=== PATIENT | female | born 1940 | race Caucasian/White ===

== ENCOUNTER → 2021-02-16 | Outpatient (CLI) | payer MEDICARE, MEDICAID ==
--- NOTE | 2021-03-17 03:04 | ECWPNPC ---
PATIENT NAME: TIANNA THORNTON : 1940 GENDER: FEMALE VISIT DATE: 02/16/2021 DISCHARGE DATE: 02/16/21939 VISIT LOCKED DATE TIME: PHYSICIAN: BARON GODINEZ PHYSICIAN PAGER NO: ACTIVE RESOURCE: BARON GODINEZ REASON FOR APPOINTMENT 1. LOW BACK PAIN HISTORY OF PRESENT ILLNESS DEPRESSION SCREENING: PHQ-2 (2015 EDITION) LITTLE INTEREST OR PLEASURE IN DOING THINGS?NOT AT ALL FEELING DOWN, DEPRESSED, OR HOPELESS?NOT AT ALL TOTAL SCORE0 GENERAL: HPI 80-YEAR-OLD FEMALE IN FOR INITIAL PAIN CONSULT REGARDING LOW BACK PAIN WITH RADICULOPATHY. PATIENT ADMITS TO RADICULOPATHY DOWN HER RIGHT LEG. PATIENT HAS EXPERIENCED BACK PAIN FOR SEVERAL YEARS HOWEVER SHE ADMITS TO EXACERBATION OF HER RADICULAR SYMPTOMS SINCE A FALL IN 2018. SHE DENIES INJECTIONS IN THE PAST. SHE RATES HER PAIN CURRENTLY AT A 3 OUT OF 10 BUT STATES THAT IN THE EVENING IT GETS TO A 7-8 OUT OF 10.. - -. FALL RISK SCREENING: SCREENING ONE FALL REPORTED IN THE LAST YEAR WITH INJURY. PATIENT DID NOT SEEK IMMEDIATE MEDICAL TREATMENT.. PAIN SCREENING: PATIENT HAS A COMPLAINT OF ACUTE OR CHRONIC PAIN :YES LOCATION OF PAIN:LOW BACK, RIGHT HIP INTENSITY OF PAIN (SCALE OF 1 TO 10):3 7 OR 8 MORE IN THE EVENING. WHAT DOES YOUR PAIN FEEL LIKE:ACHING, BURNING, CONTINOUS DURATION:CONTINOUS PAIN IS INCREASED BY:ACTIVITIES, PROLONGED STANDING, OTHERS PAIN IS DECREASED BY:USE OF PAIN MEDICATIONS, SITTING, OTHERS REPOSITIONING NURSING NOTE: - -. PAIN CENTER INTAKE QUESTIONS: DO YOU HAVE A HISTORY OF MRSA? :NO DO YOU TAKE A BLOOD THINNERS? :YES PLAVIX AND 81MG ASPIRIN DO YOU HAVE ANY BLEEDING DISORDERS? :YES DUODENAL ULCER ANY NEW NUMBNESS OR WEAKNESS IN YOUR LEGS OR ARMS? :NO ANY PACEMAKER,DEFIBRILLATOR, OR DORSAL COLUMN STIMULATOR? :YES PACEMAKER DO YOU HAVE ANY RASHES OR OPEN SORES? :NO ARE YOU ALLERGIC TO IV DYE? :NO ARE YOU DIABETIC? :NO ANY NEW PROBLEMS WITH YOUR MEDICATIONS? :NO HAVE YOU RECEIVED A VACCINE IN THE PAST 30 DAYS? :NO DO YOU PLAN TO RECEIVE A VACCINE IN THE NEXT 21 DAYS? :NO DO YOU NEED ANY PRESCRIPTION? :NO DO YOU TAKE ANY IMMUNOSUPPRESSIVE MEDICATIONS? :NO IS THERE A CHANCE YOU COULD BE ? :NO ARE YOU BREAST FEEDING? :NO CURRENT MEDICATIONS TAKING FAMOTIDINE 20 MG TABLET 1 TAB ORALLY TWICE A DAY TAKING VITAMIN D3 50 MCG (2000 UT) CAPSULE 1 CAPSULE ORALLY ONCE A DAY TAKING MAGNESIUM 250 MG TABLET 1 TABLET WITH A MEAL ORALLY ONCE A DAY TAKING ASPIRIN 81 81 MG TABLET CHEWABLE 1 TABLET ORALLY ONCE A DAY TAKING METOPROLOL TARTRATE 25 MG TABLET 1 TABLET WITH FOOD ORALLY QHS TAKING NITROGLYCERIN 0.4 MG TABLET SUBLINGUAL 1 TAB SUBLINGUAL NEEDED EVERY 5 MIN X 3 DOSES TAKING CLOPIDOGREL BISULFATE 75 MG TABLET 1 TABLET ORALLY ONCE A DAY TAKING OXYBUTYNIN CHLORIDE 5 MG TABLET 1 TABLET ORALLY TWICE A DAY TAKING CITALOPRAM HYDROBROMIDE 20 MG TABLET 1 TABLET ORALLY ONCE A DAY TAKING BREO ELLIPTA 100-25 MCG/INH AEROSOL POWDER BREATH ACTIVATED 1 PUFF INHALATION ONCE A DAY TAKING INCRUSE ELLIPTA 62.5 MCG/INH AEROSOL POWDER BREATH ACTIVATED 1 PUFF INHALATION ONCE A DAY TAKING HYDROCODONE-ACETAMINOPHEN 10-325 MG TABLET 1 TABLET NEEDED ORALLY QID PRN PAIN, MDD=4 TAKING LYRICA 150 MG CAPSULE 1 CAPSULE ORALLY TWICE A DAY, CODE D, MDD=2 TAKING CHLORTHALIDONE 25 MG TABLET 1/2 TABLET IN THE MORNING WITH FOOD ORALLY ONCE A DAY TAKING LISINOPRIL 5 MG TABLET 1 TABLET ORALLY ONCE A DAY AT BEDTIME TAKING ISOSORBIDE MONONITRATE ER 60 MG TABLET EXTENDED RELEASE 24 HOUR 1 TABLET IN THE MORNING ORALLY ONCE A DAY TAKING POTASSIUM CHLORIDE ZORA ER 10 MEQ TABLET EXTENDED RELEASE 1 TABLET WITH FOOD ORALLY ONCE A DAY TAKING METRONIDAZOLE 500 MG TABLET 1 TABLET ORALLY THREE TIMES A DAY TAKING CALCIUM 500 MG TABLET 1.5 TABLET WITH MEALS ORALLY TWICE A DAY TAKING DULOXETINE HCL 30 MG CAPSULE DELAYED RELEASE PARTICLES 1 CAPSULE ORALLY ONCE A DAY TAKING MAY USE NOWON FOCUS 1 TAB ORALLY DAILY NOT-TAKING DOCUSATE SODIUM 100 MG CAPSULE 1 CAPSULE NEEDED ORALLY TWICE A DAY NOT-TAKING EVOLOCUMAB 140 MG/ML SOLUTION AUTO-INJECTOR 1 ML SUBCUTANEOUS EVERY 14 DAYS, NOTES: REPATHA NOT-TAKING MELATONIN 5 MG TABLET 1 TABLET AT BEDTIME NEEDED WITH FOOD ORALLY ONCE A DAY NOT-TAKING POLYETHYLENE GLYCOL - POWDER DIRECTED ORALLY 17 GM DAILY NOT-TAKING CALCIUM 1 TAB ORAL NOT-TAKING LEVETIRACETAM 500 MG TABLET 1 TABLET ORALLY TWICE A DAY NOT-TAKING AMBIEN 10 MG TABLET 1 TABLET AT BEDTIME NEEDED ORALLY ONCE A DAY NOT-TAKING FLAGYL 500 MG TABLET 1 TABLET ORALLY TWICE A DAY NEEDED MEDICATION LIST REVIEWED AND RECONCILED WITH THE PATIENT PAST MEDICAL HISTORY BASAL CELL CARCINOMA, FACE COPD S/P PACEMAKER RENAL ARTERY STENT ALLERGIES N.K.D.A. SURGICAL HISTORY HEART CATHETERIZATION CORONARY ARTERY STENT 07/2020 VENTRAL HERNIA REPAIR TUBAL LIGATION ELBOW SURGERY BYPASS APPENDECTOMY 02/2019 PACEMAKER 07/2020 STENT NONE ALSO 07/2020 FAMILY HISTORY FATHER: MOTHER: SON(S): ALIVE DAUGHTER(S): ALIVE 2 SON(S) , 2 DAUGHTER(S) - HEALTHY. NO FAMILY HX OF PANCREATIC CANCER OR MELANOMA. SOCIAL HISTORY GENERAL: TOBACCO USE ARE YOU A:FORMER SMOKER UPDATED 12/30/2020 HOW LONG HAS IT BEEN SINCE YOU LAST SMOKED?> 10 YEARS [id number] VAPORNO E-CIGARETTENO LATEX QUESTIONNAIRE LATEX ALLERGY : HAVE YOU EVER DEVELOPED ANY TYPE OF REACTION AFTER HANDLING LATEX PRODUCTS SUCH RUBBER GLOVES, CONDOMS, DIAPHRAGMS, BALLOONS, SOCKS, OR UNDERWEAR?NO LATEX ALLERGY : HAVE YOU EVER DEVELOPED ANY TYPE OF REACTION DURING OR AFTER DENTAL APPOINTMENT, VAGINAL/RECTAL EXAMINATION, SURGICAL PROCEDURE, OR ANY OTHER EXPOSURE?NO LATEX RISK : HAVE YOU EVER HAD ANY DIFFICULTY BREATHING OR HIVES AFTER EATING OR HANDLING ANY FRUITS, OR VEGETABLES; SUCH KIWI, BANANAS, STONE FRUITS, OR CHESTNUTSNO LATEX RISK : DO YOU HAVE A PREVIOUS PERSONAL HISTORY OF MORE THAN NINE SURGERIES, SPINA BIFIDA, OR REPEATED CATHERIZATIONS? NO LATEX RISK : ARE YOU FREQUENTLY EXPOSED TO LATEX PRODUCTS IN YOUR OCCUPATION?NO DATE ASKED : 02/16/2021 ALCOHOL USE: NO. ALCOHOL SCREENING DID YOU HAVE A DRINK CONTAINING ALCOHOL IN THE PAST YEAR?NO POINTS0 INTERPRETATIONNEGATIVE RECREATIONAL DRUG USE DRUG USE?NO CAFFEINE CAFFEINE USE?YES 2-3 DAILY HIV / HEP-C SCREENING HIV TEST OFFERED TO PATIENT:NO HEP-C TEST OFFERED TO PATIENT:NO LANGUAGE LANGUAGES SPOKEN:CHADIAN EDUCATION LEVEL OF EDUCATION:GRADUATE LEARNING BARRIERS / SPECIAL NEEDS CHANGE FROM LAST VISIT?NO UPDATED 12/30/2020 BARRIERS TO LEARNING?NO HEARING IMPAIRED?NO VISION IMPAIRED?YES COGNITIVELY IMPAIRED?NO : READING READINESS TO LEARN?YES LEARNING PREFERENCES?NO LEARNING CAPABILITIES PRESENT?YES EMOTIONAL BARRIERS?NO SPECIAL DEVICES?NO FOOD OR BAGGAGE HANDLING RAMPMAN NEEDED?NO HOSPITALIZATION/MAJOR DIAGNOSTIC PROCEDURE FRACTURED FOOT [address] [facility] 07/2020 REVIEW OF SYSTEMS CONSTITUTIONAL: ANY RECENT FEVER NO . CHILLS NO . WEIGHT CHANGE OF UNKNOWN REASONS NO . MUSCULOSKELETAL: ANY UNUSUAL JOINT PAIN OR SWELLING NOT MENTIONED NO . SYSTEMIC LUPUS NO . ANY NEUROMUSCULAR DISORDER NOT MENTIONED NO . LYME DISEASE NO . GASTROENTEROLOGY: ANY NEW CHANGE IN BOWEL CONTROL? NO . HISTORY OF LIVER DISORDER NOT MENTIONED NO . HISTORY OF UNUSUAL ABDOMINAL PAIN OR CRAMPING NOT MENTIONED NO . NO CONSTIPATION. GENITOURINARY: ANY NEW CHANGE IN BLADDER CONTROL? NO . ANY RENAL/KIDNEY CONDITON NOT MENTIONED NO . NEUROLOGY: HISTORY OF TBI NOT MENTIONED NO . OTHER NEW NUMBNESS OR PAIN PATTERNS NOT MENTIONED NO . NEW ONSET DIZZINESS OR NEUROLOGICAL CHANGES NOT MENTIONED NO . HISTORY OF SEVERE HEADACHES NOT MENTIONED NO . HISTORY OF STROKE OR NEUROLOGICAL DISORDER NOT MENTIONED NO . CARDIOLOGY: HEART SURGERY NO . CONGESTIVE HEART FAILURE/FLUID OVERLOAD NOT MENTIONED NO . HISTORY OF CHEST PAIN,IRREGULAR HEART BEAT NOT MENTIONED NO . RESPIRATORY: SHORTNESS OF BREATH ON EXERTION, WHEEZES, UNUSUAL COUGH NOT MENTIONED NO . ENDOCRINOLOGY: ADRENAL GLAND OR THYROID DISORDERS NOT MENTIONED NO . UNUSUAL URINATION, DIZZINESS OR LETHARGY NOT MENTIONED NO . VITAL SIGNS WT 156.0 LBS, HT 61 IN, BMI 29.47 INDEX, BP 131/63 MM HG, HR 66 /MIN, RR 18 /MIN, TEMP 97.3 F, OXYGEN SAT % 92%, SAFE IN ENV? (Y/N) YES, NA INITIALS AW 0844, REVIEWED BY: MIKIE OLIVEIRA MA. EXAMINATION GENERAL EXAMINATION: GENERALNO ACUTE DISTRESS, WELL NOURISHED AND HYDRATED. PSYCHAPPROPRIATE MOOD AND AFFECT . LUNGS:CLEAR TO AUSCULTATION BILATERALLY, NO WHEEZES, RHONCHI, RALES. HEART:NO MURMURS, REGULAR RATE AND RHYTHM. BACK:POINT TENDER L4-L5, POSITIVE MODIFIED SLR RIGHT SIDE.. MUSCULOSKELETAL:NOTABLE WEAKNESS OF LEFT LOWER EXTREMITY, RIGHT LOWER EXTREMITY WITHIN NORMAL LIMITS. ASSESSMENTS INTERVERTEBRAL DISC DISORDER WITH RADICULOPATHY OF LUMBOSACRAL REGION - M51.17 (PRIMARY) TREATMENT INTERVERTEBRAL DISC DISORDER WITH RADICULOPATHY OF LUMBOSACRAL REGION LAB: 'LAB ONLY' LUPUS SCREEN CONFIRMATION (ORDERED FOR 02/16/2021) LAB: 'LAB ONLY' RPR RFX QN RPR/CONFIRM SYPH (ORDERED FOR 02/16/2021) MEDICATION: NORCO TABLET 5MG/325MG ORALLY (HYDROCODONE/ACETAMINOPHEN) (ORDERED FOR 02/22/2021) MEDICATION: VALIUM TAB 5MG ORALLY (DIAZEPAM) (ORDERED FOR 02/22/2021) SALINE LOCK (ORDERED FOR 02/22/2021) NOTES: 80-YEAR-OLD FEMALE IN FOR INITIAL PAIN CONSULT. GIVEN PRESENTING SYMPTOMS AND RESULTS OF PHYSICAL EXAMINATION RECOMMENDED LUMBAR EPIDURAL STEROID INJECTIONS WITH POST PROCEDURAL FOLLOW-UP. PATIENT HAS EXPRESSED UNDERSTANDING OF AND WAS IN AGREEMENT WITH TREATMENT PLAN. GIVEN TIME TO ASK QUESTIONS AND EXPRESS CONCERNS. CLINICAL NOTES: PREPROCEDURE AND PROCEDURE INFORMATION PRINTED AND PROVIDED TO PATIENT. PATIENT VERBALIZED AN UNDERSTANDING. MED HOLD REQUEST FOR CLOPIDOGREL FAXED TO DR. SIMONS. CONCHA OLIVEIRA MA. PROCEDURE CODES FA211 ESTABILISHED PATIENT [facility] CHARGE DISPOSITION & COMMUNICATION FOLLOW UP POST PROCEDURE (REASON: LUMBAR EPIDURAL STEROID INJECTION NEED HOLD ORDER FOR PLAVIX ) ELECTRONICALLY SIGNED BY ALEXA MONTES ON 03/16/2021 AT 09:06 AM EDT DISCLAIMER : THIS IS A VISIT SUMMARY EXTRACTED FROM THE [employer] CHART. IT IS NOT A COPY OF THE [employer] PROGRESS NOTE. LIBERTY
== END ==
LOC: M PAIN 08:30
PROVIDERS: ATTEND Family Medicine
DX: M51.17 Intervertebral disc disorders with radiculopathy, lumbosacral region (principal); J44.9 Chronic obstructive pulmonary disease, unspecified; Z95.0 Presence of cardiac pacemaker; Z95.828 Presence of other vascular implants and grafts; Z79.891 Long term (current) use of opiate analgesic; Z79.82 Long term (current) use of aspirin; Z79.899 Other long term (current) drug therapy; Z85.828 Personal history of other malignant neoplasm of skin

== ENCOUNTER → 2021-03-20 | Outpatient (CLI) | payer MEDICARE, MEDICAID | LOC: M LABSMTC 11:26 | PROVIDERS: ATTEND Anesthesiology | DX: Z01.812 Encounter for preprocedural laboratory examination (principal); Z20.822 Contact with and (suspected) exposure to COVID-19 ==

== ENCOUNTER → 2021-03-25 | Outpatient (CLI) | payer MEDICARE, MEDICAID ==
[~2021-03-25] MED LIST: ISOVUE-M 300 61% 15ML VIAL As Ordered ONE; LIDOCAINE 1% SDV 30ML VIAL As Ordered ONE; NORCO, ANEXSIA 5/325MG TABLET (HYDROcodone/ACETAMINOPHEN) As Ordered ONE; diazePAM 5MG TABLET As Ordered ONE; methylPREDNISolone SUSP 40MG/ML 1ML VIAL (DEPO MEDROL) As Ordered ONE
--- NOTE | 2021-03-25 11:01 | REP ---
INDICATION: LUMBAR EPIDURAL. COMPARISON: None. TECHNIQUE: Three views. 40.1 seconds of fluoroscopy time is reported. FINDINGS: A sequence of 3 last image hold fluoroscopically obtained spot radiograph(s) of the lumbar spine document(s) needle position(s) and contrast injection associated with injection procedure. IMPRESSION: Procedural imaging. <Electronically signed by Mateusz Schmidt > 03/25/21 9825
--- NOTE | 2021-03-26 02:32 | ECWPNPC ---
PATIENT NAME: TIANNA THORNTON : 1940 GENDER: FEMALE VISIT DATE: 03/25/2021 DISCHARGE DATE: 03/25/21 112 VISIT LOCKED DATE TIME: PHYSICIAN: POOJA GUTIERREZ MD PHYSICIAN PAGER NO: ACTIVE RESOURCE: POOJA GUTIERREZ MD REASON FOR APPOINTMENT 1. LUMBAR EPIDURAL STEROID INJECTION HISTORY OF PRESENT ILLNESS PAIN CENTER INTAKE QUESTIONS: DO YOU HAVE A HISTORY OF MRSA? :NO DO YOU TAKE A BLOOD THINNERS? :YES PLAVIX LAST DOSE Monday03-17-3031 DO YOU HAVE ANY BLEEDING DISORDERS? :NO ANY NEW NUMBNESS OR WEAKNESS IN YOUR LEGS OR ARMS? :NO ANY PACEMAKER,DEFIBRILLATOR, OR DORSAL COLUMN STIMULATOR? :YES DO YOU HAVE ANY RASHES OR OPEN SORES? :YES BRUISING "FROM PLAVIX" AND A SKIN PUNCH BIOPSY LEFT SHOULDER REGION" ARE YOU ALLERGIC TO IV DYE? :NO ARE YOU DIABETIC? :NO ANY NEW PROBLEMS WITH YOUR MEDICATIONS? :NO HAVE YOU RECEIVED A VACCINE IN THE PAST 30 DAYS? :NO DO YOU PLAN TO RECEIVE A VACCINE IN THE NEXT 21 DAYS? :NO DO YOU TAKE ANY IMMUNOSUPPRESSIVE MEDICATIONS? :NO ANY HISTORY OF SEIZURES? :NO ANY HISTORY OF CARDIAC ISSUES OR EVENTS? :NO DO YOU HAVE ANY KIDNEY OR LIVER DISEASE? :NO DO YOU HAVE SLEEP APNEA? :NO ANY RECENT HEAD INJURY? :NO DO YOU HAVE ANY NEW INFECTIONS? :NO IS THERE A CHANCE YOU COULD BE ? :NO ARE YOU BREAST FEEDING? :NO WHEN DID YOU LAST EAT? : -LAST NIGHT WHEN DID YOU LAST DRINK? : -THIS AM AT 0600 WHAT DID YOU LAST DRINK? : -EARLY THIS AM 0600 WATER DO YOU HAVE ANY OTHER QUESTIONS OR CONCERNS? : -GIRMA PATIENTS SON IS PTS RIDE HOME GENERAL: -. FALL RISK SCREENING: SCREENING : NO FALLS REPORTED IN THE LAST YEAR. PAIN SCREENING: PATIENT HAS A COMPLAINT OF ACUTE OR CHRONIC PAIN :YES LOCATION OF PAIN:RIGHT HIP, LOW BACK INTENSITY OF PAIN (SCALE OF 1 TO 10):5 WHAT DOES YOUR PAIN FEEL LIKE:TENDER, SORE DURATION:INTERMITTENT PAIN IS INCREASED BY:ACTIVITIES NURSING NOTE: -. CURRENT MEDICATIONS TAKING FAMOTIDINE 20 MG TABLET 1 TAB ORALLY TWICE A DAY TAKING VITAMIN D3 50 MCG (2000 UT) CAPSULE 1 CAPSULE ORALLY ONCE A DAY TAKING MAGNESIUM 250 MG TABLET 1 TABLET WITH A MEAL ORALLY ONCE A DAY TAKING ASPIRIN 81 81 MG TABLET CHEWABLE 1 TABLET ORALLY ONCE A DAY TAKING METOPROLOL TARTRATE 25 MG TABLET 1 TABLET WITH FOOD ORALLY QHS TAKING NITROGLYCERIN 0.4 MG TABLET SUBLINGUAL 1 TAB SUBLINGUAL NEEDED EVERY 5 MIN X 3 DOSES, NOTES: JULY TAKING CLOPIDOGREL BISULFATE 75 MG TABLET 1 TABLET ORALLY ONCE A DAY, NOTES: TAKING OXYBUTYNIN CHLORIDE 5 MG TABLET 1 TABLET ORALLY TWICE A DAY TAKING CITALOPRAM HYDROBROMIDE 20 MG TABLET 1 TABLET ORALLY ONCE A DAY TAKING BREO ELLIPTA 100-25 MCG/INH AEROSOL POWDER BREATH ACTIVATED 1 PUFF INHALATION ONCE A DAY TAKING INCRUSE ELLIPTA 62.5 MCG/INH AEROSOL POWDER BREATH ACTIVATED 1 PUFF INHALATION ONCE A DAY TAKING LYRICA 150 MG CAPSULE 1 CAPSULE ORALLY TWICE A DAY, CODE D, MDD=2 TAKING CHLORTHALIDONE 25 MG TABLET 1/2 TABLET IN THE MORNING WITH FOOD ORALLY ONCE A DAY TAKING LISINOPRIL 5 MG TABLET 1 TABLET ORALLY ONCE A DAY AT BEDTIME TAKING ISOSORBIDE MONONITRATE ER 60 MG TABLET EXTENDED RELEASE 24 HOUR 1 TABLET IN THE MORNING ORALLY ONCE A DAY TAKING POTASSIUM CHLORIDE ZORA ER 10 MEQ TABLET EXTENDED RELEASE 1 TABLET WITH FOOD ORALLY ONCE A DAY TAKING METRONIDAZOLE 500 MG TABLET 1 TABLET ORALLY THREE TIMES A DAY, NOTES: ONLY NEEDED TAKING CALCIUM 500 MG TABLET 1.5 TABLET WITH MEALS ORALLY TWICE A DAY TAKING DULOXETINE HCL 30 MG CAPSULE DELAYED RELEASE PARTICLES 1 CAPSULE ORALLY ONCE A DAY NOT-TAKING DULOXETINE HCL 30 MG CAPSULE DELAYED RELEASE PARTICLES 1 CAPSULE ORALLY ONCE A DAY NOT-TAKING HYDROCODONE-ACETAMINOPHEN 10-325 MG TABLET 1 TABLET NEEDED ORALLY QID PRN PAIN, MDD=4, NOTES: AVAILABLE WHEN INCREASED PAIN UNKNOWN MAY USE NOWON FOCUS 1 TAB ORALLY DAILY UNKNOWN DOCUSATE SODIUM 100 MG CAPSULE 1 CAPSULE NEEDED ORALLY TWICE A DAY UNKNOWN EVOLOCUMAB 140 MG/ML SOLUTION AUTO-INJECTOR 1 ML SUBCUTANEOUS EVERY 14 DAYS, NOTES: REPATHA UNKNOWN MELATONIN 5 MG TABLET 1 TABLET AT BEDTIME NEEDED WITH FOOD ORALLY ONCE A DAY UNKNOWN POLYETHYLENE GLYCOL - POWDER DIRECTED ORALLY 17 GM DAILY UNKNOWN CALCIUM 1 TAB ORAL UNKNOWN LEVETIRACETAM 500 MG TABLET 1 TABLET ORALLY TWICE A DAY UNKNOWN AMBIEN 10 MG TABLET 1 TABLET AT BEDTIME NEEDED ORALLY ONCE A DAY UNKNOWN FLAGYL 500 MG TABLET 1 TABLET ORALLY TWICE A DAY NEEDED MEDICATION LIST REVIEWED AND RECONCILED WITH THE PATIENT PAST MEDICAL HISTORY BASAL CELL CARCINOMA, FACE COPD S/P PACEMAKER RENAL ARTERY STENT MACULAR DEGENERATION BOTH EYES ALLERGIES N.K.D.A. SURGICAL HISTORY HEART CATHETERIZATION CORONARY ARTERY STENT 07/2020 VENTRAL HERNIA REPAIR TUBAL LIGATION ELBOW SURGERY BYPASS APPENDECTOMY 02/2019 PACEMAKER 07/2020 STENT NONE ALSO 07/2020 HOSPITALIZATION/MAJOR DIAGNOSTIC PROCEDURE FRACTURED FOOT [address] [facility] 07/2020 VITAL SIGNS WT 151.2 LBS, HT 61 IN, BMI 28.57 INDEX, BP 138/74 MM HG, HR 63 /MIN, RR 18 /MIN, TEMP 97.1 F, OXYGEN SAT % 91%, SAFE IN ENV? (Y/N) YES, NA INITIALS AW 0858, REVIEWED BY: KG. EXAMINATION GENERAL: THE PATIENT IS ALERT, ORIENTED TIMES THREE AND COOPERATIVE. LUNGS ARE CLEAR TO AUSCULTATION. HEART SHOWS REGULAR RHYTHM, NO MURMURS AND NO GALLOPS. ASSESSMENTS INTERVERTEBRAL DISC DISORDER WITH RADICULOPATHY OF LUMBOSACRAL REGION - M51.17 (PRIMARY) TREATMENT INTERVERTEBRAL DISC DISORDER WITH RADICULOPATHY OF LUMBOSACRAL REGION [facility] FLUORO GUIDE SPINE INJECTION (PAIN)[id number] OXYGEN AT 2 LITERS PER NASAL CANNULAJAVIER HOPPER 03/25/2021 11:25:56 AM > 2 LITERS NC ON DURING PROCEDURE COMPLETION OF PROCEDURAL VISIT WHEN MEETS CRITERIAJAVIER HOPPER 03/25/2021 11:30:07 AM > CRITERIA MET MEDICATION: NORCO TABLET 5MG/325MG ORALLY (HYDROCODONE/ACETAMINOPHEN)JENNIFER GARCIA 03/25/2021 9:29:16 AM > VERIFIED JAVIER HOPPER 03/25/2021 9:34:51 AM > GIVEN MEDICATION: VALIUM TAB 5MG ORALLY (DIAZEPAM)JENNIFER GARCIA 03/25/2021 9:29:29 AM > VERIFIED JAVIER HOPPER 03/25/2021 9:35:08 AM > GIVEN SALINE LOCKJAVIER HOPPER 03/25/2021 9:59:22 AM > 22 GAUGE STARTED RIGHT HAND BY Maria A LANDRY RN 1ST ATTEMPT OTHERS NOTES: 03/23/21 1416 UNABLE TO REACH PT. FOR PRE-PROCEDURE CALL. Mckay CORDOVA RN. PROCEDURES PAIN NURSING RECORD PROCEDURE IN ROOM 1025, PHYSICIAN IN ROOM 1038, START 1046, FINISH 1050, PHYSICIAN OUT OF ROOM 1053, OUT OF ROOM 1102, ECG OTHER PATIENT PACED, PATIENT SHIELDED YES, SAFETY STRAP YES, PREP BETADINE Melnaie HOPPER RN, DRESSING TEGADERM LOC: 1. ALERT, ORIENTED RESP: 1. REGULAR, NO DYSPNEA COLOR: 2. PALE SKIN: 1. WARM, DRY POSITION: 1. PRONE VITALS: 0948 P 60 93 93% 114/62 AW 1000 P 60 02 92 100/59 R 18 1015 02 92% R18 P 60 BP 114/54 AW IN ROOM 1025 148/67 60 PACED 96% ON 2 LITERS 18 1040 145/60 60 97% ON 2 LITERS 18 RESPIRATION 1055 136/54 60 90 ON RA 18 RESP NOTES Melanie HOPPER RN PATIENT INSTRUCTED TO RESTART PLAVIX 03-26-[address] SIMONS PT VERBALIZES UNDERSTANDING COMPLETION OF PROCEDURE APPOINTMENT: POST PAIN 1, DRESSING SITE DRY AND INTACT, IV DISCONTINUED, SITE CLEAR, CATHETER INTACT, GAIT STEADY, TEACHING COMPLETED, PATIENT ACKNOWLEDGES UNDERSTANDING YES, PROCEDURE APPOINTMENT COMPLETED AT 1120 PRE PROCEDURE DIAGNOSIS LUMBAR DISC DISORDER WITH RADICULOPATHY POST PROCEDURE DIAGNOSIS LUMBAR DISC DISORDER WITH RADICULOPATHY PROCEDURE LUMBAR EPIDURAL STEROID INJECTION UNDER FLUOROSCOPIC GUIDANCE SURGEON DR. POOJA GUTIERREZ LIVE TRUCK TECHNICIAN NONE ANESTHESIA LOCAL PRE PROCEDURE NOTE THE PATIENT HAS A HISTORY OF CHRONIC LOW BACK PAIN. I EVALUATED THE PATIENT AND REVIEWED THE CHART. I WENT OVER THE RISKS, ALTERNATIVES, AND BENEFITS ASSOCIATED WITH THIS PROCEDURE. THE PATIENT WOULD LIKE TO PROCEED AND GIVE CONSENT TO PERFORMED THE PROCEDURE. THE PATIENT DENIES UNEXPLAINABLE WEIGHT LOSS, FEVER, CHILLS, OR NEW CHANGES IN URINARY OR BOWEL CONTROL. THE PATIENT IS COVID-19 NEGATIVE DESCRIPTION OF PROCEDURE THE PATIENT WAS BROUGHT TO THE PROCEDURE ROOM AND PLACED IN THE PRONE POSITION. THE LUMBOSACRAL AREA WAS CLEANED WITH BETADINE SOLUTION AND DRAPED ASEPTICALLY. THE PROCEDURE WAS DONE UNDER STERILE CONDITIONS. A TIMEOUT WAS PERFORMED WHERE THE CONSENTED SITE WAS VERIFIED WITH EVERYONE IN THE ROOM. UNDER FLUOROSCOPIC GUIDANCE, THE TARGET POINT WAS SELECTED AT THE INTERLAMINAR LEVEL OF L5-S1. I CONFIRMED AGAIN THE SITE OF TARGET. LIDOCAINE WAS USED TO NUMB THE SKIN AND THE SUBCUTANEOUS TISSUE BELOW IT. EPIDURAL TUOHY NEEDLE, 17-GAUGE, WAS ADVANCED UNDER FLUOROSCOPIC GUIDANCE AND FOLLOWING PATIENT FEEDBACK UNTIL THE EPIDURAL SPACE WAS REACHED 6 CM DEEP INTO THE SKIN BY THE LOSS OF RESISTANCE TECHNIQUE. ISOVUE-M DYE 30%, 0.25 ML, WAS INJECTED SHOWING ADEQUATE SPREAD OF THE DYE. THEN, A SOLUTION OF 3 ML OF NORMAL SALINE WITH DEPO-MEDROL 40 MG WAS INJECTED SLOWLY FOLLOWING PATIENT FEEDBACK. THE MEDICATIONS WERE VERIFIED WITH THE NURSE. THERE WAS NO EVIDENCE OF BLOOD, PARESTHESIA OR CEREBROSPINAL FLUID DURING THE PROCEDURE. THE PATIENT WAS SENT TO THE RECOVERY ROOM. THE PATIENT WAS MOVING THE EXTREMITIES AND DOING WELL. THERE WERE NO COMPLICATIONS DURING THE PROCEDURE. ESTIMATED BLOOD LOSS WAS LESS THAN 5 ML. FLUOROSCOPY TIME WAS 40 SECONDS POST PROCEDURE NOTE THE PATIENT HAS SEVERE STENOSIS AT L4-L5. SHE MAY BE A CANDADITE FOR MILD OR VERTIFLEX IN THE FUTURE. DEPENDING ON THE RESULTS, CONSIDER A RIGHT L4-L5, L5-S1 TRANSFORAMINAL. THE PATIENT WILL BE SEEN IN A FOLLOW UP IN THE NEXT FEW WEEKS. I AM LOOKING FOR LONG LASTING RELIEF FOR THE PATIENT WITH THIS INTERVENTION. INSTRUCTIONS WERE GIVEN, QUESTIONS WERE ANSWERED, AND THE PATIENT EXPRESSED UNDERSTANDING AND AGREES WITH THE PLAN. I, XI AMOS, DOCUMENTED THE ABOVE INFORMATION ACTING A SCRIBE FOR DR. GTUIERREZ. I HAVE REVIEWED THE ABOVE DOCUMENT, WRITTEN BY XI AMOS, TEST CAR DRIVER, AND I VERIFY THAT IT IS ACCURATE PROCEDURE CODES 49785 LUMBAR/SACRAL W/ IMAGING DISPOSITION & COMMUNICATION FOLLOW UP FOLLOW UP WITH BRIM STITCHER (REASON: POST LUMBAR EPIDURAL STEROID INJECTION) ELECTRONICALLY SIGNED BY POOJA GUTIERREZ MD, MD ON 03/25/2021 AT 05:06 PM EDT DISCLAIMER : THIS IS A VISIT SUMMARY EXTRACTED FROM THE [employer] CHART. IT IS NOT A COPY OF THE [employer] PROGRESS NOTE. [employer]
== END ==
LOC: M PAIN 08:30
PROVIDERS: ATTEND Anesthesiology
DX: M51.17 Intervertebral disc disorders with radiculopathy, lumbosacral region (principal); J44.9 Chronic obstructive pulmonary disease, unspecified; Z95.0 Presence of cardiac pacemaker; Z79.82 Long term (current) use of aspirin; Z79.51 Long term (current) use of inhaled steroids; Z79.899 Other long term (current) drug therapy
CPT/HCPCS: 62323; J1030; Q9967

== ENCOUNTER → 2021-04-08 | Outpatient (CLI) | payer MEDICARE, MEDICAID ==
--- NOTE | 2021-04-10 06:31 | ECWPNPC ---
PATIENT NAME: TIANNA THORNTON : 1940 GENDER: FEMALE VISIT DATE: 04/08/2021 DISCHARGE DATE: 04/08/21 1032 VISIT LOCKED DATE TIME: PHYSICIAN: BARON GODINEZ PHYSICIAN PAGER NO: ACTIVE RESOURCE: BARON GODINEZ REASON FOR APPOINTMENT 1. POST LUMBAR EPIDURAL STEROID INJECTION HISTORY OF PRESENT ILLNESS GENERAL: HPI 80-YEAR-OLD FEMALE IN FOR POST LUMBAR EPIDURAL STEROID INJECTION FOLLOW-UP. PATIENT FEELS THE PROCEDURE DID HELP HER FOR APPROXIMATELY 1 WEEK. SHE RATES HER PAIN CURRENTLY AT A 6 OUT OF 10 AND DESCRIBES IT ACHING.. -. FALL RISK SCREENING: SCREENING : NO FALLS REPORTED IN THE LAST YEAR. PAIN SCREENING: PATIENT HAS A COMPLAINT OF ACUTE OR CHRONIC PAIN :YES LOCATION OF PAIN:LOW BACK, LEFT HIP, RIGHT HIP INTENSITY OF PAIN (SCALE OF 1 TO 10):6 WHAT DOES YOUR PAIN FEEL LIKE:ACHING DURATION:CONTINOUS PAIN IS INCREASED BY:ACTIVITIES PAIN IS DECREASED BY:USE OF PAIN MEDICATIONS NURSING NOTE: -. PAIN CENTER INTAKE QUESTIONS: DO YOU HAVE A HISTORY OF MRSA? :NO DO YOU TAKE A BLOOD THINNERS? :YES PLAVIX MANY STENTS DO YOU HAVE ANY BLEEDING DISORDERS? :NO ANY NEW NUMBNESS OR WEAKNESS IN YOUR LEGS OR ARMS? :NO ANY PACEMAKER,DEFIBRILLATOR, OR DORSAL COLUMN STIMULATOR? :YES PACEMAKER DO YOU HAVE ANY RASHES OR OPEN SORES? :NO ARE YOU ALLERGIC TO IV DYE? :NO ARE YOU DIABETIC? :NO ANY NEW PROBLEMS WITH YOUR MEDICATIONS? :NO HAVE YOU RECEIVED A VACCINE IN THE PAST 30 DAYS? :NO DO YOU PLAN TO RECEIVE A VACCINE IN THE NEXT 21 DAYS? :NO DO YOU NEED ANY PRESCRIPTION? :NO DO YOU TAKE ANY IMMUNOSUPPRESSIVE MEDICATIONS? :NO DO YOU HAVE ANY KIDNEY OR LIVER DISEASE? :YES 2 KIDNEY STENTS IS THERE A CHANCE YOU COULD BE ? :NO ARE YOU BREAST FEEDING? :NO CURRENT MEDICATIONS TAKING VITAMIN D3 50 MCG (2000 UT) CAPSULE 1 CAPSULE ORALLY ONCE A DAY TAKING MAGNESIUM 250 MG TABLET 1 TABLET WITH A MEAL ORALLY ONCE A DAY TAKING ASPIRIN 81 81 MG TABLET CHEWABLE 1 TABLET ORALLY ONCE A DAY TAKING METOPROLOL TARTRATE 25 MG TABLET 1 TABLET WITH FOOD ORALLY QHS TAKING NITROGLYCERIN 0.4 MG TABLET SUBLINGUAL 1 TAB SUBLINGUAL NEEDED EVERY 5 MIN X 3 DOSES, NOTES: JULY TAKING CLOPIDOGREL BISULFATE 75 MG TABLET 1 TABLET ORALLY ONCE A DAY, NOTES: 6-23-201 TAKING OXYBUTYNIN CHLORIDE 5 MG TABLET 1 TABLET ORALLY TWICE A DAY TAKING CITALOPRAM HYDROBROMIDE 20 MG TABLET 1 TABLET ORALLY ONCE A DAY TAKING BREO ELLIPTA 100-25 MCG/INH AEROSOL POWDER BREATH ACTIVATED 1 PUFF INHALATION ONCE A DAY TAKING INCRUSE ELLIPTA 62.5 MCG/INH AEROSOL POWDER BREATH ACTIVATED 1 PUFF INHALATION ONCE A DAY TAKING CHLORTHALIDONE 25 MG TABLET 1/2 TABLET IN THE MORNING WITH FOOD ORALLY ONCE A DAY TAKING LISINOPRIL 5 MG TABLET 1 TABLET ORALLY ONCE A DAY AT BEDTIME TAKING ISOSORBIDE MONONITRATE ER 60 MG TABLET EXTENDED RELEASE 24 HOUR 1 TABLET IN THE MORNING ORALLY ONCE A DAY TAKING POTASSIUM CHLORIDE ZORA ER 10 MEQ TABLET EXTENDED RELEASE 1 TABLET WITH FOOD ORALLY ONCE A DAY TAKING METRONIDAZOLE 500 MG TABLET 1 TABLET ORALLY THREE TIMES A DAY, NOTES: ONLY NEEDED TAKING CALCIUM 500 MG TABLET 1.5 TABLET WITH MEALS ORALLY TWICE A DAY TAKING DULOXETINE HCL 30 MG CAPSULE DELAYED RELEASE PARTICLES 1 CAPSULE ORALLY ONCE A DAY TAKING FAMOTIDINE 20 MG TABLET 1 TAB ORALLY TWICE A DAY TAKING LYRICA 150 MG CAPSULE 1 CAPSULE ORALLY TWICE A DAY, CODE D, MDD=2 NOT-TAKING MAY USE NOWON FOCUS 1 TAB ORALLY DAILY NOT-TAKING DOCUSATE SODIUM 100 MG CAPSULE 1 CAPSULE NEEDED ORALLY TWICE A DAY NOT-TAKING EVOLOCUMAB 140 MG/ML SOLUTION AUTO-INJECTOR 1 ML SUBCUTANEOUS EVERY 14 DAYS, NOTES: REPATHA NOT-TAKING MELATONIN 5 MG TABLET 1 TABLET AT BEDTIME NEEDED WITH FOOD ORALLY ONCE A DAY NOT-TAKING POLYETHYLENE GLYCOL - POWDER DIRECTED ORALLY 17 GM DAILY NOT-TAKING CALCIUM 1 TAB ORAL NOT-TAKING LEVETIRACETAM 500 MG TABLET 1 TABLET ORALLY TWICE A DAY NOT-TAKING AMBIEN 10 MG TABLET 1 TABLET AT BEDTIME NEEDED ORALLY ONCE A DAY NOT-TAKING FLAGYL 500 MG TABLET 1 TABLET ORALLY TWICE A DAY NEEDED NOT-TAKING DULOXETINE HCL 30 MG CAPSULE DELAYED RELEASE PARTICLES 1 CAPSULE ORALLY ONCE A DAY NOT-TAKING HYDROCODONE-ACETAMINOPHEN 10-325 MG TABLET 1 TABLET NEEDED ORALLY QID PRN PAIN, MDD=4, NOTES: AVAILABLE WHEN INCREASED PAIN MEDICATION LIST REVIEWED AND RECONCILED WITH THE PATIENT PAST MEDICAL HISTORY BASAL CELL CARCINOMA, FACE COPD S/P PACEMAKER RENAL ARTERY STENT MACULAR DEGENERATION BOTH EYES ALLERGIES N.K.D.A. SOCIAL HISTORY GENERAL: TOBACCO USE ARE YOU A:FORMER SMOKER UPDATED 12/30/2020 HOW LONG HAS IT BEEN SINCE YOU LAST SMOKED?> 10 YEARS [id number] VAPORNO E-CIGARETTENO LATEX QUESTIONNAIRE LATEX ALLERGY : HAVE YOU EVER DEVELOPED ANY TYPE OF REACTION AFTER HANDLING LATEX PRODUCTS SUCH RUBBER GLOVES, CONDOMS, DIAPHRAGMS, BALLOONS, SOCKS, OR UNDERWEAR?NO LATEX ALLERGY : HAVE YOU EVER DEVELOPED ANY TYPE OF REACTION DURING OR AFTER DENTAL APPOINTMENT, VAGINAL/RECTAL EXAMINATION, SURGICAL PROCEDURE, OR ANY OTHER EXPOSURE?NO DATE ASKED : 02/26/2021 LATEX RISK : HAVE YOU EVER HAD ANY DIFFICULTY BREATHING OR HIVES AFTER EATING OR HANDLING ANY FRUITS, OR VEGETABLES; SUCH KIWI, BANANAS, STONE FRUITS, OR CHESTNUTSNO LATEX RISK : DO YOU HAVE A PREVIOUS PERSONAL HISTORY OF MORE THAN NINE SURGERIES, SPINA BIFIDA, OR REPEATED CATHERIZATIONS? NO LATEX RISK : ARE YOU FREQUENTLY EXPOSED TO LATEX PRODUCTS IN YOUR OCCUPATION?NO ALCOHOL USE: NO. ALCOHOL SCREENING DID YOU HAVE A DRINK CONTAINING ALCOHOL IN THE PAST YEAR?NO POINTS0 INTERPRETATIONNEGATIVE RECREATIONAL DRUG USE DRUG USE?NO CAFFEINE CAFFEINE USE?YES 2-3 DAILY HIV / HEP-C SCREENING HIV TEST OFFERED TO PATIENT:NO HEP-C TEST OFFERED TO PATIENT:NO LANGUAGE LANGUAGES SPOKEN:[place] EDUCATION LEVEL OF EDUCATION:GRADUATE LEARNING BARRIERS / SPECIAL NEEDS CHANGE FROM LAST VISIT?NO UPDATED 12/30/2020 BARRIERS TO LEARNING?NO HEARING IMPAIRED?NO VISION IMPAIRED?YES COGNITIVELY IMPAIRED?NO : READING READINESS TO LEARN?YES LEARNING PREFERENCES?NO LEARNING CAPABILITIES PRESENT?YES EMOTIONAL BARRIERS?NO SPECIAL DEVICES?NO CANE PILER NEEDED?NO REVIEW OF SYSTEMS CONSTITUTIONAL: ANY RECENT FEVER NO . CHILLS NO . WEIGHT CHANGE OF UNKNOWN REASONS NO . GASTROENTEROLOGY: NEW UNEXPLAINABLE CHANGES IN BOWEL CONTROL NO . CONSTIPATION NO . GENITOURINARY: ANY NEW CHANGE IN BLADDER CONTROL? NO . NEUROLOGY: NEW ONSET DIZZINESS OR NEUROLOGICAL CHANGES NOT MENTIONED NO . NEW NUMBNESS OR PAIN PATTERNS NOT MENTIONED AND PERTINENT TO TODAY'S VISIT NO . CARDIOLOGY: NEW CHEST PRESSURE NO . PATIENT DENIES NO . RESPIRATORY: UNEXPLAINABLE COUGH NO . NEW SHORTNESS OF BREATH NO . VITAL SIGNS WT 152 LBS, HT 61 IN, BMI 28.72 INDEX, BP 142/60 MM HG, HR 65 /MIN, RR 18 /MIN, TEMP 98.0 F, OXYGEN SAT % 95%, SAFE IN ENV? (Y/N) Y, NA INITIALS WA 09:39, REVIEWED BY: RAINA. EXAMINATION GENERAL EXAMINATION: GENERALNO ACUTE DISTRESS, WELL NOURISHED AND HYDRATED. PSYCHAPPROPRIATE MOOD AND AFFECT . LUNGS:LUNG SOUNDS DECREASED BILATERALLY . HEART:NO MURMURS, REGULAR RATE AND RHYTHM. BACK:PATIENT POINT TENDER ALONG LUMBAR SPINE. MUSCULOSKELETAL:EQUAL STRENGTH OF THE LOWER EXTREMITIES BILATERALLY. ASSESSMENTS OTHER CHRONIC PAIN - G89.29 (PRIMARY) INTERVERTEBRAL DISC DISORDER WITH RADICULOPATHY OF LUMBOSACRAL REGION - M51.17 TREATMENT OTHER CHRONIC PAIN PAIN PROCEDURE LOGDATE OF [id number]/01/2021PROCEDURE:LUMBAR EPIDURAL STEROID INJECTIONAMOUNT OF PRE SEDATENORCO 5MG/325MG; VALIUM 5MGRESULT:PATIENT STATES PROCEDURE HELPED X1 WEEK INTERVERTEBRAL DISC DISORDER WITH RADICULOPATHY OF LUMBOSACRAL REGION MEDICATION: PAIN VALIUM TAB 5MG ORALLY (DIAZEPAM) (ORDERED FOR 04/16/2021) MED: PAIN NORCO TABLET 5MG/325MG ORALLY HYDROCODONE/ACETAMINOPHEN (ORDERED FOR 04/16/2021) NOTES: 80-YEAR-OLD FEMALE IN FOR CHRONIC PAIN FOLLOW-UP. GIVEN PRESENTING SYMPTOMS AND RECOMMENDATIONS OF DR. GUTIERREZ RECOMMEND RIGHT TRANSFORAMINAL LUMBAR EPIDURAL STEROID INJECTION L4-L5 L5-S1 WITH POSTPROCEDURAL FOLLOW-UP. PATIENT HAS EXPRESSED UNDERSTANDING OF AND WAS IN AGREEMENT WITH TREATMENT PLAN. GIVEN TIME TO ASK QUESTIONS AND EXPRESS CONCERNS. PROCEDURE CODES FA211 ESTABILISHED PATIENT [facility] CHARGE DISPOSITION & COMMUNICATION FOLLOW UP POST PROCEDURE (REASON: RIGHT TRANSFORAMINAL LUMBAR EPIDURAL STEROID INJECTIONS L4-5 L5-S1 HOLD PLAVIX ) ELECTRONICALLY SIGNED BY ALEXA MONTES ON 04/09/2021 AT 08:56 AM EDT DISCLAIMER : THIS IS A VISIT SUMMARY EXTRACTED FROM THE [employer] CHART. IT IS NOT A COPY OF THE [employer] PROGRESS NOTE. MTDD
== END ==
LOC: M PAIN 09:15
PROVIDERS: ATTEND Family Medicine
DX: M51.17 Intervertebral disc disorders with radiculopathy, lumbosacral region (principal); G89.29 Other chronic pain; J44.9 Chronic obstructive pulmonary disease, unspecified; Z95.0 Presence of cardiac pacemaker; Z87.891 Personal history of nicotine dependence; Z79.82 Long term (current) use of aspirin; Z79.51 Long term (current) use of inhaled steroids; Z79.899 Other long term (current) drug therapy

== ENCOUNTER → 2021-05-05 | Outpatient (CLI) | payer MEDICARE, MEDICAID | LOC: M LABSMTC 10:44 | PROVIDERS: ATTEND Anesthesiology | DX: Z01.812 Encounter for preprocedural laboratory examination (principal); Z20.822 Contact with and (suspected) exposure to COVID-19 ==

== ENCOUNTER → 2021-05-10 | Outpatient (CLI) | payer MEDICARE | LOC: M PAIN 13:00 | PROVIDERS: ATTEND Anesthesiology | DX: M48.061 Spinal stenosis, lumbar region without neurogenic claudication (principal); J44.9 Chronic obstructive pulmonary disease, unspecified; H35.30 Unspecified macular degeneration; I25.2 Old myocardial infarction; Z95.0 Presence of cardiac pacemaker; Z79.82 Long term (current) use of aspirin; Z79.51 Long term (current) use of inhaled steroids; Z96.0 Presence of urogenital implants; Z79.899 Other long term (current) drug therapy; Z85.828 Personal history of other malignant neoplasm of skin; Z79.02 Long term (current) use of antithrombotics/antiplatelets; Z87.891 Personal history of nicotine dependence ==

== ENCOUNTER → 2021-05-11 | Outpatient (REF) | payer MEDICARE ==
[2021-05-12 12:15] LABS: BASO % 0.6 % (0.0-1.0); EOS # 0.1 10^3/uL (0.0-0.5); EOS % 1.4 % (0.0-3.0); HEMATOCRIT 39.4 % (36.0-47.0); HEMOGLOBIN 12.5 g/dl (12.0-15.5); LYMPH # 1.3 10^3/uL (1.5-5.0); LYMPH % 18.5 % (24.0-44.0); MEAN CORPUSCULAR HEMOGLOBIN 28.7 pg (27.0-33.0); MEAN CORPUSCULAR HGB CONC 31.7 g/dl (32.0-36.5); MEAN CORPUSCULAR VOLUME 90.4 fl (80.0-96.0); MONO # 0.9 10^3/uL (0.0-0.8); MONO % 12.3 % (2.0-8.0); NEUTROPHILS # 4.7 10^3/uL (1.5-8.5); NEUTROPHILS % 66.6 % (36.0-66.0); PLATELET COUNT, AUTOMATED 250 10^3/uL (150-450); RED BLOOD COUNT 4.36 10^6/uL (4.00-5.40); WHITE BLOOD COUNT 7.1 10^3/uL (4.0-10.0)
[2021-05-12 12:57] LABS: ALBUMIN 3.4 GM/DL (3.2-5.2); ALT/SGPT 34 U/L (12-78); BILIRUBIN,TOTAL 0.3 MG/DL (0.2-1.0); BLOOD UREA NITROGEN 23 MG/DL (7-18); CALCIUM LEVEL 7.9 MG/DL (8.8-10.2); CARBON DIOXIDE LEVEL 29 MEQ/L (21-32); CHLORIDE LEVEL 105 MEQ/L (98-107); CREATININE FOR GFR 0.68 MG/DL (0.55-1.30); FREE T4 0.93 NG/DL (0.76-1.46); GLOMERULAR FILTRATION RATE > 60.0 (>39); GLUCOSE, FASTING 91 MG/DL (70-100); MAGNESIUM LEVEL 1.9 MG/DL (1.8-2.4); POTASSIUM SERUM 4.8 MEQ/L (3.5-5.1); SODIUM LEVEL 139 MEQ/L (136-145)
== END ==
LOC: M SFHCCLAY 13:47
PROVIDERS: ATTEND Family Medicine
DX: R19.7 Diarrhea, unspecified (principal)
CPT/HCPCS: 80053; 83735; 84439; 84443; 85025; G0463

== ENCOUNTER → 2021-05-12 | Outpatient (REF) | payer MEDICARE | LOC: M LAB REF 16:03 | PROVIDERS: ATTEND Family Medicine | DX: R19.7 Diarrhea, unspecified (principal) ==

== ENCOUNTER 2021-07-14 15:53 | Emergency (ER) | payer MEDICARE, MEDICAID ==
--- OUTSIDE RECORDS SUMMARY | 2021-07-14 15:59 | CCD ---
Author Author [facility] Organization [facility] Address Unknown Phone Unavailable Care Team Providers Care Matchbook Maker Name Role Phone Lyndon Schwartz Unavailable PROBLEMS Type Condition ICD9-CM Code [id number] Code Onset Dates Condition S tatus W/U Status Risk SNOMED Code Notes Problem Seborrheic keratoses L82.1 Active confirmed 291087284 Problem Actinic keratosis L57.0 Active confirmed 20 4539373 Problem History of nonmelanoma skin cancer Z85.828 Activ e confirmed 448265930 Problem Lentigines L81.4 Active confirmed 086471158 Problem Basal cell carcinoma of scalp C44.41 Active confirm ed 359409059 Problem Neuralgia M79.2 Active confirmed 78656754 Problem Dependence on supplemental oxygen Z99.81 Active confirmed 205650143420 Problem 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 Active confirmed 886338178 Problem History of diverticulitis Z87.19 Active confirmed 129830361840121 Problem COPD (chronic obstructive pulmonary disease) jose g e management patient J44.9 Active confirmed 485245197 Problem History of stent insertion of renal artery Z98.890 Active confirmed 730468675 Problem Other chronic pain G89.29 Active confirmed 8 4159638 Problem S/P coronary artery stent placement Z95.5 Acti ve confirmed 332184471 Problem Primary hypertension I10 Active confirmed 98212199 Problem Renovascular hypertension I15.0 Active confirmed 836167308 Problem 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 Active confirmed 537383232 Problem 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 Active confirmed 50175157 Problem Rheumatoid arthritis involvi ng multiple sites with positive rheumatoid factor M05.79 Active confirmed 685708441 Problem 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 Active confirmed 383333801 ALLERGIES No Known Allergies ENCOUNTERS from 1940 to 2021-06-29 Encounter Location Date Provider Diagnosis [facility] [address] [phone] [place] [address] Jun, Lyndon Schwartz IMMUNIZATIONS Vaccine Route Administration Date Status COVID-19 dose #2 given elsewhere Unspecified Unknown Nov 15, 2020 Administered COVID-19 dose #1 given elsewhere Unspecified Unknown Oct 25, 2020 Administered SOCIAL HISTORY Tobacco Use: Social History Observation Description Date Details (start date - stop date) Former Smoker Sex Assigned At : Social History Observation Description Sex Assigned At Unknown Education: Question Answer Notes Level of Education: Graduate Language: Question Answer Notes Languages spoken: Frisian Alcohol Screening: Question Answer Notes Did you have a drink containing alcohol in the past year? No Points 0 Interpretation Negative Tobacco Use: Question Answer Notes Are you a: former smoker updated 05/25/2021 How long has it been since you last smoked? > 10 years [id number] REASON FOR REFERRAL No Information VITAL SIGNS No information MEDICATIONS Medication SIG (Take, Route, Frequency, Duration) Notes Start Da te End Date Status Potassium Chloride Kinjal ER 10 MEQ 1 tablet with food Orally Once a da y Active Metoprolol Tartrate 25 MG 1 tablet with food Orally qhs 05/09/21 Active Docusate Sodium 100 MG 1 capsule as needed Orally twice a day Not-Taking Nitroglycerin 0.4 MG 1 tab Sublingual as needed every 5 min x 3 doses july Active HYDROcodone-Acetaminophen 10-325 MG 1 tablet as needed Orally qid prn pain, MDD=4 none lately 10 Apr, 2021 Active Isosorbide Mononitrate ER 60 MG 1 tablet in the morning Oral ly Once a day 05/09/21 Active Aspirin 81 81 MG 1 tablet Orally Once a day Active Evolocumab 140 MG/ML 1 ml Subcutaneous every 14 days repatha Not-Taking Citalopram Hydrobromide 20 MG 1 tablet Orally Once a day Active Chlorthalidone 25 MG 1/2 tablet in the morning with food Or ally Once a day 05/10/21 Active Melatonin 5 MG 1 tablet at bedtime as needed with food Orally Once a day Not-Taking Oxybutynin Chloride 5 MG 1 tablet Orally Twice a day Active Flagyl 500 MG 1 tablet Orally twice a day as needed 05/10/21 Not-Taking Famotidine 20 MG 1 tab Orally Twice a day Active Clopidogrel Bisulfate 75 MG 1 tablet Orally Once a day 05/03/21 Active Calcium 500 MG 1.5 tablet with meals Orally Twice a day Active Lisinopril 5 MG 1 tablet Orally Once a day at bedtime 05/09/21 05 J 2020 Active Breo Ellipta 100-25 MCG/INH 1 puff Inhalation Once a day Active Lyrica 150 MG 1 capsule Orally Twice a day, CODE D, MDD=2 05/09/21 Active Ambien 10 MG 1 tablet at bedtime as needed Orally Once a day Not-Taking Incruse Ellipta 62.5 MCG/INH INHALE 1 PUFF BY MOUTH ONCE A DAY for 90 Active metroNIDAZOLE 500 MG 1 tablet Orally Three times a day for 1 0 day(s) only as needed January, Not-Taking levoFLOXacin 500 MG 1 tablet Orally Once a day for 10 day(s) Apr, Not-Taking Calcium 1 tab Oral Not-Taking May Use 1 tab orally Daily Not-Ta thien levETIRAcetam 500 MG 1 tablet Orally Twice a day Not-Taking Polyethylene Glycol - as directed orally 17 GM daily Not-Taking Vitamin D3 50 MCG (1999 UT) 1 capsule Orally Once a day Active DULoxetine HCl 30 MG 1 capsule Orally Once a day Active DULoxetine HCl 30 MG 1 capsule Orally Once a day for 30 day(s) Not-Taking Magnesium 250 MG 1 tablet with a meal Orally Once a day Active PROCEDURES No Information RESULTS No Results REASON FOR VISIT procedure/x ray MEDICAL (GENERAL) HISTORY Type Description Date Medical History Basal cell carcinoma, face Medical History copd Medical History s/p pacemaker Medical History renal artery stent Medical History Macular degeneration both eyes Medical History diverticulitis Medical History OR Surgical History heart catheterization Surgical History coronary artery stent 07/2020 Surgical History ventral hernia repair Surgical History tubal ligation Surgical History elbow surgery Surgical History bypass Surgical History appendectomy 02/2019 Surgical History pacemaker 07/2020 Surgical History Stent none also 07/2020 Hospitalization History fractured foot 2017 Hospitalization History stroke [address] [facility] 07/2020 Goals Section No Information Health Concerns No Information MEDICAL EQUIPMENT No Information MENTAL STATUS No Information FUNCTIONAL STATUS No Information ASSESSMENTS No Information PLAN OF TREATMENT Medication Medication Name Sig Start Date Stop Date Vitamin D3 50 MCG (1999 UT) 1 capsule Orally Once a day Magnesium 250 MG 1 tablet with a meal Orally Once a day Calcium 500 MG 1.5 tablet with meals Orally Twice a day DULoxetine HCl 30 MG 1 capsule Orally Once a day Isosorbide Mononitrate ER 60 MG 1 tablet in the morning Orally O nce a day Oxybutynin Chloride 5 MG 1 tablet Orally Twice a day Potassium Chloride Kinjal ER 10 MEQ 1 tablet with food Orally Once a day Aspirin 81 81 MG 1 tablet Orally Once a day HYDROcodone-Acetaminophen 10-325 MG 1 tablet as needed Orally qid prn pain, MDD=4 10 Apr, 2021 Chlorthalidone 25 MG 1/2 tablet in the morning with food Orally Once a day Clopidogrel Bisulfate 75 MG 1 tablet Orally Once a day Lyrica 150 MG 1 capsule Orally Twice a day, CODE D, MDD=2 Lisinopril 5 MG 1 tablet Orally Once a day at bedtime Sep, Famotidine 20 MG 1 tab Orally Twice a day Incruse Ellipta 62.5 MCG/INH INHALE 1 PUFF BY MOUTH ONCE A DAY f or 90 Nitroglycerin 0.4 MG 1 tab Sublingual as needed every 5 min x 3 doses Breo Ellipta 100-25 MCG/INH 1 puff Inhalation Once a day Citalopram Hydrobromide 20 MG 1 tablet Orally Once a day Metoprolol Tartrate 25 MG 1 tablet with food Orally qhs Next Appt Details Provider Name:Helio Zabala, 2021-07-01 01 :00:00 PM, [address] [place] [address], [place], [address], Provider Name:Joy Samuels, 11:45:00 AM, [address] [place] [address], , [place], [address], Insurance Providers Payer Name Payer Address Payer Phone Insured Name Patient Relati onship to Insured Coverage Start Date Coverage End Date MEDICARE COMPLETE [employer] [address] [address] [facility] [phone] TIANNA THORNTON self
--- OUTSIDE RECORDS SUMMARY | 2021-07-14 15:59 | CCD | Continuity of Care Document ---
Author Author [facility] P[facility] Organization Unknown Address [address] [place] [address] Phone [phone] Care Team Providers Care Material Handler 1St Shift Name Role Phone Helio Zabala M.D. AUTM [phone] Problems Description No Information Available Social History Type Date Description Comments Sex Unknown Allergies, Adverse Reactions, Alerts Active Allergies Reaction Severity Comments Date NSAIDs hx PUD and CAD 05/06/2020 Klonopin confusion 01/21/2021 Medications Active Medications SIG Qnty Indications Ordering Provide r Date Duloxetine HCL 30mg Caps Part 1 po bid Sofia Quick M.D. 02/05/2021 Immunizations Description No Information Available Vital Signs Date Vital Result Comment 05/06/2021 5:38am BP Systolic 130 mmHg BP Diastolic 80 mmHg Heart Rate 72 /min Respiratory Rate 16 /min 01/19/2021 1:20pm BP Systolic 120 mmHg BP Diastolic 70 mmHg Heart Rate 76 /min Respiratory Rate 16 /min Results Description No Information Available Procedures Date Code Description Status 05/06/2021 26990 Office/Outpatient Established Mo d MDM 30-39 Min Completed 02/01/2021 39866 Nerve Conduction 13+ Studies Com pleted 02/01/2021 41623 Needle Electromyography Complete , Five Or More Muscles Studied Completed 02/01/2021 34822 Needle Electromyography Complete , Five Or More Muscles Studied Completed 01/19/2021 41117 Office/Outpatient Established Mo d MDM 30-39 Min Completed Medical Devices Description No Information Available Encounters Type Date Location Provider Dx Diagnosis Office Visit 05/06/2021 8:00a Main office - [place] Zari eddy P.A.-C. 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 05/06/2021 R55 Syncope and collapse Zari salas, P.A.-C. 05/06/2021 G40.89 Other seizures Zari Ochoa P.A.-C. 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 05/06/2021 M54.5 Low back pain Zari Ochoa, P.A.-C. 05/06/2021 G60.9 Hereditary and idiopathic neurop athy, unspecified Zari Ochoa, P.A.-C. 04/21/2021 R42 Dizziness and giddiness Zari Ochoa P.A.-C. 04/21/2021 R55 Syncope and collapse Zari salas P.A.-C. 04/21/2021 G40.89 Other seizures Zari Ochoa P.A.-C. 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 04/21/2021 M54.5 Low back pain Zari Ochoa, P.A.-C. 04/21/2021 G60.9 Hereditary and idiopathic neurop athy, unspecified Zari Ochoa P.A.-C. 02/01/2021 M54.5 Low back pain Judi Blackmon 02/01/2021 M54.16 Radiculopathy, lumbar region Nica Quick M.D. 02/01/2021 R20.2 Paresthesia of skin Carline Ynes, M.D. 02/01/2021 G60.9 Hereditary and idiopathic neurop athy, unspecified Carline Ynes, MJosé MiguelD. 01/19/2021 G40.89 Other seizures Ric HaneyAJosé Miguel-C. 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 01/19/2021 R20.2 Paresthesia of skin Lo Torres.-CJosé Miguel Plan of Treatment Future Appointment(s):* 08/06/2021 8:45 am - Martinez Haney.A.-C. at [facility] 05/06/2021 - Rainer Haney-C.* R42 Dizziness and giddiness* Comments:* Resolved. * R55 Syncope and collapse* Comments:* Not recurrent since having a pacemaker placed. * G40.89 Other seizures* Comments:* Not recurrent since having her pacemaker placed. She no longer takes Keppra. 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 * M54.5 Low back pain* Comments:* Follow up at the pain clinic. * G60.9 Hereditary and idiopathic neuropathy, unspecified* Comments:* Increase Cymbalta to 30 mg bid or 60 mg daily. She will call when she needs a refill. * Follow up:* 3 months Functional Status Description No Information Available Mental Status Description No Information Available Referrals Refer to Reason for Referral Status Appt Date Lyndon Rubio M.D. LOW BACK PAIN Created [facility] [address] [place], [place] [id number] [phone] [facility]ology POSITIVE RF AND ESR WITH HISTORY OF CAD Created Rheumatology [address] [place] [address] [phone]
--- OUTSIDE RECORDS SUMMARY | 2021-07-14 15:59 | CCD ---
Author Author [facility] Organization [facility] Address Unknown Phone Unavailable Care Team Providers Care Renewal Specialist Name Role Phone Helio Zabala Unavailable PROBLEMS Type Condition ICD9-CM Code [id number] Code Onset Dates Condition S tatus W/U Status Risk SNOMED Code Notes Problem Actinic keratosis L57.0 Active confirmed 20 8399673 Problem Lentigines L81.4 Active confirmed 989352519 Problem Seborrheic keratoses L82.1 Active confirmed 037293394 Problem Neuralgia M79.2 Active confirmed 46582349 Problem History of nonmelanoma skin cancer Z85.828 Activ e confirmed 364165503 Problem 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 Active confirmed 673973055 Problem Basal cell carcinoma of scalp C44.41 Active confirm ed 299755185 Problem S/P coronary artery stent placement Z95.5 Acti ve confirmed 227925306 Problem History of diverticulitis Z87.19 Active confirmed 807000474035019 Problem History of stent insertion of renal artery Z98.890 Active confirmed 883296201 Problem 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 Active confirmed 640394783 Problem Renovascular hypertension I15.0 Active confirmed 770822961 Problem Other chronic pain G89.29 Active confirmed 8 8553939 Problem Dependence on supplemental oxygen Z99.81 Active confirmed 750571593637 Problem COPD (chronic obstructive pulmonary disease) jose g e management patient J44.9 Active confirmed 700965613 Problem 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 Active confirmed 12710974 Problem 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 Active confirmed 487904503 Problem Rheumatoid arthritis involvi ng multiple sites with positive rheumatoid factor M05.79 Active confirmed 226495053 ALLERGIES No Known Allergies ENCOUNTERS from 1940 to 2021-05-12 Encounter Location Date Provider Diagnosis [facility] [phone] [place] [address] Apr, Helio Zabala Diarrhea, unspecified type R19.7 ; S/P c oronary artery stent placement Z95.5 ; COPD (chronic obstructive pulmonary disease) case management patient J44.9 and Renovascular hypertension I15.0 IMMUNIZATIONS Vaccine Route Administration Date Status COVID-19 [...] Graduate Language: Question Answer Notes Languages spoken: Vincentian Alcohol Screening: Question Answer Notes Did you have a drink containing alcohol in the past year? No Points 0 Interpretation Negative Tobacco Use: Question Answer Notes Are you a: former smoker updated 05/11/2021 How long has it been since you last smoked? > 10 years [id number] REASON FOR REFERRAL No Information VITAL SIGNS Weight 144.12 lbs Apr, Height 61 in Apr, BMI 27.23 kg/m2 Apr, Heart Rate 70 /min Apr, Respiratory Rate 18 /min Apr, Temperature 98 degrees Fahrenheit Apr, Oximetry 95RA Apr, Blood pressure systolic 103 mm Hg Apr, Blood pressure diastolic 68 mm Hg Apr, MEDICATIONS Medication SIG (Take, Route, Frequency, Duration) Notes Start Da te End Date Status Aspirin 81 81 MG 1 tablet Orally Once a day Active metroNIDAZOLE 500 MG 1 tablet Orally Three times a day for 1 0 day(s) only as needed January, Not-Taking levETIRAcetam 500 MG 1 tablet Orally Twice a day Not-Taking Calcium 500 MG 1.5 tablet with meals Orally Twice a day Active Lisinopril 5 MG 1 tablet Orally Once a day at bedtime 05/09/212020 Active May Use 1 tab orally Daily Not-Ta thien Vitamin D3 50 MCG (1999) 1 capsule Orally Once a day Active Lyrica 150 MG 1 capsule Orally Twice a day, CODE D, MDD=2 05/09/21 Active Magnesium 250 MG 1 tablet with a meal Orally Once a day Active Chlorthalidone 25 MG 1/2 tablet in the morning with food Or ally Once a day 05/10/21 Active Famotidine 20 MG 1 tab Orally Twice a day Active HYDROcodone-Acetaminophen 10-325 MG 1 tablet as needed Orally qid prn pain, MDD=4 none lately 10 Apr, 2021 Active Potassium Chloride Kinjal ER 10 MEQ 1 tablet with food Orally Once a da y Active Metoprolol Tartrate 25 MG 1 tablet with food Orally qhs 05/09/21 Active Ambien 10 MG 1 tablet at bedtime as needed Orally Once a day Not-Taking Melatonin 5 MG 1 tablet at bedtime as needed with food Orally Once a day Not-Taking Calcium 1 tab Oral Not-Taking DULoxetine HCl 30 MG 1 capsule Orally Once a day Active Evolocumab 140 MG/ML 1 ml Subcutaneous every 14 days repatha Not-Taking DULoxetine HCl 30 MG 1 capsule Orally Once a day for 30 day(s) Not-Taking Docusate Sodium 100 MG 1 capsule as needed Orally twice a day Not-Taking levoFLOXacin 500 MG 1 tablet Orally Once a day for 10 day(s) Apr, Active Isosorbide Mononitrate ER 60 MG 1 tablet in the morning Oral ly Once a day 05/09/21 Active Polyethylene Glycol - as directed orally 17 GM daily Not-Taking Flagyl 500 MG 1 tablet Orally twice a day as needed 05/10/21 Active Nitroglycerin 0.4 MG 1 tab Sublingual as needed every 5 min x 3 doses july Breo Ellipta 100-25 MCG/INH 1 puff Inhalation Once a day Active Clopidogrel Bisulfate 75 MG 1 tablet Orally Once a day 05/03/21 Active Incruse Ellipta 62.5 MCG/INH 1 puff Inhalation Once a day Active Oxybutynin Chloride 5 MG 1 tablet Orally Twice a day Active Citalopram Hydrobromide 20 MG 1 tablet Orally Once a day Active PROCEDURES No Information RESULTS Component Value Reference Range Comprehensive Metabolic Profile (CMP) Reviewed date:05/12/2021 20:59:57 Interpretation:Normal Performing Lab:[facility], [facility] [address] [address] , ,[facility] GLUCOSE, FASTING 91 70-100 BLOOD UREA NITROGEN 23 7-18 CREATININE FOR GFR 0.68 0.55-1.30 GLOMERULAR FILTRATION RATE > 60.0 >39 SODIUM LEVEL 139 136-145 POTASSIUM SERUM 4.8 3.5-5.1 CHLORIDE LEVEL 105 98-107 CARBON DIOXIDE LEVEL 29 21-32 CALCIUM LEVEL 7.9 8.8-10.2 AST/SGOT 29 7-37 ALT/SGPT 34 12-78 ALKALINE PHOSPHATASE 139 45-117 BILIRUBIN,TOTAL 0.3 0.2-1.0 TOTAL PROTEIN 6.0 6.4-8.2 ALBUMIN 3.4 3.2-5.2 ALBUMIN/GLOBULIN RATIO 1.3 1.2-2.2 FREE T4 & TSH PANEL Reviewed date:05/12/2021 20:59:57 Interpretation:Normal Performing Lab:[facility] [address] [place] [address] , ,[address] [address] THYROID STIMULATING HORMONE 2.400 0.358-3.740 FREE T4 0.93 0.76-1.46 MAGNESIUM LEVEL Reviewed date:05/12/2021 20:59:57 Interpretation:Normal Performing Lab:[facility] [address] [place] [address] , ,[place] [address] MAGNESIUM LEVEL 1.9 1.8-2.4 GASTROINTESTINAL GI PANEL (GIPANEL) Reviewed date:05/12/2021 20:59:57 Interpretation:Abnormal Performing Lab:[facility] [address] [place] [address] , ,[facility] GASTROINTESTINAL (GI) PANEL This Gastrointestinal PCR Panel detects the following bacteria, GASTROINTESTINAL (GI) PANEL parasites and viruses: Cam pylobacter (jejuni, coli and upsaliensis), GASTROINTESTINAL (GI) PANEL Clostridium difficile (tox in A/B), Plesiomonas shigelloides, GASTROINTESTINAL (GI) PANEL Salmonella, Yersinia enter ocolitica, Vibrio (parahaemolyticus, GASTROINTESTINAL (GI) PANEL vulnificus and cholerae), Vibrio clolerae, Enteroaggregative GASTROINTESTINAL (GI) PANEL E. coli (EAEC), Enteropath ogenis E. coli (EPEC), Enterotoxigenic GASTROINTESTINAL (GI) PANEL E. coli (ETEC) it/st, Shig a-like producing E. coli (STEC) stx1/stc2, GASTROINTESTINAL (GI) PANEL E.coli O157, Shigella/Ente roinvasive E. coli (EIEC), Cryptosporidium, GASTROINTESTINAL (GI) PANEL Cyclospora cayetanensis, E ntamoeba histolytica, Giardia lamblia, GASTROINTESTINAL (GI) PANEL Adenovirus F 40/41, Astrov irus, Norovirus GI/GII, Rotavirus A and GASTROINTESTINAL (GI) PANEL Sapovirus (I, II, IV, V). GASTROINTESTINAL (GI) PANEL One negative specimen does not rule out the possibility of a GASTROINTESTINAL (GI) PANEL parasitic infection. GASTROINTESTINAL (GI) PANEL GASTROINTESTINAL (GI) PANEL POSITIVE by MULTIPLEXED NUCLEIC ACID PCR GASTROINTESTINAL (GI) PANEL GASTROINTESTINAL (GI) PANEL ORGANISM 1: ENTEROPATHOGENIC E.C LEXI GASTROINTESTINAL (GI) PANEL GASTROINTESTINAL (GI) PANEL FO RMED stool. GASTROINTESTINAL (GI) PANEL Enteropathogenic E.coli (EPEC) i nfections can range GASTROINTESTINAL (GI) PANEL from asymptomatic to acute non bloody GASTROINTESTINAL (GI) PANEL diarrhea with vomiting and fever . EPEC outbreaks GASTROINTESTINAL (GI) PANEL appear to peak in summer and early fall. GASTROINTESTINAL (GI) PANEL GASTROINTESTINAL (GI) PANEL GASTROINTESTINAL (GI) PANEL ORGANISM 1: ENTEROPATHOGENIC E.C LEXI CBC with Auto Differential Reviewed date:05/12/2021 20:59:57 Interpretation:Normal Performing Lab:[facility], [facility] [address] [id number] , ,[place] [address] WHITE BLOOD COUNT 7.1 4.0-10.0 RED BLOOD COUNT 4.36 4.00-5.40 HEMOGLOBIN 12.5 12.0-15.5 HEMATOCRIT 39.4 36.0-47.0 MEAN CORPUSCULAR VOLUME 90.4 80.0-96.0 MEAN CORPUSCULAR HEMOGLOBIN 28.7 27.0-33.0 MEAN CORPUSCULAR HGB CONC 31.7 32.0-36.5 RED CELL DISTRIBUTION WIDTH 14.8 11.5-14.5 PLATELET COUNT, AUTOMATED 250 150-450 NEUTROPHILS % 66.6 36.0-66.0 LYMPH % 18.5 24.0-44.0 MONO % 12.3 2.0-8.0 EOS % 1.4 0.0-3.0 BASO % 0.6 0.0-1.0 IMMATURE GRANULOCYTE % 0.6 0-3.0 NUCLEATED RED BLOOD CELL % 0.0 0-0 NEUTROPHILS # 4.7 1.5-8.5 LYMPH # 1.3 1.5-5.0 MONO # 0.9 0.0-0.8 EOS # 0.1 0.0-0.5 BASO # 0.0 0.0-0.2 REASON FOR VISIT diarrhea MEDICAL (GENERAL) HISTORY Type Description Date Medical History Basal cell carcinoma, face Medical History copd Medical History s/p pacemaker Medical History renal artery stent Medical History Macular degeneration both eyes Medical History diverticulitis Medical History [place] Surgical History heart catheterization Surgical History coronary artery stent 07/2020 Surgical History ventral hernia repair Surgical History tubal ligation Surgical History elbow surgery Surgical History bypass Surgical History appendectomy 02/2019 Surgical History pacemaker 07/2020 Surgical History Stent none also 07/2020 Hospitalization History fractured foot 2017 Hospitalization History stroke [address] [facility] 07/2020 Goals Section No Information Health Concerns No Information MEDICAL EQUIPMENT No Information MENTAL STATUS No Information FUNCTIONAL STATUS No Information ASSESSMENTS Encounter Date Diagnosis Assessment Notes Treatment Notes Treatm ent Clinical Notes Apr, Diarrhea, unspecified type (ICD-10 - R19.7) Do not start levofloxacin until the stool sample has been collected Apr, S/P coronary artery stent placement (ICD-10 - Z9 5.5) Apr, COPD (chronic obstructive pu lmonary disease) case management patient (ICD-10 - J44.9) Apr, Renovascular hypertension (ICD-10 - I15.0) PLAN OF TREATMENT Medication Medication Name Sig Start Date Stop Date Oxybutynin Chloride 5 MG 1 tablet Orally Twice a day Citalopram Hydrobromide 20 MG 1 tablet Orally Once a day Incruse Ellipta 62.5 MCG/INH 1 puff Inhalation Once a day Clopidogrel Bisulfate 75 MG 1 tablet Orally Once a day Lyrica 150 MG 1 capsule Orally Twice a day, CODE D, MDD=2 HYDROcodone-Acetaminophen 10-325 MG 1 tablet as needed Orally qid prn pain, MDD=4 10 Apr, 2021 Aspirin 81 81 MG 1 tablet Orally Once a day Vitamin D3 50 MCG (1999) 1 capsule Orally Once a day Potassium Chloride Kinjal ER 10 MEQ 1 tablet with food Orally Once a day Chlorthalidone 25 MG 1/2 tablet in the morning with food Orally Once a day Nitroglycerin 0.4 MG 1 tab Sublingual as needed every 5 min x 3 doses Breo Ellipta 100-25 MCG/INH 1 puff Inhalation Once a day Isosorbide Mononitrate ER 60 MG 1 tablet in the morning Orally O nce a day Flagyl 500 MG 1 tablet Orally twice a day as needed Metoprolol Tartrate 25 MG 1 tablet with food Orally qhs Famotidine 20 MG 1 tab Orally Twice a day Lisinopril 5 MG 1 tablet Orally Once a day at bedtime Sep, 21 levoFLOXacin 500 MG 1 tablet Orally Once a day for 10 day(s) Apr, DULoxetine HCl 30 MG 1 capsule Orally Once a day Magnesium 250 MG 1 tablet with a meal Orally Once a day Calcium 500 MG 1.5 tablet with meals Orally Twice a day Treatment Notes Assessment Notes Clinical Notes Diarrhea, unspecified type Do not start levofloxacin u ntil the stool sample has been collected Next Appt Details 10 days. Reason: Provider Name:Helio Zabala, 2021-05-21 01 :30:00 PM, [address] [address] , , [place], [address], Provider Name:Helio Zabala, 2021-07-01 01 :00:00 PM, [facility] [employer] , , [place], [address], Provider Name:Joy Samuels, 11:45:00 AM, [address] [place] [address], , [place], [address], Insurance Providers Payer Name Payer Address Payer Phone Insured Name Patient Relati onship to Insured Coverage Start Date Coverage End Date MEDICARE COMPLETE UNITED [employer] [address] [address] [facility] [id number] TIANNA THORNTON
--- OUTSIDE RECORDS SUMMARY | 2021-07-14 15:59 | CCD ---
Author Author [facility] Organization [facility] Address Unknown Phone Unavailable Care Team Providers Care Documentation Coordinator Name Role Phone Helio Zabala Unavailable PROBLEMS Type Condition ICD9-CM Code [id number] Code Onset Dates Condition S tatus W/U Status Risk SNOMED Code Notes Problem Actinic keratosis L57.0 Active confirmed 20 2134955 Problem Lentigines L81.4 Active confirmed 613627063 Problem Seborrheic keratoses L82.1 Active confirmed 412813968 Problem Neuralgia M79.2 Active confirmed 56315822 Problem History of nonmelanoma skin cancer Z85.828 Activ e confirmed 734977558 Problem 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 Active confirmed 346738679 Problem Basal cell carcinoma of scalp C44.41 Active confirm ed 173296693 Problem S/P coronary artery stent placement Z95.5 Acti ve confirmed 740148167 Problem History of diverticulitis Z87.19 Active confirmed 039191629850960 Problem History of stent insertion of renal artery Z98.890 Active confirmed 289200851 Problem 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 Active confirmed 314129423 Problem Renovascular hypertension I15.0 Active confirmed 926080720 Problem Other chronic pain G89.29 Active confirmed 8 6460465 Problem Dependence on supplemental oxygen Z99.81 Active confirmed 896284660987 Problem COPD (chronic obstructive pulmonary disease) jose g e management patient J44.9 Active confirmed 833261128 Problem 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 Active confirmed 34892432 Problem 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 Active confirmed 847500244 Problem Rheumatoid arthritis involvi ng multiple sites with positive rheumatoid factor M05.79 Active confirmed 356704681 ALLERGIES No Known Allergies ENCOUNTERS from 1940 to 2021-05-11 Encounter Location Date Provider Diagnosis [facility] Nacho HOYT [phone] [place] [address] Apr, Helio Zabala IMMUNIZATIONS Vaccine Route Administration Date Status COVID-19 [...] Graduate Language: Question Answer Notes Languages spoken: Armenian Alcohol Screening: Question Answer Notes Did you have a drink containing alcohol in the past year? No Points 0 Interpretation Negative Tobacco Use: Question Answer Notes Are you a: former smoker updated 12/30/2020 How long has it been since you last smoked? > 10 years [id number] REASON FOR REFERRAL No Information VITAL SIGNS No information MEDICATIONS Medication SIG (Take, Route, Frequency, Duration) Notes Start Da te End Date Status Breo Ellipta 100-25 MCG/INH 1 puff Inhalation Once a day Active Famotidine 20 MG 1 tab Orally Twice a day for 30 Days Active Incruse Ellipta 62.5 MCG/INH 1 puff Inhalation Once a day Active Lyrica 150 MG 1 capsule Orally Twice a day, CODE D, MDD=2 for 90 day(s) 05/09/21 Active DULoxetine HCl 30 MG 1 capsule Orally Once a day for 30 day(s) Not-Taking Calcium 500 MG 1.5 tablet with meals Orally Twice a day Active Citalopram Hydrobromide 20 MG 1 tablet Orally Once a day Active DULoxetine HCl 30 MG 1 capsule Orally Once a day for 30 day(s) Active Flagyl 500 MG 1 tablet Orally twice a day as needed for 10 day(s) 04/25 03/15 Active metroNIDAZOLE 500 MG 1 tablet Orally Three times a day for 1 0 day(s) only as needed January, Not-Taking May Use 1 tab orally Daily Not-Ta thien HYDROcodone-Acetaminophen 10-325 MG 1 tablet as needed Orally qid prn pain, MDD=4 for 7 days none lately Apr, Active Calcium 1 tab Oral Not-Taking Nitroglycerin 0.4 MG 1 tab Sublingual as needed every 5 min x 3 doses july Active Oxybutynin Chloride 5 MG 1 tablet Orally Twice a day Active Polyethylene Glycol - as directed orally 17 GM daily Not-Taking Magnesium 250 MG 1 tablet with a meal Orally Once a day Active Clopidogrel Bisulfate 75 MG 1 tablet Orally Once a day 05/03/21 Active Metoprolol Tartrate 25 MG 1 tablet with food Orally qhs 05/09/21 Active Potassium Chloride Kinjal ER 10 MEQ 1 tablet with food O rally Once a day for 90 day(s) Active Vitamin D3 50 MCG (1999) 1 capsule Orally Once a day Active Chlorthalidone 25 MG 1/2 tablet in the morning w ith food Orally Once a day for 90 day(s) 05/10/21 Active Ambien 10 MG 1 tablet at bedtime as needed Orally Once a day Not-Taking Lisinopril 5 MG 1 tablet Orally Once a day at bedtime 05/09/21 J an, 2020 Active levETIRAcetam 500 MG 1 tablet Orally Twice a day Not-Taking Isosorbide Mononitrate ER 60 MG 1 tablet in the mornin g Orally Once a day for 90 day(s) 05/09/21 Active Evolocumab 140 MG/ML 1 ml Subcutaneous every 14 days repatha Not-Taking Docusate Sodium 100 MG 1 capsule as needed Orally twice a day Not-Taking Melatonin 5 MG 1 tablet at bedtime as needed with food Orally Once a day Not-Taking Aspirin 81 81 MG 1 tablet Orally Once a day Active PROCEDURES No Information RESULTS No Results REASON FOR VISIT call back needed MEDICAL (GENERAL) HISTORY Type Description Date Medical History Basal cell carcinoma, face Medical History copd Medical History s/p pacemaker Medical History renal artery stent Medical History Macular degeneration both eyes Medical History diverticulitis Medical History IN Surgical History heart catheterization Surgical History coronary artery stent 07/2020 Surgical History ventral hernia repair Surgical History tubal ligation Surgical History elbow surgery Surgical History bypass Surgical History appendectomy 02/2019 Surgical History pacemaker 07/2020 Surgical History Stent none also 07/2020 Hospitalization History fractured foot 2017 Hospitalization History stroke [address] [facility] 07/2020 Goals Section No Information Health Concerns No Information MEDICAL EQUIPMENT No Information MENTAL STATUS No Information FUNCTIONAL STATUS No Information ASSESSMENTS No Information PLAN OF TREATMENT Next Appt Details Provider Name:Helio Zabala, 2021-05-11 01 :30:00 PM, [address], , [place], [address], Provider Name:Helio Zabala, 2021-07-01 01 :00:00 PM, [address], , [place], [address], Provider Name:Joy Samuels, 11:45:00 AM, [address] [place] [address], , [place], [address], Insurance Providers Payer Name Payer Address Payer Phone Insured Name Patient Relati onship to Insured Coverage Start Date Coverage End Date MEDICARE COMPLETE UNITED HE[employer]CARE [address] [address] [facility] [id number] TIANNA THORNTON self
--- OUTSIDE RECORDS SUMMARY | 2021-07-14 15:59 | CCD ---
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 Role Phone Helio Zabala Unavailable PROBLEMS Type Condition ICD9-CM Code [id number] Code Onset Dates Condition S tatus W/U Status Risk SNOMED Code Notes Problem Seborrheic keratoses L82.1 Active confirmed 712103701 Problem Actinic keratosis L57.0 Active confirmed 20 6946950 Problem History of nonmelanoma skin cancer Z85.828 Activ e confirmed 093451749 Problem Lentigines L81.4 Active confirmed 917073139 Problem Basal cell carcinoma of scalp C44.41 Active confirm ed 206798830 Problem Neuralgia M79.2 Active confirmed 26762207 Problem Dependence on supplemental oxygen Z99.81 Active confirmed 274014573527 Problem 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 Active confirmed 361379486 Problem History of diverticulitis Z87.19 Active confirmed 957098942540285 Problem COPD (chronic obstructive pulmonary disease) jose g e management patient J44.9 Active confirmed 072970707 Problem History of stent insertion of renal artery Z98.890 Active confirmed 821017657 Problem Other chronic pain G89.29 Active confirmed 8 7859086 Problem S/P coronary artery stent placement Z95.5 Acti ve confirmed 528093276 Problem Primary hypertension I10 Active confirmed 39480852 Problem Renovascular hypertension I15.0 Active confirmed 082912132 Problem 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 Active confirmed 263773350 Problem 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 Active confirmed 70950130 Problem Rheumatoid arthritis involvi ng multiple sites with positive rheumatoid factor M05.79 Active confirmed 388717247 Problem 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 Active confirmed 021030437 ALLERGIES No Known Allergies ENCOUNTERS from 1940 to 2021-05-28 Encounter Location Date Provider Diagnosis [facility] Nacho HOYT [phone] [place] [phone] Apr, Helio Zabala COPD (chronic obstructive pulmonary dise ase) case management patient J44.9 ; S/P coronary artery stent placement Z95.5 and Primary hypertension I10 IMMUNIZATIONS Vaccine Route Administration Date Status COVID-19 [...] Graduate Language: Question Answer Notes Languages spoken: Mohawk Alcohol Screening: Question Answer Notes Did you have a drink containing alcohol in the past year? No Points 0 Interpretation Negative Tobacco Use: Question Answer Notes Are you a: former smoker updated 05/25/2021 How long has it been since you last smoked? > 10 years [id number] REASON FOR REFERRAL No Information VITAL SIGNS Weight 148 lbs Apr, Height 61 in Apr, BMI 27.96 kg/m2 Apr, Heart Rate 66 /min Apr, Respiratory Rate 18 /min Apr, Temperature 98 degrees Fahrenheit Apr, Oximetry 94RA Apr, Blood pressure systolic 156 mm Hg Apr, Blood pressure diastolic 80 mm Hg Apr, MEDICATIONS Medication SIG (Take, Route, Frequency, Duration) Notes Start Da te End Date Status Docusate Sodium 100 MG 1 capsule as needed Orally twice a day Not-Taking Metoprolol Tartrate 25 MG 1 tablet with food Orally qhs 05/09/21 Active Incruse Ellipta 62.5 MCG/INH 1 puff Inhalation Once a day Active Nitroglycerin 0.4 MG 1 tab Sublingual as needed every 5 min x 3 doses july Active HYDROcodone-Acetaminophen 10-325 MG 1 tablet as needed Orally qid prn pain, MDD=4 none lately Apr, Active Evolocumab 140 MG/ML 1 ml Subcutaneous every 14 days repatha Not-Taking Aspirin 81 81 MG 1 tablet Orally Once a day Active Potassium Chloride Kinjal ER 10 MEQ 1 tablet with food Orally Once a da y Active Citalopram Hydrobromide 20 MG 1 tablet Orally Once a day Active Chlorthalidone 25 MG 1/2 tablet in the morning with food Or ally Once a day 05/10/21 Active Isosorbide Mononitrate ER 60 MG 1 tablet in the morning Oral ly Once a day 05/09/21 Active Oxybutynin Chloride 5 MG 1 tablet [...] Once a day at bedtime 05/09/21 J 2020 Active Breo Ellipta 100-25 MCG/INH 1 puff Inhalation Once a day Active Lyrica 150 MG 1 capsule Orally Twice a day, CODE D, MDD=2 05/09/21 Active Ambien 10 MG 1 tablet at bedtime as needed Orally Once a day Not-Taking Melatonin 5 MG 1 tablet at bedtime as needed with food Orally Once a day Not-Taking metroNIDAZOLE 500 MG 1 tablet Orally Three [...] Information RESULTS No Results REASON FOR VISIT [facility] f/u 05/20 brochitis MEDICAL (GENERAL) HISTORY Type Description Date Medical History Basal cell carcinoma, face Medical History copd Medical History s/p pacemaker Medical History renal artery stent Medical History Macular degeneration both eyes Medical History diverticulitis Medical History [place] Surgical History heart catheterization Surgical History coronary artery stent 07/2020 Surgical History ventral hernia repair Surgical History tubal ligation Surgical History elbow surgery Surgical History bypass Surgical History appendectomy 02/2019 Surgical History pacemaker 07/2020 Surgical History Stent none also 07/2020 Hospitalization History fractured foot 2017 Hospitalization History stroke [address] [facility] 07/2020 Goals Section No Information Health Concerns No Information MEDICAL EQUIPMENT No Information MENTAL STATUS No Information FUNCTIONAL STATUS No Information ASSESSMENTS Encounter Date Diagnosis Assessment Notes Treatment Notes Treatm ent Clinical Notes Apr, COPD (chronic obstructive pu lmonary disease) case management patient (ICD-10 - J44.9) Apr, S/P coronary artery stent placement (ICD-10 - Z9 5.5) Apr, Primary hypertension (ICD-10 - I10) PLAN OF TREATMENT Medication Medication Name Sig Start Date Stop Date Vitamin D3 50 MCG (1999) 1 capsule Orally Once a day Magnesium 250 MG 1 tablet with a meal Orally Once a day Calcium 500 MG 1.5 tablet with meals Orally Twice a day DULoxetine HCl 30 MG 1 capsule Orally Once a day Potassium Chloride Kinjal ER 10 MEQ 1 tablet with food Orally Once a day Oxybutynin Chloride 5 MG 1 tablet Orally Twice a day Incruse Ellipta 62.5 MCG/INH 1 puff Inhalation Once a day Aspirin 81 81 MG [...] Once a day at bedtime Sep, 21 Famotidine 20 MG 1 tab Orally Twice a day Isosorbide Mononitrate ER 60 MG 1 tablet in the morning Orally O nce a day Nitroglycerin 0.4 MG 1 tab Sublingual as needed every 5 min x 3 doses Breo Ellipta 100-25 MCG/INH 1 puff Inhalation Once a day Citalopram Hydrobromide 20 MG 1 tablet Orally Once a day Metoprolol Tartrate 25 MG 1 tablet with food Orally qhs Next Appt Details as scheduled Reason: Provider Name:Helio Zabala, 2021-07-01 01 :00:00 PM, [address] [place] [address], , [place], [address], Provider Name:Joy Samuels, 11:45:00 AM, [address] [place] [address], , [place], [address], Insurance Providers Payer Name Payer Address Payer Phone Insured Name Patient Relati onship to Insured Coverage Start Date Coverage End Date MEDICARE COMPLETE [facility] [address] [address] [facility] [phone] TIANNA THORNTON self
--- OUTSIDE RECORDS SUMMARY | 2021-07-14 15:59 | CCD ---
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 Name Role Phone Lyndon Schwartz Unavailable PROBLEMS Type Condition ICD9-CM Code NYD83-RU Code Onset Dates Condition S tatus W/U Status Risk SNOMED Code Notes Problem Actinic keratosis L57.0 Active confirmed 20 5952765 Problem Lentigines L81.4 Active confirmed 195190411 Problem Seborrheic keratoses L82.1 Active confirmed 891647484 Problem Neuralgia M79.2 Active confirmed 13894219 Problem History of nonmelanoma skin cancer Z85.828 Activ e confirmed 194313008 Problem 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 Active confirmed 258484938 Problem Basal cell carcinoma of scalp C44.41 Active confirm ed 846435298 Problem S/P coronary artery stent placement Z95.5 Acti ve confirmed 907403176 Problem History of diverticulitis Z87.19 Active confirmed 153779005318658 Problem History of stent insertion of renal artery Z98.890 Active confirmed 816466205 Problem 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 Active confirmed 526626570 Problem Renovascular hypertension I15.0 Active confirmed 544615956 Problem Other chronic pain G89.29 Active confirmed 8 8965711 Problem Dependence on supplemental oxygen Z99.81 Active confirmed 469262848516 Problem COPD (chronic obstructive pulmonary disease) jose g e management patient J44.9 Active confirmed 960053303 Problem 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 Active confirmed 03270023 Problem 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 Active confirmed 833848552 Problem Rheumatoid arthritis involvi ng multiple sites with positive rheumatoid factor M05.79 Active confirmed 073794864 ALLERGIES No Known Allergies ENCOUNTERS from 1940 to 2021-05-23 Encounter Location Date Provider Diagnosis [facility] [address] [facility] 3[address] [phone] [place] [address] Apr, Lyndon Schwartz Spinal stenosis, lum bar region without neurogenic claudication M48.061 and Lumbar disc disease with radiculopathy M51.16 IMMUNIZATIONS Vaccine Route Administration Date Status COVID-19 [...] Graduate Language: Question Answer Notes Languages spoken: Citizen Of [place] Alcohol Screening: Question Answer Notes Did you have a drink containing alcohol in the past year? No Points 0 Interpretation Negative Tobacco Use: Question Answer Notes Are you a: former smoker updated 05/11/2021 How long has it been since you last smoked? > 10 years [id number] REASON FOR REFERRAL No Information VITAL SIGNS Weight 145 lbs Apr, Weight-kg 65.77 kg Apr, Height 61 in Apr, BMI 27.39 kg/m2 Apr, Heart Rate 60 /min Apr, Respiratory Rate 18 /min Apr, Temperature 97.3 degrees Fahrenheit Apr, Oximetry 92% Apr, Blood pressure systolic 123 mm Hg Apr, Blood pressure diastolic 58 mm Hg Apr, MEDICATIONS Medication SIG (Take, [...] day at bedtime 05/09/21 J 2020 Active May Use 1 tab orally Daily Not-Ta Vitamin D3 50 MCG (2000 UT) 1 capsule Orally Once a day [...] Information RESULTS No Results REASON FOR VISIT Low back and leg pain MEDICAL (GENERAL) HISTORY Type Description Date Medical History Basal cell carcinoma, face Medical History copd Medical History s/p pacemaker Medical History renal artery stent Medical History Macular degeneration both eyes Medical History diverticulitis Medical History [place] Surgical History heart catheterization Surgical History coronary artery stent 07/2020 Surgical History ventral hernia repair Surgical History tubal ligation Surgical History elbow surgery Surgical History bypass Surgical History appendectomy 02/2019 Surgical History pacemaker 07/2020 Surgical History Stent none also 07/2020 Hospitalization History fractured foot 2017 Hospitalization History stroke [address] [place] 07/2020 Goals Section No Information Health Concerns No Information MEDICAL EQUIPMENT No Information MENTAL STATUS No Information FUNCTIONAL STATUS No Information ASSESSMENTS Encounter Date Diagnosis Assessment Notes Treatment Notes Treatm ent Clinical Notes Apr, Spinal stenosis, lumbar remberto on without neurogenic claudication (ICD-10 - M48.061) I discussed alternatives with Ms. Thornton. I will order x-rays AP and lateral on flexion and extension to check the stability of the spine. After the gastric problems are resolved I will do a transforaminal injection. I am requesting a right transforaminal at L3-L4, L4-L5, L5-S1. I will make a final decision at the moment of the injection but plan to inject only 2 levels. She may be a candidate for MILD/Vertiflex. We will see her/book her for the injection after the gastric problems are resolve. The patient reports understanding and agrees with the plan. I, Cass Zuluaga, documented the above information acting as a scribe for Dr. Schwartz. I have reviewed the above document, written by Cass Zuluaga, medical interpreter, and I verify that it is accurate. Apr, Lumbar disc disease with radiculopathy (ICD-10 - M51.16) Apr, Other 05/10/21 9316 PRE -PROCEDURE INSTRUCTIONS GIVEN AND REVIEWED WITH PATIENT. PATIENT VERBALIZED AN UNDERSTANDING. Steven DIAZ RN PLAN OF TREATMENT Medication Medication Name Sig [...] Orally Once a day at bedtime Sep, levoFLOXacin 500 MG 1 tablet Orally Once a day for 10 day(s) Apr, DULoxetine HCl 30 MG 1 capsule Orally Once a day Magnesium 250 MG 1 tablet with a meal Orally Once a day Calcium 500 MG 1.5 tablet with meals Orally Twice a day Treatment Notes Assessment Notes Clinical Notes Spinal stenosis, lumbar region without neurogenic claudicati on I discussed alternatives with Ms. Thornton. I will order x-rays AP and lateral on flexion and extension to check the stability of the spine. After the gastric problems are resolved I will do a transforaminal injection. I am requesting a right transforaminal at L3-L4, L4-L5, L5-S1. I will make a final decision at the moment of the injection but plan to inject only 2 levels. She may be a candidate for MILD/Vertiflex. We will see her/book her for the injection after the gastric problems are resolve. The patient reports understanding and agrees with the plan. I, Cass Zuluaga, documented the above information acting as a scribe for Dr. Schwartz. I have reviewed the above document, written by Cass Zuluaga, medical interpreter, and I verify that it is accurate. Treatment Notes Test Name Order Date [facility] Spine, Lumbosacral w/flex-ext 2021-05-10 Next Appt Details Request auth for right transforaminal ep idural steroid L3-L4, L4-L5, L5-S1 ( do not book until GI problems resolved) Reason:Request auth for right transforaminal epidural steroid L3-L4, L4-L5, L5-S1 ( do not book until GI problems resolved) Provider Name:Helio Zabala, 2021-05-25 10 :30:00 AM, Zara HOYT , , [place], [address], Provider Name:Helio Zabala, 2021-07-01 01 :00:00 PM, [address] , , [place], [address], Provider Name:Joy Samuels, 11:45:00 AM, [address] [place] [address], , [place], [address], Follow Up:Request auth for right transforaminal epidural steroid L3-L4, L4-L5, L5-S1 ( do not book until GI problems resolved)Request auth for right transforaminal epidural steroid L3-L4, L4-L5, L5-S1 ( do not book until GI problems resolved) Insurance Providers Payer Name Payer Address Payer Phone Insured Name Patient Relati onship to Insured Coverage Start Date Coverage End Date MEDICARE COMPLETE [facility] [address] [address] [facility] [id number] TIANNA THORNTON self
--- OUTSIDE RECORDS SUMMARY | 2021-07-14 15:59 | CCD ---
Author Author [facility] Syst ems Organization [facility] Syst ems Address Unknown Phone Unavailable Care Team Providers Care Oracle Developer Name Role Phone Helio Zabala Unavailable PROBLEMS Type Condition ICD9-CM Code JKA63-OH Code Onset Dates Condition S tatus W/U Status Risk SNOMED Code Notes Problem Seborrheic keratoses L82.1 Active confirmed 595589852 Problem Actinic keratosis L57.0 Active confirmed 20 1056048 Problem History of nonmelanoma skin cancer Z85.828 Activ e confirmed 100148393 Problem Lentigines L81.4 Active confirmed 199272901 Problem Basal cell carcinoma of scalp C44.41 Active confirm ed 525422238 Problem Neuralgia M79.2 Active confirmed 61248573 Problem Dependence on supplemental oxygen Z99.81 Active confirmed 757271915563 Problem 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 Active confirmed 827390844 Problem History of diverticulitis Z87.19 Active confirmed 960690427749205 Problem COPD (chronic obstructive pulmonary disease) jose g e management patient J44.9 Active confirmed 705337132 Problem History of stent insertion of renal artery Z98.890 Active confirmed 269606767 Problem Other chronic pain G89.29 Active confirmed 8 0361680 Problem S/P coronary artery stent placement Z95.5 Acti ve confirmed 742856398 Problem Primary hypertension I10 Active confirmed 57711792 Problem Renovascular hypertension I15.0 Active confirmed 752623701 Problem 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 Active confirmed 727681531 Problem 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 5 IMMUNIZATIONS Vaccine Route Administration Date Status COVID-19 [...] Graduate Language: Question Answer Notes Languages spoken: Mongolian Alcohol Screening: Question Answer Notes Did you have a drink containing alcohol in the past year? No Points 0 Interpretation Negative Tobacco Use: Question Answer Notes Are you a: former smoker updated 05/25/2021 How long has it been since you last smoked? > 10 years [id number] REASON FOR REFERRAL No Information VITAL SIGNS No information MEDICATIONS Medication SIG (Take, Route, Frequency, Duration) Notes Start Da te End Date Status Evolocumab 140 MG/ML 1 ml Subcutaneous every 14 days repatha Not-Taking Citalopram Hydrobromide 20 MG 1 tablet Orally Once a day Active Potassium Chloride Kinjal ER 10 MEQ 1 tablet with food Orally Once a da y Active Metoprolol Tartrate 25 MG 1 tablet with food Orally qhs 05/09/21 Active HYDROcodone-Acetaminophen 10-325 MG 1 tablet as needed Orally qid prn pain, MDD=4 none lately Apr, Active Melatonin 5 MG 1 tablet at bedtime as needed with food Orally Once a day Not-Taking Aspirin 81 81 MG 1 tablet Orally Once a day Active Isosorbide Mononitrate ER 60 MG 1 tablet in the morning Oral ly Once a day 05/09/21 Active Clopidogrel Bisulfate 75 MG 1 tablet Orally Once a day for 90 day(s) 05/03/21 Active Chlorthalidone 25 MG 1/2 tablet in the morning with food Or ally Once a day 05/10/21 Active Incruse Ellipta 62.5 MCG/INH INHALE 1 PUFF BY MOUTH ONCE A DAY for 90 Active Oxybutynin Chloride 5 MG 1 tablet Orally Twice a day Active Flagyl 500 MG 1 tablet Orally twice a day as needed 05/10/21 Not-Taking Ambien 10 MG 1 tablet at bedtime as needed Orally Once a day Not-Taking Famotidine 20 MG 1 tab Orally Twice a day Active Calcium 500 MG 1.5 tablet with meals Orally Twice a day Active May Use 1 tab orally Daily Not-Ta thien metroNIDAZOLE 500 MG 1 tablet Orally Three times a day for 1 0 day(s) only as needed January, Not-Taking Lyrica 150 MG 1 capsule Orally Twice a day, CODE D, MDD=2 05/09/21 Active Lisinopril 5 MG 1 tablet Orally Once a day at bedtime 05/09/21 J 2020 Active Breo Ellipta 100-25 MCG/INH 1 puff Inhalation Once a day Active Nitroglycerin 0.4 MG 1 tab Sublingual as needed every 5 min x 3 doses july Active levoFLOXacin 500 MG 1 tablet Orally Once a day for 10 day(s) Apr, Not-Taking Calcium 1 tab Oral Not-Taking Docusate Sodium 100 MG 1 capsule as needed Orally twice a day Not-Taking levETIRAcetam 500 MG 1 tablet Orally [...] Information RESULTS No Results REASON FOR VISIT med refill MEDICAL (GENERAL) HISTORY Type Description Date Medical History Basal cell carcinoma, face Medical History copd Medical History s/p pacemaker Medical History renal artery stent Medical History Macular degeneration both eyes Medical History diverticulitis Medical History [place] Surgical History heart catheterization Surgical History coronary artery stent 07/2020 Surgical History ventral hernia repair Surgical History tubal ligation Surgical History elbow surgery Surgical History bypass Surgical History appendectomy 02/2019 Surgical History pacemaker 07/2020 Surgical History Stent none also 07/2020 Hospitalization History fractured foot 2017 Hospitalization History stroke [address] [place] [place] 07/2020 Goals Section No Information Health Concerns No Information MEDICAL EQUIPMENT No Information MENTAL STATUS No Information FUNCTIONAL STATUS No Information ASSESSMENTS Encounter Date Diagnosis Assessment Notes Treatment Notes Treatm ent Clinical Notes Jun, S/P coronary artery stent placement (ICD-10 - Z9 5.5) PLAN OF TREATMENT Medication Medication Name Sig Start Date Stop Date Vitamin D3 50 MCG (1999) 1 capsule Orally Once a day Magnesium 250 MG 1 tablet with a meal Orally Once a day Calcium 500 MG 1.5 tablet with meals Orally Twice a day DULoxetine HCl 30 MG 1 capsule Orally Once a day Incruse Ellipta 62.5 MCG/INH INHALE 1 PUFF BY MOUTH ONCE A DAY f or 90 Oxybutynin Chloride 5 MG 1 tablet Orally Twice a day Isosorbide Mononitrate ER 60 MG 1 tablet in the morning Orally O nce a day Aspirin 81 81 MG 1 tablet Orally Once a day HYDROcodone-Acetaminophen 10-325 MG 1 tablet as needed Orally qid prn pain, MDD=4 10 Apr, 2021 Chlorthalidone 25 MG 1/2 tablet in the morning with food Orally Once a day Famotidine 20 MG 1 tab Orally Twice a day Lyrica 150 MG 1 capsule Orally Twice a day, CODE D, MDD=2 Potassium Chloride Kinjal ER 10 MEQ 1 tablet with food Orally Once a day Lisinopril 5 MG 1 tablet Orally Once a day at bedtime Sep, Breo Ellipta 100-25 MCG/INH 1 puff Inhalation Once a day Metoprolol Tartrate 25 MG 1 tablet with food Orally qhs Nitroglycerin 0.4 MG 1 tab Sublingual as needed every 5 min x 3 doses Clopidogrel Bisulfate 75 MG 1 tablet Orally Once a day for 90 da y(s) Citalopram Hydrobromide 20 MG 1 tablet Orally Once a day Next Appt Details Provider Name:Helio Zabala, 2021-08-24 03 :30:00 PM, [address] [place] [address], , [place], [address], Provider Name:Joy Samuels, 11:45:00 AM, [address] [facility], , [place], [address], Provider Name:Lyndon Schwartz, 2021-09-02 02:30:00 PM, [address], , [place], [address], Provider Name:Lyndon Schwartz, 2021-09-06 01:45:00 PM, [address], , [place], [address], Insurance Providers Payer Name Payer Address Payer Phone Insured Name Patient Relati onship to Insured Coverage Start Date Coverage End Date MEDICARE COMPLETE [employer] [address] [address] [facility] [id number] TIANNA THORNTON self
--- OUTSIDE RECORDS SUMMARY | 2021-07-14 15:59 | CCD ---
Author Author [facility] Organization [facility] Address Unknown Phone Unavailable Care Team Providers Care Fire Controlman Name Role Phone Helio Zabala Unavailable PROBLEMS Type Condition ICD9-CM Code [id number] Code Onset Dates Condition S tatus W/U Status Risk SNOMED Code Notes Problem Seborrheic keratoses L82.1 Active confirmed 689407150 Problem Actinic keratosis L57.0 Active confirmed 20 6051534 Problem History of nonmelanoma skin cancer Z85.828 Activ e confirmed 509412603 Problem Lentigines L81.4 Active confirmed 832214842 Problem Basal cell carcinoma of scalp C44.41 Active confirm ed 318234946 Problem Neuralgia M79.2 Active confirmed 15509827 Problem Dependence on supplemental oxygen Z99.81 Active confirmed 650190383082 Problem 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 Active confirmed 947656692 Problem History of diverticulitis Z87.19 Active confirmed 710424779021814 Problem COPD (chronic obstructive pulmonary disease) jose g e management patient J44.9 Active confirmed 628128331 Problem History of stent insertion of renal artery Z98.890 Active confirmed 559404737 Problem Other chronic pain G89.29 Active confirmed 8 1348114 Problem S/P coronary artery stent placement Z95.5 Acti ve confirmed 724210148 Problem Primary hypertension I10 Active confirmed 47674766 Problem Renovascular hypertension I15.0 Active confirmed 913373593 Problem 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 Active confirmed 065136569 Problem 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 Active confirmed 76781191 Problem Rheumatoid arthritis involvi ng multiple sites with positive rheumatoid factor M05.79 Active confirmed 258260069 Problem 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 No Points 0 Interpretation Negative Tobacco Use: Question Answer Notes Are you a: former smoker updated 05/25/2021 How long has it been since you last smoked? > 10 years [id number] REASON FOR REFERRAL No Information VITAL SIGNS [...] prn pain, MDD=4 none lately Apr, Active Isosorbide Mononitrate ER 60 MG [...] Information RESULTS No Results REASON FOR VISIT No Information MEDICAL (GENERAL) HISTORY Type Description Date Medical [...] Hospitalization History stroke [address] [facility] 07/2020 Goals Section No Information Health Concerns [...] Provider Name:Helio Zabala, 2021-07-01 01 :00:00 PM, [address] [place] [address], , [place], [address], Provider Name:Joy Samuels, 11:45:00 AM, [address] [place] [address], , [place], [address], Insurance Providers Payer Name Payer Address Payer Phone Insured Name Patient Relati onship to Insured Coverage Start Date Coverage End Date MEDICARE COMPLETE [employer] [address] [address] [facility] [phone] TIANNA THORNTON self
--- OUTSIDE RECORDS SUMMARY | 2021-07-14 15:59 | CCD ---
Author Author [facility] Organization 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 Active confirmed 809197995 Problem Basal cell carcinoma of scalp C44.41 Active confirm ed 708248392 Problem S/P coronary artery stent placement Z95.5 Acti ve confirmed 630661504 Problem History of diverticulitis Z87.19 Active confirmed 867680882802644 Problem History of stent insertion of renal artery Z98.890 Active confirmed 931354112 Problem 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 Active confirmed 850913546 Problem Renovascular hypertension I15.0 Active confirmed 924141104 Problem Other chronic pain G89.29 Active confirmed 8 2291319 Problem Dependence on supplemental oxygen Z99.81 Active confirmed 989465514828 Problem COPD (chronic obstructive pulmonary disease) jose g e management patient J44.9 Active confirmed 491100533 Problem 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 Active confirmed 38251573 Problem 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 Active confirmed 635044904 Problem Rheumatoid arthritis involvi ng multiple sites with positive rheumatoid factor M05.79 Active confirmed 852097062 ALLERGIES No Known Allergies ENCOUNTERS from 1940 to 2021-05-14 Encounter Location Date Provider Diagnosis [facility] [address] Floor [phone] [place] [address] Apr, Lyndon Rogersvo IMMUNIZATIONS Vaccine Route Administration Date Status COVID-19 [...] Graduate Language: Question Answer Notes Languages spoken: Indonesian Alcohol Screening: Question Answer Notes Did you have a drink containing alcohol in the past year? No Points 0 Interpretation Negative Tobacco Use: Question Answer Notes Are you a: former smoker updated 05/11/2021 How long has it been since you last smoked? > 10 years [id number] REASON FOR REFERRAL No Information VITAL SIGNS [...] prn pain, MDD=4 none lately Apr, Active Potassium Chloride Kinjal ER 10 MEQ [...] 5 min x 3 doses july Active Breo Ellipta 100-25 MCG/INH 1 puff [...] Information RESULTS No Results REASON FOR VISIT x-ray ordered MEDICAL (GENERAL) HISTORY Type Description Date Medical History Basal cell carcinoma, face Medical History copd Medical History s/p pacemaker Medical History renal artery stent Medical History Macular degeneration both eyes Medical History diverticulitis Medical History [place] Surgical History heart catheterization Surgical History coronary artery stent 07/2020 Surgical History ventral hernia repair Surgical History tubal ligation Surgical History elbow surgery Surgical History bypass Surgical History appendectomy 02/2019 Surgical History pacemaker 07/2020 Surgical History Stent none also 07/2020 Hospitalization History fractured foot 2017 Hospitalization History stroke [address] [facility] 07/2020 Goals Section No Information Health Concerns [...] tablet with meals Orally Twice a day Next Appt Details Provider Name:Helio Zabala, 2021-05-21 01 :30:00 PM, [facility] , , [place], [address], Provider Name:Helio Zabala, 2021-07-01 01 :00:00 PM, [facility] , , [place], [address], Provider Name:Joy Samuels, 11:45:00 AM, [address] [place] [address], , [place], [address], Insurance Providers Payer Name Payer Address Payer Phone Insured Name Patient Relati onship to Insured Coverage Start Date Coverage End Date MEDICARE COMPLETE [employer] [address] [address] [facility] [address] TIANNA THORNTON
--- OUTSIDE RECORDS SUMMARY | 2021-07-14 15:59 | CCD ---
Author Author [facility] Organization [facility] Address Unknown Phone Unavailable Care Team Providers Care It Audit Manager Name Role Phone Helio Zabala Unavailable PROBLEMS Type Condition ICD9-CM Code [id number] Code Onset Dates Condition S tatus W/U Status Risk SNOMED Code Notes Problem Seborrheic keratoses L82.1 Active confirmed 918048539 Problem Actinic keratosis L57.0 Active confirmed 20 3403293 Problem History of nonmelanoma skin cancer Z85.828 Activ e confirmed 699933416 Problem Lentigines L81.4 Active confirmed 078279046 Problem Basal cell carcinoma of scalp C44.41 Active confirm ed 450369333 Problem Neuralgia M79.2 Active confirmed 05840544 Problem Dependence on supplemental oxygen Z99.81 Active confirmed 576494417229 Problem 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 Active confirmed 822854026 Problem History of diverticulitis Z87.19 Active confirmed 660507045777556 Problem COPD (chronic obstructive pulmonary disease) jose g e management patient J44.9 Active confirmed 157891804 Problem History of stent insertion of renal artery Z98.890 Active confirmed 271041485 Problem Other chronic pain G89.29 Active confirmed 8 2952639 Problem S/P coronary artery stent placement Z95.5 Acti ve confirmed 467666542 Problem Primary hypertension I10 Active confirmed 43948788 Problem Renovascular hypertension I15.0 Active confirmed 765463659 Problem 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 Active confirmed 131443648 Problem 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 Active confirmed 58384473 Problem Rheumatoid arthritis involvi ng multiple sites with positive rheumatoid factor M05.79 Active confirmed 509792692 Problem 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 No Points 0 Interpretation Negative Tobacco Use: Question Answer Notes Are you a: former smoker updated 05/25/2021 How long has it been since you last smoked? > 10 years [id number] REASON FOR REFERRAL No Information VITAL SIGNS No information MEDICATIONS Medication SIG (Take, Route, Frequency, Duration) Notes Start Da te End Date Status Evolocumab 140 MG/ML 1 ml Subcutaneous every 14 days repatha Not-Taking Metoprolol Tartrate 25 MG 1 tablet with food Orally qhs 05/09/21 Active Potassium Chloride Kinjal ER 10 MEQ 1 tablet with food Orally Once a da y Active Nitroglycerin 0.4 MG 1 tab Sublingual as needed every 5 min x 3 doses july Active levoFLOXacin 500 MG 1 tablet Orally Once a day for 10 day(s) Apr, Not-Taking Melatonin 5 MG 1 tablet at bedtime as needed with food Orally Once a day Not-Taking Clopidogrel Bisulfate 75 MG 1 tablet Orally Once a day for 90 day(s) 05/03/21 Active Isosorbide Mononitrate ER 60 MG 1 tablet in the morning Oral ly Once a day 05/09/21 Active Citalopram Hydrobromide 20 MG 1 tablet Orally Once a day Active Oxybutynin Chloride 5 MG 1 tablet Orally Twice a day Active Incruse Ellipta 62.5 MCG/INH INHALE 1 PUFF BY MOUTH ONCE A DAY for 90 Active Aspirin 81 81 MG 1 tablet Orally Once a day Active Chlorthalidone 25 MG 1/2 tablet in the morning with food Or ally Once a day 05/10/21 Active Ambien 10 MG 1 tablet [...] 1 puff Inhalation Once a day Active HYDROcodone-Acetaminophen 10-325 MG 1 tablet as needed Orally qid prn pain, MDD=4 for 7 days Jun, Active Flagyl 500 MG 1 tablet Orally twice a day as needed 05/10/21 Not-Taking Calcium 1 tab Oral Not-Taking Docusate [...] Information RESULTS No Results REASON FOR VISIT Refill - Hydrocodone MEDICAL (GENERAL) HISTORY Type Description Date Medical History Basal cell carcinoma, face Medical History copd Medical History s/p pacemaker Medical History renal artery stent Medical History Macular degeneration both eyes Medical History diverticulitis Medical History [place] Surgical History heart catheterization Surgical History coronary artery stent 07/2020 Surgical History ventral hernia repair Surgical History tubal ligation Surgical History elbow surgery Surgical History bypass Surgical History appendectomy 02/2019 Surgical History pacemaker 07/2020 Surgical History Stent none also 07/2020 Hospitalization History fractured foot 2017 Hospitalization History stroke [address] [facility] 07/2020 Goals Section No Information Health Concerns [...] MOUTH ONCE A DAY f or 90 Aspirin 81 81 MG 1 tablet Orally Once a day Isosorbide Mononitrate ER 60 MG 1 tablet in the morning Orally O nce a day Clopidogrel Bisulfate 75 MG 1 tablet Orally Once a day for 90 da y(s) Chlorthalidone 25 MG 1/2 tablet in the morning with food Orally Once a day Oxybutynin Chloride 5 MG 1 tablet Orally Twice a day Famotidine 20 MG 1 tab Orally Twice a day Lyrica 150 MG 1 capsule Orally Twice a day, CODE D, MDD=2 Potassium Chloride Kinjal ER 10 MEQ 1 tablet with food Orally Once a day Lisinopril 5 MG 1 tablet Orally Once a day at bedtime Sep, Breo Ellipta 100-25 MCG/INH 1 puff Inhalation Once a day Nitroglycerin 0.4 MG 1 tab Sublingual as needed every 5 min x 3 doses HYDROcodone-Acetaminophen 10-325 MG 1 tablet as needed Orally qid prn pain, MDD=4 for 7 days Jun, Citalopram Hydrobromide 20 MG 1 tablet Orally Once a day Metoprolol Tartrate 25 MG 1 tablet with food Orally qhs Next Appt Details Provider Name:Helio Zabala, 2021-08-24 03 :30:00 PM, [address] [place] [address], , [place], [address], Provider Name:Joy Samuels, 11:45:00 AM, [address] [place] [address], , [place], [address], Provider Name:Lyndon Schwartz, 2021-09-02 02:30:00 PM, [address] [place] [address], , [place], [address], Provider Name:Lyndon Schwartz, 2021-09-06 01:45:00 PM, [address] [place] [address], , [place], [address], Insurance Providers Payer Name Payer Address Payer Phone Insured Name Patient Relati onship to Insured Coverage Start Date Coverage End Date MEDICARE COMPLETE [facility] [address] [address] [facility] [phone] TIANNA THORNTON self
--- OUTSIDE RECORDS SUMMARY | 2021-07-14 16:00 | CCD | Continuity of Care Document ---
Author Author [facility] Organization Unknown Address [address] [place] [address] Phone [phone] Care Team Providers Care Charge Entry Name Role Phone Helio Zabala M.D. AUTM [phone] Problems Description No Information Available Social History [...] Available Vital Signs Date Vital Result Comment 01/19/2021 1:20pm BP Systolic 120 mmHg BP Diastolic 70 mmHg Heart Rate 76 /min Respiratory Rate 16 /min Results Description No Information Available Procedures Date Code Description Status 02/01/2021 53385 Nerve Conduction 13+ Studies Com pleted 02/01/2021 25121 Needle Electromyography Complete , Five Or More Muscles Studied Completed 02/01/2021 54111 Needle Electromyography Complete , Five Or More Muscles Studied Completed 01/19/2021 64042 Office/Outpatient Established Mo d MDM 30-39 Min Completed Medical Devices Description No Information Available Encounters Type Date Location Provider Dx Diagnosis Office Visit 01/19/2021 10:45a Main office - Wayne Zari eddy PJosé MiguelAJosé Miguel-Reyna G40.89 Other seizures R55 Syncope and collapse R42 Dizziness and giddiness G47.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 05/06/2021 R55 Syncope and collapse Zari BelloJosé Miguel salas, P.A.-C. 05/06/2021 G40.89 Other seizures Zari BelloJosé Miguel Ochoa, P.A.-C. 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 05/06/2021 M54.5 Low back pain Zari Ochoa, P.A.-C. 05/06/2021 G60.9 Hereditary and idiopathic neurop athy, unspecified Zari Ochoa, P.A.-C. 04/21/2021 R42 Dizziness and giddiness Zari Ochoa, P.A.-C. 04/21/2021 R55 Syncope and collapse Zari BelloJosé Miguel salas, P.A.-C. 04/21/2021 G40.89 Other seizures Zari Ochoa, P.A.-C. 04/21/2021 G47.51 Confusional arousals Zari BelloJosé Miguel salas, P.A.-C. 04/21/2021 M54.5 Low back pain Zari BelloJosé Miguel Ochoa, P.A.-C. 04/21/2021 G60.9 Hereditary and idiopathic neurop athy, unspecified Zari Ochoa, P.A.-C. 02/01/2021 M54.5 Low back pain Carline Ynes, M.D . 02/01/2021 M54.16 Radiculopathy, lumbar region Abd ul Ynes, M.D. 02/01/2021 R20.2 Paresthesia of skin Carline Ynes, M.D. 02/01/2021 G60.9 Hereditary and idiopathic neurop athy, unspecified Carline Ynes, M.D. 01/19/2021 G40.89 Other seizures Zari Ochoa, P.A.-C. 01/19/2021 R55 Syncope and collapse Zari BelloJosé Miguel salas, P.A.-C. 01/19/2021 R42 Dizziness and giddiness Zari Steven Ochoa P.A.-C. 01/19/2021 G47.51 Confusional arousals Zari salas P.A.-C. 01/19/2021 M54.5 Low back pain Zari Ochoa P.A.-C. 01/19/2021 R20.2 Paresthesia of skin Zari eddy P.A.-C. Plan of Treatment Future Appointment(s):* 08/06/2021 8:30 am - Zari Ochoa P.A.-C. at Main [facility] 05/06/2021 - Zari Ochoa P.A.-C.* R42 Dizziness and giddiness * R55 Syncope and collapse * G40.89 Other seizures * G47.51 Confusional arousals * M54.5 Low back pain * G60.9 Hereditary and idiopathic neuropathy, unspecified Functional Status Description No Information Available Mental Status Description No Information Available Referrals Refer to Dr Reason for Referral Status Appt Date Lyndon Rubio M.D. LOW BACK PAIN Created [facility] [address] [place] [address] [phone] [facility] POSITIVE RF AND ESR WITH HISTORY OF CAD Created Rheumatology [address] [facility] [address] [place] [address] [phone]
--- OUTSIDE RECORDS SUMMARY | 2021-07-14 16:00 | CCD ---
Author Author [facility] Organization 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 Active confirmed 685638782 Problem Basal cell carcinoma of scalp C44.41 Active confirm ed 506902607 Problem S/P coronary artery stent placement Z95.5 Acti ve confirmed 291638539 Problem History of diverticulitis Z87.19 Active confirmed 987407411051531 Problem History of stent insertion of renal artery Z98.890 Active confirmed 539744555 Problem 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 Active confirmed 710905548 Problem Renovascular hypertension I15.0 Active confirmed 872937819 Problem Other chronic pain G89.29 Active confirmed 8 8365119 Problem Dependence on supplemental oxygen Z99.81 Active confirmed 776207374207 Problem COPD (chronic obstructive pulmonary disease) jose g e management patient J44.9 Active confirmed 133350701 Problem 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 Active confirmed 76065201 Problem 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 Active confirmed 107942481 Problem Rheumatoid arthritis involvi ng multiple sites with positive rheumatoid factor M05.79 Active confirmed 826110544 ALLERGIES No Known Allergies ENCOUNTERS from 1940 to 2021-04-30 Encounter Location Date Provider Diagnosis [facility] Nacho HOYT [phone] [place] [address] Apr, Helio Zabala Renovascular hypertension I15.0 IMMUNIZATIONS Vaccine Route Administration [...] Graduate Language: Question Answer Notes Languages spoken: Japanese Alcohol Screening: Question Answer Notes Did you have a drink containing alcohol in the past year? No Points 0 Interpretation Negative Tobacco Use: Question Answer Notes Are you a: former smoker updated 12/30/2020 How long has it been since you last smoked? > 10 years [id number] REASON FOR REFERRAL No Information VITAL SIGNS No information MEDICATIONS Medication SIG (Take, Route, Frequency, Duration) Notes Start Da te End Date Status Flagyl 500 MG 1 tablet Orally twice a day as needed for 10 day(s) Not-Taking Breo Ellipta 100-25 MCG/INH 1 puff Inhalation Once a day Active Clopidogrel Bisulfate 75 MG 1 tablet Orally Once a day Active Incruse Ellipta 62.5 MCG/INH 1 puff Inhalation Once a day Active Ambien 10 MG 1 tablet at bedtime as needed Orally Once a day Not-Taking Docusate Sodium 100 MG 1 capsule as needed Orally twice a day Not-Taking Nitroglycerin 0.4 MG 1 tab Sublingual as needed every 5 min x 3 doses july Active Evolocumab 140 MG/ML 1 ml Subcutaneous every 14 days repatha Not-Taking Polyethylene Glycol - as directed orally 17 GM daily Not-Taking Citalopram Hydrobromide 20 MG 1 tablet Orally Once a day Active Magnesium 250 MG 1 tablet with a meal Orally Once a day Active Vitamin D3 50 MCG (1999 UT) 1 capsule Orally Once a day Active Metoprolol Tartrate 25 MG 1 tablet with food Orally qhs Active Chlorthalidone 25 MG 1/2 tablet in the morning w ith food Orally Once a day for 90 day(s) Active Famotidine 20 MG 1 tab Orally Twice a day for 30 Days Active Aspirin 81 81 MG 1 tablet Orally Once a day Active Oxybutynin Chloride 5 MG 1 tablet Orally Twice a day Active Isosorbide Mononitrate ER 60 MG 1 tablet in the mornin g Orally Once a day for 90 day(s) Active levETIRAcetam 500 MG 1 tablet Orally Twice a day Not-Taking HYDROcodone-Acetaminophen 10-325 MG 1 tablet as needed Orally qid prn pain, MDD=4 for 7 days available when increased pain Feb, N ot-Taking DULoxetine HCl 30 MG 1 capsule Orally Once a day for 30 day(s) Not-Taking Melatonin 5 MG 1 tablet at bedtime as needed with food Orally Once a day Not-Taking May Use 1 tab orally Daily Not-Ta thien Calcium 1 tab Oral Not-Taking Lisinopril 5 MG 1 tablet Orally Once a day at bedtime 2020 Active Lyrica 150 MG 1 capsule Orally Twice a day, CODE D, MDD=2 for 90 day( s) Active DULoxetine HCl 30 MG 1 capsule Orally Once a day for 30 day(s) Active Calcium 500 MG 1.5 tablet with meals Orally Twice a day Active Potassium Chloride Kinjal ER 10 MEQ 1 tablet with food O rally Once a day for 90 day(s) Active metroNIDAZOLE 500 MG 1 tablet Orally Three times a day for 1 0 day(s) only as needed January, Active PROCEDURES No Information RESULTS No Results REASON FOR VISIT med refill MEDICAL (GENERAL) HISTORY Type Description Date Medical History Basal cell carcinoma, face Medical History copd Medical History s/p pacemaker Medical History renal artery stent Medical History Macular degeneration both eyes Surgical History heart catheterization Surgical History coronary artery stent 07/2020 Surgical History ventral hernia repair Surgical History tubal ligation Surgical History elbow surgery Surgical History bypass Surgical History appendectomy 02/2019 Surgical History pacemaker 07/2020 Surgical History Stent none also 07/2020 Hospitalization History fractured foot 2017 Hospitalization History stroke [address] [facility] 07/2020 Goals Section No Information Health Concerns No Information MEDICAL EQUIPMENT No Information MENTAL STATUS No Information FUNCTIONAL STATUS No Information ASSESSMENTS Encounter Date Diagnosis Assessment Notes Treatment Notes Treatm ent Clinical Notes Apr, Renovascular hypertension (ICD-10 - I15.0) PLAN OF TREATMENT Medication Medication Name Sig Start Date Stop Date Chlorthalidone 25 MG 1/2 tablet in the morning w ith food Orally Once a day for 90 day(s) Next Appt Details Provider Name:Lyndon Schwartz, 2021-05-10 01:00:00 PM, [address], , [place], [address], Provider Name:Helio Zabala, 2021-07-01 01 :00:00 PM, [address] [place] [address], , [place], [address], Provider Name:Joy Samuels, 11:45:00 AM, [address] [facility], , [place], [address], Insurance Providers Payer Name Payer Address Payer Phone Insured Name Patient Relati onship to Insured Coverage Start Date Coverage End Date MEDICARE COMPLETE [facility] [address] [address] [facility] [id number] TIANNA THORNTON self
--- OUTSIDE RECORDS SUMMARY | 2021-07-14 16:00 | CCD ---
Author Author [facility] Organization [facility] Address Unknown Phone Unavailable Care Team Providers Care Payroll And Benefits Assistant Name Role Phone Brett Dominique Unavailable PROBLEMS Type Condition ICD9-CM Code [id number] Code Onset Dates Condition S tatus W/U Status Risk SNOMED Code Notes Problem Actinic keratosis L57.0 Active confirmed 20 1696073 Problem Lentigines L81.4 Active confirmed 025577806 Problem Seborrheic keratoses L82.1 Active confirmed 629911212 Problem Neuralgia M79.2 Active confirmed 72595366 Problem History of nonmelanoma skin cancer Z85.828 Activ e confirmed 131509363 Problem 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 Active confirmed 407212329 Problem Basal cell carcinoma of scalp C44.41 Active confirm ed 339570045 Problem S/P coronary artery stent placement Z95.5 Acti ve confirmed 185923199 Problem History of diverticulitis Z87.19 Active confirmed 980852967875366 Problem History of stent insertion of renal artery Z98.890 Active confirmed 014583298 Problem 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 Active confirmed 291484081 Problem Renovascular hypertension I15.0 Active confirmed 429517706 Problem Other chronic pain G89.29 Active confirmed 8 4275343 Problem Dependence on supplemental oxygen Z99.81 Active confirmed 339038898123 Problem COPD (chronic obstructive pulmonary disease) jose g e management patient J44.9 Active confirmed 730971919 Problem 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 Active confirmed 45924661 Problem 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 Active confirmed 037923122 Problem Rheumatoid arthritis involvi ng multiple sites with positive rheumatoid factor M05.79 Active confirmed 856539343 ALLERGIES No Known Allergies ENCOUNTERS from 1940 to 2021-04-15 Encounter Location Date Provider Diagnosis [facility] [address] [facility] 3rd Floor [phone] [place] [address] Mar, Brett Dominique IMMUNIZATIONS Vaccine Route Administration Date Status COVID-19 [...] Graduate Language: Question Answer Notes Languages spoken: Greenlandic Alcohol Screening: Question Answer Notes Did you have a drink containing alcohol in the past year? No Points 0 Interpretation Negative Tobacco Use: Question Answer Notes Are you a: former smoker updated 12/30/2020 How long has it been since you last smoked? > 10 years [id number] REASON FOR REFERRAL No Information VITAL SIGNS [...] needed every 5 min x 3 doses Active Evolocumab 140 MG/ML 1 ml Subcutaneous every 14 days Not-Taking Polyethylene Glycol - as directed orally 17 GM daily Not-Taking Citalopram Hydrobromide 20 MG 1 tablet Orally Once a day Active Magnesium 250 MG 1 tablet with a meal Orally Once a day Active Vitamin D3 50 MCG (2000 UT) 1 capsule Orally Once a day Active Metoprolol Tartrate 25 MG 1 tablet with food Orally qhs Active Lisinopril 5 MG 1 tablet Orally Once a day at bedtime 2020 Active Famotidine 20 MG 1 tab Orally Twice a day for 30 Days Active Aspirin 81 81 MG 1 tablet Orally Once a day Active Oxybutynin Chloride 5 MG 1 tablet Orally Twice a day Active Chlorthalidone 25 MG 1/2 tablet in the morning with food Orally On ce a day Active levETIRAcetam 500 MG 1 tablet Orally Twice a day Not-Taking HYDROcodone-Acetaminophen 10-325 MG 1 tablet as needed Orally qid prn pain, MDD=4 for 7 days Feb, Not-Taking DULoxetine HCl 30 MG 1 capsule Orally Once a day for 30 day(s) Not-Taking Melatonin 5 MG 1 tablet at bedtime as needed with food Orally Once a day Not-Taking May Use 1 tab orally Daily Not-Ta thien Calcium 1 tab Oral Not-Taking Isosorbide Mononitrate ER 60 MG 1 tablet in the mornin g Orally Once a day for 90 day(s) Active Lyrica 150 MG 1 capsule Orally [...] tablet Orally Three times a day for 10 da y(s) January, Active PROCEDURES No Information RESULTS No Results REASON FOR VISIT RADIOLOGY FILMS MEDICAL (GENERAL) HISTORY Type Description Date Medical [...] Hospitalization History stroke [address] [facility] 07/2020 Goals Section No Information Health Concerns No Information MEDICAL EQUIPMENT No Information MENTAL STATUS No Information FUNCTIONAL STATUS No Information ASSESSMENTS No Information PLAN OF TREATMENT Next Appt Details Provider Name:Lyndon Schwartz, 2021-05-10 01:00:00 PM, [address], , [place], [address], Provider Name:Helio Zabala, 2021-07-01 01 :00:00 PM, [address] , , [place], [address], Provider Name:Joy Samuels, 11:45:00 AM, [address] [place] [address], , [place], [address], Insurance Providers Payer Name Payer Address Payer Phone Insured Name Patient Relati onship to Insured Coverage Start Date Coverage End Date MEDICARE COMPLETE [employer] [address] [address] [facility] [id number] TIANNA THORNTON self
--- OUTSIDE RECORDS SUMMARY | 2021-07-14 16:00 | CCD ---
Author Author [facility] Organization [facility] Address Unknown Phone Unavailable Care Team Providers Care Acute Care Physical Therapist Name Role Phone Helio Zabala Unavailable PROBLEMS Type Condition ICD9-CM Code [id number] Code Onset Dates Condition S tatus W/U Status Risk SNOMED Code Notes Problem Actinic keratosis L57.0 Active confirmed 20 7473445 Problem Lentigines L81.4 Active confirmed 788571549 Problem Seborrheic keratoses L82.1 Active confirmed 490354812 Problem Neuralgia M79.2 Active confirmed 81756816 Problem History of nonmelanoma skin cancer Z85.828 Activ e confirmed 037181749 Problem 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 Active confirmed 001501272 Problem Basal cell carcinoma of scalp C44.41 Active confirm ed 373961481 Problem S/P coronary artery stent placement Z95.5 Acti ve confirmed 175272477 Problem History of diverticulitis Z87.19 Active confirmed 994862449848203 Problem History of stent insertion of renal artery Z98.890 Active confirmed 635270500 Problem 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 Active confirmed 113513536 Problem Renovascular hypertension I15.0 Active confirmed 951479346 Problem Other chronic pain G89.29 Active confirmed 8 5311879 Problem Dependence on supplemental oxygen Z99.81 Active confirmed 494476957883 Problem COPD (chronic obstructive pulmonary disease) jose g e management patient J44.9 Active confirmed 670514084 Problem 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 Active confirmed 72478493 Problem 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 No Points 0 Interpretation Negative Tobacco Use: Question Answer Notes Are you a: former smoker updated 12/30/2020 How long has it been since you last smoked? > 10 years [id number] REASON FOR REFERRAL No Information VITAL SIGNS No information MEDICATIONS Medication SIG (Take, Route, Frequency, Duration) Notes Start Da te End Date Status Flagyl 500 MG 1 tablet Orally twice a day as needed for 10 day(s) Not-Taking Evolocumab 140 MG/ML 1 ml Subcutaneous every 14 days repatha Not-Taking Clopidogrel Bisulfate 75 MG 1 tablet Orally Once a day Active Breo Ellipta 100-25 MCG/INH 1 puff Inhalation Once a day Active Ambien 10 MG 1 tablet at bedtime as needed Orally Once a day Not-Taking Magnesium 250 MG 1 tablet with a meal Orally Once a day Active Nitroglycerin 0.4 MG 1 tab Sublingual as needed every 5 min x 3 doses july Active Docusate Sodium 100 MG 1 capsule as needed Orally twice a day Not-Taking Vitamin D3 50 MCG (1999 UT) 1 capsule Orally Once a day Active Citalopram Hydrobromide 20 MG 1 tablet Orally Once a day Active Polyethylene Glycol - as directed orally 17 GM daily Not-Taking Melatonin 5 MG 1 tablet at bedtime as needed with food Orally Once a day Not-Taking Metoprolol Tartrate 25 MG [...] Once a day for 30 day(s) Not-Taking Isosorbide Mononitrate ER 60 MG 1 tablet in the mornin g Orally Once a day for 90 day(s) Active levETIRAcetam 500 MG 1 tablet Orally Twice a day Not-Taking Oxybutynin Chloride 5 MG 1 tablet Orally Twice a day Active Incruse Ellipta 62.5 MCG/INH 1 puff Inhalation Once a day Active HYDROcodone-Acetaminophen 10-325 MG 1 tablet as needed Orally qid prn pain, MDD=4 for 7 days available when increased pain Apr, A ctive May Use 1 tab orally Daily Not-Ta [...] Information RESULTS No Results REASON FOR VISIT refill hydrocodone MEDICAL (GENERAL) HISTORY Type Description Date Medical [...] Hospitalization History stroke [address] [facility] 07/2020 Goals Section No Information Health Concerns No Information MEDICAL EQUIPMENT No Information MENTAL STATUS No Information FUNCTIONAL STATUS No Information ASSESSMENTS No Information PLAN OF TREATMENT Medication Medication Name Sig Start Date Stop Date HYDROcodone-Acetaminophen 10-325 MG 1 tablet as needed Orally qid prn pain, MDD=4 for 7 days Apr, Chlorthalidone 25 MG 1/2 tablet in the morning w ith food Orally Once a day for 90 day(s) Next Appt Details Provider Name:Lyndon Schwartz, 2021-05-10 01:00:00 PM, [address], , [place], [address], Provider Name:Helio Zabala, 2021-07-01 01 :00:00 PM, [address] [place] [address], , [place], [address], Provider Name:Joy Samuels, 11:45:00 AM, [address] [facility], , [place], [address], Insurance Providers Payer Name Payer Address Payer Phone Insured Name Patient Relati onship to Insured Coverage Start Date Coverage End Date MEDICARE COMPLETE [facility] [address] [address] [facility] [id number] TIANNA THORNTON self
--- OUTSIDE RECORDS SUMMARY | 2021-07-14 16:00 | CCD ---
Author Author [facility] Organization [facility] Address Unknown Phone Unavailable Care Team Providers Care Glass Melt Operator Name Role Phone Brett Dominique Unavailable PROBLEMS Type Condition ICD9-CM Code [id number] Code Onset Dates Condition S tatus W/U Status Risk SNOMED Code Notes Problem Actinic keratosis L57.0 Active confirmed 20 5208310 Problem Lentigines L81.4 Active confirmed 749797140 Problem Seborrheic keratoses L82.1 Active confirmed 741283174 Problem Neuralgia M79.2 Active confirmed 74348893 Problem History of nonmelanoma skin cancer Z85.828 Activ e confirmed 341115978 Problem 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 Active confirmed 669013464 Problem Basal cell carcinoma of scalp C44.41 Active confirm ed 753878631 Problem S/P coronary artery stent placement Z95.5 Acti ve confirmed 689710720 Problem History of diverticulitis Z87.19 Active confirmed 580830883389076 Problem History of stent insertion of renal artery Z98.890 Active confirmed 981846759 Problem 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 Active confirmed 609315489 Problem Renovascular hypertension I15.0 Active confirmed 170775841 Problem Other chronic pain G89.29 Active confirmed 8 9510892 Problem Dependence on supplemental oxygen Z99.81 Active confirmed 610178690212 Problem COPD (chronic obstructive pulmonary disease) jose g e management patient J44.9 Active confirmed 807162247 Problem 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 Active confirmed 74348565 Problem 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 Active confirmed 356279125 Problem Rheumatoid arthritis involvi ng multiple sites with positive rheumatoid factor M05.79 Active confirmed 310561895 ALLERGIES No Known Allergies ENCOUNTERS from 1940 to 2021-04-14 Encounter Location Date Provider Diagnosis [facility] [address] [facility] 3rd Floor [phone] [place] [address] Mar, Brett Dominique IMMUNIZATIONS Vaccine Route Administration [...] Graduate Language: Question Answer Notes Languages spoken: Canadian Alcohol Screening: Question Answer Notes Did you have a drink containing alcohol in the past year? No Points 0 Interpretation Negative Tobacco Use: Question Answer Notes Are you a: former smoker updated 12/30/2020 How long has it been since you last smoked? > 10 years [id number] REASON FOR REFERRAL No Information VITAL SIGNS [...] Information RESULTS No Results REASON FOR VISIT Med Hold Plavix MEDICAL (GENERAL) HISTORY Type Description Date Medical [...] Hospitalization History stroke [address] [facility] [place] 07/2020 Goals Section No Information Health Concerns No Information MEDICAL EQUIPMENT No Information MENTAL STATUS No Information FUNCTIONAL STATUS No Information ASSESSMENTS No Information PLAN OF TREATMENT Next Appt Details Provider Name:Lyndon Schwartz, 2021-05-10 01:00:00 PM, [address], , [place], [address], Provider Name:Helio Zabala, 2021-07-01 01 :00:00 PM, [address] [facility], , [place], [address], Provider Name:Joy Samuels, 11:45:00 AM, [address] [place] [address], , [place], [address], Insurance Providers Payer Name Payer Address Payer Phone Insured Name Patient Relati onship to Insured Coverage Start Date Coverage End Date MEDICARE COMPLETE [employer] [address] [address] [facility] [id number] TIANNA THORNTON self
--- OUTSIDE RECORDS SUMMARY | 2021-07-14 16:00 | CCD ---
Author Author [facility] Organization [facility] Address Unknown Phone Unavailable Care Team Providers Care Track Welder Name Role Phone Helio Zabala Unavailable PROBLEMS Type Condition ICD9-CM Code [id number] Code Onset Dates Condition S tatus W/U Status Risk SNOMED Code Notes Problem Actinic keratosis L57.0 Active confirmed 20 3779015 Problem Lentigines L81.4 Active confirmed 474458283 Problem Seborrheic keratoses L82.1 Active confirmed 407400573 Problem Neuralgia M79.2 Active confirmed 99700837 Problem History of nonmelanoma skin cancer Z85.828 Activ e confirmed 371191960 Problem 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 Active confirmed 538953076 Problem Basal cell carcinoma of scalp C44.41 Active confirm ed 549458368 Problem S/P coronary artery stent placement Z95.5 Acti ve confirmed 471788058 Problem History of diverticulitis Z87.19 Active confirmed 966071341569356 Problem History of stent insertion of renal artery Z98.890 Active confirmed 298459444 Problem 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 Active confirmed 138020386 Problem Renovascular hypertension I15.0 Active confirmed 882568203 Problem Other chronic pain G89.29 Active confirmed 8 2445608 Problem Dependence on supplemental oxygen Z99.81 Active confirmed 578226436640 Problem COPD (chronic obstructive pulmonary disease) jose g e management patient J44.9 Active confirmed 851941935 Problem 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 Active confirmed 24486085 Problem 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 No Points 0 Interpretation Negative Tobacco Use: Question Answer Notes Are you a: former smoker updated 12/30/2020 How long has it been since you last smoked? > 10 years [id number] REASON FOR REFERRAL No Information VITAL SIGNS No information MEDICATIONS Medication SIG (Take, Route, Frequency, Duration) Notes Start Da te End Date Status Clopidogrel Bisulfate 75 MG 1 tablet Orally Once a day Active Evolocumab 140 MG/ML 1 ml Subcutaneous every 14 days repatha Not-Taking Calcium 1 tab Oral Not-Taking Breo Ellipta 100-25 MCG/INH 1 puff [...] a day Not-Taking Vitamin D3 50 MCG (1999) 1 capsule Orally Once a day Active Citalopram Hydrobromide 20 MG 1 tablet Orally Once a day Active Polyethylene Glycol - as directed orally 17 GM daily Not-Taking Melatonin 5 MG 1 tablet at bedtime as needed with food Orally Once a day Not-Taking Chlorthalidone 25 MG 1/2 tablet in the morning w ith food Orally Once a day for 90 day(s) Active Flagyl 500 MG 1 tablet Orally twice a day as needed for 10 day(s) Active Famotidine 20 MG 1 tab Orally Twice a day for 30 Days Active levETIRAcetam 500 MG 1 tablet Orally Twice a day Not-Taking DULoxetine HCl 30 MG 1 capsule Orally Once a day for 30 day(s) Not-Taking Isosorbide Mononitrate ER 60 MG 1 tablet in the mornin g Orally Once a day for 90 day(s) Active Metoprolol Tartrate 25 MG 1 tablet with food Orally qhs Active Oxybutynin Chloride 5 MG 1 tablet Orally Twice a day Active Incruse Ellipta 62.5 MCG/INH 1 puff Inhalation Once a day Active HYDROcodone-Acetaminophen 10-325 MG 1 tablet as needed Orally qid prn pain, MDD=4 for 7 days available when increased pain Apr, A ctive May Use 1 tab orally Daily Not-Ta thien Aspirin 81 81 MG 1 tablet Orally Once a day Active Lisinopril 5 MG 1 [...] Information RESULTS No Results REASON FOR VISIT diarrhea, request for flagyl MEDICAL (GENERAL) HISTORY Type Description Date Medical [...] Hospitalization History stroke [address] [facility] 07/2020 Goals Section No Information Health Concerns No Information MEDICAL EQUIPMENT No Information MENTAL STATUS No Information FUNCTIONAL STATUS No Information ASSESSMENTS No Information PLAN OF TREATMENT Medication Medication Name Sig Start Date Stop Date Chlorthalidone 25 MG 1/2 tablet in the morning w ith food Orally Once a day for 90 day(s) Flagyl 500 MG 1 tablet Orally twice a day as needed for 10 day (s) HYDROcodone-Acetaminophen 10-325 MG 1 tablet as needed Orally qid prn pain, MDD=4 for 7 days Apr, Next Appt Details Provider Name:Lyndon Rogersvo, 2021-05-10 01:00:00 PM, [address], , [place], [address], Provider Name:Helio Zabala, 2021-07-01 01 :00:00 PM, [address] [place] [address], , [place], [address], Provider Name:Joy Samuels, 11:45:00 AM, [address] [facility], , [place], [address], Insurance Providers Payer Name Payer Address Payer Phone Insured Name Patient Relati onship to Insured Coverage Start Date Coverage End Date MEDICARE COMPLETE [facility] [address] [address] [facility] [id number] TINANA THORNTON self
--- OUTSIDE RECORDS SUMMARY | 2021-07-14 16:02 | CCD ---
Author Author [facility] Organization [facility] Address Unknown Phone Unavailable Care Team Providers Care Client Services Associate Name Role Phone Baljit Zabala MD Unavailable Unavailable Baljit Zabala MD Unavailable Unavailable Baljit Zabala MD Unavailable Unavailable Baljit Zabala MD Unavailable Unavailable Baljit Zabala MD Unavailable Unavailable Baljit Zabala MD Unavailable Unavailable Baljit Zabala MD Unavailable Unavailable Baljit Zabala MD Unavailable Unavailable Baljit Zabala MD Unavailable Unavailable Baljit Zabala MD Unavailable Unavailable Baljit Zabala MD Unavailable Unavailable Baljit Zabala MD Unavailable Unavailable Baljit Zabala MD Unavailable Unavailable Baljit Zabala MD Unavailable Unavailable Baljit Zabala MD Unavailable Unavailable Baljit Zabala MD Unavailable Unavailable Baljit Zabala MD Unavailable Unavailable Baljit Zabala MD Unavailable Unavailable Baljit Zabala MD Unavailable Unavailable Baljit Zabala MD Unavailable Unavailable Baljit Zabala MD Unavailable Unavailable Baljit Zabala MD Unavailable Unavailable Baljit Zabala MD Unavailable Unavailable Baljit Zabala MD Unavailable Unavailable Baljit Zabala MD Unavailable Unavailable Baljit Zabala MD Unavailable Unavailable Baljit Zabala MD Unavailable Unavailable Baljit Zabala MD Unavailable Unavailable Baljit Zabala MD Unavailable Unavailable Baljit Zabala MD Unavailable Unavailable Baljit Zabala MD Unavailable Unavailable Baljit Zabala MD Unavailable Unavailable Baljit Zabala MD Unavailable Unavailable Baljit Zabala MD Unavailable Unavailable Baljit Zabala MD Unavailable Unavailable Baljit Zabala MD Unavailable Unavailable Baljit Zabala MD Unavailable Unavailable Baljit Zabala MD Unavailable Unavailable Baljit Zabala MD Unavailable Unavailable Baljit Zabala MD Unavailable Unavailable Baljit Zabala MD Unavailable Unavailable Baljit Zabala MD Unavailable Unavailable Baljit Zabala MD Unavailable Unavailable Baljit Zabala MD Unavailable Unavailable Baljit Zabala MD Unavailable Unavailable Baljit Zabala MD Unavailable Unavailable Baljit Zabala MD Unavailable Unavailable Baljit Zabala MD Unavailable Unavailable Baljit Zabala MD Unavailable Unavailable Baljit Zabala MD Unavailable Unavailable Baljit Zabala MD Unavailable Unavailable Baljit Zabala MD Unavailable Unavailable Baljit Zabala MD Unavailable Unavailable Baljit Zabala MD Unavailable Unavailable Baljit Zabala MD Unavailable Unavailable Baljit Zabala MD Unavailable Unavailable Baljit Zabala MD Unavailable Unavailable Baljit Zabala MD Unavailable Unavailable Baljit Zabala MD Unavailable Unavailable Baljit Zabala MD Unavailable Unavailable Baljit Zabala MD Unavailable Unavailable Baljit Zabala MD Unavailable Unavailable Baljit Zabala MD Unavailable Unavailable Baljit Zabala MD Unavailable Unavailable Baljit Zabala MD Unavailable Unavailable Baljit Zabala MD Unavailable Unavailable Baljit Zabala MD Unavailable Unavailable Baljit Zabala MD Unavailable Unavailable Baljit Zabala MD Unavailable Unavailable Baljit Zabala MD Unavailable Unavailable Baljit Zabala MD Unavailable Unavailable Baljit Zabala MD Unavailable Unavailable Baljit Zabala MD Unavailable Unavailable Baljit Zabala MD Unavailable Unavailable PETROFF, IVORY PA Unavailable Unavailable PETROFF, IVORY PA Unavailable Unavailable PETROFF, IVORY PA Unavailable Unavailable PETROFF, IVORY PA Unavailable Unavailable PETROFF, IVORY PA Unavailable Unavailable PETROFF, IVORY PA Unavailable Unavailable PETROFF, IVORY PA Unavailable Unavailable PETROFF, IVORY PA Unavailable [facility]available [facility] Unavailable Unavailable ALVARES, VANESSA ALBERT ACID REMOVER Unavailable Unavailable ALVARES, VANESSA ALBERT ACID REMOVER Unavailable Unavailable ALVARES, VANESSA ALBERT ACID REMOVER Unavailable Unavailable ALVARES, VANESSA ALBERT ACID REMOVER Unavailable Unavailable ALVARES, VANESSA ALBERT ACID REMOVER Unavailable Unavailable ALAVRES, VANESSA ALBERT ACID REMOVER Unavailable Unavailable ALVARES, VANESSA ALBERT ACID REMOVER Unavailable Unavailable ALVARES, VANESSA ALBERT ACID REMOVER Unavailable Unavailable ALVARES, VANESSA ALBERT ACID REMOVER Unavailable Unavailable ALVARES, VANESSA ALBERT ACID REMOVER Unavailable Unavailable ALVARES, VANESSA ALBERT ACID REMOVER Unavailable Unavailable ALVARES, VANESSA ALBERT ACID REMOVER Unavailable Unavailable ALVARES, VANESSA ALBERT ACID REMOVER Unavailable Unavailable ALVARES, VANESSA ALBERT ACID REMOVER Unavailable Unavailable ALVARES, VANESSA ALBERT ACID REMOVER Unavailable Unavailable ALVARES, VANESSA ALBERT ACID REMOVER Unavailable Unavailable ALVARES, VANESSA ALBERT ACID REMOVER Unavailable Unavailable ALVARES, VANESSA ALBERT ACID REMOVER Unavailable Unavailable ALVARES, VANESSA ALBERT ACID REMOVER Unavailable Unavailable ALVARES, VANESSA ALBERT ACID REMOVER Unavailable Unavailable ALVARES, VANESSA ALBERT ACID REMOVER Unavailable Unavailable ALVARES, VANESSA ALBERT ACID REMOVER Unavailable Unavailable ALVARES, VANESSA ALBERT ACID REMOVER Unavailable Unavailable ALVARES, VANESSA ALBERT ACID REMOVER Unavailable Unavailable ALVARES, VANESSA ALBERT ACID REMOVER Unavailable Unavailable ALVARES, VANESSA ALBERT ACID REMOVER Unavailable Unavailable ALVARES, VANESSA ALBERT ACID REMOVER Unavailable Unavailable ALVARES, VANESSA ALBERT ACID REMOVER Unavailable Unavailable ALVARES, VANESSA ALBERT ACID REMOVER Unavailable Unavailable ALVARES, VANESSA ALBERT ACID REMOVER Unavailable Unavailable ALVARES, VANESSA ALBERT ACID REMOVER Unavailable Unavailable ALVARES, VANESSA ALBERT ACID REMOVER Unavailable Unavailable ALVARES, VANESSA ALBERT ACID REMOVER Unavailable Unavailable ALVARES, VANESSA ALBERT ACID REMOVER Unavailable Unavailable ALVARES, VANESSA ALBERT ACID REMOVER Unavailable Unavailable ALVARES, VANESSA ALBERT ACID REMOVER Unavailable Unavailable ALVARES, VANESSA ALBERT ACID REMOVER Unavailable Unavailable ALVARES, VANESSA ALBERT ACID REMOVER Unavailable Unavailable ALVARES, VANESSA ALBERT ACID REMOVER Unavailable Unavailable ALVARES, VANESSA ALBERT ACID REMOVER Unavailable Unavailable ALVARES, VANESSA ALBERT ACID REMOVER Unavailable Unavailable ALVARES, VANESSA ALBERT ACID REMOVER Unavailable Unavailable ALVARES, VANESSA ALBERT ACID REMOVER Unavailable Unavailable ALVARES, VANESSA ALBERT ACID REMOVER Unavailable Unavailable ALVARES, VANESSA ALBERT ACID REMOVER Unavailable Unavailable ALVARES, VANESSA ALBERT ACID REMOVER Unavailable Unavailable ALVARES, VANESSA ALBERT ACID REMOVER Unavailable Unavailable ALVARES, VANESSA ALBERT ACID REMOVER Unavailable Unavailable ALVARES, VANESSA ALBERT ACID REMOVER Unavailable Unavailable ALVARES, VANESSA ALBERT ACID REMOVER Unavailable Unavailable SYMENOW, G CHRISTOPHER PA Unavailable Unavailable SYMENOW, G CHRISTOPHER PA Unavailable Unavailable SYMENOW, G CHRISTOPHER PA Unavailable Unavailable SYMENOW, G CHRISTOPHER PA Unavailable Unavailable SYMENOW, G CHRISTOPHER PA Unavailable Unavailable SYMENOW, G CHRISTOPHER PA Unavailable Unavailable SYMENOW, G CHRISTOPHER PA Unavailable Unavailable SYMENOW, G CHRISTOPHER PA Unavailable Unavailable SYMENOW, G CHRISTOPHER PA Unavailable Unavailable SYMENOW, G CHRISTOPHER PA Unavailable Unavailable SYMENOW, G CHRISTOPHER PA Unavailable Unavailable SYMENOW, G CHRISTOPHER PA Unavailable Unavailable SYMENOW, G CHRISTOPHER PA Unavailable Unavailable SYMENOW, G CHRISTOPHER PA Unavailable Unavailable SYMENOW, G CHRISTOPHER PA Unavailable Unavailable SYMENOW, G CHRISTOPHER PA Unavailable Unavailable Trickey, J Zari PA Unavailable Unavailable Trickey, J Zari PA Unavailable Unavailable Trickey, J Zari PA Unavailable Unavailable Trickey, J Zari PA Unavailable Unavailable Trickey, J Zari PA Unavailable Unavailable Trickey, J Zari PA Unavailable Unavailable Trickey, J Zari PA Unavailable Unavailable Trickey, J Zari PA Unavailable Unavailable Trickey, J Zari PA Unavailable Unavailable Trickey, J Zari PA Unavailable Unavailable Trickey, J Zari PA Unavailable Unavailable Trickey, J Zari PA Unavailable Unavailable Trickey, J Zari PA Unavailable Unavailable Trickey, J Zari PA Unavailable Unavailable Trickey, J Zari PA Unavailable Unavailable Trickey, J Zari PA Unavailable Unavailable Trickey, J Zari PA Unavailable Unavailable Trickey, J Zari PA Unavailable Unavailable Trickey, J Zari PA Unavailable Unavailable Trickey, J Zari PA Unavailable Unavailable Trickey, J Zari PA Unavailable Unavailable Trickey, J Zari PA Unavailable Unavailable Trickey, J Zari PA Unavailable Unavailable Trickey, J Zari PA Unavailable Unavailable Trickey, J Zari PA Unavailable Unavailable Trickey, J Zari PA Unavailable Unavailable Trickey, J Zari PA Unavailable Unavailable Trickey, J Zari PA Unavailable Unavailable Trickey, J Zari PA Unavailable Unavailable Trickey, J Zari PA Unavailable Unavailable Trickey, J Zari PA Unavailable Unavailable Trickey, J Zari PA Unavailable Unavailable Trickey, J Zari PA Unavailable Unavailable Trickey, J Zari PA Unavailable Unavailable Trickey, J Zari PA Unavailable Unavailable Trickey, J Zari PA Unavailable Unavailable Trickey, J Zari PA Unavailable Unavailable Trickey, J Zari PA Unavailable Unavailable Trickey, J Zari PA Unavailable Unavailable Trickey, J Zari PA Unavailable Unavailable Trickey, J Zari PA Unavailable Unavailable Trickey, J Zari PA Unavailable Unavailable Trickey, J Zari PA Unavailable Unavailable Trickey, J Zari PA Unavailable Unavailable Trickey, J Zari PA Unavailable Unavailable Trickey, J Zari PA Unavailable Unavailable Trickey, J Zair PA Unavailable Unavailable Trickey, J Zari PA Unavailable Unavailable Bello Ochoa Unavailable Unavailable DREA TAO JR Unavailable Unavailable Pauline Hernandez MD Unavailable Unavailable Pauline Hernandez MD Unavailable Unavailable Pauline Hernandez MD Unavailable Unavailable Pauline Hernandez MD Unavailable Unavailable Pauline Hernandez MD Unavailable Unavailable Pauline Hernandez MD Unavailable Unavailable Pauline Hernandez MD Unavailable Unavailable Pauline Hernandez MD Unavailable Unavailable Pauline Hernandez MD Unavailable Unavailable Pauline Hernandez MD Unavailable Unavailable Pauline Hernandez MD Unavailable Unavailable MARILY, NNIG ANTHONY PA Unavailable Unavailable MARILY, NING ANTHONY PA Unavailable Unavailable MARILY, NING ANTHONY PA Unavailable Unavailable MARILY, NING ANTHONY PA Unavailable Unavailable MARILY, NING ANTHONY PA Unavailable Unavailable MARILY, NING ANTHONY PA Unavailable Unavailable MARILY, NING ANTHONY PA Unavailable Unavailable MARILY, NING ANTHONY PA Unavailable Unavailable MARILY, NING ANTHONY PA Unavailable Unavailable MARILY, NING ANTHONY PA Unavailable Unavailable MARILY, NING ANTHONY PA Unavailable Unavailable MARILY, NING ANTHONY PA Unavailable Unavailable MARILY, NING ANTHONY PA Unavailable Unavailable MARILY, NING ANTHONY PA Unavailable Unavailable MARILY, NING ANTHONY PA Unavailable Unavailable MARILY, NING ANTHONY PA Unavailable Unavailable MARILY, NING ANTHONY PA Unavailable Unavailable MARILY, NING ANTHONY PA Unavailable Unavailable MARILY, NING ANTHONY PA Unavailable Unavailable MARILY, NING ANTHONY PA Unavailable Unavailable MARILY, NING ANTHONY PA Unavailable Unavailable MARILY, NING ANTHONY PA Unavailable Unavailable KWAME TAO JR Unavailable [phone] KWAME TAO JR Unavailable [phone] KWAME TAO JR Unavailable [phone] Franny YOUNGER Unavailable [phone] Franny YOUNGER Unavailable [phone] Franny YOUNGER Unavailable [phone] Franny YOUNGER Unavailable [phone] Franny YOUNGER Unavailable [phone] DREA BLEDSOE Unavailable Unavailable BEM, ANA MD Unavailable Unavailable BEM, ANA MD Unavailable Unavailable BEM, ANA MD Unavailable Unavailable BEM, ANA MD Unavailable Unavailable BEM, ANA MD Unavailable Unavailable BEM, ANA MD Unavailable Unavailable BEM, ANA MD Unavailable Unavailable BEM, ANA MD Unavailable Unavailable BEM, ANA MD Unavailable Unavailable BEM, ANA MD Unavailable Unavailable BEM, ANA MD Unavailable Unavailable BEM, ANA MD Unavailable Unavailable BEM, ANA MD Unavailable Unavailable BEM, ANA MD Unavailable Unavailable BEM, ANA MD Unavailable Unavailable BEM, ANA MD Unavailable Unavailable BEM, ANA MD Unavailable Unavailable BEM, ANA MD Unavailable Unavailable BEM, ANA MD Unavailable Unavailable BEM, ANA MD Unavailable Unavailable BEM, ANA MD Unavailable Unavailable BEM, ANA MD Unavailable Unavailable BEM, ANA MD Unavailable Unavailable BEM, ANA MD Unavailable Unavailable BEM, ANA MD Unavailable Unavailable BEM, ANA MD Unavailable Unavailable BEM, ANA MD Unavailable Unavailable BEM, ANA MD Unavailable Unavailable BEM, ANA MD Unavailable Unavailable BEM, ANA MD Unavailable Unavailable BEM, ANA MD Unavailable Unavailable BEM, ANA MD Unavailable Unavailable BEM, ANA MD Unavailable Unavailable BEM, ANA MD Unavailable Unavailable BEM, ANA MD Unavailable Unavailable BEM, ANA MD Unavailable Unavailable BEM, ANA MD Unavailable Unavailable BEM, ANA MD Unavailable Unavailable BEM, ANA MD Unavailable Unavailable BEM, ANA MD Unavailable Unavailable BEM, ANA MD Unavailable Unavailable BEM, ANA MD Unavailable Unavailable BEM, ANA MD Unavailable Unavailable BEM, ANA MD Unavailable Unavailable BEM, ANA MD Unavailable Unavailable BEM, ANA MD Unavailable Unavailable BEM, ANA MD Unavailable Unavailable BEM, ANA MD Unavailable Unavailable BEM, ANA MD Unavailable Unavailable BEM, ANA MD Unavailable Unavailable BEM, ANA MD Unavailable Unavailable BEM, ANA MD Unavailable Unavailable BEM, ANA MD Unavailable Unavailable BEM, ANA MD Unavailable Unavailable BEM, ANA MD Unavailable Unavailable BEM, ANA MD Unavailable Unavailable BEM, ANA MD Unavailable Unavailable BEM, ANA MD Unavailable Unavailable BEM, ANA MD Unavailable Unavailable BEM, ANA MD Unavailable Unavailable BEM, NAA MD Unavailable Unavailable BEM, ANA MD Unavailable Unavailable BEM, ANA MD Unavailable Unavailable BEM, ANA MD Unavailable Unavailable ANA HINTON MD Unavailable Unavailable MigeedFacundo MD Unavailable Unavaila ble MigeedFacundo MD Unavailable Unavaila ble MigeedFacundo MD Unavailable Unavaila ble MigeedFacundo MD Unavailable Unavaila ble MigeedFacundo MD Unavailable Unavaila ble MigeedFacundo MD Unavailable Unavaila ble MigeedFacundo MD Unavailable Unavaila ble MigeedFacundo MD Unavailable Unavaila ble Migeed, Facundo Galindo MD Unavailable Unavaila ble Migeed, Facundo Galindo MD Unavailable Unavaila ble Migeed, Facundo Galindo MD Unavailable Unavaila ble Migeed, Facundo Galindo MD Unavailable Unavaila ble Migeed, Facundo Galindo MD Unavailable Unavaila ble Migeed, Facundo Galindo MD Unavailable Unavaila ble Migeed, Facundo Galindo MD Unavailable Unavaila ble MigeedFacundo MD Unavailable Unavaila ble Migeed, Facundo Galindo MD Unavailable Unavaila ble Migeed, Facundo Galindo MD Unavailable Unavaila ble MigeedFacundo MD Unavailable Unavaila ble Migeed, Facundo Galindo MD Unavailable Unavaila ble MigeedFacundo MD Unavailable Unavaila ble MigeedFacundo MD Unavailable Unavaila ble MigeedFacundo MD Unavailable Unavaila ble MigeedFacundo MD Unavailable Unavaila ble MigeedFacundo MD Unavailable Unavaila ble MigeedFacundo MD Unavailable Unavaila ble MigeedFacundo MD Unavailable Unavaila ble MigeedFacundo MD Unavailable Unavaila ble MigeedFacundo MD Unavailable Unavaila ble MigeedFacundo MD Unavailable Unavaila ble MigeedFacundo MD Unavailable Unavaila ble MigeedFacundo MD Unavailable Unavaila ble MigeedFacundo MD Unavailable Unavaila ble MigeedFacundo MD Unavailable Unavaila ble MigeedFacundo MD Unavailable Unavaila ble MigeedFacundo MD Unavailable Unavaila ble MigeedFacundo MD Unavailable Unavaila ble MigeedFacundo MD Unavailable Unavaila ble MigeedFacundo MD Unavailable Unavaila ble MigeedFacundo MD Unavailable Unavaila ble MigeedFacundo MD Unavailable Unavaila ble MigeedFacundo MD Unavailable Unavaila ble MigeedFacundo MD Unavailable Unavaila ble MigeedFacundo MD Unavailable Unavaila ble MigeedFacundo MD Unavailable Unavaila ble MigeedFacundo MD Unavailable Unavaila ble MigeedFacundo MD Unavailable Unavaila ble MigeedFacundo MD Unavailable Unavaila ble MigeedFacundo MD Unavailable Unavaila ble Kai Dahl MD Unavailable Unavailable Kai Dahl MD Unavailable Unavailable Kai Dahl MD Unavailable Unavailable Kai Dahl MD Unavailable Unavailable Kai Dahl MD Unavailable Unavailable Kai Dahl MD Unavailable Unavailable Kai Dahl MD Unavailable Unavailable Kai Dahl MD Unavailable Unavailable Kai Dahl MD Unavailable Unavailable Kai Dahl MD Unavailable Unavailable Kai Dahl MD Unavailable Unavailable Kai Dahl MD Unavailable Unavailable Kai Dahl MD Unavailable Unavailable Kai Dahl MD Unavailable Unavailable Kai Dahl MD Unavailable Unavailable Kai Dahl MD Unavailable Unavailable Kai Dahl MD Unavailable Unavailable Kai Dahl MD Unavailable Unavailable Kai Dahl MD Unavailable Unavailable RAINA, L SONALI PA Unavailable Unavailable RAINA, L SONALI PA Unavailable Unavailable RAINA, L SONALI PA Unavailable Unavailable RAINA, L SONALI PA Unavailable Unavailable RAINA, L SONALI PA Unavailable Unavailable RAINA, L SONALI PA Unavailable Unavailable RAINA, L SONALI PA Unavailable Unavailable RAINA, L SONALI PA Unavailable Unavailable RAINA, L SONALI PA Unavailable Unavailable RAINA, L SONALI PA Unavailable Unavailable RAINA, L SONALI PA Unavailable Unavailable RAINA, L SONALI PA Unavailable Unavailable RAINA, L SONALI PA Unavailable Unavailable RAINA, L SONALI PA Unavailable Unavailable RAINA, L SONALI PA Unavailable Unavailable RAINA, L SONALI PA Unavailable Unavailable RAINA, L SONALI PA Unavailable Unavailable RAINA, L SONALI PA Unavailable Unavailable RAINA, L SONALI PA Unavailable Unavailable RAINA, L SONALI PA Unavailable Unavailable RAINA, L SONALI PA Unavailable Unavailable RAINA, L SONALI PA Unavailable Unavailable Clinton, V BOBY PA-C Unavailable Unavailable Maria Esther, V BOBY PA-C Unavailable Unavailable Clinton, V BOBY PA-C Unavailable Unavailable Clinton, V BOBY PA-C Unavailable Unavailable Clinton, V BOBY PA-C Unavailable Unavailable Clinton, V BOBY PA-C Unavailable Unavailable Clinton, V BOBY PA-C Unavailable Unavailable Clinton, V BOBY PA-C Unavailable Unavailable Clinton, V BOBY PA-C Unavailable Unavailable Maria Esther, V BOBY PA-C Unavailable Unavailable Clinton, V BOBY PA-C Unavailable Unavailable Maria Esther, V BOBY PA-C Unavailable Unavailable Clinton, V BOBY PA-C Unavailable Unavailable Clinton, V BOBY PA-C Unavailable Unavailable Hsu, W Yajaira RPA-C Unavailable Unavailable Hsu, W Yajaira RPA-C Unavailable Unavailable [facility]su, W Yajaira RPA-C Unavailable Unavailable Hsu, W Yajaira RPA-C Unavailable Unavailable Hsu, W Yajaira RPA-C Unavailable Unavailable Hsu, W Yajaira RPA-C Unavailable Unavailable Hsu, W Yajaira RPA-C Unavailable Unavailable Hsu, W Yajaira RPA-C Unavailable Unavailable Hsu, W Yajaira RPA-C Unavailable Unavailable Hsu, W Yajaira RPA-C Unavailable Unavailable Hsu, W Yajaira RPA-C Unavailable Unavailable Hsu, W Yajaira RPA-C Unavailable Unavailable [facility]su, W Yajaira RPA-C Unavailable Unavailable [facility], W Yajaira RPA-C Unavailable Unavailable [facility], W Yajaira RPA-C Unavailable Unavailable [facility], W Yajaira RPA-C Unavailable Unavailable Hsu, W Yajaira RPA-C Unavailable Unavailable Re-disclosure Warning The records that you are about to access may contain information from federally-assisted alcohol or drug abuse programs. If such information is present, then the following federally mandated warning applies: This information has been disclosed to you from records protected by federal confidentiality rules (42 CFR part 2). The federal rules prohibit you from making any further disclosure of this information unless further disclosure is expressly permitted by the written consent of the person to whom it pertains or as otherwise permitted by 42 CFR part 2. A general authorization for the release of medical or other information is NOT sufficient for this purpose. The Federal rules restrict any use of the information to criminally investigate or prosecute any alcohol or drug abuse patient.The records that you are about to access may contain highly sensitive health information, the redisclosure of which is protected by Article 27-F of the [facility] Public Health law. If you continue you may have access to information: Regarding HIV / AIDS; Provided by facilities licensed or operated by the [facility] Office of Mental Health; or Provided by the [facility] Office for People With Developmental Disabilities. If such information is present, then the following [facility] mandated warning applies: This information has been disclosed to you from confidential records which are protected by state law. State law prohibits you from making any further disclosure of this information without the specific written consent of the person to whom it pertains, or as otherwise permitted by law. Any unauthorized further disclosure in violation of state law may result in a fine or group home sentence or both. A general authorization for the release of medical or other information is NOT sufficient authorization for further disc losure. Family History Family Member Name Family Member Gender Family Member Status Date o f Status Description Data Source(s) Unknown Male Problem MEDENT ([facility] ) Unknown Unknown Problem MEDENT ([facility], ) Encounters Encounter Providers Location Date Indications Data Source(s ) Unknown [address] [facility] [address] [place] [address] 07/12/2021 12:00:00 AM EDT eCW1 ([facility]) Unknown [address] [facility] [address] [place] [address] 07/08/2021 12:00:00 AM EDT eCW1 ([facility]) Unknown [address] [facility] [place] [address] 07/07/2021 12:00:00 AM EDT eCW1 ([facility]) Unknown [address] [facility] [place] [address] 06/29/2021 12:00:00 AM EDT eCW1 ([facility]) Unknown [address] [facility] [id number] 06/28/2021 12:00:00 AM EDT eCW1 ([facility]) Outpatient [email or web address] 06/03/2021 11:46:37 AM EDT [facility] Outpatient [address] [facility] [id number] 05/25/2021 12:00:00 AM EDT eCW1 ([facility]) Emergency Attender: ANTHONY Chandraer: Eva ALVARES ACID REMOVER EMERGENCY ROOM-ER 05/20/2021 02:14:00 PM EDT - 05/20/2021 02:35:00 PM EDT [facility] Patient discharged. Unknown [address] [facility] [address] [address] 05/14/2021 12:00:00 AM EDT eCW1 ([facility]) Outpatient [address] [facility] [id number] 05/11/2021 12:00:00 AM EDT eCW1 ([facility]) (PN Proc 60) Pain Procedure 60 [address] [place] [address] 05/10/2021 12:00:00 AM EDT [facility] [address] [facility] [id number] 05/10/2021 12:00:00 AM EDT eCW1 ([facility]) Unknown [address] [facility] [address] [address] 05/07/2021 12:00:00 AM EDT eCW1 ([facility]) Outpatient Attender: Zari KATE Main office - [facility] 05/06/2021 08:00:00 AM EDT MEDENT ([facility] MIGDALIA galindo) Unknown [address] [facility] [id number] 05/04/2021 12:00:00 AM EDT eCW1 ([facility]) Unknown [address] [facility] [id number] 04/30/2021 12:00:00 AM EDT eCW1 ([facility]) Unknown [address] [facility] [id number] 04/12/2021 12:00:00 AM EDT eCW1 ([facility]) Unknown [address] [facility] [id number] 04/08/2021 12:00:00 AM EDT eCW1 ([facility]) Outpatient [address] [facility] [id number] 04/08/2021 12:00:00 AM EDT eCW1 ([facility]) Unknown [address] [facility] [id number] 04/02/2021 12:00:00 AM EDT eCW1 ([facility]) Outpatient Attender: BOBY TORRES-BRIAN 04/2021 12:00:00 AM EDT - 04/01/2021 01:43:23 PM EDT [facility] Unknown [address] [facility] [id number] 03/26/2021 12:00:00 AM EDT eCW1 ([facility]) (PN Proc 45) Pain Procedure 45 [address] [place] [address] 03/25/2021 12:00:00 AM EDT eCW1 ([facility]) Unknown [address] [facility] [address] 03/09/2021 12:00:00 AM EDT eCW1 ([facility]) Outpatient [address] [facility] [address] 02/26/2021 12:00:00 AM EDT eCW1 ([facility]) Outpatient CT-ANUPAM.HUMA 02/25/2021 12:48:47 PM EDT [facility] Unknown [address] [facility] [address] 02/25/2021 12:00:00 AM EDT eCW1 ([facility]) [place] [address] [facility] [address] 02/16/2021 12:00:00 AM EDT eCW1 ([facility]) Outpatient [address] [facility] [place] [address] 02/16/2021 12:00:00 AM EDT eCW1 ([facility]) [place] [address] [facility] [address] 02/11/2021 12:00:00 AM EDT eCW1 ([facility]) [place] [address] [facility] [address] 02/10/2021 12:00:00 AM EDT eCW1 [facility]) Outpatient Referrer: Zari KATE 01/27/2021 12:00:00 A M EDT Low back pain [facility] Low back pain Unknown [address] [facility] [address] 01/25/2021 12:00:00 AM EDT eCW1 ([facility]) Outpatient Attender: Zari KATE [facility] 01/19/2021 10:45:00 AM EDT MEDENT ([facility] MIGDALIA Garcia) Unknown [address] [facility] [address] 01/14/2021 12:00:00 AM EDT eCW1 ([facility]) Unknown [address] [facility] [address] 01/08/2021 12:00:00 AM EDT eCW1 ([facility]) Outpatient [address] [facility] [place] [address] 01/07/2021 12:00:00 AM EDT eCW1 ([facility]) Outpatient [address] [facility] [place] [address] 12/30/2020 12:00:00 AM EDT eCW1 ([facility]) Unknown [address] [facility] [address] 12/29/2020 12:00:00 AM EDT eCW1 ([facility]) Outpatient P.GINA-SJP 12/16/2020 09:19:29 PM EDT [facility] Unknown [address] [facility] [address] 12/15/2020 12:00:00 AM EDT eCW1 ([facility]) Unknown [address] [facility] [address] 11/20/2020 12:00:00 AM EST eCW1 ([facility]) Outpatient Attender: BOBY Mayo PA-C P.GINA-SJP.GINA 12:00:00 AM EST - 11/19/2020 03:15:17 PM EST [facility] Outpatient P.GINA-SJP.GINA 11/19/2020 12:00:00 AM EST [facility] Unknown [address] [facility] [address] 11/12/2020 12:00:00 AM EST eCW1 ([facility]) Unknown [address] [facility] [address] 10/27/2020 12:00:00 AM EST eCW1 ([facility]) Unknown [address] [facility] [address] 10/27/2020 12:00:00 AM EST eCW1 ([facility]) Office Visit Attender: Zari KATE Main office - [facility] 10/21/2020 11:00:00 AM EST MEDENT ([facility] ) [place] [address] [facility] [address] 10/08/2020 12:00:00 AM EST eCW1 ([facility]) Unknown [address] [facility] [address] 10/08/2020 12:00:00 AM EST eCW1 ([facility]) Outpatient Attender: Helio Tadeo: ALBERT ALVARES NP 10/02/2020 04:30:00 PM [facility] Outpatient [address] [facility] [address] 09/29/2020 12:00:00 AM EST eCW1 ([facility]) Unknown [address] [facility] [address] 09/23/2020 12:00:00 AM EST eCW1 ([facility]) Unknown [address] [facility] [address] 09/16/2020 12:00:00 AM EST eCW1 ([facility]) Unknown [address] [facility] [address] 09/04/2020 12:00:00 AM EST eCW1 ([facility]) Outpatient Attender: BOBY BO.GINA-SJRicGINA 04/2020 12:00:00 AM EST - 09/01/2020 12:01:58 PM EST [facility] Unknown [address] [facility] [address] 09/01/2020 12:00:00 AM EST eCW1 ([facility]) Emergency Attender: LEIGHANN Fountain PAAttender: SONALI Mauricio: ALBERT ALVARES NP EMERGENCY ROOM-ER 08/25/2020 06:47:00 PM EST - 08/25/2020 08:50:00 PM [facility] Patient discharged. Outpatient Attender: LEIGHANN STAHL PAConsultant: [id number] 08/25/2020 06:22:00 PM [facility] Office Visit Attender: Zari KATE Main office - [facility] 08/19/2020 09:45:00 AM EST MEDENT ([facility]) Unknown [address] [facility] [address] 08/18/2020 12:00:00 AM EST eCW1 ([facility]) Outpatient SJP.GINA-SJP 08/13/2020 10:30:12 AM EST [facility] Outpatient SJP.GINA-SJP.GINA 08/13/2020 12:00:00 AM EST [facility] Outpatient Attender: BOBY BO.GINA-SJP.GINA 01/2020 12:00:00 AM EST - 07/30/2020 12:44:02 PM EST [facility] ([facility]) Transition of Care Visit [address] [place] [address] 07/30/2020 12:00:00 AM EST eCW1 ([facility] Unknown [address] [facility], [facility] [address] 07/27/2020 12:00:00 AM EST eCW1 ([facility]) Inpatient Attender: Kai Dahl MDAtt angle: Pauline Hernandez MDAdmitter: Pauline Hernandez MDConsultant: Josie Arana MD [id number] 07/23/2020 08:4 6:24 PM EDT - 07/28/2020 02:41:00 PM [facility] Patient discharged. Emergency Attender: IVORY Preciadoerrer: ASHKAN ALVARES NP EMERGENCY ROOM-ER 07/23/2020 04:11:00 PM EDT - 07/23/2020 06:42:00 PM [facility] Patient discharged. Unknown [address] [facility], [facility] [address] 07/14/2020 12:00:00 AM EDT eCW1 ([facility]) Unknown [address] [facility] [address] 06/26/2020 12:00:00 AM EDT eCW1 ([facility]) Outpatient Attender: Helio LOPEZeferrer: ALBERT ALVARES NP 05/21/2020 01:00:00 PM [facility] Emergency Attender: ANTHONY BAeferrer: Eva ALVARES NP EMERGENCY ROOM-ER 03/23/2019 04:00:00 AM EDT - 03/23/2019 12:15:00 PM [facility] Emergency Attender: Yajaira SHAHID Attender: SONALI Preciadoerrer: ALBERT ALVARES NP EMERGENCY ROOM-ER 03/16/2019 07:20:00 PM EDT - 03/16/2019 09:45:00 PM [facility] Patient discharged. Inpatient Attender: KWAME TAO JR Attender: KWAME TAO JRAdmitter: DERICK Schmitterrer: ALBERT ALVARES ACID REMOVER EMERGENCY ROOM-2N 04/01/2018 12:12:00 AM EDT - 04/01/2018 03:22:00 PM [facility] Emergency Attender: ANTHONY BAeferrer: Eva ALVARES NP EMERGENCY ROOM-ER 12/08/2017 08:00:00 AM EDT - 12/08/2017 11:46:00 AM [facility] Inpatient Attender: LEIGHANN Fountain PAAttender: YAJAIRA MACKAYdmitter: YAJAIRA YOUNGERReferrer: ALBERT ALVARES NP EMERGENCY ROOM-2N 11/08/2017 02:04:00 PM EST - 11/06/2017 11:18:00 AM [facility] Outpatient Attender: ANA LOPEZeferrer: ALBERT Vidal P 04/12/2017 10:38:00 AM [facility] Outpatient Attender: ALBERT ALVARES NPReferrer: CANDE ALVARES ACID REMOVER EMERGENCY ROOM-CT 02/16/2017 08:00:00 AM EDT - 02/16/2017 08:00:00 AM [facility] Emergency Attender: YAJAIRA YOUNGER EMERGENCY ROOM-ER 10/23 10:27:00 AM EST - 10/23/2016 02:26:00 PM [facility] Emergency Attender: LEIGHANN KATE EMERGENCY ROOM- ER 07/26/2016 02:25:00 AM EDT - 07/26/2016 07:23:00 AM [facility] Immunizations Vaccine Date Status Description Data Source(s) COVID-19 dose #2 given elsewhere Unspecified 11/15/2020 04:0 1:00 PM EST completed [facility] ([facility]) COVID-19 dose #2 given elsewhere Unspecified 11/15/2020 04:0 1:00 PM EST completed eCW1 ([facility]) COVID-19 dose #2 given elsewhere Unspecified 11/15/2020 04:0 1:00 PM EST completed eCW1 ([facility]) COVID-19 dose #2 given elsewhere Unspecified 11/15/2020 04:0 1:00 PM EST completed eCW1 ([facility]) COVID-19 dose #2 given elsewhere Unspecified 11/15/2020 04:0 1:00 PM EST completed eCW1 ([facility]) COVID-19 dose #2 given elsewhere Unspecified 11/15/2020 04:0 1:00 PM EST completed eCW1 ([facility]) COVID-19 dose #2 given elsewhere Unspecified 11/15/2020 04:0 1:00 PM EST completed eCW1 ([facility]) COVID-19 dose #2 given elsewhere Unspecified 11/15/2020 04:0 1:00 PM EST completed eCW1 ([facility]) COVID-19 dose #2 given elsewhere Unspecified 11/15/2020 04:0 1:00 PM EST completed eCW1 ([facility]) COVID-19 dose #2 given elsewhere Unspecified 11/15/2020 04:0 1:00 PM EST completed eCW1 ([facility]) COVID-19 dose #2 given elsewhere Unspecified 11/15/2020 04:0 1:00 PM EST completed eCW1 ([facility]) COVID-19 dose #2 given elsewhere Unspecified 11/15/2020 04:0 1:00 PM EST completed eCW1 ([facility]) COVID-19 dose #2 given elsewhere Unspecified 11/15/2020 04:0 1:00 PM EST completed eCW1 ([facility]) COVID-19 dose #2 given elsewhere Unspecified 11/15/2020 04:0 1:00 PM EST completed eCW1 ([facility]) COVID-19 dose #2 given elsewhere Unspecified 11/15/2020 04:0 1:00 PM EST completed eCW1 ([facility]) COVID-19 dose #2 given elsewhere Unspecified 11/15/2020 04:0 1:00 PM EST completed eCW1 ([facility]) COVID-19 dose #2 given elsewhere Unspecified 11/15/2020 04:0 1:00 PM EST completed eCW1 ([facility]) COVID-19 dose #2 given elsewhere Unspecified 11/15/2020 04:0 1:00 PM EST completed eCW1 ([facility]) COVID-19 dose #2 given elsewhere Unspecified 11/15/2020 04:0 1:00 PM EST completed eCW1 ([facility]) COVID-19 dose #2 given elsewhere Unspecified 11/15/2020 04:0 1:00 PM EST completed eCW1 ([facility]) COVID-19 dose #2 given elsewhere Unspecified 11/15/2020 04:0 1:00 PM EST completed eCW1 ([facility]) COVID-19 dose #2 given elsewhere Unspecified 11/15/2020 04:0 1:00 PM EST completed eCW1 ([facility]) COVID-19 dose #2 given elsewhere Unspecified 11/15/2020 04:0 1:00 PM EST completed eCW1 ([facility]) COVID-19 dose #2 given elsewhere Unspecified 11/15/2020 04:0 1:00 PM EST completed eCW1 ([facility]) COVID-19 dose #2 given elsewhere Unspecified 11/15/2020 04:0 1:00 PM EST completed eCW1 ([facility]) COVID-19 dose #2 given elsewhere Unspecified 11/15/2020 04:0 1:00 PM EST completed eCW1 ([facility]) COVID-19 dose #2 given elsewhere Unspecified 11/15/2020 04:0 1:00 PM EST completed eCW1 ([facility]) COVID-19 dose #2 given elsewhere Unspecified 11/15/2020 04:0 1:00 PM EST completed eCW1 ([facility]) COVID-19 dose #2 given elsewhere Unspecified 11/15/2020 04:0 1:00 PM EST completed eCW1 ([facility]) COVID-19 dose #2 given elsewhere Unspecified 11/15/2020 04:0 1:00 PM EST completed eCW1 ([facility]) COVID-19 dose #2 given elsewhere Unspecified 11/15/2020 04:0 1:00 PM EST completed eCW1 ([facility]) COVID-19 VACCINE Pfizer 11/15/2020 12:00:00 AM EST completed [employer] Vaccine Series Complete: YESThis Data wa s Submitted to [facility] Via [employer]. COVID-19 dose #1 given elsewhere Unspecified 10/25/2020 04:0 0:00 PM EST completed eCW1 ([facility]) COVID-19 dose #1 given elsewhere Unspecified 10/25/2020 04:0 0:00 PM EST completed eCW1 ([facility]) COVID-19 dose #1 given elsewhere Unspecified 10/25/2020 04:0 0:00 PM EST completed eCW1 ([facility]) COVID-19 dose #1 given elsewhere Unspecified 10/25/2020 04:0 0:00 PM EST completed eCW1 ([facility]) COVID-19 dose #1 given elsewhere Unspecified 10/25/2020 04:0 0:00 PM EST completed eCW1 ([facility]) COVID-19 dose #1 given elsewhere Unspecified 10/25/2020 04:0 0:00 PM EST completed eCW1 ([facility]) COVID-19 dose #1 given elsewhere Unspecified 10/25/2020 04:0 0:00 PM EST completed eCW1 ([facility]) COVID-19 dose #1 given elsewhere Unspecified 10/25/2020 04:0 0:00 PM EST completed eCW1 ([facility]) COVID-19 dose #1 given elsewhere Unspecified 10/25/2020 04:0 0:00 PM EST completed eCW1 ([facility]) COVID-19 dose #1 given elsewhere Unspecified 10/25/2020 04:0 0:00 PM EST completed eCW1 ([facility]) COVID-19 dose #1 given elsewhere Unspecified 10/25/2020 04:0 0:00 PM EST completed eCW1 ([facility]) COVID-19 dose #1 given elsewhere Unspecified 10/25/2020 04:0 0:00 PM EST completed eCW1 ([facility]) COVID-19 dose #1 given elsewhere Unspecified 10/25/2020 04:0 0:00 PM EST completed eCW1 ([facility]) COVID-19 dose #1 given elsewhere Unspecified 10/25/2020 04:0 0:00 PM EST completed eCW1 ([facility]) COVID-19 dose #1 given elsewhere Unspecified 10/25/2020 04:0 0:00 PM EST completed eCW1 ([facility]) COVID-19 dose #1 given elsewhere Unspecified 10/25/2020 04:0 0:00 PM EST completed eCW1 ([facility]) COVID-19 dose #1 given elsewhere Unspecified 10/25/2020 04:0 0:00 PM EST completed eCW1 ([facility]) COVID-19 dose #1 given elsewhere Unspecified 10/25/2020 04:0 0:00 PM EST completed eCW1 ([facility]) COVID-19 dose #1 given elsewhere Unspecified 10/25/2020 04:0 0:00 PM EST completed eCW1 ([facility]) COVID-19 dose #1 given elsewhere Unspecified 10/25/2020 04:0 0:00 PM EST completed eCW1 ([facility]) COVID-19 dose #1 given elsewhere Unspecified 10/25/2020 04:0 0:00 PM EST completed eCW1 ([facility]) COVID-19 dose #1 given elsewhere Unspecified 10/25/2020 04:0 0:00 PM EST completed eCW1 ([facility]) COVID-19 dose #1 given elsewhere Unspecified 10/25/2020 04:0 0:00 PM EST completed eCW1 ([facility]) COVID-19 dose #1 given elsewhere Unspecified 10/25/2020 04:0 0:00 PM EST completed eCW1 ([facility]) COVID-19 dose #1 given elsewhere Unspecified 10/25/2020 04:0 0:00 PM EST completed eCW1 ([facility]) COVID-19 dose #1 given elsewhere Unspecified 10/25/2020 04:0 0:00 PM EST completed eCW1 ([facility]) COVID-19 dose #1 given elsewhere Unspecified 10/25/2020 04:0 0:00 PM EST completed eCW1 ([facility]) COVID-19 dose #1 given elsewhere Unspecified 10/25/2020 04:0 0:00 PM EST completed eCW1 ([facility]) COVID-19 dose #1 given elsewhere Unspecified 10/25/2020 04:0 0:00 PM EST completed eCW1 ([facility]) COVID-19 dose #1 given elsewhere Unspecified 10/25/2020 04:0 0:00 PM EST completed eCW1 ([facility]) COVID-19 dose #1 given elsewhere Unspecified 10/25/2020 04:0 0:00 PM EST completed eCW1 ([facility]) COVID-19 VACCINE Pfizer 10/25/2020 12:00:00 AM EST completed [employer] Vaccine Series Complete: NOThis Data was Submitted to [facility] Via [employer]. New in 2011. IIV4 07/25/2020 12:00:00 AM EDT completed <t d ID="[id number]">Flu Vaccine =>6MOS Quad Pres-Free</td><td>07/25/2020</td><td></td> [facility] Medications Medication Brand Name Start Date Product Form Dose Route Admi nistrative Instructions Pharmacy Instructions Status Indications Reaction Description Data Source(s) Acetaminophen 325 MG / Hydrocodone Bitartrate 10 MG Or al Tablet 10-325 mg HYDROCODONE/ACETAMINOPHEN 07/09/2021 12:00:00 AM EDT tablet 28 TAKE ONE TABLET BY MOUTH FOUR TIMES A DAY NEEDED FOR PAIN MAXIMUM DAILY DOSE = 4 TAKE ONE TABLET BY MOUTH FOUR TIMES A DAY NEEDED FOR PAIN MAXIMUM DAILY DOSE = 4 SOLD: 07/09/2021 [facility] 75 mg 07/08/2021 12:00:00 AM EDT tablet 90 TAKE ONE TABLET BY MOUTH ONCE DAILY TAKE ONE TABLET BY MOUTH ONCE DAILY SOLD: 07/09/2021 [facility] Acetaminophen 325 MG / Hydrocodone Caryl trate 10 MG Oral Tablet HYDROcodone- Acetaminophen 10-325 MG HYDROcodone-Acetaminophen 10-325 MG 07/08/2021 12:00:0 0 AM EDT 1.0 {tablet_as_needed} active HYDROcodone-Acetaminophen 10- 325 MG eCW1 ([facility]) Acetaminophen 325 MG / Hydrocodone Caryl trate 10 MG Oral Tablet HYDROcodone- Acetaminophen 10-325 MG HYDROcodone-Acetaminophen 10-325 MG 07/08/2021 12:00:0 0 AM EDT 1.0 {tablet_as_needed} active HYDROcodone-Acetaminophen 10- 325 MG eCW1 ([facility]) 30 mg 06/17/2021 12:00:00 AM EDT capsule,delayed release (DR/EC) 180 TAKE ONE CAPSULE BY MOUTH TWO TIMES A DAY MAXIMUM DAILY DOSE = 2 TAKE ONE CAPSULE BY MOUTH TWO TIMES A DAY MAXIMUM DAILY DOSE = 2 SOLD: 06/18/2021 [facility] 62.5 mcg/actuation 06/16/2021 12:00:00 AM EDT blister with d evice 90 INHALE ONE PUFF BY MOUTH EVERY DAY INHALE ONE PUFF BY MOUTH EVERY DAY SOLD: 06/18/2021 [facility] Albuterol 0.833 MG/ML / Ipratropium Brom shashank 0.167 MG/ML Inhalation Solution 0.5 mg-3 mg(2.5 mg base)/3 mL IPRATROPIUM/ALBUTEROL SULFATE 05/20/2021 12:00:00 AM EDT solution for nebulization 90 INHALE THE CONTENTS OF 1 VIAL VIA NEBULIZER TWO TIMES A DAY DIRECTED INHALE THE CONTENTS OF 1 VIAL VIA NEBULI ZER TWO TIMES A DAY DIRECTED SOLD: 05/20/2021 [facility] 20 mg 05/20/2021 12:00:00 AM EDT tablet 14 TAKE TWO TABLETS BY MOUTH ONCE DAILY DIRECTED TAKE TWO TABLETS BY MOUTH ONCE DAILY DIRECTED SOLD: 05/20/2021 [facility] 2.5 mg /3 mL (0.083 %) 05/20/2021 12:00:00 AM EDT solu tion for nebulization 75 INHALE THE CONTENTS OF 1 VIAL VIA NEBULI ZER EVERY 4-6 HOURS DIRECTED INHALE THE CONTENTS OF 1 VIAL VIA NEBULIZER EVERY 4-6 HOURS DIRECTED SOLD: 05/20/2021 [facility] Levofloxacin 500 MG Oral Tablet levoFLOXacin 500 MG levoFLOX acin 500 MG 05/11/2021 12:00:00 AM EDT 1.0 {tablet} active levoFLOXacin 500 MG eCW1 ([facility]) Levofloxacin 500 MG Oral Tablet levoFLOXacin 500 MG levoFLOX acin 500 MG 05/11/2021 12:00:00 AM EDT 1.0 {tablet} suspende d levoFLOXacin 500 MG eCW1 ([facility]) Levofloxacin 500 MG Oral Tablet levoFLOXacin 500 MG levoFLOX acin 500 MG 05/11/2021 12:00:00 AM EDT 1.0 {tablet} active levoFLOXacin 500 MG eCW1 ([facility]) 500 mg 05/11/2021 12:00:00 AM EDT tablet 10 TAKE ONE TABLET BY MOUTH EVERY DAY FOR 10 DAYS TAKE ONE TABLET BY MOUTH EVERY DAY FOR 10 DAYS SOLD: [facility] Levofloxacin 500 MG Oral Tablet levoFLOXacin 500 MG levoFLOX acin 500 MG 05/11/2021 12:00:00 AM EDT 1.0 {tablet} suspende d levoFLOXacin 500 MG eCW1 ([facility]) Levofloxacin 500 MG Oral Tablet levoFLOXacin 500 MG levoFLOX acin 500 MG 05/11/2021 12:00:00 AM EDT 1.0 {tablet} suspende d levoFLOXacin 500 MG eCW1 ([facility]) Levofloxacin 500 MG Oral Tablet levoFLOXacin 500 MG levoFLOX acin 500 MG 05/11/2021 12:00:00 AM EDT 1.0 {tablet} suspende d levoFLOXacin 500 MG eCW1 ([facility]) Levofloxacin 500 MG Oral Tablet levoFLOXacin 500 MG levoFLOX acin 500 MG 05/11/2021 12:00:00 AM EDT 1.0 {tablet} suspende d levoFLOXacin 500 MG eCW1 ([facility]) Levofloxacin 500 MG Oral Tablet levoFLOXacin 500 MG levoFLOX acin 500 MG 05/11/2021 12:00:00 AM EDT 1.0 {tablet} suspende d levoFLOXacin 500 MG eCW1 ([facility]) Levofloxacin 500 MG Oral Tablet levoFLOXacin 500 MG levoFLOX acin 500 MG 05/11/2021 12:00:00 AM EDT 1.0 {tablet} active levoFLOXacin 500 MG eCW1 ([facility]) Metronidazole 500 MG Oral Tablet METRONIDAZOLE 05/07/2021 12:0 0:00 AM EDT tablet 20 TAKE ONE TABLET BY MOUTH TWICE A DAY NEEDED TAKE ONE TABLET BY MOUTH TWICE A DAY NEEDED SOLD: 05/07/2021 [facility] Acetaminophen 325 MG / Hydrocodone Caryl trate 10 MG Oral Tablet HYDROcodone- Acetaminophen 10-325 MG HYDROcodone-Acetaminophen 10-325 MG 05/04/2021 12:00:0 0 AM EDT 1.0 {tablet_as_needed} active HYDROcodone-Acetaminophen 10- 325 MG eCW1 ([facility]) Acetaminophen 325 MG / Hydrocodone Caryl trate 10 MG Oral Tablet HYDROcodone- Acetaminophen 10-325 MG HYDROcodone-Acetaminophen 10-325 MG 05/04/2021 12:00:0 0 AM EDT 1.0 {tablet_as_needed} active HYDROcodone-Acetaminophen 10- 325 MG eCW1 ([facility]) Acetaminophen 325 MG / Hydrocodone Caryl trate 10 MG Oral Tablet HYDROcodone- Acetaminophen 10-325 MG HYDROcodone-Acetaminophen 10-325 MG 05/04/2021 12:00:0 0 AM EDT 1.0 {tablet_as_needed} active HYDROcodone-Acetaminophen 10- 325 MG eCW1 ([facility]) Acetaminophen 325 MG / Hydrocodone Caryl trate 10 MG Oral Tablet HYDROcodone- Acetaminophen 10-325 MG HYDROcodone-Acetaminophen 10-325 MG 05/04/2021 12:00:0 0 AM EDT 1.0 {tablet_as_needed} active HYDROcodone-Acetaminophen 10- 325 MG eCW1 ([facility]) Acetaminophen 325 MG / Hydrocodone Caryl trate 10 MG Oral Tablet HYDROcodone- Acetaminophen 10-325 MG HYDROcodone-Acetaminophen 10-325 MG 05/04/2021 12:00:0 0 AM EDT 1.0 {tablet_as_needed} active HYDROcodone-Acetaminophen 10- 325 MG eCW1 ([facility]) Acetaminophen 325 MG / Hydrocodone Caryl trate 10 MG Oral Tablet HYDROcodone- Acetaminophen 10-325 MG HYDROcodone-Acetaminophen 10-325 MG 05/04/2021 12:00:0 0 AM EDT 1.0 {tablet_as_needed} active HYDROcodone-Acetaminophen 10- 325 MG eCW1 ([facility]) Acetaminophen 325 MG / Hydrocodone Caryl trate 10 MG Oral Tablet HYDROcodone- Acetaminophen 10-325 MG HYDROcodone-Acetaminophen 10-325 MG 05/04/2021 12:00:0 0 AM EDT 1.0 {tablet_as_needed} active HYDROcodone-Acetaminophen 10- 325 MG eCW1 ([facility]) Acetaminophen 325 MG / Hydrocodone Bitartrate 10 MG Or al Tablet 10-325 mg HYDROCODONE/ACETAMINOPHEN 05/04/2021 12:00:00 AM EDT tablet 28 TAKE ONE TABLET BY MOUTH FOUR TIMES A DAY NEEDED FOR PAIN MAXIMUM DAILY DOSE = 4 TAKE ONE TABLET BY MOUTH FOUR TIMES A DAY NEEDED FOR PAIN MAXIMUM DAILY DOSE = 4 SOLD: 05/04/2021 [facility] Acetaminophen 325 MG / Hydrocodone Caryl trate 10 MG Oral Tablet HYDROcodone- Acetaminophen 10-325 MG HYDROcodone-Acetaminophen 10-325 MG 05/04/2021 12:00:0 0 AM EDT 1.0 {tablet_as_needed} active HYDROcodone-Acetaminophen 10- 325 MG eCW1 ([facility]) Acetaminophen 325 MG / Hydrocodone Caryl trate 10 MG Oral Tablet HYDROcodone- Acetaminophen 10-325 MG HYDROcodone-Acetaminophen 10-325 MG 05/04/2021 12:00:0 0 AM EDT 1.0 {tablet_as_needed} active HYDROcodone-Acetaminophen 10- 325 MG eCW1 ([facility]) Acetaminophen 325 MG / Hydrocodone Caryl trate 10 MG Oral Tablet HYDROcodone- Acetaminophen 10-325 MG HYDROcodone-Acetaminophen 10-325 MG 05/04/2021 12:00:0 0 AM EDT 1.0 {tablet_as_needed} active HYDROcodone-Acetaminophen 10- 325 MG eCW1 ([facility]) 25 mg 05/02/2021 12:00:00 AM EDT tablet 45 TAKE ONE-HALF TABLET BY MOUTH EVERY MORNING WITH FOOD TAKE ONE-HALF TABLET BY MOUTH EVERY MORNING WITH FOOD SOLD: 05/04/2021 [facility] 150 mg 04/02/2021 12:00:00 AM EDT capsule 180 TAKE ONE CAPSULE BY MOUTH TWICE A DAY MAXIMUM DAILY DOSE = 2 TAKE ONE CAPSULE BY MOUTH TWICE A DAY MA XIMUM DAILY DOSE = 2 SOLD: 04/04/2021 [facility] Famot[facility] 20 MG Oral Tablet FAMOTIDINE 03/28/2021 12:00:00 AM EDT tab let 60 TAKE ONE TABLET BY MOUTH TWICE A DAY TAKE ONE TABLET BY MOUTH TWICE A DAY SOLD: 06/14/2021 [facility] Famotidine 20 MG Oral Tablet FAMOTIDINE 03/28/2021 12:00:00 AM EDT tab let 60 TAKE ONE TABLET BY MOUTH TWICE A DAY TAKE ONE TABLET BY MOUTH TWICE A DAY SOLD: 04/02/2021 [facility] Acetaminophen 325 MG / Hydrocodone Caryl trate 10 MG Oral Tablet HYDROcodone- Acetaminophen 10-325 MG HYDROcodone-Acetaminophen 10-325 MG 03/09/2021 12:00:0 0 AM EDT 1.0 {tablet_as_needed} active HYDROcodone-Acetaminophen 10- 325 MG eCW1 ([facility]) Acetaminophen 325 MG / Hydrocodone Caryl trate 10 MG Oral Tablet HYDROcodone- Acetaminophen 10-325 MG HYDROcodone-Acetaminophen 10-325 MG 03/09/2021 12:00:0 0 AM EDT 1.0 {tablet_as_needed} suspended HYDROcodone-Acetaminophen 10-325 MG eCW1 ([facility]) Acetaminophen 325 MG / Hydrocodone Caryl trate 10 MG Oral Tablet HYDROcodone- Acetaminophen 10-325 MG HYDROcodone-Acetaminophen 10-325 MG 03/09/2021 12:00:0 0 AM EDT 1.0 {tablet_as_needed} suspended HYDROcodone-Acetaminophen 10-325 MG eCW1 ([facility]) Acetaminophen 325 MG / Hydrocodone Caryl trate 10 MG Oral Tablet HYDROcodone- Acetaminophen 10-325 MG HYDROcodone-Acetaminophen 10-325 MG 03/09/2021 12:00:0 0 AM EDT 1.0 {tablet_as_needed} suspended HYDROcodone-Acetaminophen 10-325 MG eCW1 ([facility]) Acetaminophen 325 MG / Hydrocodone Caryl trate 10 MG Oral Tablet HYDROcodone- Acetaminophen 10-325 MG HYDROcodone-Acetaminophen 10-325 MG 03/09/2021 12:00:0 0 AM EDT 1.0 {tablet_as_needed} suspended HYDROcodone-Acetaminophen 10-325 MG eCW1 ([facility]) Acetaminophen 325 MG / Hydrocodone Caryl trate 10 MG Oral Tablet HYDROcodone- Acetaminophen 10-325 MG HYDROcodone-Acetaminophen 10-325 MG 03/09/2021 12:00:0 0 AM EDT 1.0 {tablet_as_needed} active HYDROcodone-Acetaminophen 10- 325 MG eCW1 ([facility]) Acetaminophen 325 MG / Hydrocodone Caryl trate 10 MG Oral Tablet HYDROcodone- Acetaminophen 10-325 MG HYDROcodone-Acetaminophen 10-325 MG 03/09/2021 12:00:0 0 AM EDT 1.0 {tablet_as_needed} suspended HYDROcodone-Acetaminophen 10-325 MG eCW1 ([facility]) Acetaminophen 325 MG / Hydrocodone Caryl trate 10 MG Oral Tablet HYDROcodone- Acetaminophen 10-325 MG HYDROcodone-Acetaminophen 10-325 MG 03/09/2021 12:00:0 0 AM EDT 1.0 {tablet_as_needed} suspended HYDROcodone-Acetaminophen 10-325 MG eCW1 ([facility]) Acetaminophen 325 MG / Hydrocodone Bitartrate 10 MG Or al Tablet 10-325 mg HYDROCODONE/ACETAMINOPHEN 03/09/2021 12:00:00 AM EDT tablet 28 TAKE ONE TABLET BY MOUTH FOUR TIMES A DAY NEEDED FOR PAIN MAXIMUM DAILY DOSE = 4 TAKE ONE TABLET BY MOUTH FOUR TIMES A DAY NEEDED FOR PAIN MAXIMUM DAILY DOSE = 4 SOLD: 03/09/2021 [facility] Acetaminophen 325 MG / Hydrocodone Caryl trate 10 MG Oral Tablet HYDROcodone- Acetaminophen 10-325 MG HYDROcodone-Acetaminophen 10-325 MG 03/09/2021 12:00:0 0 AM EDT 1.0 {tablet_as_needed} suspended HYDROcodone-Acetaminophen 10-325 MG eCW1 ([facility]) 30 mg 03/09/2021 12:00:00 AM EDT capsule,delayed release (DR/EC) 90 TAKE ONE CAPSULE BY MOUTH EVERY MORNING. MAXIMUM DAILY DOSE = 1CAPSULE TAKE ONE CAPSULE BY MOUTH EVERY MORNING. MAXIMUM DAILY DOSE = 1CAPSULE SOLD: 03/09/2021 [facility] Metronidazole 500 MG Oral Tablet metroNIDAZOLE 500 MG metroN IDAZOLE 500 MG 02/10/2021 12:00:00 AM EDT 1.0 {tablet} active metroNIDAZOLE 500 MG eCW1 ([facility]) Metronidazole 500 MG Oral Tablet Metronidazole 500 MG 2020 12:00:00 AM EDT 1.0 {tablet} active Metronidazo le 500 MG eCW1 ([facility]) Metronidazole 500 MG Oral Tablet metroNIDAZOLE 500 MG metroN IDAZOLE 500 MG 02/10/2021 12:00:00 AM EDT 1.0 {tablet} suspende d metroNIDAZOLE 500 MG eCW1 ([facility]) Metronidazole 500 MG Oral Tablet Metronidazole 500 MG 2020 12:00:00 AM EDT 1.0 {tablet} active Metronidazo le 500 MG eCW1 ([facility]) Metronidazole 500 MG Oral Tablet METRONIDAZOLE 02/10/2021 12:0 0:00 AM EDT tablet 30 TAKE ONE TABLET BY MOUTH THREE T IMES A DAY TAKE ONE TABLET BY MOUTH THREE TIMES A DAY SOLD: 02/10/2021 [facility] Metronidazole 500 MG Oral Tablet metroNIDAZOLE 500 MG metroN IDAZOLE 500 MG 02/10/2021 12:00:00 AM EDT 1.0 {tablet} suspende d metroNIDAZOLE 500 MG eCW1 ([facility]) Metronidazole 500 MG Oral Tablet metroNIDAZOLE 500 MG metroN IDAZOLE 500 MG 02/10/2021 12:00:00 AM EDT 1.0 {tablet} active metroNIDAZOLE 500 MG eCW1 ([facility]) Metronidazole 500 MG Oral Tablet metroNIDAZOLE 500 MG metroN IDAZOLE 500 MG 02/10/2021 12:00:00 AM EDT 1.0 {tablet} suspende d metroNIDAZOLE 500 MG eCW1 ([facility]) Metronidazole 500 MG Oral Tablet metroNIDAZOLE 500 MG metroN IDAZOLE 500 MG 02/10/2021 12:00:00 AM EDT 1.0 {tablet} suspende d metroNIDAZOLE 500 MG eCW1 ([facility]) Metronidazole 500 MG Oral Tablet metroNIDAZOLE 500 MG metroN IDAZOLE 500 MG 02/10/2021 12:00:00 AM EDT 1.0 {tablet} suspende d metroNIDAZOLE 500 MG eCW1 ([facility]) Metronidazole 500 MG Oral Tablet metroNIDAZOLE 500 MG metroN IDAZOLE 500 MG 02/10/2021 12:00:00 AM EDT 1.0 {tablet} active metroNIDAZOLE 500 MG eCW1 ([facility]) Metronidazole 500 MG Oral Tablet metroNIDAZOLE 500 MG metroN IDAZOLE 500 MG 02/10/2021 12:00:00 AM EDT 1.0 {tablet} suspende d metroNIDAZOLE 500 MG eCW1 ([facility]) Metronidazole 500 MG Oral Tablet metroNIDAZOLE 500 MG metroN IDAZOLE 500 MG 02/10/2021 12:00:00 AM EDT 1.0 {tablet} active metroNIDAZOLE 500 MG eCW1 ([facility]) Metronidazole 500 MG Oral Tablet metroNIDAZOLE 500 MG metroN IDAZOLE 500 MG 02/10/2021 12:00:00 AM EDT 1.0 {tablet} active metroNIDAZOLE 500 MG eCW1 ([facility]) Metronidazole 500 MG Oral Tablet metroNIDAZOLE 500 MG metroN IDAZOLE 500 MG 02/10/2021 12:00:00 AM EDT 1.0 {tablet} suspende d metroNIDAZOLE 500 MG eCW1 ([facility]) Metronidazole 500 MG Oral Tablet metroNIDAZOLE 500 MG metroN IDAZOLE 500 MG 02/10/2021 12:00:00 AM EDT 1.0 {tablet} active metroNIDAZOLE 500 MG eCW1 ([facility]) Metronidazole 500 MG Oral Tablet metroNIDAZOLE 500 MG metroN IDAZOLE 500 MG 02/10/2021 12:00:00 AM EDT 1.0 {tablet} suspende d metroNIDAZOLE 500 MG eCW1 ([facility]) Metronidazole 500 MG Oral Tablet metroNIDAZOLE 500 MG metro[facility] IDAZOLE 500 MG 02/10/2021 12:00:00 AM EDT 1.0 {tablet} active metroNIDAZOLE 500 MG eCW1 ([facility]) Metronidazole 500 MG Oral Tablet Metronidazole 500 MG 2020 12:00:00 AM EDT 1.0 {tablet} active Metronidazo le 500 MG eCW1 ([facility]) Metronidazole 500 MG Oral Tablet metroNIDAZOLE 500 MG metroN IDAZOLE 500 MG 02/10/2021 12:00:00 AM EDT 1.0 {tablet} active metroNIDAZOLE 500 MG eCW1 ([facility]) Metronidazole 500 MG Oral Tablet metroNIDAZOLE 500 MG metroN IDAZOLE 500 MG 02/10/2021 12:00:00 AM EDT 1.0 {tablet} active metroNIDAZOLE 500 MG eCW1 ([facility]) Metronidazole 500 MG Oral Tablet Metronidazole 500 MG 2020 12:00:00 AM EDT 1.0 {tablet} active Metronidazo le 500 MG eCW1 ([facility]) Metronidazole 500 MG Oral Tablet metroNIDAZOLE 500 MG metroN IDAZOLE 500 MG 02/10/2021 12:00:00 AM EDT 1.0 {tablet} active metroNIDAZOLE 500 MG eCW1 ([facility]) Metronidazole 500 MG Oral Tablet metroNIDAZOLE 500 MG metroN IDAZOLE 500 MG 02/10/2021 12:00:00 AM EDT 1.0 {tablet} active metroNIDAZOLE 500 MG eCW1 ([facility]) Metronidazole 500 MG Oral Tablet metroNIDAZOLE 500 MG metroN IDAZOLE 500 MG 02/10/2021 12:00:00 AM EDT 1.0 {tablet} active metroNIDAZOLE 500 MG eCW1 ([facility]) Metronidazole 500 MG Oral Tablet metroNIDAZOLE 500 MG metroN IDAZOLE 500 MG 02/10/2021 12:00:00 AM EDT 1.0 {tablet} suspende d metroNIDAZOLE 500 MG eCW1 ([facility]) Metronidazole 500 MG Oral Tablet metroNIDAZOLE 500 MG metroN IDAZOLE 500 MG 02/10/2021 12:00:00 AM EDT 1.0 {tablet} suspende d metroNIDAZOLE 500 MG eCW1 ([facility]) 30 mg 02/07/2021 12:00:00 AM EDT capsule,delayed release (DR/EC) 30 TAKE ONE CAPSULE BY MOUTH EVERY DAY TAKE ONE CAPSULE BY MOUTH EVERY DAY SOLD: 02/09/2021 [facility] duloxetine 30 MG Delayed Release Oral Capsule Duloxetine HCL 02/05/2021 12:00:00 AM EDT ORAL active MEDENT ([facility]) 10 mEq 01/26/2021 12:00:00 AM EDT tablet,ER particles/cry stals 90 TAKE 1 TABLET BY MOUTH ONCE DAILY WITH FOOD TAKE 1 TABLET BY MOUTH ONCE DAILY WITH F OOD SOLD: 01/27/2021 [facility] 10 mEq 01/26/2021 12:00:00 AM EDT tablet,ER particles/cry stals 90 TAKE 1 TABLET BY MOUTH ONCE DAILY WITH FOOD TAKE 1 TABLET BY MOUTH ONCE DAILY WITH F OOD SOLD: 05/04/2021 [facility] 60 mg 01/15/2021 12:00:00 AM EDT tablet extended release 24 hr 90 TAKE ONE TABLET BY MOUTH EVERY MORNING ONCE A DAY TAKE ONE TABLET BY MOUTH EVERY MORNING ONCE A DAY SOLD: 01/17/2021 [facility] 60 mg 01/15/2021 12:00:00 AM EDT tablet extended release 24 hr 90 TAKE ONE TABLET BY MOUTH EVERY MORNING ONCE A DAY TAKE ONE TABLET BY MOUTH EVERY MORNING ONCE A DAY SOLD: 05/04/2021 [facility] Acetaminophen 325 MG / Hydrocodone Caryl trate 10 MG Oral Tablet Hydrocodone- Acetaminophen 10-325 MG Hydrocodone-Acetaminophen 10-325 MG 12/30/2020 12:00:0 0 AM EDT 1.0 {tablet_as_needed} active Hydrocodone-Acetaminophen 10- 325 MG eCW1 ([facility]) 10-325 mg 12/30/2020 12:00:00 AM EDT tablet 28 TAKE 1 TABLET BY MOUTH FOUR TIMES A DAY NEEDED MAXIMUM DAILY DOSE = 4 TABLETS TAKE 1 TABLET BY MOUTH FOUR TIMES A DAY NEEDED MAXIMUM DAILY DOSE = 4 TABLETS SOLD: 12/30/2020 [facility] Acetaminophen 325 MG / Hydrocodone Caryl trate 10 MG Oral Tablet Hydrocodone- Acetaminophen 10-325 MG Hydrocodone-Acetaminophen 10-325 MG 12/30/2020 12:00:0 0 AM EDT 1.0 {tablet_as_needed} active Hydrocodone-Acetaminophen 10- 325 MG eCW1 ([facility]) Acetaminophen 325 MG / Hydrocodone Caryl trate 10 MG Oral Tablet Hydrocodone- Acetaminophen 10-325 MG Hydrocodone-Acetaminophen 10-325 MG 12/30/2020 12:00:0 0 AM EDT 1.0 {tablet_as_needed} active Hydrocodone-Acetaminophen 10- 325 MG eCW1 ([facility]) Acetaminophen 325 MG / Hydrocodone Caryl trate 10 MG Oral Tablet Hydrocodone- Acetaminophen 10-325 MG Hydrocodone-Acetaminophen 10-325 MG 12/30/2020 12:00:0 0 AM EDT 1.0 {tablet_as_needed} active Hydrocodone-Acetaminophen 10- 325 MG eCW1 ([facility]) Acetaminophen 325 MG / Hydrocodone Caryl trate 10 MG Oral Tablet Hydrocodone- Acetaminophen 10-325 MG Hydrocodone-Acetaminophen 10-325 MG 12/30/2020 12:00:0 0 AM EDT 1.0 {tablet_as_needed} active Hydrocodone-Acetaminophen 10- 325 MG eCW1 ([facility]) Acetaminophen 325 MG / Hydrocodone Caryl trate 10 MG Oral Tablet Hydrocodone- Acetaminophen 10-325 MG Hydrocodone-Acetaminophen 10-325 MG 12/30/2020 12:00:0 0 AM EDT 1.0 {tablet_as_needed} active Hydrocodone-Acetaminophen 10- 325 MG eCW1 ([facility]) Acetaminophen 325 MG / Hydrocodone Caryl trate 10 MG Oral Tablet Hydrocodone- Acetaminophen 10-325 MG Hydrocodone-Acetaminophen 10-325 MG 12/30/2020 12:00:0 0 AM EDT 1.0 {tablet_as_needed} active Hydrocodone-Acetaminophen 10- 325 MG eCW1 ([facility]) Acetaminophen 325 MG / Hydrocodone Caryl trate 10 MG Oral Tablet HYDROcodone- Acetaminophen 10-325 MG HYDROcodone-Acetaminophen 10-325 MG 12/30/2020 12:00:0 0 AM EDT 1.0 {tablet_as_needed} active HYDROcodone-Acetaminophen 10- 325 MG eCW1 ([facility]) Acetaminophen 325 MG / Hydrocodone Caryl trate 10 MG Oral Tablet Hydrocodone- Acetaminophen 10-325 MG Hydrocodone-Acetaminophen 10-325 MG 12/30/2020 12:00:0 0 AM EDT 1.0 {tablet_as_needed} active Hydrocodone-Acetaminophen 10- 325 MG eCW1 ([facility]) Acetaminophen 325 MG / Hydrocodone Caryl trate 10 MG Oral Tablet Hydrocodone- Acetaminophen 10-325 MG Hydrocodone-Acetaminophen 10-325 MG 12/30/2020 12:00:0 0 AM EDT 1.0 {tablet_as_needed} active Hydrocodone-Acetaminophen 10- 325 MG eCW1 ([facility]) 150 mg 12/29/2020 12:00:00 AM EDT capsule 174 TAKE 1 CAPSULE BY MOUTH TWO TIMES A DAY MAXIMUM DAILY DOSE = 2 TAKE 1 CAPSULE BY MOUTH TWO TIMES A DAY MAXIMUM DAILY DOSE = 2 SOLD: 12/30/2020 [facility] 150 mg 12/29/2020 12:00:00 AM EDT capsule 6 TAKE 1 CAPSULE BY MOUTH TWO TIMES A DAY MAXIMUM DAILY DOSE = 2 TAKE 1 CAPSULE BY MOUTH TWO TIMES A DAY MAXIMUM DAILY DOSE = 2 SOLD: 12/29/2020 [facility] 62.5 mcg/actuation 12/16/2020 12:00:00 AM EDT blister with d evice 90 INHALE 1 PUFF BY MOUTH ONCE A DAY INHALE 1 PUFF BY MOUTH ONCE A DAY SOLD: 12/17/2020 [facility] 100-25 mcg/dose 12/16/2020 12:00:00 AM EDT blister with lazaro ce 180 INHALE 1 PUFF BY MOUTH ONCE A DAY INHALE 1 PUFF BY MOUTH ONCE A DAY SOLD: 12/17/2020 [facility] Metronidazole 500 MG Oral Tablet METRONIDAZOLE 12/15/2020 12:0 0:00 AM EDT tablet 20 TAKE 1 TABLET BY MOUTH TWO TIMES A DAY NEEDED TAKE 1 TABLET BY MOUTH TWO TIMES A DAY NEEDED SOLD: 12/17/2020 [facility] Citalopram 20 MG Oral Tablet CITALOPRAM HYDROBROMIDE 11/22/2020 12:00:00 AM EST tablet 90 TAKE ONE TABLET BY MOUTH EVERY D AY TAKE ONE TABLET BY MOUTH EVERY DAY SOLD: 11/22/2020 [facility] Citalopram 20 MG Oral Tablet CITALOPRAM HYDROBROMIDE 11/22/2020 12:00:00 AM EST tablet 90 TAKE ONE TABLET BY MOUTH EVERY D AY TAKE ONE TABLET BY MOUTH EVERY DAY SOLD: 03/15/2021 [facility] 5 mg 10/28/2020 12:00:00 AM EST tablet 180 TAKE 1 TABLET BY MOUTH 2 TIMES A DAY TAKE 1 TABLET BY MOUTH 2 TIMES A DAY SOLD: 10/31/2020 [facility] 5 mg 10/28/2020 12:00:00 AM EST tablet 180 TAKE 1 TABLET BY MOUTH 2 TIMES A DAY TAKE 1 TABLET BY MOUTH 2 TIMES A DAY SOLD: 05/09/2021 [facility] Acetaminophen 325 MG / Hydrocodone Caryl trate 10 MG Oral Tablet Hydrocodone- Acetaminophen 10-325 MG Hydrocodone-Acetaminophen 10-325 MG 10/27/2020 12:00:0 0 AM EST 1.0 {tablet_as_needed} active Hydrocodone-Acetaminophen 10- 325 MG eCW1 ([facility]) Acetaminophen 325 MG / Hydrocodone Caryl trate 10 MG Oral Tablet Hydrocodone- Acetaminophen 10-325 MG Hydrocodone-Acetaminophen 10-325 MG 10/27/2020 12:00:0 0 AM EST 1.0 {tablet_as_needed} active Hydrocodone-Acetaminophen 10- 325 MG eCW1 ([facility]) Acetaminophen 325 MG / Hydrocodone Caryl trate 10 MG Oral Tablet Hydrocodone- Acetaminophen 10-325 MG Hydrocodone-Acetaminophen 10-325 MG 10/27/2020 12:00:0 0 AM EST 1.0 {tablet_as_needed} active Hydrocodone-Acetaminophen 10- 325 MG eCW1 ([facility]) Acetaminophen 325 MG / Hydrocodone Caryl trate 10 MG Oral Tablet Hydrocodone- Acetaminophen 10-325 MG Hydrocodone-Acetaminophen 10-325 MG 10/27/2020 12:00:0 0 AM EST 1.0 {tablet_as_needed} active Hydrocodone-Acetaminophen 10- 325 MG eCW1 ([facility]) Acetaminophen 325 MG / Hydrocodone Caryl trate 10 MG Oral Tablet Hydrocodone- Acetaminophen 10-325 MG Hydrocodone-Acetaminophen 10-325 MG 10/27/2020 12:00:0 0 AM EST 1.0 {tablet_as_needed} active Hydrocodone-Acetaminophen 10- 325 MG eCW1 ([facility]) Acetaminophen 325 MG / Hydrocodone Caryl trate 10 MG Oral Tablet Hydrocodone- Acetaminophen 10-325 MG Hydrocodone-Acetaminophen 10-325 MG 10/27/2020 12:00:0 0 AM EST 1.0 {tablet_as_needed} active Hydrocodone-Acetaminophen 10- 325 MG eCW1 ([facility]) 10-325 mg 10/27/2020 12:00:00 AM EST tablet 28 TAKE 1 TABLET BY MOUTH FOUR TIMES A DAY NEEDED MAXIMUM DAILY DOSE = 4 TABLETS TAKE 1 TABLET BY MOUTH FOUR TIMES A DAY NEEDED MAXIMUM DAILY DOSE = 4 TABLETS SOLD: 10/30/2020 [facility] 75 mg 10/09/2020 12:00:00 AM EST tablet 90 TAKE 1 TABLET BY MOUTH ONCE A DAY TAKE 1 TABLET BY MOUTH ONCE A DAY SOLD: 01/17/2021 [facility] 60 mg 10/09/2020 12:00:00 AM EST tablet extended release 24 hr 90 TAKE 1 TABLET BY MOUTH ONCE IN THE MORNING TAKE 1 TABLET BY MOUTH ONCE IN THE MORNING SOLD: 10/11/2020 [facility] 75 mg 10/09/2020 12:00:00 AM EST tablet 90 TAKE 1 TABLET BY MOUTH ONCE A DAY TAKE 1 TABLET BY MOUTH ONCE A DAY SOLD: 10/11/2020 [facility] Lisinopril 5 MG Oral Tablet Lisinopril 5 MG 09/29/2020 12:00:00 AM EST 1.0 {tablet} active Lisinopril 5 MG eCW1 ([facility]) Lisinopril 5 MG Oral Tablet Lisinopril 5 MG 09/29/2020 12:00:00 AM EST 1.0 {tablet} active Lisinopril 5 MG eCW1 ([facility]) Lisinopril 5 MG Oral Tablet Lisinopril 5 MG 09/29/2020 12:00:00 AM EST 1.0 {tablet} active Lisinopril 5 MG eCW1 ([facility]) Lisinopril 5 MG Oral Tablet Lisinopril 5 MG 09/29/2020 12:00:00 AM EST 1.0 {tablet} active Lisinopril 5 MG eCW1 ([facility]) Lisinopril 5 MG Oral Tablet Lisinopril 5 MG 09/29/2020 12:00:00 AM EST 1.0 {tablet} active Lisinopril 5 MG eCW1 ([facility]) Lisinopril 5 MG Oral Tablet Lisinopril 5 MG 09/29/2020 12:00:00 AM EST 1.0 {tablet} active Lisinopril 5 MG eCW1 ([facility]) Lisinopril 5 MG Oral Tablet Lisinopril 5 MG 09/29/2020 12:00:00 AM EST 1.0 {tablet} active Lisinopril 5 MG eCW1 ([facility]) Lisinopril 5 MG Oral Tablet Lisinopril 5 MG 09/29/2020 12:00:00 AM EST 1.0 {tablet} active Lisinopril 5 MG eCW1 ([facility]) Lisinopril 5 MG Oral Tablet Lisinopril 5 MG 09/29/2020 12:00:00 AM EST 1.0 {tablet} active Lisinopril 5 MG eCW1 ([facility]) 5 mg 09/29/2020 12:00:00 AM EST tablet 90 TAKE ONE TABLET BY MOUTH AT BEDTIME TAKE ONE TABLET BY MOUTH AT BEDTIME SOLD: 01/09/2021 [facility] Lisinopril 5 MG Oral Tablet Lisinopril 5 MG 09/29/2020 12:00:00 AM EST 1.0 {tablet} active Lisinopril 5 MG eCW1 ([facility]) Lisinopril 5 MG Oral Tablet Lisinopril 5 MG 09/29/2020 12:00:00 AM EST 1.0 {tablet} active Lisinopril 5 MG eCW1 ([facility]) Lisinopril 5 MG Oral Tablet Lisinopril 5 MG 09/29/2020 12:00:00 AM EST 1.0 {tablet} active Lisinopril 5 MG eCW1 ([facility]) Lisinopril 5 MG Oral Tablet Lisinopril 5 MG 09/29/2020 12:00:00 AM EST 1.0 {tablet} active Lisinopril 5 MG eCW1 ([facility]) Lisinopril 5 MG Oral Tablet Lisinopril 5 MG 09/29/2020 12:00:00 AM EST 1.0 {tablet} active Lisinopril 5 MG eCW1 ([facility]) Lisinopril 5 MG Oral Tablet lisinopril (PRINIVIL,ZESTR IL) 5 MG tablet lisinopril (PRINIVIL,ZESTRIL) 5 MG tablet 09/29/2020 12:00:00 AM EST 5 mg Or al active Take 5 mg by mouth [facility] Lisinopril 5 MG Oral Tablet Lisinopril 5 MG 09/29/2020 12:00:00 AM EST 1.0 {tablet} active Lisinopril 5 MG eCW1 ([facility]) Lisinopril 5 MG Oral Tablet Lisinopril 5 MG 09/29/2020 12:00:00 AM EST 1.0 {tablet} active Lisinopril 5 MG eCW1 ([facility]) Lisinopril 5 MG Oral Tablet Lisinopril 5 MG 09/29/2020 12:00:00 AM EST 1.0 {tablet} active Lisinopril 5 MG eCW1 ([facility]) Lisinopril 5 MG Oral Tablet Lisinopril 5 MG 09/29/2020 12:00:00 AM EST 1.0 {tablet} active Lisinopril 5 MG eCW1 ([facility]) Lisinopril 5 MG Oral Tablet Lisinopril 5 MG 09/29/2020 12:00:00 AM EST 1.0 {tablet} active Lisinopril 5 MG eCW1 ([facility]) Lisinopril 5 MG Oral Tablet Lisinopril 5 MG 09/29/2020 12:00:00 AM EST 1.0 {tablet} active Lisinopril 5 MG eCW1 ([facility]) Lisinopril 5 MG Oral Tablet Lisinopril 5 MG 09/29/2020 12:00:00 AM EST 1.0 {tablet} active Lisinopril 5 MG eCW1 ([facility]) 5 mg 09/29/2020 12:00:00 AM EST tablet 90 TAKE ONE TABLET BY MOUTH AT BEDTIME TAKE ONE TABLET BY MOUTH AT BEDTIME SOLD: 10/02/2020 [facility] Lisinopril 5 MG Oral Tablet Lisinopril 5 MG 09/29/2020 12:00:00 AM EST 1.0 {tablet} active Lisinopril 5 MG eCW1 ([facility]) Lisinopril 5 MG Oral Tablet Lisinopril 5 MG 09/29/2020 12:00:00 AM EST 1.0 {tablet} active Lisinopril 5 MG eCW1 ([facility]) Lisinopril 5 MG Oral Tablet Lisinopril 5 MG 09/29/2020 12:00:00 AM EST 1.0 {tablet} active Lisinopril 5 MG eCW1 ([facility]) Lisinopril 5 MG Oral Tablet Lisinopril 5 MG 09/29/2020 12:00:00 AM EST 1.0 {tablet} active Lisinopril 5 MG eCW1 ([facility]) Lisinopril 5 MG Oral Tablet Lisinopril 5 MG 09/29/2020 12:00:00 AM EST 1.0 {tablet} active Lisinopril 5 MG eCW1 ([facility]) Lisinopril 5 MG Oral Tablet Lisinopril 5 MG 09/29/2020 12:00:00 AM EST 1.0 {tablet} active Lisinopril 5 MG eCW1 ([facility]) Lisinopril 5 MG Oral Tablet Lisinopril 5 MG 09/29/2020 12:00:00 AM EST 1.0 {tablet} active Lisinopril 5 MG eCW1 ([facility]) Lisinopril 5 MG Oral Tablet Lisinopril 5 MG 09/29/2020 12:00:00 AM EST 1.0 {tablet} active Lisinopril 5 MG eCW1 ([facility]) Lisinopril 5 MG Oral Tablet Lisinopril 5 MG 09/29/2020 12:00:00 AM EST 1.0 {tablet} active Lisinopril 5 MG eCW1 ([facility]) Lisinopril 5 MG Oral Tablet Lisinopril 5 MG 09/29/2020 12:00:00 AM EST 1.0 {tablet} active Lisinopril 5 MG eCW1 ([facility]) Lisinopril 5 MG Oral Tablet Lisinopril 5 MG 09/29/2020 12:00:00 AM EST 1.0 {tablet} active Lisinopril 5 MG eCW1 ([facility]) Lisinopril 5 MG Oral Tablet Lisinopril 5 MG 09/29/2020 12:00:00 AM EST 1.0 {tablet} active Lisinopril 5 MG eCW1 ([facility]) Lisinopril 5 MG Oral Tablet Lisinopril 5 MG 09/29/2020 12:00:00 AM EST 1.0 {tablet} active Lisinopril 5 MG eCW1 ([facility]) Lisinopril 5 MG Oral Tablet Lisinopril 5 MG 09/29/2020 12:00:00 AM EST 1.0 {tablet} active Lisinopril 5 MG eCW1 ([facility]) Lisinopril 5 MG Oral Tablet Lisinopril 5 MG 09/29/2020 12:00:00 AM EST 1.0 {tablet} active Lisinopril 5 MG eCW1 ([facility]) Lisinopril 5 MG Oral Tablet Lisinopril 5 MG 09/29/2020 12:00:00 AM EST 1.0 {tablet} active Lisinopril 5 MG eCW1 ([facility]) Lisinopril 5 MG Oral Tablet Lisinopril 5 MG 09/29/2020 12:00:00 AM EST 1.0 {tablet} active Lisinopril 5 MG eCW1 ([facility]) Lisinopril 5 MG Oral Tablet Lisinopril 5 MG 09/29/2020 12:00:00 AM EST 1.0 {tablet} active Lisinopril 5 MG eCW1 ([facility]) 5 mg 09/29/2020 12:00:00 AM EST tablet 90 TAKE ONE TABLET BY MOUTH AT BEDTIME TAKE ONE TABLET BY MOUTH AT BEDTIME SOLD: 05/04/2021 [facility] Lisinopril 5 MG Oral Tablet Lisinopril 5 MG 09/29/2020 12:00:00 AM EST 1.0 {tablet} active Lisinopril 5 MG eCW1 ([facility]) Amlodipine 5 MG Oral Tablet amLODIPine (NORVASC) 5 MG tablet amLODIPine (NORVASC) 5 MG tablet 09/17/2020 12:00:00 AM EST 5 mg Oral aborted Take 5 mg by mouth daily [facility] 5 mg 09/17/2020 12:00:00 AM EST tablet 90 TAKE ONE TABLET BY MOUTH ONCE DAILY TAKE ONE TABLET BY MOUTH ONCE DAILY SOLD: 09/17/2020 [facility] 150 mg 09/15/2020 12:00:00 AM EST capsule 180 TAKE ONE CAPSULE BY MOUTH TWICE A DAY MAXIMUM DAILY DOSE = 2 TAKE ONE CAPSULE BY MOUTH TWICE A DAY MA XIMUM DAILY DOSE = 2 SOLD: 09/17/[address] [facility] 75 mg 09/06/2020 12:00:00 AM EST tablet 30 TAKE ONE TABLET BY MOUTH EVERY DAY TAKE ONE TABLET BY MOUTH EVERY DAY SOLD: 09/08/2020 [facility] 60 mg 09/06/2020 12:00:00 AM EST tablet extended release 24 hr 30 TAKE ONE TABLET BY MOUTH EVERY MORNING TAKE ONE TABLET BY MOUTH EVERY MORNING SOLD: 09/08/2020 [facility] 25 mg 09/02/2020 12:00:00 AM EST tablet 90 TAKE 1/2 TABLET BY MOUTH TWO TIMES A DAY WITH FOOD TAKE 1/2 TABLET BY MOUTH TWO TIMES A DAY WITH FOOD ENRICO [facility] 10 mg 09/02/2020 12:00:00 AM EST tablet 30 TAKE 1 TABLET BY MOUTH ONCE AT BEDTIME NEEDED MAXIMUM DAILY DOSE = 1 TABLET TAKE 1 TABLET BY MOUTH ONCE AT BEDTIME NEEDED MAXIMUM DAILY DOSE = 1 TABLET SOLD: 09/03/2020 [facility] Atenolol 50 MG Oral Tablet ATENOLOL 09/02/2020 12:00:00 AM EST tablet 30 TAKE ONE TABLET BY MOUTH EVERY DAY TAKE ONE TABLET BY MOUTH EVERY DAY SOLD: 09/03/2020 [facility] 25 mg 09/02/2020 12:00:00 AM EST tablet 90 TAKE 1/2 TABLET BY MOUTH TWO TIMES A DAY WITH FOOD TAKE 1/2 TABLET BY MOUTH TWO TIMES A DAY WITH FOOD ENRICO [facility] 25 mg 09/02/2020 12:00:00 AM EST tablet 90 TAKE 1/2 TABLET BY MOUTH TWO TIMES A DAY WITH FOOD TAKE 1/2 TABLET BY MOUTH TWO TIMES A DAY WITH FOOD ENRICO [facility] Atenolol 50 MG Oral Tablet atenolol (TENORMIN) 50 MG t ablet atenolol (TENORMIN) 50 MG tablet 09/01/2020 12:00:00 AM EST 50 mg Oral abort ed Take 1 tablet (50 mg total) by mouth daily [facility] 25 mg 08/19/2020 12:00:00 AM EST tablet 90 TAKE ONE TABLET BY MOUTH EVERY DAY IN THE MORNING WITH FOOD TAKE ONE TABLET BY MOUTH EVERY DAY IN TH E MORNING WITH FOOD SOLD: 11/29/2020 [facility] 25 mg 08/19/2020 12:00:00 AM EST tablet 90 TAKE ONE TABLET BY MOUTH EVERY DAY IN THE MORNING WITH FOOD TAKE ONE TABLET BY MOUTH EVERY DAY IN E MORNING WITH FOOD SOLD: 08/21/2020 [facility] 5 mg 07/28/2020 12:00:00 AM EST tablet 30 TAKE ONE TABLET BY MOUTH EVERY DAY TAKE ONE TABLET BY MOUTH EVERY DAY SOLD: 08/03/2020 [facility] Lisinopril 5 MG Oral Tablet lisinopril (PRINIVIL,ZESTR IL) 5 MG tablet lisinopril (PRINIVIL,ZESTRIL) 5 MG tablet 07/28/2020 12:00:00 AM EST 5 mg Or al active Take 1 tablet (5 mg total) by mo uth daily [facility] 60 mg 07/28/2020 12:00:00 AM EST tablet extended release 24 hr 30 TAKE ONE TABLET BY MOUTH EVERY DAY TAKE ONE TABLET BY MOUTH EVERY DAY SOLD: 08/03/2020 [facility] Melatonin 3 MG Oral Tablet melatonin tablet 3 mg melatonin t ablet 3 mg 07/27/2020 11:00:00 PM EST 3 mg Oral completed 3 mg, Oral, Once, Mon07/27/20 at 2300, For 1 dose [facility] Medication administered onsite sodium chloride 0.9% (NS) infusion [id number] 07/27/2020 03:00:00 P M EST Intravenous completed at 100 mL/hr, Intravenous, Continuous, Starting Mon07/27/20 at 1500, For 5 hours, Post-op [facility] Medication administered onsite Nitroglycerin 0.4 MG Sublingual Tablet n itroglycerin (NITROSTAT) SL tablet 0.4 mg nitroglycerin (NITROSTAT) SL tablet 0.4 mg 07/27/2020 02:25:50 P M EST 0.4 mg Sublingual active 0.4 mg, S ublingual, Every 5 min PRN, chest pain, Starting Mon07/27/20 at 1425, Post-op
May administer every 5 minutes for 3 doses and call cardio lab MD.
[facility] Medication administered onsite clopidogrel 75 MG Oral Tablet clopidogrel (PLAVIX) tab let clopidogrel (PLAVIX) tablet 07/27/2020 12:04:55 PM EST active As needed, Starting Mon07/27/20 at 1204, Intra-Procedure [facility] Medication administered onsite 4 ML Verapamil hydrochloride 2.5 MG/ML Injection verap ninoska (ISOPTIN) injection verapamil (ISOPTIN) injection 07/27/2020 11:31:47 AM EST active As needed, Starting Mon07/27/20 at 1131, Intra-Procedure [facility] Medication administered onsite 1 ML heparin sodium, porcine 1000 UNT/ML Injection hep july (porcine) injection heparin (porcine) injection 07/27/2020 11:31:34 AM EST active As needed, Starting Mon07/27/20 at 1131, Intra-Procedure [facility] Medication administered onsite Lisinopril 5 MG Oral Tablet lisinopril (PRINIVIL,ZESTR IL) tablet 5 mg lisinopril (PRINIVIL,ZESTRIL) tablet 5 mg 07/27/2020 09:00:00 AM EST 5 mg Or al active 5 mg, Oral, Daily, First dose on Mon07/27/20 at 0900 [facility] Medication administered onsite Melatonin 3 MG Oral Tablet melatonin tablet 3 mg melatonin t ablet 3 mg 07/26/2020 11:00:00 PM EST 3 mg Oral completed 3 mg, Oral, Once, 07/26/20 at 2300, For 1 dose [facility] Medication administered onsite normal saline flush 0.9 % injection 3 mL [id number] 07/26/2020 02:00:00 PM EST 3 mL Intravenous active 3 mL , Intravenous, PROTOCOL, First dose on 07/26/20 at 1400, Pre-op
flush per protocol, D/C Main IV fluid if appropriate
[facility] Medication administered onsite normal saline flush 0.9 % injection 3 mL [id number] 07/26/2020 09:00:00 AM EST 3 mL Intravenous active 3 mL , Intravenous, Every 8 hours (scheduled), First dose on 07/26/20 at 0900, Pre-op
Rapid push positive pressure flushing shall be performed with a 10 cc normal saline syringe to check the PATENCY of a PIV site prior to any infusion therapy initiation unless resistance is met.
[facility] Medication administered onsite sodium chloride 0.9% (NS) infusion [id number] 07/26/2020 09:00:00 AM EST 100 mL/h Intravenous active at 100 m L/hr, 100 mL/hr, Intravenous, Continuous, Starting 07/26/20 at 0900, Pre-op
Start two hours prior to scheduled start time
[facility] Medication administered onsite normal saline flush 0.9 % injection 3 mL [id number] 07/26/2020 09:00:00 AM EST 3 mL Intravenous active 3 mL , Intravenous, Every 8 hours (scheduled), First dose on 07/26/20 at 0900, Pre-op
Rapid push positive pressure flushing shall be performed with a 10 cc normal saline syringe to check the PATENCY of a PIV site prior to any infusion therapy initiation unless resistance is met.
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, [place] 07/26/20 at 0900, For 1 dose, Pre-op [facility] Medication administered onsite 24 HR Isosorbide Mononitrate 60 MG Exten ded Release Oral Tablet isosorbide mononitrate (IMDUR) 24 hr tablet 60 mg isosorbide mononitrate (IMDUR) 24 hr tablet 60 mg 07/26/2020 09:00:00 AM EST 60 mg Oral activ e 60 mg, Oral, Daily, First dose on 07/26/20 at 0900 [facility] Medication administered onsite Acetaminophen 325 MG Oral Tablet acetaminophen (TYLENO L) 325 MG tablet 650 mg acetaminophen (TYLENOL) 325 MG tablet 650 mg 07/26/2020 08:36:51 AM EST 650 mg Oral active 650 mg, Or al, Every 4 hours PRN, headaches, and non cardiac pain, Starting 07/26/20 at 0836, Pre-op
"Maximum dose of acetaminophen is 4,000 mg from all sources in 24 hours."
[facility] Medication administered onsite Amlodipine 5 MG Oral Tablet amLODIPine (NORVASC) 5 MG tablet amLODIPine (NORVASC) 5 MG tablet 07/26/2020 12:00:00 AM EDT 5 mg Oral active Take 1 tablet (5 mg total) by mouth daily [facility] 24 HR Isosorbide Mononitrate 60 MG Exten ded Release Oral Tablet isosorbide mononitrate (IMDUR) 60 MG 24 hr tablet isosorbide mononitrate (IMDUR) 60 MG 24 hr tablet 07/26/2020 12:00:00 AM EDT 60 mg Oral active Take 1 tablet (60 mg total) by mouth daily [facility] 24 HR Isosorbide Mononitrate 30 MG Exten ded Release Oral Tablet isosorbide mononitrate (IMDUR) 24 hr tablet 30 mg isosorbide mononitrate (IMDUR) 24 hr tablet 30 mg 07/25/2020 03:00:00 PM EDT 30 mg Oral abort ed 30 mg, Oral, Daily, First dose on 07/25/20 at 1500 [facility] Medication administered onsite Metoprolol Tartrate 25 MG Oral Tablet me toprolol tartrate (LOPRESSOR) tablet 12.5 mg metoprolol tartrate (LOPRESSOR) tablet 12.5 mg 020 10:00:00 AM EDT 12.5 mg Oral active 12.5 mg, Oral, 2 times daily, First dose on 07/25/20 at 1000 [facility] Medication administered onsite Metoprolol Tartrate 25 MG Oral Tablet me toprolol tartrate (LOPRESSOR) 25 MG tablet metoprolol tartrate (LOPRESSOR) 25 MG tablet 07/25/2020 12:0 0:00 AM EDT 12.5 mg Oral active Take 0.5 tablets (12.5 mg total) by mouth 2 (two) times a day [facility] Zolpidem tartrate 5 MG Oral Tablet zolpidem (AMBIEN) t ablet 2.5 mg zolpidem (AMBIEN) tablet 2.5 mg 07/24/2020 10:00:00 PM EDT 2.5 mg Oral completed 2.5 mg, Oral, Once, Mon07/24/20 at 2200, For 1 dose [facility] Medication administered onsite iodixanol (VISIPAQUE) 320 MG/ML injection [id number] 07/24/2020 04:51 :30 PM EDT active As needed, Starting Mon07/24/20 at 1651, Intra-Procedure [facility] Medication administered onsite lidocaine 1 % injection [id number] 07/24/2020 04:50:02 PM EDT active As needed, Starting Mon07/24/20 at 1650, Intra-Procedure [facility] Medication administered onsite Cefazolin 1000 MG Injection ceFAZolin (ANCEF) injectio n ceFAZolin (ANCEF) injection 07/24/2020 04:44:48 PM EDT active As needed, Starting Mon07/24/20 at 1644, Intra-Procedure [facility] Medication administered onsite fentaNYL Citrate (PF) (SUBLIMAZE) injection [id number] 07/24/2020 04:44:32 PM EDT active As neede d, Starting Mon07/24/20 at 1644, Intra-Procedure [facility] Medication administered onsite 2 ML Midazolam 1 MG/ML Injection midazolam (VERSED) in jection midazolam (VERSED) injection 07/24/2020 04:44:24 PM EDT active As needed, Starting Mon07/24/20 at 1644, Intra-Procedure [facility] Medication administered onsite Amlodipine 10 MG Oral Tablet amLODIPine (NORVASC) tabl et 10 mg amLODIPine (NORVASC) tablet 10 mg 07/24/2020 09:00:00 AM EDT 10 mg Oral aborted 10 mg, Oral, Daily, First dose on Mon07/24/20 at 0900 [facility] Medication administered onsite 60 ACTUAT formoterol fumarate 0.005 MG/A CTUAT / mometasone furoate 0.2 MG/ACTUAT Metered Dose Inhaler mometasone-formoterol (DULERA) 200-5 MCG/ACT inhaler 2 puff mometasone-formoterol (DULERA) 200-5 MCG/ACT inhaler 2 puff 07/24/2020 09:00:00 AM EDT 2 {puff} Inhalation active 2 pu ff, Inhalation, Daily, First dose on Mon07/24/20 at 0900 [facility] Medication administered onsite Chlorthalidone 25 MG Oral Tablet chlorthalidone (HYGRO TEN) tablet 25 mg chlorthalidone (HYGROTEN) tablet 25 mg 07/24/2020 09:00:00 AM EDT 2 5 mg Oral aborted 25 mg, Oral, Daily, First dose on Mon07/24/20 at 0900 [facility] Medication administered onsite Lisinopril 20 MG Oral Tablet lisinopril (PRINIVIL,ZEST RIL) tablet 20 mg lisinopril (PRINIVIL,ZESTRIL) tablet 20 mg 07/24/2020 09:00:00 AM EDT 20 mg Oral aborted 20 mg, Oral, Daily, First dose on Mon07/24/20 at 0900 [facility] Medication administered onsite Aspirin 81 MG Delayed Release Oral Tablet aspirin EC t ablet 81 mg aspirin EC tablet 81 mg 07/24/2020 09:00:00 AM EDT 81 mg Oral activ e 81 mg, Oral, Daily, First dose on Mon07/24/20 at 0900 [facility] Medication administered onsite clopidogrel 75 MG Oral Tablet clopidogrel (PLAVIX) tab let 75 mg clopidogrel (PLAVIX) tablet 75 mg 07/24/2020 09:00:00 AM EDT 75 mg Oral active 75 mg, Oral, Daily, First dose on Mon07/24/20 at 0900 [facility] Medication administered onsite Citalopram 20 MG Oral Tablet citalopram (CeleXA) table t 20 mg citalopram (CeleXA) tablet 20 mg 07/24/2020 09:00:00 AM EDT 20 mg Oral active 20 mg, Oral, Daily, First dose on Mon07/24/20 at 0900 [facility] Medication administered onsite Ipratropium [place] 0.2 MG/ML Inhalant S olution ipratropium (ATROVENT) 0.02 % nebulizer solution 0.5 mg ipratropium (ATROVENT) 0.02 % nebulizer solution 0.5 mg 07/24/2020 08:00:00 AM EDT 0.5 mg active 0.5 mg, Nebulization, 4 times daily, First dose on Mon07/24/20 at 0800 [facility] Medication administered onsite Influenza Vac Split Quad injection 0.5 mL [id number] 07/24/2020 0 5:00:00 AM EDT 0.5 mL Intramuscular completed 0.5 mL , Intramuscular, During hospitalization, Mon07/24/20 at 0500, For 1 dose [facility] Medication administered onsite Levetiracetam 500 MG Oral Tablet levETIRAcetam (KEPPRA ) tablet 500 mg levETIRAcetam (KEPPRA) tablet 500 mg 07/24/2020 01:00:00 AM EDT 500 m g Oral active 500 mg, Oral, 2 times daily, First dose on Mon07/24/20 at 0100 [facility] Medication administered onsite heparin (porcine) injection 5,000 Units [id number] 07/24/20 20 12:00:00 AM EDT 5000 U Subcutaneous active 5,000 Units , Subcutaneous, Every 12 hours (scheduled), First dose on Mon07/24/20 at 0000
If platelet count is less than 100,000 or hematocrit is less than 30, or if there is a 5 point decrease in hematocrit, do not give the dose and call physician/designee.
[facility] Medication administered onsite pregabalin 75 MG Oral Capsule pregabalin (LYRICA) caps ule 150 mg pregabalin (LYRICA) capsule 150 mg 07/23/2020 11:00:00 PM EDT 150 mg Oral active 150 mg, Oral, 2 times daily, First dose on Martha 07/23/20 at 2300, For 7 days [facility] Medication administered onsite Famotidine 20 MG Oral Tablet famotidine (PEPCID) table t 20 mg famotidine (PEPCID) tablet 20 mg 07/23/2020 11:00:00 PM EDT 20 mg Oral active 20 mg, Oral, 2 times daily, First dose on Martha 07/23/20 at 2300 [facility] Medication administered onsite Zolpidem tartrate 5 MG Oral Tablet zolpidem (AMBIEN) t ablet 2.5 mg zolpidem (AMBIEN) tablet 2.5 mg 07/23/2020 10:19:39 PM EDT 2.5 mg Oral completed 2.5 mg, Oral, Nightly PRN, sleep, Starting Martha 0 at 2219, For 1 dose [facility] Medication administered onsite Nitroglycerin 0.4 MG Sublingual Tablet n itroglycerin (NITROSTAT) SL tablet 0.4 mg nitroglycerin (NITROSTAT) SL tablet 0.4 mg 07/23/2020 10:17:24 P M EDT 0.4 mg Sublingual aborted 0.4 mg, S ublingual, Every 5 min PRN, chest pain, Starting Martha 07/23/20 at 2217
May administer up to 3 doses per episode.
[facility] Medication administered onsite normal saline flush 0.9 % injection 3 mL [id number] 07/23/2020 10:00:00 PM EDT 3 mL Intravenous aborted 3 mL , Intravenous, Every 8 hours (scheduled), First dose on Martha 07/23/20 at 2200
Rapid push positive pressure flushing shall be performed with a 10 cc normal saline syringe to check the PATENCY of a PIV site prior to any infusion therapy initiation unless resistance is met.
[facility] Medication administered onsite normal saline flush 0.9 % injection 3 mL [id number] 07/23/2020 10:00:00 PM EDT 3 mL Intravenous aborted 3 mL , Intravenous, Every 8 hours (scheduled), First dose on Martha 07/23/20 at 2200
flush per protocol, D/C Main IV fluid if appropriate
[facility] Medication administered onsite ondansetron (ZOFRAN) injection 4 mg [id number] 07/23/2020 08:52:1 8 PM EDT 4 mg Intravenous active 4 mg, In travenous, Every 6 hours PRN, nausea, vomiting, Starting Martha 07/23/20 at 2051 [facility] Medication administered onsite Acetaminophen 325 MG Oral Tablet acetaminophen (TYLENO L) 325 MG tablet 650 mg acetaminophen (TYLENOL) 325 MG tablet 650 mg 07/23/2020 08:52:13 PM EDT 650 mg Oral aborted 650 mg, Or al, Every 8 hours PRN, mild pain (1-3), headaches, Starting Martha 07/23/20 at 2051
"Maximum dose of acetaminophen is 4,000 mg from all sources in 24 hours."
[facility] Medication administered onsite Oxybutynin chloride 5 MG Oral Tablet oxybutynin (DITRO MAN) tablet 5 mg oxybutynin (DITROPAN) tablet 5 mg 07/23/2020 09:00:00 AM EDT 5 mg Oral active 5 mg, Oral, 2 times daily, First dose on Martha 07/23/20 at 0900 [facility] Medication administered onsite 30 ACTUAT fluticasone furoate 0.1 MG/ACT UAT / vilanterol 0.025 MG/ACTUAT Dry Powder Inhaler [Breo] 100-25 mcg/dose FLUTICASONE/VILANTEROL 07/15/2020 12:00 :00 AM EDT blister with device 180 INHALE 1 PUFF BY MOUT H ONCE A DAY INHALE 1 PUFF BY MOUTH ONCE A DAY SOLD: 04/12/2021 [facility] 100-25 mcg/dose 07/15/2020 12:00:00 AM EDT blister with lazaro ce 180 INHALE 1 PUFF BY MOUTH ONCE A DAY INHALE 1 PUFF BY MOUTH ONCE A DAY SOLD: 07/16/2020 [facility] 5-325 mg 07/10/2020 12:00:00 AM EDT tablet 12 TAKE ONE TABLET BY MOUTH EVERY 6 HOURS NEEDED FOR PAIN MAXIMUM DAILY DOSE = 4 TABLETS TAKE ONE TABLET BY MOUTH EVERY 6 HOURS NEEDED FOR PAIN MAXIMUM DAILY DOSE = 4 TABLETS SOLD: 07/13/2020 [facility] 10 mg 06/26/2020 12:00:00 AM EDT tablet 30 TAKE 1 TABLET BY MOUTH AT BEDTIME NEEDED, MAXIMUM DAILY DOSE = 1 TABLET TAKE 1 TABLET BY MOUTH AT BEDTIME NEEDED, MAXIMUM DAILY DOSE = 1 TABLET SOLD: 06/27/2020 [facility] 5-325 mg 06/24/2020 12:00:00 AM EDT tablet 16 TAKE ONE TABLET BY MOUTH EVERY 6 HOURS NEEDED FOR PAIN MAXIMUM DAILY DOSE = 4 TAKE ONE TABLET BY MOUTH EVERY 6 HOURS NEEDED FOR PAIN MAXIMUM DAILY DOSE = 4 SOLD: 06/27/2020 [facility] 150 mg 06/16/2020 12:00:00 AM EDT capsule 180 TAKE 1 CAPSULE BY MOUTH TWO TIMES A DAY MAXIMUM DAILY DOSE = 2 CAPSULES TAKE 1 CAPSULE BY MOUTH TWO TIMES A DAY MAXIMUM DAILY DOSE = 2 CAPSULES SOLD: 06/18/2020 [employer] Metronidazole 500 MG Oral Tablet METRONIDAZOLE 06/16/2020 12:0 0:00 AM EDT tablet 180 TAKE ONE TABLET BY MOUTH TWICE A DAY TAKE ONE TABLET BY MOUTH TWICE A DAY SOLD: 06/18/2020 [facility] 20 mg 06/16/2020 12:00:00 AM EDT tablet 90 TAKE ONE TABLET BY MOUTH EVERY DAY TAKE ONE TABLET BY MOUTH EVERY DAY SOLD: 06/18/2020 [facility] Famotidine 20 MG Oral Tablet FAMOTIDINE 06/11/2020 12:00:00 AM EDT tab let 180 TAKE ONE TABLET BY MOUTH TWICE A DAY TAKE ONE TABLET BY MOUTH TWICE A DAY SOLD: 11/21/2020 [facility] Atenolol 50 MG Oral Tablet ATENOLOL 06/11/2020 12:00:00 AM EDT tablet 90 TAKE ONE TABLET BY MOUTH EVERY DAY TAKE ONE TABLET BY MOUTH EVERY DAY SOLD: 06/15/2020 [facility] Famotidine 20 MG Oral Tablet FAMOTIDINE 06/11/2020 12:00:00 AM EDT tab let 180 TAKE ONE TABLET BY MOUTH TWICE A DAY TAKE ONE TABLET BY MOUTH TWICE A DAY SOLD: 06/15/2020 [facility] 62.5 mcg/actuation 06/11/2020 12:00:00 AM EDT blister with d evice 90 INHALE ONE PUFF BY MOUTH EVERY DAY INHALE ONE PUFF BY MOUTH EVERY DAY SOLD: 06/15/2020 [facility] Citalopram 20 MG Oral Tablet CITALOPRAM HYDROBROMIDE 02/25/2020 12:00:00 AM EDT tablet 90 TAKE ONE TABLET BY MOUTH EVERY D AY TAKE ONE TABLET BY MOUTH EVERY DAY SOLD: 06/18/2020 [facility] 10 mEq 01/13/2020 12:00:00 AM EDT tablet,ER particles/cry stals 90 TAKE ONE TABLET BY MOUTH EVERY DAY TAKE ONE TABLET BY MOUTH EVERY DAY SOLD: 07/16/2020 [facility] 10 mEq 01/13/2020 12:00:00 AM EDT tablet,ER particles/cry stals 90 TAKE ONE TABLET BY MOUTH EVERY DAY TAKE ONE TABLET BY MOUTH EVERY DAY SOLD: 10/19/2020 [employer] Metronidazole 500 MG Oral Tablet METRONIDAZOLE 11/19/2019 12:0 0:00 AM EST tablet 40 TAKE ONE TABLET BY MOUTH EVERY 1 2 HOURS TAKE ONE TABLET BY MOUTH EVERY 12 HOURS SOLD: 05/19/2020 [facility] Docusate Sodium 100 MG Oral Capsule docusate sodium (C OLACE) 100 MG capsule docusate sodium (COLACE) 100 MG capsule 03/26/2019 12:00:00 AM EDT 100 mg Oral aborted Take 1 capsule (100 mg total) by mouth 2 (two) times a day [facility] POLYETHYLENE GLYCOL 3350 142 MG/ML Oral Solution polyethylene glycol (GLYCOLAX) packet polyethylene glycol (GLYCOLAX) packet 03/26/2019 12:00:00 AM EDT 17 g Oral aborted Take 17 g by mouth d aily [facility] LEVETIRACETAM ER PO Oral aborted Ta ke by mouth [facility] Amlodipine 10 MG Oral Tablet amLODIPine (NORVASC) 10 M G tablet amLODIPine (NORVASC) 10 MG tablet 10 mg Oral aborted T dileep 10 mg by mouth daily [facility] Metronidazole 500 MG Oral Tablet metroNIDAZOLE (FLAGYL ) 500 MG tablet metroNIDAZOLE (FLAGYL) 500 MG tablet 500 mg Oral a borted Take 500 mg by mouth 2 (two) times a day [facility] METOPROLOL TARTRATE PO Oral aborted Take by mouth [facility] Lisinopril 20 MG Oral Tablet lisinopril (PRINIVIL,ZEST RIL) 20 MG tablet lisinopril (PRINIVIL,ZESTRIL) 20 MG tablet 20 mg Oral aborted Take 20 mg by mouth daily [facility] Lisinopril 20 MG Oral Tablet lisinopril (PRINIVIL,ZEST RIL) 20 MG tablet lisinopril (PRINIVIL,ZESTRIL) 20 MG tablet 20 mg Oral aborted Take 20 mg by mouth daily [facility] Atenolol 50 MG Oral Tablet atenolol (TENORMIN) 50 MG t ablet atenolol (TENORMIN) 50 MG tablet 50 mg Oral aborted Take 50 mg by mouth daily [facility] Amlodipine 10 MG Oral Tablet amLODIPine (NORVASC) 10 M G tablet amLODIPine (NORVASC) 10 MG tablet 10 mg Oral aborted T dileep 10 mg by mouth daily [facility] 1 ML evolocumab 140 MG/ML Prefilled Syringe Evolocumab (REPATHA) 140 MG/ML SOSY Evolocumab (REPATHA) 140 MG/ML SOSY 140 mg Subcutaneous aborted Inject 140 mg under the skin every 14 (fourteen) days [facility] Insurance Providers Payer name Policy type / Coverage type Policy ID Covered republican ID Covered republican's relationship to najera Policy Najera Plan Information UHC UNITED MEDICARE DUAL G [id number] Self [id number] [facility] [id number] [place] [id number] Self [id number] [place] [id number] Self [id number] [place] [id number] Self [id number] [place] Med[place] [id number] Self [id number] [place] [id number] Self [id number] [facility] DUAL COMPLET [id number] S [id number] [facility] [id number] SP [id number] [facility] DUAL COMPLET [id number] S [id number] [facility] Health Maintenance Organization (HMO) [id number] Self [id number] [facility] MEDICARE DUAL G [id number] Self [id number] [facility] MEDICARE [id number] Rebecca [id number] UNITED [id number] Self [id number] [facility] [id number] SP [id number] [facility] MEDICAID [id number] Rebecca [id number] [facility] MEDICARE [id number] xxxxxxxxx [id number] MEDICAID [id number] xxxxxxxx [id number] MEDICAID [id number] Rebecca [id number] MEDICAID M [id number] Self [id number] MEDICAID [id number] SP [id number] [place] [id number] SP [id number] [facility] ([facility]) Commercial [id number] Self [id number] [facility] ([facility]) Commercial [id number] Self [id number] [facility] DUAL COMPLET [id number] S [id number] MEDICAID [id number] S [id number] MEDICAID [id number] S [id number] [facility] DUAL COMPLET [id number] S [id number] VNA MEDICAID MANAGED I [id number] Self [id number] ANSI-Medicare Part B [id number] [facility]-Medicare Part B [id number] [facility]-Medicare Part B [id number] [facility]-Medicare Part B [id number] MEDICAID [id number] S [id number] [facility] MCRHMO [id number] SP [id number] [facility] DUAL COMPLET [place] [id number] S [id number] [facility] DUAL COMPLET [place] [id number] S [id number] [facility] MEDICAID [id number] SP [id number] [facility] MEDICAID PI PI MEDICAID [id number] SP [id number] [place] Primary [id number] Self [id number] MEDICARE - [place] [id number] S [id number] [facility] [facility] [id number] S [id number] [place] Primary [id number] Self [id number] MEDICAID [id number] S [id number] [place] Primary [id number] Self [id number] [place] Primary [id number] Self [id number] MEDICAID [id number] S [id number] [facility] PLAN MCDO [id number] SP [id number] Medicare [place]/[facility] Medicare Primary [id number] Self [id number] MEDICARE [id number] SP [id number] [facility] MEDICARE [place] [id number] S [id number] [place] MEDICARE COMPLETE - O/P [id number] 18 [id number] Medicare [facility] Medicare Primary [id number] Self MEDICARE COMPLETE [id number] SP [id number] MEDICAID [id number] Retired [id number] [facility] MEDICARE [id number] Retired [id number] MEDICAID M [id number] S [id number] [facility] O [id number] S [id number] Medicaid [place] Medigap Part B [id number] Self [id number] Problems, Conditions, and Diagnoses Code Display Name Description Problem Type Effective Dates Data Source(s) Z20.822 CONTACT WITH AND (SUSPECTED) EXPOSURE TO COVID-19 CONTACT WITH AND (SUSPECTED) EXPOSURE TO COVID-19 Diagnosis 05/20/2021 02:14:00 PM [facility] Z79.899 Other terminal 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 (current) 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 (CURRENT) DRUG THERAPY Diagnosis 05/20/2021 02:14:00 PM [facility] l Z79.02 FDC (current) use of antithromboti cs/antiplatelets SHELTER (CURRENT) USE OF ANTITHROMBOTICS/ANTIPLA Diagnosis 05/20/2021 02:14:00 PM [facility] Z79.82 FDC (current) use of aspirin PRINCIPAL ASSOCIATE (CU RRENT) USE OF ASPIRIN Diagnosis 05/20/2021 02:14:00 PM [facility] Z87.891 Personal history of nicotine dependence PERSONAL HISTORY OF NICOTINE DEPENDENCE Diagnosis 05/20/2021 02:14:00 PM [facility] l J42 Unspecified chronic bronchitis UNSPECIFIED CHRONIC BRO NCHITIS Diagnosis 05/20/2021 02:14:00 PM [facility] I10 Essential (primary) hypertension ESSENTIAL (PRIMARY) H YPERTENSION Diagnosis 05/20/2021 02:14:00 PM [facility] R51.9 HEADACHE, UNSPECIFIED HEADACHE, UNSPECIFIED Diagnosis 05/20/2021 02:14:00 PM [facility] J43.9 Emphysema, unspecified EMPHYSEMA, UNSPECIFIED Diagnosi s 05/20/2021 02:14:00 PM [facility] R06.00 Dyspnea, unspecified DYSPNEA, UNSPECIFIED Diagnosis 05/20/2021 02:14:00 PM [facility] R00.1 Bradycardia, unspecified Bradycardia, unspecified Diag nosis 04/01/2021 12:59:07 PM EDT [facility] I27.20 Pulmonary hypertension, unspecified Pulmonary hy pertension, unspecified Diagnosis 04/01/2021 12:59:07 PM EDT [facility] I10 Essential (primary) hypertension Essential (primary) h ypertension Diagnosis 04/01/2021 12:59:07 PM EDT [facility] I34.2 Nonrheumatic mitral (valve) stenosis Nonrheumati c mitral (valve) stenosis Diagnosis 04/01/2021 12:59:07 PM EDT [facility] E78.2 Mixed hyperlipidemia Mixed hyperlipidemia Diagnosis 04/01/2021 12:59:07 PM EDT [facility] I25.10 Atherosclerotic heart diseas e of [place] coronary artery without angina pectoris Atherosclerotic heart disease of [place] Diagnosis 04/01/2021 12:59:07 PM EDT [facility] R20.2 Paresthesia of skin Paresthesia of skin Diagnosis 0 01/27/2021 11:30:16 AM [facility] M79.604 Pain in right leg Pain in right leg Diagnosis 01/27 11:30:16 AM [facility] M54.5 Low back pain Low back pain Diagnosis 01/27/2021 11:30:16 AM [facility] R00.2 Palpitations Palpitations Diagnosis 11/19/2020 02:49:15 P M EST [facility] 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 OCCLUSION AND STENOSIS OF BILATERAL VERTEBRAL MONTY Diagnosis 10/02/2020 03:30:00 PM [facility] R42 Dizziness and giddiness DIZZINESS AND GIDDINESS Diagno sis 10/02/2020 03:30:00 PM [facility] I25.10 Atherosclerotic heart diseas e of [place] coronary artery without angina pectoris ATHSCL HEART DISEASE OF [place] CORONARY ARTERY W/O ANG PCTRS Diagnosis 10/02/2020 03:30:00 PM [facility] I70.8 Atherosclerosis of other arteries ATHEROSCLEROSI S OF OTHER ARTERIES Diagnosis 10/02/2020 03:30:00 PM [facility] Z95.0 Presence of cardiac pacemaker PRESENCE OF CARDIAC PACE MAKER Diagnosis 08/25/2020 06:47:00 PM [facility] Z95.1 Presence of aortocoronary bypass graft P RESENCE OF AORTOCORONARY BYPASS GRAFT Diagnosis 08/25/2020 06:47:00 PM [facility] Z95.5 Presence of coronary angioplasty implant and graft PRESENCE OF CORONARY ANGIOPLASTY IMPLANT AND GRAFT Diagnosis 08/25/2020 06:47:00 PM [facility] 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 of opiate analge sic SHELTER (CURRENT) USE OF OPIATE ANALGESIC Diagnosis 08/25/2020 06:47:00 PM [facility] J44.9 Chronic obstructive pulmonary disease, u nspecified CHRONIC OBSTRUCTIVE PULMONARY DISEASE, UNSPECIFIED Diagnosis 08/25/2020 06:47:00 PM [facility] R00.2 Palpitations PALPITATIONS Diagnosis 08/25/2020 06:47:00 P M [facility] I20.9 Angina pectoris, unspecified Angina pectoris, unspecif ied Diagnosis 07/23/2020 08:46:24 PM EDT [facility] R07.9 Chest pain, unspecified Chest pain, unspecified Diagno sis [facility] FDC (current) use of inhaled stero ids SHELTER (CURRENT) USE OF INHALED STEROIDS Diagnosis 07/23/2020 04:11:00 PM [facility] Z79.01 FDC (current) use of anticoagulant s SHELTER (CURRENT) USE OF ANTICOAGULANTS Diagnosis 07/23/2020 04:11:00 PM [facility] Z20.828 Contact with and (suspected) exposure to other viral communicable diseases CONTACT W AND EXPOSURE TO OTH VIRAL COMMUNICABLE D Diagnosis 07/23/2020 04:11:00 PM [facility] I25.2 Old myocardial infarction OLD MYOCARDIAL INFARCTION Di agnosis 07/23/2020 04:11:00 PM [facility] R07.89 Other chest pain OTHER CHEST PAIN Diagnosis 07/23/2020 04 :11:00 PM [facility] R07.9 Chest pain, unspecified CHEST PAIN, UNSPECIFIED Diagno sis 07/23/2020 04:11:00 PM [facility] Z78.0 Asymptomatic menopausal state ASYMPTOMATIC MENOPAUSAL STATE Diagnosis 05/21/2020 01:00:00 PM [facility] M85.89 Other specified disorders of bone densit y and structure, multiple sites OTH DISRD OF BONE DENSITY AND STRUCTURE, MULTIPLE SITES Diagnosis 05/21/2020 01:00:00 PM [facility] I10 [id number] Primary hypertension Problem 05/25/2021 12:0 0:00 AM EDT eCW1 ([facility]) G89.29 Chronic pain Other chronic pain Problem 04/07/2021 12:0 0:00 AM EDT eCW1 ([facility]) M89.49 [id number] Primary osteoarthritis involving multiple joints Problem 01/07/2021 12:00:00 AM EDT eCW1 ([facility]) M05.79 [id number] Rheumatoid arthritis involving multiple sites with positive rheumatoid factor Problem 12/30/2020 12:00:00 AM EDT eCW1 ([facility]) I25.10 [id number] Arteriosclerotic cardiovascular disease ( ASCVD) Problem 09/29/2020 12:00:00 AM EST eCW1 ([facility]) Z95.0 [id number] Status post cardiac pacemaker procedure P roblem 09/29/2020 12:00:00 AM EST eCW1 ([facility]) 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 Pr oblem 07/30/2020 12:00:00 AM EST eCW1 ([facility]) Z95.5 [id number] S/P coronary artery stent placement Probl em 07/30/2020 12:00:00 AM EST eCW1 ([facility]) Z98.890 [id number] History of stent insertion of renal arter y Problem 07/30/2020 12:00:00 AM EST eCW1 ([facility]) J44.9 [id number] COPD (chronic obstru ctive pulmonary disease) case management patient Problem 07/30/2020 12:00:00 AM EST eCW1 ([facility]) Z87.19 [id number] History of diverticulitis Problem 07/30/2020 12:00:00 AM EST eCW1 ([facility]) Z99.81 [id number] Dependence on supplemental oxygen Problem 07/30/2020 12:00:00 AM EST eC ([facility]) R00.1 Symptomatic bradycardia Symptomatic bradycardia [id number] 07/30/2020 12:00:00 AM EST [facility] K57.90 Diverticulosis Diverticulosis [id number] 07/24/2020 12:00: 00 AM EDT [facility] R56.9 Seizure Seizure [id number] 07/24/2020 12:00:00 AM ED T [facility] I51.7 Cardiomegaly Cardiomegaly [id number] 07/23/2020 12:00:00 A M EDT [facility] K21.9 Gastroesophageal reflux disease Gastroesophageal reflu x disease [id number] 07/23/2020 12:00:00 AM EDT [facility] I27.20 Pulmonary hypertension Pulmonary hypertension [id number] 07/23/2020 12:00:00 AM EDT [facility] G47.33 TODD (obstructive sleep apnea) TODD (obstructive sleep a pnea) [id number] 07/23/2020 12:00:00 AM EDT [facility] G62.9 Neuropathy Neuropathy [id number] 07/23/2020 12:00:00 AM ED T [facility] J44.9 COPD (chronic obstructive pulmonary dise ase) COPD (chronic obstructive pulmonary disease) [id number] 07/23/2020 12:00:00 AM EDT [facility] Z99.81 Supplemental oxygen dependent Supplemental oxygen depe ndent [id number] 07/23/2020 12:00:00 AM EDT [facility] 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 [id number] 07/23/2020 12:00:00 AM ED T [facility] I20.9 Angina pectoris Angina pectoris [id number] 07/23/2020 12:0 0:00 AM EDT [facility] Z98.890 History of stent insertion of renal monty ry History of stent insertion of renal artery [id number] 07/23/2020 12:00:00 AM EDT [facility] R00.1 Bradycardia Bradycardia [id number] 07/23/2020 12:00:00 AM EDT [facility] Surgeries/Procedures Procedure Description Date Indications Data Source(s) OFFICE OUTPATIENT VISIT 25 MINUTES 05/06/2021 12:00:00 AM EDT MEDENT ([facility] ) Pain Procedure Log 04/08/2021 12:00:00 AM EDT eCW1 ([facility]) Medication: [place] Tablet 5mg/325mg Orally (Hydrocodone/Aceta minophen) 03/25/2021 12:00:00 AM EDT [facility] Unclassified drugs 03/25/2021 12:00:00 AM EDT eCW1 ([facility]) Completion of procedural visit when meets criteria 03/25/2021 12:00:00 AM EDT eCW1 ([facility]) Needle electromyography, each extremity, with related paraspinal areas, when performed, done with nerve conduction, amplitude and latency/velocity study; complete, five or more muscles studied, innervated by three or more nerves or four or more spinal levels (list separately in addition to the code for primary procedure). 02/01/2021 12:00:00 AM EDT MEDEN T ([facility], ) Needle electromyography, each extremity, with related paraspinal areas, when performed, done with nerve conduction, amplitude and latency/velocity study; complete, five or more muscles studied, innervated by three or more nerves or four or more spinal levels (list separately in addition to the code for primary procedure). 02/01/2021 12:00:00 AM EDT MEDEN T ([facility]) [id number] Nerve conduction studies 13 or more studies NEW 201202/01/2021 12:00:00 AM EDT [facility] ([facility]) OFFICE OUTPATIENT VISIT 25 MINUTES 01/19/2021 12:00:00 AM EDT [facility] ([facility]) ECG ROUTINE ECG W/LEAST 12 LDS W/I&R <td>POCT AMB EKG</td><td>Routine</td><td>09/01/2020 2:11 PM EST</td><td> Coronary artery disease involving [place] heart without angina pectoris, unspecified vessel or lesion type</td><td> </td> 09/01/2020 07:11:00 PM EST Coronary artery disease involving [place] heart without angina pectoris, unspecified vessel or lesion type [facility] Coronary artery disease involving [place] heart without angina pectoris, unspecified vessel or lesion type BLOOD COUNT COMPLETE AUTOMATED <td>CBC</td><td>Routine </td><td>07/28/2020 5:43 AM EST</td><td></td><td> </td> 07/28/2020 10:43:00 AM EST [facility] BASIC METABOLIC PANEL CALCIUM TOTAL <td>BASIC METABOLI C PANEL</td><td>Routine</td><td>07/28/2020 5:43 AM EST</td><td></td><td> </td> 07/28/2020 10:43:00 AM EST [facility] ECG ROUTINE ECG W/LEAST 12 LDS TRCG ONLY W/O I&R <td>E CG 12- LEAD</td><td>Routine</td><td>07/28/2020 3:08 AM EST</td><td></td><td></td> 07/28/2020 08:08:09 AM EST [facility] CARDIAC CATHETERIZATION <td>CARDIAC CATHETERIZATION</td><td>Routine</td><td>07/27/2020 11:58 AM EST</td><td> Angina pectoris</td><td> </td> 07/27/2020 04:58:30 PM EST Angina pectoris [facility] Angina pectoris BLOOD COUNT COMPLETE AUTOMATED <td>CBC</td><td>Routine </td><td>07/27/2020 4:15 AM EST</td><td></td><td> </td> 07/27/2020 09:15:00 AM EST [facility] BASIC METABOLIC PANEL CALCIUM TOTAL <td>BASIC METABOLI C PANEL</td><td>Routine</td><td>07/27/2020 4:15 AM EST</td><td></td><td> </td> 07/27/2020 09:15:00 AM EST [facility] ECG ROUTINE ECG W/LEAST 12 LDS W/I&R <td>ECG 12- LEAD</td><td>Routine</td><td>07/27/2020 3:29 AM EST</td><td></td><td></td> 07/27/2020 08:29:33 AM EST [facility] THROMBOPLASTIN TIME PARTIAL PLASMA/WHOLE BLOOD <td>APTT</td><td>Routine</td><td>07/26/2020 10:35 AM EST</td><td></td><td> </td> 07/26/2020 03:35:00 PM EST [facility] PROTHROMBIN TIME <td>PROTIME-INR</td><td>Rout ine</td><td>07/26/2020 10:35 AM EST</td><td></td><td> </td> 07/26/2020 03:35:00 PM EST [facility] BLOOD COUNT COMPLETE AUTOMATED <td>CBC</td><td>Routine </td><td>07/26/2020 6:06 AM EST</td><td></td><td> </td> 07/26/2020 11:06:00 AM EST [facility] BASIC METABOLIC PANEL CALCIUM TOTAL <td>BASIC METABOLI C PANEL</td><td>Routine</td><td>07/26/2020 6:06 AM EST</td><td></td><td> </td> 07/26/2020 11:06:00 AM EST [facility] ECG ROUTINE ECG W/LEAST 12 LDS TRCG ONLY W/O I&R <td>E CG 12- LEAD</td><td>Routine</td><td>07/26/2020 4:44 AM EST</td><td></td><td></td> 07/26/2020 09:44:46 AM EST [facility] TROPONIN QUANTITATIVE <td>TROPONIN I</td><td>STAT< /td><td>07/25/2020 3:22 PM EDT</td><td></td><td> </td> 07/25/2020 07:22:00 PM EDT [facility] ECG ROUTINE ECG W/LEAST 12 LDS TRCG ONLY W/O I&R <td>E CG 12- LEAD</td><td>Routine</td><td>07/25/2020 12:48 PM EDT</td><td></td><td></td> 07/25/2020 04:48:59 PM EDT [facility] ECG ROUTINE ECG W/LEAST 12 LDS TRCG ONLY W/O I&R <td>E CG 12- LEAD</td><td>Routine</td><td>07/25/2020 9:04 AM EDT</td><td></td><td></td> 07/25/2020 01:04:54 PM EDT [facility] BLOOD COUNT COMPLETE AUTOMATED <td>CBC</td><td>Timed</ td><td>07/25/2020 7:11 AM EDT</td><td></td><td> </td> 07/25/2020 11:11:00 AM EDT [facility] BASIC METABOLIC PANEL CALCIUM TOTAL <td>BASIC METABOLI C PANEL</td><td>Timed</td><td>07/25/2020 7:11 AM EDT</td><td></td><td> </td> 07/25/2020 11:11:00 AM EDT [facility] XR CHEST PORTABLE <td>XR CHEST PORTABLE</td><t d>STAT</td><td>07/24/2020 7:08 PM EDT</td><td></td><td> </td> 07/24/2020 11:08:54 PM EDT [facility] EP STUDY <td>EP STUDY</td><td>Routine </td><td>07/24/2020 5:55 PM EDT</td><td> Bradycardia</td><td> </td> 07/24/2020 09:55:02 PM EDT Bradycardia [facility] Bradycardia BLOOD COUNT COMPLETE AUTOMATED <td>CBC</td><td>Timed</ td><td>07/24/2020 4:12 AM EDT</td><td></td><td> </td> 07/24/2020 08:12:00 AM EDT [facility] BASIC METABOLIC PANEL CALCIUM TOTAL <td>BASIC METABOLI C PANEL</td><td>Timed</td><td>07/24/2020 4:12 AM EDT</td><td></td><td> </td> 07/24/2020 08:12:00 AM EDT [facility] TROPONIN QUANTITATIVE <td>TROPONIN I</td><td>Timed </td><td>07/23/2020 11:55 PM EDT</td><td></td><td> </td> 07/24/2020 03:55:00 AM EDT [facility] XR CHEST PORTABLE <td>XR CHEST PORTABLE</td><t d>Routine</td><td>07/23/2020 10:03 PM EDT</td><td></td><td> </td> 07/24/2020 02:03:46 AM EDT [facility] HEMOGLOBIN GLYCOSYLATED A1C <td>HEMOGLOBIN A1C</td><td>Routine</td><td>07/23/2020 9:08 PM EDT</td><td></td><td> </td> 07/24/2020 01:08:00 AM EDT [facility] NT PRO BNP <td>NT PRO BNP</td><td>Routi ne</td><td>07/23/2020 9:07 PM EDT</td><td></td><td> </td> 07/24/2020 01:07:00 AM EDT [facility] TROPONIN QUANTITATIVE <td>TROPONIN I</td><td>Timed </td><td>07/23/2020 9:07 PM EDT</td><td></td><td> </td> 07/24/2020 01:07:00 AM EDT [facility] THROMBOPLASTIN TIME PARTIAL PLASMA/WHOLE BLOOD <td>APTT</td><td>Routine</td><td>07/23/2020 9:07 PM EDT</td><td></td><td> </td> 07/24/2020 01:07:00 AM EDT [facility] PROTHROMBIN TIME <td>PROTIME-INR</td><td>Rout ine</td><td>07/23/2020 9:07 PM EDT</td><td></td><td> </td> 07/24/2020 01:07:00 AM EDT [facility] BLOOD COUNT COMPLETE AUTO&AUTO DIFRNTL WBC COUNT <td>C BC AND DIFFERENTIAL</td><td>Routine</td><td>07/23/2020 9:07 PM EDT</td><td></td><td> </td> 07/24/2020 01:07:00 AM EDT [facility] BLOOD TYPING ABO <td>TYPE AND SCREEN</td><td> Routine</td><td>07/23/2020 9:07 PM EDT</td><td></td><td> </td> 07/24/2020 01:07:00 AM EDT [facility] THYROID STIMULATING HORMONE TSH <td>TSH</td><td>Routin e</td><td>07/23/2020 9:07 PM EDT</td><td></td><td> </td> 07/24/2020 01:07:00 AM EDT [facility] MAGNESIUM <td>MAGNESIUM</td><td>Routin e</td><td>07/23/2020 9:07 PM EDT</td><td></td><td> </td> 07/24/2020 01:07:00 AM EDT [facility] LIPID PANEL <td>LIPID PANEL</td><td>Rout ine</td><td>07/23/2020 9:07 PM EDT</td><td></td><td> </td> 07/24/2020 01:07:00 AM EDT [facility] COMPREHENSIVE METABOLIC PANEL <td>COMPREHENSIVE METABO LIC PANEL</td><td>STAT</td><td>07/23/2020 9:07 PM EDT</td><td></td><td> </td> 07/24/2020 01:07:00 AM EDT [facility] ECG ROUTINE ECG W/LEAST 12 LDS TRCG ONLY W/O I&R <td>E CG 12- LEAD</td><td>Routine</td><td>07/23/2020 8:50 PM EDT</td><td></td><td></td> 07/24/2020 12:50:25 AM EDT [facility] Results ID Date Data Source [id number] 05/20/2021 06:56:00 PM EDT [facility] Patient: FLORA MIJARES [facility]ation [facility] - [facility].VisitID: [id number] [place] [address] [phone], FRegistration Date/Time: 05/20/2021 11:40 Weight:65.7 kg (S). Height/Length:61 inches (S). BMI:27.4 FAMILY HISTORYNo significant family medical history. (Electronically signed by Anthony Odom P.A. 05/20/2021 18:40) Name Value Range Interpretation Code Description Data Ximena rce(s) Supporting Document(s) ID Date Data Source [id number] 05/20/2021 01:42:00 PM EDT [facility] DATE OF EXAMINATION: 05/20/2021 11:56 EDT CHEST 2 VIEWS HISTORY: Cough TECHNIQUE: PA and lateral radiographs of the chest COMPARISON: 08/25/2020 FINDINGS: Heart is in upper limits of normal. Mild COPD and interstitial parenchymalscarring is seen. Coronary arterial stents are seen. Patient is status postmedian sternotomy. There is no airspace disease or effusion. However, there is interstitial prominence which may represent of interstitialedema or possible atypical/viral/interstitial pneumonia. IMPRESSION: Newly developed borderline cardiomegaly. Newly developed interstitial markingswith a fine reti culonodular pattern may be customer counter representative of interstitial edema.Atypical/viral pneumonia is not excluded. Electronically signed in [id number] by: Ant Perez M.D. 05/20/2021 13:36 EDT Name Value Range Interpretation Code Description Data Ximena rce(s) Supporting Document(s) ID Date Data Source [id number] 05/20/2021 01:05:00 PM [facility] [id number] Name Value Range Interpretation Code Description Data Ximena rce(s) Supporting Document(s) MAGNESIUM 2.0 mg/dL 1.8-2.4 [facility] ID Date Data Source [id number] 05/20/2021 01:05:00 PM EDT [facility] l TSYSORDER [id number] Name Value Range Interpretation Code Description Data Ximena rce(s) Supporting Document(s) TROPONIN-HIGH SENSITIVITY 25.7 ng/L 0-60.4 [facility] ID Date Data Source [id number] 05/20/2021 01:05:00 PM EDT [facility] l TSYSORDER [id number] R [id number] Name Value Range Interpretation Code Description Data Ximena rce(s) Supporting Document(s) GLUCOSE 109 mg/dL 74-106 H [facility] BLOOD UREA NITROGEN 25 mg/dL 7-18 H [facility] ital CREATININE 0.69 mg/dL 0.6-1.0 [facility] SODIUM 142 mmol/L 136-145 [facility] POTASSIUM 3.7 mmol/L 3.5-5.1 [facility] CHLORIDE 105 mmol/L 98-107 [facility] CO2 30 mmol/L 21-32 [facility] CALCIUM 8.3 mg/dL 8.5-10.1 L [facility] ANION GAP 7.0 mmol/L 5-12 [facility] GLOMERULAR FILTRATION RATE 82 mL/min [facility] GFR IS CALCULATED IN mL/min/1.73m2 AGNIESZKA L FUNCTION: >90MILDLY DECREASED: 60-89MILDY TO MODERATELY DECREASED: 45-59 MODERATELY TO SEVERELY DECREASED: 30-44SEVERELY DECREASED: 15-29RENAL FAILURE: <15 AST 23 U/L 15-37 [facility] ALT 31 U/L 12-78 [facility] ALKALINE PHOSPHATASE 95 U/L 46-116 [facility] TOTAL BILIRUBIN 0.5 mg/dL 0.2-1.0 [facility] TOTAL PROTEIN 6.3 g/dl 6.4-8.2 L [facility] ALBUMIN 3.1 gm/dL 3.4-5.0 L [facility] ID Date Data Source [id number] 05/20/2021 12:44:00 PM EDT [facility] TSYSORDER [id number] Name Value Range Interpretation Code Description Data Ximena rce(s) Supporting Document(s) WHITE BLOOD COUNT 8.4 K/mm3 4.0-10.0 [facility] al RED BLOOD COUNT 4.17 M/mm3 4.00-5.50 [facility] HEMOGLOBIN 12.1 gm/dL 12.0-16.0 [facility] HEMATOCRIT 36.6 % 36.0-48.8 [facility] MEAN CELL VOLUME 87.8 fl 80-96 [facility] MEAN CORPUSCULAR HEMOGLOBIN 29.0 pg 27.0-31.0 [facility] MEAN CORPUSCULAR HGB CONC 33.1 g/dl 32.0-36.0 [facility] RED CELL DISTRIBUTION WIDTH 15.3 % 10.0-14.5 H [facility] PLATELET COUNT 248 K/mm3 172-450 [facility] MEAN PLATELET VOLUME 9.7 fl 9.0-13.0 [facility]AN % 76.3 % 50-80.0 [facility] IG% 0.5 % 0.0-0.2 H [facility] LYMPH % 11.1 % 25.0-50.0 L [facility] MONO % 10.6 % 2.0-10.0 H [facility] EOS % 1.4 % 0-5.0 [facility] BASO % 0.1 % 0.0-2.0 [facility] GRAN # 6.4 K/mm3 2.0-8.00 [facility] IG# 0.0 K/mm3 0.0-0.2 [facility] LYMPH # 0.9 K/mm3 1.0-5.0 L [facility] MONO # 0.9 K/mm3 0.10-1.20 [facility] EOS # 0.1 K/mm3 0.0-0.5 [facility] BASO # 0.0 K/mm3 0.0-0.2 [facility] ID Date Data Source [id number] 05/20/2021 12:43:00 PM EDT [facility] l TSYSORDER [id number] Name Value Range Interpretation Code Description Data Ximena rce(s) Supporting Document(s) PH 7.35 7.31-7.41 [facility] VENOUS PCO2 51.8 mmHg 41-51 H [facility] VENOUS PO2 37 mmHg 35-42 [facility] VENOUS BLODD O2 SATURATION 58.0 % 68-77 L [facility] VENOUS BLOOD HCO3 27.7 meq/L 24.0-25.0 [facility] BASE EXCESS 1.8 -3.0-3.0 [facility] VENOUS BLOOD CO2 29.3 mmol/L 23.0-32.0 [facility] ID Date Data Source [id number] 05/20/2021 12:55:00 PM EDT [facility] TSYSORDER [id number] Name Value Range Interpretation Code Description Data Ximena rce(s) Supporting Document(s) URINE RBC 0-2 /hpf 0-3 [facility] URINE WBC 1-3 /hpf 0-5 [facility] URINE EPITHELIAL CELLS 1+ /hpf 0 [facility]ital URINE BACTERIA TRACE NONE SEEN H [facility] ID Date Data Source [id number] 05/20/2021 12:54:00 PM EDT [facility] ital TSYSORDER [id number] Name Value Range Interpretation Code Description Data Ximena rce(s) Supporting Document(s) URINE COLOR. YELLOW [facility] URINE APPEARANCE CLEAR [facility] l URINE GLUCOSE (UA) NEGATIVE mg/dL NEGATIVE [facility] URINE BILIRUBIN NEGATIVE NEGATIVE [facility] URINE KETONE NEGATIVE mg/dL NEGATIVE [facility] al SPECIFIC GRAVITY,URINE 1.020 1.005-1.030 [facility] URINE BLOOD NEGATIVE NEGATIVE [facility] PH,URINE 7.0 5.0-9.0 [facility] URINE PROTEIN NEGATIVE mg/dL [facility]IVE [facility] UROBILINOGEN NORMAL(0.2-1) mg/dL 0-1 [facility] URINE NITRATE NEGATIVE NEGATIVE [facility] URINE LEUKOCYTE ESTERASE TRACE NEGATIVE H [facility] ID Date Data Source [id number] 05/20/2021 11:52:00 AM EDT [facility] Name Value Range Interpretation Code Description Data Ximena rce(s) Supporting Document(s) SARS COV2 TRP Not Detected [facility] This lab was ordered by [facility] and reported by [facility]. ID Date Data Source [id number] 05/20/2021 01:11:00 PM EDT [facility] [id number] Name Value Range Interpretation Code Description Data Ximena rce(s) Supporting Document(s) Adenovirus Not Detected Detected Not [facility] Coronavirus 229E Not Detected Detected Not [facility] Coronavirus HKU1 Not Detected Detected Not [facility] Coronavirus NL63 Not Detected Detected Not [facility] Coronavirus OC43 Not Detected Detected Not [facility] Sars Cov 2 Not Detected Detected Not [facility] Negative results do not preclude SARS-Co V-2 infection andshould not be used as the sole basis for treatment or otherpatient management decisions. Negative SARS-CoV-2 resultsmust be combined with clinical observations, patienthistory, and epidemiological information. Human Metapneumovirus Not Detected Detected Not [facility] Human Rhinovirus Not Detected Detected Not [facility] Influenza A Not Detected Detected [facility] Influenza B Not Detected Detected [facility] Parainfluenza Virus 1 Not Detected Detected Not [facility] Parainfluenza Virus 2 Not Detected Detected Not [facility] Parainfluenza Virus 3 Not Detected Detected Not [facility] Parainfluenza Virus 4 Not Detected Detected Not [facility] Respiratory Syncytial Virus Not Detected Detected Not [facility] Bordetella parapertus ([id number]) Not Detected Detected Not [facility] Bordetella pertussis (ptxP) Not Detected Detected Not [facility] Chlamydia pneumoniae Not Detected Detected Not [facility] Mycoplasma pneumoniae Not Detected Detected [facility] The results of the respiratory panel andrea uld notbe used as the sole basis for diagnosis, treatmentor other patient management decisions.Negative results in the setting of a respiratoryillness may be due to infection with pathogens that are not detected by this test,or lower respiratorytract infection that may not be detected by a nasopharyngeal swab specimen.Positive results do not rule out co-infection with other organisms: the agent(s) detected by the FilmArrayRP2 may not be the definite cause of disease. Additional Laboratory testing may be necessary when evaluating a patient with possible respiratory tract infection.The Above results have been determined by using the [employer] FilmArray system.FilmArray is an automated in vitro diagnostic system thatutilizes nested multiplex Polymerase Chain Reaction (PCR)and high-resolution melting analysis to detect and identifymultiple nucleic acid targets from clinical specimens. ID Date Data Source GASTROINTESTINAL GI PANEL (GIPANEL) 05/12/2021 12:00:00 AM EDT eCW1 ([facility]) Name Value Range Interpretation Code Description Data Ximena rce(s) Supporting Document(s) This Gastrointestinal PCR Panel detects the following bacteria, GASTROINTESTINAL (GI) PANEL eCW1 ([facility]) ID Date Data Source CBC with Auto Differential 05/11/2021 12:00:00 AM EDT eCW1 ( [facility]) Name Value Range Interpretation Code Description Data Ximena rce(s) Supporting Document(s) 7.1 4.0-10.0 WHITE BLOOD COUNT eCW1 ([facility]) 39.4 36.0-47.0 HEMATOCRIT eCW1 ([facility]) 4.36 4.00-5.40 RED BLOOD COUNT eCW1 (formerly [facility]) 12.5 12.0-15.5 HEMOGLOBIN eCW1 ([facility]) 28.7 27.0-33.0 MEAN CORPUSCULAR HEMOGLOB IN eCW1 ([facility]) 90.4 80.0-96.0 MEAN CORPUSCULAR VOLUME e CW1 ([facility]) 31.7 32.0-36.5 MEAN CORPUSCULAR HGB CONC eCW1 ([facility]) 14.8 11.5-14.5 RED CELL DISTRIBUTION WID TH eCW1 ([facility]) 250 150-450 PLATELET COUNT, AUTOMATED eCW1 ([facility]) 66.6 36.0-66.0 NEUTROPHILS % eCW1 ([facility]) 18.5 24.0-44.0 LYMPH % eCW1 ([facility]) 0.6 0-3.0 IMMATURE GRANULOCYTE % eCW1 ([facility]) 1.4 0.0-3.0 EOS % eCW1 ([facility]) 12.3 2.0-8.0 MONO % eCW1 ([facility]) 0.6 0.0-1.0 BASO % eCW1 ([facility]) 4.7 1.5-8.5 NEUTROPHILS # eCW1 ([facility]) 0.0 0-0 NUCLEATED RED BLOOD CELL % eCW 1 ([facility]) 1.3 1.5-5.0 LYMPH # eCW1 ([facility]) 0.1 0.0-0.5 EOS # eCW1 ([facility]) 0.0 0.0-0.2 BASO # eCW1 ([facility]) 0.9 0.0-0.8 MONO # eCW1 ([facility]) ID Date Data Source MAGNESIUM LEVEL 05/11/2021 12:00:00 AM EDT eCW1 ([facility]) Name Value Range Interpretation Code Description Data Ximena rce(s) Supporting Document(s) 1.9 1.8-2.4 MAGNESIUM LEVEL eCW1 (formerly [facility]) ID Date Data Source FREE T4 & TSH PANEL 05/11/2021 12:00:00 AM EDT eCW1 ([facility]) Name Value Range Interpretation Code Description Data Ximena rce(s) Supporting Document(s) 2.400 0.358-3.740 THYROID STIMULATING HORM ONE eCW1 ([facility]) 0.93 0.76-1.46 FREE T4 eCW1 ([facility]) ID Date Data Source Comprehensive Metabolic Profile (CMP) 05/11/2021 12:00:00 AM EDT eCW1 ([facility]) Name Value Range Interpretation Code Description Data Ximena rce(s) Supporting Document(s) 91 70-100 GLUCOSE, FASTING eCW1 ([facility]) 0.68 0.55-1.30 CREATININE FOR GFR eCW1 ([facility]) 23 7-18 BLOOD UREA NITROGEN eCW1 ([facility]) 4.8 3.5-5.1 POTASSIUM SERUM eCW1 (formerly [facility]) > 60.0 >39 GLOMERULAR FILTRATION RATE eCW 1 ([facility]) 139 136-145 SODIUM LEVEL eCW1 ([facility]) 29 21-32 CARBON DIOXIDE LEVEL eCW1 (Former[facility]) 105 98-107 CHLORIDE LEVEL eCW1 ([facility]) 7.9 8.8-10.2 CALCIUM LEVEL eCW1 ([facility]) 29 7-37 AST/SGOT eCW1 ([facility]) 34 12-78 ALT/SGPT eCW1 ([facility]) 0.3 0.2-1.0 BILIRUBIN,TOTAL eCW1 (formerly [facility]) 139 45-117 ALKALINE PHOSPHATASE eCW1 ([facility]) 6.0 6.4-8.2 TOTAL PROTEIN eCW1 ([facility]) 1.3 1.2-2.2 ALBUMIN/GLOBULIN RATIO eCW1 ([facility]) 3.4 3.2-5.2 ALBUMIN eCW1 ([facility]) ID Date Data Source [id number] 03/20/2021 11:00:00 AM EDT [facility] Name Value Range Interpretation Code Description Data Ximena rce(s) Supporting Document(s) SARS-CoV-2 (COVID-19) RNA [Presence] in Respiratory specimen by GELY with probe detection Not Detected [facility] This lab was ordered by [facility] and reported by [employer]. ID Date Data Source [id number] 01/27/2021 03:49:07 PM EDT [facility] MR LUMBAR SPINE WITHOUT CONTRAST [id number] NAL RESULTInterpreted by:Hiro Fischer MDEXAMINATION: MR LUMBAR SPINE WITHOUT CONTRAST [id number] - PARESTHESIA OF SKIN, RIGHT LEG PAIN, LOW BACK PAIN, UNSPECICLINICAL INDICATION: Paresthesia of skin, Right leg pain, Low back pain, unspecified back pain laterality, unspecified chronicity, unspecified whether sciatica present.Technique: Axial and sagittal T1 and T2-weighted, and sagittal STIR images of the lumbar spine were obtained without intravenous contrast administration.COMPARISON: None at our institution at the time of this dictation.FINDINGS: For the purpose of counting the vertebrae, the lowest complete intervertebral disc space is designated L5-S1. Normal lumbar lordotic curvature visualized. The vertebral body heights are preserved. Mild to moderate disc height loss visualized at L4-L5. Trace retrolisthesis of L2 on L3. Grade 1 anterolisthesis of L3 on L4. Trace retrolisthesis of L4 on L5. The vertebral body marrow signal is within normal limits.The conus medullaris terminates at L1-L2. There are no intradural or extradural masses. T12-L1: Mild disc bulge visualized, the central canal is patent. Mild bilateral facet arthropathy visua lized, the bilateral neuroforamina are patent.L1- L2: Mild disc bulge visualized flattening the ventral aspect of the thecal sac, the central canal is patent. Moderate bilateral facet arthropathy visualized, the bilateral neuroforamina are patent.L2-L3: Mild disc bulge visualized flattening the ventral aspect of the thecal sac, there is mild ligamentum flavum thickening, the central canal is patent. There is mild narrowing of the right neuroforamina, the left is patent.L3-L4: Disc pseudobulge secondary to grade 1 anterolisthesis of L3 on L4 contributing to moderate central canal narrowing. Marked bilateral facet arthropathy, right greater than left with ligamentum flavum thickening is visualized. There is mild left and moderate right neuroforaminal narrowing.L4- L5: Mild disc bulge visualized with ligamentum flavum thickening, there is mild central canal narrowing. Moderate bilateral facet arthropathy visualized, right greater than left. There is severe left and mild to moderate right neuroforami nal narrowing and probable impingement of the left exiting L4 nerve root.L5-S1: There is a left foraminal zone disc protrusion with superimposed disc bulge visualized, the central canal is patent. Marked bilateral facet arthropathy visualized with severe left and moderate right neuroforaminal narrowing and probable impingement of the left exiting L5 nerve root. T2 hyperintense lesion within the right renal cortex, renal ultrasound may be done to further evaluate.IMPRESSION:1. Mild to moderate central canal narrowing visualized from L3-L4 through L4-L5 and most severe at L3-L4 secondary to degenerative changes.2. Multilevel neuroforaminal compromise with impingement as described above.3. Multilevel facet arthropathy.4. Trace retrolisthesis of L2 on L3 and L4 on L5, grade 1 anterolisthesis of L3 on L4.This document has been electronically signed by Vidhi Carrillo MD on 01/27/2021 3:46 PM Name Value Range Interpretation Code Description Data Ximena rce(s) Supporting Document(s) ID Date Data Source [facility] Foot, complete 01/09/2021 12:00:00 AM EDT eCW1 ([facility]) Name Value Range Interpretation Code Description Data Ximena rce(s) Supporting Document(s) [facility] Foot, complete eCW1 ([facility]) ID Date Data Source [facility] Chest, 2 view (PA\\Lat) 01/09/2021 12:00:00 AM EDT eCW1 ( [facility]) Name Value Range Interpretation Code Description Data Ximena rce(s) Supporting Document(s) [facility] Chest, 2 view (PA\\Lat) eCW 1 ([facility]) ID Date Data Source [facility] Hand, complete 01/09/2021 12:00:00 AM EDT eCW1 ([facility]) Name Value Range Interpretation Code Description Data Ximena rce(s) Supporting Document(s) [facility] Hand, complete eCW1 ([facility]) ID Date Data Source CYCLIC CITRULLINATED PEPTIDE 01/07/2021 12:00:00 AM EDT eCW1 ([facility]) Name Value Range Interpretation Code Description Data Ximena rce(s) Supporting Document(s) 3 0-19 CYCLIC CITRULLINATED PEPTIDE e CW1 ([facility]) ID Date Data Source VITAMIN D 1,25 DIHYDROXY 01/07/2021 12:00:00 AM EDT eCW1 ([facility]) Name Value Range Interpretation Code Description Data Ximena rce(s) Supporting Document(s) 49.5 19.9-79.3 VITAMIN D 1,25 DIHYDROXY eCW1 ([facility]) ID Date Data Source Hepatitis B Surf AB Quant 01/07/2021 12:00:00 AM EDT eCW1 ([facility]) Name Value Range Interpretation Code Description Data Ximena rce(s) Supporting Document(s) <3.1 Immunity>9.9 HEPATITIS B SURF AB LUDIVINA NT eCW1 ([facility]) ID Date Data Source ANTI-SJOGRENS A&B ANTIBODIES 01/07/2021 12:00:00 AM EDT eCW1 ([facility]) Name Value Range Interpretation Code Description Data Ximena rce(s) Supporting Document(s) <0.2 0.0-0.9 SSA SJOGRENS A eCW1 ([facility]) <0.2 0.0-0.9 SSB SJOGRENS B eCW1 ([facility]) ID Date Data Source HEPATITIS B CORE ANTIBODY IGG 01/07/2021 12:00:00 AM EDT eCW 1 ([facility]) Name Value Range Interpretation Code Description Data Ximena rce(s) Supporting Document(s) Negative Negative HEPATITIS B CORE ANTIBODY IGG eCW1 ([facility]) ID Date Data Source ANTI DOUBLE STRAND DNA ADDIE 01/07/2021 12:00:00 AM EDT eCW1 ( [facility]) Name Value Range Interpretation Code Description Data Ximena rce(s) Supporting Document(s) ANTI DOUBLE STRAND DNA ADDIE eCW 1 ([facility]) ID Date Data Source ANTI GERALD EXTRACTABLE NUCLEAR A 01/07/2021 12:00:00 AM EDT eC W1 ([facility]) Name Value Range Interpretation Code Description Data Ximena rce(s) Supporting Document(s) < 0.2 0.0-0.9 SMITHS ANTIBODY eCW1 (formerly [facility]) < 0.2 0.0-0.9 UTILITY ENGINEER ANTIBODY eCW1 ([facility]) ID Date Data Source ANGIOTENSIN 1 CONVERTING ENZYM 01/07/2021 12:00:00 AM EDT eC W1 ([facility]) Name Value Range Interpretation Code Description Data Ximena rce(s) Supporting Document(s) 18 14-82 ANGIOTENSIN 1 CONVERTING ENZYM eCW1 ([facility]) ID Date Data Source ANCA Panel with MPO & PR3 01/07/2021 12:00:00 AM EDT eCW1 ([facility]) Name Value Range Interpretation Code Description Data Ximena rce(s) Supporting Document(s) Myeloperoxidase Ab [Units/volume] in Serum <9.0 0.0-9.0 Antimyeloperxidase(MPO) Abs eCW1 ([facility]) Proteinase 3 Ab [Units/volume] in Serum <3.5 0.0-3.5 Antiproteinase 3 (VT-3) Abs eCW1 ([facility]) Neutrophil cytoplasmic Ab.classic [Titer] in Serum by Immuno fluorescence <1:20 Neg:<1:20 Cytoplasmic (C-ANCA) [facility] Neutrophil Cytoplasmic Ab atypical [Presence] in Serum by Immunofluorescence <1:20 Neg:<1:20 Atypical pANCA eCW1 ([facility]) Neutrophil cytoplasmic Ab.perinuclear [Titer] in Serum by Immunofluorescence <1:20 Neg:<1:20 Perinuclear (P-ANCA) eCW1 ([facility]) ID Date Data Source VITAMIN D 25-HYDROXY 01/07/2021 12:00:00 AM EDT eCW1 ([facility]) Name Value Range Interpretation Code Description Data Ximena rce(s) Supporting Document(s) 42.5 30.0-100.0 TOTAL 25(OH) VITAMIN D eC W1 ([facility]) ID Date Data Source HEPATITIS C ANTIBODY INDEX 01/07/2021 12:00:00 AM EDT eCW1 ( [facility]) Name Value Range Interpretation Code Description Data Ximena rce(s) Supporting Document(s) < 0.0 <0.8 HEPATITIS C VIRUS ADDIE IND EX eCW1 ([facility]) ID Date Data Source ERYTHROCYTE SEDIMENTATION RATE 01/07/2021 12:00:00 AM EDT eC W1 ([facility]) Name Value Range Interpretation Code Description Data Ximena rce(s) Supporting Document(s) 23 0-20 ERYTHROCYTE SEDIMENTATION RATE eCW1 ([facility]) ID Date Data Source C REACTIVE PROTEIN QUANTITATIV (At [facility]) 01/07/2021 12:00 :00 AM EDT eCW1 ([facility]) Name Value Range Interpretation Code Description Data Ximena rce(s) Supporting Document(s) 0.30 0.00-0.30 C REACTIVE PROTEIN QUANTI TATIV eCW1 ([facility]) ID Date Data Source CBC with Differential 01/07/2021 12:00:00 AM EDT eCW1 ([facility]) Name Value Range Interpretation Code Description Data Ximena rce(s) Supporting Document(s) 5.6 4.0-10.0 WHITE BLOOD COUNT eCW1 ([facility]) 36.4 42.0-52.0 HEMATOCRIT eCW1 ([facility]) 11.5 13.5-17.5 HEMOGLOBIN eCW1 ([facility]) 4.00 4.30-6.10 RED BLOOD COUNT eCW1 (formerly [facility]) 31.6 32.0-36.5 MEAN CORPUSCULAR HGB CONC eCW1 ([facility]) 28.8 27.0-33.0 MEAN CORPUSCULAR HEMOGLOB IN eCW1 ([facility]) 91.0 80.0-96.0 MEAN CORPUSCULAR VOLUME e CW1 ([facility]) 62.1 36.0-66.0 NEUTROPHILS % eCW1 ([facility]) 15.1 11.5-14.5 RED CELL DISTRIBUTION WID TH eCW1 ([facility]) 264 150-450 PLATELET COUNT, AUTOMATED eCW1 ([facility]) 1.6 0.0-3.0 EOS % eCW1 ([facility]) 22.2 24.0-44.0 LYMPH % eCW1 ([facility]) 13.2 2.0-8.0 MONO % eCW1 ([facility]) 3.5 1.5-8.5 NEUTROPHILS # eCW1 ([facility]) 0.5 0.0-1.0 BASO % eCW1 ([facility]) 1.2 1.5-5.0 LYMPH # eCW1 ([facility]) 0.1 0.0-0.5 EOS # eCW1 ([facility]) 0.7 0.0-0.8 MONO # eCW1 ([facility]) 0.0 0.0-0.2 BASO # eCW1 ([facility]) ID Date Data Source [id number] 12/16/2020 09:16:10 PM EDT [facility] Name Value Range Interpretation Code Description Data Ximena rce(s) Supporting Document(s) &PDF [facility] [id number] pYy [file] [id number]== ID Date Data Source [id number] 10/29/2020 02:38:00 PM EST [facility] Name Value Range Interpretation Code Description Data Ximena rce(s) Supporting Document(s) IgG P93 AB Laboratory test result [facility] ([facility]) IgG P66 AB Laboratory test [facility] IgG P45 AB Laboratory test [facility] IgG P41 AB Laboratory test result Abnormal (applies to non -numeric results) [facility] IgG P58 AB Laboratory test result [facility] ([facility]) IgG P30 AB Laboratory test result [facility] ([facility]) IgG P39 AB Laboratory test result [facility] ([facility]) IgG P23 AB Laboratory test result [facility] ([facility]) IgG P28 AB Laboratory test result [facility] ([facility]) IgG P18 AB [facility] Lyme IgG WB Interpretation Laboratory test result [facility] ([facility]) Positive: 5 of the following Borrelia-specific bands: 18,23,28,30,39,41,45,58, 66, and 93. Negative: No bands or banding patterns which do not meet positive criteria. IgM P41 AB Laboratory test result [facility] ([facility]) IgM P23 AB Laboratory test result [facility] ([facility]) IgM P39 AB Laboratory test result [facility] ([facility]) Lyme IgM WB Interpretation Laboratory test result [facility] ([facility]) Note: An equivocal or positive EIA resul t followed by a negative Line Blot result is considered NEGATIVE. An equivocal or positive EIA result followed by a positive Line Blot is considered POSITIVE by the CDC. . Positive: 2 of the following bands: 23,39 or 41 Negative: No bands or banding patterns which do not meet positive criteria. Criteria for positivity are those recommended by CDC/ASTPHLD. p23=Osp C, o77=jplmatogu . Note: Sera from individuals with the following may cross react in the Lyme Line Blot assays: other spirochetal diseases (periodontal disease, leptospirosis, rel apsing fever, yaws, and pinta); connective autoimmune (Rheumatoid Arthritis and Systemic Lupus Erythematosus and also individuals with Antinuclear Antibody); other infections ([place] Spotted Fever; Amena-Joseph Virus, and Cytomegalovirus). . ID Date Data Source [id number] 10/29/2020 02:38:00 PM EST [facility] ([facility]) Name Value Range Interpretation Code Description Data Ximena rce(s) Supporting Document(s) Antinuclear Antibodies Direct Laboratory test result [facility] ([facility]) Performed at: [facility] [id number] Patient Attendant: Zeenat Omer MD, Phone: [phone] ID Date Data Source [id number] 10/29/2020 02:38:00 PM EST [facility]) Name Value Range Interpretation Code Description Data Ximena rce(s) Supporting Document(s) Erythrocyte sedimentation rate by 2H Westergren method 21 mm/hr 0-2 0 [facility] ([facility]) Rheumatoid factor [Units/volume] in Serum or Plasma 47.2 IU/ml [facility]) ID Date Data Source [id number] 10/02/2020 04:22:00 PM EST [facility] DATE OF EXAMINATION: 10/02/2020 15:45 EST CAROTID DOPPLER BILATERAL HISTORY: Dizziness Duplex scan was performed using B-mode/guillen scale imaging and Doppler spectralanalysis and color flow. Mild calcified and noncalcified plaque formation involving both carotid bulbsand origin of both internal carotid arteries with less than 16% stenosis isnoted. There is antegrade flow within both vertebral arteries. IMPRESSION: Mild to moderate calcified and noncalcified plaque formation bilaterally withless than 60% stenosis. It should be emphasized that calcified plaque reduces the diagnostic accuracyof this study. Electronically signed in [id number] by: Ant Perez M.D. 10/02/2020 16:16 EST Name Value Range Interpretation Code Description Data Ximena rce(s) Supporting Document(s) ID Date Data Source [id number] 09/29/2020 11:47:00 AM EST [facility] ([facility], ) Name Value Range Interpretation Code Description Data Ximena rce(s) Supporting Document(s) Thyroid Stimulating Hormone 1.240 uIU/ML 0.358-3.740 [facility] ([facility], ) Free T4 1.23 ng/dL 0.76-1.46 [facility] ([facility]) ID Date Data Source [id number] 09/29/2020 11:47:00 AM EST [facility] ([facility], ) Name Value Range Interpretation Code Description Data Ximena rce(s) Supporting Document(s) Blood Urea Nitrogen 27 mg/dL 7-18 [facility] ([facility], ) Glucose, Fasting 103 mg/dL 70-100 [facility] ([facility]) Glomerular Filtration Rate Laboratory test result [facility] ([facility]) <content>Units are mL/min/1.73 m2</content>
<content></content>
<content>Chronic Kidney Disease Staging per NKF:</content>
<content></content>
<content>Stage I & II GFR >=60 Normal to Mildly Decreased</content>
<content>Stage III GFR 30- 59 Moderately Decreased</content>
<content>Stage IV GFR 15-29 Severely Decreased</content>
<content>Stage V GFR <15 Very Little GFR Left</content>
<content>ESRD GFR <15 on AERIAL LINEMAN</content>
<content></content> Creatinine For GFR 0.89 mg/dL 0.70-1.30 [facility] ([facility], ) Sodium Level 141 meq/L 136-145 [facility] ([facility]) Potassium Serum 4.4 meq/L 3.5-5.1 [facility] ([facility]) Carbon Dioxide Level 30 meq/L 21-32 [facility] ([facility]) Chloride Level 107 meq/L 98-107 [facility] ([facility]) Anion Gap 4 meq/L 8-16 [facility] ([facility]) Calcium Level 8.7 mg/dL 8.8-10.2 MEDENT ([facility]) Alt/SGPT 38 U/L 12-78 [facility] ([facility]) Ast/Sgot 28 U/L 7-37 [facility] ([facility]) Alkaline Phosphatase 124 U/L 45-117 [facility] ([facility]) Bilirubin,Total 0.4 mg/dL 0.2-1.0 [facility] ([facility]) Albumin 3.7 GM/DL 3.2-5.2 [facility] ([facility]) Total Protein 6.5 GM/DL 6.4-8.2 [facility] ([facility]) Albumin/Globulin Ratio 1.3 [facility] ([facility]) ID Date Data Source [id number] 09/29/2020 11:47:00 AM EST [facility] ([facility]) Name Value Range Interpretation Code Description Data Ximena rce(s) Supporting Document(s) White Blood Count 6.8 10 4.0-10.0 [facility] ([facility], ) Red Blood Count 4.52 10 4.30-6.10 [facility] ([facility]) Hemoglobin 12.7 g/dL 13.5-17.5 [facility] ([facility], ) Hematocrit 41.2 % 42.0-52.0 [facility] ([facility]) Mean Corpuscular Volume 91.2 fl 80.0-96.0 M EDENT ([facility]) Mean Corpuscular Hemoglobin 28.1 pg 27.0-33.0 [facility] ([facility]) Mean Corpuscular HGB Conc 30.8 g/dL 32.0-36.5 MED[facility] ([facility], ) Platelet Count, Automated 270 10 150-450 [facility] Nucleated Red Blood Cell % 0.0 % 0-0 MED ENT ([facility], ) Red Cell Distribution Width 14.5 % 11.5-14.5 [facility] ([facility]) ID Date Data Source CBC - Complete Blood Count 09/29/2020 12:00:00 AM EST eCW1 ( [facility]) Name Value Range Interpretation Code Description Data Ximena rce(s) Supporting Document(s) 41.2 42.0-52.0 eCW1 ([facility]) 6.8 4.0-10.0 eCW1 ([facility]) 12.7 13.5-17.5 eCW1 ([facility]) 91.2 80.0-96.0 eCW1 ([facility]) 4.52 4.30-6.10 eCW1 ([facility]) 270 150-450 eCW1 ([facility]) 30.8 32.0-36.5 eCW1 ([facility]) 28.1 27.0-33.0 eCW1 ([facility]) 14.5 11.5-14.5 eCW1 ([facility]) ID Date Data Source [id number] 09/10/2020 02:35:00 PM EST [facility] Patient: FLORA MIJARES [facility], [facility].VisitID: [id number] [place] [address] [phone], FRegistranemours foundation Date/Time: 08/25/2020 17:57 Weight:74.8 kg (S). Height/Length:61 inches (S). BMI:31.2 PAST HISTORYProblems:Coronary Artery Disease [Chronic].Heart Disease [Chronic].Hypertension [Chronic].Neuropathy [Chronic].Lung Disease [Chronic].COPD - Chronic Obstructive Pulmonary Disease [Chronic].Gastroesophageal Reflux Disease [Chronic].Myofascial Strain [Chronic].Atrial fibrillation.COPD - Chronic Obstructive Pulmonary Disease.Palpitations. Additional Surgeries:Appendectomy.Cardiac Catheterization.Cardiac Surgery. (Multiple stents)Colonoscopy.Coronary Artery Bypass Graft. (5 [id number])Endoscopy.Hernia Repair.Pacemaker.Tubal Ligation.Ventral Hernia repair . Medications:Metoprolol Tartrate Oral, daily, last dose today.Isosorbide Mononitrate Oral, daily, last dose today.Albuterol-Ipratropium Inhalation (Aerosol Solution 20-100 mcg/act), 3x a day, last dose unk.AmLODIPine Besylate Oral (Tablet 10 mg) 1 tablet, daily, last dose today .Aspirin Oral (Tablet Chewable 81 mg) 1 tablet, daily at bedtime, last dose this am.Breo Ellipta Inhalation (Aerosol Powder Breath Activated 100-25 mcg/inh) 1 puff , daily, last dose today .Chlorthalidone Oral (Tablet 25 mg) 1 tablet, daily, last dose today .Fay lopram Hydrobromide Oral (Tablet 20 mg), daily, last dose this am.Clopidogrel Bisulfate Oral (Tablet 75 mg) 1 tablet, daily at bedtime, last dose last night .Famotidine Oral (Tablet 20 mg) 1 tablet, 2x a day, last dose today .Flagyl Oral unknown , daily, last dose today .HYDROcodone-Acetaminophen Oral (Tablet 10-325 mg) 1 tablet, 2x a day, last dose this am.Incruse Ellipta Inhalation (Aerosol Powder Breath Activated 62.5 mcg/inh) 1puff , daily, last dose today .levETIRAcetam Oral 500 mg, 2x a day, last dose this am.Lisinopril Oral (Tablet 20 mg) 1 tablet, daily, last dose today .Lyrica Oral (Capsule 150 mg) 1 capsule, 2x a day, last dose today .Melatonin Oral (Tablet 5 mg) 1 tablet, daily, last dose last night .Nitroglycerin Translingual 0.4mg (1 tab), as needed, last dose 2-3 weeks ago .Oxybutynin Chloride Oral 5 mg, 2x a day, last dose this am.Potassium Chloride Oral 10 meq, daily, last dose last night .Zolpidem Tartrate Oral (Tablet 10 mg) 1 tablet, daily as needed, last dose last night . Allergies:No Known Drug Allergy. FAMILY HISTORYFather: Cancer, Hypertension. Mother: Diabetes Mellitus. INSTRUCTIONSYour Current Medications: Your current home medications have been reviewed. CONTINUE TAKING THE FOLLOWING MEDICATIONS:Albuterol-Ipratropium Inhalation : Aerosol Solution 20-100 mcg/act, 3x a day, Last: unk. AmLODIPine Besylate Oral : Tablet 10 mg, 1 tablet daily, Last: today. Aspirin Oral : Tablet Chewable 81 mg, 1 tablet daily, Last: this am, at bedtime. Breo Ellipta Inhalation : Aerosol Powder Breath Activated 100-25 mcg/inh, 1 puff daily, Last: today. Chlorthalidone Oral : Tablet 25 mg, 1 tablet daily, Last: today. Citalopram Hydrobromide Oral : Tablet 20 mg, daily, Last: this am. Clopidogrel Bisulfate Oral : Tablet 75 mg, 1 tablet daily, Last: last night, at bedtime. Famotidine Oral : Tablet 20 mg, 1 tablet 2x a day, Last: today. Flagyl Oral : unknown daily, Last: today. HYDROcodone-Acetaminophen Oral : Tablet 10-325 mg, 1 tablet 2x a day, Last: this am. Incruse Ellipta Inhalation : Aerosol Powder Breath Activated 62.5 mcg/inh, 1puff daily, Last: today. Isosorbide Mononitrate Oral : daily, Last: today. levETIRAcetam Oral : 500 mg 2x a day, Last: this am. Lisinopril Oral : Tablet 20 mg, 1 tablet daily, Last: today. Lyrica Oral : Capsule 150 mg, 1 capsule 2x a day, Last: today. Melatonin Oral : Tablet 5 mg, 1 tablet daily, Last: last night. Metoprolol Tartrate Oral : daily, Last: today. Nitroglycerin Translingual : 0.4mg (1 tab), Last: 2-3 weeks ago, prn. Oxybutynin Chloride Oral : 5 mg 2x a day, Last: this am. Potassium Chloride Oral : 10 meq daily, Last: last night. Zolpidem Tartrate Oral : Tablet 10 mg, 1 tablet daily, Last: last night, prn. (Electronically signed by Rainer Melchor 08/26/2020 01:13) Name Value Range Interpretation Code Description Data Ximena rce(s) Supporting Document(s) ID Date Data Source [id number] 08/25/2020 09:30:00 PM EST [facility] AP CHEST DATE OF EXAMINATION: 08/25/2020 18:48 EST CHEST 1 VIEW INDICATION: Shortness of breath COMPARISON: 07/23/2020 TECHNIQUE: A single AP film of the chest was obtained. FINDINGS: There is a dual lead pacer. Sternal wires are visualized. The heart islarge and aorta atherosclerotic and tortuous. There are coronary stents. Noevidence of pulmonary edema or pneumonia. No pneumothorax.. IMPRESSION: No acute pulmonary disease Electronically signed in PS360 by: Kwame Madsen M.D. 08/25/2020 21:24 EST Name Value Range Interpretation Code Description Data Ximena rce(s) Supporting Document(s) ID Date Data Source [id number] 09/01/2020 08:15:00 AM EST [facility] Name Value Range Interpretation Code Description Data Ximena rce(s) Supporting Document(s) [facility] ID Date Data Source [id number] 09/01/2020 08:15:00 AM EST [facility] Name Value Range Interpretation Code Description Data Ximena rce(s) Supporting Document(s) [facility] ID Date Data Source [id number] 08/25/2020 07:35:00 PM EST [facility] Name Value Range Interpretation Code Description Data Ximena rce(s) Supporting Document(s) TSH 1.25 uIU/mL 0.36-3.74 [facility] ID Date Data Source [id number] 08/25/2020 07:24:00 PM EST [facility] Name Value Range Interpretation Code Description Data Ximena rce(s) Supporting Document(s) PARTIAL THROMBOPLASTIN TIME 22.9 SECONDS 21.2-27.3 [facility] ID Date Data Source [id number] 08/25/2020 07:24:00 PM EST [facility] Name Value Range Interpretation Code Description Data Ximena rce(s) Supporting Document(s) PROTHROMBIN TIME (PATIENT) 11.0 SECONDS 9.1-11.6 [facility] INR 1.06 0.87-1.06 [facility] ID Date Data Source [id number] 08/25/2020 07:24:00 PM EST [facility] Name Value Range Interpretation Code Description Data Ximena rce(s) Supporting Document(s) LACTIC ACID 0.7 mmol/L 0.4-2.0 [facility] ID Date Data Source [id number] 08/25/2020 07:24:00 PM EST [facility] Name Value Range Interpretation Code Description Data Ximena rce(s) Supporting Document(s) B-TYPE NATRIURETIC PEPTIDE 286 pg/ml 0-450 [facility] ID Date Data Source [id number] 08/25/2020 07:24:00 PM EST [facility] Name Value Range Interpretation Code Description Data Ximena rce(s) Supporting Document(s) MAGNESIUM 2.0 mg/dL 1.8-2.4 [facility] ID Date Data Source [id number] 08/25/2020 07:24:[address] [facility] Name Value Range Interpretation Code Description Data Ximena rce(s) Supporting Document(s) TROPONIN I < 0.017 ng/mL 0.0-0.056 [facility] ID Date Data Source [id number] 08/25/2020 07:24:[address] [facility] Name Value Range Interpretation Code Description Data Ximena rce(s) Supporting Document(s) LIPASE 69 U/L 73-393 L [facility] ID Date Data Source [id number] 08/25/2020 07:24:[address] [facility] Name Value Range Interpretation Code Description Data Ximena rce(s) Supporting Document(s) GLUCOSE 93 mg/dL 74-106 [facility] BLOOD UREA NITROGEN 26 mg/dL 7-18 [facility] CREATININE 0.9 mg/dL 0.6-1.0 [facility] SODIUM 144 mmol/L 136-145 [facility] POTASSIUM 4.3 mmol/L 3.5-5.1 [facility] CHLORIDE 105 mmol/L 98-107 [facility] CO2 29 mmol/L 21-32 [facility] CALCIUM 9.2 mg/dL 8.5-10.1 [facility] ANION GAP 10.0 mmol/L 5-12 [facility] GLOMERULAR FILTRATION RATE 61 mL/min [facility] GFR IS CALCULATED IN mL/min/1.73m2 AGNIESZKA L FUNCTION: >90MILDLY DECREASED: 60-89MILDY TO MODERATELY DECREASED: 45-59 MODERATELY TO SEVERELY DECREASED: 30-44SEVERELY DECREASED: 15-29RENAL FAILURE: <15 AST 29 U/L 15-37 [facility] ALT 46 U/L 12-78 [facility] ALKALINE PHOSPHATASE 117 U/L 46-116 [facility] TOTAL BILIRUBIN 0.5 mg/dL 0.2-1.0 [facility] TOTAL PROTEIN 7.2 g/dl 6.4-8.2 [facility] ALBUMIN 3.8 gm/dL 3.4-5.0 [facility] ID Date Data Source [id number] 08/25/2020 07:17:00 PM EST [facility] Name Value Range Interpretation Code Description Data Ximena rce(s) Supporting Document(s) WHITE BLOOD COUNT 7.5 K/mm3 4.0-10.0 [facility] al RED BLOOD COUNT 4.48 M/mm3 4.00-5.50 [facility] HEMOGLOBIN 13.1 gm/dL 12.0-16.0 [facility] HEMATOCRIT 40.0 % 36.0-48.8 [facility] MEAN CELL VOLUME 89.3 fl 80-96 [facility] MEAN CORPUSCULAR HEMOGLOBIN 29.2 pg 27.0-31.0 [facility] MEAN CORPUSCULAR HGB CONC 32.8 g/dl 32.0-36.0 [facility] RED CELL DISTRIBUTION WIDTH 15.6 % 10.0-14.5 H [facility] PLATELET COUNT 296 K/mm3 172-450 [facility] MEAN PLATELET VOLUME 9.3 fl 9.0-13.0 [facility] pital GRAN % 69.5 % 50-80.0 [facility] IG% 0.3 % 0.0-0.2 H [facility] LYMPH % 16.9 % 25.0-50.0 L [facility] MONO % 12.0 % 2.0-10.0 H [facility] EOS % 1.2 % 0-5.0 [facility] BASO % 0.1 % 0.0-2.0 [facility] GRAN # 5.2 K/mm3 2.0-8.00 [facility] IG# 0.0 K/mm3 0.0-0.2 [facility] LYMPH # 1.3 K/mm3 1.0-5.0 [facility] MONO # 0.9 K/mm3 0.10-1.20 [facility] EOS # 0.1 K/mm3 0.0-0.5 [facility] BASO # 0.0 K/mm3 0.0-0.2 [facility] ID Date Data Source [id number] 08/13/2020 10:29:24 AM EST [facility] Name Value Range Interpretation Code Description Data Ximena rce(s) Supporting Document(s) &PDF [facility] EXHPJk2lWiBKQiVm90/RUZywEFFam6LuOVscJOc5DTteCUTrQ6AhhIryCSsRYvkMVE5qQGIUPA3zUNZi waW [file] AgICAgICAgICAgICAgICAgICAgICAgICAgICAgICAgICAgICAgICAgICAgICAgICAgICAgICAgICAgIC AgICAgICAgICAgICAgICAgICAgICAgDQogICAgICAgICAgICAgICAgICAgICAgICAgICAgICAgICAgIC AgICAgICAgICAgICAgICAgICAgICAgICAgICAgICAg ICAgICAgICAgICAgICAgICAgICAgICAgICAgICAgICAgDQogICAgICAgICAgICAgICAgICAgICAgICAg ICAgICAgICAgICAgICAgICAgICAgICAgICAgICAgICAgICAgICAgICAgICAgICAgICAgICAgICAgICAg ICAgICAgICAgICAgICAgDQogICAgICAgICAgICAgIC AgICAgICAgICAgICAgICAgICAgICAgICAgICAgICAgICAgICAgICAgICAgICAgICAgICAgICAgICAgIC AgICAgICAgICAgICAgICAgICAgICAgICAgDQogICAgICAgICAgICAgICAgICAgICAgICAgICAgICAgIC AgICAgICAgICAgICAgICAgICAgICAgICAgICAgICAg ICAgICAgICAgICAgICAgICAgICAgICAgICAgICAgICAgICAgDQogICAgICAgICAgICAgICAgICAgICAg ICAgICAgICAgICAgICAgICAgICAgICAgICAgICAgICAgICAgICAgICAgICAgICAgICAgICAgICAgICAg ICAgICAgICAgICAgICAgICAgDQogICAgICAgICAgIC AgICAgICAgICAgICAgICAgICAgICAgICAgICAgICAgICAgICAgICAgICAgICAgICAgICAgICAgICAgIC AgICAgICAgICAgICAgICAgICAgICAgICAgICAgDQogICAgICAgICAgICAgICAgICAgICAgICAgICAgIC AgICAgICAgICAgICAgICAgICAgICAgICAgICAgICAg ICAgICAgICAgICAgICAgICAgICAgICAgICAgICAgICAgICAgICAgDQogICAgICAgICAgICAgICAgICAg ICAgICAgICAgICAgICAgICAgICAgICAgICAgICAgICAgICAgICAgICAgICAgICAgICAgICAgICAgICAg ICAgICAgICAgICAgICAgICAgICAgDQogICAgICAgIC AgICAgICAgICAgICAgICAgICAgICAgICAgICAgICAgICAgICAgICAgICAgICAgICAgICAgICAgICAgIC EmPQRbKDYdFORwDGXjPOZrZBBpKNKyYEIbSRKpOFWfAFh4Y6gvSCTxZGCoXU0zHOm4Fy7+DQoNCmVuZH K8ooVskH4BHA4ty6NxOFbbXPPvr8BbPRz4LG6OUHZo JOhvBL6PIExolz2WRTFlXJAjvQRVs6fcDyIbVZE0RZZuLymzDY2BGHOxG7rymgVxFSVhFGGRJPckJHUG CE9ADnOqI2PazU84HJNAUm4+RVraqcUdUtyYLqX7DKCay8KfLKe3QY2GVOBdHWziSE0KHKFuqB9yAQwz EP8BYwItWtWvNRWFSdQuB16vmSRfOIv9I7NnOvQqIW VkRmlsZXMgPDwvTmFtZXMgWyBdDQogID4+ID4+XLoyXF0XGSukxiPoDWFbNb9ABRGjXIW5IVDacZGlCG ziFSSMQGsuPZ3TzAKaDSP6nD0jDFbcFKPmXFAlO1uSTgAjuSxnXV53hGlnpbYgoCMmYYy+Ys0CZM6xa8 RlKWh1rhFsDPclRLS4THznGRIrETBsKKPrJWC1YPM3 AMWKCwBrKLCtPUTpYNbxEXInCWPlay5AIROsXLXjPOQlCiGfMIWcRFTaHDtgHHQjWJQ6QzL7XRZmFRQc JU8TMtJzHKMyNQRkUJnpXUIjQFDvnh3INYSkLXPhYoP6ERSwICDzLIPpDGeuOACfDCDkCkUdJTUbRZIp AA2KJzPaRQCbEUH3UOKtHMDmPYGcxj7OXWToCYShZI QqIAOzQIThWLFlMYzjPDBhPHU7WTD3USSuAKAqRY8HVtAbEYOkBLSwTuXhIPYvCVKfvq7AWQZfQDYaSW H7LTOeLGJsZMSxOHtpATIfQAI9POTgDYAkOTDtLR2XWrNcECBmRNL1MGOdTSAmANNffk6RUNIyCPNaFs h7SZHsFMLbGGQrGAprPKAnOWVaUSabEHBfIDFyNA8W YbGnSAElHEJ9RZQeXMRfQESmsj4PBZYiOWBzJUtoZIUeYHZkDGKsIFmrREXqLSV4GqL0GJYlEXJwEL8F GiDiKFfhPCHRKhj5FQbgE3r8SKZzSC6JA8Iyp3FnAKwxCNKRHFvxMZ9xkdWePYYjAw3PM5bMMer4AdP1 NMF3EOZzOzM1VkY2VvQgFVtzVLCiAuTiWnS7YH8xXF WgICB5DiB6UlM5SkVoMpM4I9C1Q1QqGmHpZIW9SQutVsOhAW1FDy8WZdW6UVD3gCVwSh6CJEh8ATZETx CpYP3UNEo= ID Date Data Source [id number] 07/28/2020 09:44:08 AM EST [facility] Name Value Range Interpretation Code Description Data Ximena rce(s) Supporting Document(s) EKG [facility] QTNCFq2lOyZPGcKpq8XvViSuLOQfQH1pcud7O1P0lYRbK8HztAMxi5ilI3NtR1GxKGAoMSPYVT6KnWVo jb2 [file] ZvGDCvFWTUTn9Mt895YTSxFEQFSvx+DwifcMNyxGqeSURBGSJ2FaCBJPKGO3E= ID Date Data Source [id number] 07/28/2020 09:35:14 AM EST [facility] NT INFORMATIONPatient MRN Name Date of Age Gend*PT [id number] Flora Mijares 1940 79 years F IPPT Location Admission Date/Time Visit ID Attending [id number] 07/23/202045 --- Kai Dahl MD([id number]) EPI ID CSN Admitting Provider [id number] Pauline Hernandez MD([id number]) [facility] DISCHARGE SUMMARYPatient Name: Flora Mijares of : 1940 Age 79 yearsPrimary Physician: HELIO ZABALA MD PCP Nckwvxozw Date: 07/23/2020 Discharge Date:She will be discharged from [facility] to [facility] Diagnoses:Principal Problem:Symptomatic bradycardia status post PPM placement unstable angina/coronary artery disease status post cardiac catheterization andangioplastyActive Problems: Pulmonary HTN COPD (chronic obstructive pulmonary disease) Neuropathy TODD (obstructive sleep apnea) Pulmonary hypertension Gastroesophageal reflux disease Cardiomegaly Bradycardia History of stent insertion of renal artery RBBB Supplemental oxygen dependent Seizure DiverticulosisDischarge Medications:Current Discharge Medication ListSTART taking these medications Detailsisosorbide mononitrate (IMDUR) 60 MG 24 hr tablet Take 1 tablet (60 mg total) bymouth dailyQty: 30 tablet, Refills: 0metoprolol tartrate (LOPRESSOR) 25 MG tablet Take 0.5 tablets (12.5 mg total) bymouth 2 (two) times a dayQty: 30 tablet, Refills: 0CONTINUE t hese medications which have CHANGED DetailsamLODIPine (NORVASC) 5 MG tablet Take 1 tablet (5 mg total) by mouth dailyQty: 30 tablet, Refills: 0lisinopril (PRINIVIL,ZESTRIL) 5 MG tablet Take 1 tablet (5 mg total) by mouthdailyQty: 30 tablet, Refills: 0CONTINUE these medications which have NOT CHANGED Detailsaspirin EC 81 MG EC tablet Take 81 mg by mouth dailychlorthalidone (HYGROTEN) 25 MG tablet Take 25 mg by mouth dailycitalopram (CELEXA) 20 MG tablet Take 20 mg by mouth dailyclopidogrel (PLAVIX) 75 MG tablet Take 75 mg by mouth dailyfamotidine (PEPCID) 20 MG tablet Take 20 mg by mouth 2 (two) times a dayFluticasone Furoate-Vilanterol (BREO ELLIPTA) 100-25 MCG/INH INHALER Inhale 1puff dailyHYDROcodone-acetaminophen (NORCO 10-325) 10-325 MG per tablet Take 1 tablet bymouth daily as needed for painlevETIRAcetam (KEPPRA) 500 MG tablet Take 500 mg by mouth 2 (two) times a dayMelatonin 5 MG CAPS Take 5 mg by mouth nightly as needed (for sleep)nitroglycerin (NITROSTAT) 0.[address] 0.4 mg under the tongue every 5(five) minutes as needed for chest painoxybutynin (DITROPAN) 5 MG tablet Take 5 mg by mouth 2 (two) times a daypotassium chloride SA (K-DUR,KLOR-CON) 10 MEQ tablet Take 10 mEq by mouth dailypregabalin (LYRICA) 150 MG capsule Take 150 mg by mouth 2 (two) times a dayUmeclidinium [place] (INCRUSE ELLIPTA) 62.5 MCG/INH AEPB Inhale 1 puff nightlyzolpidem (AMBIEN) 10 MG tablet Take 10 mg by mouth nightly as needed for sleepSTOP taking these medications metroNIDAZOLE (FLAGYL) 500 MG tablet atenolol (TENORMIN) 50 MG tabletFollow Up Instructions:The patient was given an after visit sum satnam.Patient will follow up with PCP in 3-7 days.Cardiology call to scheduleItems needing special attention:AMRIT BMP with PCPBrief Hospital Course:In summary this is a very pleasant 79-year-old female who has known coronaryartery disease status post CABG x5 in 2001 last heart cath was in 2017 withpatent grafts including ESPINOSA to LAD patent stents in the right and leftcircumflex, she has preserved left ventricular function by echo performed inSept2018She does have history of hypertension hyperlipidemia COPD on continuous home O2,GI bleeding currently no evidence of active bleedShe presented to the hospital secondary to fatigue and near syncopal episodeswith no evidence of documented seizure activity upon presentation to thehospital she was noted to have atypical chest painHer work-up revealed the followingEKG showed marked sinus bradycardia in the 40s with new bundle branch block andher heart rate on telemetry was in 30s with reported dizziness and fatigue noevidence of high degree AV block p atient was off all negative chronotropicmedications as an outpatientCardiology was consulted and EP was consulted she underwent PPM placementHer symptomatology improved significantlyShe is now resuming beta-blockers post pacemaker placement and continue the restof her home medicationsPatient is currently stable for discharge follow-up with PCP and cardiology asan outpatientPatient was advised if there is any exacerbation of symptoms to seek medicalattention immediatelyAddendum on July 28, 2020Patient ended up staying as she developed chest pain and discomfort radiating toher left jawDiscussed with cardiology she is proceeding with cardiac catheterization onJuly 27at revealed the following1. Severe stenosis in the PDA at the distal edge of the previously deployedstent status post successful drug-eluting stent placement.2. Stable coronary artery disease otherwise with patent stents in the RCA anddistal left main and left circumflex and patent ESPINOSA to the distal LAD.3. Normal left ventricular systolic function.We will continue aspirin Plavix [place] inhibitor is on beta-blockersContinue ImdurContinue risk factor modificationPatient is hemodynamically stable for discharge and can follow-up with PCP andcardiology as an outpatientDischarge Exam:Blood Pressure: BP: 129/60 Pulse: Heart Rate: 66Temperature: Temp: 97.6 F Respirations: Resp: 18Admission Weight: Weight: 78.7 kg (173 lb 9.6 oz) O2 Saturation: SpO2: 95 %Discharge Weight: Weight: 78.7 kg (173 lb 9.6 oz) BMI: Body mass index is 32.8kg/m .Physical Exam General alert oriented x3 HEENT normocephalic atraumatic Lungs clear to auscultation bilateral Heart S1-S2 heard Abdomen soft, non-tender, non-distended, no organomegaly or masses Musculoskeletal no edema Neuro mental status, speech normal, alert and oriented [id number]:Imaging:Chest x-ray post pacemaker placementIMPRESSION: No pneumothorax or pleural effusion detected after pacemakerplacement.Procedures:Status post pacemaker placementCardiac catheterization pending on July 27. Severe stenosis in the PDA at the distal edge of the previously deployedstent status post successful drug-eluting stent placement.2. Stable coronary artery disease otherwise with patent stents in the RCA anddistal left main and left circumflex and patent ESPINOSA to the distal LAD.3. Normal left ventricular systolic function.4. Right radial access.Consultants:CardiologyRecent Labs:BMP:Lab ResultsComponent Value Date NA 138 07/27/2020 K 4.1 07/27/2020 CL 102 07/27/2020 CO2 28 07/27/2020 ANIONGAP 8 07/27/2020 CALCIUM 8.9 07/27/2020 GLU 116 (H) 07/27/2020 BUN 33 (H) 07/27/2020 CREATININE 0.62 07/27/2020 GFRAA >60 07/27/2020 GFRNONAA >60 07/27/2020Cardiac:Lab ResultsComponent Value Date TROPONINI <0.05 07/25/2020 PROBNP 399 07/23/2020CBC with Diff:Lab ResultsComponent Value Date WBC 5.7 07/28/2020 RBC 3.60 (L) 07/28/2020 HGB 10.5 (L) 07/28/2020 HCT 31.0 (L) 07/28/2020 MCV 86.3 07/28/2020 MCH 29.1 07/28/2020 MCHC 33.7 07/28/2020 RDW 15.5 (H) 07/28/2020 PLT 207 07/28/2020 MPV 7.4 07/28/2020 LYMPHOPCT 19.2 07/23/2020 MONOPCT 10.9 (H) 07/23/2020 EOSPCT 1.2 07/23/2020 BASOPCT 0.8 07/23/2020 NEUTROABS 4.9 07/23/2020 MONOABS 0.8 07/23/2020 BASOSABS 0.1 07/23/2020HgbA1c:Lab ResultsComponent Value Date HGBA1C 5.9 07/23/2020Hyperlipidemia:Lab ResultsComponent Value Date CHOL 114 07/23/2020 TRIG 94 07/23/2020 HDL 46 07/23/2020 CHOLHDL 2.5 07/23/2020 LDL 57 09/27/2017 LDLCALC 49 07/23/2020Thyroid:Lab ResultsComponent Value Date TSH 1.605 07/23/2020 TSH 2.2 03/16/2019Kai Dahl MD7:38 AMTotal time spent for discharge on date of discharge: 40 minutes Name Value Range Interpretation Code Description Data Ximena rce(s) Supporting Document(s) ID Date Data Source [id number] 07/28/2020 07:57:42 AM EST [facility] Name Value Range Interpretation Code Description Data Ximena rce(s) Supporting Document(s) SODIUM 138 mmol/L (136-145) [facility] POTASSIUM 4.5 mmol/L (3.6-5.2) [facility] CHLORIDE 103 mmol/L (100-108) [facility] CO2 28 mmol/L (22-31) [facility] ANION GAP 7 mmol/L (7-16) [facility] UREA NITROGEN 24 mg/dL (7-24) [facility] CREATININE 0.52 mg/dL (0.60-1.00) L [facility] BUN/CREAT RATIO 46.2 RATIO (10.0-20.0) H [facility] GLUCOSE 106 mg/dL (70-99) H [facility] CALCIUM 8.5 mg/dL (8.4-10.2) [facility] GFR >60 ml/min/1.73m2 (>59) [facility] GFR ( AMER) >60 ml/min/1.73m2 (>59) [facility] GFR INTERPRETATION [facility] --NORMAL KIDNEY FUNCTION OR MILD DISEASE - GFR >OR= 60CHRONIC KIDNEY DISEASE - GFR 15 - 59RENAL FAILURE - GFR <15 Est. GFR calculation based on the MDRDstudy equation, which assumes a steadystate for creatinine. Est. GFR should notbe used for medication dosing. ID Date Data Source [id number] 07/28/2020 07:22:26 AM EST [facility] Name Value Range Interpretation Code Description Data Ximena rce(s) Supporting Document(s) WBC 5.7 10*3/uL (4.1-11.0) [facility] RBC 3.60 10*6/uL (4.00-5.40) L [facility] HGB 10.5 g/dL (12.0-16.0) L [facility] HCT 31.0 % (36.0-47.0) L [facility] MCV 86.3 fL (80.0-95.0) [facility] MCH 29.1 pg (27.0-32.0) [facility] MCHC 33.7 g/dL (32.0-36.0) [facility] RDW 15.5 % (10.5-14.5) H [facility] PLT 207 10*3/uL (150-450) [facility] MPV 7.4 fL (7.1-10.7) [facility] ID Date Data Source [id number] 07/27/2020 12:24:10 PM EST [facility] Name Value Range Interpretation Code Description Data Ximena rce(s) Supporting Document(s) &PDF [facility] TJILIa5wRyONUrDl07/WAYhlNDWzd5VyTDlmBSo2YDkjERMeY5GczToyATgQNfbTVI1dKQOOLL7eBPLh pYy [file] zkAnWV1jjC89ysfe/biomedical engineering aide/cy8ZKnQeFF9BhwNTCWAxke6TfSZ8l9VH2oWWslLin7UU9udkDNKyMzJXX9jh [file] JJmNU6/LUZ ELENA+S8EhF9MqTOCSEo4ok/8Yij45l0xTF7xtGY1IGRzZdjRmFPxIzTbZzPI9jfvB5Rb3RqTaS [file] oPVeFdCF0QLXb= ID Date Data Source [id number] 07/27/2020 10:33:50 AM EST [facility] NT INFORMATIONPatient MRN Name Date of Age Gend*PT [id number] Flora Mijares 1940 79 years F OBSPT Location Admission Date/Time Visit ID Attending [id number] 07/23/202045 --- Kai Dahl MD([id number]) EPI ID CSN Admitting Provider [id number] Pauline Hernandez MD([id number]) [facility] DISCHARGE SUMMARYPatient Name: Flora Mijares of : 1940 Age 79 yearsPrimary Physician: HELIO ZABALA MD PCP Fgwuoichm Date: 07/23/2020 [facility] Date[facility] Diagn[facility]:Principal Problem:Symptomatic bradycardia status post PPM placementActive Problems: Pulmonary HTN COPD (chronic obstructive pulmonary disease) Neuropathy TODD (obstructive sleep apnea) Pulmonary hypertension Gastroesophageal reflux disease Cardiomegaly Bradycardia History of stent insertion of renal artery RBBB Supplemental oxygen dependent Seizure DiverticulosisDischarge Medications:Current Discharge Medication ListSTART taking these medications Detailsisosorbide mononitrate (IMDUR) 60 MG 24 hr tablet Take 1 tablet (60 mg total) bymouth dailyQty: 30 tablet, Refills: 0metoprolol tartrate (LOPRESSOR) 25 MG tablet Take 0.5 tablets (12.5 mg total) bymouth 2 (two) times a dayQty: 30 tablet, Refills: 0CONTINUE these medications which have CHANGED DetailsamLODIPine (NORVASC) 5 MG tablet Take 1 tablet (5 mg total) by mouth dailyQty: 30 tablet, Refills: 0lisinopril (PRINIVIL,ZESTRIL) 5 MG tablet Take 1 tablet (5 mg total) by mouthdailyQty: 30 tablet, Refills: 0CONTINUE these medications which have NOT CHANGED Detailsaspirin EC 81 MG EC tablet Take 81 mg by mouth dailychlorthalidone (HYGROTEN) 25 MG tablet Take 25 mg by mouth dailycitalopram (CELEXA) 20 MG tablet Take 20 mg by mouth dailyclopidogrel (PLAVIX) 75 MG tablet Take 75 mg by mouth dailyfamotidine (PEPCID) 20 MG tablet Take 20 mg by mouth 2 (two) times a dayFluticasone Furoate-Vilanterol (BREO ELLIPTA) 100-25 MCG/INH INHALER Inhale 1puff d ailyHYDROcodone-acetaminophen (NORCO 10-325) 10-325 MG per tablet Take 1 tablet bymouth daily as needed for painlevETIRAcetam (KEPPRA) 500 MG tablet Take 500 mg by mouth 2 (two) times a dayMelatonin 5 MG CAPS Take 5 mg by mouth nightly as needed (for sleep)nitroglycerin (NITROSTAT) 0.[address] 0.4 mg under the tongue every 5(five) minutes as needed for chest painoxybutynin (DITROPAN) 5 MG tablet Take 5 mg by mouth 2 (two) times a daypotassium chloride SA (K-DUR,KLOR-CON) 10 MEQ tablet Take 10 mEq by mouth dailypregabalin (LYRICA) 150 MG capsule Take 150 mg by mouth 2 (two) times a dayUmeclidinium [place] (INCRUSE ELLIPTA) 62.5 MCG/INH AEPB Inhale 1 puff nightlyzolpidem (AMBIEN) 10 MG tablet Take 10 mg by mouth nightly as needed for sleepSTOP taking these medications metroNIDAZOLE (FLAGYL) 500 MG tablet atenolol (TENORMIN) 50 MG tabletFollow Up Instructions:The patient was given an after visit summary.Patient will follow up with PCP in 3-7 days.Cardiology call to scheduleItems needing special attention:CBC BMP with PCPBrief Hospital Course:In summary this is a very pleasant 79-year-old female who has known coronaryartery disease status post CABG x5 in 2001 last heart cath was in 2018 withpatent grafts including ESPINOSA to LAD patent stents in the right and leftcircumflex, she has preserved left ventricular function by echo performed inSeptember 2018She does have history of hypertension hyperlipidemia COPD on continuous home O2,GI bleeding currently no evidence of active bleedShe presented to the hospital secondary to fatigue and near syncopal episodeswith no evidence of documented s eizure activity upon presentation to thehospital she was noted to have atypical chest painHer work-up revealed the followingEKG showed marked sinus bradycardia in the 40s with new bundle branch block andher heart rate on telemetry was in 30s with reported dizziness and fatigue noevidence of high degree AV block patient was off all negative chronotropicmedications as an outpatientCardiology was consulted and EP was consulted she underwent PPM placementHer symptomatology improved significantlyShe is now resuming beta-blockers post pacemaker placement and continue the restof her home medicationsPatient is currently stable for discharge follow-up with PCP and cardiology asan outpatientPatient was advised if there is any exacerbation of symptoms to seek medicalattention immediatelyAddendum on July 27, 2020Patient ended up staying as she developed chest pain and discomfort radiating toher left jawDiscussed with cardiology she is proceeding with cardiac catheterization todayon July 27, 2020Patient feels better with addition of ImdurIf catheter is negative today we will proceed with discharge later on todayPatient reports no events overnightDischarge Exam:Blood Pressure: BP: 121/60 Pulse: Heart Rate: 69Temperature: Temp: 97.6 F Respirations: Resp: 18Admission Weight: Weight: 78.7 kg (173 lb 9.6 oz) O2 Saturation: SpO2: 95 %Discharge Weight: Weight: 78.7 kg (173 lb 9.6 oz) BMI: Body mass index is 32.8kg/m .Physical Exam General alert oriented x3 HEENT normocephalic atraumatic Lungs clear to auscultation bilateral Heart diminished air entry in the bases bilateral Abdomen soft, non-tender, non-distended, no organomegaly or masses Musculoskeletal negative Neuro mental status, speech normal, alert and oriented i5Jmrhaycvasa:Imaging :Chest x-ray post pacemaker placementIMPRESSION: No pneumothorax or pleural effusion detected after pacemakerplacement.Procedures:Status post pacemaker placementCardiac catheterization pending on July 27, 2020Consultants:CardiologyRecent Labs:BMP:Lab ResultsComponent Value Date NA 138 07/27/2020 K 4.1 07/27/2020 CL 102 07/27/2020 CO2 28 07/27/2020 ANIONGAP 8 07/27/2020 CALCIUM 8.9 07/27/2020 GLU 116 (H) 07/27/2020 BUN 33 (H) 07/27/2020 CREATININE 0.62 07/27/2020 GFRAA >60 07/27/2020 GFRNONAA >60 07/27/2020Cardiac:Lab ResultsComponent Value Date TROPONINI <0.05 07/25/2020 PROBNP 399 07/23/2020CBC with Diff:Lab ResultsComponent Value Date WBC 6.3 07/27/2020 RBC 3.75 (L) 07/27/2020 HGB 11.2 (L) 07/27/2020 HCT 32.0 (L) 07/27/2020 MCV 85.2 07/27/2020 MCH 29.7 07/27/2020 MCHC 34.9 07/27/2020 RDW 15.5 (H) 07/27/2020 PLT 203 07/27/2020 MPV 7.4 07/27/2020 LYMPHOPCT 19.2 07/23/2020 MONOPCT 10.9 (H) 07/23/2020 EOSPCT 1.2 07/23/2020 BASOPCT 0.8 07/23/2020 NEUTROABS 4.9 07/23/2020 MONOABS 0.8 07/23/2020 BASOSABS 0.1 07/23/2020HgbA1c:Lab ResultsComponent Value Date HGBA1C 5.9 07/23/2020Hyperlipidemia:Lab ResultsComponent Value Date CHOL 114 07/23/2020 TRIG 94 07/23/2020 HDL 46 07/23/2020 CHOLHDL 2.5 07/23/2020 LDL 57 09/27/2017 LDLCALC 49 07/23/2020Thyroid:Lab ResultsComponent Value Date TSH 1.605 07/23/2020 TSH 2.2 03/16/2019Kai Dahl MD10:33 AMTotal time spent for discharge on date of discharge: 40 minutes Name Value Range Interpretation Code Description Data Ximena rce(s) Supporting Document(s) ID Date Data Source [id number] 07/27/2020 07:13:46 AM EST [facility] Name Value Range Interpretation Code Description Data Ximena rce(s) Supporting Document(s) EKG [facility] SXIOPc1qDdUUYpZvx0SbByArYSZlPF9yqwg0P4W7dYAlX7KkoPQfl6duF0XvM6QvUZUxNRCNYJ5EuAEo jb2 [file] fi8/Arborist Climber+HfxU+7ZB/lfgUln+KWUSO0STfM/ZGts0JT6 3HXxhpFARmo9GVG47k5HDNQey075ERil46Swm1KzYJbwHi3cc/OSb57fqOSx74yJTQv02clFMqakl9+N gE33PwNy0Ke43g7QCAiNAT1YDBcW2/UQL1Or3MRoX0KQ8d5Ep2GIaFSiwb3k7xX4l6mbSOr8R3QRLio2 Qyytxazbzk0Y9qq76IH0H1Wyz4Xwi2QhH+5eno6992 v1Rr7CViwF5r5te3Hni7LvhsbJluFSlFmbXcUCavQx3bVE5l3K7QQOA0VOkA3jRqW3xOignlGS0jWteG HbjevxP+1YR/NeFfTfhXE/0LkF971E1V+FcT/uZBnrHoZ32xF96Os5JHCU3ocBk3UPjvAd6NKuenqpup eM27Duk/StyADbgDD+AJvIAhF+yLj1OvnZ2RcXOKHo +958U6O8TrFS0W9Z1K/v3830Q3lrMy8am/dsq/Mn0+gCd+d7A1bMCTReyhWuPjnJK2GjNt1Vx1dMRy6O 5tzIxbcYxhsAnqgnxmSRlL5H5DS7sBP1S1ltZyUPxXv1D2A6cdFds9zhDxRVouZ1qdfVsyeBlaTg42W+ 731Hx/yl7F+oC6h4QblJ7c4Hczy/y25EJ3Xu4Aheku rw9RC71y9zvTL/7G0vpV+ZGevQZ6fzzyXG/uUjKoh27UtL+vsFda+11hr+TjrbBXM/yZFfZqhW+2wl4t 5Uf2Te5lOfrqY1hNrCLvp3DlcpyJ+IDeq3kdK/IsS9ic5yCaC4jEp7fqY38nhISe4Jkw2c3uawtFrcAl 63t2f2xl9ZTWzsbQ6Sgt8re1xsNeFk3alK6P3Cgliv 7l00JMjd3j8UpzrU0fdEY+gGAb0gwFc52sYf/oOo67BF/CkpoZ15SrwOWYEhGxvzLBJBAw9FSfWlfzdB 4cU31mEVo/vGSvEpf/vJqMp4k0Q/WF/FjHl2TKzt34Lh5H4/pTZMwQYH7GHhuOJrWp1C0baZqqcrS7In ZqdMipXhCLwxFvPkhYBp3Oy+PWOrB+d5Sq3Jvb51Oz 4jyv8dcMVc6CMtpPH+EYeHEJfmmAH9Vt4qMfrMt9BwEFdp70mZ+la0kmHd2ZitamCx825x3326w6+k72 Sv1+pl16x1fz6frOJhCN2/93nB7lQJ/a8K/2U++F/SfqZ961ca5UzXY92XCiqiiJJ6zIv8ORNz8g3zGo jZ5Pko1nyb7J96J/hvs13K/gbjoul7a3BHwE2eNc37 734ai7Zavc+Jf2YWBNW/9qw7/a8K82/KsN/4mVw6fjs/ao9++bP1BEEjARM7gfvvsvfcet8ekPORbfK3 nnvRowxvPqwLVOuFetb+b5w2T0wJIVlrfrV9FDzkIJjKF3D+WWhCC8TX24002o0Vu/mjy669L/8K82/K ot4Z6gEc52u3+Fj6m7qv4p+VeyIafWc/Ez2Y91qZzr Jz95drBEogTuUW9FDdjAn849+Ff+AUTOMOBILE REPOSSESSOR/6U/4lTh09DliuUC5BHmaMA/AEXsCQi/X3h6FthUfSq4WyxKcU c6EamBjIhoWn4YzWfq62Jaw8y7n/Cj/KZa/f55Fb4u2iF4/QMR/7Oh0Cn62h/CtUW2vy24sFMqb+yj67 4hnive+HReii2HSHSC6wg20Aay+PuIWr0SOeqqb1R9 [place]/NtFxngq3q40mzo3LhTr/JsC7qD7ODkAu0e/FhdP+zVCX/bFc+en2coOfN8vRGILa7H8n2C/uHwn8 [file] BSCgo+ZgtzpISwbUlzOLKMFXCdCRANKARQW0J= ID Date Data Source [id number] 07/27/2020 07:09:09 AM EST [facility] Name Value Range Interpretation Code Description Data Ximena rce(s) Supporting Document(s) SODIUM 138 mmol/L (136-145) [facility] POTASSIUM 4.1 mmol/L (3.6-5.2) [facility] CHLORIDE 102 mmol/L (100-108) [facility] CO2 28 mmol/L (22-31) [facility] ANION GAP 8 mmol/L (7-16) [facility] UREA NITROGEN 33 mg/dL (7-24) H [facility] CREATININE 0.62 mg/dL (0.60-1.00) [facility] BUN/CREAT RATIO 53.2 RATIO (10.0-20.0) H [facility] GLUCOSE 116 mg/dL (70-99) H [facility] CALCIUM 8.9 mg/dL (8.4-10.2) [facility] GFR >60 ml/min/1.73m2 (>59) [facility] GFR ( AMER) >60 ml/min/1.73m2 (>59) [facility] GFR INTERPRETATION [facility] --NORMAL KIDNEY FUNCTION OR MILD DISEASE - GFR >OR= 60CHRONIC KIDNEY DISEASE - GFR 15 - 59RENAL FAILURE - GFR <15 Est. GFR calculation based on the MDRDstudy equation, which assumes a steadystate for creatinine. Est. GFR should notbe used for medication dosing. ID Date Data Source [id number] 07/27/2020 06:35:12 AM EST [facility] Name Value Range Interpretation Code Description Data Ximena rce(s) Supporting Document(s) WBC 6.3 10*3/uL (4.1-11.0) [facility] RBC 3.75 10*6/uL (4.00-5.40) L [facility] HGB 11.2 g/dL (12.0-16.0) L [facility] HCT 32.0 % (36.0-47.0) L [facility]FOR[facility] AT [address] [place] [address] [facility] [address] MCV 85.2 fL (80.0-95.0) [facility] MCH 29.7 pg (27.0-32.0) [facility] MCHC 34.9 g/dL (32.0-36.0) [facility] RDW 15.5 % (10.5-14.5) H [facility] PLT 203 10*3/uL (150-450) [facility] MPV 7.4 fL (7.1-10.7) [facility] ID Date Data Source [id number] 07/26/2020 11:33:04 AM EST [facility] Name Value Range Interpretation Code Description Data Ximena rce(s) Supporting Document(s) APTT 24.9 s (22.0-34.3) [facility] ID Date Data Source [id number] 07/26/2020 11:33:04 AM EST [facility] Name Value Range Interpretation Code Description Data Ximena rce(s) Supporting Document(s) PT 10.6 s (9.2-11.9) [facility] INR 1.01 [facility] SUGGESTED THERAPEUTIC RANGES USING INR F ORSTABILIZED ANTICOAGULATED PATIENTS:STANDARD DOSE THERAPY INR 2.0-3.0 DVT, PE, PREVENT DVT OR EMBOLISMHIGH DOSE THERAPY INR 2.5-3.5 PREVENT EMBOLISM FROM MECHANICAL HEART VALVE ID Date Data Source [id number] 07/26/2020 10:25:03 AM EST [facility] NT INFORMATIONPatient MRN Name Date of Age Gend*PT [id number] Flora Mijares 1940 79 years F OBSPT Location Admission Date/Time Visit ID Attending [id number] 07/23/202045 --- Kai Dahl MD([id number]) EPI ID CSN Admitting Provider [id number] Pauline Hernandez MD([id number]) [facility] DISCHARGE SUMMARYPatient Name: Flora Mijares of : 1940 Age 79 yearsPrimary Physician: HELIO ZABALA MD PCP Unstvowjs Date: 07/23/2020 Discharge Date:She will be discharged from [facility] to [facility] Diagnoses:Principal Problem:Symptomatic bradycardia status post PPM placementActive Problems: Pulmonary HTN COPD (chronic obstructive pulmonary disease) Neuropathy TODD (obstructive sleep apnea) Pulmonary hypertension Gastroesophageal reflux disease Cardiomegaly Bradycardia History of stent insertion of renal artery RBBB Supplemental oxygen dependent Seizure DiverticulosisDischarge Medications:Current Discharge Medication ListSTART taking these medications Detailsisosorbide mononitrate (IMDUR) 60 MG 24 hr tablet Take 1 tablet (60 mg total) bymouth dailyQty: 30 tablet, Refills: 0metoprolol tartrate (LOPRESSOR) 25 MG tablet Take 0.5 tablets (12.5 mg total) bymouth 2 (two) times a dayQty: 30 tablet, Refills: 0CONTINUE these medications which have CHANGED DetailsamLODIPine (NORVASC) 5 MG tablet Take 1 tablet (5 mg total) by mouth dailyQty: 30 tablet, Refills: 0CONTINUE these medications which have NOT CHANGED DetailslevETIRAcetam (KEPPRA) 500 MG tablet Take 500 mg by mouth 2 (two) times a dayaspirin EC 81 MG EC tablet Take 81 mg by mouth dailychlorthalidone (HYGROTEN) 25 MG tablet Take 25 mg by mouth dailycitalopram (CELEXA) 20 MG tablet Take 20 mg by mouth dailyclopidogrel (PLAVIX) 75 MG tablet Take 75 mg by mouth dailydocusate sodium (COLACE) 100 MG capsule Take 1 capsule (100 mg total) by mouth 2(two) times a dayQty: 60 capsule, Refills: 5Evolocumab (REPATHA) 140 MG/ML SOSY Inject 140 mg under the skin every 14(fourteen) daysfamotidine (PEPCID) 20 MG tablet Take 20 mg by mouth 2 (two) times a dayFluticasone Furoate-Vilanterol (BREO ELLIPTA) 100-25 MCG/INH INHALER Inhale 1puff dailyHYDROcodone-acetaminophen (NORCO 10-325) 10-325 MG per tablet Take 1 tablet bymouth daily as needed for painlisinopril (PRINIVIL,ZESTRIL) 20 MG tablet Take 20 mg by mouth dailyMelatonin 5 MG CAPS Take 5 mg by mouth juan ynitroglycerin (NITROSTAT) 0.[address] 0.4 mg under the tongue asneededoxybutynin (DITROPAN) 5 MG tablet Take 5 mg by mouth 2 (two) times a daypolyethylene glycol (GLYCOLAX) packet Take 17 g by mouth dailyQty: 14 each, Refills: 5potassium chloride SA (K-DUR,KLOR-CON) 10 MEQ tablet Take 10 mEq by mouth dailypregabalin (LYRICA) 150 MG capsule Take 150 mg by mouth 2 (two) times a dayUmeclidinium [place] (INCRUSE ELLIPTA) 62.5 MCG/INH AEPB Inhale 1 puff dailyzolpidem (AMBIEN) 10 MG tablet Take 10 mg by mouth nightly as needed for sleepSTOP taking these medications atenolol (TENORMIN) 50 MG tabletFollow Up Instructions:The patient was given an after visit summary.Patient will follow up with PCP in 3-7 days.Cardiology call to scheduleItems needing special attention:AMRIT BMP with PCPBrief Hospital Course:In summary this is a very pleasant 79-year-old female who has known coronaryartery disease status post CABG x5 in 2001 last heart cath was in 2018 withpatent grafts including ESPINOSA to LAD patent stents in the right and leftcircumflex, she has preserved left ventricular function by echo performed inSeptember 2019She does have history of hypertension hyperlipidemia COPD on continuous home O2,GI bleeding currently no evidence of active bleedShe presented to the hospital secondary to fatigue and near syncopal episodeswith no evidence of documented seizure activity upon presentation to thehospital she was noted to have atypical chest painHer work-up revealed the followingEKG showed marked sinus bradycardia in the 40s with new bundle branch block andher heart rate on telemetry was in 30s with reported dizziness and fatigue noevidence of high degree AV block patient was off all negative chronotropicmedications as an outpatientCardiology was consulted and EP was consulted she underwent PPM placementHer symptomatology improved significantlyShe is now resuming beta-blockers post pacemaker placement and continue the restof her home medicationsPatient is currently stable for discharge follow-up with PCP and cardiology asan outpatientPatient was advised if there is any exacerbation of symptoms to seek medicalattention immediatelyDischarge Exam:Blood Pressure: BP: 120/58 Pulse: Heart Rate: 73Tem perature: Temp: 97.7 F Respirations: Resp: 18Admission Weight: Weight: 78.7 kg (173 lb 9.6 oz) O2 Saturation: SpO2: (!) 1 %Discharge Weight: Weight: 78.7 kg (173 lb 9.6 oz) BMI: Body mass index is 32.8kg/m .Physical Exam General alert, in no apparent distress HEENT Normal Lungs clear to auscultation Heart regular rate and rhythm Abdomen soft, non-tender, non-distended, no organomegaly or masses Musculoskeletal negative Neuro mental status, speech normal, alert and oriented u3Rtvtqmluhfx:Imaging:Chest x-ray post pacemaker placementIMPRESSION: No pneumothorax or pleural effusion detected after pacemakerplacement.Procedures:Status post pacemaker placementConsultants:CardiologyRecent Labs:BMP:Lab ResultsComponent Value Date NA 138 07/25/2020 K 4.0 07/25/2020 CL 101 07/25/2020 CO2 28 07/25/2020 ANIONGAP 9 07/25/2020 CALCIUM 8.9 07/25/2020 GLU 85 07/25/2020 BUN 18 07/25/2020 CREATININE 0.61 07/25/2020 GFRAA >60 07/25/2020 GFRNONAA >60 07/25/2020Cardiac:Lab ResultsComponent Value Date TROPONINI <0.05 07/25/2020 PROBNP 399 07/23/2020CBC with Diff:Lab ResultsComponent Value Date WBC 7.4 07/25/2020 RBC 4.04 07/25/2020 HGB 12.2 07/25/2020 HCT 35.2 (L) 07/25/2020 MCV 87.3 07/25/2020 MCH 30.1 07/25/2020 MCHC 34.5 07/25/2020 RDW 15.1 (H) 07/25/2020 PLT 218 07/25/2020 MPV 7.2 07/25/2020 LYMPHOPCT 19.2 07/23/2020 MONOPCT 10.9 (H) 07/23/2020 EOSPCT 1.2 07/23/2020 BASOPCT 0.8 07/23/2020 NEUTROABS 4.9 07/23/2020 MONOABS 0.8 07/23/2020 BASOSABS 0.1 07/23/2020HgbA1c:Lab ResultsComponent Value Date HGBA1C 5.9 07/23/2020Hyperlipidemia:Lab R esultsComponent Value Date CHOL 114 07/23/2020 TRIG 94 07/23/2020 HDL 46 07/23/2020 CHOLHDL 2.5 07/23/2020 LDL 57 09/27/2017 LDLCALC 49 07/23/2020Thyroid:Lab ResultsComponent Value Date TSH 1.605 07/23/2020 TSH 2.2 03/16/2019Kai Dahl MD7:26 AMTotal time spent for discharge on date of discharge: 40 minutes Name Value Range Interpretation Code Description Data Ximena rce(s) Supporting Document(s) ID Date Data Source [id number] 07/26/2020 09:09:03 AM EST [facility] INFORMATIONPatient MRN Name Date of Age Gend*PT [id number] Flora Mijares 1940 79 years F OBSPT Location Admission Date/Time Visit ID Attending [id number] 07/23/202045 --- Kai Dahl MD([id number]) EPI ID CSN Admitting Provider [id number] Pauline Hernandez MD([id number]) [facility] DISCHARGE SUMMARYPatient Name: Flora Mijares of : 1940 Age 79 yearsPrimary Physician: HLEIO ZABALA MD PCP Ryvyurorc Date: 07/23/2020 Discharge Date:She will be discharged from [facility] to [facility] Diagnoses:Principal Problem:Symptomatic bradycardia status post PPM placementActive Problems: Pulmonary HTN COPD (chronic obstructive pulmonary disease) Neuropathy TODD (obstructive sleep apnea) Pulmonary hypertension Gastroesophageal reflux disease Cardiomegaly Bradycardia History of stent insertion of renal artery RBBB Supplemental oxygen dependent Seizure DiverticulosisDischarge Medications:Current Discharge Medication ListSTART taking these medications Detailsisosorbide mononitrate (IMDUR) 60 MG 24 hr tablet Take 1 tablet (60 mg total) bymouth dailyQty: 30 tablet, Refills: 0metoprolol tartrate (LOPRESSOR) 25 MG tablet Take 0.5 tablets (12.5 mg total) bymouth 2 (two) times a dayQty: 30 tablet, Refills: 0CONTINUE these medications which have CHANGED DetailsamLODIPine (NORVASC) 5 MG tablet Take 1 tablet (5 mg total) by mouth dailyQty: 30 tablet, Refills: 0CONTINUE these medications which have NOT CHANGED DetailslevETIRAcetam (KEPPRA) 500 MG tablet Take 500 mg by mouth 2 (two) times a dayaspirin EC 81 MG EC tablet Take 81 mg by mouth dailychlorthalidone (HYGROTEN) 25 MG tablet Take 25 mg by mouth dailycitalopram (CELEXA) 20 MG tablet Take 20 mg by mouth dailyclopidogrel (PLAVIX) 75 MG tablet Take 75 mg by mouth dailydocusate sodium (COLACE) 100 MG capsule Take 1 capsule (100 mg total) by mouth 2(two) times a dayQty: 60 capsule, Refills: 5Evolocumab (REPATHA) 140 MG/ML SOSY Inject 140 mg under the skin every 14(fourteen) daysfamotidine (PEPCID) 20 MG tablet Take 20 mg by mouth 2 (two) times a dayFluticasone Furoate-Vilanterol (BREO ELLIPTA) 100-25 MCG/INH INHALER Inhale 1puff dailyHYDROcodone-acetaminophen (NORCO 10-325) 10-325 MG per tablet Take 1 tablet bymouth daily as needed for painlisinopril (PRINIVIL,ZESTRIL) 20 MG tablet Take 20 mg by mouth dailyMelatonin 5 MG CAPS Take 5 mg by mouth juan ynitroglycerin (NITROSTAT) 0.[address] 0.4 mg under the tongue asneededoxybutynin (DITROPAN) 5 MG tablet Take 5 mg by mouth 2 (two) times a daypolyethylene glycol (GLYCOLAX) packet Take 17 g by mouth dailyQty: 14 each, Refills: 5potassium chloride SA (K-DUR,KLOR-CON) 10 MEQ tablet Take 10 mEq by mouth dailypregabalin (LYRICA) 150 MG capsule Take 150 mg by mouth 2 (two) times a dayUmeclidinium [place] (INCRUSE ELLIPTA) 62.5 MCG/INH AEPB Inhale 1 puff dailyzolpidem (AMBIEN) 10 MG tablet Take 10 mg by mouth nightly as needed for sleepSTOP taking these medications atenolol (TENORMIN) 50 MG tabletFollow Up Instructions:The patient was given an after visit summary.Patient will follow up with PCP in 3-7 days.Cardiology call to scheduleItems needing special attention:CBC BMP with PCPBrief Hospital Course:In summary this is a very pleasant 79-year-old female who has known coronaryartery disease status post CABG x5 in 2001 last heart cath was in 2018 withpatent grafts including ESPINOSA to LAD patent stents in the right and leftcircumflex, she has preserved left ventricular function by echo performed inSeptember 2019She does have history of hypertension hyperlipidemia COPD on continuous home O2,GI bleeding currently no evidence of active bleedShe presented to the hospital secondary to fatigue and near syncopal episodeswith no evidence of documented seizure activity upon presentation to thehospital she was noted to have atypical chest painHer work-up revealed the followingEKG showed marked sinus bradycardia in the 40s with new bundle branch block andher heart rate on telemetry was in 30s with reported dizziness and fatigue noevidence of high degree AV block patient was off all negative chronotropicmedications as an outpatientCardiology was consulted and EP was consulted she underwent PPM placementHer symptomatology improved significantlyShe is now resuming beta-blockers post pacemaker placement and continue the restof her home medicationsPatient is currently stable for discharge follow-up with PCP and cardiology asan outpatientPatient was advised if there is any exacerbation of symptoms to seek medicalattention immediatelyAddendum on July 26, 2020Patient ended up staying as she developed chest pain and discomfort radiating toher left jawDiscussed with cardiology she is proceeding with cardiac catheterization todayImdur was addedIf cardiac cath is negative patient will proceed with discharge later in the dayDischarge Exam:Blood Pressure: BP: 126/62 Pulse: Heart Rate: 67Temperature: Temp: 97.5 F Respirations: Resp: 20Admission Weight: Weight: 78.7 kg (173 lb 9.6 oz) O2 Saturation: SpO2: 94 %Discharge Weight: Weight: 78.7 kg (173 lb 9.6 oz) BMI: Body mass index is 32.8kg/m .Physical Exam General alert oriented x3 answers questions appropriately she reports somechest discomfort similar to her anginal pain HEENT normocephalic atraumatic Lungs clear to auscultation Heart diminished air entry in the bases bilateral Abdomen soft, non-tender, non-distended, no organomegaly or masses Musculoskeletal negative Neuro mental status, speech normal, alert and oriented d4Ixpebtrbcjx:Imaging:Chest x-ray post pacemaker placementIMPRESSION: No pneumothorax or pleural effusion detected after pacemakerplacement.Procedures:Status post pacemaker placementConsultants:CardiologyRecent Labs:BMP:Lab ResultsComponent Value Date NA 138 07/26/2020 K 3.8 07/26/2020 CL 101 07/26/2020 CO2 28 07/26/2020 ANIONGAP 9 07/26/2020 CALCIUM 8.6 07/26/2020 GLU 100 (H) 07/26/2020 BUN 33 (H) 07/26/2020 CREATININE 0.81 07/26/2020 GFRAA >60 07/26/2020 GFRNONAA >60 07/26/2020Cardiac:Lab ResultsComponent Value Date TROPONINI <0.05 07/25/2020 PROBNP 399 07/23/2020CBC with Diff:Lab ResultsComponent Value Date WBC 6.1 07/26/2020 RBC 3.69 (L) 07/26/2020 HGB 10.8 (L) 07/26/2020 HCT 31.3 (L) 07/26/2020 MCV 84.8 07/26/2020 MCH 29.2 07/26/2020 MCHC 34.4 07/26/2020 RDW 15.3 (H) 07/26/2020 PLT 209 07/26/2020 MPV 7.3 07/26/2020 LYMPHOPCT 19.2 07/23/2020 MONOPCT 10.9 (H) 07/23/2020 EOSPCT 1.2 07/23/2020 BASOPCT 0.8 07/23/2020 NEUTROABS 4.9 07/23/2020 MONOABS 0.8 07/23/2020 BASOSABS 0.1 07/23/2020HgbA1c:Lab ResultsComponent Value Date HGBA1C 5.9 07/23/2020Hyperlipid emia:Lab ResultsComponent Value Date CHOL 114 07/23/2020 TRIG 94 07/23/2020 HDL 46 07/23/2020 CHOLHDL 2.5 07/23/2020 LDL 57 09/27/2017 LDLCALC 49 07/23/2020Thyroid:Lab ResultsComponent Value Date TSH 1.605 07/23/2020 TSH 2.2 03/16/2019Kai Dahl MD9:07 AMTotal time spent for discharge on date of discharge: 40 minutes Name Value Range Interpretation Code Description Data Ximena rce(s) Supporting Document(s) ID Date Data Source [id number] 07/26/2020 06:49:38 AM EST [facility] Name Value Range Interpretation Code Description Data Ximena rce(s) Supporting Document(s) EKG [facility] PCYEVw1dLqOEDdMae0AtGgLyHJKpGP3vgew7V1Z8yKHaP7ZmtTJnj1sfT6YcH9ZbGODaVLSWZT4GiBFi jb2 [file] sVtkGBL2Lc1GwhMeCMZyTPBSVs5Ju987PESvFCQBXel+VlgseQWweHcuHTCUPJYmPgTFIDBAI7Y= ID Date Data Source [id number] 07/26/2020 08:18:22 AM EST [facility] Name Value Range Interpretation Code Description Data Ximena rce(s) Supporting Document(s) SODIUM 138 mmol/L (136-145) [facility] POTASSIUM 3.8 mmol/L (3.6-5.2) [facility] CHLORIDE 101 mmol/L (100-108) [facility] CO2 28 mmol/L (22-31) [facility] ANION GAP 9 mmol/L (7-16) [facility] UREA NITROGEN 33 mg/dL (7-24) H [facility] CREATININE 0.81 mg/dL (0.60-1.00) [facility] BUN/CREAT RATIO 40.7 RATIO (10.0-20.0) H [facility] GLUCOSE 100 mg/dL (70-99) H [facility] CALCIUM 8.6 mg/dL (8.4-10.2) [facility] GFR >60 ml/min/1.73m2 (>59) [facility] GFR ( AMER) >60 ml/min/1.73m2 (>59) [facility] GFR INTERPRETATION [facility] --NORMAL KIDNEY FUNCTION OR MILD DISEASE - GFR >OR= 60CHRONIC KIDNEY DISEASE - GFR 15 - 59RENAL FAILURE - GFR <15 Est. GFR calculation based on the MDRDstudy equation, which assumes a steadystate for creatinine. Est. GFR should notbe used for medication dosing. ID Date Data Source [id number] 07/26/2020 07:58:44 AM EST [facility] Name Value Range Interpretation Code Description Data Ximena rce(s) Supporting Document(s) WBC 6.1 10*3/uL (4.1-11.0) [facility] RBC 3.69 10*6/uL (4.00-5.40) L [facility] HGB 10.8 g/dL (12.0-16.0) L [facility] HCT 31.3 % (36.0-47.0) L [facility] PERFORMED AT [address] [place] [address] [place] [address] MCV 84.8 fL (80.0-95.0) [facility] MCH 29.2 pg (27.0-32.0) [facility] MCHC 34.4 g/dL (32.0-36.0) [facility] RDW 15.3 % (10.5-14.5) H [facility] PLT 209 10*3/uL (150-450) [facility] MPV 7.3 fL (7.1-10.7) [facility] ID Date Data Source [id number] 07/26/2020 05:49:43 AM EST [facility] Name Value Range Interpretation Code Description Data Ximena rce(s) Supporting Document(s) EKG [facility] ETBYDn7kVhOVPcMvb6RtInFkGQViGE7rzyy2F7W9vELlJ4EpoWFqi6okQ2SnB2PuBEWpVTLTRU2WzMFx jb2 [file] DiNUZGR5Yyd0LrKIDnUQFKNx3+ExM3FEW6lWTgZma9ZeylHTcdXWYVCe== ID Date Data Source [id number] 07/25/2020 04:10:21 PM EDT [facility] Name Value Range Interpretation Code Description Data Ximena rce(s) Supporting Document(s) TROPONIN I <0.05 ng/mL (<0.05) [facility] Less than 0.05: Myocardial injury unlike lyGreater than or equal to 0.05: Highly suggestive of myocardial injuryCorrelation with rise and/or fall ofserial troponins, clinical symptomsand ECG changes is necessary. ID Date Data Source [id number] 07/25/2020 09:52:26 AM EDT [facility] NT INFORMATIONPatient MRN Name Date of Age Gend*PT [id number] Flora Mijares 1940 79 years F OBSPT Location Admission Date/Time Visit ID Attending [id number] 07/23/202045 --- Kai Dahl MD([id number]) EPI ID CSN Admitting Provider [id number] Pauline Hernandez MD([id number]) [facility] DISCHARGE SUMMARYPatient Name: Flora Mijares of : 1940 Age 79 yearsPrimary Physician: HELIO ZABALA MD PCP Buvjasnel Date: 07/23/2020 Discharge Date:She will be discharged from [facility] Diagnoses:Principal Problem:Symptomatic bradycardia status post PPM placementActive Problems: Pulmonary HTN COPD (chronic obstructive pulmonary disease) Neuropathy TODD (obstructive sleep apnea) Pulmonary hypertension Gastroesophageal reflux disease Cardiomegaly Bradycardia History of stent insertion of renal artery RBBB Supplemental oxygen dependent Seizure DiverticulosisDischarge Medications:Current Discharge Medication ListCONTINUE these medications which have NOT CHANGED DetailslevETIRAcetam (KEPPRA) 500 MG tablet Take 500 mg by mouth 2 (two) times a dayamLODIPine (NORVASC) 10 MG tablet Take 10 mg by mouth dailyaspirin EC 81 MG EC tablet Take 81 mg by mouth dailychlorthalidone (HYGROTEN) 25 MG tablet Take 25 mg by mouth dailycitalopram (CELEXA) 20 MG tablet Take 20 mg by mouth dailyclopidogrel (PLAV IX) 75 MG tablet Take 75 mg by mouth dailydocusate sodium (COLACE) 100 MG capsule Take 1 capsule (100 mg total) by mouth 2(two) times a dayQty: 60 capsule, Refills: 5Evolocumab (REPATHA) 140 MG/ML SOSY Inject 140 mg under the skin every 14(fourteen) daysfamotidine (PEPCID) 20 MG tablet Take 20 mg by mouth 2 (two) times a dayFluticasone Furoate-Vilanterol (BREO ELLIPTA) 100-25 MCG/INH INHALER Inhale 1puff dailyHYDROcodone-acetaminophen (NORCO 10-325) 10-325 MG per tablet Take 1 tablet bymouth daily as needed for painlisinopril (PRINIVIL,ZESTRIL) 20 MG tablet Take 20 mg by mouth dailyMelatonin 5 MG CAPS Take 5 mg by mouth dailynitroglycerin (NITROSTAT) 0.[address] 0.4 mg under the tongue asneededoxybutynin (DITROPAN) 5 MG tablet Take 5 mg by mouth 2 (two) times a daypolyethylene glycol (GLYCOLAX) packet Take 17 g by mouth dailyQty: 14 each, Refills: 5potassium chloride SA (K-DUR,KLOR-CON) 10 MEQ tablet Take 10 mEq by mouth dailypregabalin (LYRICA) 150 MG capsule Take 150 mg by mouth 2 (two) times a dayUmeclidinium [place] (INCRUSE ELLIPTA) 62.5 MCG/INH AEPB Inhale 1 puff dailyzolpidem (AMBIEN) 10 MG tablet Take 10 mg by mouth nightly as needed for sleepSTOP taking these medications atenolol (TENORMIN) 50 MG tabletFollow Up Instructions:The patient was given an after visit summary.Patient will follow up with PCP in 3-7 days.Cardiology call to scheduleItems needing special attention:AMRIT BMP with PCPBrief Hospital Course:In summary this is a very pleasant 79-year-old female who has known coronaryartery disease status post CABG x5 in 2001 last heart cath was in 2018 withpatent grafts including ESPINOSA to LAD patent stents in the right and leftcircumflex, she has preserved left ventricular function by echo performed inSept2018Shdwayne does have history of hypertension hyperlipidemia COPD on continuous home O2,GI bleeding currently no evidence of active bleedShe presented to the hospital secondary to fatigue and near syncopal episodeswith no evidence of documented seizure activity upon presentation to thehospital she was noted to have atypical chest painHer work-up revealed the followingEKG showed marked sinus bradycardia in the 40s with new bundle branch block andher heart rate on telemetry was in 30s with reported dizziness and fatigue noevidence of high degree AV block patient was off all negative chronotropicmedications as an outpatientCardiology was consulted and EP was consulted she underwent PPM placementHer symptomatology improved significantlyLauren is now resuming beta-blockers post pacemaker placement and continue the restof her home medicationsPatient is currently stabl e for discharge follow-up with PCP and cardiology asan outpatientPatient was advised if there is any exacerbation of symptoms to seek medicalattention immediatelyDischarge Exam:Blood Pressure: BP: 117/54 Pulse: Heart Rate: 62Temperature: Temp: 97.8 F Respirations: Resp: 18Admission Weight: Weight: 78.7 kg (173 lb 9.6 oz) O2 Saturation: SpO2: 96 %Discharge Weight: Weight: 78.7 kg (173 lb 9.6 oz) BMI: Body mass index is 32.8kg/m .Physical Exam General alert, in no apparent distress HEENT Normal Lungs clear to auscultation Heart regular rate and rhythm Abdomen soft, non-tender, non-distended, no organomegaly or masses Musculoskeletal negative Neuro mental status, speech normal, alert and oriented [id number]:Imaging:Chest x-ray post pacemaker placementIMPRESSION: No pneumothorax or pleural effusion detected after pacemakerplacement.Procedures:Status post pacemaker placementConsultants:CardiologyRecent Labs:BMP:Lab ResultsComponent Value Date NA 138 07/25/2020 K 4.0 07/25/2020 CL 101 07/25/2020 CO2 28 07/25/2020 ANIONGAP 9 07/25/2020 CALCIUM 8.9 07/25/2020 GLU 85 07/25/2020 BUN 18 07/25/2020 CREATININE 0.61 07/25/2020 GFRAA >60 07/25/2020 GFRNONAA >60 07/25/2020Cardiac:Lab ResultsComponent Value Date TROPONINI <0.05 07/23/2020 PROBNP 399 07/23/2020CBC with Diff:Lab ResultsComponent Value Date WBC 7.4 07/25/2020 RBC 4.04 07/25/2020 HGB 12.2 07/25/2020 HCT 35.2 (L) 07/25/2020 MCV 87.3 07/25/2020 MCH 30.1 07/25/2020 MCHC 34.5 07/25/2020 RDW 15.1 (H) 07/25/2020 PLT 218 07/25/2020 MPV 7.2 07/25/2020 LYMPHOPCT 19.2 07/23/2020 MONOPCT 10.9 (H) 07/23/2020 EOSPCT 1.2 07/23/2020 BASOPCT 0.8 07/23/2020 NEUTROABS 4.9 07/23/2020 MONOABS 0.8 07/23/2020 BASOSABS 0.1 07/23/2020HgbA1c:Lab ResultsComponent Value Date HGBA1C 5.9 07/23/2020Hyperlipidemia:Lab R esultsComponent Value Date CHOL 114 07/23/2020 TRIG 94 07/23/2020 HDL 46 07/23/2020 CHOLHDL 2.5 07/23/2020 LDL 57 09/27/2017 LDLCALC 49 07/23/2020Thyroid:Lab ResultsComponent Value Date TSH 1.605 07/23/2020 TSH 2.2 03/16/2019Kai Dahl MD7:39 AMTotal time spent for discharge on date of discharge: 40 minutes Name Value Range Interpretation Code Description Data Ximena rce(s) Supporting Document(s) ID Date Data Source [id number] 07/25/2020 09:44:12 AM EDT [facility] Name Value Range Interpretation Code Description Data Ximena rce(s) Supporting Document(s) EKG [facility] KBJQOn6gArMQYcClf2ZgDtLcGBPfQP1pnuq6U5G7iIIrD8GgpZWbs3fcC8NzV3IqQIFeSNEEKO3FjLWt jb2 [file] Yagcfxgqxx+T8KVBDWr5UGucllwE061fkkzXZBBWxQ MSS3qzMYOoT1p+roxZIe3WoX+nvALNABdiZf2CcJsRTEIeeNhBHKJszX1wYDT73gGtQ3rigyNjykywGr FZPyzKhI9HGYyFajHx/dBUfb6FYKpngbGGutfnDPBAHXyJ4WgL6H+UPNgX0UTYenkZsCMbJ2miUrBn+r XRgOJNErSkjvoxJStZ9HAdscnQcDKYBIAdnkAxB/pl Ww2cXpRcT1QogUgE7YITiuqatMAhhg7oLT9/Ty4BAICuMbeL6g7E2pmvZ/QBopFauJF18UByqLT1qUgs XjIhymJPE+cgpnOIVqCsH0cncr9mVtlPkd87dvTWHouDPeZMfcAIoPKwwWhfpabyHeF4mAGlQ+ndal/p 3UtTiOvISu+pkDgieAwnbCcoBIl8rXCgPXr7OUcsRE u/zv+R1A/екатерина/ItXg+4ec8M+6C22r1BbMplYp2+UoLh3g6FLqQL9TnyFV4aHFu3am9V+2+v+blpeY7VQ [file] 5N5380K9H4uxkX0K3/vH2a947PT6+9m91T1IdDfwzotJu5oed4//mcY9f0L8ubWFNWn5e2LGw/5V4d04 /jhN3zcC3K1IU60KkaW7RyjOb195lt+jPwf6c+D5Bp 4v/BnKtW0I/hyQC/9qpH+LltpcGw9iUowMNM0Lv/5NR14lw6+FOofL7Au9H2kW1fA2f5rQd9Tr6nK2P6 edb+sJNPwZxXP+sVeR1z/2qq6f/cRrUd23KSwsT2ujZc0z8ufH3mqgA3+/M+4L3B7z3fvG+LTzzHNOO5 /v+8zcu55ucsV84o36ubR366ZChdoAKPcTS5MUiopf Ws+6K7ub5q66myaqoh6uF7ib7x+p8hk4ao8F3KzSekWhu2Ib6R497KFiPVeqvydU9dbJ/z6E0Z53AKP2 uKilJzgZEXBcf427qPrhh0/y0Q86JiK44d5u++0T/tUs/yp/a449Wa5ZY/2r3Ec6/vlm1404vtm/z3Ho uy93+eoz/auV+2+wood coater/nuy12+6YjKnH704uYrz67nYR yiNcjHfmwHQnvv67+Zvcg65CKOov2/Leandro/R+zgY6/RQn0ndsJLJ4ngmGJ2Xqzvi+LgBs08btWMuxpLDM [file] Rg== ID Date Data Source [id number] 07/25/2020 09:24:57 AM EDT [facility] Name Value Range Interpretation Code Description Data Ximena rce(s) Supporting Document(s) SODIUM 138 mmol/L (136-145) [facility] POTASSIUM 4.0 mmol/L (3.6-5.2) [facility] CHLORIDE 101 mmol/L (100-108) [facility] CO2 28 mmol/L (22-31) [facility] ANION GAP 9 mmol/L (7-16) [facility] UREA NITROGEN 18 mg/dL (7-24) [facility] CREATININE 0.61 mg/dL (0.60-1.00) [facility] BUN/CREAT RATIO 29.5 RATIO (10.0-20.0) H [facility] GLUCOSE 85 mg/dL (70-99) [facility] CALCIUM 8.9 mg/dL (8.4-10.2) [facility] GFR >60 ml/min/1.73m2 (>59) [facility] GFR ( AMER) >60 ml/min/1.73m2 (>59) [facility] GFR INTERPRETATION [facility] --NORMAL KIDNEY FUNCTION OR MILD DISEASE - GFR >OR= 60CHRONIC KIDNEY DISEASE - GFR 15 - 59RENAL FAILURE - GFR <15 Est. GFR calculation based on the MDRDstudy equation, which assumes a steadystate for creatinine. Est. GFR should notbe used for medication dosing. ID Date Data Source [id number] 07/25/2020 09:03:05 AM EDT [facility] Name Value Range Interpretation Code Description Data Ximena rce(s) Supporting Document(s) WBC 7.4 10*3/uL (4.1-11.0) [facility] RBC 4.04 10*6/uL (4.00-5.40) [facility] HGB 12.2 g/dL (12.0-16.0) [facility] HCT 35.2 % (36.0-47.0) L [facility] PERFORMED [place] [address] [place] [address] MCV 87.3 fL (80.0-95.0) [facility] MCH 30.1 pg (27.0-32.0) [facility] MCHC 34.5 g/dL (32.0-36.0) [facility] RDW 15.1 % (10.5-14.5) H [facility] PLT 218 10*3/uL (150-450) [facility] MPV 7.2 fL (7.1-10.7) [facility] ID Date Data Source [id number] 07/24/2020 09:36:55 PM EDT [facility]PAT[facility] NT INFORMATIONPatient MRN Name Date of Age Gend*PT [id number] Flora Mijares 1940 79 years F OBSPT Location Admission Date/Time Visit ID Attending ProviderD-[id number] 07/23/202045 --- Kai Dahl MD([id number]) EPI ID CSN Admitting Provider [id number] Pauline Hernandez MD([id number])INPATIENT EP CONSULT NOTEPatient Name: Flora Mijares of : 1940 Age: 79 yearsGender: female Primary Physician: FAMILIA VANCEate of Referral: 07/24/2020 PCP [id number] PHYSICIAN: Facundo Arana M.D.REASON FOR REFFERAL: SSSHISTORY OF PRESENT ILLNESS:Flora Mijares is a 79 years female with medical problems of CABG x 5 in 2001,preserved LV normal by echo 05/2019, hypertension, hyperlipidemia, COPD on homeO2 cared for by Dr Gil presents with . Syncope, HR 30s awke, RBBBEP service was consulted because of consideration of PPMSymptoms began few months ago, characterized by fatigue and weaness.Associated with lightheadedness Exacerbated by exertion. Improved by restIntensity of symptoms: severe.history was taken from ptFamily was not present during interviewPAST MEDICAL HISTORY:Past Medical History:Diagnosis Date Cardiac catheterization 10/2014 LV EF 55%, inferior hypokinesis.PAP 46/19. PCWP 14. 30% LM. Patent stents inpLCx and mLCx. Patent stents in pLAD and mLAD. Patent ESPINOSA to dLAD. Patent stentdRCA. Cardiac catheterization 11/14/2017 Patent ESPINOSA to LAD, patent stents in RCA, LCX and LAD. Non-significant InStentrestenosis in diagonal artery. Cardiac PET 07/2016 Small fixed inferolateral defect. No ischemia. LV EF 70%. Cardiomegaly COPD (chronic obstructive pulmonary disease) Coronary angioplasty status 07/13/2016 Coronary artery disease Diverticulosis Echocardiogram 11/28/2019 Normal LV size. Mild LVH. LVEF 55-65%. Grade 1 diastolic dysfunction. Minimalmitral stenosis (mean gradient 3.1 mmHg). Normal CVP and likely mild pulmonaryHTN. Severe left atrial enlargement. 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 Perfu raymundo study shows infarction. Cannotrule out that small fixed defect in inferior basal is d/t attenuation. LEVF 58%.Suggestive of RV enlargement and septal wall motion abnormality. These suggestpresence of pulmonary HTN. PUD (peptic ulcer disease) 2009 Bleeding duodenal ulcer Pulmonary hypertension Secondary pulmonary hypertension 07/13/2016 Seizure Spirometry 09/2017 96% FVC, 77% [id number] SURGICAL HISTORY:Past Surgical History:Procedure Laterality Date APPENDECTOMY APPENDECTOMY N/A 03/23/2019 Procedure: APPENDECTOMY LAPAROSCOPY; Surgeon: Ilan lGasgow MD; Laterality:N/A; 1638 03/23/19 CARDIAC CATHETERIZATION N/A 11/14/2017 Procedure: Cardiac catheterization; Surgeon: Nneka Lewis MD; Laterality:N/A; CARDIAC CATHETERIZATION N/A 11/14/2017 Procedure: Angioplasty-coronary; Surgeon: Nneka Lewis MD; Laterality:N/A; CARDIAC SURGERY COLONOSCOPY CORONARY ANGIOPLASTY WITH STENT PLACEMENT CORONARY ARTERY BYPASS GRAFT 2001 EYE SURGERY HERNIA REPAIR renal stents right elbow surgery TUBAL LIGATIONMEDICATIONS:Scheduled Meds: amLODIPine 10 mg Oral Daily aspirin EC 81 mg Oral Daily chlorthalidone 25 mg Oral Daily citalopram 20 mg Oral Daily clopidogrel 75 mg Oral Daily famotidine 20 mg Oral BID heparin (porcine) 5,000 Units Subcutaneous Q12H ALEK Influenza Vac Split Quad 0.5 mL Intramuscular During hospitalization ipratropium 0.5 mg Nebulization QID levETIRAcetam 500 mg Oral BID lisinopril 20 mg Oral Daily mometasone-formoterol 2 puff Inhalation Daily normal saline flush 3 mL Intravenous Q8H ALEK normal saline flush 3 mL Intravenous Q8H ALEK oxybutynin 5 mg Oral BID pregabalin 150 mg Oral BIDContinuous Infusions:PRN Meds:.acetaminophen, atropine sulfate, nitroglycerin, ondansetronALLERGIES:No Known Drug AllergiesSOCIAL HISTORY:Social HistoryTobacco Use Smoking status: Former Smoker Packs/day: 2.00 Years: 40.00 Pack years: 80.00 Types: Cigarettes Last attempt to quit: 2001 Years since quittin.8 Smokeless tobacco: Never UsedSubstance Use Topics Alcohol use: No.FAMILY HISTORY:Family HistoryProblem Relation Age of Onset COPD Mother Cancer FatherReview of Systems:Pertinent positives as mentioned in the HPI. Denies recent fever, chills, orchange in appetite. Denies unilateral weakness, numbness, slurred speech, orfacial droop. Denies any hematemesis, hematochezia, or melena. Deniesnausea, vomiting, diarrhea, or abdominal pain. All other systems were reviewedand the remainder are negative.PHYSICAL EXAMINATION:Vital Signs:Vitals: 07/24/20 1454BP: 116/56Pulse: (!) 47Resp: 18Temp: 97.8 FSpO2: 95%General: elderly fragile NAD.HEENT: externally normalNeck: Supple. No carotid bruits. No lymphadenopathy or thyromegalyLungs: Clear to auscultation bilaterally, no rales/rhonchi/wheezes.CV: Regular rate & rhythm, no murmurs, rubs, or gallops. Normal S1/S2. TheJVP is <8 cm.Abd: Soft, non- tender, non-distended.Extremities: No edema; no cyanosis or clubbing.Skin: Warm & dry, without jaundice or bruising.Psych: A&O x3, affect appropriate.Neuro: grossly normalPERTINENT LABS:Results from last 7 daysLab Units [id number] g/dL 12.6 13.3HEMATOCRIT % 36.0 39.5PLATELETS 10*3/uL 225 251SODIUM mmol/L 136 135*POTASSIUM mmol/L 4.0 3.9CHLORIDE mmol/L 100 99*CO2 mmol/L 27 27BUN mg/dL 19 20CREATININE mg/dL 0.61 0.65GLUCOSE mg/dL 86 81CALCIUM mg/dL 8.5 9.0DIAGNOSTIC DATA:I personally reviewedEKG: denise atrial rhythm, RBBBTele: low atrial rhythm, sinus bradyFINAL DIAGNOSES:1. Pre-Syncope2. SSS3. RBBB4. CABG x5 in . hypertension, hyperlipidemia,6. COPD on home C6Gqdcyruyou:he patient presents with symptomatic bradycardia, as evidenced by heart ratesas low as 30 bpm during wake hours including sx of lightheadedness andfatigue. The underlying rhythm is normal sinusEF Is normal%, so a dual pacemaker is indicated.PLAN:1. Dual PPM2. Procedure was discussed with patient / family risks, benefits, andalternatives explained. Potential risks include but not limited to pain,bleeding, infection, injury to any body system or organ between the skin andheart (including the skin, subcutaneous tissue, blood vessels, abdominal organs,heart, and lungs), possible need for a heart surgery, heart attack, stroke, oreven .Facundo Arana M.D., [facility], RSClinical Cardiac Zqohvjiqntmzqnxxq54/30/2020 3:56 PM Name Value Range Interpretation Code Description Data Ximena rce(s) Supporting Document(s) ID Date Data Source [id number] 07/24/2020 07:11:50 PM EDT [address] [id number] Name: FLORA ESQUIVELB: 2Sex: FOrdering Provider: Rene Malcolm Prov: Rene Victor Provider: Procedure Performed: XR CHEST PORTABLEExam Date: 07/24/2020 19:08MRN: [id number] Number: [id number] Class: OutpatientAccount #: [id number] for Exam: ppmTechnique: AP portable view obtained.Comparison: July 23, 2020Findings: Pacemaker right chest wall with leads extending to the right atrium and right ventricle.No pneumothorax or pleural effusion.Poor inflation with mild left basilar atelectasis.Sternal wires and surgical clips overlie the mediastinum.The bones are osteopenic.IMPRESSION: No pneumothorax or pleural effusion detected after pacemaker placement.Report electronically signed by: KELLI MORE On 07/24/2020 7:11 PMWorkstation ID: [id number] Name Value Range Interpretation Code Description Data Ximena rce(s) Supporting Document(s) ID Date Data Source [id number] 07/24/2020 06:12:52 PM EDT [facility] Name Value Range Interpretation Code Description Data Ximena rce(s) Supporting Document(s) &PDF [facility] BIXJCd5sNyJGOvWj83/BIZkvEWVpg1VkKLwmZJd8AKneVXTaK4DgcAuuDJxSJxoISI9jWHGLPT2oCJBu waW [file] r8S95ttGArKRcpFR8MFCT+Yvan+Om8ZBMVcKQBuOKWxTqVfMIOWVyRfM4BhG9GWx3PgO0JxVT93mLtutf ZaPWejGB8XIW4sHHBqTTDRHZ5SlLYawF8ncvQ3YBKa DAZLStAiV57ueFEpDDRqRRB9VEEeUp5HBTUpM2SbmpZfxAlfooIyUHYeIQDQIB6MOOpeubAukEFpdMhr CY96tVldKG7DLf2ZMrBoLF0kfo0WzYNaYg2IAAT1BA4OYXSyXXDeERWfFLE0KOKsOuFtAIadJXWxBSQi CMT5GWXtIOOqSJ4OTsVeSHNpTGZ1GOcePDUvNYJdbi 1BBQYvAJL5KHN1MBUuTEDuLCLmNXdaNGWsQOYvRLl9LZWtPFEdBQ7IHtRmXAAnQFP3NOOgMKChBQAnae 8PAXZgQPM5GQo5POLxTUBuTCKjXSxlPKQdCZC2SWUkHKTjCKKnBG0MJeBqJFEzUSfhNLUuPMTtBOOqln 9JFFEgGEZ3GNE1HQShOSToDLQpRVezDHOuSAB2QoC0 YKEzPBCxKY3XTsSfSUUeDSy0LJPfJSYgBETbyq4MDAKoRHE7PJr3YpZtDIDaDOKoMJggIAVlOKQxJOBp QOKgBRRsXJ2DDlLtXXRmHARoJdHfVSHyKUWdqf2VNDHlQRA0WWE0HCCiBRVqTXKwWRzzGXQvYPAeOfL9 RJBaIFXwBZ8YSsDeUFXgFJY6YkSbGIYkJWPwkf2ZTP BqYTX6ABv8JdBhDCXkGZVsYWizQCJsHNAbUMctETWuUWWoRV4ZKyGvYEXqYCA9TSeqFVHnFUTtlf0XVI JbXPDrUrV4EUBtTFVrCIDsMEzvWYOvGUX9Hax6TBKnEAAsFO2RVrZfQAZuCOtcAuSpAOVlYFSgmv8FGK YlADGzNFLhUVEzTILeQZGsRXodUGBfOGIxLKs7WZTd UMBaSC7HWmRtKXCmVQZhEEFlSMEcDSLxue5ZXFNrZMUuNQN9IDTaDOHiRFYnMMqsJJXmCYBnAKH6LWLl RGGpWU0VIlQuYPTgBCA9BpmsDQCbRIDzfw3FLNAmSCHiWQpyZvGrDISdUGTlIUhlMERlXJJjLUB2MXSi PTIcYR2FFvDbMPWmZyL1HNzhBKLlTITqxj4IHQDzFX RcYNAtKsQgKUMiPFVpCPfqRXVrZJK4UwH3QSPmIAIoOB1UZhNdLQClRwJ6CJGbXHXkJDKukp1OUJFhIP HzIEc7RAInXZEcDXGnEJdqYADtNZM6ESpdMLEmDCJpCP7OEdPzYFLrKiBqKVvxZBRdURAewu1HMPWyCX JzGnYjDQVlYNVcUVWqWLwuTHYmCGB2UcdiMWKaXNRn ZD1FOhZyOUMsNhl8JGYpBGCeCXYxyg9TZEPbUCV5XbHaTDCnEHRsYQSwUOhyOVRjEFP6FHv8BNGoGXNi OK1ZIkCuTGVwNFsmELwwDEHuHAWwst8CICPePFW6IDxwHGAjUDAkVZCwOSfeBIGmKWP4AZysLXPwBVSo VT8ZVyYiZBIaGWDpKQlzYIEnLCHmiq2NkUHccAlhvp 2KUYdRYw8GnQnyWXR9UZmrAw4swNF6QgHpXEZLVj0TqrCvXAJwZXDSKPveJXLwZALmBpM3BIMpDwZgUF SfEFK5M7I6EjviIVZoRzLpXEq2DwS0FSZ9CEy4I2NqQcL5IxW9ZpG5HZPtPVQhIoDiAjYzMBU+IF0gDQ o+Wo7Ts0BcfdD2xsFgIYb7SYU6EP5HUKMUM1PZAs== ID Date Data Source [id number] 07/24/2020 09:26:04 AM EDT [facility]PAT[facility] NT INFORMATIONPatient MRN Name Date of Age Gend*PT [id number] Flora Mijares 1940 79 years F OBSPT Location Admission Date/Time Visit ID Attending [id number] 07/23/202045 --- Kai Dahl MD([id number]) EPI ID CSN Admitting Provider [id number] Pauline Hernandez MD([id number])Cardiology History and PhysicalName: Flora Mijares Gender: femaleDate of : 1940 Age: 79 yearsDate/Time of Admit: 07/23/2020 8:46 PM Code Status: DNR (Do NOT attempt CPR)Primary Care ProviderReferring Physician: ALBERT ALVARES, Colton Dahl [facility] Complaint: Chest painReason for consult: BradycardiaHPI: 79-year-old lady a patient of Dr. Brandt known to have coronary arterydisease status post CABG x5 in 2001 last heart catheterization in 2018 withpatent grafts including ESPINOSA to L AD patent stents in the right and leftcircumflex has preserved LV function by echocardiogram performed in May2019 history of hypertension hyperlipidemia COPD on continuous home O2 previousGI bleeding currently stable hematocrit, patient had been complaining ofprogressively worsening fatigue tiredness had been evaluated recently for newonset seizures upon questioning patient reports symptoms consistent with syncopeand near syncopal episodes with no evidence of documented seizures activityuponpresentation to the hospital with atypical chest pain patient insists thatthis is different than my typical anginal symptoms that I had in the past shereports that she was just feeling heavy in the chest with the significantdifficulty breathing and dizziness upon mild activities discomfort and shortnessof breath were did not resolve with 3 nitroglycerin patient has no increase introponin her EKG showed marked sinus bradycardia in the low 40s with new rightbundle branch block her telemetry showed heart rates as low as 30s with noevidence of high degree AV block it is worth mentioning that patient is off allnegative chronotropic medications as an outpatient. No bleeding per any orificeno thyroid dysfunction compliant with medications and lifestyle modificationsincluding oxygen use.HistoryPast Medical History:Diagnosis Date Cardiac catheterization 10/2014 LV EF 55%, inferior hypokinesis.PAP 46/19. PCWP 14. 30% LM. Patent stents inpLCx and mLCx. Patent stents in pLAD and mLAD. Patent ESPINOSA to dLAD. Patent stentdRCA. Cardiac catheterization 11/14/2017 Patent ESPINOSA to LAD, patent stents in RCA, LCX and LAD. Non-significant InStentrestenosis in diagonal artery. Cardiac PET 07/2016 Small fixed inferolateral defect. No ischemia. LV EF 70%. Cardiomegaly COPD (chronic obstructive pulmonary disease) Coronary angioplasty status 07/13/2016 Coronary artery disease Diverticulosis Echocardiogram 11/28/2019 Normal LV size. Mild LVH. LVEF 55-65%. Grade 1 diastolic dysfunction. Minimalmitral stenosis (mean gradient 3.1 mmHg). Normal CVP and likely mild pulmonaryHTN. Severe left atrial enlargement. 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 Perfusion study shows infarction. Cannotrule out that small fixed defect in inferior basal is d/t attenuation. LEVF 58%.Suggestive of RV enlargement and septal wall motion abnormality. These suggestpresence of pulmonary HTN. PUD (peptic ulcer disease) 2010 Bleeding duodenal ulcer Pulmonary hypertension Secondary pulmonary hypertension 07/13/2016 Seizure Spirometry 09/2017 96% FVC, 77% CGO2Dexm Surgical History:Procedure Lateral ity Date APPENDECTOMY APPENDECTOMY N/A 03/23/2019 Procedure: APPENDECTOMY LAPAROSCOPY; Surgeon: Ilan Glasgow MD; Laterality:N/A; 1638 03/23/19 CARDIAC CATHETERIZATION N/A 11/14/2017 Procedure: Cardiac catheterization; Surgeon: Nneka Lewis MD; Laterality:N/A; CARDIAC CATHETERIZATION N/A 11/14/2017 Procedure: Angioplasty-coronary; Surgeon: Nneka Lewis MD; Laterality:N/A; CARDIAC SURGERY COLONOSCOPY CORONARY ANGIOPLASTY WITH STENT PLACEMENT CORONARY ARTERY BYPASS GRAFT 2001 EYE SURGERY HERNIA REPAIR renal stents right elbow surgery TUBAL LIGATIONSocial HistorySocioeconomic History Marital status: Spouse name: Not on file Number of children: Not on file Years of education: Not on file Highest education level: Not on fileOccupational History Occupation: Retired Comment[place] 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 resource strain: Not hard at all Food insecurity: Worry: Never true Inability: Never true Transportation needs: Medical: No Non-medical: NoTobacco Use Smoking status: Former Smoker Packs/day: 2.00 Years: 40.00 Pack years: 80.00 Types: Cigarettes Last attempt to quit: 2001 Years since quittin.8 Smokeless tobacco: Never UsedSubstance and Sexual Activity Alcohol use: No Drug use: No Sexual activity: Not on fileLifestyle Physical activity: Days per week: Not on file Minutes per session: Not on file Stress: Not on fileRelationships Social connections: Talks on phone: Not on file Gets together: Not on file Attends mormonism service: Not on file Active member of club or organization: Not on file Attends meetings of clubs or organizations: Not on file Relationship status: Not on file Intimate partner violence: Fear of current or ex partner: Not on file Emotionally abused: Not on file Physically abused: Not on file Forced sexual activity: Not on fileOther Topics Concern Bike Helmet Not Asked History of Falls Not Asked Self-Exams Not Asked Caffeine Concern Not Asked Hobby Hazards Not Asked Sleep Concern Not Asked Daily Calcium Supplement Not Asked Lead Exposure Not Asked Special Diet Not Asked Daily Vitamin D Supplement Not Asked Service Not Asked Stress Concern Not Asked Domestic Violence in home Not Asked Radon exposure Not Asked Weight Concern Not Asked Exercise Not Asked Seat Belt Not Asked Well water Not Asked Firearms in home Not AskedSocial History Narrative Has been sedentary d/t COVID-19Family HistoryProblem Relation Age of Onset COPD Mother Cancer FatherMedications & AllergiesAllergies: No Known Drug AllergiesMedications:Medications Prior to AdmissionMedication Sig levETIRAcetam (KEPPRA) 500 MG tablet Take 500 mg by mouth 2 (two) times a day [DISCONTINUED] LEVETIRACETAM ER PO Take by mouth amLODIPine (NORVASC) 10 MG tablet Take 10 mg by mouth daily aspirin EC 81 MG EC tablet Take 81 mg by mouth daily atenolol (TENORMIN) 50 MG tablet Take 50 mg by mouth daily chlorthalidone (HYGROTEN) 25 MG tablet Take 25 mg by mouth daily citalopram (CELEXA) 20 MG tablet Take 20 mg by mouth daily clopidogrel (PLAVIX) 75 MG tablet Take 75 mg by mouth daily docusate sodium (COLACE) 100 MG capsule Take 1 capsule (100 mg total) by mouth2 (two) times a day Evolocumab (REPATHA) 140 MG/ML SOSY Inject 140 mg under the skin every 14(fourteen) days famotidine (PEPCID) 20 MG tablet Take 20 mg by mouth 2 (two) times a day Fluticasone Furoate-Vilanterol (BREO ELLIPTA) 100-25 MCG/INH INHALER Inhale 1puff daily HYDROcodone-acetaminophen (NORCO 10-325) 10-325 MG per tablet Take 1 tablet bymouth daily as needed for pain lisinopril (PRINIVIL,ZESTRIL) 20 MG tablet Take 20 mg by mouth daily Melatonin 5 MG CAPS Take 5 mg by mouth daily nitroglycerin (NITROSTAT) 0.[address] 0.4 mg under the tongue asneeded oxybutynin (DITROPAN) 5 MG tablet Take 5 mg by mouth 2 (two) times a day polyethylene glycol (GLYCOLAX) packet Take 17 g by mouth daily potassium chloride SA (K-DUR,KLOR-CON) 10 MEQ tablet Take 10 mEq by mouthdaily pregabalin (LYRICA) 150 MG capsule Take 150 mg by mouth 2 (two) times a day Umeclidinium [place] (INCRUSE ELLIPTA) 62.5 MCG/INH AEPB Inhale 1 puff daily zolpidem (AMBIEN) 10 MG tablet Take 10 mg by mouth nightly as needed for sleep Scheduled Meds: amLODIPine 10 mg Oral Daily aspirin EC 81 mg Oral Daily chlorthalidone 25 mg Oral Daily citalopram 20 mg Oral Daily clopidogrel 75 mg Oral Daily famotidine 20 mg Oral BID heparin (porcine) 5,000 Units Subcutaneous Q12H ALEK Influenza Vac Split Quad 0.5 mL Intramuscular During hospitalization ipratropium 0.5 mg Nebulization QID levETIRAcetam 500 mg Oral BID lisinopril 20 mg Oral Daily mometasone-formoterol 2 puff Inhalation Daily normal saline flush 3 mL Intravenous Q8H ALEK normal saline flush 3 mL Intravenous Q8H ALEK oxybutynin 5 mg Oral BID pregabalin 150 mg Oral BIDContinuous Infusions:PRN Meds:.acetaminophen, atropine sulfate, nitroglycerin, ondansetronReview of Systems General + dizziness or lightheadedness. Denies any recent, unexpected weightchanges. HEENT Denies any loss or change of vision. Respiratory no PND, orthopnea,hemoptysis, cough, + shortness of breath, +[place]. Cardiac + chest pain or pressure, no palpitations GI Denies melena, hematochezia,no nausea, or vomiting. MS Denies warm or swollen joints. Neuro no speech, motor, or sensory impairment. Psych rene depression or anxiety. Endo Denies polyuria or polydipsia, denies temperature intolerance. Derm Denies diaphoresis, non-healing skin woundsPhysicalTemp (24hrs), Av.7 F, Min:97.5 F, Max:98.2 FBlood Pressure: BP: 132/60 Pulse: Heart Rate: (!) 45Temperature: Temp: 97.5 F Respirations: Resp: 18Admission Weight: Weight: 78.7 kg (173 lb 9.6 oz) O2 Saturation: SpO2: 100 %Today's Weight: Weight: 78.7 kg (173 lb 9.6 oz) BMI: Body mass index is 32.8kg/m .Intake/Output Summary (Last 24 hours) at 07/24/2020 0840Last data filed at 07/23/2020 2339Gross per 24 hourIntake 240 mlOutput Net 240 mlPhysical Exam General Well developed, well nourished, no acute distress Neck No JVD, no bruits Chest Non-tender to palpation Lungs Clear to auscultation, no crackles, rhonchi, or wheezes Heart Normal S1 S2, no murmurs, rub, or gallops Abdomen Soft, non-tender, non-distended, no palpable HSM or masses, + bowelsounds Neuro AAOx3, no focal motor or sensory deficit Derm No rashes, or ulcers Extremities no cyanosis, no clubbing and no edema.DiagnosticsABGs:Lab ResultsComponent Value Date A1YQBZLC VENT 03/23/2019 POCSOURCE ARTERIAL 03/23/2019 POCFIO2 40 03/23/2019 POCPHT 7.37 03/23/2019 POCPCO 42.4 03/23/2019 POCPO2 77 (L) 03/23/2019 THCO3 24.6 03/23/2019 POCRATE 22 03/23/2019 POCPEEP 6 03/23/2019 POCTEMP TEST NOT PERFORMED 03/23/2019Cardiac:Lab ResultsComponent Value Date TROPONINI <0.05 07/23/2020 PROBNP 399 07/23/2020CBC Brief:Lab ResultsComponent Value Date WBC 6.1 07/24/2020 HGB 12.6 07/24/2020 HCT 36.0 07/24/2020 PLT 225 07/24/2020D-Dimer:Lab ResultsComponent Value Date LACTATE 1.1 03/23/2019Hyperlipidemia:Lab ResultsComponent Value Date CHOL 114 07/23/2020 TRIG 94 07/23/2020 HDL 46 07/23/2020 CHOLHDL 2.5 07/23/2020 LDL 57 09/27/2017 LDLCALC 49 07/23/2020POC TROPONIN: No results found for: POCTROPTSH:No results found for: P0DDOLRLD: marked sinus bradycardia, RBBBAssessment and PlanPrincipal Problem: Chest painActive Problems: Pulmonary HTN COPD (chronic obstructive pulmonary disease) Neuropathy TODD (obstructive sleep apnea) Pulmonary hypertension Gastroesophageal reflux disease Cardiomegaly Bradycardia History of stent insertion of renal artery RBBB Supplemental oxygen dependent Seizure [id number] lady with sick sinus syndrome new right bundle branch blockconsistent with no conduction abnormality presented with exe rtional chestdiscomfort shortness of breath recurrent syncope, off all negative chronotropicmedications will need dual chamber pacemaker placement in the presence of normalLV function.History of coronary artery disease last catheterization 2017 no evidence ofischemia may consider outpatient stress test if needed.Continue home O2 as directed.May resume beta-blockers post pacer placement. Continue aspirin calcium channelblocker CHARLOTTE inhibitors and statins.Signature: Nicky Valencia MDDate: July 24, 2020Time: 8:40 AM Name Value Range Interpretation Code Description Data Ximena rce(s) Supporting Document(s) ID Date Data Source [id number] 07/24/2020 08:20:37 AM EDT [facility] Name Value Range Interpretation Code Description Data Ximena rce(s) Supporting Document(s) EKG [facility] [id number]Rp jb2 [file] [id number]+0v8d+GLAZE WIPER [file] [id number] ID Date Data Source [id number] 07/24/2020 07:47:42 AM EDT [address] [address]Zefpikb Name: FLORA MIJARESDOB: 2Sex: FOrdering Provider: SHERI Soni Prov: SHERI Owens Provider: Procedure Performed: XR CHEST PORTABLEExam Date: 07/23/2020 22:03MRN: [id number] Number: [id number] Class: OutpatientAccount #: [id number] for Exam: chest painTechnique: AP portable view obtained.Comparison: March 23, 2019Findings: Lungs are clear. Patient is status post median sternotomy. There are no pleural effusions. Mediastinal contours are unremarkable.IMPRESSION: No acute disease in the chest.Report electronically signed by: MARISA MCCLENDON On 07/24/2020 7:47 AMWorkstation ID: [id number] Name Value Range Interpretation Code Description Data Ximena rce(s) Supporting Document(s) ID Date Data Source [id number] 07/24/2020 06:05:39 AM EDT [facility] Name Value Range Interpretation Code Description Data Ximena rce(s) Supporting Document(s) SODIUM 136 mmol/L (136-145) [facility] POTASSIUM 4.0 mmol/L (3.6-5.2) [facility] CHLORIDE 100 mmol/L (100-108) [facility] CO2 27 mmol/L (22-31) [facility] ANION GAP 9 mmol/L (7-16) [facility] UREA NITROGEN 19 mg/dL (7-24) [facility] CREATININE 0.61 mg/dL (0.60-1.00) [facility] BUN/CREAT RATIO 31.1 RATIO (10.0-20.0) H [facility] GLUCOSE 86 mg/dL (70-99) [facility] CALCIUM 8.5 mg/dL (8.4-10.2) [facility] GFR >60 ml/min/1.73m2 (>59) [facility] GFR ( AMER) >60 ml/min/1.73m2 (>59) [facility] GFR INTERPRETATION [facility] --NORMAL KIDNEY FUNCTION OR MILD DISEASE - GFR >OR= 60CHRONIC KIDNEY DISEASE - GFR 15 - 59RENAL FAILURE - GFR <15 Est. GFR calculation based on the MDRDstudy equation, which assumes a steadystate for creatinine. Est. GFR should notbe used for medication dosing. ID Date Data Source [id number] 07/24/2020 05:31:30 AM EDT [facility] Name Value Range Interpretation Code Description Data Ximena rce(s) Supporting Document(s) WBC 6.1 10*3/uL (4.1-11.0) [facility] RBC 4.24 10*6/uL (4.00-5.40) [facility] HGB 12.6 g/dL (12.0-16.0) [facility] HCT 36.0 % (36.0-47.0) [facility] PERFORMED AT [address] [place] [address] [address] [place] [address] MCV 84.9 fL (80.0-95.0) [facility] MCH 29.8 pg (27.0-32.0) [facility] MCHC 35.1 g/dL (32.0-36.0) [facility] RDW 15.1 % (10.5-14.5) H [facility] PLT 225 10*3/uL (150-450) [facility] MPV 7.1 fL (7.1-10.7) [facility] ID Date Data Source [id number] 07/24/2020 01:36:13 AM EDT [facility]PAT[facility] NT INFORMATIONPatient MRN Name Date of Age Gend*PT [id number] Flora Mijares 1940 79 years F OBSPT Location Admission Date/Time Visit ID Attending [id number] 07/23/202045 --- Kai Dahl MD([id number]) EPI ID CSN Admitting Provider [id number] Pauline Hernandez MD([id number]) Attestation signed by Pauline Hernandez MD at 07/24/2020 1:36 AMPlan of care discussed. Agree with H&P by Sheri Gama NP.Signature: FAMILIA Osullivanate: July 24, 2020Time: 1:35 AM ADMISSION HISTORY AND PHYSICALName: Flora Mijares Gender: femaleDate of : 1940 Age: 79 yearsDate/Time of Admit: 07/23/2020 8:46 PM Code Status: Full CodePrimary Care Provider / Referring Physician: ALBERT ALVARES NPInformant:Current HistoryChief Complaint: Patient transfers from [facility] for evaluation of chestpain in the setting of known CAD and multiple PCI including CABG in 2001HPI:This patient is a 79 years female with medical history of CAD (s/p multiple PCIincluding: Last [facility] October 2017 which revealed patent ESPINOSA to LAD and patentstents in the right and left circumflex and LAD; she is status post CABGX5 mt1200). Echocardiogram May 2019 showed normal LV size with mild LVH andpreserved LV systolic function. Grade 1 diastolic dysfunction, mild pulmonaryhypertension, and severe left atrial enlargement. She also has a history ofhypertension, hyperlipidemia, COPD/TODD//nocturnal oxygen, GERD and duodenalulcer bleeding s/p transfusion, obesity. [facility]Patient reports that during the day she was in her kitchen making a meal andfeeling her usual self, when she had sudden onset chest pressure and tightness"like a vice around my chest" associated with dyspnea worse than usual,lightheadedness, and nausea. She went back into her room and took nitro SL X3,bb ASA x3, and applied her oxygen on with no relief. She then called her sonwho took her to the [facility].Work-up in [facility] was as follows:Chest x-ray: No focal cons olidationUltrasound abdominal complete impression: Multiple stones within the gallbladderlumen without gallbladder wall thickening as yet. Moderate fatty infiltrationof the liver.WBC 7.2, H&H 13.2 and 40.1, platelets 264, glucose 103, BUN and creatinine 21and 0.8, potassium 4.3, AST 29, ALT 34. Troponin <0.017.COVID-19 test negativePatient had past history of smoking cigarettes, quit in 2001, 80 P-Y smoking.She denies etoh use, illicit drug use, history of kidney disease. She hashistory of peptic ulcer bleeding and required blood transfusion in the past. Sheis complaint with her medications.Private Watchman: of Systems:Review of SystemsConstitution: Negative for chills, decreased appetite, diaphoresis, fever,malaise/fatigue, night sweats, weight gain and weight loss.HENT: Negative for congestion, ear discharge, ear pain, hearing loss, hoarsevoice, nosebleeds, odynophagia, sore throat, stridor and tinnitus.Eyes: Negative for blurred vision, discharge, double vision, pain, vickie tophobia,redness, vision loss in left eye, vision loss in right eye, visual disturbanceand visual halos.Cardiovascular: Positive for chest pain. Negative for claudication, cyanosis,dyspnea on exertion, irregular heartbeat, leg swelling, near-syncope, orthopnea,palpitations, paroxysmal nocturnal dyspnea and syncope.Respiratory: Positive for shortness of breath. Negative for cough, hemoptysis,sleep disturbances due to breathing, snoring, sputum production and wheezing.Endocrine: Negative.Hematologic/Lymphatic: Negative.Skin: Negative.Musculoskeletal: Neuropathy and arthritisGastrointestinal: Positive for nausea. Negative for bloating, abdominal pain,anorexia, change in bowel habit, bowel incontinence, constipation, diarrhea,dysphagia, excessive appetite, flatus, heartburn, hematemesis, hematochezia,hemorrhoids, jaundice, melena and vomiting.Genitourinary: Negative for bladder incontinence, dysuria, flank pain,frequency, genital sores, hematuria, hesitancy, incomplete emptying, nocturia,pelvic pain and urgency.Neurological: Positive for light-headedness (during episode of chest tightness).Negative for aphonia, brief paralysis, difficulty with concentration,disturbances in coordination, excessive daytime sleepiness, dizziness, focalweakness, headaches, loss of balance, numbness, paresthesias, seizures, sensorychange, tremors, vertigo and weakness.Psychiatric/Behavioral: Negative.Allergic/Immunologic: Negative.Past HistoryPast Medical History:Diagnosis Date Cardiac catheterization 10/2014 LV EF 55%, inferior hypokinesis.PAP 46/19. PCWP 14. 30% LM. Patent stents inpLCx and mLCx. Patent stents in pLAD and mLAD. Patent ESPINOSA to dLAD. Patent stentdRCA. Cardiac catheterization 11/14/2017 Patent ESPINOSA to LAD, patent stents in RCA, LCX and LAD. Non-significant InStentrestenosis in diagonal artery. Cardiac PET 07/2016 Small fixed inferolateral defect. No ischemia. LV EF 70%. Cardiomegaly COPD (chronic obstructive pulmonary disease) Coronary angioplasty status 07/13/2016 Coronary artery disease Echocardiogram 11/28/2019 Normal LV size. Mild LVH. LVEF 55-65%. Grade 1 diastolic dysfunction. Minimalmitral stenosis (mean gradient 3.1 mmHg). Normal CVP and likely mild pulmonaryHTN. Severe left atrial enlargement. 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 Perfusion study shows infarction. Cannotrule out that small fixed defect in inferior basal is d/t attenuation. LEVF 58%.Suggestive of RV enlargement and septal wall motion abnormality. These suggestpresence of pulmonary HTN. PUD (peptic ulcer disease) 2009 Bleeding duodenal ulcer Pulmonary hypertension Secondary pulmonary hypertension 07/13/2016 Spirometry 09/2017 96% FVC, 77% QHD3Cadl Surgical History:Procedure Laterality Date APPENDECTOMY APPENDECTOMY N/A 03/23/2019 Procedure: APPENDECTOMY LAPAROSCOPY; Surgeon: Ilan Glasgow MD; Laterality:N/A; 1638 03/23/19 CARDIAC CATHETERIZATION N/A 11/14/2017 Procedure: Cardiac catheterization; Surgeon: Nneka Lewis MD; Laterality:N/A; CARDIAC CATHETERIZATION N/A 11/14/2017 Procedure: Angioplasty-coronary; Surgeon: Nneka Lewis MD; Laterality:N/A; CARDIAC SURGERY COLONOSCOPY CORONARY ANGIOPLASTY WITH STENT PLACEMENT CORONARY ARTERY BYPASS GRAFT 2001 EYE SURGERY HERNIA REPAIR renal stents right elbow surgery TUBAL LIGATIONFamily HistoryProblem Relation Age of Onset COPD Mother Cancer FatherSocial HistorySocial History Narrative Has been sedentary d/t COVID-19Social HistorySocioeconomic History Marital status: Spouse name: Not on file Number of children: Not on file Years of education: Not on file Highest education level: Not on fileOccupational History Occupation: Retired Comment: [place] in [place] 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 resource strain: Not hard at all Food insecurity: Worry: Never true Inability: Never true Transportation needs: Medical: No Non-medical: NoTobacco Use Smoking status: Former Smoker Packs/day: 2.00 Years: 40.00 Pack years: 80.00 Types: Cigarettes Last attempt to quit: 2002 Years since quittin.8 Smokeless tobacco: Never UsedSubstance and Sexual Activity Alcohol use: No Drug use: No Sexual activity: Not on fileLifestyle Physical activity: Days per week: Not on file Minutes per session: Not on file Stress: Not on fileRelationships Social connections: Talks on phone: Not on file Gets together: Not on file Attends mormonism service: Not on file Active member of club or organization: Not on file Attends meetings of clubs or organizations: Not on file Relationship status: Not on file Intimate partner violence: Fear of current or ex partner: Not on file Emotionally abused: Not on file Physically abused: Not on file Forced sexual activity: Not on fileOther Topics Concern Bike Helmet Not Asked History of Falls Not Asked Self-Exams Not Asked Caffeine Concern Not Asked Hobby Hazards Not Asked Sleep Concern Not Asked Daily Calcium Supplement Not Asked Lead Exposure Not Asked Special Diet Not Asked Daily Vitamin D Supplement Not Asked Service Not Asked Stress Concern Not Asked Domestic Violence in home Not Asked Radon exposure Not Asked Weight Concern Not Asked Exercise Not Asked Seat Belt Not Asked Well water Not Asked Firearms in home Not AskedSocial History Narrative Has been sedentary d/t COVID-19Medications and AllergiesALLERGIES/SENSITIVITIES: No Known Drug AllergiesScheduled Meds: [START ON 07/24/2020] amLODIPine 10 mg Oral Daily [START ON 07/24/2020] aspirin EC 81 mg Oral Daily [START ON 07/24/2020] chlorthalidone 25 mg Oral Daily [START ON 07/24/2020] citalopram 20 mg Oral Daily [START ON 07/24/2020] clopidogrel 75 mg Oral Daily famotidine 20 mg Oral BID [START ON 07/24/2020] heparin (porcine) 5,000 Units Subcutaneous Q12H ALEK [START ON 07/24/2020] ipratropium 0.5 mg Nebulization QID [START ON 07/24/2020] lisinopril 20 mg Oral Daily [START ON 07/24/2020] mometasone-formoterol 2 puff Inhalation Daily normal saline flush 3 mL Intravenous Q8H ALEK normal saline flush 3 mL Intravenous Q8H ALEK oxybutynin 5 mg Oral BID pregabalin 150 mg Oral BIDContinuous Infusions:PRN Meds:.acetaminophen, atropine sulfate, nitroglycerin, ondansetron, zolpidemPhysicalBlood Pressure: BP: 144/66 Pulse: Heart Rate: (!) 44Temperature: Temp: 97.5 F Respirations: Resp: 18Admission Weight: Weight: 78.7 kg (173 lb 9.6 oz) O2 Saturation: SpO2: 94 %Today's Weight: Weight: 78.7 kg (173 lb 9.6 oz)Physical ExamPhysical ExamConstitutional: She is oriented to person, place, and time. She appearswell-developed and well-nourished. No distress.HENT:Head: Normocephalic and atraumatic.Right Ear: External ear normal.Left Ear: External ear normal.Nose: Nose normal.Mouth/Throat: Oropharynx is clear and moist. No oropharyngeal exudate.Eyes: Pupils are equal, round, and reactive to light. Conjunctivae and EOM arenormal. Right eye exhibits no discharge. Left eye exhibits no discharge. Noscleral icterus.Neck: Normal range of motion. Neck supple. No JVD present. No tracheal deviationpresent. No thyromegaly pr esent.Cardiovascular: Normal rate, regular rhythm, normal heart sounds and intactdistal pulses. Exam reveals no gallop and no friction rub.No murmur heard.Pulmonary/Chest: Effort normal and breath sounds normal. No stridor. Norespiratory distress. She has no wheezes. She has no rales. She exhibits notenderness.Abdominal: Soft. Bowel sounds are normal. She exhibits no distension and nomass. There is no tenderness. There is no rebound and no guarding.Musculoskeletal: Normal range of motion. She exhibits no edema, tenderness ordeformity.Lymphadenopathy: She has no cervical adenopathy.Neurological: She is alert and oriented to person, place, and time. She hasnormal reflexes. No cranial nerve deficit. Coordination normal.Skin: Skin is warm and dry. No rash noted. She is not diaphoretic. No erythema.No pallor.Psychiatric: She has a normal mood and affect. Her behavior is normal.DiagnosticsCBC with Diff:Lab ResultsComponent Value Date WBC 7.3 07/23/2020 RBC 4.56 07/23/2020 HGB 13.3 07/23/2020 HCT 39.5 07/23/2020 MCV 86.6 07/23/2020 MCH 29.3 07/23/2020 MCHC 33.8 07/23/2020 RDW 15.3 (H) 07/23/2020 PLT 251 07/23/2020 MPV 6.9 (L) 07/23/2020 LYMPHOPCT 19.2 07/23/2020 MONOPCT 10.9 (H) 07/23/2020 EOSPCT 1.2 07/23/2020 BASOPCT 0.8 07/23/2020 NEUTROABS 4.9 07/23/2020 MONOABS 0.8 07/23/2020 BASOSABS 0.1 07/23/2020CMP:Lab ResultsComponent Value Date NA 135 (L) 07/23/2020 K 3.9 07/23/2020 CL 99 (L) 07/23/2020 CO2 27 07/23/2020 ANIONGAP 9 07/23/2020 BUN 20 07/23/2020 CREATININE 0.65 07/23/2020 BCR 30.8 (H) 07/23/2020 GLU 81 07/23/2020 CALCIUM 9.0 07/23/2020 ALBUMIN 3.9 07/23/2020 GLOB 3.1 07/23/2020 AGRC 1.3 07/23/2020 ALKPHOS 70 07/23/2020 LABBILI 0.5 07/23/2020 AST 23 07/23/2020 ALT 31 07/23/2020 GFRAA >60 07/23/2020 GFRNONAA >60 07/23/2020Assessment & PlanThis is a pleasant 79 year old female patient with medical history aboveincluding CABG X5 in 2001 and subsequent [facility]. [facility].Chest painPresently offers no anginal complaint sEKG on admission is noted to marked sinus bradycardia with RBBB which appears gagan new as compared to prior EKG from 2018, ?possibly a wondering atrialpacemakerShe offers no anginal complaintsTroponin was negative in [place] and repeat here is negativeHer last pharmacologic SPECT was April 2019 revealed infarction but noischemia, preserved LVEF and findings suggestive of pulmonary hypertensionAdmit to telemetryContinue her home medications including ASA, Plavix, nitro prn for CP, nostatin/she is intolerant and take RepathaShe tells me she takes Tenormin and metoprolol ?Given bradycardia and HR occasionally in the 30s, will hold BB and monitorclosely for need to restartKeep NPO and ask for cardiology consultation in amBradycardiaEKG from 2018 is noted to be bradycardia but no RBBBShe insists that she take tenormin and metoprolol. Will ask pharmacy toreconcile medication list and adjust medications as neededFor now hole BB and monitorRBBBNot seen on prior EKGCOPD (chronic obstructive pulmonary dis ease)StableDuoNebsLETWean to 92%ICSSeizure activityHas had 2 seizures, 1st seizure in OctoberFollowed by neurologistContinue Levitiracetam 500 mg b.i.dSeizure precautionsHypertensionContinue home regimen including amlodipine, lisinopril, chlorthalidoneHold BB given bradycardiaSupplemental oxygen dependent/ TODD (obstructive sleep apnea)/pulmonaryhypertensionNeed 2 LNC at HOSIntolerant of CPAPNeuropathyLyrica 150 mg b.i.dGastroesophageal reflux disease/peptic ulcer bleeding historyContinue PPI per home doseHistory of stent insertion of renal arteryHyperlipidemiaNo statin/intolerant on RepathaCoronary artery diseases/p multiple PCI including: Last [facility] October 2017 which revealed patent ESPINOSA toLAD and patent stents in the right and left circumflex and LAD; she is statuspost CABGX5 in 2001DVT pxKnee high stockingHeparin subcutaneouslyCODE STATUS: PATIENT WOULD LIKE INTUBATION AND RESUSCITATION MEDICATION BUT NOCOMPRESSIONAdvance Directives DiscussionI had a face to face discussion today with Patient regarding advance directives.We discussed the patient's code status wishes and the differences between whatit means to be full code, DNR, or DNR/DNI. (A DNR patient can still beelectively intubated in a non- cardiac arrest situation. A DNR/DNI will not beintubated in any circumstance.)Questions which were addressed included: Advance DirectivesAt this time their wishes are for the patient to be made NO COMPRESSION AND MAYINTUBATE AND GIVE EMERGENCY MEDICATIONS TO RESTART THE HEART. PATIENT DOES NOTWISH TO HAVE CHEST COMPRESSIONS. This has been entered into the chart.Other topics discussed today included Patient's values and goals of careDetails of this discussion were as follows: Advance DirectivesForms completed today includenoneI spent < or = 15 minutes during the above discussion which was additional timespent separate from the hospital visit.D/W ature: Sheri Gama NPDate: July 23, 2020Time: 11:20 PM Name Value Range Interpretation Code Description Data Ximena rce(s) Supporting Document(s) ID Date Data Source [id number] 07/24/2020 12:34:00 AM EDT [facility] l Patient: FLORA MIJARES Observation [facility] Physicians/Mid Levels [place].VisitID: [id number] [place] [address] [phone], FRegistration Date/Time: 07/23/2020 15:41 Weight:74.8 kg (S). Height/Length:61 inches (S). BMI:31.2 FAMILY HISTORYFather: Cancer, Hypertension. Mother: Diabetes Mellitus. (Electronically signed by Ivory Lozada P.A. 07/23/2020 19:20) Name Value Range Interpretation Code Description Data Ximena rce(s) Supporting Document(s) ID Date Data Source [id number] 07/24/2020 12:59:25 AM EDT [facility] Name Value Range Interpretation Code Description Data Ximena rce(s) Supporting Document(s) TROPONIN I <0.05 ng/mL (<0.05) [facility] [place] Less than 0.05: Myocardial injury unlike lyGreater than or equal to 0.05: Highly suggestive of myocardial injuryCorrelation with rise and/or fall ofserial troponins, clinical symptomsand ECG changes is necessary. ID Date Data Source [id number] 07/23/2020 10:13:07 PM EDT [facility] Name Value Range Interpretation Code Description Data Ximena rce(s) Supporting Document(s) HEMOGLOBIN A1C @ 5.9 % (4.0-6.0) Lab Lisa Performed using Siemens [place] immunoassa y.Care must be taken when interpreting [id number] in patients with a hemoglobin variantor decreased erythrocyte lifespan. Values 5.7 - 6.4% suggest prediabetes.Values >=6.5% are diagnostic for diabetes.REFERENCE: DIABETES CARE 2018: 41(S13-S27).PERFORMED AT [address] [place] [id number] EST AVERAGE GLUCOSE 123 mg/dL Lab Annalisa Gonsalves ID Date Data Source [id number] 07/23/2020 11:27:32 PM EDT [facility] Name Value Range Interpretation Code Description Data Ximena rce(s) Supporting Document(s) CHOLESTEROL @ 114 mg/dL (0-200) [facility] TRIGLYCERIDE @ 94 mg/dL (30-200) [facility] of [facility] HDL CHOLESTEROL @ 46 mg/dL (>40) [facility] of [facility] PER NCEP ATP III GUIDELINES:RESULTS LOWE R THAN 40 MG/DL ARE SUGGESTIVEOF INCREASED RISK FOR CORONARY ARTERYDISEASE. RESULTS > OR = TO 60 MG/DL ARECONSIDERED A NEGATIVE RISK FACTOR. CHOL/HDL RATIO 2.5 RATIO Lab [facility] INTERPRETATION OF CHOL-HDL RATIO CHD RISK FEMALE MALEVERY HIGH >8.3 >14.3HIGH 5.6- 8.3 6.7- 14.3AVERAGE 3.7- 5.6 4.0- 6.7BELOW AVERAGE 2.5- 3.7 2.7- 4.0PROTECTED <2.5 <2.7 LDL CHOL (CALC) 49 mg/dL (<130) [facility] PER NCEP ATP III GUIDELINES: OPTIMAL < 100 NEAR OPTIMAL 100 - 129BORDERLINE HIGH 130 - 159 HIGH 160 - 189 VERY HIGH > 189 ID Date Data Source [id number] 07/23/2020 10:41:28 PM EDT Lab [facility] SPEC EXP DATE 07/26/2020PATI ENT ABO/Rh O NEGATIVEANTIBODY SCREEN NEGATIVETESTING SITE PERFORMED AT [address] [place] [address] Name Value Range Interpretation Code Description Data Ximena rce(s) Supporting Document(s) TYPE AND SCREEN [facility] [place] PATIENT ABO/Rh O NEGATIVE ID Date Data Source [id number] 07/23/2020 10:08:32 PM EDT Lab [facility] Name Value Range Interpretation Code Description Data Ximena rce(s) Supporting Document(s) TSH,ULTRASENSITIVE @ 1.605 mIU/L (0.360-4.170) [facility] PERFORMED AT [address] [place] [address] [place] [address] ID Date Data Source [id number] 07/23/2020 10:08:32 PM EDT Lab [facility] Name Value Range Interpretation Code Description Data Ximena rce(s) Supporting Document(s) NT PRO BNP 399 pg/mL (0-450) [facility] ID Date Data Source [id number] 07/23/2020 10:08:32 PM EDT [facility] Name Value Range Interpretation Code Description Data Ximena rce(s) Supporting Document(s) TROPONIN I <0.05 ng/mL (<0.05) [facility] [place] Less than 0.05: Myocardial injury unlike lyGreater than or equal to 0.05: Highly suggestive of myocardial injuryCorrelation with rise and/or fall ofserial troponins, clinical symptomsand ECG changes is necessary. ID Date Data Source [id number] 07/23/2020 10:08:32 PM EDT [facility] Name Value Range Interpretation Code Description Data Ximena rce(s) Supporting Document(s) SODIUM 135 mmol/L (136-145) L [facility] POTASSIUM 3.9 mmol/L (3.6-5.2) [facility] CHLORIDE 99 mmol/L (100-108) L [facility] CO2 27 mmol/L (22-31) [facility] ANION GAP 9 mmol/L (7-16) [facility] UREA NITROGEN 20 mg/dL (7-24) [facility] CREATININE 0.65 mg/dL (0.60-1.00) [facility] BUN/CREAT RATIO 30.8 RATIO (10.0-20.0) H [facility] GLUCOSE 81 mg/dL (70-99) [facility] CALCIUM 9.0 mg/dL (8.4-10.2) [facility] TOTAL PROTEIN 7.0 g/dL (6.4-8.2) [facility] ALBUMIN 3.9 g/dL (3.2-4.5) [facility] GLOBULIN 3.1 g/dL (2.7-4.3) [facility] ALB/GLOB RATIO 1.3 RATIO [facility] ALKALINE PHOSPHATASE 70 U/L (45-117) [facility] [place] BILIRUBIN,TOTAL 0.5 mg/dL (0.0-1.0) [facility] PLEASE NOTE:Total bilirubin results may be falselyelevated in patients taking Eltrombopag. AST (SGOT) 23 U/L (11-39) [facility] ALT (SGPT) 31 U/L (12-78) [facility] GFR >60 ml/min/1.73m2 (>59) [facility] GFR ( AMER) >60 ml/min/1.73m2 (>59) [facility] GFR INTERPRETATION Lab [facility] [place] --NORMAL KIDNEY FUNCTION OR MILD DISEASE - GFR >OR= 60CHRONIC KIDNEY DISEASE - GFR 15 - 59RENAL FAILURE - GFR <15 Est. GFR calculation based on the MDRDstudy equation, which assumes a steadystate for creatinine. Est. GFR should notbe used for medication dosing. ID Date Data Source [id number] 07/23/2020 09:57:53 PM EDT [facility] [place] Name Value Range Interpretation Code Description Data Ximena rce(s) Supporting Document(s) MAGNESIUM 2.1 mg/dL (1.7-2.4) [facility] [place] ID Date Data Source [id number] 07/23/2020 09:45:21 PM EDT [facility] [place] Name Value Range Interpretation Code Description Data Ximena rce(s) Supporting Document(s) APTT 24.6 s (22.0-34.3) [facility] [place] ID Date Data Source [id number] 07/23/2020 09:45:21 PM EDT [facility] [place] Name Value Range Interpretation Code Description Data Ximena rce(s) Supporting Document(s) PT 10.5 s (9.2-11.9) [facility] [place] INR 1.00 [facility] [place] SUGGESTED THERAPEUTIC RANGES USING INR F ORSTABILIZED ANTICOAGULATED PATIENTS:STANDARD DOSE THERAPY INR 2.0-3.0 DVT, PE, PREVENT DVT OR EMBOLISMHIGH DOSE THERAPY INR 2.5-3.5 PREVENT EMBOLISM FROM MECHANICAL HEART VALVE ID Date Data Source [id number] 07/23/2020 09:33:10 PM EDT [facility] Name Value Range Interpretation Code Description Data Ximena rce(s) Supporting Document(s) WBC 7.3 10*3/uL (4.1-11.0) [facility] [place] RBC 4.56 10*6/uL (4.00-5.40) [facility] HGB 13.3 g/dL (12.0-16.0) [facility] [place] HCT 39.5 % (36.0-47.0) [facility] [place] PERFORMED AT [address] [place] [address] [place] [address] MCV 86.6 fL (80.0-95.0) [facility] [place] MCH 29.3 pg (27.0-32.0) [facility] [place] MCHC 33.8 g/dL (32.0-36.0) [facility] [place] RDW 15.3 % (10.5-14.5) H [facility] [place] PLT 251 10*3/uL (150-450) [facility] [place] MPV 6.9 fL (7.1-10.7) L [facility] NEUT % 67.9 % (35.0-75.0) [facility] [place] LYMPH % 19.2 % (16.0-52.0) [facility] [place] MONO % 10.9 % (0.0-8.0) H [facility] EOS % 1.2 % (0.0-5.0) [facility] BASO % 0.8 % (0.0-4.0) [facility] NEUT # 4.9 10*3/uL (1.8-7.7) [facility] [place] LYMPH # 1.4 10*3/uL (1.2-4.8) [facility] [place] MONO # 0.8 10*3/uL (0.0-0.8) [facility] [place] Eosinophils [#/volume] in Blood by Automated count 0.1 10*3/uL (0.0-0 .5) [facility] BASO # 0.1 10*3/uL (0.0-0.2) [facility] [place] ID Date Data Source [id number] 07/23/2020 05:01:00 PM EDT [facility] DATE OF EXAMINATION: 07/23/2020 16:20 ED T CHEST 2 VIEWS HISTORY: Chest pain TECHNIQUE: PA and lateral radiographs of the chest COMPARISON: 03/23/2019 FINDINGS: No evidence of focal consolidation, pneumothorax or large pleural effusion.Lungs are clear. Mediastinal structures are unremarkable. No aggressive osseouslesions. Multiple midline sternotomy sutures as well as coronary arterial stentsand mediastinal erick are noted. IMPRESSION: No focal consolidation. Electronically signed in [id number] by: Ant Perez M.D. 07/23/2020 16:55 EDT Name Value Range Interpretation Code Description Data Ximena rce(s) Supporting Document(s) ID Date Data Source [id number] 07/23/2020 05:00:00 PM EDT [facility] Name Value Range Interpretation Code Description Data Ximena rce(s) Supporting Document(s) COVID-19 [facility] reported by [facility]. ID Date Data Source [id number] 07/23/2020 05:45:00 PM [facility]T [facility] [id number] Name Value Range Interpretation Code Description Data Ximena rce(s) Supporting Document(s) COVID-19 NEGATIVE NEGATIVE [facility] Negative results should be treated as pr esumptive and, ifinconsistent with clinical signs and symptoms or necessaryfor patient management, should be tested with differentauthorized or cleared molecular tests.Negative results do not preclude SARS-CoV-2 infection andshould not be used as the sole basis for patient managementdecisions.This is a rapid molecular in vitro diagnostic test utilizingan isothermal nucleic acid amplification technology intendedfor the qualitative detection of nucleic acid from the SARS-CoV-2 viral RNA in direct nasal, nasopharyngeal orthroat swabs from individuals who are suspected of COVID-19.Results are for the indentification of SARS-CoV-2 RNA. KemSYVV-HbQ-3 RNA is generally detectable in respiratorysamples during the actue phase of infection. ID Date Data Source [id number] 07/23/2020 04:40:00 PM EDT [facility] [id number] Name Value Range Interpretation Code Description Data Ximena rce(s) Supporting Document(s) TROPONIN I < 0.017 ng/mL 0.0-0.056 [facility] ID Date Data Source [id number] 07/23/2020 04:40:00 PM EDT [facility] TSYSORDER [id number] Name Value Range Interpretation Code Description Data Ximena rce(s) Supporting Document(s) LIPASE 82 U/L [id number] [facility] ID Date Data Source [id number] 07/23/2020 04:40:00 PM EDT [facility] [id number] Name Value Range Interpretation Code Description Data Ximena rce(s) Supporting Document(s) GLUCOSE 103 mg/dL 74-106 [facility] BLOOD UREA NITROGEN 21 mg/dL 7-18 H [facility] ital CREATININE 0.8 mg/dL 0.6-1.0 [facility] SODIUM 133 mmol/L 136-145 L [facility] POTASSIUM 4.3 mmol/L 3.5-5.1 [facility] CHLORIDE 96 mmol/L 98-107 L [facility] CO2 29 mmol/L 21-32 [facility] CALCIUM 9.1 mg/dL 8.5-10.1 [facility] ANION GAP 8.0 mmol/L 5-12 [facility] GLOMERULAR FILTRATION RATE 70 mL/min [facility] GFR IS CALCULATED IN mL/min/1.73m2 AGNIESZKA L FUNCTION: >90MILDLY DECREASED: 60-89MILDY TO MODERATELY DECREASED: 45-59 MODERATELY TO SEVERELY DECREASED: 30-44SEVERELY DECREASED: 15-29RENAL FAILURE: <15 AST 29 U/L 15-37 [facility] ALT 34 U/L 12-78 [facility] ALKALINE PHOSPHATASE 77 U/L 46-116 [facility] pital TOTAL BILIRUBIN 0.4 mg/dL 0.2-1.0 [facility] TOTAL PROTEIN 7.6 g/dl 6.4-8.2 [facility] ALBUMIN 4.0 gm/dL 3.4-5.0 [facility] ID Date Data Source [id number] 07/23/2020 04:34:00 PM EDT [facility] [id number] Name Value Range Interpretation Code Description Data Ximena rce(s) Supporting Document(s) PARTIAL THROMBOPLASTIN TIME 24.2 SECONDS 21.2-27.3 [facility] ID Date Data Source [id number] 07/23/2020 04:34:00 PM EDT [facility] [id number] Name Value Range Interpretation Code Description Data Ximena rce(s) Supporting Document(s) PROTHROMBIN TIME (PATIENT) 9.8 SECONDS 9.1-11.6 [facility] INR 0.94 0.87-1.06 [facility] ID Date Data Source [id number] 07/23/2020 04:25:00 PM EDT [facility] TSYSORDER [id number] Name Value Range Interpretation Code Description Data Ximena rce(s) Supporting Document(s) WHITE BLOOD COUNT 7.2 K/mm3 4.0-10.0 [facility] RED BLOOD COUNT 4.64 M/mm3 4.00-5.50 [facility] HEMOGLOBIN 13.2 gm/dL 12.0-16.0 [facility] HEMATOCRIT 40.1 % 36.0-48.8 [facility] MEAN CELL VOLUME 86.4 fl 80-96 [facility] MEAN CORPUSCULAR HEMOGLOBIN 28.4 pg 27.0-31.0 [facility] MEAN CORPUSCULAR HGB CONC 32.9 g/dl 32.0-36.0 [facility] RED CELL DISTRIBUTION WIDTH 14.8 % 10.0-14.5 H [facility] PLATELET COUNT 264 K/mm3 172-450 [facility] MEAN PLATELET VOLUME 9.4 fl 9.0-13.0 [facility] pital GRAN % 68.1 % 50-80.0 [facility] IG% 0.6 % 0.0-0.2 H [facility] LYMPH % 19.3 % 25.0-50.0 L [facility] MONO % 10.6 % 2.0-10.0 H [facility] EOS % 1.1 % 0-5.0 [facility] BASO % 0.3 % 0.0-2.0 [facility] GRAN # 4.9 K/mm3 2.0-8.00 [facility] IG# 0.0 K/mm3 0.0-0.2 [facility] LYMPH # 1.4 K/mm3 1.0-5.0 [facility] MONO # 0.8 K/mm3 0.10-1.20 [facility] EOS # 0.1 K/mm3 0.0-0.5 [facility] BASO # 0.0 K/mm3 0.0-0.2 [facility] ID Date Data Source [id number] 05/21/2020 02:15:00 PM EDT [facility] DATE OF EXAMINATION: 05/21/2020 13:11 EDT IMPRESSION: For a detailed report please refer to the software generated ZenDoc. Electronically signed in [id number] by: Ant Perez M.D. 05/21/2020 14:09 EDT Name Value Range Interpretation Code Description Data Ximena rce(s) Supporting Document(s) Procedure Social History Code Duration Value Status Description Data Source(s ) Smoking 05/25/2021 12:00:00 AM EDT Former Smoker completed Former Smoker [email or web address] ([facility]) Smoking 05/25/2021 12:00:00 AM EDT Former Smoker completed Former Smoker eCW1 ([facility]) Smoking 05/25/2021 12:00:00 AM EDT Former Smoker completed Former Smoker eCW1 ([facility]) Smoking 05/25/2021 12:00:00 AM EDT Former Smoker completed Former Smoker eCW1 ([facility]) Smoking 05/25/2021 12:00:00 AM EDT Former Smoker completed Former Smoker eCW1 ([facility]) Smoking 05/25/2021 12:00:00 AM EDT Former Smoker completed Former Smoker eCW1 ([facility]) Smoking 05/11/2021 12:00:00 AM EDT Former Smoker completed Former Smoker eCW1 ([facility]) Smoking 05/11/2021 12:00:00 AM EDT Former Smoker completed Former Smoker eCW1 ([facility]) Smoking 05/11/2021 12:00:00 AM EDT Former Smoker completed Former Smoker eCW1 ([facility]) Smoking 05/10/2021 12:00:00 AM EDT Former Smoker completed Former Smoker eCW1 ([facility]) Smoking 04/08/2021 12:00:00 AM EDT Former Smoker completed Former Smoker eCW1 ([facility]) Smoking 04/08/2021 12:00:00 AM EDT Former Smoker completed Former Smoker eCW1 ([facility]) Smoking 04/08/2021 12:00:00 AM EDT Former Smoker completed Former Smoker eCW1 ([facility]) Smoking 04/08/2021 12:00:00 AM EDT Former Smoker completed Former Smoker eCW1 ([facility]) Smoking 04/08/2021 12:00:00 AM EDT Former Smoker completed Former Smoker eCW1 ([facility]) Smoking 04/08/2021 12:00:00 AM EDT Former Smoker completed Former Smoker eCW1 ([facility]) Alcohol intake 04/01/2021 12:00:00 AM EDT Current non-d maxx of alcohol (finding) completed Current non-drinker of alcohol (finding) [facility] Smoking 03/25/2021 12:00:00 AM EDT Former Smoker completed Former Smoker eCW1 ([facility]) Smoking 03/25/2021 12:00:00 AM EDT Former Smoker completed Former Smoker eCW1 ([facility]) Smoking 03/25/2021 12:00:00 AM EDT Former Smoker completed Former Smoker eCW1 ([facility]) Smoking 02/26/2021 12:00:00 AM EDT Former Smoker completed Former Smoker eCW1 ([facility]) Smoking 02/26/2021 12:00:00 AM EDT Former Smoker completed Former Smoker eCW1 ([facility]) Smoking 02/26/2021 12:00:00 AM EDT Former Smoker completed Former Smoker eCW1 ([facility]) Smoking 02/26/2021 12:00:00 AM EDT Former Smoker completed Former Smoker eCW1 ([facility]) Smoking 02/16/2021 12:00:00 AM EDT Former Smoker completed Former Smoker eCW1 ([facility]) Smoking 02/16/2021 12:00:00 AM EDT Former Smoker completed Former Smoker eCW1 ([facility]) Smoking 01/07/2021 12:00:00 AM EDT Former Smoker completed Former Smoker eCW1 ([facility]) Smoking 01/07/2021 12:00:00 AM EDT Former Smoker completed Former Smoker eCW1 ([facility]) Smoking 01/07/2021 12:00:00 AM EDT Former Smoker completed Former Smoker eCW1 ([facility]) Smoking 01/07/2021 12:00:00 AM EDT Former Smoker completed Former Smoker eCW1 ([facility]) Smoking 01/07/2021 12:00:00 AM EDT Former Smoker completed Former Smoker eCW1 ([facility]) Smoking 12/30/2020 12:00:00 AM EDT Former Smoker completed Former Smoker eCW1 ([facility]) Smoking 09/29/2020 12:00:00 AM EST Former Smoker completed Former Smoker eCW1 ([facility]) Smoking 09/29/2020 12:00:00 AM EST Former Smoker completed Former Smoker eCW1 ([facility]) Smoking 09/29/2020 12:00:00 AM EST Former Smoker completed Former Smoker eCW1 ([facility]) Smoking 09/29/2020 12:00:00 AM EST Former Smoker completed Former Smoker eCW1 ([facility]) Smoking 09/29/2020 12:00:00 AM EST Former Smoker completed Former Smoker eCW1 ([facility]) Smoking 09/29/2020 12:00:00 AM EST Former Smoker completed Former Smoker eCW1 ([facility]) Smoking 09/29/2020 12:00:00 AM EST Former Smoker completed Former Smoker eCW1 ([facility]) Smoking 09/29/2020 12:00:00 AM EST Former Smoker completed Former Smoker eCW1 ([facility]) Smoking 09/29/2020 12:00:00 AM EST Former Smoker completed Former Smoker eCW1 ([facility]) Smoking 07/30/2020 12:00:00 AM EST Former Smoker completed Former Smoker eCW1 ([facility]) Smoking 07/30/2020 12:00:00 AM EST Former Smoker completed Former Smoker eCW1 ([facility]) Smoking 07/30/2020 12:00:00 AM EST Former Smoker completed Former Smoker eCW1 ([facility]) Smoking 07/30/2020 12:00:00 AM EST Former Smoker completed Former Smoker eCW1 ([facility]) Smoking 07/30/2020 12:00:00 AM EST Former Smoker completed Former Smoker eCW1 ([facility]) Smoking 07/30/2020 12:00:00 AM EST Former Smoker completed Former Smoker eCW1 ([facility]) Smoking 07/30/2020 12:00:00 AM EST Former Smoker completed Former Smoker eCW1 ([facility]) Alcohol intake 07/28/2020 12:00:00 AM EST No completed [facility] Cigarette pack-years 07/28/2020 12:00:00 AM EST UNK completed [facility] Cigarettes smoked current (pack per day) - Reported 07/28/20 20 12:00:00 AM EST UNK completed [facility] Smoking 07/28/2020 12:00:00 AM EST Former smoker completed Former smoker [facility] Vital Signs ID Date Data Source UNK Name Value Range Interpretation Code Description Data Source(s) Body weight 148 [lb_av] 148 [lb_av] eCW1 ([facility]) Body height 61 [in_i] 61 [in_i] eCW1 ([facility]) Body mass index (BMI) [Ratio] 27.96 kg/m2 27.96 kg/m2 W1 ([facility]) Heart rate 66 /min 66 /min eCW1 ([facility]) Respiratory rate 18 /min 18 /min eCW1 ([facility]) Body temperature 98 [degF] 98 [degF] eCW1 ([facility]) Systolic blood pressure 156 mm[Hg] 156 mm[Hg] e CW1 ([facility]) Diastolic blood pressure 80 mm[Hg] 80 mm[Hg] eCW1 ([facility]) Body weight 144.12 [lb_av] 144.12 [lb_av] eCW1 ([facility]) Body height 61 [in_i] 61 [in_i] eCW1 ([facility]) Body mass index (BMI) [Ratio] 27.23 kg/m2 27.23 kg/m2 W1 ([facility]) Heart rate 70 /min 70 /min eCW1 ([facility]) Respiratory rate 18 /min 18 /min eCW1 ([facility]) Body temperature 98 [degF] 98 [degF] eCW1 ([facility]) Systolic blood pressure 103 mm[Hg] 103 mm[Hg] e CW1 ([facility]) Diastolic blood pressure 68 mm[Hg] 68 mm[Hg] eCW1 ([facility]) Body weight 65.77 kg 65.77 kg eCW1 ([facility]) Body weight 145 [lb_av] 145 [lb_av] eCW1 ([facility]) Body height 61 [in_i] 61 [in_i] eCW1 ([facility]) Body mass index (BMI) [Ratio] 27.39 kg/m2 27.39 kg/m2 eCW1 ([facility]) Heart rate 60 /min 60 /min eCW1 ([facility]) Respiratory rate 18 /min 18 /min eCW1 ([facility]) Body temperature 97.3 [degF] 97.3 [degF] eCW1 ( [facility]) Systolic blood pressure 123 mm[Hg] 123 mm[Hg] e CW1 ([facility]) Diastolic blood pressure 58 mm[Hg] 58 mm[Hg] eCW1 ([facility]) Diastolic blood pressure 80 mm[Hg] 80 mm[Hg] MEDENT ([facility] ) Heart rate 72 /min 72 /min MEDENT ([facility] ) Respiratory rate 16 /min 16 /min MEDENT ( [facility] ) Systolic blood pressure 130 mm[Hg] 130 mm[Hg] M EDENT ([facility] ) Body weight 152 [lb_av] 152 [lb_av] eCW1 ([facility]) Body height 61 [in_i] 61 [in_i] eCW1 ([facility]) Body mass index (BMI) [Ratio] 28.72 kg/m2 28.72 kg/m2 eCW1 ([facility]) Heart rate 65 /min 65 /min eCW1 ([facility]) Respiratory rate 18 /min 18 /min eCW1 ([facility]) Body temperature 98.0 [degF] 98.0 [degF] eCW1 ( [facility]) Systolic blood pressure 142 mm[Hg] 142 mm[Hg] e CW1 ([facility]) Diastolic blood pressure 60 mm[Hg] 60 mm[Hg] eCW1 ([facility]) Systolic blood pressure 120 mm[Hg] 120 mm[Hg] [facility] Diastolic blood pressure 66 mm[Hg] 66 mm[Hg] [facility] Heart rate 68 /min 68 /min [facility] Body weight 67.132 kg 67.132 kg [facility] Body mass index (BMI) [Ratio] 27.96 kg/m2 27.96 kg/m2 [facility] Oxygen saturation in Arterial blood by Pulse oximetry 94 % 94 % [facility] Body weight 151.2 [lb_av] 151.2 [lb_av] eCW1 ([facility]) Body height 61 [in_i] 61 [in_i] eCW1 ([facility]) Body mass index (BMI) [Ratio] 28.57 kg/m2 28.57 kg/m2 W1 ([facility]) Heart rate 63 /min 63 /min eCW1 ([facility]) Respiratory rate 18 /min 18 /min eCW1 ([facility]) Body temperature 97.1 [degF] 97.1 [degF] eCW1 ( [facility]) Systolic blood pressure 138 mm[Hg] 138 mm[Hg] e CW1 ([facility]) Diastolic blood pressure 74 mm[Hg] 74 mm[Hg] eCW1 ([facility]) Body weight 153.4 [lb_av] 153.4 [lb_av] eCW1 ([facility]) Body weight 69.5 kg 69.5 kg eCW1 ([facility]) Body height 61 [in_i] 61 [in_i] eCW1 ([facility]) Body mass index (BMI) [Ratio] 28.98 kg/m2 28.98 kg/m2 eCW1 ([facility]) Heart rate 67 /min 67 /min eCW1 ([facility]) Respiratory rate 18 /min 18 /min eCW1 ([facility]) Body temperature 98.6 [degF] 98.6 [degF] eCW1 ( [facility]) Systolic blood pressure 134 mm[Hg] 134 mm[Hg] e CW1 ([facility]) Diastolic blood pressure 62 mm[Hg] 62 mm[Hg] eCW1 ([facility]) Body weight 156.0 [lb_av] 156.0 [lb_av] eCW1 ([facility]) Body height 61 [in_i] 61 [in_i] eCW1 ([facility]) Body mass index (BMI) [Ratio] 29.47 kg/m2 29.47 kg/m2 eCW1 ([facility]) Heart rate 66 /min 66 /min eCW1 ([facility]) Respiratory rate 18 /min 18 /min eCW1 ([facility]) Body temperature 97.3 [degF] 97.3 [degF] eCW1 ( [facility]) Systolic blood pressure 131 mm[Hg] 131 mm[Hg] e CW1 ([facility]) Diastolic blood pressure 63 mm[Hg] 63 mm[Hg] eCW1 ([facility]) Systolic blood pressure 120 mm[Hg] 120 mm[Hg] M EDENT ([facility]) Diastolic blood pressure 70 mm[Hg] 70 mm[Hg] MEDENT ([facility]) Heart rate 76 /min 76 /min MEDENT ([facility]) Respiratory rate 16 /min 16 /min MEDENT ( [facility] ) Body weight 73.1 kg 73.1 kg eCW1 ([facility]) Body height 61 [in_i] 61 [in_i] eCW1 ([facility]) Body weight 161.2 [lb_av] 161.2 [lb_av] eCW1 ([facility]) Body mass index (BMI) [Ratio] 30.46 kg/m2 30.46 kg/m2 eCW1 ([facility]) Heart rate 68 /min 68 /min eCW1 ([facility]) Respiratory rate 18 /min 18 /min eCW1 ([facility]) Body temperature 99.4 [degF] 99.4 [degF] eCW1 ( [facility]) Systolic blood pressure 118 mm[Hg] 118 mm[Hg] e CW1 ([facility]) Diastolic blood pressure 62 mm[Hg] 62 mm[Hg] eCW1 ([facility]) Body weight 159 [lb_av] 159 [lb_av] eCW1 ([facility]) Body height 61 [in_i] 61 [in_i] eCW1 ([facility]) Body mass index (BMI) [Ratio] 30.04 kg/m2 30.04 kg/m2 eCW1 ([facility]) Heart rate 60 /min 60 /min eCW1 ([facility]) Respiratory rate 19 /min 19 /min eCW1 ([facility]) Body temperature 97.8 [degF] 97.8 [degF] eCW1 ( [facility]) Systolic blood pressure 111 mm[Hg] 111 mm[Hg] e CW1 ([facility]) Diastolic blood pressure 70 mm[Hg] 70 mm[Hg] eCW1 ([facility]) Systolic blood pressure 134 mm[Hg] 134 mm[Hg] [facility] Diastolic blood pressure 82 mm[Hg] 82 mm[Hg] [facility] Heart rate 62 /min 62 /min [facility] Body height 154.9 cm 154.9 cm [facility] Body weight 77.565 kg 77.565 kg [facility] Body mass index (BMI) [Ratio] 32.31 kg/m2 32.31 kg/m2 [facility] Oxygen saturation in Arterial blood by Pulse oximetry 94 % 94 % [facility] Body weight 169.8 [lb_av] 169.8 [lb_av] eCW1 ([facility]) Body height 61 [in_i] 61 [in_i] eCW1 ([facility]) Body mass index (BMI) [Ratio] 32.08 kg/m2 32.08 kg/m2 W1 ([facility]) Heart rate 74 /min 74 /min eCW1 ([facility]) Respiratory rate 18 /min 18 /min eCW1 ([facility]) Body temperature 98 [degF] 98 [degF] eCW1 ([facility]) Systolic blood pressure 152 mm[Hg] 152 mm[Hg] e CW1 ([facility]) Diastolic blood pressure 80 mm[Hg] 80 mm[Hg] W1 ([facility]) Body height 154.9 cm 154.9 cm [facility] Systolic blood pressure 136 mm[Hg] 136 mm[Hg] [facility] Diastolic blood pressure 70 mm[Hg] 70 mm[Hg] [facility] Heart rate 76 /min 76 /min [facility] Body weight 78.2 kg 78.2 kg [facility] Body mass index (BMI) [Ratio] 32.57 kg/m2 32.57 kg/m2 [facility] Oxygen saturation in Arterial blood by Pulse oximetry 96 % 96 % [facility] Systolic blood pressure 117 mm[Hg] 117 mm[Hg] e CW1 ([facility]) Diastolic blood pressure 70 mm[Hg] 70 mm[Hg] eCW1 ([facility]) Body weight 172 [lb_av] 172 [lb_av] eCW1 ([facility]) Body height 61 [in_i] 61 [in_i] eCW1 ([facility]) Body mass index (BMI) [Ratio] 32.50 kg/m2 32.50 kg/m2 W1 ([facility]) Heart rate 68 /min 68 /min eCW1 ([facility]) Respiratory rate 18 /min 18 /min eCW1 ([facility]) Body temperature 98 [degF] 98 [degF] eCW1 ([facility]) Systolic blood pressure 140 mm[Hg] 140 mm[Hg] [facility] Diastolic blood pressure 62 mm[Hg] 62 mm[Hg] [facility] Heart rate 82 /min 82 /min [facility] Body height 154.9 cm 154.9 cm [facility] Body weight 79.379 kg 79.379 kg [facility] Body mass index (BMI) [Ratio] 33.07 kg/m2 33.07 kg/m2 [facility] Oxygen saturation in Arterial blood by Pulse oximetry 88 % 88 % [facility] Systolic blood pressure 130 mm[Hg] 130 mm[Hg] [facility] Diastolic blood pressure 57 mm[Hg] 57 mm[Hg] [facility] Heart rate 67 /min 67 /min [facility] Body temperature 36.83 [place] 36.83 Kenzie [facility] Respiratory rate 18 /min 18 /min [facility] Oxygen saturation in Arterial blood by Pulse oximetry 95 % 95 % [facility] Body height 154.9 cm 154.9 cm [facility] Body weight 78.744 kg 78.744 kg [facility] Body mass index (BMI) [Ratio] 32.80 kg/m2 32.80 kg/m2 [facility] Patient Treatment Plan of Care Planned Activity Planned Date Details Description Data Source (s) Acetaminophen 325 MG / Hydrocodone Bitartrate 10 MG Or al Tablet 07/08/2021 12:00:00 AM EDT eCW1 ([facility]) Acetaminophen 325 MG / Hydrocodone Bitartrate 10 MG Or al Tablet 07/08/2021 12:00:00 AM EDT eCW1 ([facility]) Levofloxacin 500 MG Oral Tablet 05/11/2021 12:00:00 AM EDT eCW1 ([facility]) Levofloxacin 500 MG Oral Tablet 05/11/2021 12:00:00 AM EDT eCW1 ([facility]) Levofloxacin 500 MG Oral Tablet 05/11/2021 12:00:00 AM EDT eCW1 ([facility]) Acetaminophen 325 MG / Hydrocodone Bitartrate 10 MG Or al Tablet 05/04/2021 12:00:00 AM EDT eCW1 ([facility]) Acetaminophen 325 MG / Hydrocodone Bitartrate 10 MG Or al Tablet 05/04/2021 12:00:00 AM EDT eCW1 ([facility]) Acetaminophen 325 MG / Hydrocodone Bitartrate 10 MG Or al Tablet 05/04/2021 12:00:00 AM EDT eCW1 ([facility]) Acetaminophen 325 MG / Hydrocodone Bitartrate 10 MG Or al Tablet 05/04/2021 12:00:00 AM EDT eCW1 ([facility]) Acetaminophen 325 MG / Hydrocodone Bitartrate 10 MG Or al Tablet 05/04/2021 12:00:00 AM EDT eCW1 ([facility]) Acetaminophen 325 MG / Hydrocodone Bitartrate 10 MG Or al Tablet 05/04/2021 12:00:00 AM EDT eCW1 ([facility]) Acetaminophen 325 MG / Hydrocodone Bitartrate 10 MG Or al Tablet 05/04/2021 12:00:00 AM EDT eCW1 ([facility]) Acetaminophen 325 MG / Hydrocodone Bitartrate 10 MG Or al Tablet 05/04/2021 12:00:00 AM EDT eCW1 ([facility]) Acetaminophen 325 MG / Hydrocodone Bitartrate 10 MG Or al Tablet 05/04/2021 12:00:00 AM EDT eCW1 ([facility]) Acetaminophen 325 MG / Hydrocodone Bitartrate 10 MG Or al Tablet 03/09/2021 12:00:00 AM EDT eCW1 ([facility]) Acetaminophen 325 MG / Hydrocodone Bitartrate 10 MG Or al Tablet 03/09/2021 12:00:00 AM EDT eCW1 ([facility]) Metronidazole 500 MG Oral Tablet 02/10/2021 12:00:00 AM EDT eCW1 ([facility]) Acetaminophen 325 MG / Hydrocodone Bitartrate 10 MG Or al Tablet 12/30/2020 12:00:00 AM EDT eCW1 ([facility]) Acetaminophen 325 MG / Hydrocodone Bitartrate 10 MG Or al Tablet 10/27/2020 12:00:00 AM EST eCW1 ([facility]) Acetaminophen 325 MG / Hydrocodone Bitartrate 10 MG Or al Tablet 10/27/2020 12:00:00 AM EST eCW1 ([facility]) Acetaminophen 325 MG / Hydrocodone Bitartrate 10 MG Or al Tablet 10/27/2020 12:00:00 AM EST eCW1 ([facility]) Acetaminophen 325 MG / Hydrocodone Bitartrate 10 MG Or al Tablet 10/27/2020 12:00:00 AM EST eCW1 ([facility]) Acetaminophen 325 MG / Hydrocodone Bitartrate 10 MG Or al Tablet 10/27/2020 12:00:00 AM EST eCW1 ([facility]) Acetaminophen 325 MG / Hydrocodone Bitartrate 10 MG Or al Tablet 10/27/2020 12:00:00 AM EST eCW1 ([facility]) Lisinopril 5 MG Oral Tablet 09/29/2020 12:00:00 AM EST eCW1 ([facility]) Lisinopril 5 MG Oral Tablet 09/29/2020 12:00:00 AM EST eCW1 ([facility]) Lisinopril 5 MG Oral Tablet 09/29/2020 12:00:00 AM EST eCW1 ([facility]) Lisinopril 5 MG Oral Tablet 09/29/2020 12:00:00 AM EST eCW1 ([facility]) Lisinopril 5 MG Oral Tablet 09/29/2020 12:00:00 AM EST eCW1 ([facility]) Lisinopril 5 MG Oral Tablet 09/29/2020 12:00:00 AM EST eCW1 ([facility]) Lisinopril 5 MG Oral Tablet 09/29/2020 12:00:00 AM EST eCW1 ([facility]) Lisinopril 5 MG Oral Tablet 09/29/2020 12:00:00 AM EST eCW1 ([facility]) Lisinopril 5 MG Oral Tablet 09/29/2020 12:00:00 AM EST eCW1 ([facility]) Lisinopril 5 MG Oral Tablet 09/29/2020 12:00:00 AM EST [facility] Lisinopril 5 MG Oral Tablet 09/29/2020 12:00:00 AM EST eCW1 ([facility]) Lisinopril 5 MG Oral Tablet 09/29/2020 12:00:00 AM EST eCW1 ([facility]) Lisinopril 5 MG Oral Tablet 09/29/2020 12:00:00 AM EST eCW1 ([facility]) Lisinopril 5 MG Oral Tablet 09/29/2020 12:00:00 AM EST eCW1 ([facility]) Lisinopril 5 MG Oral Tablet 09/29/2020 12:00:00 AM EST eCW1 ([facility]) Lisinopril 5 MG Oral Tablet 09/29/2020 12:00:00 AM EST eCW1 ([facility]) Lisinopril 5 MG Oral Tablet 09/29/2020 12:00:00 AM EST eCW1 ([facility]) Lisinopril 5 MG Oral Tablet 09/29/2020 12:00:00 AM EST eCW1 ([facility]) Lisinopril 5 MG Oral Tablet 09/29/2020 12:00:00 AM EST eCW1 ([facility]) Lisinopril 5 MG Oral Tablet 09/29/2020 12:00:00 AM EST eCW1 ([facility]) Amlodipine 5 MG Oral Tablet 09/17/2020 12:00:00 AM EST [facility] Atenolol 50 MG Oral Tablet 09/01/2020 12:00:00 AM EST [facility] Lisinopril 5 MG Oral Tablet 07/28/2020 12:00:00 AM EST [facility] 24 HR Isosorbide Mononitrate 60 MG Extended Release Or al Tablet 07/26/2020 12:00:00 AM EDT [facility] Amlodipine 5 MG Oral Tablet 07/26/2020 12:00:00 AM EDT [facility] Metoprolol Tartrate 25 MG Oral Tablet 07/25/2020 12:00:00 AM EDT [facility] Docusate Sodium 100 MG Oral Capsule 03/26/2019 12:00:00 AM EDT [facility] POLYETHYLENE GLYCOL 3350 142 MG/ML Oral Solution 03/26/2019 12:00:0 0 AM EDT [facility] Lisinopril 20 MG Oral Tablet [facility] METOPROLOL TARTRATE PO [facility] Metronidazole 500 MG Oral Tablet [facility] Amlodipine 10 MG Oral Tablet [facility] LEVETIRACETAM ER PO [facility] 1 ML evolocumab 140 MG/ML Prefilled Syringe [facility] Lisinopril 20 MG Oral Tablet [facility] Atenolol 50 MG Oral Tablet [facility] Amlodipine 10 MG Oral Tablet [facility]
--- OUTSIDE RECORDS SUMMARY | 2021-07-14 17:41 | CCD ---
Author Author [facility] Organization [facility] Address Unknown Phone Unavailable Care Team Providers Care Sales Recruiter Name Role Phone Baljit Zabala MD Unavailable [...] Unavailable Unavailable Baljit Zabala MD Unavailable Unavailable Balijt Zabala MD Unavailable Unavailable Baljit Zabala MD [...] [facility] Unavailable Unavailable ALVARES, VANESSA ALBERT CLIENT RELATIONSHIP CONSULTANT Unavailable Unavailable ALVARES, VANESSA ALBERT CLIENT RELATIONSHIP CONSULTANT Unavailable Unavailable ALVARES, VANESSA ALBERT CLIENT RELATIONSHIP CONSULTANT Unavailable Unavailable ALVARES, VANESSA ALBERT CLIENT RELATIONSHIP CONSULTANT Unavailable Unavailable ALVARES, VANESSA ALBERT CLIENT RELATIONSHIP CONSULTANT Unavailable Unavailable ALVARES, VANESSA ALBERT CLIENT RELATIONSHIP CONSULTANT Unavailable Unavailable ALVARES, VANESSA ALBERT CLIENT RELATIONSHIP CONSULTANT Unavailable Unavailable ALVARES, VANESSA ALBERT CLIENT RELATIONSHIP CONSULTANT Unavailable Unavailable ALVARES, VANESSA ALBERT CLIENT RELATIONSHIP CONSULTANT Unavailable Unavailable ALVARES, VANESSA ALBERT CLIENT RELATIONSHIP CONSULTANT Unavailable Unavailable ALVARES, VANESSA ALBERT CLIENT RELATIONSHIP CONSULTANT Unavailable Unavailable ALVARES, VANESSA ALBERT CLIENT RELATIONSHIP CONSULTANT Unavailable Unavailable ALVARES, VANESSA ALBERT CLIENT RELATIONSHIP CONSULTANT Unavailable Unavailable ALVARES, VANESSA ALBERT CLIENT RELATIONSHIP CONSULTANT Unavailable Unavailable ALVARES, VANESSA ALBERT CLIENT RELATIONSHIP CONSULTANT Unavailable Unavailable ALVARES, VANESSA ALBERT CLIENT RELATIONSHIP CONSULTANT Unavailable Unavailable ALVARES, VANESSA ALBERT CLIENT RELATIONSHIP CONSULTANT Unavailable Unavailable ALVARES, VANESSA ALBERT CLIENT RELATIONSHIP CONSULTANT Unavailable Unavailable ALVARES, VANESSA ALBERT CLIENT RELATIONSHIP CONSULTANT Unavailable Unavailable ALVARES, VANESSA ALBERT CLIENT RELATIONSHIP CONSULTANT Unavailable Unavailable ALVARES, VANESSA ALBERT CLIENT RELATIONSHIP CONSULTANT Unavailable Unavailable ALVARES, VANESSA ALBERT CLIENT RELATIONSHIP CONSULTANT Unavailable Unavailable ALVARES, VANESSA ALBERT CLIENT RELATIONSHIP CONSULTANT Unavailable Unavailable ALVARES, VANESSA ALBRET CLIENT RELATIONSHIP CONSULTANT Unavailable Unavailable ALVARES, VANESSA ALBERT CLIENT RELATIONSHIP CONSULTANT Unavailable Unavailable ALVARES, VANESSA ALBERT CLIENT RELATIONSHIP CONSULTANT Unavailable Unavailable ALVARES, VANESSA ALBERT CLIENT RELATIONSHIP CONSULTANT Unavailable Unavailable ALVARES, VANESSA ALBERT CLIENT RELATIONSHIP CONSULTANT Unavailable Unavailable ALVARES, VANESSA ALBERT CLIENT RELATIONSHIP CONSULTANT Unavailable Unavailable ALVARES, VANESSA ALBERT CLIENT RELATIONSHIP CONSULTANT Unavailable Unavailable ALVARES, VANESSA ABLERT CLIENT RELATIONSHIP CONSULTANT Unavailable Unavailable ALVARES, VANESSA ALBERT CLIENT RELATIONSHIP CONSULTANT Unavailable Unavailable ALVARES, VANESSA ALBERT CLIENT RELATIONSHIP CONSULTANT Unavailable Unavailable ALVARES, VANESSA ALBERT CLIENT RELATIONSHIP CONSULTANT Unavailable Unavailable ALVARES, VANESSA ALBERT CLIENT RELATIONSHIP CONSULTANT Unavailable Unavailable ALVARES, VANESSA ALBERT CLIENT RELATIONSHIP CONSULTANT Unavailable Unavailable ALVARES, VANESSA ALBERT CLIENT RELATIONSHIP CONSULTANT Unavailable Unavailable ALVARES, VANESSA ALBERT CLIENT RELATIONSHIP CONSULTANT Unavailable Unavailable ALVARES, VANESSA ALBERT CLIENT RELATIONSHIP CONSULTANT Unavailable Unavailable ALVARES, VANESSA ALBERT CLIENT RELATIONSHIP CONSULTANT Unavailable Unavailable ALVARES, VANESSA ALBERT CLIENT RELATIONSHIP CONSULTANT Unavailable Unavailable ALVARES, VANESSA ALBERT CLIENT RELATIONSHIP CONSULTANT Unavailable Unavailable ALVARES, VANESSA ALBERT CLIENT RELATIONSHIP CONSULTANT Unavailable Unavailable ALVARES, VANESSA ALBERT CLIENT RELATIONSHIP CONSULTANT Unavailable Unavailable ALVARES, VANESSA ALBERT CLIENT RELATIONSHIP CONSULTANT Unavailable Unavailable ALVARES, VANESSA ALBERT CLIENT RELATIONSHIP CONSULTANT Unavailable Unavailable ALVARES, VANESSA ALBERT CLIENT RELATIONSHIP CONSULTANT Unavailable Unavailable ALVARES, VANESSA ALBERT CLIENT RELATIONSHIP CONSULTANT Unavailable Unavailable ALVARES, VANESSA ALBERT CLIENT RELATIONSHIP CONSULTANT Unavailable Unavailable ALVARES, VANESSA ALBERT CLIENT RELATIONSHIP CONSULTANT Unavailable Unavailable SYMENOW, G CHRISTOPHER PA Unavailable [...] Unavailable Trickey, J Zari PA Unavailable Unavailable DREA TAO JR Unavailable Unavailable Pauline Hernandez MD Unavailable Unavailable Pauline Hernandez MD Unavailable Unavailable Pauline Hernandez MD Unavailable Unavailable Pauline Hernandez MD Unavailable Unavailable Pauline Hernandez MD Unavailable Unavailable Pauline Hernandez MD Unavailable Unavailable Pauline Hernandez MD Unavailable Unavailable Pauline Hernandez MD Unavailable Unavailable Pauline Hernandez MD Unavailable Unavailable Pauline Hernandez MD Unavailable Unavailable Pauline Hernandez MD Unavailable Unavailable MARILY, NING ANTHONY PA Unavailable [...] PA Unavailable Unavailable KWAME TAO JR Unavailable [phone] KWAME TAO JR Unavailable [phone] KWAME TAO JR Unavailable [phone] Franny YOUNGER Unavailable [phone] Franny YOUNGER Unavailable [phone] Franny YOUNGER Unavailable [phone] Franny YOUNGER Unavailable [phone] Franny YOUNGER Unavailable [phone] DREA BLEDSOE Unavailable Unavailable ANA HINTON MD Unavailable Unavailable BEM, ANA MD Unavailable Unavailable BEM, ANA MD Unavailable Unavailable BEM, ANA MD Unavailable Unavailable BEM, ANA MD Unavailable Unavailable BEM, ANA MD Unavailable Unavailable BEM, ANA MD Unavailable Unavailable BEM, AAN MD Unavailable Unavailable BEM, ANA MD Unavailable [...] Unavailable Unavailable BEM, ANA MD Unavailable Unavailable MigeedFacundo MD Unavailable Unavaila ble Migeed, Facundo [...] Galindo MD Unavailable Unavaila ble Migeed, Facundo Yousifel Galindo MD Unavailable Unavaila ble MigeedFacundo MD [...] Unavailable Unavaila ble MigeedFacundo MD Unavailable Unavaila Kai Mckeon MD Unavailable Unavailable Kai Dahl MD Unavailable [...] Unavailable RAINA, L SONALI PA Unavailable Unavailable Lynn, V BOBY PA-C Unavailable Unavailable Lynn, V BOBY PA-C Unavailable Unavailable Lynn, V BOBY PA-C Unavailable Unavailable Lynn, V BOBY PA-C Unavailable Unavailable Lynn, V BOBY PA-C Unavailable Unavailable Lynn, V BOBY PA-C Unavailable Unavailable Lynn, V BOBY PA-C Unavailable Unavailable Maria Esther, V BOBY PA-C Unavailable Unavailable Lynn, V BOBY PA-C Unavailable Unavailable Maria Esther, V BOBY PA-C Unavailable Unavailable Lynn, V BOBY PA-C Unavailable Unavailable Lynn, V BOBY PA-C Unavailable Unavailable Maria Esther, V BOBY PA-C Unavailable Unavailable Lynn, V BOBY PA-C Unavailable Unavailable Hsu, W [...] is protected by Article 27-F of the [facility] Public Health law. If you continue you may have access to information: Regarding HIV / AIDS; Provided by facilities licensed or operated by the [facility] Office of Mental Health; or Provided by the [facility] Office for People With Developmental Disabilities. If such information is present, then the following [facility] mandated warning applies: This information has [...] law may result in a fine or skilled nursing sentence or both. A general authorization for the release of medical or other information is NOT sufficient authorization for further disc losure. Family History Family Member Name Family Member Gender Family Member Status Date o f Status Description Data Source(s) Unknown Male Problem MEDENT ([facility]) Unknown Unknown Problem MEDENT ([facility], ) Encounters Encounter Providers Location Date Indications Data Source(s ) Unknown [address] [facility] [place] [address] 07/12/2021 12:00:00 AM EDT eCW1 ([facility]) Unknown [address] [facility] [place] Y [address] 07/08/2021 12:00:00 AM EDT eCW1 ([facility]) Unknown [address] [facility] [address] Y [address] 07/07/2021 12:00:00 AM EDT eCW1 ([facility]) Unknown [address] [facility] Y [address] 06/29/2021 12:00:00 AM EDT eCW1 ([facility]) Unknown [address] [facility] [address] 06/28/2021 12:00:00 AM EDT eCW1 ([facility]) Outpatient SJP.CT-SJP.SYR 06/03/2021 11:46:[address] [facility] Outpatient [address] [facility] [address] 05/25/2021 12:00:00 AM EDT eCW1 ([facility]) Emergency Attender: ANTHONY Chandraer: Eva ALVARES CLIENT RELATIONSHIP CONSULTANT EMERGENCY ROOM-ER 05/20/2021 02:14:00 PM EDT - 05/20/2021 02:35:00 PM EDT [facility] [place] Patient discharged. Unknown [address] [facility] [address] 05/14/2021 12:00:00 AM EDT eCW1 ([facility]) Outpatient [address] [facility] [address] 05/11/2021 12:00:00 AM EDT eCW1 ([facility]) (PN Proc 60) Pain Procedure 60 [address] [place] [address] 05/10/2021 12:00:00 AM EDT eCW1 ([facility]) Unknown [address] [facility] [address] 05/10/2021 12:00:00 AM EDT eCW1 ([facility]) Unknown [address] [facility] Y [address] 05/07/2021 12:00:00 AM EDT eCW1 ([facility]) Outpatient Attender: Zair KATE Main office - [facility] 05/06/2021 08:00:00 AM EDT MEDENT ([facility] MIGDALIA galindo) Unknown [address] [facility] [address] 05/04/2021 12:00:00 AM EDT eCW1 ([facility]) Unknown [address] [facility], Y [address] 04/30/2021 12:00:00 AM EDT eCW1 ([facility]) Unknown [address] [facility], Y [address] 04/12/2021 12:00:00 AM EDT eCW1 ([facility]) Unknown [address] [facility], Y [address] 04/08/2021 12:00:00 AM EDT eCW1 ([facility]) Outpatient [address] [facility] [address] 04/08/2021 12:00:00 AM EDT eCW1 ([facility]) Unknown [address] [facility] Y [address] 04/02/2021 12:00:00 AM EDT eCW1 ([facility]) Outpatient Attender: BOBY MARTINES 04/2021 12:00:00 AM EDT - 04/01/2021 01:43:[address] [facility] Unknown [address] [facility], [facility] [address] 03/26/2021 12:00:00 AM EDT eCW1 ([facility]) (PN Proc 45) Pain Procedure 45 [address] [place] [address] 03/25/2021 12:00:00 AM EDT eCW1 ([facility]) Unknown [address] [facility] Y [address] 03/09/2021 12:00:00 AM EDT eCW1 ([facility]) Outpatient [address] [facility] [id number] 02/26/2021 12:00:00 AM EDT eCW1 ([facility]) Outpatient CTMARIANO.HUMA 02/25/2021 12:48:[address] [facility] Unknown [address] [facility] [place] [address] 02/25/2021 12:00:00 AM EDT eCW1 ([facility]) Unknown [address] [facility] [place] [address] 02/16/2021 12:00:00 AM EDT eCW1 ([facility]) Outpatient [address] [facility] Y [address] 02/16/2021 12:00:00 AM EDT eCW1 ([facility]) Unknown [address] [facility] N Y [address] 02/11/2021 12:00:00 AM EDT eCW1 ([facility]) Unknown [address] [facility] [place] [address] 02/10/2021 12:00:00 AM EDT eCW1 ([facility]) Outpatient Referrer: Zari KATE 01/27/2021 12:00:00 A M EDT Low back pain [facility] Low back pain Unknown [address] [facility] [place] [address] 01/25/2021 12:00:00 AM EDT eCW1 ([facility]) Outpatient Attender: Zari KATE [facility] 01/19/2021 10:45:00 AM EDT MEDENT ([facility] MIGDALIA Garcia) Unknown [address] [facility] [place] [address] 01/14/2021 12:00:00 AM EDT eCW1 ([facility]) Unknown [address] [facility] [place] [address] 01/08/2021 12:00:00 AM EDT eCW1 ([facility]) Outpatient [address] [facility] Y [address] 01/07/2021 12:00:00 AM EDT eCW1 ([facility]) Outpatient [address] [facility] Y [address] 12/30/2020 12:00:00 AM EDT eCW1 ([facility]) Unknown [address] [facility] [place] [address] 12/29/2020 12:00:00 AM EDT eCW1 ([facility]) Outpatient P.GINA-SJP 12/16/2020 09:19:[address] [facility] Unknown [address] [facility] [place] [address] 12/15/2020 12:00:00 AM EDT eCW1 ([facility]) Unknown [address] [facility] [place] [address] 11/20/2020 12:00:00 AM EST eCW1 ([facility]) Outpatient Attender: BOBY TORRES-SJP.GINA 12:00:00 AM EST - 11/19/2020 03:15:[address] [facility] Outpatient PADEN-SJP.GINA 11/19/2020 12:00:[address] [facility] Unknown [address] [facility], [place] [address] 11/12/2020 12:00:00 AM EST eCW1 ([facility]) Unknown [address] [facility] [place] [address] 10/27/2020 12:00:00 AM EST eCW1 ([facility]) Unknown [address] [facility] Y [address] 10/27/2020 12:00:00 AM EST eCW1 ([facility]) Office Visit Attender: Zari KATE Main office - [facility] 10/21/2020 11:00:00 AM EST MEDENT ([facility] MIGDALIA galindo) Unknown [address] [facility] [place] [address] 10/08/2020 12:00:00 AM EST eCW1 ([facility]) Unknown [address] [facility] Y [address] 10/08/2020 12:00:00 AM EST eCW1 ([facility]) Outpatient Attender: Helio Zabala MDReferrer: ALBERT ALVARES NP 10/02/2020 04:30:00 PM [facility] Outpatient [address] [facility], [place] [address] 09/29/2020 12:00:00 AM EST eCW1 ([facility]) Unknown [address] [facility], [place] [address] 09/23/2020 12:00:00 AM EST eCW1 ([facility]) Unknown [address] [facility], [place] [address] 09/16/2020 12:00:00 AM EST eCW1 ([facility]) Unknown [address] [facility] [place] [address] 09/04/2020 12:00:00 AM EST eCW1 ([facility]) Outpatient Attender: BOBY MUJICA.GINA 04/2020 12:00:00 AM EST - 09/01/2020 12:01:[address] [facility] Unknown [address] [facility] [place] [address] 09/01/2020 12:00:00 AM EST eCW1 ([facility]) Emergency Attender: LEIGHANN Fountain PAAttender: SONALI PARIS PAReferrer: ALBERT ALVARES NP EMERGENCY ROOM-ER 08/25/2020 06:47:00 PM EST - 08/25/2020 08:50:00 PM [facility] Patient discharged. Outpatient Attender: LEIGHANN STAHL PAConsultant: [id number] 08/25/2020 06:22:00 PM [facility] Office Visit Attender: Zari KATE Main office - [facility] 08/19/2020 09:45:00 AM EST MEDENT ([facility] Unknown [address] [facility], [place] [address] 08/18/2020 12:00:00 AM EST eCW1 ([facility]) Outpatient SJP.GINA-YANGP 08/13/2020 10:30:[address] [facility] Outpatient SJP.GINA-SJP.GINA 08/13/2020 12:00:[address] [facility] Outpatient Attender: BOBY BO.GINA-SJP.GINA 01/2020 12:00:00 AM EST - 07/30/2020 12:44:[address] [facility] ([facility]) Transition of Care Visit [address] [place] [address] 07/30/2020 12:00:00 AM EST eCW1 ([facility]) Unknown [address] [facility] [address] 07/27/2020 12:00:00 AM EST eCW1 ([facility]) Inpatient Attender: Kai Dahl MDAtt angle: Pauline Hernandez MDAdmitter: Pauline Hernandez MDConsultant: Josie Arana MD [id number] 07/23/2020 08:4 6:24 PM EDT - 07/28/2020 02:41:00 PM [facility] Patient discharged. Emergency Attender: IVORY Preciadoerrer: ASHKAN ALVARES NP EMERGENCY ROOM-ER 07/23/2020 04:11:00 PM EDT - 07/23/2020 06:42:00 PM [facility] Patient discharged. Unknown [address] [facility] [address] 07/14/2020 12:00:00 AM EDT eCW1 ([facility]) Unknown [address] [facility] [place] [address] 06/26/2020 12:00:00 AM EDT eCW1 ([facility]) Outpatient Attender: Helio LOPEZeferrer: ALBERT ALVARES NP 05/21/2020 01:00:00 PM [facility] Emergency Attender: ANTHONY Preciadoerrer: Eva ALVARES NP EMERGENCY ROOM-ER 03/23/2019 04:00:00 AM EDT - 03/23/2019 12:15:00 PM [facility] Emergency Attender: Yajaira SHAHID Attender: SONALI PARIS PAReferrer: ALBERT ALVARES CLIENT RELATIONSHIP CONSULTANT EMERGENCY ROOM-ER 03/16/2019 07:20:00 PM EDT - 03/16/2019 09:45:00 PM [facility] Patient discharged. Inpatient Attender: KWAME TAO JR Attender: KWAME TAO JRAdmitter: DERICK HOPEeferrer: ALBERT ALVARES CLIENT RELATIONSHIP CONSULTANT EMERGENCY ROOM-2N 04/01/2018 12:12:00 AM EDT - 04/01/2018 03:22:00 PM [facility] Emergency Attender: ANTHONY CALIXTO PAReferrer: Eva ALVARES CLIENT RELATIONSHIP CONSULTANT EMERGENCY ROOM-ER 12/08/2017 08:00:00 AM EDT - 12/08/2017 11:46:00 AM [facility] Inpatient Attender: LEIGHANN Fountain PAAttender: YAJAIRA MACKAYdmitter: YAJAIRA YOUNGERReferrer: ALBERT ALVARES CLIENT RELATIONSHIP CONSULTANT EMERGENCY ROOM-2N 11/08/2017 02:04:00 PM EST - 11/06/2017 11:18:00 AM [facility] Outpatient Attender: ANA LOPEZeferrer: ALBERT Vidal P 04/12/2017 10:38:00 AM [facility] Outpatient Attender: ALBERT ALVARES NPReferrer: CANDE ALVARES CLIENT RELATIONSHIP CONSULTANT EMERGENCY ROOM-CT 02/16/2017 08:00:00 AM EDT - 02/16/2017 08:00:00 AM [facility] Emergency Attender: YAJAIRA YOUNGER EMERGENCY ROOM-ER 10/23 10:27:00 AM EST - 10/23/2016 02:26:00 PM [facility] Emergency Attender: LEIGHANN KATE EMERGENCY ROOM- ER 07/26/2016 02:25:00 AM EDT - 07/26/2016 07:23:00 AM [facility] Immunizations Vaccine Date Status Description Data Source(s) COVID-19 dose #2 given elsewhere Unspecified 11/15/2020 04:0 1:00 PM EST completed eCW1 ([facility]) COVID-19 dose #2 given elsewhere Unspecified 11/15/2020 04:0 1:00 PM EST completed eCW1 ([facility]) COVID-19 dose #2 given elsewhere Unspecified 11/15/2020 04:0 1:00 PM EST completed eCW1 ([facility]) COVID-19 dose #2 given elsewhere Unspecified 11/15/2020 04:0 1:00 PM EST completed eCW1 ([facility]) COVID-19 dose #2 given elsewhere Unspecified 11/15/2020 04:0 1:00 PM EST completed eCW1 ([facility]) COVID-19 dose #2 given elsewhere Unspecified 11/15/2020 04:0 1:00 PM EST completed eCW1 ([facility]) COVID-19 dose #2 given elsewhere Unspecified 11/15/2020 04:0 1:00 PM EST completed eCW1 ([facility]) COVID-19 dose #2 given elsewhere Unspecified 11/15/2020 04:0 1:00 PM EST completed eCW1 ([facility]) COVID-19 dose #2 given elsewhere Unspecified 11/15/2020 04:0 1:00 PM EST completed eCW1 ([facility]) COVID-19 dose #2 given elsewhere Unspecified 11/15/2020 04:0 1:00 PM EST completed eCW1 ([facility]) COVID-19 dose #2 given elsewhere Unspecified 11/15/2020 04:0 1:00 PM EST completed eCW1 ([facility]) COVID-19 dose #2 given elsewhere Unspecified 11/15/2020 04:0 1:00 PM EST completed eCW1 ([facility]) COVID-19 dose #2 given elsewhere Unspecified 11/15/2020 04:0 1:00 PM EST completed eCW1 ([facility]) COVID-19 dose #2 given elsewhere Unspecified 11/15/2020 04:0 1:00 PM EST completed eCW1 ([facility]) COVID-19 dose #2 given elsewhere Unspecified 11/15/2020 04:0 1:00 PM EST completed eCW1 ([facility]) COVID-19 dose #2 given elsewhere Unspecified 11/15/2020 04:0 1:00 PM EST completed eCW1 ([facility]) COVID-19 dose #2 given elsewhere Unspecified 11/15/2020 04:0 1:00 PM EST completed eCW1 ([facility]) COVID-19 dose #2 given elsewhere Unspecified 11/15/2020 04:0 1:00 PM EST completed eCW1 ([facility]) COVID-19 dose #2 given elsewhere Unspecified 11/15/2020 04:0 1:00 PM EST completed eCW1 ([facility]) COVID-19 dose #2 given elsewhere Unspecified 11/15/2020 04:0 1:00 PM EST completed eCW1 ([facility]) COVID-19 dose #2 given elsewhere Unspecified 11/15/2020 04:0 1:00 PM EST completed eCW1 ([facility]) COVID-19 dose #2 given elsewhere Unspecified 11/15/2020 04:0 1:00 PM EST completed eCW1 ([facility]) COVID-19 dose #2 given elsewhere Unspecified 11/15/2020 04:0 1:00 PM EST completed eCW1 ([facility]) COVID-19 dose #2 given elsewhere Unspecified 11/15/2020 04:0 1:00 PM EST completed eCW1 ([facility]) COVID-19 dose #2 given elsewhere Unspecified 11/15/2020 04:0 1:00 PM EST completed eCW1 ([facility]) COVID-19 dose #2 given elsewhere Unspecified 11/15/2020 04:0 1:00 PM EST completed eCW1 ([facility]) COVID-19 dose #2 given elsewhere Unspecified 11/15/2020 04:0 1:00 PM EST completed eCW1 ([facility]) COVID-19 dose #2 given elsewhere Unspecified 11/15/2020 04:0 1:00 PM EST completed eCW1 ([facility]) COVID-19 dose #2 given elsewhere Unspecified 11/15/2020 04:0 1:00 PM EST completed eCW1 ([facility]) COVID-19 dose #2 given elsewhere Unspecified 11/15/2020 04:0 1:00 PM EST completed eCW1 ([facility]) COVID-19 dose #2 given elsewhere Unspecified 11/15/2020 04:0 1:00 PM EST completed eCW1 ([facility]) COVID-19 VACCINE Pfizer 11/15/2020 12:00:00 AM EST completed [employer] Vaccine Series Complete: YESThis Data wa s Submitted to [facility] Via [employer]. COVID-19 dose #1 given elsewhere Unspecified 10/25/2020 04:0 0:00 PM EST completed eCW1 ([facility]) COVID-19 dose #1 given elsewhere Unspecified 10/25/2020 04:0 0:00 PM EST completed eCW1 ([facility]) COVID-19 dose #1 given elsewhere Unspecified 10/25/2020 04:0 0:00 PM EST completed eCW1 ([facility]) COVID-19 dose #1 given elsewhere Unspecified 10/25/2020 04:0 0:00 PM EST completed eCW1 ([facility]) COVID-19 dose #1 given elsewhere Unspecified 10/25/2020 04:0 0:00 PM EST completed eCW1 ([facility]) COVID-19 dose #1 given elsewhere Unspecified 10/25/2020 04:0 0:00 PM EST completed eCW1 ([facility]) COVID-19 dose #1 given elsewhere Unspecified 10/25/2020 04:0 0:00 PM EST completed eCW1 ([facility]) COVID-19 dose #1 given elsewhere Unspecified 10/25/2020 04:0 0:00 PM EST completed eCW1 ([facility]) COVID-19 dose #1 given elsewhere Unspecified 10/25/2020 04:0 0:00 PM EST completed eCW1 ([facility]) COVID-19 dose #1 given elsewhere Unspecified 10/25/2020 04:0 0:00 PM EST completed eCW1 ([facility]) COVID-19 dose #1 given elsewhere Unspecified 10/25/2020 04:0 0:00 PM EST completed eCW1 ([facility]) COVID-19 dose #1 given elsewhere Unspecified 10/25/2020 04:0 0:00 PM EST completed eCW1 ([facility]) COVID-19 dose #1 given elsewhere Unspecified 10/25/2020 04:0 0:00 PM EST completed eCW1 ([facility]) COVID-19 dose #1 given elsewhere Unspecified 10/25/2020 04:0 0:00 PM EST completed eCW1 ([facility]) COVID-19 dose #1 given elsewhere Unspecified 10/25/2020 04:0 0:00 PM EST completed eCW1 ([facility]) COVID-19 dose #1 given elsewhere Unspecified 10/25/2020 04:0 0:00 PM EST completed eCW1 ([facility]) COVID-19 dose #1 given elsewhere Unspecified 10/25/2020 04:0 0:00 PM EST completed eCW1 ([facility]) COVID-19 dose #1 given elsewhere Unspecified 10/25/2020 04:0 0:00 PM EST completed eCW1 ([facility]) COVID-19 dose #1 given elsewhere Unspecified 10/25/2020 04:0 0:00 PM EST completed eCW1 ([facility]) COVID-19 dose #1 given elsewhere Unspecified 10/25/2020 04:0 0:00 PM EST completed eCW1 ([facility]) COVID-19 dose #1 given elsewhere Unspecified 10/25/2020 04:0 0:00 PM EST completed eCW1 ([facility]) COVID-19 dose #1 given elsewhere Unspecified 10/25/2020 04:0 0:00 PM EST completed eCW1 ([facility]) COVID-19 dose #1 given elsewhere Unspecified 10/25/2020 04:0 0:00 PM EST completed eCW1 ([facility]) COVID-19 dose #1 given elsewhere Unspecified 10/25/2020 04:0 0:00 PM EST completed eCW1 ([facility]) COVID-19 dose #1 given elsewhere Unspecified 10/25/2020 04:0 0:00 PM EST completed eCW1 ([facility]) COVID-19 dose #1 given elsewhere Unspecified 10/25/2020 04:0 0:00 PM EST completed eCW1 ([facility]) COVID-19 dose #1 given elsewhere Unspecified 10/25/2020 04:0 0:00 PM EST completed eCW1 ([facility]) COVID-19 dose #1 given elsewhere Unspecified 10/25/2020 04:0 0:00 PM EST completed eCW1 ([facility]) COVID-19 dose #1 given elsewhere Unspecified 10/25/2020 04:0 0:00 PM EST completed eCW1 ([facility]) COVID-19 dose #1 given elsewhere Unspecified 10/25/2020 04:0 0:00 PM EST completed eCW1 ([facility]) COVID-19 dose #1 given elsewhere Unspecified 10/25/2020 04:0 0:00 PM EST completed eCW1 ([facility]) COVID-19 VACCINE Pfizer 10/25/2020 12:00:00 AM EST completed [employer] Vaccine Series Complete: NOThis Data was Submitted to [facility] Via [employer]. New in 2011. IIV4 07/25/2020 12:00:00 AM EDT completed <t d ID="[id number]">Flu Vaccine =>6MOS Quad Pres-Free</td><td>07/25/2020</td><td></td> [facility] Medications Medication Brand Name Start Date Product [...] {tablet_as_needed} active HYDROcodone-Acetaminophen 10- 325 MG eCW1 ([facility]) Acetaminophen 325 MG / Hydrocodone Caryl trate 10 MG Oral Tablet HYDROcodone- Acetaminophen 10-325 MG HYDROcodone-Acetaminophen 10-325 MG 07/08/2021 12:00:0 0 AM EDT 1.0 {tablet_as_needed} active HYDROcodone-Acetaminophen 10- 325 MG eCW1 ([facility]) 30 mg 06/17/2021 12:00:00 AM EDT capsule,delayed [...] 1.0 {tablet} active levoFLOXacin 500 MG eCW1 ([facility]) Levofloxacin 500 MG Oral Tablet levoFLOXacin 500 MG levoFLOX acin 500 MG 05/11/2021 12:00:00 AM EDT 1.0 {tablet} suspende d levoFLOXacin 500 MG eCW1 ([facility]) Levofloxacin 500 MG Oral Tablet levoFLOXacin 500 MG levoFLOX acin 500 MG 05/11/2021 12:00:00 AM EDT 1.0 {tablet} active levoFLOXacin 500 MG eCW1 ([facility]) 500 mg 05/11/2021 12:00:00 AM EDT tablet 10 TAKE ONE TABLET BY MOUTH EVERY DAY FOR 10 DAYS TAKE ONE TABLET BY MOUTH EVERY DAY FOR 10 DAYS SOLD: [facility] Levofloxacin 500 MG Oral Tablet levoFLOXacin 500 MG levoFLOX acin 500 MG 05/11/2021 12:00:00 AM EDT 1.0 {tablet} suspende d levoFLOXacin 500 MG eCW1 ([facility]) Levofloxacin 500 MG Oral Tablet levoFLOXacin 500 MG levoFLOX acin 500 MG 05/11/2021 12:00:00 AM EDT 1.0 {tablet} suspende d levoFLOXacin 500 MG eCW1 ([facility]) Levofloxacin 500 MG Oral Tablet levoFLOXacin 500 MG levoFLOX acin 500 MG 05/11/2021 12:00:00 AM EDT 1.0 {tablet} suspende d levoFLOXacin 500 MG eCW1 ([facility]) Levofloxacin 500 MG Oral Tablet levoFLOXacin 500 MG levoFLOX acin 500 MG 05/11/2021 12:00:00 AM EDT 1.0 {tablet} suspende d levoFLOXacin 500 MG eCW1 ([facility]) Levofloxacin 500 MG Oral Tablet levoFLOXacin 500 MG levoFLOX acin 500 MG 05/11/2021 12:00:00 AM EDT 1.0 {tablet} suspende d levoFLOXacin 500 MG eCW1 ([facility]) Levofloxacin 500 MG Oral Tablet levoFLOXacin 500 MG levoFLOX acin 500 MG 05/11/2021 12:00:00 AM EDT 1.0 {tablet} active levoFLOXacin 500 MG eCW1 ([facility]) Metronidazole 500 MG Oral Tablet METRONIDAZOLE 05/07/2021 [...] {tablet_as_needed} active HYDROcodone-Acetaminophen 10- 325 MG eCW1 ([facility]) Acetaminophen 325 MG / Hydrocodone Caryl trate 10 MG Oral Tablet HYDROcodone- Acetaminophen 10-325 MG HYDROcodone-Acetaminophen 10-325 MG 05/04/2021 12:00:0 0 AM EDT 1.0 {tablet_as_needed} active HYDROcodone-Acetaminophen 10- 325 MG eCW1 ([facility]) Acetaminophen 325 MG / Hydrocodone Caryl trate 10 MG Oral Tablet HYDROcodone- Acetaminophen 10-325 MG HYDROcodone-Acetaminophen 10-325 MG 05/04/2021 12:00:0 0 AM EDT 1.0 {tablet_as_needed} active HYDROcodone-Acetaminophen 10- 325 MG eCW1 ([facility]) Acetaminophen 325 MG / Hydrocodone Caryl trate 10 MG Oral Tablet HYDROcodone- Acetaminophen 10-325 MG HYDROcodone-Acetaminophen 10-325 MG 05/04/2021 12:00:0 0 AM EDT 1.0 {tablet_as_needed} active HYDROcodone-Acetaminophen 10- 325 MG eCW1 ([facility]) Acetaminophen 325 MG / Hydrocodone Caryl trate 10 MG Oral Tablet HYDROcodone- Acetaminophen 10-325 MG HYDROcodone-Acetaminophen 10-325 MG 05/04/2021 12:00:0 0 AM EDT 1.0 {tablet_as_needed} active HYDROcodone-Acetaminophen 10- 325 MG eCW1 ([facility]) Acetaminophen 325 MG / Hydrocodone Caryl trate 10 MG Oral Tablet HYDROcodone- Acetaminophen 10-325 MG HYDROcodone-Acetaminophen 10-325 MG 05/04/2021 12:00:0 0 AM EDT 1.0 {tablet_as_needed} active HYDROcodone-Acetaminophen 10- 325 MG eCW1 ([facility]) Acetaminophen 325 MG / Hydrocodone Caryl trate 10 MG Oral Tablet HYDROcodone- Acetaminophen 10-325 MG HYDROcodone-Acetaminophen 10-325 MG 05/04/2021 12:00:0 0 AM EDT 1.0 {tablet_as_needed} active HYDROcodone-Acetaminophen 10- 325 MG eCW1 ([facility]) Acetaminophen 325 MG / Hydrocodone Bitartrate 10 [...] {tablet_as_needed} active HYDROcodone-Acetaminophen 10- 325 MG eCW1 ([facility]) Acetaminophen 325 MG / Hydrocodone Caryl trate 10 MG Oral Tablet HYDROcodone- Acetaminophen 10-325 MG HYDROcodone-Acetaminophen 10-325 MG 05/04/2021 12:00:0 0 AM EDT 1.0 {tablet_as_needed} active HYDROcodone-Acetaminophen 10- 325 MG eCW1 ([facility]) Acetaminophen 325 MG / Hydrocodone Caryl trate 10 MG Oral Tablet HYDROcodone- Acetaminophen 10-325 MG HYDROcodone-Acetaminophen 10-325 MG 05/04/2021 12:00:0 0 AM EDT 1.0 {tablet_as_needed} active HYDROcodone-Acetaminophen 10- 325 MG eCW1 ([facility]) 25 mg 05/02/2021 12:00:00 AM EDT tablet [...] MOUTH TWICE A DAY SOLD: 06/14/2021 [facility] Famotidine 20 MG Oral Tablet FAMOTIDINE 03/28/2021 [...] {tablet_as_needed} active HYDROcodone-Acetaminophen 10- 325 MG eCW1 ([facility]) Acetaminophen 325 MG / Hydrocodone Caryl trate 10 MG Oral Tablet HYDROcodone- Acetaminophen 10-325 MG HYDROcodone-Acetaminophen 10-325 MG 03/09/2021 12:00:0 0 AM EDT 1.0 {tablet_as_needed} suspended HYDROcodone-Acetaminophen 10-325 MG eCW1 ([facility]) Acetaminophen 325 MG / Hydrocodone Caryl trate 10 MG Oral Tablet HYDROcodone- Acetaminophen 10-325 MG HYDROcodone-Acetaminophen 10-325 MG 03/09/2021 12:00:0 0 AM EDT 1.0 {tablet_as_needed} suspended HYDROcodone-Acetaminophen 10-325 MG eCW1 ([facility]) Acetaminophen 325 MG / Hydrocodone Caryl trate 10 MG Oral Tablet HYDROcodone- Acetaminophen 10-325 MG HYDROcodone-Acetaminophen 10-325 MG 03/09/2021 12:00:0 0 AM EDT 1.0 {tablet_as_needed} suspended HYDROcodone-Acetaminophen 10-325 MG eCW1 ([facility]) Acetaminophen 325 MG / Hydrocodone Caryl trate 10 MG Oral Tablet HYDROcodone- Acetaminophen 10-325 MG HYDROcodone-Acetaminophen 10-325 MG 03/09/2021 12:00:0 0 AM EDT 1.0 {tablet_as_needed} suspended HYDROcodone-Acetaminophen 10-325 MG eCW1 ([facility]) Acetaminophen 325 MG / Hydrocodone Caryl trate 10 MG Oral Tablet HYDROcodone- Acetaminophen 10-325 MG HYDROcodone-Acetaminophen 10-325 MG 03/09/2021 12:00:0 0 AM EDT 1.0 {tablet_as_needed} active HYDROcodone-Acetaminophen 10- 325 MG eCW1 ([facility]) Acetaminophen 325 MG / Hydrocodone Carly trate 10 MG Oral Tablet HYDROcodone- Acetaminophen 10-325 MG HYDROcodone-Acetaminophen 10-325 MG 03/09/2021 12:00:0 0 AM EDT 1.0 {tablet_as_needed} suspended HYDROcodone-Acetaminophen 10-325 MG eCW1 ([facility]) Acetaminophen 325 MG / Hydrocodone Caryl trate 10 MG Oral Tablet HYDROcodone- Acetaminophen 10-325 MG HYDROcodone-Acetaminophen 10-325 MG 03/09/2021 12:00:0 0 AM EDT 1.0 {tablet_as_needed} suspended HYDROcodone-Acetaminophen 10-325 MG eCW1 ([facility]) Acetaminophen 325 MG / Hydrocodone Bitartrate 10 [...] 1.0 {tablet_as_needed} suspended HYDROcodone-Acetaminophen 10-325 MG eCW1 ([facility]) 30 mg 03/09/2021 12:00:00 AM EDT capsule,delayed release (DR/EC) 90 TAKE ONE CAPSULE BY MOUTH EVERY MORNING. MAXIMUM DAILY DOSE = 1CAPSULE TAKE ONE CAPSULE BY MOUTH EVERY MORNING. MAXIMUM DAILY DOSE = 1CAPSULE SOLD: 03/09/2021 [facility] Metronidazole 500 MG Oral Tablet metroNIDAZOLE 500 MG metroN IDAZOLE 500 MG 02/10/2021 12:00:00 AM EDT 1.0 {tablet} active metroNIDAZOLE 500 MG eCW1 ([facility]) Metronidazole 500 MG Oral Tablet Metronidazole 500 MG 2020 12:00:00 AM EDT 1.0 {tablet} active Metronidazo le 500 MG eCW1 ([facility]) Metronidazole 500 MG Oral Tablet metroNIDAZOLE 500 MG metroN IDAZOLE 500 MG 02/10/2021 12:00:00 AM EDT 1.0 {tablet} suspende d metroNIDAZOLE 500 MG eCW1 ([facility]) Metronidazole 500 MG Oral Tablet Metronidazole 500 MG 2020 12:00:00 AM EDT 1.0 {tablet} active Metronidazo le 500 MG eCW1 ([facility]) Metronidazole 500 MG Oral Tablet METRONIDAZOLE 02/10/2021 12:0 0:00 AM EDT tablet 30 TAKE ONE TABLET BY MOUTH THREE T IMES A DAY TAKE ONE TABLET BY MOUTH THREE TIMES A DAY SOLD: 02/10/2021 [facility] Metronidazole 500 MG Oral Tablet metroNIDAZOLE 500 MG metroN IDAZOLE 500 MG 02/10/2021 12:00:00 AM EDT 1.0 {tablet} suspende d metroNIDAZOLE 500 MG eCW1 ([facility]) Metronidazole 500 MG Oral Tablet metroNIDAZOLE 500 MG metroN IDAZOLE 500 MG 02/10/2021 12:00:00 AM EDT 1.0 {tablet} active metroNIDAZOLE 500 MG eCW1 ([facility]) Metronidazole 500 MG Oral Tablet metroNIDAZOLE 500 MG metroN IDAZOLE 500 MG 02/10/2021 12:00:00 AM EDT 1.0 {tablet} suspende d metroNIDAZOLE 500 MG eCW1 ([facility]) Metronidazole 500 MG Oral Tablet metroNIDAZOLE 500 MG metroN IDAZOLE 500 MG 02/10/2021 12:00:00 AM EDT 1.0 {tablet} suspende d metroNIDAZOLE 500 MG eCW1 ([facility]) Metronidazole 500 MG Oral Tablet metroNIDAZOLE 500 MG metroN IDAZOLE 500 MG 02/10/2021 12:00:00 AM EDT 1.0 {tablet} suspende d metroNIDAZOLE 500 MG eCW1 ([facility]) Metronidazole 500 MG Oral Tablet metroNIDAZOLE 500 MG metroN IDAZOLE 500 MG 02/10/2021 12:00:00 AM EDT 1.0 {tablet} active metroNIDAZOLE 500 MG eCW1 ([facility]) Metronidazole 500 MG Oral Tablet metroNIDAZOLE 500 MG metroN IDAZOLE 500 MG 02/10/2021 12:00:00 AM EDT 1.0 {tablet} suspende d metroNIDAZOLE 500 MG eCW1 ([facility]) Metronidazole 500 MG Oral Tablet metroNIDAZOLE 500 MG metroN IDAZOLE 500 MG 02/10/2021 12:00:00 AM EDT 1.0 {tablet} active metroNIDAZOLE 500 MG eCW1 ([facility]) Metronidazole 500 MG Oral Tablet metroNIDAZOLE 500 MG metroN IDAZOLE 500 MG 02/10/2021 12:00:00 AM EDT 1.0 {tablet} active metroNIDAZOLE 500 MG eCW1 ([facility]) Metronidazole 500 MG Oral Tablet metroNIDAZOLE 500 MG metroN IDAZOLE 500 MG 02/10/2021 12:00:00 AM EDT 1.0 {tablet} suspende d metroNIDAZOLE 500 MG eCW1 ([facility]) Metronidazole 500 MG Oral Tablet metroNIDAZOLE 500 MG metroN IDAZOLE 500 MG 02/10/2021 12:00:00 AM EDT 1.0 {tablet} active metroNIDAZOLE 500 MG eCW1 ([facility]) Metronidazole 500 MG Oral Tablet metroNIDAZOLE 500 MG metroN IDAZOLE 500 MG 02/10/2021 12:00:00 AM EDT 1.0 {tablet} suspende d metroNIDAZOLE 500 MG eCW1 ([facility]) Metronidazole 500 MG Oral Tablet metroNIDAZOLE 500 MG metroN IDAZOLE 500 MG 02/10/2021 12:00:00 AM EDT 1.0 {tablet} active metroNIDAZOLE 500 MG eCW1 ([facility]) Metronidazole 500 MG Oral Tablet Metronidazole 500 MG 2020 12:00:00 AM EDT 1.0 {tablet} active Metronidazo le 500 MG eCW1 ([facility]) Metronidazole 500 MG Oral Tablet metroNIDAZOLE 500 MG metroN IDAZOLE 500 MG 02/10/2021 12:00:00 AM EDT 1.0 {tablet} active metroNIDAZOLE 500 MG eCW1 ([facility]) Metronidazole 500 MG Oral Tablet metroNIDAZOLE 500 MG metroN IDAZOLE 500 MG 02/10/2021 12:00:00 AM EDT 1.0 {tablet} active metroNIDAZOLE 500 MG eCW1 ([facility]) Metronidazole 500 MG Oral Tablet Metronidazole 500 MG 2020 12:00:00 AM EDT 1.0 {tablet} active Metronidazo le 500 MG eCW1 ([facility]) Metronidazole 500 MG Oral Tablet metroNIDAZOLE 500 MG metroN IDAZOLE 500 MG 02/10/2021 12:00:00 AM EDT 1.0 {tablet} active metroNIDAZOLE 500 MG eCW1 ([facility]) Metronidazole 500 MG Oral Tablet metroNIDAZOLE 500 MG metroN IDAZOLE 500 MG 02/10/2021 12:00:00 AM EDT 1.0 {tablet} active metroNIDAZOLE 500 MG eCW1 ([facility]) Metronidazole 500 MG Oral Tablet metroNIDAZOLE 500 MG metroN IDAZOLE 500 MG 02/10/2021 12:00:00 AM EDT 1.0 {tablet} active metroNIDAZOLE 500 MG eCW1 ([facility]) Metronidazole 500 MG Oral Tablet metroNIDAZOLE 500 MG metroN IDAZOLE 500 MG 02/10/2021 12:00:00 AM EDT 1.0 {tablet} suspende d metroNIDAZOLE 500 MG eCW1 ([facility]) Metronidazole 500 MG Oral Tablet metroNIDAZOLE 500 MG metroN IDAZOLE 500 MG 02/10/2021 12:00:00 AM EDT 1.0 {tablet} suspende d metroNIDAZOLE 500 MG eCW1 ([facility]) 30 mg 02/07/2021 12:00:00 AM EDT capsule,delayed release (DR/EC) 30 TAKE ONE CAPSULE BY MOUTH EVERY DAY TAKE ONE CAPSULE BY MOUTH EVERY DAY SOLD: 02/09/2021 [facility] duloxetine 30 MG Delayed Release Oral Capsule Duloxetine HCL 02/05/2021 12:00:00 AM EDT ORAL active MEDENT ([facility]) 10 mEq 01/26/2021 12:00:00 AM EDT tablet,ER particles/cry stals 90 TAKE 1 TABLET BY MOUTH ONCE DAILY WITH FOOD TAKE 1 TABLET BY MOUTH ONCE DAILY WITH F OOD SOLD: 01/27/2021 [facility] 10 mEq 01/26/2021 12:00:00 AM [...] {tablet_as_needed} active Hydrocodone-Acetaminophen 10- 325 MG eCW1 ([facility]) 10-325 mg 12/30/2020 12:00:00 AM EDT tablet [...] {tablet_as_needed} active Hydrocodone-Acetaminophen 10- 325 MG eCW1 ([facility]) Acetaminophen 325 MG / Hydrocodone Caryl trate 10 MG Oral Tablet Hydrocodone- Acetaminophen 10-325 MG Hydrocodone-Acetaminophen 10-325 MG 12/30/2020 12:00:0 0 AM EDT 1.0 {tablet_as_needed} active Hydrocodone-Acetaminophen 10- 325 MG eCW1 ([facility]) Acetaminophen 325 MG / Hydrocodone Caryl trate 10 MG Oral Tablet Hydrocodone- Acetaminophen 10-325 MG Hydrocodone-Acetaminophen 10-325 MG 12/30/2020 12:00:0 0 AM EDT 1.0 {tablet_as_needed} active Hydrocodone-Acetaminophen 10- 325 MG eCW1 ([facility]) Acetaminophen 325 MG / Hydrocodone Caryl trate 10 MG Oral Tablet Hydrocodone- Acetaminophen 10-325 MG Hydrocodone-Acetaminophen 10-325 MG 12/30/2020 12:00:0 0 AM EDT 1.0 {tablet_as_needed} active Hydrocodone-Acetaminophen 10- 325 MG eCW1 ([facility]) Acetaminophen 325 MG / Hydrocodone Caryl trate 10 MG Oral Tablet Hydrocodone- Acetaminophen 10-325 MG Hydrocodone-Acetaminophen 10-325 MG 12/30/2020 12:00:0 0 AM EDT 1.0 {tablet_as_needed} active Hydrocodone-Acetaminophen 10- 325 MG eCW1 ([facility]) Acetaminophen 325 MG / Hydrocodone Caryl trate 10 MG Oral Tablet Hydrocodone- Acetaminophen 10-325 MG Hydrocodone-Acetaminophen 10-325 MG 12/30/2020 12:00:0 0 AM EDT 1.0 {tablet_as_needed} active Hydrocodone-Acetaminophen 10- 325 MG eCW1 ([facility]) Acetaminophen 325 MG / Hydrocodone Caryl trate 10 MG Oral Tablet HYDROcodone- Acetaminophen 10-325 MG HYDROcodone-Acetaminophen 10-325 MG 12/30/2020 12:00:0 0 AM EDT 1.0 {tablet_as_needed} active HYDROcodone-Acetaminophen 10- 325 MG eCW1 ([facility]) Acetaminophen 325 MG / Hydrocodone Caryl trate 10 MG Oral Tablet Hydrocodone- Acetaminophen 10-325 MG Hydrocodone-Acetaminophen 10-325 MG 12/30/2020 12:00:0 0 AM EDT 1.0 {tablet_as_needed} active Hydrocodone-Acetaminophen 10- 325 MG eCW1 ([facility]) Acetaminophen 325 MG / Hydrocodone Caryl trate 10 MG Oral Tablet Hydrocodone- Acetaminophen 10-325 MG Hydrocodone-Acetaminophen 10-325 MG 12/30/2020 12:00:0 0 AM EDT 1.0 {tablet_as_needed} active Hydrocodone-Acetaminophen 10- 325 MG eCW1 ([facility]) 150 mg 12/29/2020 12:00:00 AM EDT capsule 174 TAKE 1 CAPSULE BY MOUTH TWO TIMES A DAY MAXIMUM DAILY DOSE = 2 TAKE 1 CAPSULE BY MOUTH TWO TIMES A DAY MAXIMUM DAILY DOSE = 2 SOLD: 12/30/2020 [facility] 150 mg 12/29/2020 12:00:00 AM [...] ONCE A DAY SOLD: 12/17/2020 [facility] Metronidazole 500 MG Oral Tablet METRONIDAZOLE 12/15/2020 [...] BY MOUTH EVERY DAY SOLD: 11/22/2020 [facility] Citalopram 20 MG Oral Tablet CITALOPRAM [...] {tablet_as_needed} active Hydrocodone-Acetaminophen 10- 325 MG eCW1 ([facility]) Acetaminophen 325 MG / Hydrocodone Caryl trate 10 MG Oral Tablet Hydrocodone- Acetaminophen 10-325 MG Hydrocodone-Acetaminophen 10-325 MG 10/27/2020 12:00:0 0 AM EST 1.0 {tablet_as_needed} active Hydrocodone-Acetaminophen 10- 325 MG eCW1 ([facility]) Acetaminophen 325 MG / Hydrocodone Caryl trate 10 MG Oral Tablet Hydrocodone- Acetaminophen 10-325 MG Hydrocodone-Acetaminophen 10-325 MG 10/27/2020 12:00:0 0 AM EST 1.0 {tablet_as_needed} active Hydrocodone-Acetaminophen 10- 325 MG eCW1 ([facility]) Acetaminophen 325 MG / Hydrocodone Caryl trate 10 MG Oral Tablet Hydrocodone- Acetaminophen 10-325 MG Hydrocodone-Acetaminophen 10-325 MG 10/27/2020 12:00:0 0 AM EST 1.0 {tablet_as_needed} active Hydrocodone-Acetaminophen 10- 325 MG eCW1 ([facility]) Acetaminophen 325 MG / Hydrocodone Caryl trate 10 MG Oral Tablet Hydrocodone- Acetaminophen 10-325 MG Hydrocodone-Acetaminophen 10-325 MG 10/27/2020 12:00:0 0 AM EST 1.0 {tablet_as_needed} active Hydrocodone-Acetaminophen 10- 325 MG eCW1 ([facility]) Acetaminophen 325 MG / Hydrocodone Caryl trate 10 MG Oral Tablet Hydrocodone- Acetaminophen 10-325 MG Hydrocodone-Acetaminophen 10-325 MG 10/27/2020 12:00:0 0 AM EST 1.0 {tablet_as_needed} active Hydrocodone-Acetaminophen 10- 325 MG eCW1 ([facility]) 10-325 mg 10/27/2020 12:00:00 AM EST tablet [...] 1.0 {tablet} active Lisinopril 5 MG eCW1 ([facility]) Lisinopril 5 MG Oral Tablet Lisinopril 5 MG 09/29/2020 12:00:00 AM EST 1.0 {tablet} active Lisinopril 5 MG eCW1 ([facility]) Lisinopril 5 MG Oral Tablet Lisinopril 5 MG 09/29/2020 12:00:00 AM EST 1.0 {tablet} active Lisinopril 5 MG eCW1 ([facility]) Lisinopril 5 MG Oral Tablet Lisinopril 5 MG 09/29/2020 12:00:00 AM EST 1.0 {tablet} active Lisinopril 5 MG eCW1 ([facility]) Lisinopril 5 MG Oral Tablet Lisinopril 5 MG 09/29/2020 12:00:00 AM EST 1.0 {tablet} active Lisinopril 5 MG eCW1 ([facility]) Lisinopril 5 MG Oral Tablet Lisinopril 5 MG 09/29/2020 12:00:00 AM EST 1.0 {tablet} active Lisinopril 5 MG eCW1 ([facility]) Lisinopril 5 MG Oral Tablet Lisinopril 5 MG 09/29/2020 12:00:00 AM EST 1.0 {tablet} active Lisinopril 5 MG eCW1 ([facility]) Lisinopril 5 MG Oral Tablet Lisinopril 5 MG 09/29/2020 12:00:00 AM EST 1.0 {tablet} active Lisinopril 5 MG eCW1 ([facility]) Lisinopril 5 MG Oral Tablet Lisinopril 5 MG 09/29/2020 12:00:00 AM EST 1.0 {tablet} active Lisinopril 5 MG eCW1 ([facility]) 5 mg 09/29/2020 12:00:00 AM EST tablet 90 TAKE ONE TABLET BY MOUTH AT BEDTIME TAKE ONE TABLET BY MOUTH AT BEDTIME SOLD: 01/09/2021 [facility] Lisinopril 5 MG Oral Tablet Lisinopril 5 MG 09/29/2020 12:00:00 AM EST 1.0 {tablet} active Lisinopril 5 MG eCW1 ([facility]) Lisinopril 5 MG Oral Tablet Lisinopril 5 MG 09/29/2020 12:00:00 AM EST 1.0 {tablet} active Lisinopril 5 MG eCW1 ([facility]) Lisinopril 5 MG Oral Tablet Lisinopril 5 MG 09/29/2020 12:00:00 AM EST 1.0 {tablet} active Lisinopril 5 MG eCW1 ([facility]) Lisinopril 5 MG Oral Tablet Lisinopril 5 MG 09/29/2020 12:00:00 AM EST 1.0 {tablet} active Lisinopril 5 MG eCW1 ([facility]) Lisinopril 5 MG Oral Tablet Lisinopril 5 MG 09/29/2020 12:00:00 AM EST 1.0 {tablet} active Lisinopril 5 MG eCW1 ([facility]) Lisinopril 5 MG Oral Tablet lisinopril (PRINIVIL,ZESTR IL) 5 MG tablet lisinopril (PRINIVIL,ZESTRIL) 5 MG tablet 09/29/2020 12:00:00 AM EST 5 mg Or al active Take [address] [facility] Lisinopril 5 MG Oral Tablet Lisinopril 5 MG 09/29/2020 12:00:00 AM EST 1.0 {tablet} active Lisinopril 5 MG eCW1 ([facility]) Lisinopril 5 MG Oral Tablet Lisinopril 5 MG 09/29/2020 12:00:00 AM EST 1.0 {tablet} active Lisinopril 5 MG eCW1 ([facility]) Lisinopril 5 MG Oral Tablet Lisinopril 5 MG 09/29/2020 12:00:00 AM EST 1.0 {tablet} active Lisinopril 5 MG eCW1 ([facility]) Lisinopril 5 MG Oral Tablet Lisinopril 5 MG 09/29/2020 12:00:00 AM EST 1.0 {tablet} active Lisinopril 5 MG eCW1 ([facility]) Lisinopril 5 MG Oral Tablet Lisinopril 5 MG 09/29/2020 12:00:00 AM EST 1.0 {tablet} active Lisinopril 5 MG eCW1 ([facility]) Lisinopril 5 MG Oral Tablet Lisinopril 5 MG 09/29/2020 12:00:00 AM EST 1.0 {tablet} active Lisinopril 5 MG eCW1 ([facility]) Lisinopril 5 MG Oral Tablet Lisinopril 5 MG 09/29/2020 12:00:00 AM EST 1.0 {tablet} active Lisinopril 5 MG eCW1 ([facility]) 5 mg 09/29/2020 12:00:00 AM EST tablet 90 TAKE ONE TABLET BY MOUTH AT BEDTIME TAKE ONE TABLET BY MOUTH AT BEDTIME SOLD: 10/02/2020 [facility] Lisinopril 5 MG Oral Tablet Lisinopril 5 MG 09/29/2020 12:00:00 AM EST 1.0 {tablet} active Lisinopril 5 MG eCW1 ([facility]) Lisinopril 5 MG Oral Tablet Lisinopril 5 MG 09/29/2020 12:00:00 AM EST 1.0 {tablet} active Lisinopril 5 MG eCW1 ([facility]) Lisinopril 5 MG Oral Tablet Lisinopril 5 MG 09/29/2020 12:00:00 AM EST 1.0 {tablet} active Lisinopril 5 MG eCW1 ([facility]) Lisinopril 5 MG Oral Tablet Lisinopril 5 MG 09/29/2020 12:00:00 AM EST 1.0 {tablet} active Lisinopril 5 MG eCW1 ([facility]) Lisinopril 5 MG Oral Tablet Lisinopril 5 MG 09/29/2020 12:00:00 AM EST 1.0 {tablet} active Lisinopril 5 MG eCW1 ([facility]) Lisinopril 5 MG Oral Tablet Lisinopril 5 MG 09/29/2020 12:00:00 AM EST 1.0 {tablet} active Lisinopril 5 MG eCW1 ([facility]) Lisinopril 5 MG Oral Tablet Lisinopril 5 MG 09/29/2020 12:00:00 AM EST 1.0 {tablet} active Lisinopril 5 MG eCW1 ([facility]) Lisinopril 5 MG Oral Tablet Lisinopril 5 MG 09/29/2020 12:00:00 AM EST 1.0 {tablet} active Lisinopril 5 MG eCW1 ([facility]) Lisinopril 5 MG Oral Tablet Lisinopril 5 MG 09/29/2020 12:00:00 AM EST 1.0 {tablet} active Lisinopril 5 MG eCW1 ([facility]) Lisinopril 5 MG Oral Tablet Lisinopril 5 MG 09/29/2020 12:00:00 AM EST 1.0 {tablet} active Lisinopril 5 MG eCW1 ([facility]) Lisinopril 5 MG Oral Tablet Lisinopril 5 MG 09/29/2020 12:00:00 AM EST 1.0 {tablet} active Lisinopril 5 MG eCW1 ([facility]) Lisinopril 5 MG Oral Tablet Lisinopril 5 MG 09/29/2020 12:00:00 AM EST 1.0 {tablet} active Lisinopril 5 MG eCW1 ([facility]) Lisinopril 5 MG Oral Tablet Lisinopril 5 MG 09/29/2020 12:00:00 AM EST 1.0 {tablet} active Lisinopril 5 MG eCW1 ([facility]) Lisinopril 5 MG Oral Tablet Lisinopril 5 MG 09/29/2020 12:00:00 AM EST 1.0 {tablet} active Lisinopril 5 MG eCW1 ([facility]) Lisinopril 5 MG Oral Tablet Lisinopril 5 MG 09/29/2020 12:00:00 AM EST 1.0 {tablet} active Lisinopril 5 MG eCW1 ([facility]) Lisinopril 5 MG Oral Tablet Lisinopril 5 MG 09/29/2020 12:00:00 AM EST 1.0 {tablet} active Lisinopril 5 MG eCW1 ([facility]) Lisinopril 5 MG Oral Tablet Lisinopril 5 MG 09/29/2020 12:00:00 AM EST 1.0 {tablet} active Lisinopril 5 MG eCW1 ([facility]) Lisinopril 5 MG Oral Tablet Lisinopril 5 MG 09/29/2020 12:00:00 AM EST 1.0 {tablet} active Lisinopril 5 MG eCW1 ([facility]) 5 mg 09/29/2020 12:00:00 AM EST tablet 90 TAKE ONE TABLET BY MOUTH AT BEDTIME TAKE ONE TABLET BY MOUTH AT BEDTIME SOLD: 05/04/2021 [facility] Lisinopril 5 MG Oral Tablet Lisinopril 5 MG 09/29/2020 12:00:00 AM EST 1.0 {tablet} active Lisinopril 5 MG eCW1 ([facility]) Amlodipine 5 MG Oral Tablet amLODIPine (NORVASC) 5 MG tablet amLODIPine (NORVASC) 5 MG tablet 09/17/2020 12:00:00 AM EST 5 mg Oral aborted Take 5 mg by mouth daily [facility] 5 mg 09/17/2020 12:00:00 AM EST tablet [...] DOSE = 1 TABLET SOLD: 09/03/2020 [facility] Atenolol 50 MG Oral Tablet ATENOLOL 09/02/2020 12:00:00 AM EST tablet 30 TAKE ONE TABLET BY MOUTH EVERY DAY TAKE ONE TABLET BY MOUTH EVERY DAY SOLD: 09/03/2020 [facility] 25 mg 09/02/2020 12:00:00 AM EST tablet 90 TAKE 1/2 TABLET BY MOUTH TWO TIMES A DAY WITH FOOD TAKE 1/2 TABLET BY MOUTH TWO TIMES A DAY WITH FOOD ENRICO [facility] 25 mg 09/02/2020 12:00:00 AM [...] tablet (50 mg total) by mouth daily [facility] 25 mg 08/19/2020 12:00:00 AM EST tablet 90 TAKE ONE TABLET BY MOUTH EVERY DAY IN THE MORNING WITH FOOD TAKE ONE TABLET BY MOUTH EVERY DAY IN TH E MORNING WITH FOOD SOLD: 11/29/2020 [facility] 25 mg 08/19/2020 12:00:00 AM EST tablet 90 TAKE ONE TABLET BY MOUTH EVERY DAY IN THE MORNING WITH FOOD TAKE ONE TABLET BY MOUTH EVERY DAY IN TH E MORNING WITH FOOD SOLD: 08/21/2020 [facility] 5 mg 07/28/2020 12:00:00 AM EST tablet 30 TAKE ONE TABLET BY MOUTH EVERY DAY TAKE ONE TABLET BY MOUTH EVERY DAY SOLD: 08/03/2020 [facility] Lisinopril 5 MG Oral Tablet lisinopril (PRINIVIL,ZESTR IL) 5 MG tablet lisinopril (PRINIVIL,ZESTRIL) 5 MG tablet 07/28/2020 12:00:00 AM EST 5 mg Or al active Take 1 tablet (5 mg total) by mo uth daily [facility] 60 mg 07/28/2020 12:00:00 AM EST tablet extended release 24 hr 30 TAKE ONE TABLET BY MOUTH EVERY DAY TAKE ONE TABLET BY MOUTH EVERY DAY SOLD: 08/03/2020 [facility] Melatonin 3 MG Oral Tablet melatonin tablet 3 mg melatonin t ablet 3 mg 07/27/2020 11:00:00 PM EST 3 mg Oral completed 3 mg, Oral, Once, Mon07/27/20 at 2300, For [address] [facility] Medication administered onsite sodium chloride 0.9% (NS) infusion [id number] 07/27/2020 03:00:00 P M EST Intravenous completed at 100 mL/hr, Intravenous, Continuous, Starting Mon07/27/20 at 1500, For 5 hours, Post-op [facility] Medication administered onsite Nitroglycerin 0.4 MG Sublingual Tablet n itroglycerin (NITROSTAT) SL tablet 0.4 mg nitroglycerin (NITROSTAT) SL tablet 0.4 mg 07/27/2020 02:25:50 P M EST 0.4 mg Sublingual active 0.4 mg, S ublingual, Every 5 min PRN, chest pain, Starting Mon07/27/20 at 1425, Post-op
May administer every 5 minutes for 3 doses and call cardio lab MD.
[facility] Medication administered onsite clopidogrel 75 MG Oral Tablet clopidogrel (PLAVIX) tab let clopidogrel (PLAVIX) tablet 07/27/2020 12:04:55 PM EST active As needed, Starting Mon07/27/20 at 1204, Intra-Procedure [facility] Medication administered onsite 4 ML Verapamil hydrochloride 2.5 MG/ML Injection verap ninoska (ISOPTIN) injection verapamil (ISOPTIN) injection 07/27/2020 11:31:47 AM EST active As needed, Starting Mon07/27/20 at 1131, Intra-Procedure [facility] Medication administered onsite 1 ML heparin sodium, porcine 1000 UNT/ML Injection hep july (porcine) injection heparin (porcine) injection 07/27/2020 11:31:34 AM EST active As needed, Starting Mon07/27/20 at 1131, Intra-Procedure [facility] Medication administered onsite Lisinopril 5 MG Oral Tablet lisinopril (PRINIVIL,ZESTR IL) tablet 5 mg lisinopril (PRINIVIL,ZESTRIL) tablet 5 mg 07/27/2020 09:00:00 AM EST 5 mg Or al active 5 mg, Oral, Daily, First dose on Mon07/27/[address] [facility] Medication administered onsite Melatonin 3 MG Oral Tablet melatonin tablet 3 mg melatonin t ablet 3 mg 07/26/2020 11:00:00 PM EST 3 mg Oral completed 3 mg, Oral, Once, 07/26/20 at 2300, For [address] [facility] Medication administered onsite normal saline flush 0.9 % injection 3 mL [id number] 07/26/2020 02:00:00 PM EST 3 mL Intravenous active 3 mL , Intravenous, PROTOCOL, First dose on 07/26/20 at 1400, Pre-op
flush per protocol, D/C Main IV fluid if appropriate
[facility] Medication administered onsite normal saline flush 0.9 % injection 3 mL [id number] 07/26/2020 09:00:00 AM EST 3 mL Intravenous active 3 mL , Intravenous, Every 8 hours (scheduled), First dose on 07/26/20 at 0900, Pre-op
Rapid push positive pressure flushing shall be performed with a 10 cc normal saline syringe to check the PATENCY of a PIV site prior to any infusion therapy initiation unless resistance is met.
[facility] Medication administered onsite sodium chloride 0.9% (NS) infusion [id number] 07/26/2020 09:00:00 AM EST 100 mL/h Intravenous active at 100 m L/hr, 100 mL/hr, Intravenous, Continuous, Starting 07/26/20 at 0900, Pre-op
Start two hours prior to scheduled start time
[facility] Medication administered onsite normal saline flush 0.9 % injection 3 mL [id number] 07/26/2020 09:00:00 AM EST 3 mL Intravenous active 3 mL , Intravenous, Every 8 hours (scheduled), First dose on 07/26/20 at 0900, Pre-op
Rapid push positive pressure flushing shall be performed with a 10 cc normal saline syringe to check the PATENCY of a PIV site prior to any infusion therapy initiation unless resistance is met.
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 Medication administered onsite 24 HR Isosorbide Mononitrate 60 MG Exten ded Release Oral Tablet isosorbide mononitrate (IMDUR) 24 hr tablet 60 mg isosorbide mononitrate (IMDUR) 24 hr tablet 60 mg 07/26/2020 09:00:00 AM EST 60 mg Oral activ e 60 mg, Oral, Daily, First dose on 07/26/[address] [facility] Medication administered onsite Acetaminophen 325 MG Oral Tablet acetaminophen (TYLENO L) 325 MG tablet 650 mg acetaminophen (TYLENOL) 325 MG tablet 650 mg 07/26/2020 08:36:51 AM EST 650 mg Oral active 650 mg, Or al, Every 4 hours PRN, headaches, and non cardiac pain, Starting 07/26/20 at 0836, Pre-op
"Maximum dose of acetaminophen is 4,000 mg from all sources in 24 hours."
[facility] Medication administered onsite Amlodipine 5 MG Oral Tablet amLODIPine (NORVASC) 5 MG tablet amLODIPine (NORVASC) 5 MG tablet 07/26/2020 12:00:00 AM EDT 5 mg Oral active Take 1 tablet (5 mg total) by mouth daily [facility] 24 HR Isosorbide Mononitrate 60 MG Exten ded Release Oral Tablet isosorbide mononitrate (IMDUR) 60 MG 24 hr tablet isosorbide mononitrate (IMDUR) 60 MG 24 hr tablet 07/26/2020 12:00:00 AM EDT 60 mg Oral active Take 1 tablet (60 mg total) by mouth daily [facility] 24 HR Isosorbide Mononitrate 30 MG Exten ded Release Oral Tablet isosorbide mononitrate (IMDUR) 24 hr tablet 30 mg isosorbide mononitrate (IMDUR) 24 hr tablet 30 mg 07/25/2020 03:00:00 PM EDT 30 mg Oral abort ed 30 mg, Oral, Daily, First dose on 07/25/[address] [facility] Medication administered onsite Metoprolol Tartrate 25 MG Oral Tablet me toprolol tartrate (LOPRESSOR) tablet 12.5 mg metoprolol tartrate (LOPRESSOR) tablet 12.5 mg 10:00:00 AM EDT 12.5 mg Oral active 12.5 mg, Oral, 2 times daily, First dose on 07/25/[address] [facility] Medication administered onsite Metoprolol Tartrate 25 MG Oral Tablet me toprolol tartrate (LOPRESSOR) 25 MG tablet metoprolol tartrate (LOPRESSOR) 25 MG tablet 07/25/2020 12:0 0:00 AM EDT 12.5 mg Oral active Take 0.5 tablets (12.5 mg total) by mouth 2 (two) times a day [facility] Zolpidem tartrate 5 MG Oral Tablet zolpidem (AMBIEN) t ablet 2.5 mg zolpidem (AMBIEN) tablet 2.5 mg 07/24/2020 10:00:00 PM EDT 2.5 mg Oral completed 2.5 mg, Oral, Once, Mon07/24/20 at 2200, For 1 dose [facility] Medication administered onsite iodixanol (VISIPAQUE) 320 MG/ML injection [id number] 07/24/2020 04:51 :30 PM EDT active As needed, Starting Mon07/24/20 at 1651, Intra-Procedure [facility] Medication administered onsite lidocaine 1 % injection [id number] 07/24/2020 04:50:02 PM EDT active As needed, Starting Mon07/24/20 at 1650, Intra-Procedure [facility] Medication administered onsite Cefazolin 1000 MG Injection ceFAZolin (ANCEF) injectio n ceFAZolin (ANCEF) injection 07/24/2020 04:44:48 PM EDT active As needed, Starting Mon07/24/20 at 1644, Intra-Procedure [facility] Medication administered onsite fentaNYL Citrate (PF) (SUBLIMAZE) injection [id number] 07/24/2020 04:44:32 PM EDT active As neede d, Starting Mon07/24/20 at 1644, Intra-Procedure [facility] Medication administered onsite 2 ML Midazolam 1 MG/ML Injection midazolam (VERSED) in jection midazolam (VERSED) injection 07/24/2020 04:44:24 PM EDT active As needed, Starting Mon07/24/20 at 1644, Intra-Procedure [facility] Medication administered onsite Amlodipine 10 MG Oral Tablet amLODIPine (NORVASC) tabl et 10 mg amLODIPine (NORVASC) tablet 10 mg 07/24/2020 09:00:00 AM EDT 10 mg Oral aborted 10 mg, Oral, Daily, First dose on Mon07/24/[address] [facility] Medication administered onsite 60 ACTUAT formoterol fumarate 0.005 MG/A CTUAT / mometasone furoate 0.2 MG/ACTUAT Metered Dose Inhaler mometasone-formoterol (DULERA) 200-5 MCG/ACT inhaler 2 puff mometasone-formoterol (DULERA) 200-5 MCG/ACT inhaler 2 puff 07/24/2020 09:00:00 AM EDT 2 {puff} Inhalation active 2 pu ff, Inhalation, Daily, First dose on Mon07/24/[address] [facility] Medication administered onsite Chlorthalidone 25 MG Oral Tablet chlorthalidone (HYGRO TEN) tablet 25 mg chlorthalidone (HYGROTEN) tablet 25 mg 07/24/2020 09:00:00 AM EDT 2 5 mg Oral aborted 25 mg, Oral, Daily, First dose on Mon07/24/[address] [facility] Medication administered onsite Lisinopril 20 MG Oral Tablet lisinopril (PRINIVIL,ZEST RIL) tablet 20 mg lisinopril (PRINIVIL,ZESTRIL) tablet 20 mg 07/24/2020 09:00:00 AM EDT 20 mg Oral aborted 20 mg, Oral, Daily, First dose on Mon07/24/[address] [facility] Medication administered onsite Aspirin 81 MG Delayed Release Oral Tablet aspirin EC t ablet 81 mg aspirin EC tablet 81 mg 07/24/2020 09:00:00 AM EDT 81 mg Oral activ e 81 mg, Oral, Daily, First dose on Mon07/24/[address] [facility] Medication administered onsite clopidogrel 75 MG Oral Tablet clopidogrel (PLAVIX) tab let 75 mg clopidogrel (PLAVIX) tablet 75 mg 07/24/2020 09:00:00 AM EDT 75 mg Oral active 75 mg, Oral, Daily, First dose on Mon07/24/[address] [facility] Medication administered onsite Citalopram 20 MG Oral Tablet citalopram (CeleXA) table t 20 mg citalopram (CeleXA) tablet 20 mg 07/24/2020 09:00:00 AM EDT 20 mg Oral active 20 mg, Oral, Daily, First dose on Mon07/24/[address] [facility] Medication administered onsite Ipratropium [place] 0.2 MG/ML Inhalant S olution ipratropium (ATROVENT) 0.02 % nebulizer solution 0.5 mg ipratropium (ATROVENT) 0.02 % nebulizer solution 0.5 mg 07/24/2020 08:00:00 AM EDT 0.5 mg active 0.5 mg, Nebulization, 4 times daily, First dose on Mon07/24/[address] [facility] Medication administered onsite Influenza Vac Split Quad injection 0.5 mL [id number] 07/24/2020 0 5:00:00 AM EDT 0.5 mL Intramuscular completed 0.5 mL , Intramuscular, During hospitalization, Mon07/24/20 at 0500, For [address] [facility] Medication administered onsite Levetiracetam 500 MG Oral Tablet levETIRAcetam (KEPPRA ) tablet 500 mg levETIRAcetam (KEPPRA) tablet 500 mg 07/24/2020 01:00:00 AM EDT 500 m g Oral active 500 mg, Oral, 2 times daily, First dose on Mon07/24/[address] [facility] Medication administered onsite heparin (porcine) injection 5,000 Units [id number] 07/24/20 20 12:00:00 AM EDT 5000 U Subcutaneous active 5,000 Units , Subcutaneous, Every 12 hours (scheduled), First dose on Mon07/24/20 at 0000
If platelet count is less than 100,000 or hematocrit is less than 30, or if there is a 5 point decrease in hematocrit, do not give the dose and call physician/designee.
[facility] Medication administered onsite pregabalin 75 MG Oral Capsule pregabalin (LYRICA) caps ule 150 mg pregabalin (LYRICA) capsule 150 mg 07/23/2020 11:00:00 PM EDT 150 mg Oral active 150 mg, Oral, 2 times daily, First dose on [place] 07/23/20 at 2300, For [address] [facility] Medication administered onsite Famotidine 20 MG Oral Tablet famotidine (PEPCID) table t 20 mg famotidine (PEPCID) tablet 20 mg 07/23/2020 11:00:00 PM EDT 20 mg Oral active 20 mg, Oral, 2 times daily, First dose on [place] 07/23/[address] [facility] Medication administered onsite Zolpidem tartrate 5 MG Oral Tablet zolpidem (AMBIEN) t ablet 2.5 mg zolpidem (AMBIEN) tablet 2.5 mg 07/23/2020 10:19:39 PM EDT 2.5 mg Oral completed 2.5 mg, Oral, Nightly PRN, sleep, Starting Mon 0 at 2219, For [address] [facility] Medication administered onsite Nitroglycerin 0.4 MG Sublingual Tablet n itroglycerin (NITROSTAT) SL tablet 0.4 mg nitroglycerin (NITROSTAT) SL tablet 0.4 mg 07/23/2020 10:17:24 P M EDT 0.4 mg Sublingual aborted 0.4 mg, S ublingual, Every 5 min PRN, chest pain, Starting [place] 07/23/20 at 2217
May administer up to 3 doses per episode.
[facility] Medication administered onsite normal saline flush 0.9 % injection 3 mL [id number] 07/23/2020 10:00:00 PM EDT 3 mL Intravenous aborted 3 mL , Intravenous, Every 8 hours (scheduled), First dose on [place] 07/23/20 at 2200
Rapid push positive pressure flushing shall be performed with a 10 cc normal saline syringe to check the PATENCY of a PIV site prior to any infusion therapy initiation unless resistance is met.
[facility] Medication administered onsite normal saline flush 0.9 % injection 3 mL [id number] 07/23/2020 10:00:00 PM EDT 3 mL Intravenous aborted 3 mL , Intravenous, Every 8 hours (scheduled), First dose on [place] 07/23/20 at 2200
flush per protocol, D/C Main IV fluid if appropriate
[facility] Medication administered onsite ondansetron (ZOFRAN) injection 4 mg [id number] 07/23/2020 08:52:1 8 PM EDT 4 mg Intravenous active 4 mg, In travenous, Every 6 hours PRN, nausea, vomiting, Starting [place] 07/23/[address] [facility] Medication administered onsite Acetaminophen 325 MG Oral Tablet acetaminophen (TYLENO L) 325 MG tablet 650 mg acetaminophen (TYLENOL) 325 MG tablet 650 mg 07/23/2020 08:52:13 PM EDT 650 mg Oral aborted 650 mg, Or al, Every 8 hours PRN, mild pain (1-3), headaches, Starting [place] 07/23/20 at 2051
"Maximum dose of acetaminophen is 4,000 mg from all sources in [address] hours."
[facility] Medication administered onsite Oxybutynin chloride 5 MG Oral Tablet oxybutynin (DITRO MAN) tablet 5 mg oxybutynin (DITROPAN) tablet 5 mg 07/23/2020 09:00:00 AM EDT 5 mg Oral active 5 mg, Oral, 2 times daily, First dose on [place] 07/23/[address] [facility] Medication administered onsite 30 ACTUAT fluticasone furoate [...] DAILY DOSE = 2 CAPSULES SOLD: 06/18/2020 [facility] Metronidazole 500 MG Oral Tablet METRONIDAZOLE 06/16/2020 [...] MOUTH TWICE A DAY SOLD: 11/21/2020 [facility] Atenolol 50 MG Oral Tablet ATENOLOL 06/11/2020 [...] TABLET BY MOUTH EVERY DAY SOLD: 10/19/2020 [facility] Metronidazole 500 MG Oral Tablet METRONIDAZOLE 11/19/2019 [...] by mouth 2 (two) times a day [facility] POLYETHYLENE GLYCOL 3350 142 MG/ML Oral Solution polyethylene glycol (GLYCOLAX) packet polyethylene glycol (GLYCOLAX) packet 03/26/2019 12:00:00 AM EDT 17 g Oral aborted Take 17 g by mouth d aily [facility] LEVETIRACETAM ER PO Oral aborted Ta ke by mouth [facility] Amlodipine 10 MG Oral Tablet amLODIPine (NORVASC) 10 M G tablet amLODIPine (NORVASC) 10 MG tablet 10 mg Oral aborted T dileep 10 mg by mouth daily [facility] Metronidazole 500 MG Oral Tablet metroNIDAZOLE (FLAGYL ) 500 MG tablet metroNIDAZOLE (FLAGYL) 500 MG tablet 500 mg Oral a borted Take 500 mg by mouth 2 (two) times a day [facility] METOPROLOL TARTRATE PO Oral aborted Take by mouth [facility] Lisinopril 20 MG Oral Tablet lisinopril (PRINIVIL,ZEST RIL) 20 MG tablet lisinopril (PRINIVIL,ZESTRIL) 20 MG tablet 20 mg Oral aborted Take 20 mg by mouth daily [facility] Lisinopril 20 MG Oral Tablet lisinopril (PRINIVIL,ZEST RIL) 20 MG tablet lisinopril (PRINIVIL,ZESTRIL) 20 MG tablet 20 mg Oral aborted Take 20 mg by mouth daily [facility] Atenolol 50 MG Oral Tablet atenolol (TENORMIN) 50 MG t ablet atenolol (TENORMIN) 50 MG tablet 50 mg Oral aborted Take 50 mg by mouth daily [facility] Amlodipine 10 MG Oral Tablet amLODIPine (NORVASC) 10 M G tablet amLODIPine (NORVASC) 10 MG tablet 10 mg Oral aborted T dileep 10 mg by mouth daily [facility] 1 ML evolocumab 140 MG/ML Prefilled Syringe Evolocumab (REPATHA) 140 MG/ML SOSY Evolocumab (REPATHA) 140 MG/ML SOSY 140 mg Subcutaneous aborted Inject 140 mg under the skin every 14 (fourteen) days [facility] Insurance Providers Payer name Policy type / Coverage type Policy ID Covered libertarian ID Covered libertarian's relationship to najera Policy Najera Plan Information UHC UNITED MEDICARE DUAL G [id number] Self [id number] [facility] [id number] [place] Med[place] [id number] Self [id number] [place] [id number] Self [id number] [place] [id number] Self [id number] [place] [id number] Self [id number] [place] Med[place] [id number] Self [id number] [facility] DUAL COMPLET [id number] S [id number] [facility] [id number] SP [id number] [facility] DUAL COMPLET [id number] S [id number] [facility] Health Maintenance Organization (HMO) [id number] Self [id number] [facility] MEDICARE DUAL G [id number] Self [id number] [facility] MEDICARE [id number] Rebecca [id number] [facility] [id number] Self [id number] [facility] [id number] SP [id number] [facility] MEDICAID [id number] Rebecca [id number] [facility] MEDICARE [id number] xxxxxxxxx [id number] MEDICAID [id number] xxxxxxxx [id number] MEDICAID [id number] Rebecca [id number] MEDICAID [id number] Self [id number] MEDICAID [id number] EMEDNY [id number] SP [id number] [facility] ([facility]) Commercial [id number] Self [id number] [facility] ([facility]) Commercial [id number] Self [id number] [facility] DUAL COMPLET [id number] S [id number] MEDICAID [id number] MEDICAID [id number] [facility] DUAL COMPLET [id number] S [id number] [facility]NA MEDICAID MANAGED I [id number] Self [id number] ANSI-Medicare Part B [id number] [facility]-Medicare Part B [id number] [facility] [id number] ANSI-Medicare Part [id number] MEDICAID [id number] S [id number] [facility] MCRHMO [id number] SP [id number] [facility] DUAL COMPLET MCRADVANT [id number] S [id number] [facility] DUAL COMPLET MCR[place]ANT [id number] S [id number] [facility] MEDICAID [id number] SP [id number] Y [facility] MEDICAID PI PI MEDICAID [id number] SP [id number] [place] Primary [id number] Self [id number] [place]ICARE [place] [id number] S [id number] [facility] [facility] [id number] S [id number] [place] Primary [id number] Self [id number] MEDICAID [id number] S [id number] [place] Primary [id number] Self [id number] [place] Primary [id number] Self [id number] MEDICAID [id number] S [id number] [facility] PLAN [facility] [id number] SP [id number] [place] Primary [id number] Self [id number] MEDICARE [id number] SP [id number] [facility] MEDICARE MCRADVANT [id number] S [id number] [employer] MEDICARE COMPLETE - O/P [id number] 18 [id number] Medicare [place] Medicare Primary [id number] Self MEDICARE COMPLETE [id number] SP [id number] MEDICAID [id number] Retired [id number] [facility] MEDICARE [id number] Retired [id number] MEDICAID [id number] S [id number] [facility] O [id number] S [id number] Medicaid [place] Medigap Part B [id number] Self [id number] Problems, Conditions, and Diagnoses Code Display Name Description Problem Type Effective Dates Data Source(s) Z20.822 CONTACT WITH AND (SUSPECTED) EXPOSURE TO COVID-19 CONTACT WITH AND (SUSPECTED) EXPOSURE TO COVID-19 Diagnosis 05/20/2021 02:14:00 PM [facility] Z79.899 Other rn long term care (current) drug therapy O THER CARE HOME (CURRENT) DRUG THERAPY Diagnosis 05/20/2021 02:14:00 PM [facility] l 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 OF ANTITHROMBOTICS/ANTIPLA Diagnosis 05/20/2021 02:14:00 PM [facility] 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.82 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 (CU RRENT) USE OF ASPIRIN Diagnosis 05/20/2021 02:14:00 PM [facility] Z87.891 Personal history of nicotine dependence PERSONAL HISTORY OF NICOTINE DEPENDENCE Diagnosis 05/20/2021 02:14:00 PM [facility] J42 Unspecified chronic bronchitis UNSPECIFIED CHRONIC BRO NCHITIS Diagnosis 05/20/2021 02:14:00 PM [facility] I10 Essential (primary) hypertension ESSENTIAL (PRIMARY) H YPERTENSION Diagnosis 05/20/2021 02:14:00 PM EDT [facility] R51.9 HEADACHE, UNSPECIFIED HEADACHE, UNSPECIFIED Diagnosis 05/20/2021 02:14:00 PM T [facility] J43.9 Emphysema, unspecified EMPHYSEMA, UNSPECIFIED Diagnosi s 05/20/2021 02:14:00 PM [facility] R06.00 Dyspnea, unspecified DYSPNEA, UNSPECIFIED Diagnosis 05/20/2021 02:14:00 PM [facility] R00.1 Bradycardia, unspecified Bradycardia, unspecified Diag nosis 04/01/2021 12:59:[address] [facility] I27.20 Pulmonary hypertension, unspecified Pulmonary hy pertension, unspecified Diagnosis 04/01/2021 12:59:07 PM EDT [facility] I10 Essential (primary) hypertension Essential (primary) h ypertension Diagnosis 04/01/2021 12:59:[address] [facility] I34.2 Nonrheumatic mitral (valve) stenosis Nonrheumati c mitral (valve) stenosis Diagnosis 04/01/2021 12:59:07 PM EDT [facility] E78.2 Mixed hyperlipidemia Mixed hyperlipidemia Diagnosis 04/01/2021 12:59:[address] [facility] I25.10 Atherosclerotic heart diseas e of [place] coronary artery without angina pectoris Atherosclerotic heart disease of [place] Diagnosis 04/01/2021 12:59:[address] [facility] R20.2 Paresthesia of skin Paresthesia of skin Diagnosis 0 01/27/2021 11:30:16 AM [facility] M79.604 Pain in right leg Pain in right leg Diagnosis 01/27 11:30:16 AM [facility] M54.5 Low back pain Low back pain Diagnosis 01/27/2021 11:30:16 AM [facility] R00.2 Palpitations Palpitations Diagnosis 11/19/2020 02:49:[address] 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 OCCLUSION AND STENOSIS OF BILATERAL VERTEBRAL MONTY Diagnosis 10/02/2020 03:30:00 PM [facility] R42 Dizziness and giddiness DIZZINESS AND GIDDINESS Diagno sis 10/02/2020 03:30:00 PM [facility] I25.10 Atherosclerotic heart diseas e of [place] coronary artery without angina pectoris ATHSCL HEART DISEASE OF [place] CORONARY ARTERY W/O ANG PCTRS Diagnosis 10/02/2020 03:30:00 PM [facility] I70.8 Atherosclerosis of other arteries ATHEROSCLEROSI S OF OTHER ARTERIES Diagnosis 10/02/2020 03:30:00 PM [facility] Z95.0 Presence of cardiac pacemaker PRESENCE OF CARDIAC PACE MAKER Diagnosis 08/25/2020 06:47:00 PM [facility] Z95.1 Presence of aortocoronary bypass graft P RESENCE OF AORTOCORONARY BYPASS GRAFT Diagnosis 08/25/2020 06:47:00 PM [facility] Z95.5 Presence of coronary angioplasty implant and graft PRESENCE OF CORONARY ANGIOPLASTY IMPLANT AND GRAFT Diagnosis 08/25/2020 06:47:00 PM [facility] 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 R07.9 Chest pain, unspecified Chest pain, unspecified Diagno sis 07/23/2020 08:46:[address] 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 (CURRENT) USE OF ANTICOAGULANTS Diagnosis 07/23/2020 04:11:00 PM [facility] Z20.828 Contact with and (suspected) exposure to other viral communicable diseases CONTACT W AND EXPOSURE TO OTH VIRAL COMMUNICABLE D Diagnosis 07/23/2020 04:11:00 PM [facility] I25.2 Old myocardial infarction OLD MYOCARDIAL INFARCTION Di agnosis 07/23/2020 04:11:00 PM [facility] R07.89 Other chest pain OTHER CHEST PAIN Diagnosis 07/23/2020 04 :11:00 PM [facility] R07.9 Chest pain, unspecified CHEST PAIN, UNSPECIFIED Diagno sis 07/23/2020 04:11:00 PM [facility] Z78.0 Asymptomatic menopausal state ASYMPTOMATIC MENOPAUSAL STATE Diagnosis 05/21/2020 01:00:00 PM [facility] M85.89 Other specified disorders of bone densit y and structure, multiple sites OTH DISRD OF BONE DENSITY AND STRUCTURE, MULTIPLE SITES Diagnosis 05/21/2020 01:00:00 PM [facility] I10 [id number] Primary hypertension Problem 05/25/2021 12:0 0:00 AM EDT eCW1 ([facility]) G89.29 Chronic pain Other chronic pain Problem 04/07/2021 12:0 0:00 AM EDT eCW1 ([facility]) 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 Problem 01/07/2021 12:00:00 AM EDT eCW1 ([facility]) M05.79 [id number] Rheumatoid arthritis involving multiple sites with positive rheumatoid factor Problem 12/30/2020 12:00:00 AM EDT eCW1 ([facility]) I25.10 [id number] Arteriosclerotic cardiovascular disease ( ASCVD) Problem 09/29/2020 12:00:00 AM EST eCW1 ([facility]) Z95.0 [id number] Status post cardiac pacemaker procedure P roblem 09/29/2020 12:00:00 AM EST eCW1 ([facility]) 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 Pr oblem 07/30/2020 12:00:00 AM EST eCW1 ([facility]) Z95.5 [id number] S/P coronary artery stent placement Probl em 07/30/2020 12:00:00 AM EST eCW1 ([facility]) Z98.890 [id number] History of stent insertion of renal arter y Problem 07/30/2020 12:00:00 AM EST eCW1 ([facility]) J44.9 [id number] COPD (chronic obstru ctive pulmonary disease) case management patient Problem 07/30/2020 12:00:00 AM EST eCW1 ([facility]) Z87.19 [id number] History of diverticulitis Problem 07/30/2020 12:00:00 AM EST eCW1 ([facility]) Z99.81 [id number] Dependence on supplemental oxygen Problem 07/30/2020 12:00:00 AM EST eCW1 ([facility]) R00.1 Symptomatic bradycardia Symptomatic bradycardia [id number] 07/30/2020 12:00:[address] [facility] K57.90 Diverticulosis Diverticulosis [id number] 07/24/2020 12:00: [address] [facility] R56.9 Seizure Seizure [id number] 07/24/2020 12:00:[address] [facility] I51.7 Cardiomegaly Cardiomegaly [id number] 07/23/2020 12:00:[address] [facility] K21.9 Gastroesophageal reflux disease Gastroesophageal reflu x disease [id number] 07/23/2020 12:00:[address] [facility] I27.20 Pulmonary hypertension Pulmonary hypertension [id number] 07/23/2020 12:00:[address] [facility] G47.33 TODD (obstructive sleep apnea) TODD (obstructive sleep a pnea) [id number] 07/23/2020 12:00:[address] [facility] G62.9 Neuropathy Neuropathy [id number] 07/23/2020 12:00:[address] [facility] J44.9 COPD (chronic obstructive pulmonary dise ase) COPD (chronic obstructive pulmonary disease) [id number] 07/23/2020 12:00:[address] [facility] Z99.81 Supplemental oxygen dependent Supplemental oxygen depe ndent [id number] 07/23/2020 12:00:[address] [facility] 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 [id number] 07/23/2020 12:00:[address] [facility] I20.9 Angina pectoris Angina pectoris [id number] 07/23/2020 12:0 0:[address] [facility] Z98.890 History of stent insertion of renal monty ry History of stent insertion of renal artery [id number] 07/23/2020 12:00:[address] [facility] R00.1 Bradycardia Bradycardia [id number] 07/23/2020 12:00:[address] [facility] Surgeries/Procedures Procedure Description Date Indications Data Source(s) OFFICE OUTPATIENT VISIT 25 MINUTES 05/06/2021 12:00:00 AM EDT MEDYANG ([facility] ) Pain Procedure Log 04/08/2021 12:00:00 AM EDT eCW1 ([facility]) Medication: Stephens Tablet 5mg/325mg Orally (Hydrocodone/Aceta minophen) 03/25/2021 12:00:00 AM EDT eCW1 ([facility]) Unclassified drugs 03/25/2021 12:00:00 AM EDT eCW1 ([facility]) Completion of procedural visit when meets criteria 03/25/2021 12:00:00 AM EDT eCW1 ([facility]) Needle electromyography, each extremity, with related paraspinal areas, when performed, done with nerve conduction, amplitude and latency/velocity study; complete, five or more muscles studied, innervated by three or more nerves or four or more spinal levels (list separately in addition to the code for primary procedure). 02/01/2021 12:00:00 AM EDT MEDEN T ([facility], ) Needle electromyography, each extremity, with related paraspinal areas, when performed, done with nerve conduction, amplitude and latency/velocity study; complete, five or more muscles studied, innervated by three or more nerves or four or more spinal levels (list separately in addition to the code for primary procedure). 02/01/2021 12:00:00 AM EDT MEDEN T ([facility]) [address] Nerve conduction studies 13 or more studies NEW 201202/01/2021 12:00:00 AM EDT MEDENT ([facility]) OFFICE OUTPATIENT VISIT 25 MINUTES 01/19/2021 12:00:00 AM EDT MEDENT ([facility]) ECG ROUTINE ECG W/LEAST 12 LDS W/I&R <td>POCT AMB EKG</td><td>Routine</td><td>09/01/2020 2:11 PM EST</td><td> Coronary artery disease involving [place] heart without angina pectoris, unspecified vessel or lesion type</td><td> </td> 09/01/2020 07:11:00 PM EST Coronary artery disease involving [place] heart without angina pectoris, unspecified vessel or lesion type [facility] Coronary artery disease involving [place] heart without angina pectoris, unspecified vessel or lesion type BLOOD COUNT COMPLETE AUTOMATED <td>CBC</td><td>Routine </td><td>07/28/2020 5:43 AM EST</td><td></td><td> </td> 07/28/2020 10:43:[address] [facility] BASIC METABOLIC PANEL CALCIUM TOTAL <td>BASIC METABOLI C PANEL</td><td>Routine</td><td>07/28/2020 5:43 AM EST</td><td></td><td> </td> 07/28/2020 10:43:[address] [facility] ECG ROUTINE ECG W/LEAST 12 LDS TRCG ONLY W/O I&R <td>E CG 12- LEAD</td><td>Routine</td><td>07/28/2020 3:08 AM EST</td><td></td><td></td> 07/28/2020 08:08:09 AM EST [facility] CARDIAC CATHETERIZATION <td>CARDIAC CATHETERIZATION</td><td>Routine</td><td>07/27/2020 11:58 AM EST</td><td> Angina pectoris</td><td> </td> 07/27/2020 04:58:30 PM EST Angina pectoris [facility] Angina pectoris BLOOD COUNT COMPLETE AUTOMATED <td>CBC</td><td>Routine </td><td>07/27/2020 4:15 AM EST</td><td></td><td> </td> 07/27/2020 09:15:[address] [facility] BASIC METABOLIC PANEL CALCIUM TOTAL <td>BASIC METABOLI C PANEL</td><td>Routine</td><td>07/27/2020 4:15 AM EST</td><td></td><td> </td> 07/27/2020 09:15:[address] [facility] ECG ROUTINE ECG W/LEAST 12 LDS W/I&R <td>ECG 12- LEAD</td><td>Routine</td><td>07/27/2020 3:29 AM EST</td><td></td><td></td> 07/27/2020 08:29:33 AM EST [facility] THROMBOPLASTIN TIME PARTIAL PLASMA/WHOLE BLOOD <td>APTT</td><td>Routine</td><td>07/26/2020 10:35 AM EST</td><td></td><td> </td> 07/26/2020 03:35:[address] [facility] PROTHROMBIN TIME <td>PROTIME-INR</td><td>Rout ine</td><td>07/26/2020 10:35 AM EST</td><td></td><td> </td> 07/26/2020 03:35:[address] [facility] BLOOD COUNT COMPLETE AUTOMATED <td>CBC</td><td>Routine </td><td>07/26/2020 6:06 AM EST</td><td></td><td> </td> 07/26/2020 11:06:[address] [facility] BASIC METABOLIC PANEL CALCIUM TOTAL <td>BASIC METABOLI C PANEL</td><td>Routine</td><td>07/26/2020 6:06 AM EST</td><td></td><td> </td> 07/26/2020 11:06:[address] [facility] ECG ROUTINE ECG W/LEAST 12 LDS TRCG ONLY W/O I&R <td>E CG 12- LEAD</td><td>Routine</td><td>07/26/2020 4:44 AM EST</td><td></td><td></td> 07/26/2020 09:44:46 AM EST [facility] TROPONIN QUANTITATIVE <td>TROPONIN I</td><td>STAT< /td><td>07/25/2020 3:22 PM EDT</td><td></td><td> </td> 07/25/2020 07:22:[address] [facility] ECG ROUTINE ECG W/LEAST 12 LDS TRCG ONLY W/O I&R <td>E CG 12- LEAD</td><td>Routine</td><td>07/25/2020 12:48 PM EDT</td><td></td><td></td> 07/25/2020 04:48:59 PM EDT [facility] ECG ROUTINE ECG W/LEAST 12 LDS TRCG ONLY W/O I&R <td>E CG 12- LEAD</td><td>Routine</td><td>07/25/2020 9:04 AM EDT</td><td></td><td></td> 07/25/2020 01:04:54 PM EDT [facility] BLOOD COUNT COMPLETE AUTOMATED <td>CBC</td><td>Timed</ td><td>07/25/2020 7:11 AM EDT</td><td></td><td> </td> 07/25/2020 11:11:[address] [facility] BASIC METABOLIC PANEL CALCIUM TOTAL <td>BASIC METABOLI C PANEL</td><td>Timed</td><td>07/25/2020 7:11 AM EDT</td><td></td><td> </td> 07/25/2020 11:11:[address] [facility] XR CHEST PORTABLE <td>XR CHEST PORTABLE</td><t d>STAT</td><td>07/24/2020 7:08 PM EDT</td><td></td><td> </td> 07/24/2020 11:08:[address] [facility] EP STUDY <td>EP STUDY</td><td>Routine </td><td>07/24/2020 5:55 PM EDT</td><td> Bradycardia</td><td> </td> 07/24/2020 09:55:[address] [facility] Bradycardia BLOOD COUNT COMPLETE AUTOMATED <td>CBC</td><td>Timed</ td><td>07/24/2020 4:12 AM EDT</td><td></td><td> </td> 07/24/2020 08:12:[address] [facility] BASIC METABOLIC PANEL CALCIUM TOTAL <td>BASIC METABOLI C PANEL</td><td>Timed</td><td>07/24/2020 4:12 AM EDT</td><td></td><td> </td> 07/24/2020 08:12:[address] [facility] TROPONIN QUANTITATIVE <td>TROPONIN I</td><td>Timed </td><td>07/23/2020 11:55 PM EDT</td><td></td><td> </td> 07/24/2020 03:55:[address] [facility] XR CHEST PORTABLE <td>XR CHEST PORTABLE</td><t d>Routine</td><td>07/23/2020 10:03 PM EDT</td><td></td><td> </td> 07/24/2020 02:03:[address] [facility] HEMOGLOBIN GLYCOSYLATED A1C <td>HEMOGLOBIN A1C</td><td>Routine</td><td>07/23/2020 9:08 PM EDT</td><td></td><td> </td> 07/24/2020 01:08:[address] [facility] NT PRO BNP <td>NT PRO BNP</td><td>Routi ne</td><td>07/23/2020 9:07 PM EDT</td><td></td><td> </td> 07/24/2020 01:07:[address] [facility] TROPONIN QUANTITATIVE <td>TROPONIN I</td><td>Timed </td><td>07/23/2020 9:07 PM EDT</td><td></td><td> </td> 07/24/2020 01:07:[address] [facility] THROMBOPLASTIN TIME PARTIAL PLASMA/WHOLE BLOOD <td>APTT</td><td>Routine</td><td>07/23/2020 9:07 PM EDT</td><td></td><td> </td> 07/24/2020 01:07:[address] [facility] PROTHROMBIN TIME <td>PROTIME-INR</td><td>Rout ine</td><td>07/23/2020 9:07 PM EDT</td><td></td><td> </td> 07/24/2020 01:07:[address] [facility] BLOOD COUNT COMPLETE AUTO&AUTO DIFRNTL WBC COUNT <td>C BC AND DIFFERENTIAL</td><td>Routine</td><td>07/23/2020 9:07 PM EDT</td><td></td><td> </td> 07/24/2020 01:07:[address] [facility] BLOOD TYPING ABO <td>TYPE AND SCREEN</td><td> Routine</td><td>07/23/2020 9:07 PM EDT</td><td></td><td> </td> 07/24/2020 01:07:[address] [facility] THYROID STIMULATING HORMONE TSH <td>TSH</td><td>Routin e</td><td>07/23/2020 9:07 PM EDT</td><td></td><td> </td> 07/24/2020 01:07:[address] [facility] MAGNESIUM <td>MAGNESIUM</td><td>Routin e</td><td>07/23/2020 9:07 PM EDT</td><td></td><td> </td> 07/24/2020 01:07:[address] [facility] LIPID PANEL <td>LIPID PANEL</td><td>Rout ine</td><td>07/23/2020 9:07 PM EDT</td><td></td><td> </td> 07/24/2020 01:07:[address] [facility] COMPREHENSIVE METABOLIC PANEL <td>COMPREHENSIVE METABO LIC PANEL</td><td>STAT</td><td>07/23/2020 9:07 PM EDT</td><td></td><td> </td> 07/24/2020 01:07:[address] [facility] ECG ROUTINE ECG W/LEAST 12 LDS TRCG ONLY W/O I&R <td>E CG 12- LEAD</td><td>Routine</td><td>07/23/2020 8:50 PM EDT</td><td></td><td></td> 07/24/2020 12:50:25 AM EDT [facility] Results ID Date Data Source [id number] 05/20/2021 06:56:00 PM EDT [facility] Patient: FLORA MIJARES Observation Re port - [facility].VisitID: [id number] [place] [address] [phone], FRegistration Date/Time: 05/20/2021 11:40 Weight:65.7 kg (S). Height/Length:61 inches (S). BMI:27.4 FAMILY HISTORYNo significant family medical history. (Electronically signed by Anthony Calixto, P.AJosé Miguel 05/20/2021 18:40) Name Value Range Interpretation Code Description Data Ximena rce(s) Supporting Document(s) ID Date Data Source [id number] 05/20/2021 01:42:00 PM EDT [facility] [...] a fine reti culonodular pattern may be enrollment eligibility representative of interstitial edema.Atypical/viral pneumonia is not excluded. Electronically signed in PS360 by: Ant Perez M.D. 05/20/2021 13:36 EDT Name Value Range Interpretation Code Description Data Ximena rce(s) Supporting Document(s) ID Date Data Source [id number] 05/20/2021 01:05:00 PM [facility] [id number] Name Value Range Interpretation Code Description Data Ximena rce(s) Supporting Document(s) MAGNESIUM 2.0 mg/dL 1.8-2.4 [facility] ID Date Data Source [id number] 05/20/2021 01:05:00 PM [facility] [id number] Name Value Range Interpretation Code Description Data Ximena rce(s) Supporting Document(s) TROPONIN-HIGH SENSITIVITY 25.7 ng/L 0-60.4 [facility] ID Date Data Source [id number] 05/20/2021 01:05:00 PM EDT [facility] TSYSORDER [id number] R [id number] Name Value Range Interpretation Code Description Data Ximena rce(s) Supporting Document(s) GLUCOSE 109 mg/dL 74-106 H [facility] BLOOD UREA NITROGEN 25 mg/dL 7-18 H [facility] CREATININE 0.69 mg/dL 0.6-1.0 [facility] SODIUM 142 mmol/L 136-145 [facility] POTASSIUM 3.7 mmol/L 3.5-5.1 [facility] CHLORIDE 105 mmol/L 98-107 [facility] CO2 30 mmol/L 21-32 [facility] CALCIUM 8.3 mg/dL 8.5-10.1 L [facility] ANION GAP 7.0 mmol/L 5-12 [facility] GLOMERULAR FILTRATION RATE 82 mL/min [facility] GFR IS CALCULATED IN mL/min/1.73m2 AGNIESZKA L FUNCTION: >90MILDLY DECREASED: 60-89MILDY TO MODERATELY DECREASED: 45-59 MODERATELY TO SEVERELY DECREASED: 30-44SEVERELY DECREASED: 15-29RENAL FAILURE: <15 AST 23 U/L 15-37 [facility] ALT 31 U/L 12-78 [facility] ALKALINE PHOSPHATASE 95 U/L 46-116 [facility] TOTAL BILIRUBIN 0.5 mg/dL 0.2-1.0 [facility] TOTAL PROTEIN 6.3 g/dl 6.4-8.2 L [facility] ALBUMIN 3.1 gm/dL 3.4-5.0 L [facility] ID Date Data Source [id number] 05/20/2021 12:44:00 PM EDT [facility] TSYSORDER [id number] Name Value Range Interpretation Code Description Data Ximena rce(s) Supporting Document(s) WHITE BLOOD COUNT 8.4 K/mm3 4.0-10.0 [facility] RED BLOOD COUNT 4.17 M/mm3 4.00-5.50 [facility] HEMOGLOBIN 12.1 gm/dL 12.0-16.0 [facility] HEMATOCRIT 36.6 % 36.0-48.8 [facility] MEAN CELL VOLUME 87.8 fl 80-96 [facility] MEAN CORPUSCULAR HEMOGLOBIN 29.0 pg 27.0-31.0 [facility] MEAN CORPUSCULAR HGB CONC 33.1 g/dl 32.0-36.0 [facility] RED CELL DISTRIBUTION WIDTH 15.3 % 10.0-14.5 H [facility] PLATELET COUNT 248 K/mm3 172-450 [facility] MEAN PLATELET VOLUME 9.7 fl 9.0-13.0 [facility] % 76.3 % 50-80.0 [facility] IG% 0.5 % 0.0-0.2 H [facility] LYMPH % 11.1 % 25.0-50.0 L [facility] MONO % 10.6 % 2.0-10.0 H [facility] EOS % 1.4 % 0-5.0 [facility] BASO % 0.1 % 0.0-2.0 [facility] GRAN # 6.4 K/mm3 2.0-8.00 [facility] IG# 0.0 K/mm3 0.0-0.2 [facility] LYMPH # 0.9 K/mm3 1.0-5.0 L [facility] MONO # 0.9 K/mm3 0.10-1.20 [facility] EOS # 0.1 K/mm3 0.0-0.5 [facility] BASO # 0.0 K/mm3 0.0-0.2 [facility] ID Date Data Source [id number] 05/20/2021 12:43:00 PM EDT [facility] TSYSORDER [id number] Name Value Range Interpretation Code Description Data Ximena rce(s) Supporting Document(s) PH 7.35 7.31-7.41 [facility] VENOUS PCO2 51.8 mmHg 41-51 H [facility] VENOUS PO2 37 mmHg 35-42 [facility] VENOUS BLODD O2 SATURATION 58.0 % 68-77 L [facility] VENOUS BLOOD HCO3 27.7 meq/L 24.0-25.0 [facility] BASE EXCESS 1.8 -3.0-3.0 [facility] VENOUS BLOOD CO2 29.3 mmol/L 23.0-32.0 [facility] ID Date Data Source [id number] REFLEX 05/20/2021 12:55:00 PM EDT [facility] TSYSORDER [id number] Name Value Range Interpretation Code Description Data Ximena rce(s) Supporting Document(s) URINE RBC 0-2 /hpf 0-3 [facility] URINE WBC 1-3 /hpf 0-5 [facility] URINE EPITHELIAL CELLS 1+ /hpf [facility] URINE BACTERIA TRACE NONE SEEN H [facility] ID Date Data Source [id number] REFLEX 05/20/2021 12:54:00 PM EDT [facility] ital TSYSORDER [id number] Name Value Range Interpretation Code Description Data Ximena rce(s) Supporting Document(s) URINE COLOR. [facility] URINE APPEARANCE CLEAR [facility] l URINE GLUCOSE (UA) NEGATIVE mg/dL NEGATIVE [facility] URINE BILIRUBIN NEGATIVE NEGATIVE [facility] URINE KETONE NEGATIVE mg/dL NEGATIVE [facility] SPECIFIC GRAVITY,URINE 1.020 1.005-1.030 [facility] URINE BLOOD NEGATIVE NEGATIVE [facility] PH,URINE 7.0 5.0-9.0 [facility] URINE PROTEIN NEGATIVE mg/dL NEGATIVE [facility] trace URINE UROBILINOGEN NORMAL(0.2-1) mg/dL 0-1 [facility] URINE NITRATE NEGATIVE NEGATIVE [facility] URINE LEUKOCYTE ESTERASE TRACE NEGATIVE H [facility] ID Date Data Source [id number] 05/20/2021 11:52:00 AM EDT [facility] Name Value Range Interpretation Code Description Data Ximena rce(s) Supporting Document(s) SARS COV2 TRP Not Detected [facility] This lab was ordered by [facility] and reported by [facility] Laboratory. ID Date Data Source [id number] 05/20/2021 01:11:00 PM EDT [facility] [id number] Name Value Range Interpretation Code Description Data Ximena rce(s) Supporting Document(s) Adenovirus Not Detected Detected Not [facility] Coronavirus 229E Not Detected Detected Not [facility] Coronavirus HKU1 Not Detected Detected Not [facility] Coronavirus NL63 Not Detected Detected Not [facility] Coronavirus OC43 Not Detected Detected Not [facility] Sars Cov 2 Not Detected Detected Not [facility] Negative results do not preclude SARS-Co V-2 infection andshould not be used as the sole basis for treatment or otherpatient management decisions. Negative SARS-CoV-2 resultsmust be combined with clinical observations, patienthistory, and epidemiological information. Human Metapneumovirus Not Detected Detected Not [facility] Human Rhinovirus Not Detected Detected Not [facility] Influenza A Not Detected Detected [facility] Influenza B Not Detected Detected Not [facility] Parainfluenza Virus 1 Not Detected Detected [facility] Parainfluenza Virus 2 Not Detected Detected Not [facility] Parainfluenza Virus 3 Not Detected Detected Not [facility] Parainfluenza Virus 4 Not Detected Detected Not [facility] Respiratory Syncytial Virus Not Detected Detected Not [facility] Bordetella parapertus ([id number]) Not Detected Detected Not [facility] Bordetella pertussis (ptxP) Not Detected Detected Not [facility] Chlamydia pneumoniae Not Detected Detected Not [facility] Mycoplasma pneumoniae Not Detected Detected Not [facility] The results of the respiratory panel andrea kevan notbe used as the sole basis for [...] results have been determined by using the [employer] Film[employer] system.FilmArray is an automated in vitro diagnostic system thatutilizes nested multiplex Polymerase Chain Reaction (PCR)and high-resolution melting analysis to detect and identifymultiple nucleic acid targets from clinical specimens. ID Date Data Source GASTROINTESTINAL GI PANEL (GIPANEL) 05/12/2021 12:00:00 AM EDT eCW1 ([facility]) Name Value Range Interpretation Code Description Data Ximena rce(s) Supporting Document(s) This Gastrointestinal PCR Panel detects the following bacteria, GASTROINTESTINAL (GI) PANEL eCW1 ([facility]) ID Date Data Source CBC with Auto Differential 05/11/2021 12:00:00 AM EDT eCW1 ( [facility]) Name Value Range Interpretation Code Description Data Ximena rce(s) Supporting Document(s) 7.1 4.0-10.0 WHITE BLOOD COUNT eCW1 ([facility]) 39.4 36.0-47.0 HEMATOCRIT eCW1 ([facility]) 4.36 4.00-5.40 RED BLOOD COUNT eCW1 ([facility]) 12.5 12.0-15.5 HEMOGLOBIN eCW1 ([facility]) 28.7 27.0-33.0 MEAN CORPUSCULAR HEMOGLOB IN eCW1 ([facility]) 90.4 80.0-96.0 MEAN CORPUSCULAR VOLUME e CW1 ([facility]) 31.7 32.0-36.5 MEAN CORPUSCULAR HGB CONC eCW1 ([facility]) 14.8 11.5-14.5 RED CELL DISTRIBUTION WID TH eCW1 ([facility]) 250 150-450 PLATELET COUNT, AUTOMATED eCW1 ([facility]) 66.6 36.0-66.0 NEUTROPHILS % eCW1 ([facility]) 18.5 24.0-44.0 LYMPH % eCW1 ([facility]) 0.6 0-3.0 IMMATURE GRANULOCYTE % eCW1 ([facility]) 1.4 0.0-3.0 EOS % eCW1 ([facility]) 12.3 2.0-8.0 MONO % eCW1 ([facility]) 0.6 0.0-1.0 BASO % eCW1 ([facility]) 4.7 1.5-8.5 NEUTROPHILS # eCW1 ([facility]) 0.0 0-0 NUCLEATED RED BLOOD CELL % eCW 1 ([facility]) 1.3 1.5-5.0 LYMPH # eCW1 ([facility]) 0.1 0.0-0.5 EOS # eCW1 ([facility]) 0.0 0.0-0.2 BASO # eCW1 ([facility]) 0.9 0.0-0.8 MONO # eCW1 ([facility]) ID Date Data Source MAGNESIUM LEVEL 05/11/2021 12:00:00 AM EDT eCW1 ([facility]) Name Value Range Interpretation Code Description Data Ximena rce(s) Supporting Document(s) 1.9 1.8-2.4 MAGNESIUM LEVEL eCW1 ([facility]) ID Date Data Source FREE T4 & TSH PANEL 05/11/2021 12:00:00 AM EDT eCW1 ([facility]) Name Value Range Interpretation Code Description Data Ximena rce(s) Supporting Document(s) 2.400 0.358-3.740 THYROID STIMULATING HORM ONE eCW1 ([facility]) 0.93 0.76-1.46 FREE T4 eCW1 ([facility]) ID Date Data Source Comprehensive Metabolic Profile (CMP) 05/11/2021 12:00:00 AM EDT eCW1 ([facility]) Name Value Range Interpretation Code Description Data Ximena rce(s) Supporting Document(s) 91 70-100 GLUCOSE, FASTING eCW1 ([facility]) 0.68 0.55-1.30 CREATININE FOR GFR eCW1 ([facility]) 23 7-18 BLOOD UREA NITROGEN eCW1 ([facility]) 4.8 3.5-5.1 POTASSIUM SERUM eCW1 ([facility]) > 60.0 >39 GLOMERULAR FILTRATION RATE eCW 1 ([facility]) 139 136-145 SODIUM LEVEL eCW1 ([facility]) 29 21-32 CARBON DIOXIDE LEVEL eCW1 ([facility]) 105 98-107 CHLORIDE LEVEL eCW1 ([facility]) 7.9 8.8-10.2 CALCIUM LEVEL eCW1 ([facility]) 29 7-37 AST/SGOT eCW1 ([facility]) 34 12-78 ALT/SGPT eCW1 ([facility]) 0.3 0.2-1.0 BILIRUBIN,TOTAL eCW1 ([facility]) 139 45-117 ALKALINE PHOSPHATASE eCW1 ([facility]) 6.0 6.4-8.2 TOTAL PROTEIN eCW1 ([facility]) 1.3 1.2-2.2 ALBUMIN/GLOBULIN RATIO eCW1 ([facility]) 3.4 3.2-5.2 ALBUMIN eCW1 ([facility]) ID Date Data Source [id number] 03/20/2021 11:00:00 AM EDT [facility] Name Value Range Interpretation Code Description Data Ximena rce(s) Supporting Document(s) SARS-CoV-2 (COVID-19) RNA [Presence] in Respiratory specimen by GELY with probe detection Not Detected [facility] This lab [facility] ordered [facility] and reported by [employer] ID Date Data Source [id number] 01/27/2021 03:49:07 PM EDT [facility] MR LUMBAR SPINE WITHOUT CONTRAST [id number] NAL RESULTInterpreted by:Hiro Fischer MDEXAMINATION: MR LUMBAR SPINE WITHOUT CONTRAST [id number] - PARESTHESIA OF SKIN, RIGHT LEG PAIN, [...] rce(s) Supporting Document(s) ID Date Data Source [facility] Foot, complete 01/09/2021 12:00:00 AM EDT eCW1 ([facility]) Name Value Range Interpretation Code Description Data Ximena rce(s) Supporting Document(s) [facility] Foot, complete eCW1 ([facility]) ID Date Data Source [facility] Chest, 2 view (PA\\Lat) 01/09/2021 12:00:00 AM EDT eCW1 ( [facility]) Name Value Range Interpretation Code Description Data Ximena rce(s) Supporting Document(s) [facility] Chest, 2 view (PA\\Lat) eCW 1 ([facility]) ID Date Data Source [facility] Hand, complete 01/09/2021 12:00:00 AM EDT eCW1 ([facility]) Name Value Range Interpretation Code Description Data Ximena rce(s) Supporting Document(s) [facility] Hand, complete eCW1 ([facility]) ID Date Data Source CYCLIC CITRULLINATED PEPTIDE 01/07/2021 12:00:00 AM EDT eCW1 ([facility]) Name Value Range Interpretation Code Description Data Ximena rce(s) Supporting Document(s) 3 0-19 CYCLIC CITRULLINATED PEPTIDE e CW1 ([facility]) ID Date Data Source VITAMIN D 1,25 DIHYDROXY 01/07/2021 12:00:00 AM EDT eCW1 ([facility]) Name Value Range Interpretation Code Description Data Ximena rce(s) Supporting Document(s) 49.5 19.9-79.3 VITAMIN D 1,25 DIHYDROXY eCW1 ([facility]) ID Date Data Source Hepatitis B Surf AB Quant 01/07/2021 12:00:00 AM EDT eCW1 ([facility]) Name Value Range Interpretation Code Description Data Ximena rce(s) Supporting Document(s) <3.1 Immunity>9.9 HEPATITIS B SURF AB LUDIVINA NT eCW1 ([facility]) ID Date Data Source ANTI-SJOGRENS A&B ANTIBODIES 01/07/2021 12:00:00 AM EDT eCW1 ([facility]) Name Value Range Interpretation Code Description Data Ximena rce(s) Supporting Document(s) <0.2 0.0-0.9 SSA SJOGRENS A eCW1 ([facility]) <0.2 0.0-0.9 SSB SJOGRENS B eCW1 ([facility]) ID Date Data Source HEPATITIS B CORE ANTIBODY IGG 01/07/2021 12:00:00 AM EDT eCW 1 ([facility]) Name Value Range Interpretation Code Description Data Ximena rce(s) Supporting Document(s) Negative Negative HEPATITIS B CORE ANTIBODY IGG eCW1 ([facility]) ID Date Data Source ANTI DOUBLE STRAND DNA ADDIE 01/07/2021 12:00:00 AM EDT eCW1 ( [facility]) Name Value Range Interpretation Code Description Data Ximena rce(s) Supporting Document(s) ANTI DOUBLE STRAND DNA ADDIE eCW 1 ([facility]) ID Date Data Source ANTI GERALD EXTRACTABLE NUCLEAR A 01/07/2021 12:00:00 AM EDT eC W1 ([facility]) Name Value Range Interpretation Code Description Data Ximena rce(s) Supporting Document(s) < 0.2 0.0-0.9 SMITHS ANTIBODY eCW1 ([facility]) < 0.2 0.0-0.9 ENERGY CONTROL OFFICER ANTIBODY eCW1 ([facility]) ID Date Data Source ANGIOTENSIN 1 CONVERTING ENZYM 01/07/2021 12:00:00 AM EDT eC W1 ([facility]) Name Value Range Interpretation Code Description Data Ximena rce(s) Supporting Document(s) 18 14-82 ANGIOTENSIN 1 CONVERTING ENZYM eCW1 ([facility]) ID Date Data Source ANCA Panel with MPO & PR3 01/07/2021 12:00:00 AM EDT eCW1 ([facility]) Name Value Range Interpretation Code Description Data Ximena rce(s) Supporting Document(s) Myeloperoxidase Ab [Units/volume] in Serum <9.0 0.0-9.0 Antimyeloperxidase(MPO) Abs eCW1 ([facility]) Proteinase 3 Ab [Units/volume] in Serum <3.5 0.0-3.5 Antiproteinase 3 (DC-3) Abs eCW1 ([facility]) Neutrophil cytoplasmic Ab.classic [Titer] in Serum by Immuno fluorescence <1:20 Neg:<1:20 Cytoplasmic (C-ANCA) eCW1 ([facility]) Neutrophil Cytoplasmic Ab atypical [Presence] in Serum by Immunofluorescence <1:20 Neg:<1:20 Atypical pANCA eCW1 ([facility]) Neutrophil cytoplasmic Ab.perinuclear [Titer] in Serum by Immunofluorescence <1:20 Neg:<1:20 Perinuclear (P-ANCA) eCW1 ([facility]) ID Date Data Source VITAMIN D 25-HYDROXY 01/07/2021 12:00:00 AM EDT eCW1 ([facility]) Name Value Range Interpretation Code Description Data Ximena rce(s) Supporting Document(s) 42.5 30.0-100.0 TOTAL 25(OH) VITAMIN D eC W1 ([facility]) ID Date Data Source HEPATITIS C ANTIBODY INDEX 01/07/2021 12:00:00 AM EDT eCW1 ( [facility]) Name Value Range Interpretation Code Description Data Ximena rce(s) Supporting Document(s) < 0.0 <0.8 HEPATITIS C VIRUS ADDIE IND EX eCW1 ([facility]) ID Date Data Source ERYTHROCYTE SEDIMENTATION RATE 01/07/2021 12:00:00 AM EDT eC W1 ([facility]) Name Value Range Interpretation Code Description Data Ximena rce(s) Supporting Document(s) 23 0-20 ERYTHROCYTE SEDIMENTATION RATE eCW1 ([facility]) ID Date Data Source C REACTIVE PROTEIN QUANTITATIV (At [facility]) 01/07/2021 12:00 :00 AM EDT eCW1 ([facility]) Name Value Range Interpretation Code Description Data Ximena rce(s) Supporting Document(s) 0.30 0.00-0.30 C REACTIVE PROTEIN QUANTI TATIV eCW1 ([facility]) ID Date Data Source CBC with Differential 01/07/2021 12:00:00 AM EDT eCW1 ([facility]) Name Value Range Interpretation Code Description Data Ximena rce(s) Supporting Document(s) 5.6 4.0-10.0 WHITE BLOOD COUNT eCW1 ([facility]) 36.4 42.0-52.0 HEMATOCRIT eCW1 ([facility]) 11.5 13.5-17.5 HEMOGLOBIN eCW1 ([facility]) 4.00 4.30-6.10 RED BLOOD COUNT eCW1 ([facility]) 31.6 32.0-36.5 MEAN CORPUSCULAR HGB CONC eCW1 ([facility]) 28.8 27.0-33.0 MEAN CORPUSCULAR HEMOGLOB IN eCW1 ([facility]) 91.0 80.0-96.0 MEAN CORPUSCULAR VOLUME e CW1 ([facility]) 62.1 36.0-66.0 NEUTROPHILS % eCW1 ([facility]) 15.1 11.5-14.5 RED CELL DISTRIBUTION WID TH eCW1 ([facility]) 264 150-450 PLATELET COUNT, AUTOMATED eCW1 ([facility]) 1.6 0.0-3.0 EOS % eCW1 ([facility]) 22.2 24.0-44.0 LYMPH % eCW1 ([facility]) 13.2 2.0-8.0 MONO % eCW1 ([facility]) 3.5 1.5-8.5 NEUTROPHILS # eCW1 ([facility]) 0.5 0.0-1.0 BASO % eCW1 ([facility]) 1.2 1.5-5.0 LYMPH # eCW1 ([facility]) 0.1 0.0-0.5 EOS # eCW1 ([facility]) 0.7 0.0-0.8 MONO # eCW1 ([facility]) 0.0 0.0-0.2 BASO # eCW1 ([facility]) ID Date Data Source [id number] 12/16/2020 09:16:[address] [facility] Name Value Range Interpretation Code Description Data Ximena rce(s) Supporting Document(s) &PDF [facility] [id number] pYy [file] [id number]== ID Date Data Source [id number] 10/29/2020 02:38:00 PM EST [facility] Name Value Range Interpretation Code Description Data Ximena rce(s) Supporting Document(s) IgG P93 AB Laboratory test result [facility] ([facility]) IgG P66 AB Laboratory test result [facility] ([facility]) IgG P45 AB Laboratory test result [facility] ([facility]) IgG P41 AB Laboratory test result Abnormal (applies to non -numeric results) [facility] IgG P58 AB Laboratory test result [facility] IgG P30 AB Laboratory test result [facility]) IgG P39 AB Laboratory test result [facility]) IgG P23 AB Laboratory test result [facility]) IgG P28 AB Laboratory test result [facility]) IgG P18 AB Laboratory test result [facility] ([facility]) Lyme IgG WB Interpretation Laboratory test result [facility]) Positive: 5 of the following Borrelia-specific bands: 18,23,28,30,39,41,45,58, 66, and 93. Negative: No bands or banding patterns which do not meet positive criteria. IgM P41 AB Laboratory test result [facility] ([facility]) IgM P23 AB Laboratory test result [facility] ([facility]) IgM P39 AB Laboratory test result [facility] Lyme IgM WB Interpretation Laboratory test result [facility] ([facility]) Note: An equivocal or positive EIA resul [...] are those recommended by CDC/ASTPHLD. p23=Osp C, i83=oirnbvmte . Note: Sera from individuals with the following may cross react in the Lyme Line Blot assays: other spirochetal diseases (periodontal disease, leptospirosis, rel apsing fever, yaws, and pinta); connective autoimmune (Rheumatoid Arthritis and Systemic Lupus Erythematosus and also individuals with Antinuclear Antibody); other infections ([place] Spotted Fever; Amena-Joseph Virus, and Cytomegalovirus). . ID Date Data Source [id number] 10/29/2020 02:38:00 PM EST [facility] ([facility]) Name Value Range Interpretation Code Description Data Ximena rce(s) Supporting Document(s) Antinuclear Antibodies Direct Laboratory test result [facility] ([facility]) Performed at: [facility] [place] [id number] Outreach Manager: Zeenat Omer MD, Phone: [phone] ID Date Data Source [id number] 10/29/2020 02:38:00 PM EST [facility]) Name Value Range Interpretation Code Description Data Ximena rce(s) Supporting Document(s) Erythrocyte sedimentation rate by 2H Westergren method 21 mm/hr 0-2 0 [facility] Rheumatoid factor [Units/volume] in Serum or Plasma 47.2 IU/ml [facility] ([facility]) ID Date Data Source [id number] 10/02/2020 04:22:00 PM EST [facility] [...] rce(s) Supporting Document(s) ID Date Data Source [id number] 09/29/2020 11:47:00 AM EST [facility] ([facility]) Name Value Range Interpretation Code Description Data [facility] rce(s) Supporting Document(s) Thyroid Stimulating Hormone 1.240 uIU/ML 0.358-3.740 [facility] ([facility]) Free T4 1.23 ng/dL 0.76-1.46 [facility] ([facility]) ID Date Data Source [id number] 09/29/2020 11:47:00 AM EST [facility] ([facility]) Name Value Range Interpretation Code Description Data [facility] rce(s) Supporting Document(s) Blood Urea Nitrogen 27 mg/dL 7-18 [facility] ([facility]) Glucose, Fasting 103 mg/dL 70-100 [facility] ([facility]) Glomerular Filtration Rate Laboratory test result [facility] ([facility]) <content>Units are mL/min/1.73 m2</content>
<content></content>
<content>Chronic Kidney Disease Staging per NKF:</content>
<content></content>
<content>Stage I & II GFR >=60 Normal to Mildly Decreased</content>
<content>Stage III GFR 30- 59 Moderately Decreased</content>
<content>Stage IV GFR 15-29 Severely Decreased</content>
<content>Stage V GFR <15 Very Little GFR Left</content>
<content>ESRD GFR <15 on DATABASE PROGRAMMER ANALYST</content>
<content></content> Creatinine For GFR 0.89 mg/dL 0.70-1.30 [facility] ([facility]) Sodium Level 141 meq/L 136-145 [facility] ([facility]) Potassium Serum 4.4 meq/L 3.5-5.1 [facility] ([facility]) Carbon Dioxide Level 30 meq/L 21-32 [facility] ([facility]) Chloride Level 107 meq/L 98-107 [facility] ([facility]) Anion Gap 4 meq/L 8-16 [facility] ([facility]) Calcium Level 8.7 mg/dL 8.8-10.2 [facility] ([facility]) Alt/SGPT 38 U/L 12-78 [facility] ([facility]) Ast/Sgot 28 U/L 7-37 [facility] ([facility]) Alkaline Phosphatase 124 U/L 45-117 [facility] ([facility]) Bilirubin,Total 0.4 mg/dL 0.2-1.0 [facility] ([facility]) Albumin 3.7 GM/DL 3.2-5.2 [facility] ([facility]) Total Protein 6.5 GM/DL 6.4-8.2 [facility] ([facility]) Albumin/Globulin Ratio 1.3 [facility] ([facility]) ID Date Data Source [id number] 09/29/2020 11:47:00 AM EST [facility] ([facility]) Name Value Range Interpretation Code Description Data Ximena rce(s) Supporting Document(s) White Blood Count 6.8 10 4.0-10.0 [facility] ([facility], ) Red Blood Count 4.52 10 4.30-6.10 [facility] ([facility]) Hemoglobin 12.7 g/dL 13.5-17.5 [facility] ([facility]) Hematocrit 41.2 % 42.0-52.0 [facility] ([facility]) Mean Corpuscular Volume 91.2 fl 80.0-96.0 M EDENT ([facility]) Mean Corpuscular Hemoglobin 28.1 pg 27.0-33.0 [facility] ([facility]) Mean Corpuscular HGB Conc 30.8 g/dL 32.0-36.5 [facility] ([facility]) Platelet Count, Automated 270 10 150-450 [facility], ) Nucleated Red Blood Cell % 0.0 % 0-0 [facility] ([facility], ) Red Cell Distribution Width 14.5 % 11.5-14.5 [facility] ([facility], ) ID Date Data Source CBC - Complete Blood Count 09/29/2020 12:00:00 AM EST eCW1 ( [facility]) Name Value Range Interpretation Code Description Data Ximena rce(s) Supporting Document(s) 41.2 42.0-52.0 eCW1 ([facility]) 6.8 4.0-10.0 eCW1 ([facility]) 12.7 13.5-17.5 eCW1 ([facility]) 91.2 80.0-96.0 eCW1 ([facility]) 4.52 4.30-6.10 eCW1 ([facility]) 270 150-450 eCW1 ([facility]) 30.8 32.0-36.5 eCW1 ([facility]) 28.1 27.0-33.0 eCW1 ([facility]) 14.5 11.5-14.5 eCW1 ([facility]) ID Date Data Source [id number] 09/10/2020 02:35:00 PM EST [facility] Patient: FLORA MIJARES [facility].VisitID: [id number] [place] [address] [phone], FRegistration Date/Time: 08/25/2020 17:57 Weight:74.8 kg (S). Height/Length:61 inches (S). BMI:31.2 PAST HISTORYProblems:Coronary Artery Disease [Chronic].Heart Disease [Chronic].Hypertension [Chronic].Neuropathy [Chronic].Lung Disease [Chronic].COPD - Chronic Obstructive Pulmonary Disease [Chronic].Gastroesophageal Reflux Disease [Chronic].Myofascial Strain [Chronic].Atrial fibrillation.COPD - Chronic Obstructive Pulmonary Disease.Palpitations. Additional Surgeries:Appendectomy.Cardiac Catheterization.Cardiac Surgery. (Multiple stents)Colonoscopy.Coronary Artery Bypass Graft. ([id number])Endoscopy.Hernia Repair.Pacemaker.Tubal Ligation.Ventral Hernia repair . Medications:Metoprolol Tartrate [...] rce(s) Supporting Document(s) ID Date Data Source [id number] 08/25/2020 09:30:00 PM EST [facility] [...] rce(s) Supporting Document(s) ID Date Data Source [id number] 09/01/2020 08:15:00 AM EST [facility] Name Value Range Interpretation Code Description Data Ximena rce(s) Supporting Document(s) [facility] ID Date Data Source [id number] 09/01/2020 08:15:00 AM EST [facility] Name Value Range Interpretation Code Description Data Ximena rce(s) Supporting Document(s) [facility] ID Date Data Source [id number] 08/25/2020 07:35:00 PM EST [facility] Name Value Range Interpretation Code Description Data Ximena rce(s) Supporting Document(s) TSH 1.25 uIU/mL 0.36-3.74 [facility] ID Date Data Source [id number] 08/25/2020 07:24:00 PM EST [facility] Name Value Range Interpretation Code Description Data Ximena rce(s) Supporting Document(s) PARTIAL THROMBOPLASTIN TIME 22.9 SECONDS 21.2-27.3 [facility] ID Date Data Source [id number] 08/25/2020 07:24:00 PM EST [facility] Name Value Range Interpretation Code Description Data Ximena rce(s) Supporting Document(s) PROTHROMBIN TIME (PATIENT) 11.0 SECONDS 9.1-11.6 [facility] INR 1.06 0.87-1.06 [facility] ID Date Data Source [id number] 08/25/2020 07:24:00 PM EST [facility] Name Value Range Interpretation Code Description Data Ximena rce(s) Supporting Document(s) LACTIC ACID 0.7 mmol/L 0.4-2.0 [facility] ID Date Data Source [id number] 08/25/2020 07:24:00 PM EST [facility] Name Value Range Interpretation Code Description Data Ximena rce(s) Supporting Document(s) B-TYPE NATRIURETIC PEPTIDE 286 pg/ml 0-450 [facility] ID Date Data Source [id number] 08/25/2020 07:24:00 PM EST [facility] Name Value Range Interpretation Code Description Data Ximena rce(s) Supporting Document(s) MAGNESIUM 2.0 mg/dL 1.8-2.4 [facility] ID Date Data Source [id number] 08/25/2020 07:24:00 PM [facility] Name Value Range Interpretation Code Description Data Ximena rce(s) Supporting Document(s) TROPONIN I < 0.017 ng/mL 0.0-0.056 [facility] ID Date Data Source [id number] 08/25/2020 07:24:00 PM [facility] Name Value Range Interpretation Code Description Data Ximena rce(s) Supporting Document(s) LIPASE 69 U/L 73-393 L [facility] ID Date Data Source [id number] 08/25/2020 07:24:00 PM [facility] Name Value Range Interpretation Code Description Data Ximena rce(s) Supporting Document(s) GLUCOSE 93 mg/dL 74-106 [facility] BLOOD UREA NITROGEN 26 mg/dL 7-18 [facility] ital CREATININE 0.9 mg/dL 0.6-1.0 [facility] SODIUM 144 mmol/L 136-145 [facility] POTASSIUM 4.3 mmol/L 3.5-5.1 [facility] CHLORIDE 105 mmol/L 98-107 [facility] CO2 29 mmol/L 21-32 [facility] CALCIUM 9.2 mg/dL 8.5-10.1 [facility] ANION GAP 10.0 mmol/L 5-12 [facility] GLOMERULAR FILTRATION RATE 61 mL/min [facility] GFR IS CALCULATED IN mL/min/1.73m2 AGNIESZKA L FUNCTION: >90MILDLY DECREASED: 60-89MILDY TO MODERATELY DECREASED: 45-59 MODERATELY TO SEVERELY DECREASED: 30-44SEVERELY DECREASED: 15-29RENAL FAILURE: <15 AST 29 U/L 15-37 [facility] ALT 46 U/L 12-78 [facility] ALKALINE PHOSPHATASE 117 U/L 46-116 H [facility] TOTAL BILIRUBIN 0.5 mg/dL 0.2-1.0 [facility] TOTAL PROTEIN 7.2 g/dl 6.4-8.2 [facility] ALBUMIN 3.8 gm/dL 3.4-5.0 [facility] ID Date Data Source [id number] 08/25/2020 07:17:00 PM EST [facility] Name Value Range Interpretation Code Description Data Ximena rce(s) Supporting Document(s) WHITE BLOOD COUNT 7.5 K/mm3 4.0-10.0 [facility] RED BLOOD COUNT 4.48 M/mm3 4.00-5.50 [facility] HEMOGLOBIN 13.1 gm/dL 12.0-16.0 [facility] HEMATOCRIT 40.0 % 36.0-48.8 [facility] MEAN CELL VOLUME 89.3 fl 80-96 [facility] MEAN CORPUSCULAR HEMOGLOBIN 29.2 pg 27.0-31.0 [facility] MEAN CORPUSCULAR HGB CONC 32.8 g/dl 32.0-36.0 [facility] RED CELL DISTRIBUTION WIDTH 15.6 % 10.0-14.5 H [facility] PLATELET COUNT 296 K/mm3 172-450 [facility] MEAN PLATELET VOLUME 9.3 fl 9.0-13.0 [facility] GRAN % 69.5 % 50-80.0 [facility] IG% 0.3 % 0.0-0.2 H [facility] LYMPH % 16.9 % 25.0-50.0 L [facility] MONO % 12.0 % 2.0-10.0 H [facility] EOS % 1.2 % 0-5.0 [facility] BASO % 0.1 % 0.0-2.0 [facility] GRAN # 5.2 K/mm3 2.0-8.00 [facility] IG# 0.0 K/mm3 0.0-0.2 [facility] LYMPH # 1.3 K/mm3 1.0-5.0 [facility] MONO # 0.9 K/mm3 0.10-1.20 [facility] EOS # 0.1 K/mm3 0.0-0.5 [facility] BASO # 0.0 K/mm3 0.0-0.2 [facility] ID Date Data Source [id number] 08/13/2020 10:29:[address] [facility] Name Value Range Interpretation Code Description Data Ximena rce(s) Supporting Document(s) &PDF [facility] FVXPDg4eTwJBJgZl14/PMUitMZHls1CbXSnaOZn3CMfiCTKdW4ZqzTwhFJzUSicBCN9rMCQPLH6tIHBr waW [file] AgICAgICAgICAgICAgICAgICAgICAgICAgICAgICAgICAgICAgICAgICAgICAgICAgICAgICAgICAgIC AgICAgICAgICAgICAgICAgICAgICAgDQogICAgICAgICAgICAgICAgICAgICAgICAgICAgICAgICAgIC AgICAgICAgICAgICAgICAgICAgICAgICAgICAgICAg ICAgICAgICAgICAgICAgICAgICAgICAgICAgICAgICAgDQogICAgICAgICAgICAgICAgICAgICAgICAg ICAgICAgICAgICAgICAgICAgICAgICAgICAgICAgICAgICAgICAgICAgICAgICAgICAgICAgICAgICAg ICAgICAgICAgICAgICAgDQogICAgICAgICAgICAgIC AgICAgICAgICAgICAgICAgICAgICAgICAgICAgICAgICAgICAgICAgICAgICAgICAgICAgICAgICAgIC AgICAgICAgICAgICAgICAgICAgICAgICAgDQogICAgICAgICAgICAgICAgICAgICAgICAgICAgICAgIC AgICAgICAgICAgICAgICAgICAgICAgICAgICAgICAg ICAgICAgICAgICAgICAgICAgICAgICAgICAgICAgICAgICAgDQogICAgICAgICAgICAgICAgICAgICAg ICAgICAgICAgICAgICAgICAgICAgICAgICAgICAgICAgICAgICAgICAgICAgICAgICAgICAgICAgICAg ICAgICAgICAgICAgICAgICAgDQogICAgICAgICAgIC AgICAgICAgICAgICAgICAgICAgICAgICAgICAgICAgICAgICAgICAgICAgICAgICAgICAgICAgICAgIC AgICAgICAgICAgICAgICAgICAgICAgICAgICAgDQogICAgICAgICAgICAgICAgICAgICAgICAgICAgIC AgICAgICAgICAgICAgICAgICAgICAgICAgICAgICAg ICAgICAgICAgICAgICAgICAgICAgICAgICAgICAgICAgICAgICAgDQogICAgICAgICAgICAgICAgICAg ICAgICAgICAgICAgICAgICAgICAgICAgICAgICAgICAgICAgICAgICAgICAgICAgICAgICAgICAgICAg ICAgICAgICAgICAgICAgICAgICAgDQogICAgICAgIC AgICAgICAgICAgICAgICAgICAgICAgICAgICAgICAgICAgICAgICAgICAgICAgICAgICAgICAgICAgIC TyKVVfMOUwDIIdOAGdKCJhUUFrXDRwRLRmLIWpHUJcAVl7G9mvMAZlWWGgBI7vCNx0De5+DQoNCmVuZH R6owQqwE2LGT0ru1OxOPhgMCMfi9FvZUa8EW1LZUOf QGkuOT2KJGtvil8DBFBwRMOiwKRXn0yrOnZsWXN4POKcEdxqHE4VQCYfR1hkxqItZGEuFTCTBFypHBKA ZD7OYfNbU2SipE14QGBYZe8+ZHyvncLkKmxRHvX4MSPnb7PlVQz8OH6UERLlXBgvAR7YVSNexJ3gTHxa FS9BJdOoTiFcKAJTIrFrQ96uzUExSBi6U8EmPcYoPH VkRmlsZXMgPDwvTmFtZXMgWyBdDQogID4+ID4+VDyfJX7IAWjwdaOyHKBpAj2DFCEcDBZ9ULBfrMVaVA fdQCKZKPtwNY9PhNQsAMU4yP5uCNohEOFmOFMvF4hBHpDozFptHQ42uRxrlgMliYVfCFc+Ft5XXH7kz9 JnYEw6feOhPYobAQB6QZyoXAAqMVHrQQGpLIH0RNH9 HWFEMtRxFFHeCGMvVManZYKzEJMwpr6PYQGdOPQeMOLzJjIqSFHdNFCzPRzjQVGxGHE3QeX8XLNePMDc GT6OJmVlVHYsNMQrTVcrIOSiYOSeoe8NSNRsIJKyUxF6BOCrKDYoBWDyNJuxYWUjFJMlUaHmFEPzJAQb MC0OOhRxANQbTRX0QEPnPURwHOFzsd3KNELhADErVG LuXYJtTPTbDFPxQZymHRBfXCM1DWQ7SFVrTGZzHG7AGpMxFAUoUHAnOgYjEYFvTBOddc7ROGFoIIApUK Z3FEQiXRQpJAQbNQklYQPuDNN9YJKdTAGlGVEiUP5HWlAnUIYiKVP1WJWiQFXkDTGnpt1ASLLyIIHiJd x0YBCvQNJaXPBfMJylAPBxMXRaTWryYTWfNELaUN4L VbVpPJKcOOP2WGKiJNBjUMMlse6ZZOVdJDPsIHoeALPrLHKgFEJtTYwwFWSmYFX0ItI2TDLyIYMiYB0U RvPjTIphLTZEJuj0LJimO3w3JXUfZI0UI0Vxe8WdZFatCDMRWPdbQQ5ladPiAWUqDy4EJ5mRMrv4ZrF8 EUY8XPPpRkQ6WcN0YjGyXFlzLORxCsZeJlK4DL0lHE NcOLT6JxH7McA5IlXaItV8M8L6E0EyRvMsUOA2AGhlPiKnDX6MQu0ZYhX7NYB8kWSkBc8STDv8IPYXHu EkDW5POQj= ID Date Data Source [id number] 07/28/2020 09:44:[address] [facility] Name Value Range Interpretation Code Description Data Ximena rce(s) Supporting Document(s) EKG [facility] ITQDRo6tLxJJWvVin6EfYySuGLZmMD9mskv8F0M4sBYbF5UdwCBvt3otY7SkQ9OjYVHnJOHLBX0UjWNa jb2 [file] GaILUxCRFFHm6Im801ZEVhZZVBPha+KczeqEBrqDhlIIUTAIB5TmTHCMPYQ5Y= ID Date Data Source [id number] 07/28/2020 09:35:14 AM EST [facility] INFORMATIONPatient MRN Name Date of Age Gend*PT [id number] Flora Mijares 1940 79 years F IPPT Location Admission Date/Time Visit ID Attending [id number] 07/23/202045 --- Kai Dahl MD([id number]) EPI ID CSN Admitting Provider [id number] Pauline Hernandez MD([id number]) [facility] DISCHARGE SUMMARYPatient Name: Flora Mijares of : 1940 Age 79 yearsPrimary Physician: HELIO ZABALA MD PCP Cnxcmtlfu Date: 07/23/2020 [facility] Date[facility] [place] Diagnoses:Principal Problem:Symptomatic bradycardia status post PPM placement [...] by mouth 2 (two) times a dayUmeclidinium Quincy (INCRUSE ELLIPTA) 62.5 MCG/INH AEPB Inhale 1 puff nightlyzolpidem (AMBIEN) 10 MG tablet Take 10 mg by mouth nightly as needed for sleepSTOP taking these medications metroNIDAZOLE (FLAGYL) 500 MG tablet atenolol (TENORMIN) 50 MG tabletFollow Up Instructions:The patient was given an after visit hitesh hay.Patient will follow up with PCP in 3-7 [...] mental status, speech normal, alert and oriented [id number]:Imaging:Chest x-ray post pacemaker placementIMPRESSION: No pneumothorax or [...] rce(s) Supporting Document(s) ID Date Data Source [id number] 07/28/2020 07:57:42 AM EST [facility] Name Value Range Interpretation Code Description Data Ximena rce(s) Supporting Document(s) SODIUM 138 mmol/L (136-145) [facility] POTASSIUM 4.5 mmol/L (3.6-5.2) [facility] CHLORIDE 103 mmol/L (100-108) [facility] CO2 28 mmol/L (22-31) [facility] ANION GAP 7 mmol/L (7-16) [facility] UREA NITROGEN 24 mg/dL (7-24) [facility] CREATININE 0.52 mg/dL (0.60-1.00) L [facility] BUN/CREAT RATIO 46.2 RATIO (10.0-20.0) H [facility] GLUCOSE 106 mg/dL (70-99) H [facility] CALCIUM 8.5 mg/dL (8.4-10.2) [facility] GFR >60 ml/min/1.73m2 (>59) [facility] GFR ( AMER) >60 ml/min/1.73m2 (>59) [facility] GFR INTERPRETATION [facility] --NORMAL KIDNEY FUNCTION OR MILD DISEASE - GFR >OR= 60CHRONIC KIDNEY DISEASE - GFR 15 - 59RENAL FAILURE - GFR <15 Est. GFR calculation based on the MDRDstudy equation, which assumes a steadystate for creatinine. Est. GFR should notbe used for medication dosing. ID Date Data Source [id number] 07/28/2020 07:22:26 AM EST [facility] Name Value Range Interpretation Code Description Data Ximena rce(s) Supporting Document(s) WBC 5.7 10*3/uL (4.1-11.0) [facility] [place] RBC 3.60 10*6/uL (4.00-5.40) L [facility] HGB 10.5 g/dL (12.0-16.0) L [facility] HCT 31.0 % (36.0-47.0) L [facility] MCV 86.3 fL (80.0-95.0) [facility] MCH 29.1 pg (27.0-32.0) [facility] MCHC 33.7 g/dL (32.0-36.0) [facility] RDW 15.5 % (10.5-14.5) H [facility] PLT 207 10*3/uL (150-450) [facility] MPV 7.4 fL (7.1-10.7) [facility] ID Date Data Source [id number] 07/27/2020 12:24:[address] [facility] Name Value Range Interpretation Code Description Data Ximena rce(s) Supporting Document(s) &PDF [facility] TJDHPv0lLxPHDaKl92/MYXxoUPFjn2BiOQubVQj7STygALKyD9McmXytHGdJZtvTVX5lDVNBZQ4xSIAp pYy [file] sgPrLX6rkH58whpv/evp global product leadership/cg1IZaZaPQ2UvtSXVIIqus7DlFN1z7TP1hYBftFlp1EA4xlwGDQdQzOKR7um [file] JJmNU6/LUZ ELENA+S8NdL9YxSEMOHe5gy/6Mlt47x4uOY0vrVB0RYZoRlrWgJDbUjEvYrVX5tezR8Kx8ZgSqV [file] xEFgPpMI6WJLy= ID Date Data Source [id number] 07/27/2020 10:33:50 AM EST [facility] NT INFORMATIONPatient MRN Name Date of Age Gend*PT [id number] Flora Mijares 1940 79 years F OBSPT Location Admission Date/Time Visit ID Attending [id number] 07/23/202045 --- Kai Dahl MD([id number]) EPI ID CSN Admitting Provider [id number] Pauline Hernandez MD([id number]) [facility] DISCHARGE SUMMARYPatient Name: Flora Mijares of : 1940 Age 79 yearsPrimary Physician: HELIO ZABALA MD PCP Sgjagxlix Date: 07/23/2020 [facility]:Principal Problem:Symptomatic bradycardia status post PPM placementActive [...] by mouth 2 (two) times a dayUmeclidinium Quincy (INCRUSE ELLIPTA) 62.5 MCG/INH AEPB Inhale 1 [...] mental status, speech normal, alert and oriented k8Gfwqtwlhbck:Imaging :Chest x-ray post pacemaker placementIMPRESSION: No pneumothorax [...] rce(s) Supporting Document(s) ID Date Data Source [id number] 07/27/2020 07:13:[address] [facility] Name Value Range Interpretation Code Description Data Ximena rce(s) Supporting Document(s) EKG [facility] SNPXEb3mHoSBZtKxk1NhSkJjMUFdFJ2ytjw8V8G9iNHkP8NomYVco3baL0YrV5LjGYMtGAIZEK5ZoAPs jb2 [file] fi8/Obstetrical Anesthesiologist+HfxU+7ZB/lfgUln+KFTFN4QNzS/ORll7SO9 4MLhpvRBUhf5AYE22i8LMTByb268CJeq33Nvj4KzDEniYl0if/TIe32vbKWd90gPQTc43fcCRdmmt2+N bY98KjAo0Sr24n3BNQxLPP4EIZbG3/VPO3Gz9JOhX1CM3n9La4CCxPTwff3j0wD0m1piCSd3E1CIVqg8 Ustypxpxpg3K9kj84KR9Y9Icx1Xlx3TdA+8ahq2724 p6Cf7UKshS5j6bo6Rkv4RrgwtCxcMKbQpeQnODdqTc4uVV7t6V8UKZQ5ECpE6uVvM4oIbakeUA9vScdK HbjevxP+1YR/NeFfTfhXE/6HhB323C2T+FcT/wBLuiQuX70bN36En6PRBS5lcUa5TSgjJe4CHlbgzoql nT06Cyl/StyADbgDD+AJvIAhF+dYk0LleX8FeXSZJh +765E0W6UfUM1C1T7S/p8618V4lsJt4tu/dsq/Mn0+gCd+p4U1jQPJIlmuHaCqiIU5BcKv0Vs3hDYc1X 8doLphxEuknJxqiiskIEuF5O3MT4mQJ3I0jiYkGDhSn3N6B5bmVvh7nqTdFUzxR7cudRmfcBpxTz93X+ 731Hx/yl7F+jR5o3TdtS0m1Ugvj/s31NH9Vk3Rzkgd el8XF02z5jhIA/7G0vpV+ERuxQI6bjsbUS/hIsHvm22GhG+vsFda+11hr+TjrbBXM/yZFfZqhW+2wl4t 6Lp9Fl3jRhuoD3qEsFGfm4DgcyzN+WVdx9buM/EeC8mm3lRdF9nAl9bpQ66jhGTq0Tbm8t7wpiyVccGt 15w1v3nv6AFIpgvX8Exh6es4aqDaTw5ujS0A6Qrwqb 9c10HOeg1c5JvcnC3bcXE+nBCo5qcPk56mEg/cNf84WE/PsvuV51UqpDSRJtHypfEDPNYb5GJhKxgooK 3rN57dAVh/vGSvEpf/kBhTx1n6Q/WF/KcHs5HPtp38Md8A6/zBLOgOXB7WWqkWPaNa3D1tdSdtdcK7Pa KtwAgtTkKNqkPyIhaUJh5Kb+PWOrB+c9Tl6Ukv81Kf 5iqj9hqUCn7NEfwAE+MFqSRZgqpFG4Jm7gJcuIs7QaYFny23hJ+df6tuWr0OfnrlRk173g5796l8+k72 Sv1+ry70l4qc8loXOwRE3/47uG3aXT/a8K/2U++F/TxjG457kl7QlOY55TGpjrrUB4lGo7ZIGb8d7uSs oD9Usw0ipq8P20Z/hvs13K/ylodnz9s7YEgU1wAz65 432wz7Vxqh+Mi8MSHTQ/9qw7/a8K82/KsN/4uCq9yqc/ao9++aY4YVCgQWH4gcduapcukf9koYHJooT0 nnvRowxvPqwLVOuFetb+c0s0S0cLGUvdnaN2JLfgFNsYU0Z+EVkHU9RD20374l9Vi/own897P/8K82/K bp0L7zUj26g5+Qq6r3sv8b+VeyIafWc/Ww7I82pZop Mq03cfLSrtXpKM6BYaxTo026+Ff+DAMAGE INSIDE ADJUSTER/6U/6wKr71QnmqEK0BUbbOI/AEXsCQi/Y7o6PefOdMh6WowEfV v3HrfJkWhxDy2SxQjs91Stb9u0g/Cj/KZa/m06Wv2w0aF3/QMR/7Ok3Am67r/NoZS8mx33lWEnl+yj67 4hnive+OEwgh1UKCFO4un46Wha+DqFCe3FIdwpt1M2 [place]/NjPkdgt3e97gvd2OxVi/WbZ3oF2JBhBg8x/FhdP+zVCX/bFc+ob0opPlX6pMOPCa2O3h1G/uHwn8 [file] BSCgo+JytwwIXmfGveNFYNAAIvJHPFZQTCF6E= ID Date Data Source [id number] 07/27/2020 07:09:09 AM EST [facility] Name Value Range Interpretation Code Description Data Ximena rce(s) Supporting Document(s) SODIUM 138 mmol/L (136-145) [facility] POTASSIUM 4.1 mmol/L (3.6-5.2) [facility] CHLORIDE 102 mmol/L (100-108) [facility] CO2 28 mmol/L (22-31) [facility] ANION GAP 8 mmol/L (7-16) [facility] UREA NITROGEN 33 mg/dL (7-24) H [facility] CREATININE 0.62 mg/dL (0.60-1.00) [facility] BUN/CREAT RATIO 53.2 RATIO (10.0-20.0) H [facility] GLUCOSE 116 mg/dL (70-99) H [facility] CALCIUM 8.9 mg/dL (8.4-10.2) [facility] GFR >60 ml/min/1.73m2 (>59) [facility] GFR ([facility] AM) >60 ml/min/1.73m2 (>59) [facility] GFR INTERPRETATION [facility] --NORMAL KIDNEY FUNCTION OR MILD DISEASE - GFR >OR= 60CHRONIC KIDNEY DISEASE - GFR 15 - 59RENAL FAILURE - GFR <15 Est. GFR calculation based on the MDRDstudy equation, which assumes a steadystate for creatinine. Est. GFR should notbe used for medication dosing. ID Date Data Source [id number] 07/27/2020 06:35:12 AM EST [facility] Name Value Range Interpretation Code Description Data Ximena rce(s) Supporting Document(s) WBC 6.3 10*3/uL (4.1-11.0) [facility] [place] RBC 3.75 10*6/uL (4.00-5.40) L [facility] HGB 11.2 g/dL (12.0-16.0) L [facility] HCT 32.0 % (36.0-47.0) L [facility] PERFORMED AT [address] [place] [address] N [place] [address] MCV 85.2 fL (80.0-95.0) [facility] MCH 29.7 pg (27.0-32.0) [facility] MCHC 34.9 g/dL (32.0-36.0) [facility] RDW 15.5 % (10.5-14.5) [facility] PLT 203 10*3/uL (150-450) [facility] MPV 7.4 fL (7.1-10.7) [facility] ID Date Data Source [id number] 07/26/2020 11:33:04 AM EST [facility] Name Value Range Interpretation Code Description Data Ximena rce(s) Supporting Document(s) APTT 24.9 s (22.0-34.3) [facility] ID Date Data Source [id number] 07/26/2020 11:33:04 AM EST [facility] Name Value Range Interpretation Code Description Data Ximena rce(s) Supporting Document(s) PT 10.6 s (9.2-11.9) [facility] BENITO INR 1.01 [facility] SUGGESTED THERAPEUTIC RANGES USING INR F ORSTABILIZED ANTICOAGULATED PATIENTS:STANDARD DOSE THERAPY INR 2.0-3.0 DVT, PE, PREVENT DVT OR EMBOLISMHIGH DOSE THERAPY INR 2.5-3.5 PREVENT EMBOLISM FROM MECHANICAL HEART VALVE ID Date Data Source [id number] 07/26/2020 10:25:03 AM EST [facility] INFORMATIONPatient MRN Name Date of Age Gend*PT [id number] Flora Mijares 1940 79 years F OBSPT Location Admission Date/Time Visit ID Attending [id number] 07/23/202045 --- Kai Dahl MD([id number]) EPI ID CSN Admitting Provider [id number] Pauline Hernandez MD([id number]) [facility] DISCHARGE SUMMARYPatient Name: Flora Mijares of : 1940 Age 79 yearsPrimary Physician: HELIO ZABALA MD PCP Cywlpavwo Date: 07/23/2020 Discharge Date:She will be discharged from [facility] Diagnoses:Principal Problem:Symptomatic bradycardia status post PPM [...] by mouth 2 (two) times a dayUmeclidinium Quincy (INCRUSE ELLIPTA) 62.5 MCG/INH AEPB Inhale 1 [...] mental status, speech normal, alert and oriented [id number]:Imaging:Chest x-ray post pacemaker placementIMPRESSION: No pneumothorax or [...] rce(s) Supporting Document(s) ID Date Data Source [id number] 07/26/2020 09:09:03 AM EST [facility] INFORMATIONPatient MRN Name Date of Age Gend*PT [id number] Flora Mijares 1940 79 years F OBSPT Location Admission Date/Time Visit ID Attending [id number] 07/23/202045 --- Kai Dahl MD([id number]) EPI ID CSN Admitting Provider [id number] Pauline Hernandez MD([id number]) [facility] DISCHARGE SUMMARYPatient Name: Flora Mijares of : 1940 Age 79 yearsPrimary Physician: HELIO ZABALA MD PCP Snbfsyfii Date: 07/23/2020 Discharge Date:She will be discharged from [facility] Diagnoses:Principal Problem:Symptomatic bradycardia status post PPM [...] by mouth 2 (two) times a dayUmeclidinium Quin[place] (INCRUSE ELLIPTA) 62.5 MCG/INH AEPB Inhale 1 [...] mental status, speech normal, alert and oriented [id number]:Imaging:Chest x-ray post pacemaker placementIMPRESSION: No pneumothorax or [...] rce(s) Supporting Document(s) ID Date Data Source [id number] 07/26/2020 06:49:[address] [facility] Name Value Range Interpretation Code Description Data Ximena rce(s) Supporting Document(s) EKG [facility] SKKNTj0kHgFDBwSpz5AtEoWmOFVjSV4hlfo6H5X0tIOkY0JcnCPht0ogE0PyF6FuTVHbGJYNDK1FnPHr jb2 [file] vL5SfRY4O+SYlDKxF6Qbj0Z9tGLtt3OmRi+DueF/YJmDgglN5Ge/dmWnxwImvFOvjUbhliCu30FD/senior hr manager 7asYw53fp56jo02jb22bh14uUa21Pbur/y3tYw8PN3XNq75Gk/2vBXG+tXG+tXG+sI55GOoQv7tps7Ve P17O447o3vz2tK81bov/W6w3/69Oenzhq4G1I0gneO [file] nSjvFBH4Dm4UjuIsUVIlUXPYFp2Ls320ISOhYMPDVuv+CtavsUIyhKvuMWLLWKWlDlMXNRACV8O= ID Date Data Source [id number] 07/26/2020 08:18:22 AM EST [facility] Name Value Range Interpretation Code Description Data Ximena rce(s) Supporting Document(s) SODIUM 138 mmol/L (136-145) [facility] POTASSIUM 3.8 mmol/L (3.6-5.2) [facility] CHLORIDE 101 mmol/L (100-108) [facility] CO2 28 mmol/L (22-31) [facility] ANION GAP 9 mmol/L (7-16) [facility] UREA NITROGEN 33 mg/dL (7-24) H [facility] CREATININE 0.81 mg/dL (0.60-1.00) [facility] BUN/CREAT RATIO 40.7 RATIO (10.0-20.0) [facility] GLUCOSE 100 mg/dL (70-99) H [facility] CALCIUM 8.6 mg/dL (8.4-10.2) [facility] GFR >60 ml/min/1.73m2 (>59) [facility] GFR ( AMER) >60 ml/min/1.73m2 (>59) [facility] GFR INTERPRETATION [facility] --NORMAL KIDNEY FUNCTION OR MILD DISEASE - GFR >OR= 60CHRONIC KIDNEY DISEASE - GFR 15 - 59RENAL FAILURE - GFR <15 Est. GFR calculation based on the MDRDstudy equation, which assumes a steadystate for creatinine. Est. GFR should notbe used for medication dosing. ID Date Data Source [id number] 07/26/2020 07:58:44 AM EST [facility] Name Value Range Interpretation Code Description Data Ximena rce(s) Supporting Document(s) WBC 6.1 10*3/uL (4.1-11.0) [facility] RBC 3.69 10*6/uL (4.00-5.40) L [facility] HGB 10.8 g/dL (12.0-16.0) L [facility] HCT 31.3 % (36.0-47.0) L [facility] PERFORMED AT [address] [place] [address] [place] [address] MCV 84.8 fL (80.0-95.0) [facility] MCH 29.2 pg (27.0-32.0) [facility] MCHC 34.4 g/dL (32.0-36.0) [facility] RDW 15.3 % (10.5-14.5) H [facility] PLT 209 10*3/uL (150-450) [facility] MPV 7.3 fL (7.1-10.7) [facility] ID Date Data Source [id number] 07/26/2020 05:49:[address] [facility] Name Value Range Interpretation Code Description Data Ximena rce(s) Supporting Document(s) EKG [facility] UWNJCl9oVyXPQgPud5XqBbCrITFzHO8zbwr1D6E5rXRpB2TuaKUot2ldK4DdK3LxDSNeIBKINM9CmSIv jb2 [file] CtQBIPM1Zpg5JhSIVvHPWLFp3+DeE8ZGR6oVIrNjm2KusdOKzvSXPIOk== ID Date Data Source [id number] 07/25/2020 04:10:21 PM EDT [facility] Name Value Range Interpretation Code Description Data Ximena rce(s) Supporting Document(s) TROPONIN I <0.05 ng/mL (<0.05) [facility] [place] Less than 0.05: Myocardial injury unlike lyGreater than or equal to 0.05: Highly suggestive of myocardial injuryCorrelation with rise and/or fall ofserial troponins, clinical symptomsand ECG changes is necessary. ID Date Data Source [id number] 07/25/2020 09:52:26 AM EDT [facility] INFORMATIONPatient MRN Name Date of Age Gend*PT [id number] Flora Mijares 1940 79 years F OBSPT Location Admission Date/Time Visit ID Attending ProviderD-[id number] 07/23/202045 --- Kai Dahl MD([id number]) EPI ID CSN Admitting Provider [id number] Pauline Hernandez MD([id number]) [facility] DISCHARGE SUMMARYPatient Name: Flora Mijares of : 1940 Age 79 yearsPrimary Physician: HELIO ZABALA MD PCP Cyyzvvchk Date: 07/23/2020 Discharge Date:She will be discharged from [facility] Diagnoses:Principal Problem:Symptomatic bradycardia status post PPM [...] by mouth 2 (two) times a dayUmeclidinium Quincy (INCRUSE ELLIPTA) 62.5 MCG/INH AEPB Inhale 1 [...] consulted she underwent PPM placementHer symptomatology improved significantlyShdwayne is now resuming beta-blockers post pacemaker placement [...] mental status, speech normal, alert and oriented o2Hgqsrkgsqat:Imaging:Chest x-ray post pacemaker placementIMPRESSION: No pneumothorax or [...] rce(s) Supporting Document(s) ID Date Data Source [id number] 07/25/2020 09:44:[address] [facility] Name Value Range Interpretation Code Description Data Ximena rce(s) Supporting Document(s) EKG [facility] XKMYAt8dFoPJYkGmj1TuIbIyQJFrMY0ilgb4L6K1nENhC4KlrIPso5sfB8YlB1VdGGJhXNDPDZ2CbOXt jb2 [file] Yagcfxgqxx+N2CDKOQr2KXtqtpyB664mwweLZZSRyI HHA0zaDPFzZ9p+xuyUWq3PkU+zfYGDQVhbZw3UlLsALLKnnRbICEGojH9eIOA54dTlL8ggpiVwsdaoNl JRIajYrD1ODXnObfEu/kHFnp4ZGOwjnkAVlnxnPOKTXLxU2LfQ3J+JWYwQ2HYVoouXqCTkH2rlPfTy+r YIjPMHBtEoikqiHJwI7WLcnrsKsEUTVFBltcXkY/pl Ur2fZtShY7PzdTxV0XYGtsiprKMgyr5dAB4/Gi1UZHCwWeqE9j6W5pibA/ZVgyZjdNJ79ASpePC2fQjd XjIhymJPE+kcvcKRQcOeW4xaxm1oCaeVhe13wnEHDmmJZeYJgoAJfQMgfCdnwqnyWwX1zGCuH+ndal/p 3UtTiOvISu+tpUmyyMhyyQmbOZj4pZLdKWw4NRzuSX u/zv+R1A/екатерина/ItXg+4ec8M+2G53j7DkXxrXu8+YeLd1g0IKeMG6DkxQT2oVSp4od8F+2+v+hszuK5WO [file] 5T9713J6L5llxB2S0/eM7y106VM1+4n55I4FkRfhuqsRo4ahn8//jsQ2b8K7ibPJUTd9g9GHn/5V4d04 /ycD0kxR9D8KU97CwnW8FvkFp243oj+jPwf6c+D5Bp 4v/EaNiK0V/hyQC/9qpH+VwdfcKl3wLpnGKQ1Rf/4GC31fn7+RFanS3Uc8Z5oP3sH1f1mMv4Uy3kR9S4 edb+sJNPwZxXP+sVeR1z/2qq6f/kOfZe55FQxyS6ryRc1m6iwP3yraF0+/M+7M7U9y4ypT+LTzzHNOO5 /v+3kck83kmjW69j73yvI336BVbzqOTSfIW1KCcmkz Ws+9B1ls9n01yzkepq7bO6nr4r+y9cy4tn1B5OuPvqKdq5Qx1T552FEuPWacnarF0zbK/u5I5S87NCM9 jLnrOvlVKITjy781uEhrr6/f6S56XnE08a7k++0T/tUs/yp/u631Ed2DH/2r3Ec6/uaa2133xzo/z3Ho uy93+eoz/auV+2+fishery division chief/nuy12+5PkXqN772oYut90yWT jiGinWdwfPOurk14+Voom61TFFpc6/Leandro/R+zgY6/NBn2fvcPWW4firWZ3Omlaz+XxRz23yvBPsqhXAI [file] Rg== ID Date Data Source [id number] 07/25/2020 09:24:57 AM EDT [facility] Name Value Range Interpretation Code Description Data Ximena rce(s) Supporting Document(s) SODIUM 138 mmol/L (136-145) [facility] POTASSIUM 4.0 mmol/L (3.6-5.2) [facility] CHLORIDE 101 mmol/L (100-108) [facility] CO2 28 mmol/L (22-31) [facility] ANION GAP 9 mmol/L (7-16) [facility] UREA NITROGEN 18 mg/dL (7-24) [facility] CREATININE 0.61 mg/dL (0.60-1.00) [facility] BUN/CREAT RATIO 29.5 RATIO (10.0-20.0) H [facility] GLUCOSE 85 mg/dL (70-99) [facility] CALCIUM 8.9 mg/dL (8.4-10.2) [facility] GFR >60 ml/min/1.73m2 (>59) [facility] GFR ( AMER) >60 ml/min/1.73m2 (>59) [facility] GFR INTERPRETATION [facility] --NORMAL KIDNEY FUNCTION OR MILD DISEASE - GFR >OR= 60CHRONIC KIDNEY DISEASE - GFR 15 - 59RENAL FAILURE - GFR <15 Est. GFR calculation based on the MDRDstudy equation, which assumes a steadystate for creatinine. Est. GFR should notbe used for medication dosing. ID Date Data Source [id number] 07/25/2020 09:03:05 AM EDT [facility] Name Value Range Interpretation Code Description Data Ximena rce(s) Supporting Document(s) WBC 7.4 10*3/uL (4.1-11.0) [facility] [place] RBC 4.04 10*6/uL (4.00-5.40) [facility] HGB 12.2 g/dL (12.0-16.0) [facility] HCT 35.2 % (36.0-47.0) L [facility] PERFORMED [place] [address] [place] [address] MCV 87.3 fL (80.0-95.0) [facility] MCH 30.1 pg (27.0-32.0) [facility] MCHC 34.5 g/dL (32.0-36.0) [facility] RDW 15.1 % (10.5-14.5) H [facility] PLT 218 10*3/uL (150-450) [facility] MPV 7.2 fL (7.1-10.7) [facility] ID Date Data Source [id number] 07/24/2020 09:36:55 PM EDT [facility] INFORMATIONPatient MRN Name Date of Age Gend*PT [id number] Flora Mijares 1940 79 years F OBSPT Location Admission Date/Time Visit ID Attending ProviderD-[id number] 07/23/202045 --- Kai Dahl MD([id number]) EPI ID CSN Admitting Provider [id number] Pauline Hernandez MD([id number])INPATIENT EP CONSULT NOTEPatient Name: Flora Mijares of : 1940 Age: 79 yearsGender: female Primary Physician: FAMILIA VANCEate of Referral: 07/24/2020 PCP [id number] PHYSICIAN: Facundo Arana M.D.REASON FOR REFFERAL: SSSHISTORY [...] sleep apnea) Palpitations 04/22/2019 Peripheral vascular disease HUMANITIES COORDINATOR to renal artery Pharmacologic SPECT 05/10/2019 No [...] 07/13/2016 Seizure Spirometry 09/2017 96% FVC, 77% [id number] SURGICAL HISTORY:Past Surgical History:Procedure Laterality Date APPENDECTOMY APPENDECTOMY N/A 03/23/2019 Procedure: APPENDECTOMY LAPAROSCOPY; Surgeon: Ilan Glasgow MD; Laterality:N/A; 1638 03/23/19 CARDIAC CATHETERIZATION N/A 11/14/2017 Procedure: Cardiac catheterization; Surgeon: Nneka Lewis MD; Laterality:N/A; CARDIAC CATHETERIZATION N/A 11/14/2017 Procedure: Angioplasty-coronary; Surgeon: Nneka Lewis MD; Laterality:N/A; CARDIAC SURGERY COLONOSCOPY CORONARY ANGIOPLASTY WITH STENT PLACEMENT CORONARY ARTERY BYPASS GRAFT 2002 EYE SURGERY HERNIA REPAIR renal stents right [...] normalPERTINENT LABS:Results from last 7 daysLab Units [id number] g/dL 12.6 13.3HEMATOCRIT % 36.0 39.5PLATELETS 10*3/uL 225 251SODIUM mmol/L 136 135*POTASSIUM mmol/L 4.0 3.9CHLORIDE mmol/L 100 99*CO2 mmol/L 27 27BUN mg/dL 19 20CREATININE mg/dL 0.61 0.65GLUCOSE mg/dL 86 81CALCIUM mg/dL 8.5 9.0DIAGNOSTIC DATA:I personally reviewedEKG: denise atrial rhythm, RBBBTele: low atrial rhythm, sinus bradyFINAL DIAGNOSES:1. Pre-Syncope2. SSS3. RBBB4. CABG x5 in . hypertension, hyperlipidemia,6. COPD on home Y3Eocqsnylte:he patient presents with symptomatic bradycardia, as evidenced [...] heart attack, stroke, oreven .Facundo Arana M.D., [facility], RSClinical Cardiac Quylhcjyzlpiddkoz31/30/2020 3:56 PM Name Value Range Interpretation Code Description Data Ximena rce(s) Supporting Document(s) ID Date Data Source [id number] 07/24/2020 07:11:50 PM EDT [address] [address]Ihxuhoc Name: FLORA MIJARESB: 2Sex: FOrdering Provider: Rene Malcolm Prov: Rene CATHRYNRefkristine Provider: Procedure Performed: XR CHEST PORTABLEExam Date: 07/24/2020 19:08MRN: [id number] Number: [id number] Class: OutpatientAccount #: [id number] for Exam: ppmTechnique: AP portable view obtained.Comparison: July 23, 2020Findings: Pacemaker right chest wall with leads extending to the right atrium and right ventricle.No pneumothorax or pleural effusion.Poor inflation with mild left basilar atelectasis.Sternal wires and surgical clips overlie the mediastinum.The bones are osteopenic.IMPRESSION: No pneumothorax or pleural effusion detected after pacemaker placement.Report electronically signed by: KELLI MORE On 07/24/2020 7:11 PMWorkstation ID: [id number] Name Value Range Interpretation Code Description Data Ximena rce(s) Supporting Document(s) ID Date Data Source [id number] 07/24/2020 06:12:[address] [facility] Name Value Range Interpretation Code Description Data Ximena rce(s) Supporting Document(s) &PDF [facility] OUWGEp7cPtMQGlIk05/QCPydKHVdd6HrSUqrMJe1ZLxfREYxT6PfzKctBDyTPsvFUG6jLGHXMM5aPJBk waW [file] r1D77goATxXAatNI4PUNF+Yvan+Yx9RHCOrHCMhECKrNnIlNQHRQzVqV8WtI7EWu8HeJ8JaBD78cIytcf OlWWayWZ5YVJ0oEZMnKYWEVV1YmMWznG9mmkD0MFRi JVDNMyPbS32cmDHwODHnHOE9VKWoDm1QFGUsC2QqtmLtmEdhinGmSBZyBVWQZX7ENJknngAgkIQtmDly XK82hPmuGC4TPu7WKrOsTB0sat8MpGUuNl6BVSO9CZ7HVITzKZFiWNItRYP4KHJtFlYjLUckJARmWZBp NJF2QBJcZLJyVY6JKeOaQHFdPYB4ZKjxQNBvRJXnhf 6AYKDkXKM8UOO9HJDoCXOgIHKkUGkaAIHcEDZwBTs8KULrLMNqII9NNfEdPYNeGIK1NUIzTVLxOFZcya 5XKEXwBVJ4CHd6NCRqVAXrRFBeOUqbFMHjPII4TFTcAHMwLYMbPH8ZPrNtGWBqVHqvLUIoDCAnUNTcms 4QGPXqHWO1JUR0DJJhRZMrIFCkPDsaQDRyRVC8BpZ0 CZQqVPRhWE6BYkAgJWMbBQv7QYBuLXJfCDNduj1SSRLrAYO6SJn9RnPsTNYtASVmGNzgWRIdHBIjIMBd WWZdTEKrID2UDjJkVENvTHPhDuBpYCZmPBVqgd8QZKTdMIX7AQW5TSIhCJWrXRWePJwaYJDhLWWoXaX5 PSJdUPCoLJ2KMbWsERWaYBF5VuCaVOMaYKOgal5ERG IdXVG1RFn7ZvDpXZTsDPMvXGqdBULgXJJhNYniAQZlPFOsLH2VHsFsUZVsTMK3WZwwSNUnHVWpup2YTI IpMSGsEsP7VKWpDHGdGDYfQWseBQNtUWA6Tqu1WFCiFWHfUJ2BStCnHSGuIDzgOmOvCKNjZXUbeo1UOF YkGHKcIIAnHATwSJWbSQHyFZrzAELmVEVbHKk3NRZl HGStQX2OGlLiGJKrGRSdQLLvNUIsZBCnrl8SSGTaUTXtHFP4OABmYGWxHZMeJWskKXOqCCScZIH6DYGf BIGmZA3GPuQqOAJbBOG7FbzwZZDnKCDzwi8JGERzTVGcOAlvXvDqVPNzADIiEZrgWVFfXHEgLVX9IERm ULApCE0HRjBvNARtWhM4CQypJDZqWUMunr3ZWXSpER OhQUZcNvKqCGTfQSAaMXyeCHPrDWY0UeO0WOXkIVBdOD1RMuEcGJFwAeY1TISaJMDzRILpdm3NZLXqCO AkNLj9XFKhWEJtGUVmKYwjTZKfLQJ1HJhiPNDbOKKkYV0YPqCnIKFmOmIzOCdiTMKtWRKtpc6MCASfTT OxIvYbGUEgBNMzSRQeBKobWJQpBPM8ClnrVOLgLECu WQ4SZiIbRSYmJsh8YOAjLGTiTHRptd6ITGVdGOL2DaEnKUVmTWGrXBWyJZvdKPKiZIQ1YXf0GCRlMGTs FQ3QBdCsDARlGCcfBZbwQROiQYRpft1SPFAeZZW8YJocXHEmJBAwYHHvJIssHBHtLJE3XMppJLDeFYIy FD1UFxDzMJWlDVWbATgxOSNyVHPewe5JfJImyCkhot 7ULWpDTg7TdFqaROX3GMkkIj2wxLN9QoQfMFVXFo9HcuSsGXHbGTDAQThaSUEbNGCkLlG5NKDmLfZiST EzULH8H5G2CykmTJKgHpSkNLb0UdZ0JXQ4WEz4K9VwKaK8UsD1RuG3KSAfNPTyBlEvDjWlOLC+IF0gDQ o+Nd8It8YnauD5baHsPKv1UWJ0ON7XHQFPZ5HPNb== ID Date Data Source [id number] 07/24/2020 09:26:04 AM EDT [facility] INFORMATIONPatient MRN Name Date of Age Gend*PT [id number] Flora Mijares 1940 79 years F OBSPT Location Admission Date/Time Visit ID Attending ProviderD-[id number] 07/23/202045 --- Kai Dahl MD([id number]) EPI ID CSN Admitting Provider [id number] Pauline Hernandez MD([id number])Cardiology History and PhysicalName: Flora Mijares Gender: femaleDate of : 1940 Age: 79 yearsDate/Time of Admit: 07/23/2020 8:46 PM Code Status: DNR (Do NOT attempt CPR)Primary Care ProviderReferring Physician: ALBERT ALVARES, Colton Dahl, [facility] Complaint: Chest painReason for consult: BradycardiaHPI: 79-year-old [...] sleep apnea) Palpitations 04/22/2019 Peripheral vascular disease HUMANITIES COORDINATOR to renal artery Pharmacologic SPECT 05/10/2019 No angina or arrhythmia with stress. Perfusion study shows infarction. Cannotrule out that small fixed defect in inferior basal is d/t attenuation. LEVF 58%.Suggestive of RV enlargement and septal wall motion abnormality. These suggestpresence of pulmonary HTN. 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 [...] mouth 2 (two) times a day Umeclidinium Quincy (INCRUSE ELLIPTA) 62.5 MCG/INH AEPB Inhale 1 [...] normal saline flush 3 mL Intravenous Q8H [facility] normal saline flush 3 mL Intravenous Q8H [facility] oxybutynin 5 mg Oral BID pregabalin 150 [...] clubbing and no edema.DiagnosticsABGs:Lab ResultsComponent Value Date G1PQJZVU VENT 03/23/2019 POCSOURCE ARTERIAL 03/23/2019 POCFIO2 40 [...] results found for: POCTROPTSH:No results found for: Y7AVQVUTT: marked sinus bradycardia, RBBBAssessment and PlanPrincipal Problem: Chest painActive Problems: Pulmonary HTN COPD (chronic obstructive pulmonary disease) Neuropathy TODD (obstructive sleep apnea) Pulmonary hypertension Gastroesophageal reflux disease Cardiomegaly Bradycardia History of stent insertion of renal artery RBBB Supplemental oxygen dependent Seizure Yzoukgqhnyekoh33-jgof-rmo lady with sick sinus syndrome new right [...] aspirin calcium channelblocker [place] inhibitors and statins.Signature: FAMILIA Kulkarniate: July 24, 2020Time: 8:40 AM Name Value Range Interpretation Code Description Data Ximena rce(s) Supporting Document(s) ID Date Data Source [id number] 07/24/2020 08:20:[address] [facility] Name Value Range Interpretation Code Description Data Ximena rce(s) Supporting Document(s) EKG [facility] AWYNBb9iTlWHHtWxz6IuOjUxKAZyTT5lktv0D4G8sRJpP6KoeKXdv4dwL5SnI9YfZXYmDWAYFT8GmLDt jb2 [file] 1YiNixZiG63o5E8gW8FPKxrTH2Nhh4shW+0v8d+SUPPLY CHAIN INTERN [file] jmZ3taSjBvEyShC4PsLpXL0O ID Date Data Source [id number] 07/24/2020 07:47:42 AM EDT [address] [address]Tuomgrx Name: FLORA MIJARESDOB: 2Sex: FOrdering Provider: SHERI VASQUEZuthzenaida Prov: SHERI LUZARefersara Provider: Procedure Performed: XR CHEST PORTABLEExam Date: 07/23/2020 22:03MRN: [id number] Number: [id number] Class: OutpatientAccount #: [id number] for Exam: chest painTechnique: AP portable view obtained.Comparison: March 23, 2019Findings: Lungs are clear. Patient is status post median sternotomy. There are no pleural effusions. Mediastinal contours are unremarkable.IMPRESSION: No acute disease in the chest.Report electronically signed by: MARISA MCCLENDON On 07/24/2020 7:47 AMWorkstation ID: [id number] - [id number] Name Value Range Interpretation Code Description Data Ximena rce(s) Supporting Document(s) ID Date Data Source [id number] 07/24/2020 06:05:39 AM EDT [facility] Name Value Range Interpretation Code Description Data Ximena rce(s) Supporting Document(s) SODIUM 136 mmol/L (136-145) [facility] POTASSIUM 4.0 mmol/L (3.6-5.2) [facility] CHLORIDE 100 mmol/L (100-108) [facility] CO2 27 mmol/L (22-31) [facility] ANION GAP 9 mmol/L (7-16) [facility] UREA NITROGEN 19 mg/dL (7-24) [facility] CREATININE 0.61 mg/dL (0.60-1.00) [facility] BUN/CREAT RATIO 31.1 RATIO (10.0-20.0) H [facility] GLUCOSE 86 mg/dL (70-99) [facility] CALCIUM 8.5 mg/dL (8.4-10.2) [facility] GFR >60 ml/min/1.73m2 (>59) [facility] GFR ( AMER) >60 ml/min/1.73m2 (>59) [facility] GFR INTERPRETATION [facility] --NORMAL KIDNEY FUNCTION OR MILD DISEASE - GFR >OR= 60CHRONIC KIDNEY DISEASE - GFR 15 - 59RENAL FAILURE - GFR <15 Est. GFR calculation based on the MDRDstudy equation, which assumes a steadystate for creatinine. Est. GFR should notbe used for medication dosing. ID Date Data Source [id number] 07/24/2020 05:31:30 AM EDT [facility] Name Value Range Interpretation Code Description Data Ximena rce(s) Supporting Document(s) WBC 6.1 10*3/uL (4.1-11.0) [facility] [place] RBC 4.24 10*6/uL (4.00-5.40) [facility] HGB 12.6 g/dL (12.0-16.0) [facility] HCT 36.0 % (36.0-47.0) [facility] PER[facility] AT [address] [place] [address] [place] [address] MCV 84.9 fL (80.0-95.0) [facility] MCH 29.8 pg (27.0-32.0) [facility] MCHC 35.1 g/dL (32.0-36.0) [facility] RDW 15.1 % (10.5-14.5) H [facility] PLT 225 10*3/uL (150-450) [facility] MPV 7.1 fL (7.1-10.7) [facility] ID Date Data Source [id number] 07/24/2020 01:36:13 AM EDT [facility] INFORMATIONPatient MRN Name Date of Age Gend*PT [id number] Flora Mijares 1940 79 years F OBSPT Location Admission Date/Time Visit ID Attending ProviderD-[id number] 07/23/202045 --- Kai Dahl MD([id number]) EPI ID CSN Admitting Provider [id number] Pauline Hernandez MD([id number]) Attestation signed by Pauline Hernandez MD at 07/24/2020 1:36 AMPlan of care discussed. Agree with H&P by Sheri Gama NP.Signature: FAMILIA Osullivanate: July 24, 2020Time: 1:35 AM ADMISSION HISTORY AND PHYSICALName: Flora Mijares Gender: femaleDate of : 1940 Age: 79 yearsDate/Time of Admit: 07/23/2020 8:46 PM Code Status: Full CodePrimary Care Provider / Referring Physician: ALBERT ALVARES NPInformant:Current HistoryChief Complaint: Patient transfers from [facility] for evaluation of chestpain in the setting of known CAD and multiple PCI including CABG in 2001HPI:This patient is a 79 years female with medical history of CAD (s/p multiple PCIincluding: Last [facility] October 2017 which revealed patent ESPINOSA to LAD and patentstents in the right and left circumflex and LAD; she is status post CABGX5 [id number]). Echocardiogram May 2019 showed normal LV size with mild LVH andpreserved LV systolic function. Grade 1 diastolic dysfunction, mild pulmonaryhypertension, and severe left atrial enlargement. She also has a history ofhypertension, hyperlipidemia, COPD/TODD//nocturnal oxygen, GERD and duodenalulcer bleeding s/p transfusion, obesity. [facility] [place] [place] of [facility] [place]Patient reports that during [...] [place]Work-up in [facility] was as follows:Chest x-ray: No focal cons [...] in the past. 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 Perfusion study shows infarction. Cannotrule out that small fixed defect in inferior basal is d/t attenuation. LEVF 58%.Suggestive of RV enlargement and septal wall motion abnormality. These suggestpresence of pulmonary HTN. 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 [facility] unrevealing [facility].Chest painPresently offers no anginal complaint sEKG on admission is noted to marked sinus bradycardia with RBBB which appears gagan new as compared to prior EKG from 2018, ?possibly a wondering atrialpacemakerShe offers no anginal complaintsTroponin was negative in [place] and repeat here is negativeHer last pharmacologic [...] RepathaCoronary artery diseases/p multiple PCI including: Last [facility] October 2017 which revealed patent ESPINOSA toLAD [...] additional timespent separate from the hospital visit.D/W : Sheri Gama, NPDate: July 23, 2020Time: 11:20 PM Name Value Range Interpretation Code Description Data Ximena rce(s) Supporting Document(s) ID Date Data Source [id number] 07/24/2020 12:34:00 AM EDT [facility] Patient: FLORA MIJARES Observation Re port - [facility].VisitID: [id number] [place] [address] [phone], FRegistration Date/Time: 07/23/2020 15:41 Weight:74.8 kg (S). Height/Length:61 inches (S). BMI:31.2 FAMILY HISTORYFather: Cancer, Hypertension. Mother: Diabetes Mellitus. (Electronically signed by Ivory Lozada P.A. 07/23/2020 19:20) Name Value Range Interpretation Code Description Data Ximena rce(s) Supporting Document(s) ID Date Data Source [id number] 07/24/2020 12:59:25 AM EDT [facility] [place] [facility] Name Value Range Interpretation Code Description Data Ximena rce(s) Supporting Document(s) TROPONIN I <0.05 ng/mL (<0.05) [facility] [place] [facility] [place] Less than 0.05: Myocardial injury unlike lyGreater than or equal to 0.05: Highly suggestive of myocardial injuryCorrelation with rise and/or fall ofserial troponins, clinical symptomsand ECG changes is necessary. ID Date Data Source [id number] 07/23/2020 10:13:07 PM EDT [facility] [place] [facility] Name Value Range Interpretation Code Description Data Ximena rce(s) Supporting Document(s) HEMOGLOBIN A1C @ 5.9 % (4.0-6.0) [facility] Performed using Siem[employer] [place] immunoassa y.Care must be taken when interpreting [id number] in patients with a hemoglobin variantor decreased erythrocyte lifespan. Values 5.7 - 6.4% suggest prediabetes.Values >=6.5% are diagnostic for diabetes.REFERENCE: DIABETES CARE 2018: 41(S13-S27).PERFORMED AT [address] [place] [id number] EST AVERAGE GLUCOSE 123 mg/dL [facility]al[facility] ID Date Data Source [id number] 07/23/2020 11:27:32 PM EDT [facility] [place] [facility] Name Value Range Interpretation Code Description Data Ximena rce(s) Supporting Document(s) CHOLESTEROL @ 114 mg/dL (0-200) [facility] [place] [facility] TRIGLYCERIDE @ 94 mg/dL (30-200) [facility] [place] [facility] HDL CHOLESTEROL @ 46 mg/dL (>40) [facility] [place] [facility] PER NCEP ATP III GUIDELINES:RESULTS LOWE R [...] LDL CHOL (CALC) 49 mg/dL (<130) [facility] [place] [facility] PER NCEP ATP III GUIDELINES: OPTIMAL < 100 NEAR OPTIMAL 100 - 129BORDERLINE HIGH 130 - 159 HIGH 160 - 189 VERY HIGH > 189 ID Date Data Source [id number] 07/23/2020 10:41:28 PM EDT Lab [facility] SPEC EXP DATE 07/26/2020PATI ENT ABO/Rh O NEGATIVEANTIBODY SCREEN NEGATIVETESTING SITE PERFORMED AT [address] [place] [id number] Name Value Range Interpretation Code Description Data Ximena rce(s) Supporting Document(s) TYPE AND SCREEN [facility] [place] [facility] PATIENT ABO/Rh O NEGATIVE ID Date Data Source [id number] 07/23/2020 10:08:32 PM EDT [facility] Name Value Range Interpretation Code Description Data Ximena rce(s) Supporting Document(s) TSH,ULTRASENSITIVE @ 1.605 mIU/L (0.360-4.170) [facility] [place] [facility] PERFORMED AT [address] [place] [address] Y [id number] ID Date Data Source [id number] 07/23/2020 10:08:32 PM EDT [facility] Name Value Range Interpretation Code Description Data Ximena rce(s) Supporting Document(s) NT PRO BNP 399 pg/mL (0-450) Lab [facility] ID Date Data Source [id number] 07/23/2020 10:08:32 PM EDT Lab [facility] Name Value Range Interpretation Code Description Data Ximena rce(s) Supporting Document(s) TROPONIN I <0.05 ng/mL (<0.05) [facility] [place] [facility] [place] Less than 0.05: Myocardial injury unlike lyGreater than or equal to 0.05: Highly suggestive of myocardial injuryCorrelation with rise and/or fall ofserial troponins, clinical symptomsand ECG changes is necessary. ID Date Data Source [id number] 07/23/2020 10:08:32 PM EDT [facility] [place] [facility] Name Value Range Interpretation Code Description Data Ximena rce(s) Supporting Document(s) SODIUM 135 mmol/L (136-145) L [facility] [place] [facility] POTASSIUM 3.9 mmol/L (3.6-5.2) [facility] [place] [facility] CHLORIDE 99 mmol/L (100-108) L [facility] [place] [facility] CO2 27 mmol/L (22-31) [facility] [place] [facility] ANION GAP 9 mmol/L (7-16) [facility] [place] [facility] UREA NITROGEN 20 mg/dL (7-24) [facility] [place] [facility] CREATININE 0.65 mg/dL (0.60-1.00) [facility] [place] [facility] BUN/CREAT RATIO 30.8 RATIO (10.0-20.0) H [facility] GLUCOSE 81 mg/dL (70-99) [facility] [place] [facility] CALCIUM 9.0 mg/dL (8.4-10.2) [facility] [place] [facility] TOTAL PROTEIN 7.0 g/dL (6.4-8.2) [facility] [place] [facility] ALBUMIN 3.9 g/dL (3.2-4.5) [facility] [place] [facility] GLOBULIN 3.1 g/dL (2.7-4.3) [facility] [place] [facility] ALB/GLOB RATIO 1.3 RATIO [facility] [place] [facility] ALKALINE PHOSPHATASE 70 U/L (45-117) [facility] BILIRUBIN,TOTAL 0.5 mg/dL (0.0-1.0) [facility] [place] [facility] PLEASE NOTE:Total bilirubin results may be falselyelevated in patients taking Eltrombopag. AST (SGOT) 23 U/L (11-39) [facility] [place] [facility] ALT (SGPT) 31 U/L (12-78) [facility] [place] [facility] GFR >60 ml/min/1.73m2 (>59) [facility] [place] [facility] GFR ( AMER) >60 ml/min/1.73m2 (>59) Lab [facility] GFR INTERPRETATION Lab [facility] e of JIGNA --NORMAL KIDNEY FUNCTION OR MILD DISEASE - GFR >OR= 60CHRONIC KIDNEY DISEASE - GFR 15 - 59RENAL FAILURE - GFR <15 Est. GFR calculation based on the MDRDstudy equation, which assumes a steadystate for creatinine. Est. GFR should notbe used for medication dosing. ID Date Data Source [id number] 07/23/2020 09:57:53 PM EDT [facility] [place] luciana [facility]ENIT[facility] Name Value Range Interpretation Code Description Data Ximena rce(s) Supporting Document(s) MAGNESIUM 2.1 mg/dL (1.7-2.4) [facility] [place] [facility] ID Date Data Source [id number] 07/23/2020 09:45:21 PM EDT [facility] [place] [facility] Name Value Range Interpretation Code Description Data Ximena rce(s) Supporting Document(s) APTT 24.6 s (22.0-34.3) [facility] [place] Alyx Chaierz ID Date Data Source [id number] 07/23/2020 09:45:21 PM EDT [facility] [place] [facility] Name Value Range Interpretation Code Description Data Ximena rce(s) Supporting Document(s) PT 10.5 s (9.2-11.9) [facility] [place] [facility] INR 1.00 Lab Lisa SUGGESTED THERAPEUTIC RANGES USING INR F ORSTABILIZED ANTICOAGULATED PATIENTS:STANDARD DOSE THERAPY INR 2.0-3.0 DVT, PE, PREVENT DVT OR EMBOLISMHIGH DOSE THERAPY INR 2.5-3.5 PREVENT EMBOLISM FROM MECHANICAL HEART VALVE ID Date Data Source [id number] 07/23/2020 09:33:10 PM EDT Lab [facility] Name Value Range Interpretation Code Description Data Ximena rce(s) Supporting Document(s) WBC 7.3 10*3/uL (4.1-11.0) [facility] [place] [facility] [place] RBC 4.56 10*6/uL (4.00-5.40) [facility] [place] [facility] HGB 13.3 g/dL (12.0-16.0) [facility] [place] [facility] HCT 39.5 % (36.0-47.0) [facility] [place] [facility] PERFORMED AT [address] [place] [address] [place] [address] MCV 86.6 fL (80.0-95.0) [facility] [place] [facility] MCH 29.3 pg (27.0-32.0) [facility] [place] [facility] MCHC 33.8 g/dL (32.0-36.0) [facility] [place] [facility] RDW 15.3 % (10.5-14.5) H [facility] [place] [facility] PLT 251 10*3/uL (150-450) [facility] [place] [facility] MPV 6.9 fL (7.1-10.7) L [facility] [place] [facility] NEUT % 67.9 % (35.0-75.0) [facility] [place] [facility] LYMPH % 19.2 % (16.0-52.0) [facility] [place] [facility] MONO % 10.9 % (0.0-8.0) H [facility] [place] [facility] EOS % 1.2 % (0.0-5.0) [facility] [place] [facility] BASO % 0.8 % (0.0-4.0) [facility] [place] [facility] NEUT # 4.9 10*3/uL (1.8-7.7) [facility] [place] [facility] LYMPH # 1.4 10*3/uL (1.2-4.8) [facility] [place] [facility] MONO # 0.8 10*3/uL (0.0-0.8) [facility] [place] [facility] Eosinophils [#/volume] in Blood by Automated count 0.1 10*3/uL (0.0-0 .5) [facility] [place] [facility] BASO # 0.1 10*3/uL (0.0-0.2) [facility] [place] [facility] ID Date Data Source [id number] 07/23/2020 05:01:00 PM EDT [facility] [...] rce(s) Supporting Document(s) ID Date Data Source [id number] 07/23/2020 05:00:00 PM EDT [facility] Name Value Range Interpretation Code Description Data Ximena rce(s) Supporting Document(s) COVID-19 [facility] reported by [facility] Laboratory. ID Date Data Source [id number] 07/23/2020 05:45:00 PM EDT [facility] [id number] Name Value Range Interpretation Code Description Data Ximena rce(s) Supporting Document(s) COVID-19 NEGATIVE NEGATIVE [facility] Negative results should be treated as pr [...] are for the indentification of SARS-CoV-2 RNA. OcdOGFI-[id number]-5 RNA is generally detectable in respiratorysamples during the actue phase of infection. ID Date Data Source [id number] 07/23/2020 04:40:00 PM EDT [facility] [id number] Name Value Range Interpretation Code Description Data Ximena rce(s) Supporting Document(s) TROPONIN I < 0.017 ng/mL 0.0-0.056 [facility] ID Date Data Source [id number] 07/23/2020 04:40:00 PM EDT [facility] [id number] Name Value Range Interpretation Code Description Data Ximena rce(s) Supporting Document(s) LIPASE 82 U/L 73-393 [facility] ID Date Data Source [id number] 07/23/2020 04:40:00 PM EDT [facility] [id number] Name Value Range Interpretation Code Description Data Ximena rce(s) Supporting Document(s) GLUCOSE 103 mg/dL 74-106 [facility] BLOOD UREA NITROGEN 21 mg/dL 7-18 [facility] ital CREATININE 0.8 mg/dL 0.6-1.0 [facility] SODIUM 133 mmol/L 136-145 L [facility] POTASSIUM 4.3 mmol/L 3.5-5.1 [facility] CHLORIDE 96 mmol/L 98-107 L [facility] CO2 29 mmol/L 21-32 [facility] CALCIUM 9.1 mg/dL 8.5-10.1 [facility] ANION GAP 8.0 mmol/L 5-12 [facility] GLOMERULAR FILTRATION RATE 70 mL/min [facility] GFR IS CALCULATED IN mL/min/1.73m2 AGNIESZKA L FUNCTION: >90MILDLY DECREASED: 60-89MILDY TO MODERATELY DECREASED: 45-59 MODERATELY TO SEVERELY DECREASED: 30-44SEVERELY DECREASED: 15-29RENAL FAILURE: <15 AST 29 U/L 15-37 [facility] ALT 34 U/L 12-78 [facility] ALKALINE PHOSPHATASE 77 U/L 46-116 [facility] TOTAL BILIRUBIN 0.4 mg/dL 0.2-1.0 [facility] TOTAL PROTEIN 7.6 g/dl 6.4-8.2 [facility] ALBUMIN 4.0 gm/dL 3.4-5.0 [facility] ID Date Data Source [id number] 07/23/2020 04:34:00 PM EDT [facility] [id number] Name Value Range Interpretation Code Description Data Ximena rce(s) Supporting Document(s) PARTIAL THROMBOPLASTIN TIME 24.2 SECONDS 21.2-27.3 [facility] ID Date Data Source [id number] 07/23/2020 04:34:00 PM EDT [facility] [id number] Name Value Range Interpretation Code Description Data Ximena rce(s) Supporting Document(s) PROTHROMBIN TIME (PATIENT) 9.8 SECONDS 9.1-11.6 [facility] INR 0.94 0.87-1.06 [facility] ID Date Data Source [id number] 07/23/2020 04:25:00 PM EDT [facility] TSYSORDER [id number] Name Value Range Interpretation Code Description Data Ximena rce(s) Supporting Document(s) WHITE BLOOD COUNT 7.2 K/mm3 4.0-10.0 [facility] RED BLOOD COUNT 4.64 M/mm3 4.00-5.50 [facility] HEMOGLOBIN 13.2 gm/dL 12.0-16.0 [facility] HEMATOCRIT 40.1 % 36.0-48.8 [facility] MEAN CELL VOLUME 86.4 fl 80-96 [facility] MEAN CORPUSCULAR HEMOGLOBIN 28.4 pg 27.0-31.0 [facility] MEAN CORPUSCULAR HGB CONC 32.9 g/dl 32.0-36.0 [facility] RED CELL DISTRIBUTION WIDTH 14.8 % 10.0-14.5 H [facility] PLATELET COUNT 264 K/mm3 172-450 [facility] MEAN PLATELET VOLUME 9.4 fl 9.0-13.0 [facility] pital GRAN % 68.1 % 50-80.0 [facility] IG% 0.6 % 0.0-0.2 H [facility] LYMPH % 19.3 % 25.0-50.0 L [facility] MONO % 10.6 % 2.0-10.0 H [facility] EOS % 1.1 % 0-5.0 [facility] BASO % 0.3 % 0.0-2.0 [facility] GRAN # 4.9 K/mm3 2.0-8.00 [facility] IG# 0.0 K/mm3 0.0-0.2 [facility] LYMPH # 1.4 K/mm3 1.0-5.0 [facility] MONO # 0.8 K/mm3 0.10-1.20 [facility] EOS # 0.1 K/mm3 0.0-0.5 [facility] BASO # 0.0 K/mm3 0.0-0.2 [facility] ID Date Data Source [id number] 05/21/2020 02:15:00 PM EDT [facility] DATE OF EXAMINATION: 05/21/2020 13:11 EDT IMPRESSION: For a detailed report please refer to the software generated [employer]. Electronically signed in PS360 by: Ant Perez M.D. 05/21/2020 14:09 EDT Name Value Range Interpretation Code Description Data Ximena rce(s) Supporting Document(s) Procedure Social History Code Duration Value Status Description Data Source(s ) Smoking 05/25/2021 12:00:00 AM EDT Former Smoker completed Former Smoker eCW1 ([facility]) Smoking 05/25/2021 12:00:00 AM EDT Former Smoker completed Former Smoker eCW1 ([facility]) Smoking 05/25/2021 12:00:00 AM EDT Former Smoker completed Former Smoker eCW1 ([facility]) Smoking 05/25/2021 12:00:00 AM EDT Former Smoker completed Former Smoker eCW1 ([facility]) Smoking 05/25/2021 12:00:00 AM EDT Former Smoker completed Former Smoker eCW1 ([facility]) Smoking 05/25/2021 12:00:00 AM EDT Former Smoker completed Former Smoker eCW1 ([facility]) Smoking 05/11/2021 12:00:00 AM EDT Former Smoker completed Former Smoker eCW1 ([facility]) Smoking 05/11/2021 12:00:00 AM EDT Former Smoker completed Former Smoker eCW1 ([facility]) Smoking 05/11/2021 12:00:00 AM EDT Former Smoker completed Former Smoker eCW1 ([facility]) Smoking 05/10/2021 12:00:00 AM EDT Former Smoker completed Former Smoker eCW1 ([facility]) Smoking 04/08/2021 12:00:00 AM EDT Former Smoker completed Former Smoker eCW1 ([facility]) Smoking 04/08/2021 12:00:00 AM EDT Former Smoker completed Former Smoker eCW1 ([facility]) Smoking 04/08/2021 12:00:00 AM EDT Former Smoker completed Former Smoker eCW1 ([facility]) Smoking 04/08/2021 12:00:00 AM EDT Former Smoker completed Former Smoker eCW1 ([facility]) Smoking 04/08/2021 12:00:00 AM EDT Former Smoker completed Former Smoker eCW1 ([facility]) Smoking 04/08/2021 12:00:00 AM EDT Former Smoker completed Former Smoker eCW1 ([facility]) Alcohol intake 04/01/2021 12:00:00 AM EDT Current non-d maxx of alcohol (finding) completed Current non-drinker of alcohol (finding) [facility] Smoking 03/25/2021 12:00:00 AM EDT Former Smoker completed Former Smoker eCW1 ([facility]) Smoking 03/25/2021 12:00:00 AM EDT Former Smoker completed Former Smoker eCW1 ([facility]) Smoking 03/25/2021 12:00:00 AM EDT Former Smoker completed Former Smoker eCW1 ([facility]) Smoking 02/26/2021 12:00:00 AM EDT Former Smoker completed Former Smoker eCW1 ([facility]) Smoking 02/26/2021 12:00:00 AM EDT Former Smoker completed Former Smoker eCW1 ([facility]) Smoking 02/26/2021 12:00:00 AM EDT Former Smoker completed Former Smoker eCW1 ([facility]) Smoking 02/26/2021 12:00:00 AM EDT Former Smoker completed Former Smoker eCW1 ([facility]) Smoking 02/16/2021 12:00:00 AM EDT Former Smoker completed Former Smoker eCW1 ([facility]) Smoking 02/16/2021 12:00:00 AM EDT Former Smoker completed Former Smoker eCW1 ([facility]) Smoking 01/07/2021 12:00:00 AM EDT Former Smoker completed Former Smoker eCW1 ([facility]) Smoking 01/07/2021 12:00:00 AM EDT Former Smoker completed Former Smoker eCW1 ([facility]) Smoking 01/07/2021 12:00:00 AM EDT Former Smoker completed Former Smoker eCW1 ([facility]) Smoking 01/07/2021 12:00:00 AM EDT Former Smoker completed Former Smoker eCW1 ([facility]) Smoking 01/07/2021 12:00:00 AM EDT Former Smoker completed Former Smoker eCW1 ([facility]) Smoking 12/30/2020 12:00:00 AM EDT Former Smoker completed Former Smoker eCW1 ([facility]) Smoking 09/29/2020 12:00:00 AM EST Former Smoker completed Former Smoker eCW1 ([facility]) Smoking 09/29/2020 12:00:00 AM EST Former Smoker completed Former Smoker eCW1 ([facility]) Smoking 09/29/2020 12:00:00 AM EST Former Smoker completed Former Smoker eCW1 ([facility]) Smoking 09/29/2020 12:00:00 AM EST Former Smoker completed Former Smoker eCW1 ([facility]) Smoking 09/29/2020 12:00:00 AM EST Former Smoker completed Former Smoker eCW1 ([facility]) Smoking 09/29/2020 12:00:00 AM EST Former Smoker completed Former Smoker eCW1 ([facility]) Smoking 09/29/2020 12:00:00 AM EST Former Smoker completed Former Smoker eCW1 ([facility]) Smoking 09/29/2020 12:00:00 AM EST Former Smoker completed Former Smoker eCW1 ([facility]) Smoking 09/29/2020 12:00:00 AM EST Former Smoker completed Former Smoker eCW1 ([facility]) Smoking 07/30/2020 12:00:00 AM EST Former Smoker completed Former Smoker eCW1 ([facility]) Smoking 07/30/2020 12:00:00 AM EST Former Smoker completed Former Smoker eCW1 ([facility]) Smoking 07/30/2020 12:00:00 AM EST Former Smoker completed Former Smoker eCW1 ([facility]) Smoking 07/30/2020 12:00:00 AM EST Former Smoker completed Former Smoker eCW1 ([facility]) Smoking 07/30/2020 12:00:00 AM EST Former Smoker completed Former Smoker eCW1 ([facility]) Smoking 07/30/2020 12:00:00 AM EST Former Smoker completed Former Smoker eCW1 ([facility]) Smoking 07/30/2020 12:00:00 AM EST Former Smoker completed Former Smoker eCW1 ([facility]) Alcohol intake 07/28/2020 12:00:00 AM EST No completed [facility] Cigarette pack-years 07/28/2020 12:00:00 AM EST UNK completed [facility] Cigarettes smoked current (pack per day) - Reported 07/28/20 20 12:00:00 AM EST UNK completed [facility] Smoking 07/28/2020 12:00:00 AM EST Former smoker completed Former smoker [facility] Vital Signs ID Date Data Source UNK Name Value Range Interpretation Code Description Data Source(s) Body weight 148 [lb_av] 148 [lb_av] eCW1 ([facility]) Body height 61 [in_i] 61 [in_i] W1 ([facility]) Body mass index (BMI) [Ratio] 27.96 kg/m2 27.96 kg/m2 W1 ([facility]) Heart rate 66 /min 66 /min eCW1 ([facility]) Respiratory rate 18 /min 18 /min eCW1 ([facility]) Body temperature 98 [degF] 98 [degF] eCW1 ([facility]) Systolic blood pressure 156 mm[Hg] 156 mm[Hg] e CW1 ([facility]) Diastolic blood pressure 80 mm[Hg] 80 mm[Hg] eCW1 ([facility]) Body weight 144.12 [lb_av] 144.12 [lb_av] eCW1 ([facility]) Body height 61 [in_i] 61 [in_i] eCW1 ([facility]) Body mass index (BMI) [Ratio] 27.23 kg/m2 27.23 kg/m2 W1 ([facility]) Heart rate 70 /min 70 /min eCW1 ([facility]) Respiratory rate 18 /min 18 /min eCW1 ([facility]) Body temperature 98 [degF] 98 [degF] eCW1 ([facility]) Systolic blood pressure 103 mm[Hg] 103 mm[Hg] e CW1 ([facility]) Diastolic blood pressure 68 mm[Hg] 68 mm[Hg] eCW1 ([facility]) Body height 61 [in_i] 61 [in_i] eCW1 ([facility]) Body weight 145 [lb_av] 145 [lb_av] eCW1 ([facility]) Body mass index (BMI) [Ratio] 27.39 kg/m2 27.39 kg/m2 eCW1 ([facility]) Heart rate 60 /min 60 /min eCW1 ([facility]) Respiratory rate 18 /min 18 /min eCW1 ([facility]) Body temperature 97.3 [degF] 97.3 [degF] eCW1 ( [facility]) Systolic blood pressure 123 mm[Hg] 123 mm[Hg] e CW1 ([facility]) Diastolic blood pressure 58 mm[Hg] 58 mm[Hg] eCW1 ([facility]) Body weight 65.77 kg 65.77 kg eCW1 ([facility]) Diastolic blood pressure 80 mm[Hg] 80 mm[Hg] MEDENT ([facility]) Systolic blood pressure 130 mm[Hg] 130 mm[Hg] M EDENT ([facility]) Heart rate 72 /min 72 /min MEDENT ([facility]) Respiratory rate 16 /min 16 /min MEDENT ( [facility]) Body weight 152 [lb_av] 152 [lb_av] eCW1 ([facility]) Body height 61 [in_i] 61 [in_i] eCW1 ([facility]) Body mass index (BMI) [Ratio] 28.72 kg/m2 28.72 kg/m2 eCW1 ([facility]) Heart rate 65 /min 65 /min eCW1 ([facility]) Respiratory rate 18 /min 18 /min eCW1 ([facility]) Body temperature 98.0 [degF] 98.0 [degF] eCW1 ( [facility]) Systolic blood pressure 142 mm[Hg] 142 mm[Hg] e CW1 ([facility]) Diastolic blood pressure 60 mm[Hg] 60 mm[Hg] eCW1 ([facility]) Systolic blood pressure 120 mm[Hg] 120 mm[Hg] [facility] Diastolic blood pressure 66 mm[Hg] 66 mm[Hg] [facility] Heart rate 68 /min 68 /min [facility] Body weight 67.[address] [facility] Body mass index (BMI) [Ratio] 27.96 kg/m2 27.96 kg/m2 [facility] Oxygen saturation in Arterial blood by Pulse oximetry 94 % 94 % [facility] Body weight 151.2 [lb_av] 151.2 [lb_av] eCW1 ([facility]) Body height 61 [in_i] 61 [in_i] eCW1 ([facility]) Body mass index (BMI) [Ratio] 28.57 kg/m2 28.57 kg/m2 W1 ([facility]) Heart rate 63 /min 63 /min eCW1 ([facility]) Respiratory rate 18 /min 18 /min eCW1 ([facility]) Body temperature 97.1 [degF] 97.1 [degF] eCW1 ( [facility]) Systolic blood pressure 138 mm[Hg] 138 mm[Hg] e CW1 ([facility]) Diastolic blood pressure 74 mm[Hg] 74 mm[Hg] eCW1 ([facility]) Body weight 153.4 [lb_av] 153.4 [lb_av] eCW1 ([facility]) Body weight 69.5 kg 69.5 kg eCW1 ([facility]) Body height 61 [in_i] 61 [in_i] eCW1 ([facility]) Body mass index (BMI) [Ratio] 28.98 kg/m2 28.98 kg/m2 eCW1 ([facility]) Heart rate 67 /min 67 /min eCW1 ([facility]) Respiratory rate 18 /min 18 /min eCW1 ([facility]) Body temperature 98.6 [degF] 98.6 [degF] eCW1 ( [facility]) Systolic blood pressure 134 mm[Hg] 134 mm[Hg] e CW1 ([facility]) Diastolic blood pressure 62 mm[Hg] 62 mm[Hg] eCW1 ([facility]) Body weight 156.0 [lb_av] 156.0 [lb_av] eCW1 ([facility]) Body height 61 [in_i] 61 [in_i] eCW1 ([facility]) Body mass index (BMI) [Ratio] 29.47 kg/m2 29.47 kg/m2 eCW1 ([facility]) Heart rate 66 /min 66 /min eCW1 ([facility]) Respiratory rate 18 /min 18 /min eCW1 ([facility]) Body temperature 97.3 [degF] 97.3 [degF] eCW1 ( [facility]) Systolic blood pressure 131 mm[Hg] 131 mm[Hg] e CW1 ([facility]) Diastolic blood pressure 63 mm[Hg] 63 mm[Hg] eCW1 ([facility]) Systolic blood pressure 120 mm[Hg] 120 mm[Hg] M EDENT ([facility]) Diastolic blood pressure 70 mm[Hg] 70 mm[Hg] MEDENT ([facility]) Heart rate 76 /min 76 /min MEDENT ([facility]) Respiratory rate 16 /min 16 /min MEDENT ( [facility]) Body weight 161.2 [lb_av] 161.2 [lb_av] eCW1 ([facility]) Body weight 73.1 kg 73.1 kg eCW1 ([facility]) Body height 61 [in_i] 61 [in_i] eCW1 ([facility]) Body mass index (BMI) [Ratio] 30.46 kg/m2 30.46 kg/m2 eCW1 ([facility]) Heart rate 68 /min 68 /min eCW1 ([facility]) Respiratory rate 18 /min 18 /min eCW1 ([facility]) Body temperature 99.4 [degF] 99.4 [degF] eCW1 ( [facility]) Systolic blood pressure 118 mm[Hg] 118 mm[Hg] e CW1 ([facility]) Diastolic blood pressure 62 mm[Hg] 62 mm[Hg] eCW1 ([facility]) Body weight 159 [lb_av] 159 [lb_av] eCW1 ([facility]) Body height 61 [in_i] 61 [in_i] eCW1 ([facility]) Body mass index (BMI) [Ratio] 30.04 kg/m2 30.04 kg/m2 eCW1 ([facility]) Heart rate 60 /min 60 /min eCW1 ([facility]) Respiratory rate 19 /min 19 /min eCW1 ([facility]) Body temperature 97.8 [degF] 97.8 [degF] eCW1 ( [facility]) Systolic blood pressure 111 mm[Hg] 111 mm[Hg] e CW1 ([facility]) Diastolic blood pressure 70 mm[Hg] 70 mm[Hg] eCW1 ([facility]) Systolic blood pressure 134 mm[Hg] 134 mm[Hg] [facility] Diastolic blood pressure 82 mm[Hg] 82 mm[Hg] [facility] Heart rate 62 /min 62 /min [facility] Body height 154.[address] [facility] Body weight 77.[address] [facility] Body mass index (BMI) [Ratio] 32.31 kg/m2 32.31 kg/m2 [facility] Oxygen saturation in Arterial blood by Pulse oximetry 94 % 94 % [facility] Body weight 169.8 [lb_av] 169.8 [lb_av] eCW1 ([facility]) Body height 61 [in_i] 61 [in_i] eCW1 ([facility]) Body mass index (BMI) [Ratio] 32.08 kg/m2 32.08 kg/m2 eCW1 ([facility]) Heart rate 74 /min 74 /min eCW1 ([facility]) Respiratory rate 18 /min 18 /min eCW1 ([facility]) Body temperature 98 [degF] 98 [degF] eCW1 ([facility]) Systolic blood pressure 152 mm[Hg] 152 mm[Hg] e CW1 ([facility]) Diastolic blood pressure 80 mm[Hg] 80 mm[Hg] eCW1 ([facility]) Body height 154.[address] [facility] Systolic blood pressure 136 mm[Hg] 136 mm[Hg] [facility] Diastolic blood pressure 70 mm[Hg] 70 mm[Hg] [facility] Heart rate 76 /min 76 /min [facility] Oxygen saturation in Arterial blood by Pulse oximetry 96 % 96 % [facility] Body weight 78.[address] [facility] Body mass index (BMI) [Ratio] 32.57 kg/m2 32.57 kg/m2 [facility] Body weight 172 [lb_av] 172 [lb_av] eCW1 ([facility]) Body height 61 [in_i] 61 [in_i] eCW1 ([facility]) Body mass index (BMI) [Ratio] 32.50 kg/m2 32.50 kg/m2 W1 ([facility]) Heart rate 68 /min 68 /min eCW1 ([facility]) Respiratory rate 18 /min 18 /min eCW1 ([facility]) Body temperature 98 [degF] 98 [degF] eCW1 ([facility]) Systolic blood pressure 117 mm[Hg] 117 mm[Hg] e CW1 ([facility]) Diastolic blood pressure 70 mm[Hg] 70 mm[Hg] eCW1 ([facility]) Systolic blood pressure 140 mm[Hg] 140 mm[Hg] [facility] Diastolic blood pressure 62 mm[Hg] 62 mm[Hg] [facility] Heart rate 82 /min 82 /min [facility] Body height 154.[address] [facility] Body weight 79.[address] [facility] Body mass index (BMI) [Ratio] 33.07 kg/m2 33.07 kg/m2 [facility] Oxygen saturation in Arterial blood by Pulse oximetry 88 % 88 % [facility] Systolic blood pressure 130 mm[Hg] 130 mm[Hg] [facility] Diastolic blood pressure 57 mm[Hg] 57 mm[Hg] [facility] Heart rate 67 /min 67 /min [facility] Body temperature 36.83 Kenzie 36.83 Kenzie [facility] Respiratory rate 18 /min 18 /min [facility] Oxygen saturation in Arterial blood by Pulse oximetry 95 % 95 % [facility] Body height 154.[address] [facility] Body weight 78.[address] [facility] Body mass index (BMI) [Ratio] 32.80 kg/m2 32.80 kg/m2 [facility] Patient Treatment Plan of Care Planned Activity Planned Date Details Description Data Source (s) Acetaminophen 325 MG / Hydrocodone Bitartrate 10 MG Or al Tablet 07/08/2021 12:00:00 AM EDT eCW1 ([facility]) Acetaminophen 325 MG / Hydrocodone Bitartrate 10 MG Or al Tablet 07/08/2021 12:00:00 AM EDT eCW1 ([facility]) Levofloxacin 500 MG Oral Tablet 05/11/2021 12:00:00 AM EDT eCW1 ([facility]) Levofloxacin 500 MG Oral Tablet 05/11/2021 12:00:00 AM EDT eCW1 ([facility]) Levofloxacin 500 MG Oral Tablet 05/11/2021 12:00:00 AM EDT eCW1 ([facility]) Acetaminophen 325 MG / Hydrocodone Bitartrate 10 MG Or al Tablet 05/04/2021 12:00:00 AM EDT eCW1 ([facility]) Acetaminophen 325 MG / Hydrocodone Bitartrate 10 MG Or al Tablet 05/04/2021 12:00:00 AM EDT eCW1 ([facility]) Acetaminophen 325 MG / Hydrocodone Bitartrate 10 MG Or al Tablet 05/04/2021 12:00:00 AM EDT eCW1 ([facility]) Acetaminophen 325 MG / Hydrocodone Bitartrate 10 MG Or al Tablet 05/04/2021 12:00:00 AM EDT eCW1 ([facility]) Acetaminophen 325 MG / Hydrocodone Bitartrate 10 MG Or al Tablet 05/04/2021 12:00:00 AM EDT eCW1 ([facility]) Acetaminophen 325 MG / Hydrocodone Bitartrate 10 MG Or al Tablet 05/04/2021 12:00:00 AM EDT eCW1 ([facility]) Acetaminophen 325 MG / Hydrocodone Bitartrate 10 MG Or al Tablet 05/04/2021 12:00:00 AM EDT eCW1 ([facility]) Acetaminophen 325 MG / Hydrocodone Bitartrate 10 MG Or al Tablet 05/04/2021 12:00:00 AM EDT eCW1 ([facility]) Acetaminophen 325 MG / Hydrocodone Bitartrate 10 MG Or al Tablet 05/04/2021 12:00:00 AM EDT eCW1 ([facility]) Acetaminophen 325 MG / Hydrocodone Bitartrate 10 MG Or al Tablet 03/09/2021 12:00:00 AM EDT eCW1 ([facility]) Acetaminophen 325 MG / Hydrocodone Bitartrate 10 MG Or al Tablet 03/09/2021 12:00:00 AM EDT eCW1 ([facility]) Metronidazole 500 MG Oral Tablet 02/10/2021 12:00:00 AM EDT eCW1 ([facility]) Acetaminophen 325 MG / Hydrocodone Bitartrate 10 MG Or al Tablet 12/30/2020 12:00:00 AM EDT eCW1 ([facility]) Acetaminophen 325 MG / Hydrocodone Bitartrate 10 MG Or al Tablet 10/27/2020 12:00:00 AM EST eCW1 ([facility]) Acetaminophen 325 MG / Hydrocodone Bitartrate 10 MG Or al Tablet 10/27/2020 12:00:00 AM EST eCW1 ([facility]) Acetaminophen 325 MG / Hydrocodone Bitartrate 10 MG Or al Tablet 10/27/2020 12:00:00 AM EST eCW1 ([facility]) Acetaminophen 325 MG / Hydrocodone Bitartrate 10 MG Or al Tablet 10/27/2020 12:00:00 AM EST eCW1 ([facility]) Acetaminophen 325 MG / Hydrocodone Bitartrate 10 MG Or al Tablet 10/27/2020 12:00:00 AM EST eCW1 ([facility]) Acetaminophen 325 MG / Hydrocodone Bitartrate 10 MG Or al Tablet 10/27/2020 12:00:00 AM EST eCW1 ([facility]) Lisinopril 5 MG Oral Tablet 09/29/2020 12:00:00 AM EST eCW1 ([facility]) Lisinopril 5 MG Oral Tablet 09/29/2020 12:00:00 AM EST eCW1 ([facility]) Lisinopril 5 MG Oral Tablet 09/29/2020 12:00:00 AM EST eCW1 ([facility]) Lisinopril 5 MG Oral Tablet 09/29/2020 12:00:00 AM EST eCW1 ([facility]) Lisinopril 5 MG Oral Tablet 09/29/2020 12:00:00 AM EST eCW1 ([facility]) Lisinopril 5 MG Oral Tablet 09/29/2020 12:00:00 AM EST eCW1 ([facility]) Lisinopril 5 MG Oral Tablet 09/29/2020 12:00:00 AM EST eCW1 ([facility]) Lisinopril 5 MG Oral Tablet 09/29/2020 12:00:00 AM EST eCW1 ([facility]) Lisinopril 5 MG Oral Tablet 09/29/2020 12:00:00 AM EST eCW1 ([facility]) Lisinopril 5 MG Oral Tablet 09/29/2020 12:00:[address] [facility] Lisinopril 5 MG Oral Tablet 09/29/2020 12:00:00 AM EST eCW1 ([facility]) Lisinopril 5 MG Oral Tablet 09/29/2020 12:00:00 AM EST eCW1 ([facility]) Lisinopril 5 MG Oral Tablet 09/29/2020 12:00:00 AM EST eCW1 ([facility]) Lisinopril 5 MG Oral Tablet 09/29/2020 12:00:00 AM EST eCW1 ([facility]) Lisinopril 5 MG Oral Tablet 09/29/2020 12:00:00 AM EST eCW1 ([facility]) Lisinopril 5 MG Oral Tablet 09/29/2020 12:00:00 AM EST eCW1 ([facility]) Lisinopril 5 MG Oral Tablet 09/29/2020 12:00:00 AM EST eCW1 ([facility]) Lisinopril 5 MG Oral Tablet 09/29/2020 12:00:00 AM EST eCW1 ([facility]) Lisinopril 5 MG Oral Tablet 09/29/2020 12:00:00 AM EST eCW1 ([facility]) Lisinopril 5 MG Oral Tablet 09/29/2020 12:00:00 AM EST eCW1 ([facility]) Amlodipine 5 MG Oral Tablet 09/17/2020 12:00:[address] [facility] Atenolol 50 MG Oral Tablet 09/01/2020 12:00:[address] [facility] Lisinopril 5 MG Oral Tablet 07/28/2020 12:00:[address] [facility] 24 HR Isosorbide Mononitrate 60 MG Extended Release Or al Tablet 07/26/2020 12:00:00 AM EDT [facility] Amlodipine 5 MG Oral Tablet 07/26/2020 12:00:[address] [facility] Metoprolol Tartrate 25 MG Oral Tablet 07/25/2020 12:00:[address] [facility] Docusate Sodium 100 MG Oral Capsule 03/26/2019 12:00:[address] [facility] POLYETHYLENE GLYCOL 3350 142 MG/ML Oral Solution 03/26/2019 12:00:[address] [facility] Lisinopril [address] [facility] METOPROLOL TARTRATE PO [facility] Metronidazole [address] [facility] Amlodipine [address] [facility] LEVETIRACETAM ER PO [facility] 1 ML evolocumab 140 MG/ML Prefilled Syringe [facility] Lisinopril [address] [facility] Atenolol 50 MG Oral Tablet [facility] Amlodipine [address] [facility]
--- NOTE | 2021-07-14 20:16 | REPVR ---
PROCEDURE INFORMATION: Exam: US Duplex Right Lower Extremity Veins, Limited Exam date and time: 07/14/2021 8:03 PM Age: 80 years old Clinical indication: Pain; Leg, lower; Right; Additional info: Swelling TECHNIQUE: Imaging protocol: Real-time Duplex ultrasound of the Right Lower Extremity with 2-D guillen scale, color Doppler flow and spectral waveform analysis with image documentation. Limited exam was focused on the right lower extremity veins. COMPARISON: No relevant prior studies available. FINDINGS: Right deep veins: Unremarkable. The common femoral, femoral, proximal profunda femoral and popliteal veins are patent without thrombus. Normal Doppler waveforms. Normal compressibility and/or augmentation response. Right superficial veins: Unremarkable. Saphenofemoral junction is patent without thrombus. Soft tissues: Mild swelling. IMPRESSION: No evidence of deep vein thrombosis. Electronically signed by: Neil Chance On 07/14/2021 20:16:15 PM
--- NOTE | 2021-07-14 20:21 | REPVR ---
PROCEDURE INFORMATION: Exam: XR Right Knee Exam date and time: 07/14/2021 8:06 PM Age: 80 years old Clinical indication: Other: Trauma TECHNIQUE: Imaging protocol: XR Right knee. Views: 4 or more views. COMPARISON: US Duplex, Ext,LOWER veins,unilat RIGHT 07/14/2021 7:49 PM FINDINGS: Bones/joints: There is no evidence of fracture. Soft tissues: There is soft tissue swelling anterior aspect of the knee. Vasculature: Vascular calcification is noted. IMPRESSION: No evidence of fracture. Electronically signed by: Neil Chance On 07/14/2021 20:21:14 PM
[2021-07-14 20:31] VITALS: BP 148/68
== END 2021-07-14 20:57 | disposition home or self-care (01) ==
LOC: M ED 15:53
DX: M70.51 Other bursitis of knee, right knee (principal); W19.XXXA Unspecified fall, initial encounter; Y92.099 Unspecified place in other non-institutional residence as the place of occurrence of the external cause; Y93.9 Activity, unspecified; Y99.9 Unspecified external cause status; R22.41 Localized swelling, mass and lump, right lower limb; I25.10 Atherosclerotic heart disease of native coronary artery without angina pectoris; I25.2 Old myocardial infarction; J44.9 Chronic obstructive pulmonary disease, unspecified; Z99.81 Dependence on supplemental oxygen; I10 Essential (primary) hypertension

== ENCOUNTER 2021-08-30 14:14 | Emergency (ER) | payer MEDICARE, MEDICAID ==
[~2021-08-30] VITALS: Ht 154.9 cm; Wt 66.1 kg
--- OUTSIDE RECORDS SUMMARY | 2021-08-30 14:23 | CCD ---
Author Author [facility] Organization [facility] Address Unknown Phone Unavailable Care Team Providers Care Primary Teacher Name Role Phone Burt Abdul Unavailable PROBLEMS Type Condition ICD9-CM Code [id number] Code Onset Dates Condition S tatus W/U Status Risk SNOMED Code Notes Problem Seborrheic keratoses L82.1 Active confirmed 698566739 Problem Actinic keratosis L57.0 Active confirmed 20 0281969 Problem History of nonmelanoma skin cancer Z85.828 Activ e confirmed 214177651 Problem Lentigines L81.4 Active confirmed 389114439 Problem Basal cell carcinoma of scalp C44.41 Active confirm ed 329701592 Problem Neuralgia M79.2 Active confirmed 95271542 Problem Dependence on supplemental oxygen Z99.81 Active confirmed 064627941213 Problem 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 Active confirmed 760806039 Problem History of diverticulitis Z87.19 Active confirmed 362433805028458 Problem COPD (chronic obstructive pulmonary disease) jose g e management patient J44.9 Active confirmed 823414569 Problem History of stent insertion of renal artery Z98.890 Active confirmed 167663205 Problem Other chronic pain G89.29 Active confirmed 8 0754024 Problem S/P coronary artery stent placement Z95.5 Acti ve confirmed 005744102 Problem Primary hypertension I10 Active confirmed 28484892 Problem Renovascular hypertension I15.0 Active confirmed 988751891 Problem 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 Active confirmed 286944804 Problem 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 2 IMMUNIZATIONS Vaccine Route Administration Date Status COVID-19 [...] Graduate Language: Question Answer Notes Languages spoken: Croatian Alcohol Screening: Question Answer Notes Did you have a drink containing alcohol in the past year? No Points 0 Interpretation Negative Tobacco Use: Question Answer Notes Are you a: former smoker updated 05/25/2021 How long has it been since you last smoked? > 10 years [id number] REASON FOR REFERRAL No Information VITAL SIGNS Weight 145 lbs Jul, Weight-kg 65.77 kg Jul, Height 61 in Jul, BMI 27.39 kg/m2 Jul, Heart Rate 65 /min Jul, Respiratory Rate 18 /min Jul, Temperature 98.6 degrees Fahrenheit Jul, Oximetry 92%RA Jul, Blood pressure systolic 155 mm Hg Jul, Blood pressure diastolic 83 mm Hg Jul, MEDICATIONS Medication SIG (Take, Route, Frequency, Duration) Notes Start Da te End Date Status Polyethylene Glycol - as directed orally 17 GM daily Not-Taking Clopidogrel Bisulfate 75 MG 1 tablet Orally Once a day for 90 day(s) 05/03/21 Active Calcium 1 tab Oral Not-Taking HYDROcodone-Acetaminophen 10-325 MG 1 tablet as needed Orally qid prn pain, MDD=4 for 7 days Jun, Active Incruse Ellipta 62.5 MCG/INH INHALE 1 PUFF BY MOUTH ONCE A DAY for 90 Active Aspirin 81 81 MG 1 tablet Orally Once a day Active Vitamin D3 50 MCG (1999) 1 capsule Orally Once a day Active Isosorbide Mononitrate ER 60 MG 1 tablet in the mornin g Orally Once a day for 90 day(s) 05/09/21 Active Potassium Chloride Kinjal ER 10 MEQ 1 tablet with food O rally Once a day for 90 day(s) Active Docusate Sodium 100 MG 1 capsule as needed Orally twice a day Not-Taking Magnesium 250 MG 1 tablet with a meal Orally Once a day Active Evolocumab 140 MG/ML 1 ml Subcutaneous every 14 days repatha Not-Taking May Use 1 tab orally Daily Not-Ta thien Metoprolol Tartrate 25 MG 0.5 tablet with food Orally bid for 90 day(s) 05/09/21 Active levETIRAcetam 500 MG 1 tablet Orally Twice a day Not-Taking DULoxetine HCl 30 MG 1 capsule Orally Once a day for 30 day(s) Not-Taking Calcium 500 MG 1.5 tablet with meals Orally Twice a day Active Citalopram Hydrobromide 20 MG 1 tablet Orally Once a day for 90 days Active Ambien 10 MG 1 tablet at bedtime as needed Orally Once a day Not-Taking DULoxetine HCl 30 MG 1 capsule Orally Once a day Active Melatonin 5 MG 1 tablet at bedtime as needed with food Orally Once a day Not-Taking Lyrica 150 MG 1 capsule Orally twice daily for 30 Days 05/09/21 Jun, Active metroNIDAZOLE 500 MG 1 tablet Orally Three times a day for 1 0 day(s) only as needed January, Not-Taking Oxybutynin Chloride 5 MG 1 tablet Orally Twice a day Active levoFLOXacin 500 MG 1 tablet Orally Once a day for 10 day(s) Apr, Not-Taking Nitroglycerin 0.4 MG 1 tab Sublingual as needed every 5 min x 3 doses july Active Breo Ellipta 100-25 MCG/INH 1 puff Inhalation Once a day Active Lisinopril 5 MG 1 tablet Orally Once a day at bedtime 05/09/212020 Active Flagyl 500 MG 1 tablet Orally twice a day as needed 05/10/21 Not-Taking Famotidine 20 MG 1 tab Orally Twice a day Active Chlorthalidone 25 MG 1 tablet in the morning with food Orall y every other day 05/10/21 Active PROCEDURES No Information RESULTS No Results REASON FOR VISIT cough with one episode of blood in sputum MEDICAL (GENERAL) HISTORY Type Description Date Medical History Basal cell carcinoma, face Medical History copd Medical History s/p pacemaker Medical History renal artery stent Medical History Macular degeneration both eyes Medical History diverticulitis Medical History ID Surgical History heart catheterization Surgical History coronary artery stent 07/2020 Surgical History ventral hernia repair Surgical History tubal ligation Surgical History elbow surgery Surgical History bypass Surgical History appendectomy 02/2019 Surgical History pacemaker 07/2020 Surgical History Stent none also 07/2020 Hospitalization History fractured foot 2017 Hospitalization History stroke [address] [place] 07/2020 Goals Section No Information Health Concerns No Information MEDICAL EQUIPMENT No Information MENTAL STATUS No Information FUNCTIONAL STATUS No Information ASSESSMENTS Encounter Date Diagnosis Assessment Notes Treatment Notes Treatm ent Clinical Notes Jul, Blood-tinged sputum (ICD-10 - R04.2) Jul, Cough (ICD-10 - R05.9) You are complaining of having a cough with a single episode of blood-tinged sputum, both which you state have since resolved. Close monitoring at this time. If you change your mind about having an x-ray done or if symptoms return or if you develop new symptoms such as shortness of breath or chest pain, please seek medical attention. Jul, Other Medication/s di scussed with patient and questions answered. RTC as needed for worsening or unresolved symptoms. Patient states understanding and agreement with this plan. PLAN OF TREATMENT Medication Medication Name Sig Start Date Stop Date Isosorbide Mononitrate ER 60 MG 1 tablet in the mornin g Orally Once a day for 90 day(s) Metoprolol Tartrate 25 MG 0.5 tablet with food Orally bid for 90 day(s) Potassium Chloride Kinjal ER 10 MEQ 1 tablet with food O rally Once a day for 90 day(s) Treatment Notes Assessment Notes Clinical Notes Cough You are complaining of havin g a cough with a single episode of blood- tinged sputum, both which you state have since resolved. Close monitoring at this time. If you change your mind about having an x-ray done or if symptoms return or if you develop new symptoms such as shortness of breath or chest pain, please seek medical attention. Next Appt Details 2 - 3 Days unless improving Reason: Provider Name:Joy Samuels, 11:45:00 AM, [address] [place] [address], , [place], [place], [facility], Provider Name:Helio Zabala, 2021-08-26 02 :00:00 PM, [address] [facility], , [place], [address], Provider Name:Lyndon Schwartz, 2021-09-06 01:45:00 PM, [address], , [place], [address], Provider Name:Lyndon Schwartz, 2021-10-22 02:30:00 PM, [address], , [place], [address], Insurance Providers Payer Name Payer Address Payer Phone Insured Name Patient Relati onship to Insured Coverage Start Date Coverage End Date MEDICARE COMPLETE [facility] [address] [address] [facility] [id number] TIANNA THORNTON self
--- OUTSIDE RECORDS SUMMARY | 2021-08-30 14:23 | CCD ---
Author Author [facility] Organization [facility] Address Unknown Phone Unavailable Care Team Providers Care Associate Director Of Nursing Name Role Phone Helio Zabala Unavailable PROBLEMS Type Condition ICD9-CM Code [id number] Code Onset Dates Condition S tatus W/U Status Risk SNOMED Code Notes Problem Seborrheic keratoses L82.1 Active confirmed 768783513 Problem Actinic keratosis L57.0 Active confirmed 20 4419792 Problem History of nonmelanoma skin cancer Z85.828 Activ e confirmed 294168582 Problem Lentigines L81.4 Active confirmed 982559231 Problem Basal cell carcinoma of scalp C44.41 Active confirm ed 438054223 Problem Neuralgia M79.2 Active confirmed 20115748 Problem Dependence on supplemental oxygen Z99.81 Active confirmed 276544732078 Problem 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 Active confirmed 822782841 Problem History of diverticulitis Z87.19 Active confirmed 411882444011190 Problem COPD (chronic obstructive pulmonary disease) jose g e management patient J44.9 Active confirmed 304044978 Problem History of stent insertion of renal artery Z98.890 Active confirmed 375083054 Problem Other chronic pain G89.29 Active confirmed 8 1347347 Problem S/P coronary artery stent placement Z95.5 Acti ve confirmed 170259601 Problem Primary hypertension I10 Active confirmed 11622901 Problem Renovascular hypertension I15.0 Active confirmed 116428991 Problem 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 Active confirmed 689627817 Problem 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 Active confirmed 33670346 Problem Rheumatoid arthritis involvi ng multiple sites with positive rheumatoid factor M05.79 Active confirmed 553662096 Problem 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 Active confirmed 429674723 ALLERGIES No Known Allergies ENCOUNTERS from 1940 to 2021-08-27 Encounter Location Date Provider Diagnosis [facility] Nacho HOYT [phone] [place] [address] Aug, Helio Zabala COPD (chronic obstructive pulmonary dise ase) case management patient J44.9 ; Annual physical exam Z00.00 ; S/P coronary artery stent placement Z95.5 and 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 IMMUNIZATIONS Vaccine Route Administration Date Status Pfizer #3 dose COVID-19 (given elsewhere) SARSCOV2 VAC 30MCG /0.3ML IM Unknown Aug 25, 2021 Administered COVID-19 dose #2 given elsewhere Unspecified Unknown [...] Graduate Language: Question Answer Notes Languages spoken: Hebrew Alcohol Screening: Question Answer Notes Did you have a drink containing alcohol in the past year? No Points 0 Interpretation Negative Tobacco Use: Question Answer Notes Are you a: former smoker updated 08/26/2021 How long has it been since you last smoked? > 10 years [id number] REASON FOR REFERRAL No Information VITAL SIGNS Weight 149 lbs Aug, Height 61 in Aug, BMI 28.15 kg/m2 Aug, Heart Rate 65 /min Aug, Respiratory Rate 21 /min Aug, Temperature 98 degrees Fahrenheit Aug, Oximetry 92RA Aug, Blood pressure systolic 186 mm Hg Aug, Blood pressure diastolic 80 mm Hg Aug, MEDICATIONS Medication SIG (Take, Route, Frequency, Duration) Notes Start Da te End Date Status Vitamin D3 50 MCG (1999) 1 capsule Orally Once a day Active Docusate Sodium 100 MG 1 capsule as needed Orally twice a day Not-Taking Calcium 500 MG 1.5 tablet with meals Orally Twice a day Active Isosorbide Mononitrate ER 60 MG 1 tablet in the morning Oral ly Once a day 05/09/21 Active Citalopram Hydrobromide 20 MG 1 tablet Orally Once a day Active Lisinopril 5 MG 1 tablet Orally Once a day at bedtime 05/09/21 05 J 2020 Active Polyethylene Glycol - as directed orally 17 GM daily Not-Taking May Use 1 tab orally Daily Not-Ta thien Metoprolol Tartrate 25 MG 0.5 tablet with food Orally bid 05/09/21 Active predniSONE 20 MG TAKE ONE TABLET BY MOUTH EVERY DAY FOR 5 DAYS Oral Active Melatonin 5 MG 1 tablet at bedtime as needed with food Orally Once a day Not-Taking levETIRAcetam 500 MG 1 tablet Orally Twice a day Not-Taking Oxybutynin Chloride 5 MG 1 tablet Orally Twice a day Active Evolocumab 140 MG/ML 1 ml Subcutaneous every 14 days repatha Not-Taking Chlorthalidone 25 MG 1 tablet in the morning with food Orall y every other day 05/10/21 Active Nitroglycerin 0.4 MG 1 tab Sublingual as needed every 5 min x 3 doses july Active Clopidogrel Bisulfate 75 MG 1 tablet Orally Once a day 05/03/21 Active Magnesium 250 MG 1 tablet with a meal Orally Once a day Active Aspirin 81 81 MG 1 tablet Orally Once a day Active Potassium Chloride Kinjal ER 10 MEQ 1 tablet with food Orally Once a da y Active HYDROcodone-Acetaminophen 10-325 MG 1 tablet as needed Orally qid prn pain, MDD=4 14 Jun, 2021 Active Calcium 1 tab Oral Not-Taking metroNIDAZOLE 500 MG 1 tablet Orally Three times a day for 1 0 day(s) only as needed January, Not-Taking Breo Ellipta 100-25 MCG/INH 1 puff Inhalation Once a day Active Incruse Ellipta 62.5 MCG/INH INHALE 1 PUFF BY MOUTH ONCE A DAY Active Lyrica 150 MG 1 capsule Orally twice daily 05/09/21 Jun, Active Famotidine 20 MG 1 tab Orally Twice a day Active Flagyl 500 MG 1 tablet Orally twice a day as needed 05/10/21 Not-Taking Ambien 10 MG 1 tablet at bedtime as needed Orally Once a day Not-Taking levoFLOXacin 500 MG 1 tablet Orally Once a day for 10 day(s) Apr, Not-Taking DULoxetine HCl 30 MG 1 capsule Orally Once a day Active DULoxetine HCl 30 MG 1 capsule Orally Once a day for 30 day(s) Not-Taking PROCEDURES No Information RESULTS No Results REASON FOR VISIT [id number],[id number] few concerns with breathing MEDICAL (GENERAL) HISTORY Type Description Date Medical History Basal cell carcinoma, face Medical History copd Medical History s/p pacemaker Medical History renal artery stent Medical History Macular degeneration both eyes Medical History diverticulitis Medical History [place] Surgical History heart catheterization Surgical History coronary artery stent 07/2020 Surgical History ventral hernia repair Surgical History tubal ligation Surgical History elbow surgery Surgical History bypass Surgical History appendectomy 02/2019 Surgical History pacemaker 07/2020 Surgical History Stent none also 07/2020 Hospitalization History fractured foot 2017 Hospitalization History stroke [address] [facility] 07/2020 Goals Section No Information Health Concerns No Information MEDICAL EQUIPMENT No Information MENTAL STATUS No Information FUNCTIONAL STATUS No Information ASSESSMENTS Encounter Date Diagnosis Assessment Notes Treatment Notes Treatm ent Clinical Notes Aug, COPD (chronic obstructive pu lmonary disease) case management patient (ICD-10 - J44.9) Aug, Annual physical exam (ICD-10 - Z00.00) Aug, S/P coronary artery stent placement (ICD-10 - Z9 5.5) Aug, Status post cardiac pacemaker procedure (ICD-10 - Z95.0) PLAN OF TREATMENT Medication Medication Name Sig Start Date Stop Date Clopidogrel Bisulfate 75 MG 1 tablet Orally Once a day DULoxetine HCl 30 MG 1 capsule Orally Once a day Potassium Chloride Kinjal ER 10 MEQ 1 tablet with food Orally Once a day Incruse Ellipta 62.5 MCG/INH INHALE 1 PUFF BY MOUTH ONCE A DAY Lyrica 150 MG 1 capsule Orally twice daily Jun, Breo Ellipta 100-25 MCG/INH 1 puff Inhalation Once a day Magnesium 250 MG 1 tablet with a meal Orally Once a day Oxybutynin Chloride 5 MG 1 tablet Orally Twice a day Calcium 500 MG 1.5 tablet with meals Orally Twice a day Lisinopril 5 MG 1 tablet Orally Once a day at bedtime Sep, 21 Nitroglycerin 0.4 MG 1 tab Sublingual as needed every 5 min x 3 doses Famotidine 20 MG 1 tab Orally Twice a day HYDROcodone-Acetaminophen 10-325 MG 1 tablet as needed Orally qid prn pain, MDD=4 14 Jun, 2021 Chlorthalidone 25 MG 1 tablet in the morning with food Orally ev aster other day Isosorbide Mononitrate ER 60 MG 1 tablet in the morning Orally O nce a day Metoprolol Tartrate 25 MG 0.5 tablet with food Orally bid Vitamin D3 50 MCG (1999 [place]) 1 capsule Orally Once a day predniSONE 20 MG TAKE ONE TABLET BY MOUTH EVERY DAY FOR 5 DAYS O ral Citalopram Hydrobromide 20 MG 1 tablet Orally Once a day Future Test Test Name Order Date XRAY CHEST 2 VIEW CLY.CXR2 CLY [id number] Next Appt Details 1 Week Reason: Provider Name:Helio Zabala, 2021-09-03 10 :30:00 AM, [address] [place] [address], , [place], [address], Provider Name:Lyndon Schwartz, 2021-09-06 01:45:00 PM, [address] [place] [address], , [place], [address], Provider Name:Lyndon Schwartz, 2021-10-22 02:30:00 PM, [address] [place] [address], , [place], [address], Provider Name:Joy Samuels, 10:45:00 AM, [address] [place] [address], , [place], [address], Insurance Providers Payer Name Payer Address Payer Phone Insured Name Patient Relati onship to Insured Coverage Start Date [facility]age End Date [facility] [address] [facility] [phone] TIANNA THORNTON self MEDICAID [facility] [address] [place] [facility] [id number] TIANNA THORNTON self
--- OUTSIDE RECORDS SUMMARY | 2021-08-30 14:23 | CCD | Continuity of Care Document ---
Author Author [facility] Organization Unknown Address [address] [place] [address] Phone [phone] Care Team Providers Care Works Manager Name Role Phone Helio Zabala M.D. AUTM [phone] Problems Description No Information Available Social History Type Date Description Comments Sex Unknown Allergies and adverse reactions Active Allergies Criticality Reaction | Severity Comments Date NSAIDs Unable to assess criticality hx PUD and C AD 05/06/2020 Klonopin Unable to assess criticality confusion 01/21/2021 Medications Active Medications SIG Qnty Indications Ordering Provide r Date Duloxetine HCL 30mg Caps DR Part 1 po bid 180caps Sofia Quick M.D. 02/05/2021 Immunizations Description No Information Available Vital Signs Date Vital Result Comment 08/06/2021 7:02am BP Systolic 130 mmHg BP Diastolic 80 mmHg Heart Rate 64 /min Respiratory Rate 16 /min 05/06/2021 5:38am BP Systolic 130 mmHg BP Diastolic 80 mmHg Heart Rate 72 /min Respiratory Rate 16 /min Results Description No Information Available Procedures Date Code Description Status 08/06/2021 90804 Office/Outpatient Established Mo d MDM 30-39 Min Completed 05/06/2021 48541 Office/Outpatient Established Mo d MDM 30-39 Min Completed Medical Devices Description No Information Available Encounters Type Date Location Provider Dx Diagnosis Office Visit 08/06/2021 8:45a Main office - [place] Zari eddy P.A.-CJosé Miguel G40.89 Other seizures R55 Syncope and collapse R42 Dizziness and giddiness 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 08/06/2021 R55 Syncope and collapse Zari salas, P.A.-C. 08/06/2021 R42 Dizziness and giddiness Zari Ochoa, P.A.-C. 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 08/06/2021 G60.9 Hereditary and idiopathic neurop athy, unspecified Zari Ochoa, P.A.-C. 08/06/2021 M54.50 Low back pain, unspecified Zari Ochoa, P.A.-C. 05/06/2021 R42 Dizziness and giddiness Zari Ochoa, P.A.-C. 05/06/2021 R55 Syncope and collapse Zari salas, P.A.-C. 05/06/2021 G40.89 Other seizures Zari Ochoa, P.A.-C. 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 05/06/2021 M54.5 Low back pain Zari Ochoa, P.A.-C. 05/06/2021 G60.9 Hereditary and idiopathic neurop athy, unspecified Zari Ochoa, P.A.-C. 04/21/2021 R42 Dizziness and giddiness Zari Ochoa, P.A.-C. 04/21/2021 R55 Syncope and collapse Zari salas, P.A.-C. 04/21/2021 G40.89 Other seizures Zari Ochoa, P.A.-C. 04/21/2021 G47.51 Confusional arousals Zari salas P.A.-C. 04/21/2021 M54.5 Low back pain Zari Ochoa P.A.-C. 04/21/2021 G60.9 Hereditary and idiopathic neurop athy, unspecified Zari Ochoa P.A.-C. Plan of Treatment Future Appointment(s):* 01/26/2022 8:30 am - Zari Ochoa P.A.-C. at [facility] 08/06/2021 - Zari Ochoa P.A.-C.* G40.89 Other seizures* Comments:* Not recurrent since having pacemaker placed. * R55 Syncope and collapse* Comments:* Not recurrent. * R42 Dizziness and giddiness* Comments:* Improved. * G47.51 Confusional arousals* Comments:* Resolved. * G60.9 Hereditary and idiopathic neuropathy, unspecified* Comments:* Continue Cymbalta. She was advised to use a cane on uneven ground. * M54.50 Low back pain, unspecified* Comments:* Follow up at the pain clinic. * Follow up:* 6 months. Functional Status Description No Information Available Mental Status Description No Information Available Referrals Refer to Reason for Referral Status Appt Date Lyndon Rubio M.D. LOW BACK PAIN Created [facility] [address] [place] [address] [phone]"
--- OUTSIDE RECORDS SUMMARY | 2021-08-30 14:23 | CCD ---
Author Author [facility] Organization [facility] Address Unknown Phone Unavailable Care Team Providers Care Physical Ther Name Role Phone Helio Zabala Unavailable PROBLEMS Type Condition ICD9-CM Code [id number] Code Onset Dates Condition S tatus W/U Status Risk SNOMED Code Notes Problem Seborrheic keratoses L82.1 Active confirmed 315919041 Problem Actinic keratosis L57.0 Active confirmed 20 9277622 Problem History of nonmelanoma skin cancer Z85.828 Activ e confirmed 527417060 Problem Lentigines L81.4 Active confirmed 166817915 Problem Basal cell carcinoma of scalp C44.41 Active confirm ed 321687566 Problem Neuralgia M79.2 Active confirmed 56021964 Problem Dependence on supplemental oxygen Z99.81 Active confirmed 008950608024 Problem 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 Active confirmed 920122406 Problem History of diverticulitis Z87.19 Active confirmed 276473632861100 Problem COPD (chronic obstructive pulmonary disease) jose g e management patient J44.9 Active confirmed 176484002 Problem History of stent insertion of renal artery Z98.890 Active confirmed 587147242 Problem Other chronic pain G89.29 Active confirmed 8 3997895 Problem S/P coronary artery stent placement Z95.5 Acti ve confirmed 822714857 Problem Primary hypertension I10 Active confirmed 70740601 Problem Renovascular hypertension I15.0 Active confirmed 007739277 Problem 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 Active confirmed 134203925 Problem 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 Active confirmed 75180521 Problem Rheumatoid arthritis involvi ng multiple sites with positive rheumatoid factor M05.79 Active confirmed 706444107 Problem 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 No Points 0 Interpretation Negative Tobacco Use: Question Answer Notes Are you a: former smoker updated 05/25/2021 How long has it been since you last smoked? > 10 years [id number] REASON FOR REFERRAL No Information VITAL SIGNS No information MEDICATIONS Medication SIG (Take, Route, Frequency, Duration) Notes Start Da te End Date Status Evolocumab 140 MG/ML 1 ml Subcutaneous every 14 days repatha Not-Taking Nitroglycerin 0.4 MG 1 tab Sublingual as needed every 5 min x 3 doses july Active Potassium Chloride Kinjal ER 10 MEQ 1 tablet with food Orally Once a da y Active Citalopram Hydrobromide 20 MG 1 tablet Orally Once a day for 90 days Active levoFLOXacin 500 MG 1 tablet Orally Once a day for 10 day(s) Apr, Not-Taking Melatonin 5 MG 1 tablet at bedtime as needed with food Orally Once a day Not-Taking Clopidogrel Bisulfate 75 MG 1 tablet Orally Once a day for 90 day(s) 05/03/21 Active Isosorbide Mononitrate ER 60 MG 1 tablet in the morning Oral ly Once a day 05/09/21 Active Metoprolol Tartrate 25 MG 1 tablet with food Orally qhs 05/09/21 Active Oxybutynin Chloride 5 MG 1 [...] 1 tab Orally Twice a day Active Polyethylene Glycol - as directed orally 17 GM daily Not-Taking May Use 1 tab orally Daily Not-Ta thien metroNIDAZOLE 500 MG 1 tablet Orally Three times a day for 1 0 day(s) only as needed January, Not-Taking Calcium 1 tab Oral Not-Taking Lisinopril 5 MG 1 tablet Orally Once a day at bedtime 05/09/21 05 J 2020 Active Breo Ellipta 100-25 MCG/INH 1 puff Inhalation Once a day Active HYDROcodone-Acetaminophen 10-325 MG 1 tablet as needed Orally qid prn pain, MDD=4 for 7 days Jun, Active Flagyl 500 MG 1 tablet Orally twice a day as needed 05/10/21 Not-Taking Calcium 500 MG 1.5 tablet with meals Orally Twice a day Active Docusate Sodium 100 MG 1 capsule as needed Orally twice a day Not-Taking levETIRAcetam 500 MG 1 tablet Orally Twice a day Not-Taking Lyrica 150 MG 1 capsule Orally twice daily for 30 Days 05/09/21 Jun, Active Vitamin D3 50 MCG (1999 [place]) 1 capsule Orally Once a day Active DULoxetine HCl 30 MG 1 capsule Orally Once a day Active DULoxetine HCl 30 MG 1 capsule Orally Once a day for 30 day(s) Not-Taking Magnesium 250 MG 1 tablet with a meal Orally Once a day Active PROCEDURES No Information RESULTS No Results REASON FOR VISIT refill-citalopram MEDICAL (GENERAL) HISTORY Type Description Date Medical History Basal cell carcinoma, face Medical History copd Medical History s/p pacemaker Medical History renal artery stent Medical History Macular degeneration both eyes Medical History diverticulitis Medical History [place] Surgical History heart catheterization Surgical History coronary artery stent 07/2020 Surgical History ventral hernia repair Surgical History tubal ligation Surgical History elbow surgery Surgical History bypass Surgical History appendectomy 02/2019 Surgical History pacemaker 07/2020 Surgical History Stent none also 07/2020 Hospitalization History fractured foot 2017 Hospitalization History stroke [address] [facility] 07/2020 Goals Section No Information Health Concerns No Information MEDICAL EQUIPMENT No Information MENTAL STATUS No Information FUNCTIONAL STATUS No Information ASSESSMENTS No Information PLAN OF TREATMENT Medication Medication Name Sig Start Date Stop Date Vitamin D3 50 MCG (1999 [place]) 1 capsule Orally Once a day Magnesium 250 MG 1 tablet with a meal Orally Once a day Lyrica 150 MG 1 capsule Orally twice daily for 30 Days Jun, DULoxetine HCl 30 MG 1 capsule Orally Once a day Incruse Ellipta 62.5 MCG/INH INHALE 1 PUFF BY MOUTH ONCE A DAY or 90 Aspirin 81 81 MG 1 [...] MG 1 tab Orally Twice a day Calcium 500 MG 1.5 tablet with meals Orally Twice a day Potassium Chloride Kinjal ER 10 MEQ 1 tablet with food Orally Once a day Lisinopril 5 MG 1 tablet Orally Once a day at bedtime Sep, Breo Ellipta 100-25 MCG/INH 1 puff Inhalation Once a day Citalopram Hydrobromide 20 MG 1 tablet Orally Once a day for 90 days HYDROcodone-Acetaminophen 10-325 MG 1 tablet as needed Orally qid prn pain, MDD=4 for 7 days Jun, Metoprolol Tartrate 25 MG 1 tablet with food Orally qhs Nitroglycerin 0.4 MG 1 tab Sublingual as needed every 5 min x 3 doses Next Appt Details Provider Name:Helio Zabala, 2021-08-24 03 :30:00 PM, [address] [place] [address], , [place], [address], Provider Name:Joy Samuels, 11:45:00 AM, [address] [place] [address], , [place], [address], Provider Name:Lyndon Schwartz, 2021-09-06 01:45:00 PM, [address] [place] [address], , [place], [address], Provider Name:Lyndon Schwartz, 2021-10-22 02:30:00 PM, [address] [place] [address], , [place], [address], Insurance Providers Payer Name Payer Address Payer Phone Insured Name Patient Relati onship to Insured Coverage Start Date Coverage End Date MEDICARE [facility]PLE[facility] [address] [address] [facility] [id number] TIANNA THORNTON self
--- OUTSIDE RECORDS SUMMARY | 2021-08-30 14:23 | CCD | Continuity of Care Document ---
Author Author [facility]CHOA P.A.-[facility]. Organization Unknown Address [address] [place] [address] Phone [phone] Care Team Providers Care Metalworker Name Role Phone Helio Zabala M.D. AUTM [phone] Problems Description No Information Available Social History [...] Available Procedures Date Code Description Status 05/06/2021 92646 Office/Outpatient Established Mo d MDM 30-39 Min Completed Medical Devices Description No Information Available Encounters Type Date Location Provider Dx Diagnosis Office Visit 05/06/2021 8:00a Main office - [place] Ruslan TorresCJosé Miguel R42 Dizziness and giddiness R55 Syncope and collapse G40.89 Other seizures G47.51 Confusional arousals M54.5 Low back pain G60.9 Hereditary and idiopathic ne uropathy, unspecified Assessments Date Code Description Provider 08/06/2021 G40.89 Other seizures Lo Haney.-C. 08/06/2021 R55 Syncope and collapse Zari Steven Tri ckey, P.A.-C. 08/06/2021 R42 Dizziness and giddiness Zari Steven Patriciakey, P.A.-C. 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 08/06/2021 G60.9 Hereditary and idiopathic neurop athy, unspecified Zari BelloJosé Miguel Gomezkey, P.A.-C. 08/06/2021 M54.50 Low back pain, unspecified Zari BelloJosé Miguel Gomezkey, P.A.-C. 05/06/2021 R42 Dizziness and giddiness Zari BelloJosé Miguel Ochoa, P.A.-C. 05/06/2021 R55 Syncope and collapse Zari J. Melva ckey, P.A.-C. 05/06/2021 G40.89 Other seizures Zari BelloJosé Miguel Gomezkey, P.A.-C. 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 Tri ckey, P.A.-C. 05/06/2021 M54.5 Low back pain Zari BelloJosé Miguel Ochoa, P.A.-C. 05/06/2021 G60.9 Hereditary and idiopathic neurop athy, unspecified Zari BelloJosé Miguel Gomezkey, P.A.-C. 04/21/2021 R42 Dizziness and giddiness Zari BelloJosé Miguel Ochoa, P.A.-C. 04/21/2021 R55 Syncope and collapse Zari J. Tri ckey, P.A.-C. 04/21/2021 G40.89 Other seizures Zari BelloJosé Miguel Ochoa, P.A.-C. 04/21/2021 G47.51 Confusional arousals Zari Steven Tri ckey, P.A.-C. 04/21/2021 M54.5 Low back pain Zari BelloJosé Miguel Ochoa, P.A.-C. 04/21/2021 G60.9 Hereditary and idiopathic neurop athy, unspecified Zari Steven Ochoa, P.A.-C. Plan of Treatment No Information Available Functional Status Description No Information Available Mental Status Description No Information Available Referrals Refer to Reason for Referral Status Appt Date Lyndon Rubio M.D. LOW BACK PAIN Created [facility] [address] [place] [address] [phone]"
--- OUTSIDE RECORDS SUMMARY | 2021-08-30 14:23 | CCD ---
Author Author [facility] Organization [facility] Address Unknown Phone Unavailable Care Team Providers Care Nascar Driver Name Role Phone Joy Samuels Unavailable PROBLEMS Type Condition ICD9-CM Code [id number] Code Onset Dates Condition S tatus W/U Status Risk SNOMED Code Notes Problem Seborrheic keratoses L82.1 Active confirmed 205339172 Problem Actinic keratosis L57.0 Active confirmed 20 1752939 Problem History of nonmelanoma skin cancer Z85.828 Activ e confirmed 556443499 Problem Lentigines L81.4 Active confirmed 542422322 Problem Basal cell carcinoma of scalp C44.41 Active confirm ed 509869841 Problem Neuralgia M79.2 Active confirmed 82127191 Problem Dependence on supplemental oxygen Z99.81 Active confirmed 371999834912 Problem 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 Active confirmed 212643764 Problem History of diverticulitis Z87.19 Active confirmed 164723485218316 Problem COPD (chronic obstructive pulmonary disease) jose g e management patient J44.9 Active confirmed 029621416 Problem History of stent insertion of renal artery Z98.890 Active confirmed 361802570 Problem Other chronic pain G89.29 Active confirmed 8 1542987 Problem S/P coronary artery stent placement Z95.5 Acti ve confirmed 582055875 Problem Primary hypertension I10 Active confirmed 43381804 Problem Renovascular hypertension I15.0 Active confirmed 838464620 Problem 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 Active confirmed 161689248 Problem 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 Active confirmed 68704636 Problem Rheumatoid arthritis involvi ng multiple sites with positive rheumatoid factor M05.79 Active confirmed 263066678 Problem 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 Active confirmed 150645532 ALLERGIES No Known Allergies ENCOUNTERS from 1940 to 2021-08-27 Encounter Location Date Provider Diagnosis [facility] [address] [place] [address] [place] [address] Aug, Joy Samuels Rheumatoid factor positive R 76.8 ; 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 No Points 0 Interpretation Negative Tobacco Use: Question Answer Notes Are you a: former smoker updated 08/26/2021 How long has it been since you last smoked? > 10 years [id number] REASON FOR REFERRAL No Information VITAL SIGNS Weight 151.4 lbs Aug, Weight-kg 68.67 kg Aug, Height 61 in Aug, BMI 28.60 kg/m2 Aug, Heart Rate 70 /min Aug, Respiratory Rate 18 /min Aug, Temperature 99.0 degrees Fahrenheit Aug, Oximetry 85% RA Aug, Blood pressure systolic 142 mm Hg Aug, Blood pressure diastolic 66 mm Hg Aug, MEDICATIONS Medication SIG (Take, [...] Information RESULTS No Results REASON FOR VISIT Patient is here for a 6 month f/u. She recently had a fall while visiting her [facility] in [place], requiring 3 erick in her head. MEDICAL (GENERAL) HISTORY Type Description Date Medical [...] History stroke [address] [place] 07/2020 Goals Section No Information Health Concerns No Information MEDICAL EQUIPMENT No Information MENTAL STATUS No Information FUNCTIONAL STATUS No Information ASSESSMENTS Encounter Date Diagnosis Assessment Notes Treatment Notes Treatm ent Clinical Notes Aug, Rheumatoid factor positive (ICD-10 - R76.8) Rheumatoid factor 47.2 However, given the dry mouth , SOB though possibly from COPD and itching / rash , we did further eval and ruled out Sjogren's, lupus, sarcoidosis, vasculitis and rheumatoid arthritis as well as infections like hepatitis and TB and all has been negative to date x-rays negative of hands, foot and chest no new symptoms since last visit chronic pain most likely secondary to osteoarthritis and neuropathy, controlled on current therapy No features to suggest inflammatory arthritis at this time will continue monitor closely at this time Aug, Primary osteoarthritis involving multipl e joints (ICD-10 - M89.49) affecting the hands, feet and back MRI lumbar spine with DJD and stenosis in canal and neuraforamina X-rays of the ankle and foot in the reviewed that shows evidence of osteoarthritis in 2019 Continue Tylenol and hydrocodone for pain management as needed by primary care physician Avoid NSAIDs given heart issues Regular exercise and weight loss encouraged continue follow up with PCP Aug, Osteopenia of multiple sites (ICD-10 - M85.89) 04/2020 BMD with L1 T score of -2.4 Z score of -1.1 , L2 Tscore -1.0 Left femur neck Tscore -2.2, Zscore -0.5 Right femur neck Tscore -1.9, Zscore -0.1 Vitamin D levels normal Continue calcium 1500 mg and vitamin D 600 IU Continue to encourage treatment for osteopenia, especially given history of recurrent fractures Will defer treatment for primary care physician at this time repeat DEXA in 04/2022Aug, Acute pain of left knee (ICD-10 - M25.562) left lateral inferior knee pain on weight bearing as well as tenderness to palpation and warmth after the fall recommend further eval with PCP this afternoon with Xrays to rule out fracture Aug, Other PATIENT INSTRUCTIONS : call us with any questions or concerns at any time recommend further eval with PCP this afternoon with Xrays to rule out fracture on the left knee return in 1 year PLAN OF TREATMENT Medication Medication Name Sig [...] Orally bid Vitamin D3 50 MCG (1999 UT) 1 capsule Orally Once a day predniSONE 20 MG TAKE ONE TABLET BY MOUTH EVERY DAY FOR 5 DAYS O ral Citalopram Hydrobromide 20 MG 1 tablet Orally Once a day Treatment Notes Assessment Notes Clinical Notes Rheumatoid factor positive Rheumatoid fa ctor 47.2However, given the dry mouth , SOB though possibly from COPD and itching / rash , we did further eval and ruled out Sjogren's, lupus, sarcoidosis, vasculitis and rheumatoid arthritis as well as infections like hepatitis and TB and all has been negative to datex-rays negative of hands, foot and chestno new symptoms since last visitchronic pain most likely secondary to osteoarthritis and neuropathy, controlled on current therapyNo features to suggest inflammatory arthritis at this timewill continue monitor closely at this time Primary osteoarthritis involving multiple joints affecting the hands, feet and backMRI lumbar spine with DJD and stenosis in canal and neuraforaminaX-rays of the ankle and foot in the reviewed that shows evidence of osteoarthritis in 2019Continue Tylenol and hydrocodone for pain management as needed by primary care physicianAvoid NSAIDs given heart issuesRegular exercise and weight loss encouragedcontinue follow up with PCP Osteopenia of multiple sites 04/2020 BMD withL1 T score of -2.4 Z score of -1.1 , L2 Tscore -1.0Left femur neck Tscore -2.2, Zscore -0.5Right femur neck Tscore -1.9, Zscore -0.1Vitamin D levels normalContinue calcium 1500 mg and vitamin D 600 IUContinue to encourage treatment for osteopenia, especially given history of recurrent fracturesWill defer treatment for primary care physician at this timerepeat DEXA in 04/2022 Acute pain of left knee left lateral inf erior knee pain on weight bearingas well as tenderness to palpation and warmthafter the fallrecommend further eval with PCP this afternoon with Xrays to rule out fracture Next Appt Details 1 Year Reason: Provider Name:Helio Zabala, 2021-09-03 10 :30:00 AM, [address] [place] [address], , [place], [address], Provider Name:Lyndon Schwartz, 2021-09-06 01:45:00 PM, [address], , [place], [address], Provider Name:Lyndon Schwartz, 2021-10-22 02:30:00 PM, [address], , [place], [address], Provider Name:Joy Samuels, 10:45:00 AM, [address] [facility], , [place], [address], Insurance Providers Payer Name Payer Address Payer Phone Insured Name Patient Relati onship to Insured Coverage Start Date Coverage End Date MEDICAID [employer] [address] [facility] [id number] TIANNA THORNTON [facility] [id number] [facility] [address] TIANNA THORNTON self
--- OUTSIDE RECORDS SUMMARY | 2021-08-30 14:23 | CCD ---
Author Author [facility] Organization [facility] Address Unknown Phone Unavailable Care Team Providers Care Buyer Planner Name Role Phone Helio Zabala Unavailable PROBLEMS Type Condition ICD9-CM Code [id number] Code Onset Dates Condition S tatus W/U Status Risk SNOMED Code Notes Problem Seborrheic keratoses L82.1 Active confirmed 771050615 Problem Actinic keratosis L57.0 Active confirmed 20 5291569 Problem History of nonmelanoma skin cancer Z85.828 Activ e confirmed 315610823 Problem Lentigines L81.4 Active confirmed 732520934 Problem Basal cell carcinoma of scalp C44.41 Active confirm ed 350187721 Problem Neuralgia M79.2 Active confirmed 01603456 Problem Dependence on supplemental oxygen Z99.81 Active confirmed 354829286547 Problem 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 Active confirmed 490217084 Problem History of diverticulitis Z87.19 Active confirmed 818645876408972 Problem COPD (chronic obstructive pulmonary disease) jose g e management patient J44.9 Active confirmed 925196392 Problem History of stent insertion of renal artery Z98.890 Active confirmed 036903817 Problem Other chronic pain G89.29 Active confirmed 8 9674251 Problem S/P coronary artery stent placement Z95.5 Acti ve confirmed 856647904 Problem Primary hypertension I10 Active confirmed 58423216 Problem Renovascular hypertension I15.0 Active confirmed 263610852 Problem 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 Active confirmed 357838828 Problem 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 Active confirmed 05192183 Problem Rheumatoid arthritis involvi ng multiple sites with positive rheumatoid factor M05.79 Active confirmed 372536578 Problem 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 No Points 0 Interpretation Negative Tobacco Use: Question Answer Notes Are you a: former smoker updated 08/26/2021 How long has it been since you last smoked? > 10 years [id number] REASON FOR REFERRAL No Information VITAL SIGNS [...] Once a day at bedtime 05/09/212020 Active Polyethylene Glycol - as directed orally [...] Information RESULTS No Results REASON FOR VISIT knee xray MEDICAL (GENERAL) HISTORY Type Description Date Medical History Basal cell carcinoma, face Medical History copd Medical History s/p pacemaker Medical History renal artery stent Medical History Macular degeneration both eyes Medical History diverticulitis Medical History [place] Surgical History heart catheterization Surgical History coronary artery stent 07/2020 Surgical History ventral hernia repair Surgical History tubal ligation Surgical History elbow surgery Surgical History bypass Surgical History appendectomy 02/2019 Surgical History pacemaker 07/2020 Surgical History Stent none also 07/2020 Hospitalization History fractured foot 2017 Hospitalization History stroke [address] [place] 07/2020 Goals Section No Information Health Concerns [...] day Next Appt Details Provider Name:Helio Zabala, 2021-09-03 10 :30:00 AM, [address] [place] [address], , [place], [address], Provider Name:Lyndon Schwartz, 2021-09-06 01:45:00 PM, [address], , [place], [address], Provider Name:Lyndon Schwartz, 2021-10-22 02:30:00 PM, [address] [place] [address], , [place], [address], Provider Name:Joy Samuels, 10:45:00 AM, [address] [facility], , [place], [address], Insurance Providers Payer Name Payer Address Payer Phone Insured Name Patient Relati onship to Insured Coverage Start Date Coverage End Date MEDICAID [employer] [address] [facility] [id number] TIANNA THORNTON self [facility] [address] [facility] [phone] TIANNA THORNTON self
--- OUTSIDE RECORDS SUMMARY | 2021-08-30 14:23 | CCD ---
Author Author [facility] [employer] [facility] Organization [facility] Address Unknown Phone Unavailable Care Team Providers Care Regional Marketing Director Name Role Phone Helio Zabala Unavailable PROBLEMS Type Condition ICD9-CM Code [id number] Code Onset Dates Condition S tatus W/U Status Risk SNOMED Code Notes Problem Seborrheic keratoses L82.1 Active confirmed 407214901 Problem Actinic keratosis L57.0 Active confirmed 20 8363199 Problem History of nonmelanoma skin cancer Z85.828 Activ e confirmed 156818881 Problem Lentigines L81.4 Active confirmed 336569876 Problem Basal cell carcinoma of scalp C44.41 Active confirm ed 965038477 Problem Neuralgia M79.2 Active confirmed 77256410 Problem Dependence on supplemental oxygen Z99.81 Active confirmed 538996807314 Problem 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 Active confirmed 931010540 Problem History of diverticulitis Z87.19 Active confirmed 327045675598705 Problem COPD (chronic obstructive pulmonary disease) jose g e management patient J44.9 Active confirmed 247575054 Problem History of stent insertion of renal artery Z98.890 Active confirmed 878819710 Problem Other chronic pain G89.29 Active confirmed 8 7169541 Problem S/P coronary artery stent placement Z95.5 Acti ve confirmed 028296996 Problem Primary hypertension I10 Active confirmed 07254260 Problem Renovascular hypertension I15.0 Active confirmed 464336836 Problem 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 Active confirmed 568090550 Problem 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 Active confirmed 88336943 Problem Rheumatoid arthritis involvi ng multiple sites with positive rheumatoid factor M05.79 Active confirmed 540907445 Problem 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 No Points 0 Interpretation Negative Tobacco Use: Question Answer Notes Are you a: former smoker updated 05/25/2021 How long has it been since you last smoked? > 10 years [id number] REASON FOR REFERRAL No Information VITAL SIGNS [...] RESULTS No Results REASON FOR VISIT Med concern MEDICAL (GENERAL) HISTORY Type Description Date Medical History Basal cell carcinoma, face Medical History copd Medical History s/p pacemaker Medical History renal artery stent Medical History Macular degeneration both eyes Medical History diverticulitis Medical History [place] Surgical History heart catheterization Surgical History coronary artery stent 07/2020 Surgical History ventral hernia repair Surgical History tubal ligation Surgical History elbow surgery Surgical History bypass Surgical History appendectomy 02/2019 Surgical History pacemaker 07/2020 Surgical History Stent none also 07/2020 Hospitalization History fractured foot 2017 Hospitalization History stroke [address] [place] 07/2020 Goals Section No Information Health Concerns [...] rally Once a day for 90 day(s) Next Appt Details Provider Name:Joy Samuels, 11:45:00 AM, [address] [place] [address], , [place], [address], Provider Name:Helio Zabala, 2021-08-26 02 :00:00 PM, [address] [place] [address] , [place], [address], Provider Name:Lyndon Schwartz, 2021-09-06 01:45:00 PM, [address] [place] [address], , [place], [address], Provider Name:Lyndon Schwartz, 2021-10-22 02:30:00 PM, [address] [place] [address], , [place], [address], Insurance Providers Payer Name Payer Address Payer Phone Insured Name Patient Relati onship to Insured Coverage Start Date Coverage End Date MEDICARE COMPLETE [facility] [address] [address] [facility] [id number] TIANNA THORNTON
--- OUTSIDE RECORDS SUMMARY | 2021-08-30 14:23 | CCD ---
Author Author [facility] Organization [facility] Address Unknown Phone Unavailable Care Team Providers Care Certified Health Education Specialist Name Role Phone Helio Zabala Unavailable PROBLEMS Type Condition ICD9-CM Code [id number] Code Onset Dates Condition S tatus W/U Status Risk SNOMED Code Notes Problem Seborrheic keratoses L82.1 Active confirmed 857669569 Problem Actinic keratosis L57.0 Active confirmed 20 6096687 Problem History of nonmelanoma skin cancer Z85.828 Activ e confirmed 490986067 Problem Lentigines L81.4 Active confirmed 141563707 Problem Basal cell carcinoma of scalp C44.41 Active confirm ed 067570614 Problem Neuralgia M79.2 Active confirmed 96086874 Problem Dependence on supplemental oxygen Z99.81 Active confirmed 168817620036 Problem 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 Active confirmed 449427539 Problem History of diverticulitis Z87.19 Active confirmed 400278681822845 Problem COPD (chronic obstructive pulmonary disease) jose g e management patient J44.9 Active confirmed 690618648 Problem History of stent insertion of renal artery Z98.890 Active confirmed 677005910 Problem Other chronic pain G89.29 Active confirmed 8 8096507 Problem S/P coronary artery stent placement Z95.5 Acti ve confirmed 793014100 Problem Primary hypertension I10 Active confirmed 39640184 Problem Renovascular hypertension I15.0 Active confirmed 279122034 Problem 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 Active confirmed 239255378 Problem 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 Active confirmed 61938448 Problem Rheumatoid arthritis involvi ng multiple sites with positive rheumatoid factor M05.79 Active confirmed 139478316 Problem 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 No Points 0 Interpretation Negative Tobacco Use: Question Answer Notes Are you a: former smoker updated 05/25/2021 How long has it been since you last smoked? > 10 years [id number] REASON FOR REFERRAL No Information VITAL SIGNS [...] RESULTS No Results REASON FOR VISIT cough MEDICAL (GENERAL) HISTORY Type Description Date Medical History Basal cell carcinoma, face Medical History copd Medical History s/p pacemaker Medical History renal artery stent Medical History Macular degeneration both eyes Medical History diverticulitis Medical History [place] Surgical History heart catheterization Surgical History coronary artery stent 07/2020 Surgical History ventral hernia repair Surgical History tubal ligation Surgical History elbow surgery Surgical History bypass Surgical History appendectomy 02/2019 Surgical History pacemaker 07/2020 Surgical History Stent none also 07/2020 Hospitalization History fractured foot 2017 Hospitalization History stroke [address] [facility] 07/2020 Goals Section No Information Health Concerns [...] x 3 doses Next Appt Details Provider Name:Burt Abdul, 2021-08-12 09:45:00 AM, [facility], , [place], [address], Provider Name:Joy Samuels, 11:45:00 AM, [address] [place] [address], , [place], [address], Provider Name:Helio Zabala, 2021-08-26 02 :00:00 PM, [address] [facility], , [place], [address], Provider Name:Lyndon Schwartz, 2021-09-06 01:45:00 PM, [address], , [place], [address], Provider Name:Lyndon Schwartz, 2021-10-22 02:30:00 PM, [address], , [place], [address], Insurance Providers Payer Name Payer Address Payer Phone Insured Name Patient Relati onship to Insured Coverage Start Date Coverage End Date MEDICARE [employer]PLETE [employer] [address] [address] [facility] [id number] TIANNA THORNTON self
--- OUTSIDE RECORDS SUMMARY | 2021-08-30 14:24 | CCD ---
Author Author [facility] [employer] [facility] [employer] Organization [facility] [employer] Address Unknown Phone Unavailable Care Team Providers Care Quilt Sewer Name Role Phone Helio Zabala Unavailable PROBLEMS Type Condition ICD9-CM Code [id number] Code Onset Dates Condition S tatus W/U Status Risk SNOMED Code Notes Problem Seborrheic keratoses L82.1 Active confirmed 075708702 Problem Actinic keratosis L57.0 Active confirmed 20 6161463 Problem History of nonmelanoma skin cancer Z85.828 Activ e confirmed 330898175 Problem Lentigines L81.4 Active confirmed 099533522 Problem Basal cell carcinoma of scalp C44.41 Active confirm ed 566452625 Problem Neuralgia M79.2 Active confirmed 77685123 Problem Dependence on supplemental oxygen Z99.81 Active confirmed 340434400256 Problem 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 Active confirmed 721281515 Problem History of diverticulitis Z87.19 Active confirmed 525148598463415 Problem COPD (chronic obstructive pulmonary disease) jose g e management patient J44.9 Active confirmed 825461142 Problem History of stent insertion of renal artery Z98.890 Active confirmed 547651010 Problem Other chronic pain G89.29 Active confirmed 8 0047340 Problem S/P coronary artery stent placement Z95.5 Acti ve confirmed 748317970 Problem Primary hypertension I10 Active confirmed 95256692 Problem Renovascular hypertension I15.0 Active confirmed 143224361 Problem 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 Active confirmed 397065343 Problem 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 > 10 years [id number] REASON FOR REFERRAL No Information VITAL SIGNS [...] RESULTS No Results REASON FOR VISIT refill MEDICAL (GENERAL) HISTORY Type Description Date Medical History Basal cell carcinoma, face Medical History copd Medical History s/p pacemaker Medical History renal artery stent Medical History Macular degeneration both eyes Medical History diverticulitis Medical History [place] Surgical History heart catheterization Surgical History coronary artery stent 07/2020 Surgical History ventral hernia repair Surgical History tubal ligation Surgical History elbow surgery Surgical History bypass Surgical History appendectomy 02/2019 Surgical History pacemaker 07/2020 Surgical History Stent none also 07/2020 Hospitalization History fractured foot 2017 Hospitalization History stroke [address] [facility] 07/2020 Goals Section No Information Health Concerns [...] Provider Name:Helio Zabala, 2021-08-24 03 :30:00 PM, [address] [place] [address], , [place], [address], Provider Name:Joy Samuels, 11:45:00 AM, [address] [place] [address], , [place], [address], Provider Name:Lyndon Schwartz, 2021-09-06 01:45:00 PM, [address] [place] [address], , [place], [address], Provider Name:Lyndon Schwartz, 2021-10-22 02:30:00 PM, [address] [place] [address], , [place], [address], Insurance Providers Payer Name Payer Address Payer Phone Insured Name Patient Relati onship to Insured Coverage Start Date Coverage End Date MEDICARE COMPLETE [facility] [address] [facility] [phone] TIANNA THORNTON self
--- OUTSIDE RECORDS SUMMARY | 2021-08-30 14:24 | CCD ---
Author Author [facility] Digital [employer]ing [facility] [employer]st em[employer] Organization [facility] [employer] Address Unknown Phone Unavailable Care Team Providers Care Social Media Community Manager Name Role Phone Helio Zabala Unavailable PROBLEMS Type Condition ICD9-CM Code TEY26-FN Code Onset Dates Condition S tatus W/U Status Risk SNOMED Code Notes Problem Seborrheic keratoses L82.1 Active confirmed 311539984 Problem Actinic keratosis L57.0 Active confirmed 20 0037432 Problem History of nonmelanoma skin cancer Z85.828 Activ e confirmed 605681617 Problem Lentigines L81.4 Active confirmed 985340687 Problem Basal cell carcinoma of scalp C44.41 Active confirm ed 247398742 Problem Neuralgia M79.2 Active confirmed 57008113 Problem Dependence on supplemental oxygen Z99.81 Active confirmed 071985766089 Problem 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 Active confirmed 730175939 Problem History of diverticulitis Z87.19 Active confirmed 743073069597250 Problem COPD (chronic obstructive pulmonary disease) jose g e management patient J44.9 Active confirmed 908017779 Problem History of stent insertion of renal artery Z98.890 Active confirmed 290481166 Problem Other chronic pain G89.29 Active confirmed 8 6226880 Problem S/P coronary artery stent placement Z95.5 Acti ve confirmed 037687295 Problem Primary hypertension I10 Active confirmed 99216808 Problem Renovascular hypertension I15.0 Active confirmed 964458178 Problem 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 Active confirmed 934400551 Problem 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 > 10 years [id number] REASON FOR REFERRAL No Information VITAL SIGNS [...] both eyes Medical History diverticulitis Medical History [place] Surgical History heart catheterization Surgical History coronary artery stent 07/2020 Surgical History ventral hernia repair Surgical History tubal ligation Surgical History elbow surgery Surgical History bypass Surgical History appendectomy 02/2019 Surgical History pacemaker 07/2020 Surgical History Stent none also 07/2020 Hospitalization History fractured foot 2017 Hospitalization History stroke [address] [facility] 07/2020 Goals Section No Information Health Concerns [...] Provider Name:Helio Zabala, 2021-08-24 03 :30:00 PM, [address] [place] [address] , [place], [address], Provider Name:Joy Samuels, 11:45:00 AM, [address] [place] [address], , [place], [address], Provider Name:Lyndon Schwartz, 2021-09-02 02:30:00 PM, [address] [place] [address], , [place], [address], Provider Name:Lyndon Schwartz, 2021-09-06 01:45:00 PM, [address] [place] [address], , [place], [address], Insurance Providers Payer Name Payer Address Payer Phone Insured Name Patient Relati onship to Insured Coverage Start Date Coverage End Date MEDICARE COMPLETE [facility] [address] [address] [facility] [phone] TIANNA THORNTON self
--- OUTSIDE RECORDS SUMMARY | 2021-08-30 14:26 | CCD ---
Author Author [facility] Organization [facility] Address Unknown Phone Unavailable Care Team Providers Care Ax Survey Worker Name Role Phone Baljit Zabala MD Unavailable [...] PA Unavailable [facility] Unavailable Unavailable Trickey, J Zari PA Unavailable [...] Unavailable Trickey, J Zari PA Unavailable Unavailable VANESSA ALVARES ALBERT DONOR TECHNICIAN Unavailable Unavailable VANESSA ALVARES ALBERT DONOR TECHNICIAN Unavailable Unavailable VANESSA ALVARES ALBERT DONOR TECHNICIAN Unavailable Unavailable VANESSA ALVARES ALBERT DONOR TECHNICIAN Unavailable Unavailable VANESSA ALVARES ALBERT DONOR TECHNICIAN Unavailable Unavailable DIA, VANESSA ALBERT DONOR TECHNICIAN Unavailable Unavailable VANESSA ALVARES ALBERT DONOR TECHNICIAN Unavailable Unavailable DIA, VANESSA ALBERT DONOR TECHNICIAN Unavailable Unavailable DIA, VANESSA ALBERT DONOR TECHNICIAN Unavailable Unavailable DIA, VANESSA ALBERT DONOR TECHNICIAN Unavailable Unavailable DIA, VANESSA ALBERT DONOR TECHNICIAN Unavailable Unavailable DIA, VANESSA ALBERT DONOR TECHNICIAN Unavailable Unavailable DIA, VANESSA ALBERT DONOR TECHNICIAN Unavailable Unavailable DIA, VANESSA ALBERT DONOR TECHNICIAN Unavailable Unavailable ALVARES, VANESSA ALBERT DONOR TECHNICIAN Unavailable Unavailable ALVARES, VANESSA ALBERT DONOR TECHNICIAN Unavailable Unavailable ALVARES, VANESSA ALBERT DONOR TECHNICIAN Unavailable Unavailable ALVARES, VANESSA ALBERT DONOR TECHNICIAN Unavailable Unavailable ALVARES, VANESSA ALBERT DONOR TECHNICIAN Unavailable Unavailable ALVARES, VANESSA ALBERT DONOR TECHNICIAN Unavailable Unavailable ALVARES, VANESSA ALBERT DONOR TECHNICIAN Unavailable Unavailable ALVARES, VANESSA ALBERT DONOR TECHNICIAN Unavailable Unavailable ALVARES, VANESSA ALBERT DONOR TECHNICIAN Unavailable Unavailable ALVARES, VANESSA ALBERT DONOR TECHNICIAN Unavailable Unavailable ALVARES, VANESSA ALBERT DONOR TECHNICIAN Unavailable Unavailable ALVARES, VANESSA ALBERT DONOR TECHNICIAN Unavailable Unavailable ALVARES, VANESSA ALBERT DONOR TECHNICIAN Unavailable Unavailable ALVARES, VANESSA ALBERT DONOR TECHNICIAN Unavailable Unavailable ALVARES, VANESSA ALBERT DONOR TECHNICIAN Unavailable Unavailable ALVARES, VANESSA ALBERT DONOR TECHNICIAN Unavailable Unavailable ALVARES, VANESSA ALBERT DONOR TECHNICIAN Unavailable Unavailable ALVARES, VANESSA ALBERT DONOR TECHNICIAN Unavailable Unavailable ALVARES, VANESSA ALBERT DONOR TECHNICIAN Unavailable Unavailable ALVARES, VANESSA ALBERT DONOR TECHNICIAN Unavailable Unavailable ALVARES, VANESSA ALBERT DONOR TECHNICIAN Unavailable Unavailable ALVARES, VANESSA ALBERT DONOR TECHNICIAN Unavailable Unavailable ALVARES, VANESSA ALBERT DONOR TECHNICIAN Unavailable Unavailable ALVARES, VANESSA ALBERT DONOR TECHNICIAN Unavailable Unavailable ALVARES, VANESSA ALBERT DONOR TECHNICIAN Unavailable Unavailable ALVARES, VANESSA ALBERT DONOR TECHNICIAN Unavailable Unavailable ALVARES, VANESSA ALBERT DONOR TECHNICIAN Unavailable Unavailable ALVARES, VANESSA ABLERT DONOR TECHNICIAN Unavailable Unavailable ALVARES, VANESSA ALBERT DONOR TECHNICIAN Unavailable Unavailable ALVARES, VANESSA ALBERT DONOR TECHNICIAN Unavailable Unavailable ALVARES, VANESSA ALBERT DONOR TECHNICIAN Unavailable Unavailable ALVARES, VANESSA ALBERT DONOR TECHNICIAN Unavailable Unavailable ALVARES, VANESSA ALBERT DONOR TECHNICIAN Unavailable Unavailable ALVARES, VANESSA ALBERT DONOR TECHNICIAN Unavailable Unavailable ALVARES, VANESSA ALBERT DONOR TECHNICIAN Unavailable Unavailable ALVARES, VANESSA ALBERT DONOR TECHNICIAN Unavailable Unavailable ALVARES, VANESSA ALBERT DONOR TECHNICIAN Unavailable Unavailable SYMENOW, G CHRISTOPHER PA Unavailable [...] Unavailable SYMENOW, G CHRISTOPHER PA Unavailable Unavailable DREA TAO JR Unavailable Unavailable Pauline Hernandez MD Unavailable Unavailable Pauline Hernandez MD Unavailable Unavailable Pauline Hernandez MD Unavailable Unavailable Pauline Hernandez MD Unavailable Unavailable Pauline Hernandez MD Unavailable Unavailable Pauline Hernandez MD Unavailable Unavailable Pauline Hernandez MD Unavailable Unavailable Pauline Hernandez MD Unavailable Unavailable Pauline Hernandez MD Unavailable Unavailable Pauline Hernandez MD Unavailable Unavailable Pauline Hernandez MD Unavailable Unavailable MARIYL, NING ANTHONY PA Unavailable Unavailable MARILY, NING [...] PA Unavailable Unavailable KWAME TAO JR Unavailable [phone] KWAME TAO JR Unavailable [phone] KWAME TAO JR Unavailable [phone] Franny YOUNGER Unavailable [phone] Franny YOUNGER Unavailable [phone] Franny YOUNGER Unavailable [phone] Franny YOUNGER Unavailable [phone] Franny YOUNGER Unavailable [phone] DREA BLEDSOE Unavailable Unavailable BEM, ANA MD Unavailable Unavailable BEM, ANA MD Unavailable Unavailable BEM, ANA MD Unavailable Unavailable BEM, ANA MD Unavailable Unavailable BEM, ANA MD Unavailable Unavailable BEM, NAA MD Unavailable Unavailable BEM, NAA MD Unavailable [...] Unavailable RAINA, L SONALI PA Unavailable Unavailable Maria Esther, V BOBY PA-C Unavailable Unavailable Maria Esther, V BOBY PA-C Unavailable Unavailable Maria Esther, V BOBY PA-C Unavailable Unavailable Bullitt, V BOBY PA-C Unavailable Unavailable Bullitt, V BOBY PA-C Unavailable Unavailable Bullitt, V BOBY PA-C Unavailable Unavailable Bullitt, V BOBY PA-C Unavailable Unavailable Bullitt, V BOBY PA-C Unavailable Unavailable Maria Esther, V BOBY PA-C Unavailable Unavailable Bullitt, V BOBY PA-C Unavailable Unavailable Bullitt, V BOBY PA-C Unavailable Unavailable Bullitt, V BOBY PA-C Unavailable Unavailable Bullitt, V BOBY PA-C Unavailable Unavailable Bullitt, V BOBY PA-C Unavailable Unavailable Hsu, W [...] is protected by Article 27-F of the [facility] Public Health law. If you continue you may have access to information: Regarding HIV / AIDS; Provided by facilities licensed or operated by the [facility] Office of Mental Health; or Provided by the [facility] Office for People With Developmental Disabilities. If such information is present, then the following [facility] mandated warning applies: This information has been [...] law may result in a fine or senior living sentence or both. A general authorization for the release of medical or other information is NOT sufficient authorization for further disc losure. Family History Family Member Name Family Member Gender Family Member Status Date o f Status Description Data Source(s) Unknown Male Problem MEDENT ([facility] ) Unknown Unknown Problem MEDENT ([facility] ) Encounters Encounter Providers Location Date Indications Data Source(s ) [place] [address] [facility] [address] 08/27/2021 12:00:00 AM EST eCW1 ([facility]) [place] [address] [facility] [address] 08/26/2021 12:00:00 AM EST eCW1 ([facility]) [place] [address] [facility] [address] 08/26/2021 12:00:00 AM EST eCW1 ([facility]) Outpatient [address] [facility] [place] [address] 08/12/2021 12:00:00 AM EST eCW1 ([facility]) Unknown [address] [facility] [place] [address] 08/12/2021 12:00:00 AM EST eCW1 ([facility]) Unknown [address] [facility] [place] [address] 2021 12:00:00 AM EST eCW1 ([facility]) Outpatient Attender: Zari KATE Main office - [facility] 08/06/2021 07:45:00 AM EST MEDENT ([facility] ) Unknown [address] [facility] [place] [address] 08/04/2021 12:00:00 AM EST eCW1 ([facility]) Unknown [address] [facility] [place] [address] 07/21/2021 12:00:00 AM EDT eCW1 ([facility]) Unknown [address] [facility] [place] [address] 07/12/2021 12:00:00 AM EDT eCW1 ([facility]) Unknown [address] [facility] [place] [address] 07/08/2021 12:00:00 AM EDT eCW1 ([facility]) Unknown [address] [facility] [place] [address] 07/07/2021 12:00:00 AM EDT eCW1 ([facility]) Unknown [address] [facility] [place] [address] 06/29/2021 12:00:00 AM EDT eCW1 ([facility]) Unknown [address] [facility] [place] [address] 06/28/2021 12:00:00 AM EDT eCW1 ([facility]) Outpatient [email or web address].CT-[email or web address].SYR 06/03/2021 11:46:37 AM EDT [facility] Outpatient [address] [facility] [place] [address] 05/25/2021 12:00:00 AM EDT eCW1 ([facility]) Emergency Attender: ANTHONY Preciadoerrer: Eva ALVARES DONOR TECHNICIAN EMERGENCY ROOM-ER 05/20/2021 02:14:00 PM EDT - 05/20/2021 02:35:00 PM EDT [facility] Patient discharged. Unknown [address] [facility] [place] [address] 05/14/2021 12:00:00 AM EDT eCW1 ([facility]) Outpatient [address] [facility] [address] 05/11/2021 12:00:00 AM EDT [facility]CW1 [facility]) (PN Proc 60) Pain Procedure 60 [address] [place] [address] 05/10/2021 12:00:00 AM EDT eCW1 ([facility]) Unknown [address] [facility] [place] [address] 05/10/2021 12:00:00 AM EDT eCW1 ([facility]) Unknown [address] [facility] [place] [address] 05/07/2021 12:00:00 AM EDT eCW1 ([facility]) Outpatient Attender: Zari KATE Main office - [facility] 05/06/2021 08:00:00 AM EDT MEDENT ([facility]AL[facility]) Unknown [address] [facility] [address] 05/04/2021 12:00:00 AM EDT eCW1 ([facility]) Unknown [address] [facility] [place] [address] 04/30/2021 12:00:00 AM EDT eCW1 ([facility]) Unknown [address] [facility] [place] [address] 04/12/2021 12:00:00 AM EDT eCW1 ([facility]) Unknown [address] [facility], [facility] [address] 04/08/2021 12:00:00 AM EDT eCW1 ([facility]) Outpatient [address] [facility] [id number] 04/08/2021 12:00:00 AM EDT eCW1 ([facility]) Unknown [address] [facility], [facility] [address] 04/02/2021 12:00:00 AM EDT eCW1 ([facility]) Outpatient Attender: BOBY MARTINES 04/2021 12:00:00 AM EDT - 04/01/2021 01:43:23 PM EDT [facility] Unknown [address] [facility] [address] 03/26/2021 12:00:00 AM EDT eCW1 ([facility]) (PN Proc 45) Pain Procedure 45 [address] [place] [address] 03/25/2021 12:00:00 AM EDT eCW1 ([facility]) Unknown [address] [facility] [address] 03/09/2021 12:00:00 AM EDT eCW1 ([facility]) Outpatient [address] [facility] [id number] 02/26/2021 12:00:00 AM EDT eCW1 ([facility]) Outpatient CT-ANUPAM.HUMA 02/25/2021 12:48:47 PM EDT [facility] Unknown [address] [facility] [address] 02/25/2021 12:00:00 AM EDT eCW1 ([facility]) Unknown [address] [facility] [address] 02/16/2021 12:00:00 AM EDT eCW1 ([facility]) Outpatient [address] [facility] [address] 02/16/2021 12:00:00 AM EDT eCW1 ([facility]) Unknown [address] [facility] [place] [address] 02/11/2021 12:00:00 AM EDT eCW1 ([facility]) Unknown [address] [facility] [place] [address] 02/10/2021 12:00:00 AM EDT eCW1 ([facility]) Outpatient Referrer: Zari KATE 01/27/2021 12:00:00 A M EDT Low back pain [facility] Low back pain Unknown [address] [facility] [place] [address] 01/25/2021 12:00:00 AM EDT eCW1 ([facility]) Outpatient Attender: Zari KATE [facility] 01/19/2021 10:45:00 AM EDT MEDENT ([facility]) Unknown [address] [facility] [place] [address] 01/14/2021 12:00:00 AM EDT eCW1 ([facility]) Unknown [address] [facility] [place] [address] 01/08/2021 12:00:00 AM EDT eCW1 ([facility]) Outpatient [address] [facility] [place] [address] 01/07/2021 12:00:00 AM EDT eCW1 ([facility]) Outpatient [address] [facility] [place] [address] 12/30/2020 12:00:00 AM EDT eCW1 ([facility]) Unknown [address] [facility] [place] [address] 12/29/2020 12:00:00 AM EDT eCW1 ([facility]) Outpatient SJP.GINA-ANUPAM 12/16/2020 09:19:29 PM EDT [facility] Unknown [address] [facility] [place] [address] 12/15/2020 12:00:00 AM EDT eCW1 ([facility]) Unknown [address] [facility], [place] [address] 11/20/2020 12:00:00 AM EST eCW1 ([facility]) Outpatient Attender: BOBY TORRES-SJPJosé MiguelGINA 12:00:00 AM EST - 11/19/2020 03:15:17 PM EST [facility] Outpatient TAMERASJRicGINA 11/19/2020 12:00:00 AM EST [facility] Unknown [address] [facility] [place] [address] 11/12/2020 12:00:00 AM EST eCW1 ([facility]) Unknown [address] [facility] [place] [address] 10/27/2020 12:00:00 AM EST eCW1 ([facility]) Unknown [address] [facility] [place] [address] 10/27/2020 12:00:00 AM EST eCW1 ([facility]) Office Visit Attender: Zari KATE [facility] - [facility] 10/21/2020 11:00:00 AM EST MEDENT ([facility]) Unknown [address] [facility] [address] 10/08/2020 12:00:00 AM EST eCW1 ([facility]) Unknown [address] [facility] [place] [address] 10/08/2020 12:00:00 AM EST eCW1 ([facility]) Outpatient Attender: Helio LOPEZeferrer: ALBERT ALVARES NP 10/02/2020 04:30:00 PM [facility] Outpatient [address] [facility] [place] [address] 09/29/2020 12:00:00 AM EST eCW1 ([facility]) Unknown [address] [facility] [place] [address] 09/23/2020 12:00:00 AM EST eCW1 ([facility]) Unknown [address] [facility] [place] [address] 09/16/2020 12:00:00 AM EST eCW1 ([facility]) Unknown [address] [facility] [place] [address] 09/04/2020 12:00:00 AM EST eCW1 ([facility]) Outpatient Attender: BOBY MUJICA.GINA 04/2020 12:00:00 AM EST - 09/01/2020 12:01:58 PM EST [facility] Unknown [address] [facility] [address] 09/01/2020 12:00:00 AM EST eCW1 ([facility]) Emergency Attender: LEIGHANN Fountain PAAttender: SONALI PARIS PAReferrer: ALBERT ALVARES EMERGENCY ROOM-ER 08/25/2020 06:47:00 PM EST - 08/25/2020 08:50:00 PM [facility] Patient discharged. Outpatient Attender: LEIGHANN STAHL PAConsultant: Carissa griffin [facility] [id number] 08/25/2020 06:22:00 PM [facility] Office Visit Attender: Zari KATE Main office - [facility] 08/19/2020 09:45:00 AM EST MEDENT ([facility]) Unknown [address] [facility] [place] [address] 08/18/2020 12:00:00 AM EST eCW1 ([facility]) Outpatient BRIAN-YANGP 08/13/2020 10:30:12 AM EST [facility] Outpatient BRIAN-ANUPAM.GINA 08/13/2020 12:00:00 AM EST [facility] Outpatient Attender: BOBY TORRES-GINA 01/2020 12:00:00 AM EST - 07/30/2020 12:44:02 PM EST [facility] ([facility]) Transition of Care Visit [address] [place] [address] 07/30/2020 12:00:00 AM EST eCW1 ([facility]) Unknown [address] [facility], [place] [address] 07/27/2020 12:00:00 AM EST eCW1 ([facility]) Inpatient Attender: Kai Suggs angle: Pauline Hernandez MDAdmitter: Pauline Hernandez MDConsultant: Josie Lockett MD [id number] 07/23/2020 08:4 6:24 PM EDT - 07/28/2020 02:41:[address] [facility] Patient discharged. Emergency Attender: IVORY Preciadoerrer: ASHKAN ALVARES NP EMERGENCY ROOM-ER 07/23/2020 04:11:00 PM EDT - 07/23/2020 06:42:00 PM [facility] Patient discharged. Unknown [address] [facility], [facility] [address] 07/14/2020 12:00:00 AM EDT eCW1 ([facility]) Outpatient Attender: Helio Waltoner: ALBERT ALVARES NP 05/21/2020 01:00:00 PM [facility] Emergency Attender: ANTHONY Preciadoerrer: Eva ALVARES NP EMERGENCY ROOM-ER 03/23/2019 04:00:00 AM EDT - 03/23/2019 12:15:00 PM [facility] Emergency Attender: Yajaira SHAHID Attender: SONALI Mauricio: ALBERT ALVARES NP EMERGENCY ROOM-ER 03/16/2019 07:20:00 PM EDT - 03/16/2019 09:45:00 PM [facility] Patient discharged. Inpatient Attender: KWAME TAO JR Attender: KWAME TAO JRAdmitter: DERICK Lainez: ALBERT ALVARES NP EMERGENCY ROOM-2N 04/01/2018 12:12:00 AM EDT - 04/01/2018 03:22:00 PM [facility] Emergency Attender: ANTHONY CALIXTO PAReferrer: Eva ALVARES DONOR TECHNICIAN EMERGENCY ROOM-ER 12/08/2017 08:00:00 AM EDT - 12/08/2017 11:46:00 AM [facility] Inpatient Attender: LEIGHANN Fountain PAAttender: YAJAIRA MACKAYdmitter: YAJAIRA YOUNGERReferrer: ALBERT ALVARES DONOR TECHNICIAN EMERGENCY ROOM-2N 11/08/2017 02:04:00 PM EST - 11/06/2017 11:18:00 AM [facility] Outpatient Attender: ANA HINTON MDReferrer: ALBERT Vidal P 04/12/2017 10:38:00 AM [facility] Outpatient Attender: ALBERT ALVARES NPReferrer: CANDE ALVARES DONOR TECHNICIAN EMERGENCY ROOM-CT 02/16/2017 08:00:00 AM EDT - 02/16/2017 08:00:00 AM [facility] Emergency Attender: YAJAIRA YOUNGER EMERGENCY ROOM-ER 10/23 10:27:00 AM EST - 10/23/2016 02:26:00 PM [facility] Emergency Attender: LEIGHANN KATE EMERGENCY ROOM- ER 07/26/2016 02:25:00 AM EDT - 07/26/2016 07:23:00 AM [facility] Immunizations Vaccine Date Status Description Data Source(s) Pfizer #3 dose COVID-19 (given elsewhere) SARSCOV2 VAC 30MCG/0.3ML IM 08/25/2021 02:28:00 PM EST completed eCW1 ([facility]) Pfizer #3 dose COVID-19 (given elsewhere) SARSCOV2 VAC 30MCG/0.3ML IM 08/25/2021 02:28:00 PM EST completed eCW1 ([facility]) Pfizer #3 dose COVID-19 (given elsewhere) SARSCOV2 VAC 30MCG/0.3ML IM 08/25/2021 02:28:00 PM EST completed eCW1 ([facility]) COVID-19 VACCINE Pfizer 08/25/2021 12:00:00 AM EST completed [employer] Vaccine Series Complete: YESThis Data wa s Submitted to [facility] Via [employer]. COVID-19 VACC, MRNA(PFIZER)/PF 08/25/2021 12:00:00 AM EST completed [facility] COVID-19 dose #2 given elsewhere Unspecified 11/15/2020 04:0 1:00 PM EST completed eCW1 ([facility]) COVID-19 dose #2 given elsewhere Unspecified 11/15/2020 04:0 1:00 PM EST completed eCW1 ([facility]) COVID-19 dose #2 given elsewhere Unspecified 11/15/2020 04:0 1:00 PM EST completed eCW1 ([facility]) COVID-19 dose #2 given elsewhere Unspecified 11/15/2020 04:0 1:00 PM EST completed eCW1 ([facility]) COVID-19 dose #2 given elsewhere Unspecified 11/15/2020 04:0 1:00 PM EST completed eCW1 ([facility]) COVID-19 dose #2 given elsewhere Unspecified 11/15/2020 04:0 1:00 PM EST completed eCW1 ([facility]) COVID-19 dose #2 given elsewhere Unspecified 11/15/2020 04:0 1:00 PM EST completed eCW1 ([facility]) COVID-19 dose #2 given elsewhere Unspecified 11/15/2020 04:0 1:00 PM EST completed eCW1 ([facility]) COVID-19 dose #2 given elsewhere Unspecified 11/15/2020 04:0 1:00 PM EST completed eCW1 ([facility]) COVID-19 dose #2 given elsewhere Unspecified 11/15/2020 04:0 1:00 PM EST completed eCW1 ([facility]) COVID-19 dose #2 given elsewhere Unspecified 11/15/2020 04:0 1:00 PM EST completed eCW1 ([facility]) COVID-19 dose #2 given elsewhere Unspecified 11/15/2020 04:0 1:00 PM EST completed eCW1 ([facility]) COVID-19 dose #2 given elsewhere Unspecified 11/15/2020 04:0 1:00 PM EST completed eCW1 ([facility]) COVID-19 dose #2 given elsewhere Unspecified 11/15/2020 04:0 1:00 PM EST completed eCW1 ([facility]) COVID-19 dose #2 given elsewhere Unspecified 11/15/2020 04:0 1:00 PM EST completed eCW1 ([facility]) COVID-19 dose #2 given elsewhere Unspecified 11/15/2020 04:0 1:00 PM EST completed eCW1 ([facility]) COVID-19 dose #2 given elsewhere Unspecified 11/15/2020 04:0 1:00 PM EST completed eCW1 ([facility]) COVID-19 dose #2 given elsewhere Unspecified 11/15/2020 04:0 1:00 PM EST completed eCW1 ([facility]) COVID-19 dose #2 given elsewhere Unspecified 11/15/2020 04:0 1:00 PM EST completed eCW1 ([facility]) COVID-19 dose #2 given elsewhere Unspecified 11/15/2020 04:0 1:00 PM EST completed eCW1 ([facility]) COVID-19 dose #2 given elsewhere Unspecified 11/15/2020 04:0 1:00 PM EST completed eCW1 ([facility]) COVID-19 dose #2 given elsewhere Unspecified 11/15/2020 04:0 1:00 PM EST completed eCW1 ([facility]) COVID-19 dose #2 given elsewhere Unspecified 11/15/2020 04:0 1:00 PM EST completed eCW1 ([facility]) COVID-19 dose #2 given elsewhere Unspecified 11/15/2020 04:0 1:00 PM EST completed eCW1 ([facility]) COVID-19 dose #2 given elsewhere Unspecified 11/15/2020 04:0 1:00 PM EST completed eCW1 ([facility]) COVID-19 dose #2 given elsewhere Unspecified 11/15/2020 04:0 1:00 PM EST completed eCW1 ([facility]) COVID-19 dose #2 given elsewhere Unspecified 11/15/2020 04:0 1:00 PM EST completed eCW1 ([facility]) COVID-19 dose #2 given elsewhere Unspecified 11/15/2020 04:0 1:00 PM EST completed eCW1 ([facility]) COVID-19 dose #2 given elsewhere Unspecified 11/15/2020 04:0 1:00 PM EST completed eCW1 ([facility]) COVID-19 dose #2 given elsewhere Unspecified 11/15/2020 04:0 1:00 PM EST completed eCW1 ([facility]) COVID-19 dose #2 given elsewhere Unspecified 11/15/2020 04:0 1:00 PM EST completed eCW1 ([facility]) COVID-19 dose #2 given elsewhere Unspecified 11/15/2020 04:0 1:00 PM EST completed eCW1 ([facility]) COVID-19 dose #2 given elsewhere Unspecified 11/15/2020 04:0 1:00 PM EST completed eCW1 ([facility]) COVID-19 dose #2 given elsewhere Unspecified 11/15/2020 04:0 1:00 PM EST completed eCW1 ([facility]) COVID-19 dose #2 given elsewhere Unspecified 11/15/2020 04:0 1:00 PM EST completed eCW1 ([facility]) COVID-19 dose #2 given elsewhere Unspecified 11/15/2020 04:0 1:00 PM EST completed eCW1 ([facility]) COVID-19 dose #2 given elsewhere Unspecified 11/15/2020 04:0 1:00 PM EST completed eCW1 ([facility]) COVID-19 dose #2 given elsewhere Unspecified 11/15/2020 04:0 1:00 PM EST completed eCW1 ([facility]) COVID-19 dose #2 given elsewhere Unspecified 11/15/2020 04:0 1:00 PM EST completed eCW1 ([facility]) COVID-19 VACCINE Pfizer 11/15/2020 12:00:00 AM EST completed [employer] Vaccine Series Complete: YESThis Data wa s Submitted to [facility] Via [employer]. COVID-19 dose #1 given elsewhere Unspecified 10/25/2020 04:0 0:00 PM EST completed eCW1 ([facility]) COVID-19 dose #1 given elsewhere Unspecified 10/25/2020 04:0 0:00 PM EST completed [facility] [facility] COVID-19 dose #1 given elsewhere Unspecified 10/25/2020 04:0 0:00 PM EST completed eCW1 ([facility]) COVID-19 dose #1 given elsewhere Unspecified 10/25/2020 04:0 0:00 PM EST completed eCW1 ([facility]) COVID-19 dose #1 given elsewhere Unspecified 10/25/2020 04:0 0:00 PM EST completed eCW1 ([facility]) COVID-19 dose #1 given elsewhere Unspecified 10/25/2020 04:0 0:00 PM EST completed eCW1 ([facility]) COVID-19 dose #1 given elsewhere Unspecified 10/25/2020 04:0 0:00 PM EST completed eCW1 ([facility]) COVID-19 dose #1 given elsewhere Unspecified 10/25/2020 04:0 0:00 PM EST completed eCW1 ([facility]) COVID-19 dose #1 given elsewhere Unspecified 10/25/2020 04:0 0:00 PM EST completed eCW1 ([facility]) COVID-19 dose #1 given elsewhere Unspecified 10/25/2020 04:0 0:00 PM EST completed eCW1 ([facility]) COVID-19 dose #1 given elsewhere Unspecified 10/25/2020 04:0 0:00 PM EST completed eCW1 ([facility]) COVID-19 dose #1 given elsewhere Unspecified 10/25/2020 04:0 0:00 PM EST completed eCW1 ([facility]) COVID-19 dose #1 given elsewhere Unspecified 10/25/2020 04:0 0:00 PM EST completed eCW1 ([facility]) COVID-19 dose #1 given elsewhere Unspecified 10/25/2020 04:0 0:00 PM EST completed eCW1 ([facility]) COVID-19 dose #1 given elsewhere Unspecified 10/25/2020 04:0 0:00 PM EST completed eCW1 ([facility]) COVID-19 dose #1 given elsewhere Unspecified 10/25/2020 04:0 0:00 PM EST completed eCW1 ([facility]) COVID-19 dose #1 given elsewhere Unspecified 10/25/2020 04:0 0:00 PM EST completed eCW1 ([facility]) COVID-19 dose #1 given elsewhere Unspecified 10/25/2020 04:0 0:00 PM EST completed eCW1 ([facility]) COVID-19 dose #1 given elsewhere Unspecified 10/25/2020 04:0 0:00 PM EST completed eCW1 ([facility]) COVID-19 dose #1 given elsewhere Unspecified 10/25/2020 04:0 0:00 PM EST completed eCW1 ([facility]) COVID-19 dose #1 given elsewhere Unspecified 10/25/2020 04:0 0:00 PM EST completed eCW1 ([facility]) COVID-19 dose #1 given elsewhere Unspecified 10/25/2020 04:0 0:00 PM EST completed eCW1 ([facility]) COVID-19 dose #1 given elsewhere Unspecified 10/25/2020 04:0 0:00 PM EST completed eCW1 ([facility]) COVID-19 dose #1 given elsewhere Unspecified 10/25/2020 04:0 0:00 PM EST completed eCW1 ([facility]) COVID-19 dose #1 given elsewhere Unspecified 10/25/2020 04:0 0:00 PM EST completed eCW1 ([facility]) COVID-19 dose #1 given elsewhere Unspecified 10/25/2020 04:0 0:00 PM EST completed eCW1 ([facility]) COVID-19 dose #1 given elsewhere Unspecified 10/25/2020 04:0 0:00 PM EST completed eCW1 ([facility]) COVID-19 dose #1 given elsewhere Unspecified 10/25/2020 04:0 0:00 PM EST completed eCW1 ([facility]) COVID-19 dose #1 given elsewhere Unspecified 10/25/2020 04:0 0:00 PM EST completed eCW1 ([facility]) COVID-19 dose #1 given elsewhere Unspecified 10/25/2020 04:0 0:00 PM EST completed eCW1 ([facility]) COVID-19 dose #1 given elsewhere Unspecified 10/25/2020 04:0 0:00 PM EST completed eCW1 ([facility]) COVID-19 dose #1 given elsewhere Unspecified 10/25/2020 04:0 0:00 PM EST completed eCW1 ([facility]) COVID-19 dose #1 given elsewhere Unspecified 10/25/2020 04:0 0:00 PM EST completed eCW1 ([facility]) COVID-19 dose #1 given elsewhere Unspecified 10/25/2020 04:0 0:00 PM EST completed eCW1 ([facility]) COVID-19 dose #1 given elsewhere Unspecified 10/25/2020 04:0 0:00 PM EST completed eCW1 ([facility]) COVID-19 dose #1 given elsewhere Unspecified 10/25/2020 04:0 0:00 PM EST completed eCW1 ([facility]) COVID-19 dose #1 given elsewhere Unspecified 10/25/2020 04:0 0:00 PM EST completed eCW1 ([facility]) COVID-19 dose #1 given elsewhere Unspecified 10/25/2020 04:0 0:00 PM EST completed eCW1 ([facility]) COVID-19 dose #1 given elsewhere Unspecified 10/25/2020 04:0 0:00 PM EST completed eCW1 ([facility]) COVID-19 VACCINE Pfizer 10/25/2020 12:00:00 AM EST completed [facility] Vaccine Series Complete: NOThis Data was Submitted to [facility] Via [email or web address] in 2011. IIV4 07/25/2020 12:00:00 AM EDT completed <t d ID="[id number]">Flu Vaccine =>6MOS Quad Pres-Free</td><td>07/25/2020</td><td></td> [facility] Medications Medication Brand Name Start Date Product Form Dose Route Admi nistrative Instructions Pharmacy Instructions Status Indications Reaction Description Data Source(s) 0.4 mg 08/26/2021 12:00:00 AM EST tablet, sublingual [address]ACE ONE TABLET UNDER THE TONGUE EVERY 5 MINUTES FOR UP TO 3 DOSES NEEDED FOR CHEST PAIN. IF CHEST PAIN STILL PERSISTS CONTACT [address] ONE TABLET UNDER THE TONGUE EVERY 5 MINUTES FOR UP TO 3 DOSES NEEDED FOR CHEST PAIN. IF CHEST PAIN STILL PERSISTS CONTACT 911 SOLD: 08/27/2021 [facility] 20 mg 08/23/2021 12:00:00 AM EST tablet 5 TAKE ONE TABLET BY MOUTH EVERY DAY FOR 5 DAYS TAKE ONE TABLET BY MOUTH EVERY DAY FOR 5 DAYS SOLD: 08/23/2021 [facility] 25 mg 08/13/2021 12:00:00 AM EST tablet 90 TAKE ONE-HALF TABLET BY MOUTH TWICE A DAY WITH FOOD TAKE ONE-HALF TABLET BY MOUTH TWICE A DAY WITH FOOD SO LD: 08/15/2021 [facility] Potassium Chloride 10 MEQ Extended Release Oral Tablet POTAS SIUM CHLORIDE 08/13/2021 12:00:00 AM EST tablet extended release 90 TAKE ONE TABLET BY MOUTH EVERY DAY WITH FOOD TAKE ONE TABLET BY MOUTH EVERY DAY WITH FOOD SOLD: 08/15/2021 [facility] 60 mg 08/12/2021 12:00:00 AM EST tablet extended release 24 hr 90 TAKE ONE TABLET BY MOUTH EVERY MORNING TAKE ONE TABLET BY MOUTH EVERY MORNING SOLD: 08/13/2021 [facility] Citalopram 20 MG Oral Tablet CITALOPRAM HYDROBROMIDE 08/05/2021 12:00:00 AM EST tablet 90 TAKE ONE TABLET BY MOUTH EVERY D AY TAKE ONE TABLET BY MOUTH EVERY DAY SOLD: 08/06/2021 [facility] 150 mg 07/22/2021 12:00:00 AM EDT capsule 60 TAKE ONE CAPSULE BY MOUTH TWICE A DAY MAXIMUM DAILY DOSE = 2 TAKE ONE CAPSULE BY MOUTH TWICE A DAY MA XIMUM DAILY DOSE = 2 SOLD: 08/23/2021 [facility] 150 mg 07/22/2021 12:00:00 AM EDT capsule 60 TAKE ONE CAPSULE BY MOUTH TWICE A DAY MAXIMUM DAILY DOSE = 2 TAKE ONE CAPSULE BY MOUTH TWICE A DAY MA XIMUM DAILY DOSE = 2 SOLD: 07/23/2021 [facility] pregabalin 150 MG Oral Capsule [Lyrica] Lyrica 150 MG Lyrica 150 MG 07/21/2021 12:00:00 AM EDT 1.0 {capsule} active L yrica 150 MG eCW1 ([facility]) pregabalin 150 MG Oral Capsule [Lyrica] Lyrica 150 MG Lyrica 150 MG 07/21/2021 12:00:00 AM EDT 1.0 {capsule} active L yrica 150 MG eCW1 ([facility]) pregabalin 150 MG Oral Capsule [Lyrica] Lyrica 150 MG Lyrica 150 MG 07/21/2021 12:00:00 AM EDT 1.0 {capsule} active L yrica 150 MG eCW1 ([facility]) pregabalin 150 MG Oral Capsule [Lyrica] Lyrica 150 MG Lyrica 150 MG 07/21/2021 12:00:00 AM EDT 1.0 {capsule} active L yrica 150 MG eCW1 ([facility]) pregabalin 150 MG Oral Capsule [Lyrica] Lyrica 150 MG Lyrica 150 MG 07/21/2021 12:00:00 AM EDT 1.0 {capsule} active L yrica 150 MG eCW1 ([facility]) pregabalin 150 MG Oral Capsule [Lyrica] Lyrica 150 MG Lyrica 150 MG 07/21/2021 12:00:00 AM EDT 1.0 {capsule} active L yrica 150 MG eCW1 ([facility]) pregabalin 150 MG Oral Capsule [Lyrica] Lyrica 150 MG Lyrica 150 MG 07/21/2021 12:00:00 AM EDT 1.0 {capsule} active L yrica 150 MG eCW1 ([facility]) pregabalin 150 MG Oral Capsule [Lyrica] Lyrica 150 MG Lyrica 150 MG 07/21/2021 12:00:00 AM EDT 1.0 {capsule} active L yrica 150 MG eCW1 ([facility]) Acetaminophen 325 MG / Hydrocodone Bitartrate 10 MG Or al Tablet 10-325 mg HYDROCODONE/ACETAMINOPHEN 07/09/2021 12:00:00 AM EDT tablet 28 TAKE ONE TABLET BY MOUTH FOUR TIMES A DAY NEEDED FOR PAIN MAXIMUM DAILY DOSE = 4 TAKE ONE TABLET BY MOUTH FOUR TIMES A DAY NEEDED FOR PAIN MAXIMUM DAILY DOSE = 4 SOLD: 07/09/2021 [facility] Acetaminophen 325 MG / Hydrocodone Caryl trate 10 MG Oral Tablet HYDROcodone- Acetaminophen 10-325 MG HYDROcodone-Acetaminophen 10-325 MG 07/08/2021 12:00:0 0 AM EDT 1.0 {tablet_as_needed} active HYDROcodone-Acetaminophen 10- 325 MG eCW1 ([facility]) Acetaminophen 325 MG / Hydrocodone Caryl trate 10 MG Oral Tablet HYDROcodone- Acetaminophen 10-325 MG HYDROcodone-Acetaminophen 10-325 MG 07/08/2021 12:00:0 0 AM EDT 1.0 {tablet_as_needed} active HYDROcodone-Acetaminophen 10- 325 MG eCW1 ([facility]) Acetaminophen 325 MG / Hydrocodone Caryl trate 10 MG Oral Tablet HYDROcodone- Acetaminophen 10-325 MG HYDROcodone-Acetaminophen 10-325 MG 07/08/2021 12:00:0 0 AM EDT 1.0 {tablet_as_needed} active HYDROcodone-Acetaminophen 10- 325 MG eCW1 ([facility]) Acetaminophen 325 MG / Hydrocodone Caryl trate 10 MG Oral Tablet HYDROcodone- Acetaminophen 10-325 MG HYDROcodone-Acetaminophen 10-325 MG 07/08/2021 12:00:0 0 AM EDT 1.0 {tablet_as_needed} active HYDROcodone-Acetaminophen 10- 325 MG eCW1 ([facility]) Acetaminophen 325 MG / Hydrocodone Caryl trate 10 MG Oral Tablet HYDROcodone- Acetaminophen 10-325 MG HYDROcodone-Acetaminophen 10-325 MG 07/08/2021 12:00:0 0 AM EDT 1.0 {tablet_as_needed} active HYDROcodone-Acetaminophen 10- 325 MG eCW1 ([facility]) Acetaminophen 325 MG / Hydrocodone Caryl trate 10 MG Oral Tablet HYDROcodone- Acetaminophen 10-325 MG HYDROcodone-Acetaminophen 10-325 MG 07/08/2021 12:00:0 0 AM EDT 1.0 {tablet_as_needed} active HYDROcodone-Acetaminophen 10- 325 MG eCW1 ([facility]) 75 mg 07/08/2021 12:00:00 AM EDT tablet 90 TAKE ONE TABLET BY MOUTH ONCE DAILY TAKE ONE TABLET BY MOUTH ONCE DAILY SOLD: 07/09/2021 [facility] Acetaminophen 325 MG / Hydrocodone Caryl trate 10 MG Oral Tablet HYDROcodone- Acetaminophen 10-325 MG HYDROcodone-Acetaminophen 10-325 MG 07/08/2021 12:00:0 0 AM EDT 1.0 {tablet_as_needed} active HYDROcodone-Acetaminophen 10- 325 MG eCW1 ([facility]) Acetaminophen 325 MG / Hydrocodone Caryl trate 10 MG Oral Tablet HYDROcodone- Acetaminophen 10-325 MG HYDROcodone-Acetaminophen 10-325 MG 07/08/2021 12:00:0 0 AM EDT 1.0 {tablet_as_needed} active HYDROcodone-Acetaminophen 10- 325 MG eCW1 ([facility]) Acetaminophen 325 MG / Hydrocodone Caryl trate 10 MG Oral Tablet HYDROcodone- Acetaminophen 10-325 MG HYDROcodone-Acetaminophen 10-325 MG 07/08/2021 12:00:0 0 AM EDT 1.0 {tablet_as_needed} active HYDROcodone-Acetaminophen 10- 325 MG eCW1 ([facility]) Acetaminophen 325 MG / Hydrocodone Caryl trate 10 MG Oral Tablet HYDROcodone- Acetaminophen 10-325 MG HYDROcodone-Acetaminophen 10-325 MG 07/08/2021 12:00:0 0 AM EDT 1.0 {tablet_as_needed} active HYDROcodone-Acetaminophen 10- 325 MG eCW1 ([facility]) 30 mg 06/17/2021 12:00:00 AM EDT [...] 1.0 {tablet} active levoFLOXacin 500 MG eCW1 ([facility]) Levofloxacin 500 MG Oral Tablet levoFLOXacin 500 MG levoFLOX acin 500 MG 05/11/2021 12:00:00 AM EDT 1.0 {tablet} suspende d levoFLOXacin 500 MG eCW1 ([facility]) Levofloxacin 500 MG Oral Tablet levoFLOXacin 500 MG levoFLOX acin 500 MG 05/11/2021 12:00:00 AM EDT 1.0 {tablet} suspende d levoFLOXacin 500 MG eCW1 ([facility]) Levofloxacin 500 MG Oral Tablet levoFLOXacin 500 MG levoFLOX acin 500 MG 05/11/2021 12:00:00 AM EDT 1.0 {tablet} active levoFLOXacin 500 MG eCW1 ([facility]) Levofloxacin 500 MG Oral Tablet levoFLOXacin 500 MG levoFLOX acin 500 MG 05/11/2021 12:00:00 AM EDT 1.0 {tablet} suspende d levoFLOXacin 500 MG eCW1 ([facility]) 500 mg 05/11/2021 12:00:00 AM EDT tablet 10 TAKE ONE TABLET BY MOUTH EVERY DAY FOR 10 DAYS TAKE ONE TABLET BY MOUTH EVERY DAY FOR 10 DAYS SOLD: [facility] Levofloxacin 500 MG Oral Tablet levoFLOXacin 500 MG levoFLOX acin 500 MG 05/11/2021 12:00:00 AM EDT 1.0 {tablet} suspende d levoFLOXacin 500 MG eCW1 ([facility]) Levofloxacin 500 MG Oral Tablet levoFLOXacin 500 MG levoFLOX acin 500 MG 05/11/2021 12:00:00 AM EDT 1.0 {tablet} suspende d levoFLOXacin 500 MG eCW1 ([facility]) Levofloxacin 500 MG Oral Tablet levoFLOXacin 500 MG levoFLOX acin 500 MG 05/11/2021 12:00:00 AM EDT 1.0 {tablet} suspende d levoFLOXacin 500 MG eCW1 ([facility]) Levofloxacin 500 MG Oral Tablet levoFLOXacin 500 MG levoFLOX acin 500 MG 05/11/2021 12:00:00 AM EDT 1.0 {tablet} suspende d levoFLOXacin 500 MG eCW1 ([facility]) Levofloxacin 500 MG Oral Tablet levoFLOXacin 500 MG levoFLOX acin 500 MG 05/11/2021 12:00:00 AM EDT 1.0 {tablet} suspende d levoFLOXacin 500 MG eCW1 ([facility]) Levofloxacin 500 MG Oral Tablet levoFLOXacin 500 MG levoFLOX acin 500 MG 05/11/2021 12:00:00 AM EDT 1.0 {tablet} suspende d levoFLOXacin 500 MG eCW1 ([facility]) Levofloxacin 500 MG Oral Tablet levoFLOXacin 500 MG levoFLOX acin 500 MG 05/11/2021 12:00:00 AM EDT 1.0 {tablet} suspende d levoFLOXacin 500 MG eCW1 ([facility]) Levofloxacin 500 MG Oral Tablet levoFLOXacin 500 MG levoFLOX acin 500 MG 05/11/2021 12:00:00 AM EDT 1.0 {tablet} suspende d levoFLOXacin 500 MG eCW1 ([facility]) Levofloxacin 500 MG Oral Tablet levoFLOXacin 500 MG levoFLOX acin 500 MG 05/11/2021 12:00:00 AM EDT 1.0 {tablet} suspende d levoFLOXacin 500 MG eCW1 ([facility]) Levofloxacin 500 MG Oral Tablet levoFLOXacin 500 MG levoFLOX acin 500 MG 05/11/2021 12:00:00 AM EDT 1.0 {tablet} suspende d levoFLOXacin 500 MG eCW1 ([facility]) Levofloxacin 500 MG Oral Tablet levoFLOXacin 500 MG levoFLOX acin 500 MG 05/11/2021 12:00:00 AM EDT 1.0 {tablet} suspende d levoFLOXacin 500 MG eCW1 ([facility]) Levofloxacin 500 MG Oral Tablet levoFLOXacin 500 MG levoFLOX acin 500 MG 05/11/2021 12:00:00 AM EDT 1.0 {tablet} active levoFLOXacin 500 MG eCW1 ([facility]) Metronidazole 500 MG Oral Tablet METRONIDAZOLE 05/07/2021 12:0 0:00 AM EDT tablet 20 TAKE ONE TABLET BY MOUTH TWICE A DAY NEEDED TAKE ONE TABLET BY MOUTH TWICE A DAY NEEDED SOLD: 05/07/2021 [facility] Acetaminophen 325 MG / Hydrocodone Caryl trate 10 MG Oral Tablet HYDROcodone- Acetaminophen 10-325 MG HYDROcodone-Acetaminophen 10-325 MG 05/04/2021 12:00:0 0 AM EDT 1.0 {tablet_as_needed} active HYDROcodone-Acetaminophen 10- 325 MG eCW1 ([facility]) Acetaminophen 325 MG / Hydrocodone Caryl trate 10 MG Oral Tablet HYDROcodone- Acetaminophen 10-325 MG HYDROcodone-Acetaminophen 10-325 MG 05/04/2021 12:00:0 0 AM EDT 1.0 {tablet_as_needed} active HYDROcodone-Acetaminophen 10- 325 MG eCW1 ([facility]) Acetaminophen 325 MG / Hydrocodone Caryl trate 10 MG Oral Tablet HYDROcodone- Acetaminophen 10-325 MG HYDROcodone-Acetaminophen 10-325 MG 05/04/2021 12:00:0 0 AM EDT 1.0 {tablet_as_needed} active HYDROcodone-Acetaminophen 10- 325 MG eCW1 ([facility]) Acetaminophen 325 MG / Hydrocodone Caryl trate 10 MG Oral Tablet HYDROcodone- Acetaminophen 10-325 MG HYDROcodone-Acetaminophen 10-325 MG 05/04/2021 12:00:0 0 AM EDT 1.0 {tablet_as_needed} active HYDROcodone-Acetaminophen 10- 325 MG eCW1 ([facility]) Acetaminophen 325 MG / Hydrocodone Caryl trate 10 MG Oral Tablet HYDROcodone- Acetaminophen 10-325 MG HYDROcodone-Acetaminophen 10-325 MG 05/04/2021 12:00:0 0 AM EDT 1.0 {tablet_as_needed} active HYDROcodone-Acetaminophen 10- 325 MG eCW1 ([facility]) Acetaminophen 325 MG / Hydrocodone Caryl trate 10 MG Oral Tablet HYDROcodone- Acetaminophen 10-325 MG HYDROcodone-Acetaminophen 10-325 MG 05/04/2021 12:00:0 0 AM EDT 1.0 {tablet_as_needed} active HYDROcodone-Acetaminophen 10- 325 MG eCW1 ([facility]) Acetaminophen 325 MG / Hydrocodone Caryl trate 10 MG Oral Tablet HYDROcodone- Acetaminophen 10-325 MG HYDROcodone-Acetaminophen 10-325 MG 05/04/2021 12:00:0 0 AM EDT 1.0 {tablet_as_needed} active HYDROcodone-Acetaminophen 10- 325 MG eCW1 ([facility]) Acetaminophen 325 MG / Hydrocodone Bitartrate 10 MG Or al Tablet 10-325 mg HYDROCODONE/ACETAMINOPHEN 05/04/2021 12:00:00 AM EDT tablet 28 TAKE ONE TABLET BY MOUTH FOUR TIMES A DAY NEEDED FOR PAIN MAXIMUM DAILY DOSE = 4 TAKE ONE TABLET BY MOUTH FOUR TIMES A DAY NEEDED FOR PAIN MAXIMUM DAILY DOSE = 4 SOLD: 05/04/2021 [facility] Acetaminophen 325 MG / Hydrocodone Caryl trate 10 MG Oral Tablet HYDROcodone- Acetaminophen 10-325 MG HYDROcodone-Acetaminophen 10-325 MG 05/04/2021 12:00:0 0 AM EDT 1.0 {tablet_as_needed} active HYDROcodone-Acetaminophen 10- 325 MG eCW1 ([facility]) Acetaminophen 325 MG / Hydrocodone Caryl trate 10 MG Oral Tablet HYDROcodone- Acetaminophen 10-325 MG HYDROcodone-Acetaminophen 10-325 MG 05/04/2021 12:00:0 0 AM EDT 1.0 {tablet_as_needed} active HYDROcodone-Acetaminophen 10- 325 MG eCW1 ([facility]) Acetaminophen 325 MG / Hydrocodone Caryl trate 10 MG Oral Tablet HYDROcodone- Acetaminophen 10-325 MG HYDROcodone-Acetaminophen 10-325 MG 05/04/2021 12:00:0 0 AM EDT 1.0 {tablet_as_needed} active HYDROcodone-Acetaminophen 10- 325 MG eCW1 ([facility]) 25 mg 05/02/2021 12:00:00 AM EDT tablet 45 TAKE ONE-HALF TABLET BY MOUTH EVERY MORNING WITH FOOD TAKE ONE-HALF TABLET BY MOUTH EVERY MORNING WITH FOOD SOLD: 05/04/2021 [facility] Chlorthalidone 25 MG Oral Tablet CHLORTHALIDONE 05/02/2021 12:0 0:00 AM EDT tablet 45 TAKE ONE-HALF TABLET BY MOUTH EV AMY MORNING WITH FOOD TAKE ONE-HALF TABLET BY MOUTH EVERY MORNING WITH FOOD SOLD: 08/13/2021 [facility] 150 mg 04/02/2021 12:00:00 AM EDT capsule 180 TAKE ONE CAPSULE BY MOUTH TWICE A DAY MAXIMUM DAILY DOSE = 2 TAKE ONE CAPSULE BY MOUTH TWICE A DAY MA XIMUM DAILY DOSE = 2 SOLD: 04/04/2021 [facility] Famotidine 20 MG Oral Tablet FAMOTIDINE 03/28/2021 12:00:00 AM EDT tab let 60 TAKE ONE TABLET BY MOUTH TWICE A DAY TAKE ONE TABLET BY MOUTH TWICE A DAY SOLD: 06/14/2021 [facility] Famotidine 20 MG Oral Tablet FAMOTIDINE 03/28/2021 12:00:00 AM EDT tab let 60 TAKE ONE TABLET BY MOUTH TWICE A DAY TAKE ONE TABLET BY MOUTH TWICE A DAY SOLD: 04/02/2021 [facility] Famotidine 20 MG Oral Tablet FAMOTIDINE 03/28/2021 12:00:00 AM EDT tab let 60 TAKE ONE TABLET BY MOUTH TWICE A DAY TAKE ONE TABLET BY MOUTH TWICE A DAY SOLD: 08/06/2021 [facility] Acetaminophen 325 MG / Hydrocodone Caryl trate 10 MG Oral Tablet HYDROcodone- Acetaminophen 10-325 MG HYDROcodone-Acetaminophen 10-325 MG 03/09/2021 12:00:0 0 AM EDT 1.0 {tablet_as_needed} active HYDROcodone-Acetaminophen 10- 325 MG eCW1 ([facility]) Acetaminophen 325 MG / Hydrocodone Caryl trate 10 MG Oral Tablet HYDROcodone- Acetaminophen 10-325 MG HYDROcodone-Acetaminophen 10-325 MG 03/09/2021 12:00:0 0 AM EDT 1.0 {tablet_as_needed} suspended HYDROcodone-Acetaminophen 10-325 MG eCW1 ([facility]) Acetaminophen 325 MG / Hydrocodone Caryl trate 10 MG Oral Tablet HYDROcodone- Acetaminophen 10-325 MG HYDROcodone-Acetaminophen 10-325 MG 03/09/2021 12:00:0 0 AM EDT 1.0 {tablet_as_needed} suspended HYDROcodone-Acetaminophen 10-325 MG eCW1 ([facility]) Acetaminophen 325 MG / Hydrocodone Caryl trate 10 MG Oral Tablet HYDROcodone- Acetaminophen 10-325 MG HYDROcodone-Acetaminophen 10-325 MG 03/09/2021 12:00:0 0 AM EDT 1.0 {tablet_as_needed} suspended HYDROcodone-Acetaminophen 10-325 MG eCW1 ([facility]) Acetaminophen 325 MG / Hydrocodone Caryl trate 10 MG Oral Tablet HYDROcodone- Acetaminophen 10-325 MG HYDROcodone-Acetaminophen 10-325 MG 03/09/2021 12:00:0 0 AM EDT 1.0 {tablet_as_needed} suspended HYDROcodone-Acetaminophen 10-325 MG eCW1 ([facility]) Acetaminophen 325 MG / Hydrocodone Caryl trate 10 MG Oral Tablet HYDROcodone- Acetaminophen 10-325 MG HYDROcodone-Acetaminophen 10-325 MG 03/09/2021 12:00:0 0 AM EDT 1.0 {tablet_as_needed} active HYDROcodone-Acetaminophen 10- 325 MG eCW1 ([facility]) Acetaminophen 325 MG / Hydrocodone Caryl trate 10 MG Oral Tablet HYDROcodone- Acetaminophen 10-325 MG HYDROcodone-Acetaminophen 10-325 MG 03/09/2021 12:00:0 0 AM EDT 1.0 {tablet_as_needed} suspended HYDROcodone-Acetaminophen 10-325 MG eCW1 ([facility]) Acetaminophen 325 MG / Hydrocodone Caryl trate 10 MG Oral Tablet HYDROcodone- Acetaminophen 10-325 MG HYDROcodone-Acetaminophen 10-325 MG 03/09/2021 12:00:0 0 AM EDT 1.0 {tablet_as_needed} suspended HYDROcodone-Acetaminophen 10-325 MG eCW1 ([facility]) Acetaminophen 325 MG / Hydrocodone Bitartrate 10 MG Or al Tablet 10-325 mg HYDROCODONE/ACETAMINOPHEN 03/09/2021 12:00:00 AM EDT tablet 28 TAKE ONE TABLET BY MOUTH FOUR TIMES A DAY NEEDED FOR PAIN MAXIMUM DAILY DOSE = 4 TAKE ONE TABLET BY MOUTH FOUR TIMES A DAY NEEDED FOR PAIN MAXIMUM DAILY DOSE = 4 SOLD: 03/09/2021 [facility] Acetaminophen 325 MG / Hydrocodone Caryl trate 10 MG Oral Tablet HYDROcodone- Acetaminophen 10-325 MG HYDROcodone-Acetaminophen 10-325 MG 03/09/2021 12:00:0 0 AM EDT 1.0 {tablet_as_needed} suspended HYDROcodone-Acetaminophen 10-325 MG eCW1 ([facility]) 30 mg 03/09/2021 12:00:00 AM EDT capsule,delayed release (DR/EC) 90 TAKE ONE CAPSULE BY MOUTH EVERY MORNING. MAXIMUM DAILY DOSE = 1CAPSULE TAKE ONE CAPSULE BY MOUTH EVERY MORNING. MAXIMUM DAILY DOSE = 1CAPSULE SOLD: 03/09/2021 [facility] Metronidazole 500 MG Oral Tablet metroNIDAZOLE 500 MG [facility] IDAZOLE 500 MG 02/10/2021 12:00:00 AM EDT 1.0 {tablet} active metroNIDAZOLE 500 MG eCW1 ([facility]) Metronidazole 500 MG Oral Tablet Metronidazole 500 MG 2020 12:00:00 AM EDT 1.0 {tablet} active Metronidazo le 500 MG eCW1 ([facility]) Metronidazole 500 MG Oral Tablet metroNIDAZOLE 500 MG [facility] IDAZOLE 500 MG 02/10/2021 12:00:00 AM EDT 1.0 {tablet} suspende d metroNIDAZOLE 500 MG eCW1 ([facility]) Metronidazole 500 MG Oral Tablet metroNIDAZOLE 500 MG [facility] IDAZOLE 500 MG 02/10/2021 12:00:00 AM EDT 1.0 {tablet} suspende d metroNIDAZOLE 500 MG eCW1 ([facility]) Metronidazole 500 MG Oral Tablet metroNIDAZOLE 500 MG [facility] IDAZOLE 500 MG 02/10/2021 12:00:00 AM EDT 1.0 {tablet} suspende d metroNIDAZOLE 500 MG eCW1 ([facility]) Metronidazole 500 MG Oral Tablet metroNIDAZOLE 500 MG [facility] IDAZOLE 500 MG 02/10/2021 12:00:00 AM EDT 1.0 {tablet} suspende d metroNIDAZOLE 500 MG eCW1 ([facility]) Metronidazole 500 MG Oral Tablet Metronidazole 500 MG 2020 12:00:00 AM EDT 1.0 {tablet} active Metronidazo le 500 MG eCW1 ([facility]) Metronidazole 500 MG Oral Tablet METRONIDAZOLE 02/10/2021 12:0 0:00 AM EDT tablet 30 TAKE ONE TABLET BY MOUTH THREE T IMES A DAY TAKE ONE TABLET BY MOUTH THREE TIMES A DAY SOLD: 02/10/2021 [facility] Metronidazole 500 MG Oral Tablet metroNIDAZOLE 500 MG [facility] IDAZOLE 500 MG 02/10/2021 12:00:00 AM EDT 1.0 {tablet} suspende d metroNIDAZOLE 500 MG eCW1 ([facility]) Metronidazole 500 MG Oral Tablet metroNIDAZOLE 500 MG [facility] IDAZOLE 500 MG 02/10/2021 12:00:00 AM EDT 1.0 {tablet} active metroNIDAZOLE 500 MG eCW1 ([facility]) Metronidazole 500 MG Oral Tablet metroNIDAZOLE 500 MG [facility] IDAZOLE 500 MG 02/10/2021 12:00:00 AM EDT 1.0 {tablet} suspende d metroNIDAZOLE 500 MG eCW1 ([facility]) Metronidazole 500 MG Oral Tablet metroNIDAZOLE 500 MG [facility] IDAZOLE 500 MG 02/10/2021 12:00:00 AM EDT 1.0 {tablet} suspende d metroNIDAZOLE 500 MG eCW1 ([facility]) Metronidazole 500 MG Oral Tablet metroNIDAZOLE 500 MG metroN IDAZOLE 500 MG 02/10/2021 12:00:00 AM EDT 1.0 {tablet} suspende d metroNIDAZOLE 500 MG eCW1 ([facility]) Metronidazole 500 MG Oral Tablet metroNIDAZOLE 500 MG metroN IDAZOLE 500 MG 02/10/2021 12:00:00 AM EDT 1.0 {tablet} active metroNIDAZOLE 500 MG eCW1 ([facility]) Metronidazole 500 MG Oral Tablet metroNIDAZOLE 500 MG metroN IDAZOLE 500 MG 02/10/2021 12:00:00 AM EDT 1.0 {tablet} suspende d metroNIDAZOLE 500 MG eCW1 ([facility]) Metronidazole 500 MG Oral Tablet metroNIDAZOLE 500 MG metroN IDAZOLE 500 MG 02/10/2021 12:00:00 AM EDT 1.0 {tablet} suspende d metroNIDAZOLE 500 MG eCW1 ([facility]) Metronidazole 500 MG Oral Tablet metroNIDAZOLE 500 MG metroN IDAZOLE 500 MG 02/10/2021 12:00:00 AM EDT 1.0 {tablet} active metroNIDAZOLE 500 MG eCW1 ([facility]) Metronidazole 500 MG Oral Tablet metroNIDAZOLE 500 MG metroN IDAZOLE 500 MG 02/10/2021 12:00:00 AM EDT 1.0 {tablet} active metroNIDAZOLE 500 MG eCW1 ([facility]) Metronidazole 500 MG Oral Tablet metroNIDAZOLE 500 MG metroN IDAZOLE 500 MG 02/10/2021 12:00:00 AM EDT 1.0 {tablet} suspende d metroNIDAZOLE 500 MG eCW1 ([facility]) Metronidazole 500 MG Oral Tablet metroNIDAZOLE 500 MG metroN IDAZOLE 500 MG 02/10/2021 12:00:00 AM EDT 1.0 {tablet} active metroNIDAZOLE 500 MG eCW1 ([facility]) Metronidazole 500 MG Oral Tablet metroNIDAZOLE 500 MG metroN IDAZOLE 500 MG 02/10/2021 12:00:00 AM EDT 1.0 {tablet} suspende d metroNIDAZOLE 500 MG eCW1 ([facility]) Metronidazole 500 MG Oral Tablet metroNIDAZOLE 500 MG metroN IDAZOLE 500 MG 02/10/2021 12:00:00 AM EDT 1.0 {tablet} active metroNIDAZOLE 500 MG eCW1 ([facility]) Metronidazole 500 MG Oral Tablet Metronidazole 500 MG 2020 12:00:00 AM EDT 1.0 {tablet} active Metronidazo le 500 MG eCW1 ([facility]) Metronidazole 500 MG Oral Tablet metroNIDAZOLE 500 MG metroN IDAZOLE 500 MG 02/10/2021 12:00:00 AM EDT 1.0 {tablet} suspende d metroNIDAZOLE 500 MG eCW1 ([facility]) Metronidazole 500 MG Oral Tablet metroNIDAZOLE 500 MG metroN IDAZOLE 500 MG 02/10/2021 12:00:00 AM EDT 1.0 {tablet} suspende d metroNIDAZOLE 500 MG eCW1 ([facility]) Metronidazole 500 MG Oral Tablet metroNIDAZOLE 500 MG metroN IDAZOLE 500 MG 02/10/2021 12:00:00 AM EDT 1.0 {tablet} active metroNIDAZOLE 500 MG eCW1 ([facility]) Metronidazole 500 MG Oral Tablet metroNIDAZOLE 500 MG metroN IDAZOLE 500 MG 02/10/2021 12:00:00 AM EDT 1.0 {tablet} active metroNIDAZOLE 500 MG eCW1 ([facility]) Metronidazole 500 MG Oral Tablet metroNIDAZOLE 500 MG metroN IDAZOLE 500 MG 02/10/2021 12:00:00 AM EDT 1.0 {tablet} suspende d metroNIDAZOLE 500 MG eCW1 ([facility]) Metronidazole 500 MG Oral Tablet Metronidazole 500 MG 2020 12:00:00 AM EDT 1.0 {tablet} active Metronidazo le 500 MG eCW1 ([facility]) Metronidazole 500 MG Oral Tablet metroNIDAZOLE 500 MG metroN IDAZOLE 500 MG 02/10/2021 12:00:00 AM EDT 1.0 {tablet} active metroNIDAZOLE 500 MG eCW1 ([facility]) Metronidazole 500 MG Oral Tablet metroNIDAZOLE 500 MG metroN IDAZOLE 500 MG 02/10/2021 12:00:00 AM EDT 1.0 {tablet} active metroNIDAZOLE 500 MG eCW1 ([facility]) Metronidazole 500 MG Oral Tablet metroNIDAZOLE 500 MG metroN IDAZOLE 500 MG 02/10/2021 12:00:00 AM EDT 1.0 {tablet} suspende d metroNIDAZOLE 500 MG eCW1 ([facility]) Metronidazole 500 MG Oral Tablet metroNIDAZOLE 500 MG metroN IDAZOLE 500 MG 02/10/2021 12:00:00 AM EDT 1.0 {tablet} active metroNIDAZOLE 500 MG eCW1 ([facility]) Metronidazole 500 MG Oral Tablet metroNIDAZOLE 500 MG metroN IDAZOLE 500 MG 02/10/2021 12:00:00 AM EDT 1.0 {tablet} suspende d metroNIDAZOLE 500 MG eCW1 ([facility]) Metronidazole 500 MG Oral Tablet metroNIDAZOLE 500 MG metroN IDAZOLE 500 MG 02/10/2021 12:00:00 AM EDT 1.0 {tablet} suspende d metroNIDAZOLE 500 MG eCW1 ([facility]) 30 mg 02/07/2021 12:00:00 AM EDT capsule,delayed release (DR/EC) 30 TAKE ONE CAPSULE BY MOUTH EVERY DAY TAKE ONE CAPSULE BY MOUTH EVERY DAY SOLD: 02/09/2021 [facility] duloxetine 30 MG Delayed Release Oral Capsule Duloxetine HCL 02/05/2021 12:00:00 AM EDT ORAL active [facility] ([facility]) 10 mEq 01/26/2021 12:00:00 [...] {tablet_as_needed} active Hydrocodone-Acetaminophen 10- 325 MG eCW1 ([facility]) 10-325 mg 12/30/2020 12:00:00 AM EDT [...] {tablet_as_needed} active Hydrocodone-Acetaminophen 10- 325 MG eCW1 ([facility]) Acetaminophen 325 MG / Hydrocodone Caryl trate 10 MG Oral Tablet Hydrocodone- Acetaminophen 10-325 MG Hydrocodone-Acetaminophen 10-325 MG 12/30/2020 12:00:0 0 AM EDT 1.0 {tablet_as_needed} active Hydrocodone-Acetaminophen 10- 325 MG eCW1 ([facility]) Acetaminophen 325 MG / Hydrocodone Caryl trate 10 MG Oral Tablet Hydrocodone- Acetaminophen 10-325 MG Hydrocodone-Acetaminophen 10-325 MG 12/30/2020 12:00:0 0 AM EDT 1.0 {tablet_as_needed} active Hydrocodone-Acetaminophen 10- 325 MG eCW1 ([facility]) Acetaminophen 325 MG / Hydrocodone Caryl trate 10 MG Oral Tablet Hydrocodone- Acetaminophen 10-325 MG Hydrocodone-Acetaminophen 10-325 MG 12/30/2020 12:00:0 0 AM EDT 1.0 {tablet_as_needed} active Hydrocodone-Acetaminophen 10- 325 MG eCW1 ([facility]) Acetaminophen 325 MG / Hydrocodone Caryl trate 10 MG Oral Tablet Hydrocodone- Acetaminophen 10-325 MG Hydrocodone-Acetaminophen 10-325 MG 12/30/2020 12:00:0 0 AM EDT 1.0 {tablet_as_needed} active Hydrocodone-Acetaminophen 10- 325 MG eCW1 ([facility]) Acetaminophen 325 MG / Hydrocodone Caryl trate 10 MG Oral Tablet Hydrocodone- Acetaminophen 10-325 MG Hydrocodone-Acetaminophen 10-325 MG 12/30/2020 12:00:0 0 AM EDT 1.0 {tablet_as_needed} active Hydrocodone-Acetaminophen 10- 325 MG eCW1 ([facility]) Acetaminophen 325 MG / Hydrocodone Caryl trate 10 MG Oral Tablet HYDROcodone- Acetaminophen 10-325 MG HYDROcodone-Acetaminophen 10-325 MG 12/30/2020 12:00:0 0 AM EDT 1.0 {tablet_as_needed} active HYDROcodone-Acetaminophen 10- 325 MG eCW1 ([facility]) Acetaminophen 325 MG / Hydrocodone Caryl trate 10 MG Oral Tablet Hydrocodone- Acetaminophen 10-325 MG Hydrocodone-Acetaminophen 10-325 MG 12/30/2020 12:00:0 0 AM EDT 1.0 {tablet_as_needed} active Hydrocodone-Acetaminophen 10- 325 MG eCW1 ([facility]) Acetaminophen 325 MG / Hydrocodone Caryl trate 10 MG Oral Tablet Hydrocodone- Acetaminophen 10-325 MG Hydrocodone-Acetaminophen 10-325 MG 12/30/2020 12:00:0 0 AM EDT 1.0 {tablet_as_needed} active Hydrocodone-Acetaminophen 10- 325 MG eCW1 ([facility]) 150 mg 12/29/2020 12:00:00 AM EDT capsule 174 TAKE 1 CAPSULE BY MOUTH TWO TIMES A DAY MAXIMUM DAILY DOSE = 2 TAKE 1 CAPSULE BY MOUTH TWO TIMES A DAY MAXIMUM DAILY DOSE = 2 SOLD: 12/30/2020 [facility] 150 mg 12/29/2020 12:00:00 AM EDT capsule 6 TAKE 1 CAPSULE BY MOUTH TWO TIMES A DAY MAXIMUM DAILY DOSE = 2 TAKE 1 CAPSULE BY MOUTH TWO TIMES A DAY MAXIMUM DAILY DOSE = 2 SOLD: 12/29/2020 [facility] 62.5 mcg/actuation 12/16/2020 12:00:00 AM EDT blister with d evice 90 INHALE 1 PUFF BY MOUTH ONCE A DAY INHALE 1 PUFF BY MOUTH ONCE A DAY SOLD: 12/17/2020 [facility] 100-25 mcg/dose 12/16/2020 12:00:00 AM EDT blister with lazaro ce 180 INHALE 1 PUFF BY MOUTH ONCE A DAY INHALE 1 PUFF BY MOUTH ONCE A DAY SOLD: 12/17/2020 [facility] Metronidazole 500 MG Oral Tablet METRONIDAZOLE 12/15/2020 12:0 0:00 AM EDT tablet 20 TAKE 1 TABLET BY MOUTH TWO TIMES A DAY NEEDED TAKE 1 TABLET BY MOUTH TWO TIMES A DAY NEEDED SOLD: 12/17/2020 [facility] Citalopram 20 MG Oral Tablet CITALOPRAM HYDROBROMIDE 11/22/2020 12:00:00 AM EST tablet 90 TAKE ONE TABLET BY MOUTH EVERY D AY TAKE ONE TABLET BY MOUTH EVERY DAY SOLD: 11/22/2020 [facility] Citalopram 20 MG Oral Tablet [...] {tablet_as_needed} active Hydrocodone-Acetaminophen 10- 325 MG eCW1 ([facility]) Acetaminophen 325 MG / Hydrocodone Caryl trate 10 MG Oral Tablet Hydrocodone- Acetaminophen 10-325 MG Hydrocodone-Acetaminophen 10-325 MG 10/27/2020 12:00:0 0 AM EST 1.0 {tablet_as_needed} active Hydrocodone-Acetaminophen 10- 325 MG eCW1 ([facility]) Acetaminophen 325 MG / Hydrocodone Caryl trate 10 MG Oral Tablet Hydrocodone- Acetaminophen 10-325 MG Hydrocodone-Acetaminophen 10-325 MG 10/27/2020 12:00:0 0 AM EST 1.0 {tablet_as_needed} active Hydrocodone-Acetaminophen 10- 325 MG eCW1 ([facility]) Acetaminophen 325 MG / Hydrocodone Caryl trate 10 MG Oral Tablet Hydrocodone- Acetaminophen 10-325 MG Hydrocodone-Acetaminophen 10-325 MG 10/27/2020 12:00:0 0 AM EST 1.0 {tablet_as_needed} active Hydrocodone-Acetaminophen 10- 325 MG eCW1 ([facility]) Acetaminophen 325 MG / Hydrocodone Caryl trate 10 MG Oral Tablet Hydrocodone- Acetaminophen 10-325 MG Hydrocodone-Acetaminophen 10-325 MG 10/27/2020 12:00:0 0 AM EST 1.0 {tablet_as_needed} active Hydrocodone-Acetaminophen 10- 325 MG eCW1 ([facility]) Acetaminophen 325 MG / Hydrocodone Caryl trate 10 MG Oral Tablet Hydrocodone- Acetaminophen 10-325 MG Hydrocodone-Acetaminophen 10-325 MG 10/27/2020 12:00:0 0 AM EST 1.0 {tablet_as_needed} active Hydrocodone-Acetaminophen 10- 325 MG eCW1 ([facility]) 10-325 mg 10/27/2020 12:00:00 AM EST [...] 1.0 {tablet} active Lisinopril 5 MG eCW1 ([facility]) Lisinopril 5 MG Oral Tablet Lisinopril 5 MG 09/29/2020 12:00:00 AM EST 1.0 {tablet} active Lisinopril 5 MG eCW1 ([facility]) Lisinopril 5 MG Oral Tablet Lisinopril 5 MG 09/29/2020 12:00:00 AM EST 1.0 {tablet} active Lisinopril 5 MG eCW1 ([facility]) Lisinopril 5 MG Oral Tablet Lisinopril 5 MG 09/29/2020 12:00:00 AM EST 1.0 {tablet} active Lisinopril 5 MG eCW1 ([facility]) Lisinopril 5 MG Oral Tablet Lisinopril 5 MG 09/29/2020 12:00:00 AM EST 1.0 {tablet} active Lisinopril 5 MG eCW1 ([facility]) Lisinopril 5 MG Oral Tablet Lisinopril 5 MG 09/29/2020 12:00:00 AM EST 1.0 {tablet} active Lisinopril 5 MG eCW1 ([facility]) Lisinopril 5 MG Oral Tablet Lisinopril 5 MG 09/29/2020 12:00:00 AM EST 1.0 {tablet} active Lisinopril 5 MG eCW1 ([facility]) Lisinopril 5 MG Oral Tablet Lisinopril 5 MG 09/29/2020 12:00:00 AM EST 1.0 {tablet} active Lisinopril 5 MG eCW1 ([facility]) Lisinopril 5 MG Oral Tablet Lisinopril 5 MG 09/29/2020 12:00:00 AM EST 1.0 {tablet} active Lisinopril 5 MG eCW1 ([facility]) Lisinopril 5 MG Oral Tablet Lisinopril 5 MG 09/29/2020 12:00:00 AM EST 1.0 {tablet} active Lisinopril 5 MG eCW1 ([facility]) Lisinopril 5 MG Oral Tablet Lisinopril 5 MG 09/29/2020 12:00:00 AM EST 1.0 {tablet} active Lisinopril 5 MG eCW1 ([facility]) Lisinopril 5 MG Oral Tablet Lisinopril 5 MG 09/29/2020 12:00:00 AM EST 1.0 {tablet} active Lisinopril 5 MG eCW1 ([facility]) 5 mg 09/29/2020 12:00:00 AM EST tablet 90 TAKE ONE TABLET BY MOUTH AT BEDTIME TAKE ONE TABLET BY MOUTH AT BEDTIME SOLD: 01/09/2021 [facility] Lisinopril 5 MG Oral Tablet Lisinopril 5 MG 09/29/2020 12:00:00 AM EST 1.0 {tablet} active Lisinopril 5 MG eCW1 ([facility]) Lisinopril 5 MG Oral Tablet Lisinopril 5 MG 09/29/2020 12:00:00 AM EST 1.0 {tablet} active Lisinopril 5 MG eCW1 ([facility]) Lisinopril 5 MG Oral Tablet Lisinopril 5 MG 09/29/2020 12:00:00 AM EST 1.0 {tablet} active Lisinopril 5 MG eCW1 ([facility]) Lisinopril 5 MG Oral Tablet Lisinopril 5 MG 09/29/2020 12:00:00 AM EST 1.0 {tablet} active Lisinopril 5 MG eCW1 ([facility]) Lisinopril 5 MG Oral Tablet Lisinopril 5 MG 09/29/2020 12:00:00 AM EST 1.0 {tablet} active Lisinopril 5 MG eCW1 ([facility]) Lisinopril 5 MG Oral Tablet lisinopril (PRINIVIL,ZESTR IL) 5 MG tablet lisinopril (PRINIVIL,ZESTRIL) 5 MG tablet 09/29/2020 12:00:00 AM EST 5 mg O ral active Take 5 mg by mouth [facility] Lisinopril 5 MG Oral Tablet Lisinopril 5 MG 09/29/2020 12:00:00 AM EST 1.0 {tablet} active Lisinopril 5 MG eCW1 ([facility]) Lisinopril 5 MG Oral Tablet Lisinopril 5 MG 09/29/2020 12:00:00 AM EST 1.0 {tablet} active Lisinopril 5 MG eCW1 ([facility]) Lisinopril 5 MG Oral Tablet Lisinopril 5 MG 09/29/2020 12:00:00 AM EST 1.0 {tablet} active Lisinopril 5 MG eCW1 ([facility]) Lisinopril 5 MG Oral Tablet Lisinopril 5 MG 09/29/2020 12:00:00 AM EST 1.0 {tablet} active Lisinopril 5 MG eCW1 ([facility]) Lisinopril 5 MG Oral Tablet Lisinopril 5 MG 09/29/2020 12:00:00 AM EST 1.0 {tablet} active Lisinopril 5 MG eCW1 ([facility]) Lisinopril 5 MG Oral Tablet Lisinopril 5 MG 09/29/2020 12:00:00 AM EST 1.0 {tablet} active Lisinopril 5 MG eCW1 ([facility]) Lisinopril 5 MG Oral Tablet Lisinopril 5 MG 09/29/2020 12:00:00 AM EST 1.0 {tablet} active Lisinopril 5 MG eCW1 ([facility]) Lisinopril 5 MG Oral Tablet Lisinopril 5 MG 09/29/2020 12:00:00 AM EST 1.0 {tablet} active Lisinopril 5 MG eCW1 ([facility]) 5 mg 09/29/2020 12:00:00 AM EST tablet 90 TAKE ONE TABLET BY MOUTH AT BEDTIME TAKE ONE TABLET BY MOUTH AT BEDTIME SOLD: 10/02/2020 [facility] Lisinopril 5 MG Oral Tablet Lisinopril 5 MG 09/29/2020 12:00:00 AM EST 1.0 {tablet} active Lisinopril 5 MG eCW1 ([facility]) Lisinopril 5 MG Oral Tablet Lisinopril 5 MG 09/29/2020 12:00:00 AM EST 1.0 {tablet} active Lisinopril 5 MG eCW1 ([facility]) Lisinopril 5 MG Oral Tablet Lisinopril 5 MG 09/29/2020 12:00:00 AM EST 1.0 {tablet} active Lisinopril 5 MG eCW1 ([facility]) Lisinopril 5 MG Oral Tablet Lisinopril 5 MG 09/29/2020 12:00:00 AM EST 1.0 {tablet} active Lisinopril 5 MG eCW1 ([facility]) Lisinopril 5 MG Oral Tablet Lisinopril 5 MG 09/29/2020 12:00:00 AM EST 1.0 {tablet} active Lisinopril 5 MG eCW1 ([facility]) Lisinopril 5 MG Oral Tablet Lisinopril 5 MG 09/29/2020 12:00:00 AM EST 1.0 {tablet} active Lisinopril 5 MG eCW1 ([facility]) Lisinopril 5 MG Oral Tablet Lisinopril 5 MG 09/29/2020 12:00:00 AM EST 1.0 {tablet} active Lisinopril 5 MG eCW1 ([facility]) Lisinopril 5 MG Oral Tablet Lisinopril 5 MG 09/29/2020 12:00:00 AM EST 1.0 {tablet} active Lisinopril 5 MG eCW1 ([facility]) Lisinopril 5 MG Oral Tablet Lisinopril 5 MG 09/29/2020 12:00:00 AM EST 1.0 {tablet} active Lisinopril 5 MG eCW1 ([facility]) Lisinopril 5 MG Oral Tablet Lisinopril 5 MG 09/29/2020 12:00:00 AM EST 1.0 {tablet} active Lisinopril 5 MG eCW1 ([facility]) Lisinopril 5 MG Oral Tablet Lisinopril 5 MG 09/29/2020 12:00:00 AM EST 1.0 {tablet} active Lisinopril 5 MG eCW1 ([facility]) Lisinopril 5 MG Oral Tablet Lisinopril 5 MG 09/29/2020 12:00:00 AM EST 1.0 {tablet} active Lisinopril 5 MG eCW1 ([facility]) Lisinopril 5 MG Oral Tablet Lisinopril 5 MG 09/29/2020 12:00:00 AM EST 1.0 {tablet} active Lisinopril 5 MG eCW1 ([facility]) Lisinopril 5 MG Oral Tablet Lisinopril 5 MG 09/29/2020 12:00:00 AM EST 1.0 {tablet} active Lisinopril 5 MG eCW1 ([facility]) Lisinopril 5 MG Oral Tablet Lisinopril 5 MG 09/29/2020 12:00:00 AM EST 1.0 {tablet} active Lisinopril 5 MG eCW1 ([facility]) Lisinopril 5 MG Oral Tablet Lisinopril 5 MG 09/29/2020 12:00:00 AM EST 1.0 {tablet} active Lisinopril 5 MG eCW1 ([facility]) Lisinopril 5 MG Oral Tablet Lisinopril 5 MG 09/29/2020 12:00:00 AM EST 1.0 {tablet} active Lisinopril 5 MG eCW1 ([facility]) Lisinopril 5 MG Oral Tablet Lisinopril 5 MG 09/29/2020 12:00:00 AM EST 1.0 {tablet} active Lisinopril 5 MG eCW1 ([facility]) Lisinopril 5 MG Oral Tablet Lisinopril 5 MG 09/29/2020 12:00:00 AM EST 1.0 {tablet} active Lisinopril 5 MG eCW1 ([facility]) Lisinopril 5 MG Oral Tablet Lisinopril 5 MG 09/29/2020 12:00:00 AM EST 1.0 {tablet} active Lisinopril 5 MG eCW1 ([facility]) Lisinopril 5 MG Oral Tablet Lisinopril 5 MG 09/29/2020 12:00:00 AM EST 1.0 {tablet} active Lisinopril 5 MG eCW1 ([facility]) Lisinopril 5 MG Oral Tablet Lisinopril 5 MG 09/29/2020 12:00:00 AM EST 1.0 {tablet} active Lisinopril 5 MG eCW1 ([facility]) 5 mg 09/29/2020 12:00:00 AM EST tablet 90 TAKE ONE TABLET BY MOUTH AT BEDTIME TAKE ONE TABLET BY MOUTH AT BEDTIME SOLD: 05/04/2021 [facility] Lisinopril 5 MG Oral Tablet Lisinopril 5 MG 09/29/2020 12:00:00 AM EST 1.0 {tablet} active Lisinopril 5 MG eCW1 ([facility]) Amlodipine 5 MG Oral Tablet amLODIPine (NORVASC) 5 MG tablet amLODIPine (NORVASC) 5 MG tablet 09/17/2020 12:00:00 AM EST 5 mg Oral aborted Take 5 mg by mouth daily [facility] 5 mg 09/17/2020 12:00:00 AM EST [...] DAILY DOSE = 2 SOLD: 09/17/2020 [facility] 75 mg 09/06/2020 12:00:00 AM EST tablet 30 TAKE ONE TABLET BY MOUTH EVERY DAY TAKE ONE TABLET BY MOUTH EVERY DAY SOLD: 09/08/2020 [facility] 60 mg 09/06/2020 12:00:00 AM EST [...] A DAY WITH FOOD ENRICO [facility] 10 mg 09/02/2020 12:00:00 AM EST tablet 30 TAKE 1 TABLET BY MOUTH ONCE AT BEDTIME NEEDED MAXIMUM DAILY DOSE = 1 TABLET TAKE 1 TABLET BY MOUTH ONCE AT BEDTIME NEEDED MAXIMUM DAILY DOSE = 1 TABLET SOLD: 09/03/2020 [facility] Atenolol 50 MG Oral Tablet ATENOLOL 09/02/2020 12:00:00 AM EST tablet 30 TAKE ONE TABLET BY MOUTH EVERY DAY TAKE ONE TABLET BY MOUTH EVERY DAY SOLD: 09/03/2020 [facility] 25 mg 09/02/2020 12:00:00 AM [...] tablet (50 mg total) by mouth daily [facility] 25 mg 08/19/2020 12:00:00 AM EST [...] TH E MORNING WITH FOOD SOLD: 08/21/2020 [facility] 5 mg 07/28/2020 12:00:00 AM EST tablet 30 TAKE ONE TABLET BY MOUTH EVERY DAY TAKE ONE TABLET BY MOUTH EVERY DAY SOLD: 08/03/2020 [facility] Lisinopril 5 MG Oral Tablet lisinopril (PRINIVIL,ZESTR IL) 5 MG tablet lisinopril (PRINIVIL,ZESTRIL) 5 MG tablet 07/28/2020 12:00:00 AM EST 5 mg O ral active Take 1 tablet (5 mg total) by mo uth daily [facility] 60 mg 07/28/2020 12:00:00 AM EST tablet extended release 24 hr 30 TAKE ONE TABLET BY MOUTH EVERY DAY TAKE ONE TABLET BY MOUTH EVERY DAY SOLD: 08/03/2020 [facility] Melatonin 3 MG Oral Tablet melatonin tablet 3 mg melatonin t ablet 3 mg 07/27/2020 11:00:00 PM EST 3 mg Oral completed 3 mg, Oral, Once, Mon07/27/20 at 2300, For 1 dose [facility] Medication administered onsite sodium chloride 0.9% (NS) infusion 1031-3585-03 07/27/2020 03:00:00 P M EST Intravenous completed at 100 mL/hr, Intravenous, Continuous, Starting Mon07/27/20 at 1500, For 5 hours, Post-op [facility] Medication administered onsite Nitroglycerin 0.4 MG Sublingual Tablet n itroglycerin (NITROSTAT) SL tablet 0.4 mg nitroglycerin (NITROSTAT) SL tablet 0.4 mg 07/27/2020 02:25:50 P M EST 0.4 mg Sublingual active 0.4 mg, S ublingual, Every 5 min PRN, chest pain, Starting Mon07/27/20 at 1425, Post-op
May administer every 5 minutes for 3 doses and call cardio lab MD.
[facility] Medication administered onsite clopidogrel 75 MG Oral Tablet clopidogrel (PLAVIX) tab let clopidogrel (PLAVIX) tablet 07/27/2020 12:04:55 PM EST active As needed, Starting Mon07/27/20 at 1204, Intra-Procedure [facility] Medication administered onsite 4 ML Verapamil hydrochloride 2.5 MG/ML Injection verap ninoska (ISOPTIN) injection verapamil (ISOPTIN) injection 07/27/2020 11:31:47 AM EST active As needed, Starting Mon07/27/20 at 1131, Intra-Procedure [facility] Medication administered onsite 1 ML heparin sodium, porcine 1000 UNT/ML Injection hep july (porcine) injection heparin (porcine) injection 07/27/2020 11:31:34 AM EST active As needed, Starting Mon07/27/20 at 1131, Intra-Procedure [facility] Medication administered onsite Lisinopril 5 MG Oral Tablet lisinopril (PRINIVIL,ZESTR IL) tablet 5 mg lisinopril (PRINIVIL,ZESTRIL) tablet 5 mg 07/27/2020 09:00:00 AM EST 5 mg O ral active 5 mg, Oral, Daily, First dose on 07/27/20 at 0900 [facility] Medication administered onsite Melatonin 3 MG Oral Tablet melatonin tablet 3 mg melatonin t ablet 3 mg 07/26/2020 11:00:00 PM EST 3 mg Oral completed 3 mg, Oral, Once, 07/26/20 at 2300, For 1 dose [facility] Medication administered onsite normal saline flush 0.9 % injection 3 mL [id number] 07/26/2020 02:00:00 PM EST 3 mL Intravenous active 3 mL , Intravenous, PROTOCOL, First dose on 07/26/20 at 1400, Pre-op
flush per protocol, D/C Main IV fluid if appropriate
[facility] Medication administered onsite normal saline flush 0.9 % injection 3 mL [id number] 07/26/2020 09:00:00 AM EST 3 mL Intravenous active 3 mL , Intravenous, Every 8 hours (scheduled), First dose on 07/26/20 at 0900, Pre-op
Rapid push positive pressure flushing shall be performed with a 10 cc normal saline syringe to check the PATENCY of a PIV site prior to any infusion therapy initiation unless resistance is met.
[facility] Medication administered onsite sodium chloride 0.9% (NS) infusion [id number] 07/26/2020 09:00:00 AM EST 100 mL/h Intravenous active at 100 m L/hr, 100 mL/hr, Intravenous, Continuous, Starting 07/26/20 at 0900, Pre-op
Start two hours prior to scheduled start time
[facility] Medication administered onsite normal saline flush 0.9 % injection 3 mL [id number] 07/26/2020 09:00:00 AM EST 3 mL Intravenous active 3 mL , Intravenous, Every 8 hours (scheduled), First dose on 11/1/20 at 0900, Pre-op
Rapid push positive pressure flushing shall be performed with a 10 cc normal saline syringe to check the PATENCY of a PIV site prior to any infusion therapy initiation unless resistance is met.
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, 07/26/20 at 0900, For 1 dose, Pre-op [facility] Medication administered onsite 24 HR Isosorbide Mononitrate 60 MG Exten ded Release Oral Tablet isosorbide mononitrate (IMDUR) 24 hr tablet 60 mg isosorbide mononitrate (IMDUR) 24 hr tablet 60 mg 07/26/2020 09:00:00 AM EST 60 mg Oral activ e 60 mg, Oral, Daily, First dose on 07/26/20 at 0900 [facility] Medication administered onsite Acetaminophen 325 MG Oral Tablet acetaminophen (TYLENO L) 325 MG tablet 650 mg acetaminophen (TYLENOL) 325 MG tablet 650 mg 07/26/2020 08:36:51 AM EST 650 mg Oral active 650 mg, Or al, Every 4 hours PRN, headaches, and non cardiac pain, Starting 07/26/20 at 0836, Pre-op
"Maximum dose of acetaminophen is 4,000 mg from all sources in 24 hours."
[facility] Medication administered onsite Amlodipine 5 MG Oral Tablet amLODIPine (NORVASC) 5 MG tablet amLODIPine (NORVASC) 5 MG tablet 07/26/2020 12:00:00 AM EDT 5 mg Oral active Take 1 tablet (5 mg total) by mouth daily [facility] 24 HR Isosorbide Mononitrate 60 MG Exten ded Release Oral Tablet isosorbide mononitrate (IMDUR) 60 MG 24 hr tablet isosorbide mononitrate (IMDUR) 60 MG 24 hr tablet 07/26/2020 12:00:00 AM EDT 60 mg Oral active Take 1 tablet (60 mg total) by mouth daily [facility] 24 HR Isosorbide Mononitrate 30 MG Exten ded Release Oral Tablet isosorbide mononitrate (IMDUR) 24 hr tablet 30 mg isosorbide mononitrate (IMDUR) 24 hr tablet 30 mg 07/25/2020 03:00:00 PM EDT 30 mg Oral abort ed 30 mg, Oral, Daily, First dose on 07/25/20 at 1500 [facility] Medication administered onsite Metoprolol Tartrate 25 MG Oral Tablet me toprolol tartrate (LOPRESSOR) tablet 12.5 mg metoprolol tartrate (LOPRESSOR) tablet 12.5 mg 020 10:00:00 AM EDT 12.5 mg Oral active 12.5 mg, Oral, 2 times daily, First dose on 07/25/20 at 1000 [facility] Medication administered onsite Metoprolol Tartrate 25 MG Oral Tablet me toprolol tartrate (LOPRESSOR) 25 MG tablet metoprolol tartrate (LOPRESSOR) 25 MG tablet 07/25/2020 12:0 0:00 AM EDT 12.5 mg Oral active Take 0.5 tablets (12.5 mg total) by mouth 2 (two) times a day [facility] Zolpidem tartrate 5 MG Oral Tablet zolpidem (AMBIEN) t ablet 2.5 mg zolpidem (AMBIEN) tablet 2.5 mg 07/24/2020 10:00:00 PM EDT 2.5 mg Oral completed 2.5 mg, Oral, Once, Mon07/24/20 at 2200, For [address] [facility] Medication administered onsite iodixanol (VISIPAQUE) 320 MG/ML injection [id number] 07/24/2020 04:51 :30 PM EDT active As needed, Starting Mon07/24/20 at 1651, Intra-Procedure [facility] Medication administered onsite lidocaine 1 % injection [id number] 07/24/2020 04:50:02 PM EDT active As needed, Starting Mon07/24/20 at 1650, Intra-Procedure [facility] Medication administered onsite Cefazolin 1000 MG Injection ceFAZolin (ANCEF) injectio n ceFAZolin (ANCEF) injection 07/24/2020 04:44:48 PM EDT active As needed, Starting Mon07/24/20 at 1644, Intra-Procedure [facility] Medication administered onsite fentaNYL Citrate (PF) (SUBLIMAZE) injection [id number] 07/24/2020 04:44:32 PM EDT active As neede d, Starting Mon07/24/20 at 1644, Intra-Procedure [facility] Medication administered onsite 2 ML Midazolam 1 MG/ML Injection midazolam (VERSED) in jection midazolam (VERSED) injection 07/24/2020 04:44:24 PM EDT active As needed, Starting Mon07/24/20 at 1644, Intra-Procedure [facility] Medication administered onsite Amlodipine 10 MG Oral Tablet amLODIPine (NORVASC) tabl et 10 mg amLODIPine (NORVASC) tablet 10 mg 07/24/2020 09:00:00 AM EDT 10 mg Oral aborted 10 mg, Oral, Daily, First dose on Mon07/24/20 at 0900 [facility] Medication administered onsite 60 ACTUAT formoterol fumarate 0.005 MG/A CTUAT / mometasone furoate 0.2 MG/ACTUAT Metered Dose Inhaler mometasone-formoterol (DULERA) 200-5 MCG/ACT inhaler 2 puff mometasone-formoterol (DULERA) 200-5 MCG/ACT inhaler 2 puff 07/24/2020 09:00:00 AM EDT 2 {puff} Inhalation active 2 puff, Inhalation, Daily, First dose on Mon07/24/20 at 0900 [facility] Medication administered onsite Chlorthalidone 25 MG Oral Tablet chlorthalidone (HYGRO TEN) tablet 25 mg chlorthalidone (HYGROTEN) tablet 25 mg 07/24/2020 09:00:00 AM EDT 2 5 mg Oral aborted 25 mg, Oral, Daily, First dose on Mon07/24/20 at 0900 [facility] Medication administered onsite Lisinopril 20 MG Oral Tablet lisinopril (PRINIVIL,ZEST RIL) tablet 20 mg lisinopril (PRINIVIL,ZESTRIL) tablet 20 mg 07/24/2020 09:00:00 AM EDT 20 mg Oral aborted 20 mg, Oral, Daily, First dose on Mon07/24/20 at 0900 [facility] Medication administered onsite Aspirin 81 MG Delayed Release Oral Tablet aspirin EC t ablet 81 mg aspirin EC tablet 81 mg 07/24/2020 09:00:00 AM EDT 81 mg Oral activ e 81 mg, Oral, Daily, First dose on Mon07/24/20 at 0900 [facility] Medication administered onsite clopidogrel 75 MG Oral Tablet clopidogrel (PLAVIX) tab let 75 mg clopidogrel (PLAVIX) tablet 75 mg 07/24/2020 09:00:00 AM EDT 75 mg Oral active 75 mg, Oral, Daily, First dose on Mon07/24/20 at 0900 [facility] Medication administered onsite Citalopram 20 MG Oral Tablet citalopram (CeleXA) table t 20 mg citalopram (CeleXA) tablet 20 mg 07/24/2020 09:00:00 AM EDT 20 mg Oral active 20 mg, Oral, Daily, First dose on Mon07/24/20 at 0900 [facility] Medication administered onsite Ipratropium [place] 0.2 MG/ML Inhalant S olution ipratropium (ATROVENT) 0.02 % nebulizer solution 0.5 mg ipratropium (ATROVENT) 0.02 % nebulizer solution 0.5 mg 07/24/2020 08:00:00 AM EDT 0.5 mg active 0.5 mg, Nebulization, 4 times daily, First dose on Mon07/24/20 at 0800 [facility] Medication administered onsite Influenza Vac Split Quad injection 0.5 mL [id number] 07/24/2020 0 5:00:00 AM EDT 0.5 mL Intramuscular completed 0.5 mL , Intramuscular, During hospitalization, Mon07/24/20 at 0500, For 1 dose [facility] Medication administered onsite Levetiracetam 500 MG Oral Tablet levETIRAcetam (KEPPRA ) tablet 500 mg levETIRAcetam (KEPPRA) tablet 500 mg 07/24/2020 01:00:00 AM EDT 500 m g Oral active 500 mg, Oral, 2 times daily, First dose on Mon07/24/20 at 0100 [facility] Medication administered onsite heparin (porcine) injection 5,000 Units [id number] 07/24/20 12:00:00 AM EDT 5000 U Subcutaneous active 5,000 Units , Subcutaneous, Every 12 hours (scheduled), First dose on Mon07/24/20 at 0000
If platelet count is less than 100,000 or hematocrit is less than 30, or if there is a 5 point decrease in hematocrit, do not give the dose and call physician/designee.
[facility] Medication administered onsite pregabalin 75 MG Oral Capsule pregabalin (LYRICA) caps ule 150 mg pregabalin (LYRICA) capsule 150 mg 07/23/2020 11:00:00 PM EDT 150 mg Oral active 150 mg, Oral, 2 times daily, First dose on Mon07/23/20 at 2300, For 7 days [facility] Medication administered onsite Famotidine 20 MG Oral Tablet famotidine (PEPCID) table t 20 mg famotidine (PEPCID) tablet 20 mg 07/23/2020 11:00:00 PM EDT 20 mg Oral active 20 mg, Oral, 2 times daily, First dose on Mon07/23/20 at 2300 [facility] Medication administered onsite Zolpidem tartrate 5 MG Oral Tablet zolpidem (AMBIEN) t ablet 2.5 mg zolpidem (AMBIEN) tablet 2.5 mg 07/23/2020 10:19:39 PM EDT 2.5 mg Oral completed 2.5 mg, Oral, Nightly PRN, sleep, Starting Mon 0 at 2219, For 1 dose [facility] Medication administered onsite Nitroglycerin 0.4 MG Sublingual Tablet n itroglycerin (NITROSTAT) SL tablet 0.4 mg nitroglycerin (NITROSTAT) SL tablet 0.4 mg 07/23/2020 10:17:24 P M EDT 0.4 mg Sublingual aborted 0.4 mg, S ublingual, Every 5 min PRN, chest pain, Starting Martha 07/23/20 at 2217
May administer up to 3 doses per episode.
[facility] Medication administered onsite normal saline flush 0.9 % injection 3 mL [id number] 07/23/2020 10:00:00 PM EDT 3 mL Intravenous aborted 3 mL , Intravenous, Every 8 hours (scheduled), First dose on Martha 07/23/20 at 2200
Rapid push positive pressure flushing shall be performed with a 10 cc normal saline syringe to check the PATENCY of a PIV site prior to any infusion therapy initiation unless resistance is met.
[facility] Medication administered onsite normal saline flush 0.9 % injection 3 mL [id number] 07/23/2020 10:00:00 PM EDT 3 mL Intravenous aborted 3 mL , Intravenous, Every 8 hours (scheduled), First dose on Martha 07/23/20 at 2200
flush per protocol, D/C Main IV fluid if appropriate
[facility] Medication administered onsite ondansetron (ZOFRAN) injection 4 mg [id number] 07/23/2020 08:52:1 8 PM EDT 4 mg Intravenous active 4 mg, In travenous, Every 6 hours PRN, nausea, vomiting, Starting Martha 07/23/20 at 2051 [facility] Medication administered onsite Acetaminophen 325 MG Oral Tablet acetaminophen (TYLENO L) 325 MG tablet 650 mg acetaminophen (TYLENOL) 325 MG tablet 650 mg 07/23/2020 08:52:13 PM EDT 650 mg Oral aborted 650 mg, Or al, Every 8 hours PRN, mild pain (1-3), headaches, Starting Martha 07/23/20 at 2051
"Maximum dose of acetaminophen is 4,000 mg from all sources in 24 hours."
[facility] Medication administered onsite Oxybutynin chloride 5 MG Oral Tablet oxybutynin (DITRO MAN) tablet 5 mg oxybutynin (DITROPAN) tablet 5 mg 07/23/2020 09:00:00 AM EDT 5 mg Oral active 5 mg, Oral, 2 times daily, First dose on Martha 07/23/20 at 0900 [facility] Medication administered onsite 30 ACTUAT fluticasone [...] = 4 TABLETS SOLD: 07/13/2020 [facility] Famotidine 20 MG Oral Tablet FAMOTIDINE 06/11/2020 12:00:00 AM EDT tab let 180 TAKE ONE TABLET BY MOUTH TWICE A DAY TAKE ONE TABLET BY MOUTH TWICE A DAY SOLD: 11/21/2020 [facility] 10 mEq 01/13/2020 12:00:00 AM EDT tablet,ER particles/cry stals 90 TAKE ONE TABLET BY MOUTH EVERY DAY TAKE ONE TABLET BY MOUTH EVERY DAY SOLD: 07/16/2020 [facility] 10 mEq 01/13/2020 12:00:00 AM EDT tablet,ER particles/cry stals 90 TAKE ONE TABLET BY MOUTH EVERY DAY TAKE ONE TABLET BY MOUTH EVERY DAY SOLD: 10/19/2020 [facility] Docusate Sodium 100 MG Oral Capsule docusate sodium (C OLACE) 100 MG capsule docusate sodium (COLACE) 100 MG capsule 03/26/2019 12:00:00 AM EDT 100 mg Oral aborted Take 1 capsule (100 mg total) by mouth 2 (two) times a day [facility] POLYETHYLENE GLYCOL 3350 142 MG/ML Oral Solution polyethylene glycol (GLYCOLAX) packet polyethylene glycol (GLYCOLAX) packet 03/26/2019 12:00:00 AM EDT 17 g Oral aborted Take 17 g by mouth d aily [facility] LEVETIRACETAM ER PO Oral aborted Ta ke by mouth [facility] Amlodipine 10 MG Oral Tablet amLODIPine (NORVASC) 10 M G tablet amLODIPine (NORVASC) 10 MG tablet 10 mg Oral aborted T dileep 10 mg by mouth daily [facility] Metronidazole 500 MG Oral Tablet metroNIDAZOLE (FLAGYL ) 500 MG tablet metroNIDAZOLE (FLAGYL) 500 MG tablet 500 mg Oral a borted Take 500 mg by mouth 2 (two) times a day [facility] METOPROLOL TARTRATE PO Oral aborted Take by mouth [facility] Lisinopril 20 MG Oral Tablet lisinopril (PRINIVIL,ZEST RIL) 20 MG tablet lisinopril (PRINIVIL,ZESTRIL) 20 MG tablet 20 mg Oral aborted Take 20 mg by mouth daily [facility] Lisinopril 20 MG Oral Tablet lisinopril (PRINIVIL,ZEST RIL) 20 MG tablet lisinopril (PRINIVIL,ZESTRIL) 20 MG tablet 20 mg Oral aborted Take 20 mg by mouth daily [facility] Atenolol 50 MG Oral Tablet atenolol (TENORMIN) 50 MG t ablet atenolol (TENORMIN) 50 MG tablet 50 mg Oral aborted Take 50 mg by mouth daily [facility] Amlodipine 10 MG Oral Tablet amLODIPine (NORVASC) 10 M G tablet amLODIPine (NORVASC) 10 MG tablet 10 mg Oral aborted T dileep 10 mg by mouth daily [facility] 1 ML evolocumab 140 MG/ML Prefilled Syringe Evolocumab (REPATHA) 140 MG/ML SOSY Evolocumab (REPATHA) 140 MG/ML SOSY 140 mg Subcutaneous aborted Inject 140 mg under the skin every 14 (fourteen) days [facility] Insurance Providers Payer name Policy type / Coverage type Policy ID Covered alliance party ID Covered alliance party's relationship to najera Policy Najera Plan Information UHC UNITED MEDICARE DUAL G [id number] Self [id number] [facility] [id number] SP [id number] [place] Med[place] [id number] Self [id number] [place] [id number] Self [id number] [place] [id number] Self [id number] [place] [id number] Self [id number] [place] [id number] Self [id number] [facility] Health Maintenance Organization (HMO) [id number] Self [id number] [facility] DUAL COMPLET [id number] S [id number] [facility] MEDICARE DUAL G [id number] Self [id number] [facility] DUAL COMPLET [id number] S [id number] [facility] MCRO [id number] SP [id number] [facility] [id number] SP [id number] [facility] MEDICARE [id number] Rebecca [id number] [facility] MEDICAID [id number] Rebecca [id number] UNITED [id number] Self [id number] [facility] MEDICARE [id number] xxxxxxxxx [id number] MEDICAID [id number] [id number] MEDICAID [id number] Rebecca [id number] MEDICAID M [id number] Self [id number] MEDICAID [id number] SP [id number] EMEDNY [id number] SP [id number] [facility] ([facility]) Commercial [id number] Self [id number] [facility] ([facility]) Commercial [id number] Self [id number] UNITED HEALTHCARE DUAL COMPLET [id number] S [id number] MEDICAID [id number] S [id number] MEDICAID [id number] S [id number] UNITED HEALTHCARE DUAL COMPLET [id number] S [id number] VNA MEDICAID MANAGED I [id number] Self [id number] [place] [facility] [place] Part B [id number] Self [id number] UNITED HEALTHCARE MCRHMO [id number] SP [id number] [facility]-Medicare Part B [id number] ANS-Medicare Part [id number] ANSMedicare Part B [id number] ANS-Medicare Part [id number] MEDICAID [id number] S [id number] [place] Primary [id number] Self UNITED HEALTHCARE MCRHMO [id number] SP [id number] MEDICARE - [place] [id number] S [id number] UNITED HEALTHCARE DUAL COMPLET [place] [id number] S [id number] UNITED HEALTHCARE DUAL COMPLET [place] [id number] S [id number] [facility] MEDICARE DIVISION [id number] S [id number] [facility] MEDICAID PI PI MEDICAID [id number] SP [id number] Medicare [facility] Medicare Primary [id number] Self [id number] MEDICAID [id number] S [id number] Medicare [facility] Medicare Primary [id number] Self [id number] Medicare [facility] Medicare Primary [id number] Self [id number] MEDICAID [id number] S [id number] Medicare [facility] Medicare Primary [id number] Self [id number] MEDICARE COMPLETE [id number] SP [id number] [facility] [id number] SP [id number] Medicare [facility] Medicare Primary [id number] Self [id number] [facility] MEDICAID [id number] SP [id number] MEDICARE [id number] SP [id number] A [facility] MEDICARE [place] [id number] S [id number] [facility] MEDIC[facility] COMPLETE - O/P [id number] 18 [id number] MEDICAID [id number] Retired [id number] [facility] MEDICARE [id number] Retired [id number] MEDICAID M [id number] S [id number] [facility](MCAID) O [id number] S [id number] Problems, Conditions, and Diagnoses Code Display Name Description Problem Type Effective Dates Data Source(s) Z20.822 CONTACT WITH AND (SUSPECTED) EXPOSURE TO COVID-19 CONTACT WITH AND (SUSPECTED) EXPOSURE TO COVID-19 Diagnosis 05/20/2021 02:14:00 PM [facility] 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 O THER BACK WEDGER (CURRENT) DRUG THERAPY Diagnosis 05/20/2021 02:14:00 PM [facility] Z79.02 senior living (current) use of antithromboti cs/antiplatelets SNF (CURRENT) USE OF ANTITHROMBOTICS/ANTIPLA Diagnosis 05/20/2021 02:14:00 PM [facility] 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 BACK WEDGER (CU RRENT) USE OF ASPIRIN Diagnosis 05/20/2021 02:14:00 PM [facility] Z87.891 Personal history of nicotine dependence PERSONAL HISTORY OF NICOTINE DEPENDENCE Diagnosis 05/20/2021 02:14:00 PM [facility] J42 Unspecified chronic bronchitis UNSPECIFIED CHRONIC BRO NCHITIS Diagnosis 05/20/2021 02:14:00 PM [facility] I10 Essential (primary) hypertension ESSENTIAL (PRIMARY) H YPERTENSION Diagnosis 05/20/2021 02:14:00 PM [facility] R51.9 HEADACHE, UNSPECIFIED HEADACHE, UNSPECIFIED Diagnosis 05/20/2021 02:14:00 PM [facility] J43.9 Emphysema, unspecified EMPHYSEMA, UNSPECIFIED Diagnosi s 05/20/2021 02:14:00 PM [facility] R06.00 Dyspnea, unspecified DYSPNEA, UNSPECIFIED Diagnosis 05/20/2021 02:14:00 PM [facility] R00.1 Bradycardia, unspecified Bradycardia, unspecified Diag nosis 04/01/2021 12:59:07 PM EDT [facility] I27.20 Pulmonary hypertension, unspecified Pulmonary hy pertension, unspecified Diagnosis 04/01/2021 12:59:[address] [facility] I10 Essential (primary) hypertension Essential (primary) h ypertension Diagnosis 04/01/2021 12:59:07 PM EDT [facility] I34.2 Nonrheumatic mitral (valve) stenosis Nonrheumati c mitral (valve) stenosis Diagnosis 04/01/2021 12:59:[address] [facility] E78.2 Mixed hyperlipidemia Mixed hyperlipidemia Diagnosis 04/01/2021 12:59:07 PM EDT [facility] I25.10 Atherosclerotic heart diseas e of [place] coronary artery without angina pectoris Atherosclerotic heart disease of [place] Diagnosis 04/01/2021 12:59:07 PM EDT [facility] R20.2 Paresthesia of skin Paresthesia of skin Diagnosis 0 01/27/2021 11:30:16 AM [facility] M79.604 Pain in right leg Pain in right leg Diagnosis 01/27 11:30:16 AM [facility] M54.5 Low back pain Low back pain Diagnosis 01/27/2021 11:30:16 AM [facility] R00.2 Palpitations Palpitations Diagnosis 11/19/2020 02:49:15 P M 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 OCCLUSION AND STENOSIS OF BILATERAL VERTEBRAL MONTY Diagnosis 10/02/2020 03:30:00 PM [facility] R42 Dizziness and giddiness DIZZINESS AND GIDDINESS Diagno sis 10/02/2020 03:30:00 PM [facility] I25.10 Atherosclerotic heart diseas e of [place] coronary artery without angina pectoris ATHSCL HEART DISEASE OF [place] RESERVATION CORONARY ARTERY W/O ANG PCTRS Diagnosis 10/02/2020 03:30:00 PM [facility] I70.8 Atherosclerosis of other arteries ATHEROSCLEROSI S OF OTHER ARTERIES Diagnosis 10/02/2020 03:30:00 PM [facility] Z95.0 Presence of cardiac pacemaker PRESENCE OF CARDIAC PACE MAKER Diagnosis 08/25/2020 06:47:00 PM [facility] Z95.1 Presence of aortocoronary bypass graft P RESENCE OF AORTOCORONARY BYPASS GRAFT Diagnosis 08/25/2020 06:47:00 PM [facility] Z95.5 Presence of coronary angioplasty implant and graft PRESENCE OF CORONARY ANGIOPLASTY IMPLANT AND GRAFT Diagnosis 08/25/2020 06:47:00 PM [facility] Z79.891 senior living (current) use of opiate analge sic BACK WEDGER (CURRENT) USE OF OPIATE ANALGESIC Diagnosis 08/25/2020 06:47:00 PM [facility] J44.9 Chronic obstructive pulmonary disease, u nspecified CHRONIC OBSTRUCTIVE PULMONARY DISEASE, UNSPECIFIED Diagnosis 08/25/2020 06:47:00 PM [facility] R00.2 Palpitations PALPITATIONS Diagnosis 08/25/2020 06:47:00 P M [facility] I20.9 Angina pectoris, unspecified Angina pectoris, unspecif ied Diagnosis 07/23/2020 08:46:24 PM EDT [facility] R07.9 Chest pain, unspecified Chest pain, unspecified Diagno sis 07/23/2020 08:46:24 PM EDT [facility] 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 SNF (CURRENT) USE OF INHALED STEROIDS Diagnosis 07/23/2020 04:11:00 PM [facility] Z79.01 senior living (current) use of anticoagulant s SNF (CURRENT) USE OF ANTICOAGULANTS Diagnosis 07/23/2020 04:11:00 PM [facility] Z20.828 Contact with and (suspected) exposure to other viral communicable diseases CONTACT W AND EXPOSURE TO OTH VIRAL COMMUNICABLE D Diagnosis 07/23/2020 04:11:00 PM [facility] I25.2 Old myocardial infarction OLD MYOCARDIAL INFARCTION Di agnosis 07/23/2020 04:11:00 PM [facility] R07.89 Other chest pain OTHER CHEST PAIN Diagnosis 07/23/2020 04 :11:00 PM [facility] R07.9 Chest pain, unspecified CHEST PAIN, UNSPECIFIED Diagno sis 07/23/2020 04:11:00 PM [facility] I10 [id number] Primary hypertension Problem 05/25/2021 12:0 0:00 AM EDT eCW1 ([facility]) G89.29 Chronic pain Other chronic pain Problem 04/07/2021 12:0 0:00 AM EDT eCW1 ([facility]) M89.49 [id number] Primary osteoarthritis involving multiple joints Problem 01/07/2021 12:00:00 AM EDT eCW1 ([facility]) M05.79 [id number] Rheumatoid arthritis involving multiple sites with positive rheumatoid factor Problem 12/30/2020 12:00:00 AM EDT eCW1 ([facility]) I25.10 [id number] Arteriosclerotic cardiovascular disease ( ASCVD) Problem 09/29/2020 12:00:00 AM EST eCW1 ([facility]) Z95.0 [id number] Status post cardiac pacemaker procedure P roblem 09/29/2020 12:00:00 AM EST eCW1 ([facility]) 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 Pr oblem 07/30/2020 12:00:00 AM EST eCW1 ([facility]) Z95.5 [id number] S/P coronary artery stent placement Probl em 07/30/2020 12:00:00 AM EST eCW1 ([facility]) Z98.890 [id number] History of stent insertion of renal arter y Problem 07/30/2020 12:00:00 AM EST eCW1 ([facility]) J44.9 [id number] COPD (chronic obstru ctive pulmonary disease) case management patient Problem 07/30/2020 12:00:00 AM EST eCW1 ([facility]) Z87.19 [id number] History of diverticulitis Problem 07/30/2020 12:00:00 AM EST eCW1 ([facility]) Z99.81 [id number] Dependence on supplemental oxygen Problem 07/30/2020 12:00:00 AM EST eCW1 ([facility]) R00.1 Symptomatic bradycardia Symptomatic bradycardia [id number] 07/30/2020 12:00:00 AM EST [facility] K57.90 Diverticulosis Diverticulosis [id number] 07/24/2020 12:00: 00 AM EDT [facility] R56.9 Seizure Seizure [id number] 07/24/2020 12:00:00 AM ED T [facility] I51.7 Cardiomegaly Cardiomegaly [id number] 07/23/2020 12:00:00 A M EDT [facility] K21.9 Gastroesophageal reflux disease Gastroesophageal reflu x disease [id number] 07/23/2020 12:00:00 AM EDT [facility] I27.20 Pulmonary hypertension Pulmonary hypertension [id number] 07/23/2020 12:00:00 AM EDT [facility] G47.33 TODD (obstructive sleep apnea) TODD (obstructive sleep a pnea) [id number] 07/23/2020 12:00:00 AM EDT [facility] G62.9 Neuropathy Neuropathy [id number] 07/23/2020 12:00:00 AM ED T [facility] J44.9 COPD (chronic obstructive pulmonary dise ase) COPD (chronic obstructive pulmonary disease) [id number] 07/23/2020 12:00:00 AM EDT [facility] Z99.81 Supplemental oxygen dependent Supplemental oxygen depe ndent [id number] 07/23/2020 12:00:00 AM EDT [facility] 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 [id number] 07/23/2020 12:00:00 AM ED T [facility] I20.9 Angina pectoris Angina pectoris [id number] 07/23/2020 12:0 0:00 AM EDT [facility] Z98.890 History of stent insertion of renal monty ry History of stent insertion of renal artery [id number] 07/23/2020 12:00:00 AM EDT [facility] R00.1 Bradycardia Bradycardia [id number] 07/23/2020 12:00:00 AM EDT [facility] Surgeries/Procedures Procedure Description Date Indications Data Source(s) OFFICE OUTPATIENT VISIT 25 MINUTES 08/06/2021 12:00:00 AM EST [facility] ([facility]) OFFICE OUTPATIENT VISIT 25 MINUTES 05/06/2021 12:00:00 AM EDT [facility] ([facility] ) Pain Procedure Log 04/08/2021 12:00:00 AM EDT eCW1 ([facility]) Medication: [place] Tablet 5mg/325mg Orally (Hydrocodone/Aceta minophen) 03/25/2021 12:00:00 AM EDT eCW1 ([facility]) Unclassified drugs 03/25/2021 12:00:00 AM EDT eCW1 ([facility]) Completion of procedural visit when meets criteria 03/25/2021 12:00:00 AM EDT eCW1 ([facility]) Needle electromyography, each extremity, with related paraspinal areas, when performed, done with nerve conduction, amplitude and latency/velocity study; complete, five or more muscles studied, innervated by three or more nerves or four or more spinal levels (list separately in addition to the code for primary procedure). 02/01/2021 12:00:00 AM EDT [facility] T ([facility] ) Needle electromyography, each extremity, with related paraspinal areas, when performed, done with nerve conduction, amplitude and latency/velocity study; complete, five or more muscles studied, innervated by three or more nerves or four or more spinal levels (list separately in addition to the code for primary procedure). 02/01/2021 12:00:00 AM EDT [facility] T ([facility], ) 08965 Nerve conduction studies 13 or more studies NEW 201202/01/2021 12:00:00 AM EDT [facility] ([facility] ) OFFICE OUTPATIENT VISIT 25 MINUTES 01/19/2021 12:00:00 AM EDT [facility] ([facility] ) ECG ROUTINE ECG W/LEAST 12 LDS W/I&R <td>POCT AMB EKG</td><td>Routine</td><td>09/01/2020 2:11 PM EST</td><td> Coronary artery disease involving [place]ominee heart without angina pectoris, unspecified vessel or lesion type</td><td> </td> 09/01/2020 07:11:00 PM EST Coronary artery disease involving [place]ominee heart without angina pectoris, unspecified vessel or lesion type [facility] Coronary artery disease involving [place] heart without angina pectoris, unspecified vessel or lesion type BLOOD COUNT COMPLETE AUTOMATED <td>CBC</td><td>Routine </td><td>07/28/2020 5:43 AM EST</td><td></td><td> </td> 07/28/2020 10:43:00 AM EST [facility] BASIC METABOLIC PANEL CALCIUM TOTAL <td>BASIC METABOLI C PANEL</td><td>Routine</td><td>07/28/2020 5:43 AM EST</td><td></td><td> </td> 07/28/2020 10:43:00 AM EST [facility] ECG ROUTINE ECG W/LEAST 12 LDS TRCG ONLY W/O I&R <td>E CG 12- LEAD</td><td>Routine</td><td>07/28/2020 3:08 AM EST</td><td></td><td></td> 07/28/2020 08:08:[address] [facility] CARDIAC CATHETERIZATION <td>CARDIAC CATHETERIZATION</td><td>Routine</td><td>07/27/2020 11:58 AM EST</td><td> Angina pectoris</td><td> </td> 07/27/2020 04:58:30 PM EST Angina pectoris [facility] Angina pectoris BLOOD COUNT COMPLETE AUTOMATED <td>CBC</td><td>Routine </td><td>07/27/2020 4:15 AM EST</td><td></td><td> </td> 07/27/2020 09:15:00 AM EST [facility] BASIC METABOLIC PANEL CALCIUM TOTAL <td>BASIC METABOLI C PANEL</td><td>Routine</td><td>07/27/2020 4:15 AM EST</td><td></td><td> </td> 07/27/2020 09:15:00 AM EST [facility] ECG ROUTINE ECG W/LEAST 12 LDS W/I&R <td>ECG 12- LEAD</td><td>Routine</td><td>07/27/2020 3:29 AM EST</td><td></td><td></td> 07/27/2020 08:29:[address] [facility] THROMBOPLASTIN TIME PARTIAL PLASMA/WHOLE BLOOD <td>APTT</td><td>Routine</td><td>07/26/2020 10:35 AM EST</td><td></td><td> </td> 07/26/2020 03:35:00 PM EST [facility] PROTHROMBIN TIME <td>PROTIME-INR</td><td>Rout ine</td><td>07/26/2020 10:35 AM EST</td><td></td><td> </td> 07/26/2020 03:35:00 PM EST [facility] BLOOD COUNT COMPLETE AUTOMATED <td>CBC</td><td>Routine </td><td>07/26/2020 6:06 AM EST</td><td></td><td> </td> 07/26/2020 11:06:00 AM EST [facility] BASIC METABOLIC PANEL CALCIUM TOTAL <td>BASIC METABOLI C PANEL</td><td>Routine</td><td>07/26/2020 6:06 AM EST</td><td></td><td> </td> 07/26/2020 11:06:00 AM EST [facility] ECG ROUTINE ECG W/LEAST 12 LDS TRCG ONLY W/O I&R <td>E CG 12- LEAD</td><td>Routine</td><td>07/26/2020 4:44 AM EST</td><td></td><td></td> 07/26/2020 09:44:[address] [facility] TROPONIN QUANTITATIVE <td>TROPONIN I</td><td>STAT< /td><td>07/25/2020 3:22 PM EDT</td><td></td><td> </td> 07/25/2020 07:22:00 PM EDT [facility] ECG ROUTINE ECG W/LEAST 12 LDS TRCG ONLY W/O I&R <td>E CG 12- LEAD</td><td>Routine</td><td>07/25/2020 12:48 PM EDT</td><td></td><td></td> 07/25/2020 04:48:[address] [facility] ECG ROUTINE ECG W/LEAST 12 LDS TRCG ONLY W/O I&R <td>E CG 12- LEAD</td><td>Routine</td><td>07/25/2020 9:04 AM EDT</td><td></td><td></td> 07/25/2020 01:04:[address] [facility] BLOOD COUNT COMPLETE AUTOMATED <td>CBC</td><td>Timed</ td><td>07/25/2020 7:11 AM EDT</td><td></td><td> </td> 07/25/2020 11:11:00 AM EDT [facility] BASIC METABOLIC PANEL CALCIUM TOTAL <td>BASIC METABOLI C PANEL</td><td>Timed</td><td>07/25/2020 7:11 AM EDT</td><td></td><td> </td> 07/25/2020 11:11:00 AM EDT [facility] XR CHEST PORTABLE <td>XR CHEST PORTABLE</td><t d>STAT</td><td>07/24/2020 7:08 PM EDT</td><td></td><td> </td> 07/24/2020 11:08:54 PM EDT [facility] EP STUDY <td>EP STUDY</td><td>Routine </td><td>07/24/2020 5:55 PM EDT</td><td> Bradycardia</td><td> </td> 07/24/2020 09:55:02 PM EDT Bradycardia [facility] Bradycardia BLOOD COUNT COMPLETE AUTOMATED <td>CBC</td><td>Timed</ td><td>07/24/2020 4:12 AM EDT</td><td></td><td> </td> 07/24/2020 08:12:00 AM EDT [facility] BASIC METABOLIC PANEL CALCIUM TOTAL <td>BASIC METABOLI C PANEL</td><td>Timed</td><td>07/24/2020 4:12 AM EDT</td><td></td><td> </td> 07/24/2020 08:12:00 AM EDT [facility] TROPONIN QUANTITATIVE <td>TROPONIN I</td><td>Timed </td><td>07/23/2020 11:55 PM EDT</td><td></td><td> </td> 07/24/2020 03:55:00 AM EDT [facility] XR CHEST PORTABLE <td>XR CHEST PORTABLE</td><t d>Routine</td><td>07/23/2020 10:03 PM EDT</td><td></td><td> </td> 07/24/2020 02:03:46 AM EDT [facility] HEMOGLOBIN GLYCOSYLATED A1C <td>HEMOGLOBIN A1C</td><td>Routine</td><td>07/23/2020 9:08 PM EDT</td><td></td><td> </td> 07/24/2020 01:08:00 AM EDT [facility] NT PRO BNP <td>NT PRO BNP</td><td>Routi ne</td><td>07/23/2020 9:07 PM EDT</td><td></td><td> </td> 07/24/2020 01:07:00 AM EDT [facility] TROPONIN QUANTITATIVE <td>TROPONIN I</td><td>Timed </td><td>07/23/2020 9:07 PM EDT</td><td></td><td> </td> 07/24/2020 01:07:00 AM EDT [facility] THROMBOPLASTIN TIME PARTIAL PLASMA/WHOLE BLOOD <td>APTT</td><td>Routine</td><td>07/23/2020 9:07 PM EDT</td><td></td><td> </td> 07/24/2020 01:07:00 AM EDT [facility] PROTHROMBIN TIME <td>PROTIME-INR</td><td>Rout ine</td><td>07/23/2020 9:07 PM EDT</td><td></td><td> </td> 07/24/2020 01:07:00 AM EDT [facility] BLOOD COUNT COMPLETE AUTO&AUTO DIFRNTL WBC COUNT <td>C BC AND DIFFERENTIAL</td><td>Routine</td><td>07/23/2020 9:07 PM EDT</td><td></td><td> </td> 07/24/2020 01:07:00 AM EDT [facility] BLOOD TYPING ABO <td>TYPE AND SCREEN</td><td> Routine</td><td>07/23/2020 9:07 PM EDT</td><td></td><td> </td> 07/24/2020 01:07:00 AM EDT [facility] THYROID STIMULATING HORMONE TSH <td>TSH</td><td>Routin e</td><td>07/23/2020 9:07 PM EDT</td><td></td><td> </td> 07/24/2020 01:07:00 AM EDT [facility] MAGNESIUM <td>MAGNESIUM</td><td>Routin e</td><td>07/23/2020 9:07 PM EDT</td><td></td><td> </td> 07/24/2020 01:07:00 AM EDT [facility] LIPID PANEL <td>LIPID PANEL</td><td>Rout ine</td><td>07/23/2020 9:07 PM EDT</td><td></td><td> </td> 07/24/2020 01:07:00 AM EDT [facility] COMPREHENSIVE METABOLIC PANEL <td>COMPREHENSIVE METABO LIC PANEL</td><td>STAT</td><td>07/23/2020 9:07 PM EDT</td><td></td><td> </td> 07/24/2020 01:07:00 AM EDT [facility] ECG ROUTINE ECG W/LEAST 12 LDS TRCG ONLY W/O I&R <td>E CG 12- LEAD</td><td>Routine</td><td>07/23/2020 8:50 PM EDT</td><td></td><td></td> 07/24/2020 12:50:[address] [facility] Results ID Date Data Source [id number] 05/20/2021 06:56:00 PM EDT [facility] l Patient: FLORA MIJARES Observation Re [facility], [facility].VisitID: [id number] [place] [address] [phone], FRegistration Date/Time: 05/20/2021 11:40 Weight:65.7 kg (S). Height/Length:61 inches (S). BMI:27.4 FAMILY HISTORYNo significant family medical history. (Electronically signed by Anthony Calixto, P.AJosé Miguel 05/20/2021 18:40) Name Value Range Interpretation Code Description Data Ximena rce(s) Supporting Document(s) ID Date Data Source [id number] 05/20/2021 01:42:00 PM EDT [facility] [...] a fine reti culonodular pattern may be retail sales representative of interstitial edema.Atypical/viral pneumonia is not excluded. Electronically signed in PS360 by: Ant Perez M.D. 05/20/2021 13:36 EDT Name Value Range Interpretation Code Description Data Ximena rce(s) Supporting Document(s) ID Date Data Source [id number] 05/20/2021 01:05:00 PM EDT [facility] l TSYSORDER [id number] Name Value Range Interpretation Code Description Data Ximena rce(s) Supporting Document(s) MAGNESIUM 2.0 mg/dL 1.8-2.4 [facility] ID Date Data Source [id number] 05/20/2021 01:05:00 PM EDT [facility] l TSYSORDER [id number] Name Value Range Interpretation Code Description Data Ximena rce(s) Supporting Document(s) TROPONIN-HIGH SENSITIVITY 25.7 ng/L 0-60.4 [facility] ID Date Data Source [id number] 05/20/2021 01:05:00 PM EDT [facility] l TSYSORDER [id number] Name Value Range Interpretation Code Description Data Ximena rce(s) Supporting Document(s) GLUCOSE 109 mg/dL 74-106 H [facility] BLOOD UREA NITROGEN 25 mg/dL 7-18 H [facility] CREATININE 0.69 mg/dL 0.6-1.0 [facility] SODIUM 142 mmol/L 136-145 [facility] POTASSIUM 3.7 mmol/L 3.5-5.1 [facility] CHLORIDE 105 mmol/L 98-107 [facility] CO2 30 mmol/L 21-32 [facility] CALCIUM 8.3 mg/dL 8.5-10.1 [facility] ANION GAP 7.0 mmol/L 5-12 [facility] GLOMERULAR FILTRATION RATE 82 mL/min [facility] GFR IS CALCULATED IN mL/min/1.73m2 AGNIESZKA L FUNCTION: >90MILDLY DECREASED: 60-89MILDY TO MODERATELY DECREASED: 45-59 MODERATELY TO SEVERELY DECREASED: 30-44SEVERELY DECREASED: 15-29RENAL FAILURE: <15 AST 23 U/L 15-37 [facility] ALT 31 U/L 12-78 [facility] ALKALINE PHOSPHATASE 95 U/L 46-116 [facility] TOTAL BILIRUBIN 0.5 mg/dL 0.2-1.0 [facility] TOTAL PROTEIN 6.3 g/dl 6.4-8.2 L [facility] ALBUMIN 3.1 gm/dL 3.4-5.0 [facility] ID Date Data Source [id number] 05/20/2021 12:44:00 PM EDT [facility] TSYSORDER [id number] Name Value Range Interpretation Code Description Data Ximena rce(s) Supporting Document(s) WHITE BLOOD COUNT 8.4 K/mm3 4.0-10.0 [facility] al RED BLOOD COUNT 4.17 M/mm3 4.00-5.50 [facility] HEMOGLOBIN 12.1 gm/dL 12.0-16.0 [facility] HEMATOCRIT 36.6 % 36.0-48.8 [facility] MEAN CELL VOLUME 87.8 fl 80-96 [facility] MEAN CORPUSCULAR HEMOGLOBIN 29.0 pg 27.0-31.0 [facility] MEAN CORPUSCULAR HGB CONC 33.1 g/dl 32.0-36.0 [facility] RED CELL DISTRIBUTION WIDTH 15.3 % 10.0-14.5 H [facility] PLATELET COUNT 248 K/mm3 172-450 [facility] MEAN PLATELET VOLUME 9.7 fl 9.0-13.0 [facility] pital GRAN % 76.3 % 50-80.0 [facility] IG% 0.5 % 0.0-0.2 [facility] LYMPH % 11.1 % 25.0-50.0 L [facility] MONO % 10.6 % 2.0-10.0 [facility] EOS % 1.4 % 0-5.0 [facility] BASO % 0.1 % 0.0-2.0 [facility] GRAN # 6.4 K/mm3 2.0-8.00 [facility] IG# 0.0 K/mm3 0.0-0.2 [facility] LYMPH # 0.9 K/mm3 1.0-5.0 L [facility] MONO # 0.9 K/mm3 0.10-1.20 [facility] EOS # 0.1 K/mm3 0.0-0.5 [facility] BASO # 0.0 K/mm3 0.0-0.2 [facility] ID Date Data Source [id number] 05/20/2021 12:43:00 PM EDT [facility] TSYSORDER [id number] Name Value Range Interpretation Code Description Data Ximena rce(s) Supporting Document(s) PH 7.35 7.31-7.41 [facility] VENOUS PCO2 51.8 mmHg 41-51 H [facility] VENOUS PO2 37 mmHg 35-42 [facility] VENOUS BLODD O2 SATURATION 58.0 % 68-77 L [facility] VENOUS BLOOD HCO3 27.7 meq/L 24.0-25.0 [facility] trace VENOUS BASE EXCESS 1.8 -3.0-3.0 [facility] BLOOD CO2 29.3 mmol/L 23.0-32.0 [facility] ID Date Data Source [id number] 05/20/2021 12:55:00 PM EDT [facility] TSYSORDER [id number] Name Value Range Interpretation Code Description Data Ximena rce(s) Supporting Document(s) URINE RBC 0-2 /hpf 0-3 [facility] URINE WBC 1-3 /hpf 0-5 [facility] URINE EPITHELIAL CELLS 1+ /hpf 0 [facility] URINE BACTERIA TRACE NONE SEEN H [facility] ID Date Data Source [id number] 05/20/2021 12:54:00 PM EDT [facility] TSYSORDER [id number] Name Value Range Interpretation Code Description Data Ximena rce(s) Supporting Document(s) URINE COLOR. [facility] URINE APPEARANCE CLEAR [facility] GLUCOSE (UA) NEGATIVE mg/dL NEGATIVE [facility] URINE BILIRUBIN NEGATIVE NEGATIVE [facility] URINE KETONE NEGATIVE mg/dL NEGATIVE [facility] SPECIFIC GRAVITY,URINE 1.020 1.005-1.030 [facility] URINE BLOOD NEGATIVE NEGATIVE [facility] PH,URINE 7.0 5.0-9.0 [facility] URINE PROTEIN NEGATIVE mg/dL NEGATIVE [facility] URINE UROBILINOGEN NORMAL(0.2-1) mg/dL 0-1 [facility] URINE NITRATE NEGATIVE NEGATIVE [facility] URINE LEUKOCYTE ESTERASE TRACE NEGATIVE H [facility] ID Date Data Source [id number] 05/20/2021 11:52:00 AM EDT [facility] Name Value Range Interpretation Code Description Data Ximena rce(s) Supporting Document(s) SARS COV2 TRP Not Detected [facility] This lab was ordered by [facility] and reported by [facility]. ID Date Data Source [id number] 05/20/2021 01:11:00 PM EDT [facility] TSYSORDER [id number] Name Value Range Interpretation Code Description Data Ximena rce(s) Supporting Document(s) Adenovirus Not Detected Detected Not [facility] Coronavirus 229E Not Detected Detected Not [facility] Coronavirus HKU1 Not Detected Detected Not [facility] Coronavirus NL63 Not Detected Detected Not [facility] Coronavirus OC43 Not Detected Detected Not [facility] Sars Cov 2 Not Detected Detected Not [facility] Negative results do not preclude SARS-Co V-2 infection andshould not be used as the sole basis for treatment or otherpatient management decisions. Negative SARS-CoV-2 resultsmust be combined with clinical observations, patienthistory, and epidemiological information. Human Metapneumovirus Not Detected Detected Not [facility] Human Rhinovirus Not Detected Detected Not [facility] Influenza A Not Detected Detected [facility] Influenza B Not Detected Detected [facility] Parainfluenza Virus 1 Not Detected Detected [facility] Parainfluenza Virus 2 Not Detected Detected [facility] Parainfluenza Virus 3 Not Detected Detected [facility] Parainfluenza Virus 4 Not Detected Detected [facility] Respiratory Syncytial Virus Not Detected Detected [facility] Bordetella parapertus ([id number]) Not Detected Detected [facility] Bordetella pertussis (ptxP) Not Detected Detected Not [facility] Chlamydia pneumoniae Not Detected Detected Not [facility] Mycoplasma pneumoniae Not Detected Detected Not [facility] The results of the respiratory panel [...] results have been determined by using the [place] [employer] system.FilmArray is an automated in vitro diagnostic system thatutilizes nested multiplex Polymerase Chain Reaction (PCR)and high-resolution melting analysis to detect and identifymultiple nucleic acid targets from clinical specimens. ID Date Data Source GASTROINTESTINAL GI PANEL (GIPANEL) 05/12/2021 12:00:00 AM EDT eCW1 ([facility]) Name Value Range Interpretation Code Description Data Ximena rce(s) Supporting Document(s) This Gastrointestinal PCR Panel detects the following bacteria, GASTROINTESTINAL (GI) PANEL eCW1 ([facility]) ID Date Data Source CBC with Auto Differential 05/11/2021 12:00:00 AM EDT eCW1 ( [facility]) Name Value Range Interpretation Code Description Data Ximena rce(s) Supporting Document(s) 7.1 4.0-10.0 WHITE BLOOD COUNT eCW1 ([facility]) 39.4 36.0-47.0 HEMATOCRIT eCW1 ([facility]) 4.36 4.00-5.40 RED BLOOD COUNT eCW1 ([facility] hospital) 12.5 12.0-15.5 HEMOGLOBIN eCW1 ([facility]) 28.7 27.0-33.0 MEAN CORPUSCULAR HEMOGLOB IN eCW1 ([facility]) 90.4 80.0-96.0 MEAN CORPUSCULAR VOLUME e CW1 ([facility]) 31.7 32.0-36.5 MEAN CORPUSCULAR HGB CONC eCW1 ([facility]) 14.8 11.5-14.5 RED CELL DISTRIBUTION WID TH eCW1 ([facility]) 250 150-450 PLATELET COUNT, AUTOMATED eCW1 ([facility]) 66.6 36.0-66.0 NEUTROPHILS % eCW1 ([facility]) 18.5 24.0-44.0 LYMPH % eCW1 ([facility]) 0.6 0-3.0 IMMATURE GRANULOCYTE % eCW1 ([facility]) 1.4 0.0-3.0 EOS % eCW1 ([facility]) 12.3 2.0-8.0 MONO % eCW1 ([facility]) 0.6 0.0-1.0 BASO % eCW1 ([facility]) 4.7 1.5-8.5 NEUTROPHILS # eCW1 ([facility]) 0.0 0-0 NUCLEATED RED BLOOD CELL % eCW 1 ([facility]) 1.3 1.5-5.0 LYMPH # eCW1 ([facility]) 0.1 0.0-0.5 EOS # eCW1 ([facility]) 0.0 0.0-0.2 BASO # eCW1 ([facility]) 0.9 0.0-0.8 MONO # eCW1 ([facility]) ID Date Data Source MAGNESIUM LEVEL 05/11/2021 12:00:00 AM EDT eCW1 ([facility]) Name Value Range Interpretation Code Description Data Ximena rce(s) Supporting Document(s) 1.9 1.8-2.4 MAGNESIUM LEVEL eCW1 ([facility]) ID Date Data Source FREE T4 & TSH PANEL 05/11/2021 12:00:00 AM EDT eCW1 ([facility]) Name Value Range Interpretation Code Description Data Ximena rce(s) Supporting Document(s) 2.400 0.358-3.740 THYROID STIMULATING HORM ONE eCW1 ([facility]) 0.93 0.76-1.46 FREE T4 eCW1 ([facility]) ID Date Data Source Comprehensive Metabolic Profile (CMP) 05/11/2021 12:00:00 AM EDT eCW1 ([facility]) Name Value Range Interpretation Code Description Data Ximena rce(s) Supporting Document(s) 91 70-100 GLUCOSE, FASTING eCW1 ([facility]) 0.68 0.55-1.30 CREATININE FOR GFR eCW1 ([facility]) 23 7-18 BLOOD UREA NITROGEN eCW1 ([facility]) 4.8 3.5-5.1 POTASSIUM SERUM eCW1 ([facility]) > 60.0 >39 GLOMERULAR FILTRATION RATE eCW 1 ([facility]) 139 136-145 SODIUM LEVEL eCW1 ([facility]) 29 21-32 CARBON DIOXIDE LEVEL eCW1 ([facility]) 105 98-107 CHLORIDE LEVEL eCW1 ([facility]) 7.9 8.8-10.2 CALCIUM LEVEL eCW1 ([facility]) 29 7-37 AST/SGOT eCW1 ([facility]) 34 12-78 ALT/SGPT eCW1 ([facility]) 0.3 0.2-1.0 BILIRUBIN,TOTAL eCW1 ([facility]) 139 45-117 ALKALINE PHOSPHATASE eCW1 ([facility]) 6.0 6.4-8.2 TOTAL PROTEIN eCW1 ([facility]) 1.3 1.2-2.2 ALBUMIN/GLOBULIN RATIO eCW1 ([facility]) 3.4 3.2-5.2 ALBUMIN eCW1 ([facility]) ID Date Data Source [id number] 03/20/2021 11:00:00 AM EDT [facility] Name Value Range Interpretation Code Description Data Ximena rce(s) Supporting Document(s) SARS-CoV-2 (COVID-19) RNA [Presence] in Respiratory specimen by GELY with probe detection Not Detected [facility] This lab was ordered by [facility] and reported by [facility]. ID Date Data Source [id number] 01/27/2021 03:49:07 PM EDT [facility] MR LUMBAR SPINE WITHOUT CONTRAST [id number] NAL RESULTInterpreted by:Hiro Fischer MDEXAMINATION: MR LUMBAR SPINE WITHOUT CONTRAST [id number] - PARESTHESIA OF SKIN, RIGHT LEG PAIN, [...] rce(s) Supporting Document(s) ID Date Data Source [facility] Foot, complete 01/09/2021 12:00:00 AM EDT eCW1 ([facility]) Name Value Range Interpretation Code Description Data Ximena rce(s) Supporting Document(s) [facility] Foot, complete eCW1 ([facility]) ID Date Data Source [facility] Chest, 2 view (PA\\Lat) 01/09/2021 12:00:00 AM EDT eCW1 ( [facility]) Name Value Range Interpretation Code Description Data Ximena rce(s) Supporting Document(s) [facility] Chest, 2 view (PA\\Lat) eCW 1 ([facility]) ID Date Data Source [facility] Hand, complete 01/09/2021 12:00:00 AM EDT eCW1 ([facility]) Name Value Range Interpretation Code Description Data Ximena rce(s) Supporting Document(s) [facility] Hand, complete eCW1 ([facility]) ID Date Data Source CYCLIC CITRULLINATED PEPTIDE 01/07/2021 12:00:00 AM EDT eCW1 ([facility]) Name Value Range Interpretation Code Description Data Ximena rce(s) Supporting Document(s) 3 0-19 CYCLIC CITRULLINATED PEPTIDE e CW1 ([facility]) ID Date Data Source VITAMIN D 1,25 DIHYDROXY 01/07/2021 12:00:00 AM EDT eCW1 ([facility]) Name Value Range Interpretation Code Description Data Ximena rce(s) Supporting Document(s) 49.5 19.9-79.3 VITAMIN D 1,25 DIHYDROXY eCW1 ([facility]) ID Date Data Source Hepatitis B Surf AB Quant 01/07/2021 12:00:00 AM EDT eCW1 ([facility]) Name Value Range Interpretation Code Description Data Ximena rce(s) Supporting Document(s) <3.1 Immunity>9.9 HEPATITIS B SURF AB LUDIVINA NT eCW1 ([facility]) ID Date Data Source ANTI-SJOGRENS A&B ANTIBODIES 01/07/2021 12:00:00 AM EDT eCW1 ([facility]) Name Value Range Interpretation Code Description Data Ximena rce(s) Supporting Document(s) <0.2 0.0-0.9 SSA SJOGRENS A eCW1 ([facility]) <0.2 0.0-0.9 SSB SJOGRENS B eCW1 ([facility]) ID Date Data Source HEPATITIS B CORE ANTIBODY IGG 01/07/2021 12:00:00 AM EDT eCW 1 ([facility]) Name Value Range Interpretation Code Description Data Ximena rce(s) Supporting Document(s) Negative Negative HEPATITIS B CORE ANTIBODY IGG eCW1 ([facility]) ID Date Data Source ANTI DOUBLE STRAND DNA ADDIE 01/07/2021 12:00:00 AM EDT eCW1 ( [facility]) Name Value Range Interpretation Code Description Data Ximena rce(s) Supporting Document(s) ANTI DOUBLE STRAND DNA ADDIE eCW 1 ([facility]) ID Date Data Source ANTI GERALD EXTRACTABLE NUCLEAR A 01/07/2021 12:00:00 AM EDT eC W1 ([facility]) Name Value Range Interpretation Code Description Data Ximena rce(s) Supporting Document(s) < 0.2 0.0-0.9 SMITHS ANTIBODY eCW1 ([facility]) < 0.2 0.0-0.9 HALL WORKER ANTIBODY eCW1 ([facility]) ID Date Data Source ANGIOTENSIN 1 CONVERTING ENZYM 01/07/2021 12:00:00 AM EDT eC W1 ([facility]) Name Value Range Interpretation Code Description Data Ximena rce(s) Supporting Document(s) 18 14-82 ANGIOTENSIN 1 CONVERTING ENZYM eCW1 ([facility]) ID Date Data Source ANCA Panel with MPO & PR3 01/07/2021 12:00:00 AM EDT eCW1 ([facility]) Name Value Range Interpretation Code Description Data Ximena rce(s) Supporting Document(s) Myeloperoxidase Ab [Units/volume] in Serum <9.0 0.0-9.0 Antimyeloperxidase(MPO) Abs eCW1 ([facility]) Proteinase 3 Ab [Units/volume] in Serum <3.5 0.0-3.5 Antiproteinase 3 (IA-3) Abs eCW1 ([facility]) Neutrophil cytoplasmic Ab.classic [Titer] in Serum by Immuno fluorescence <1:20 Neg:<1:20 Cytoplasmic (C-ANCA) eCW1 ([facility]) Neutrophil Cytoplasmic Ab atypical [Presence] in Serum by Immunofluorescence <1:20 Neg:<1:20 Atypical pANCA eCW1 ([facility]) Neutrophil cytoplasmic Ab.perinuclear [Titer] in Serum by Immunofluorescence <1:20 Neg:<1:20 Perinuclear (P-ANCA) eCW1 ([facility]) ID Date Data Source VITAMIN D 25-HYDROXY 01/07/2021 12:00:00 AM EDT eCW1 ([facility]) Name Value Range Interpretation Code Description Data Ximena rce(s) Supporting Document(s) 42.5 30.0-100.0 TOTAL 25(OH) VITAMIN D eC W1 ([facility]) ID Date Data Source HEPATITIS C ANTIBODY INDEX 01/07/2021 12:00:00 AM EDT eCW1 ( [facility]) Name Value Range Interpretation Code Description Data Ximena rce(s) Supporting Document(s) < 0.0 <0.8 HEPATITIS C VIRUS ADDIE IND EX eCW1 ([facility]) ID Date Data Source ERYTHROCYTE SEDIMENTATION RATE 01/07/2021 12:00:00 AM EDT eC W1 ([facility]) Name Value Range Interpretation Code Description Data Ximena rce(s) Supporting Document(s) 23 0-20 ERYTHROCYTE SEDIMENTATION RATE eCW1 ([facility]) ID Date Data Source C REACTIVE PROTEIN QUANTITATIV (At [facility]) 01/07/2021 12:00 :00 AM EDT eCW1 ([facility]) Name Value Range Interpretation Code Description Data Ximena rce(s) Supporting Document(s) 0.30 0.00-0.30 C REACTIVE PROTEIN QUANTI TATIV eCW1 ([facility]) ID Date Data Source CBC with Differential 01/07/2021 12:00:00 AM EDT eCW1 ([facility]) Name Value Range Interpretation Code Description Data Ximena rce(s) Supporting Document(s) 5.6 4.0-10.0 WHITE BLOOD COUNT eCW1 ([facility]) 36.4 42.0-52.0 HEMATOCRIT eCW1 ([facility]) 11.5 13.5-17.5 HEMOGLOBIN eCW1 ([facility]) 4.00 4.30-6.10 RED BLOOD COUNT eCW1 ([facility] 31.6 32.0-36.5 MEAN CORPUSCULAR HGB CONC eCW1 ([facility]) 28.8 27.0-33.0 MEAN CORPUSCULAR HEMOGLOB IN eCW1 ([facility]) 91.0 80.0-96.0 MEAN CORPUSCULAR VOLUME e CW1 ([facility]) 62.1 36.0-66.0 NEUTROPHILS % eCW1 ([facility]) 15.1 11.5-14.5 RED CELL DISTRIBUTION WID TH eCW1 ([facility]) 264 150-450 PLATELET COUNT, AUTOMATED eCW1 ([facility]) 1.6 0.0-3.0 EOS % eCW1 ([facility]) 22.2 24.0-44.0 LYMPH % eCW1 ([facility]) 13.2 2.0-8.0 MONO % eCW1 ([facility]) 3.5 1.5-8.5 NEUTROPHILS # eCW1 ([facility]) 0.5 0.0-1.0 BASO % eCW1 ([facility]) 1.2 1.5-5.0 LYMPH # eCW1 ([facility]) 0.1 0.0-0.5 EOS # eCW1 ([facility]) 0.7 0.0-0.8 MONO # eCW1 ([facility]) 0.0 0.0-0.2 BASO # eCW1 ([facility]) ID Date Data Source [id number] 12/16/2020 09:16:10 PM EDT [facility] Name Value Range Interpretation Code Description Data Ximena rce(s) Supporting Document(s) &PDF [facility] ZMJPVx9hKxWKQsDc29/LTLcnGQZie2XeQFvcHWc3ADxpMEXwB1QlgVopLMgOVuoIJU0mIVLGOJ8tWi2f pYy [file] [id number]== ID Date Data Source [id number] 10/29/2020 02:38:00 PM EST MEDENT ([facility]) Name Value Range Interpretation Code Description Data Ximena rce(s) Supporting Document(s) IgG P93 AB Laboratory test result MEDENT ([facility], ) IgG P66 AB Laboratory test result [facility] ([facility], ) IgG P45 AB Laboratory test result [facility] ([facility]) IgG P41 AB Laboratory test result Abnormal (applies to non -numeric results) [facility] ([facility], ) IgG P58 AB [facility] result [facility] IgG P30 AB Laboratory test result [facility] ([facility]) IgG P39 AB Laboratory test result [facility] ([facility]) IgG P23 AB Laboratory test result [facility] ([facility], ) IgG P28 AB Laboratory test result [facility] ([facility], ) IgG P18 AB Laboratory test result [facility] ([facility]) Lyme IgG WB Interpretation Laboratory test result [facility] ([facility]) Positive: 5 of the following Borrelia-specific bands: 18,23,28,30,39,41,45,58, 66, and 93. Negative: No bands or banding patterns which do not meet positive criteria. IgM P41 AB Laboratory test result [facility] ([facility]) IgM P23 AB Laboratory test result [facility] ([facility]) IgM P39 AB Laboratory test result [facility] ([facility]) Lyme IgM WB Interpretation Laboratory test result [facility] ([facility]) Note: An equivocal or positive [...] are those recommended by CDC/ASTPHLD. p23=Osp C, d65=ftozylhct . Note: Sera from individuals with the following may cross react in the Lyme Line Blot assays: other spirochetal diseases (periodontal disease, leptospirosis, rel apsing fever, yaws, and pinta); connective autoimmune (Rheumatoid Arthritis and Systemic Lupus Erythematosus and also individuals with Antinuclear Antibody); other infections (Falman Spotted Fever; Amena-Joseph Virus, and Cytomegalovirus). . ID Date Data Source [id number] 10/29/2020 02:38:00 PM EST [facility] ([facility]) Name Value Range Interpretation Code Description Data Ximena rce(s) Supporting Document(s) Antinuclear Antibodies Direct Laboratory test result [facility] ([facility]) Performed at: RN - [facility] [address] [id number] [employer]: Zeenat Omer MD, Phone: [phone] ID Date Data Source [id number] 10/29/2020 02:38:00 PM EST [facility] ([facility]) Name Value Range Interpretation Code Description Data Ximena rce(s) Supporting Document(s) Erythrocyte sedimentation rate by 2H Westergren method 21 mm/hr 0-2 0 [facility] ([facility]) Rheumatoid factor [Units/volume] in Serum or Plasma 47.2 IU/ml [facility] ([facility], ) ID Date Data Source [id number] 10/02/2020 04:22:00 PM EST [facility] DATE OF EXAMINATION: 10/02/2020 15:45 EST [...] rce(s) Supporting Document(s) ID Date Data Source [id number] 09/29/2020 11:47:00 AM EST MED[facility] ([facility], ) Name Value Range Interpretation Code Description Data Ximena rce(s) Supporting Document(s) Thyroid Stimulating Hormone 1.240 uIU/ML 0.358-3.[address] [facility] ([facility] ) Free T4 1.23 ng/dL 0.76-1.46 [facility] ([facility], ) ID Date Data Source [id number] 09/29/2020 11:47:00 AM EST [facility] ([facility]) Name Value Range Interpretation Code Description Data Ximena rce(s) Supporting Document(s) Blood Urea Nitrogen 27 mg/dL 7-18 [facility] ([facility], ) Glucose, Fasting 103 mg/dL 70-100 [facility] ([facility], ) Glomerular Filtration Rate Laboratory test result [facility] ([facility]) <content>Units are mL/min/1.73 m2</content>
<content></content>
<content>Chronic Kidney Disease Staging per NKF:</content>
<content></content>
<content>Stage I & II GFR >=60 Normal to Mildly Decreased</content>
<content>Stage III GFR 30- 59 Moderately Decreased</content>
<content>Stage IV GFR 15-29 Severely Decreased</content>
<content>Stage V GFR <15 Very Little GFR Left</content>
<content>ESRD GFR <15 on CONCRETE ANALYST</content>
<content></content> Creatinine For GFR 0.89 mg/dL 0.70-1.30 [facility] ([facility], ) Sodium Level 141 meq/L 136-145 [facility] ([facility]) Potassium Serum 4.4 meq/L 3.5-5.1 [facility] ([facility]) Carbon Dioxide Level 30 meq/L 21-32 [facility] ([facility]) Chloride Level 107 meq/L 98-107 [facility] ([facility]) Anion Gap 4 meq/L 8-16 [facility] ([facility], ) Calcium Level 8.7 mg/dL 8.8-10.2 [facility] ([facility]) Alt/SGPT 38 U/L 12-78 [facility] ([facility]) Ast/Sgot 28 U/L 7-37 [facility] ([facility]) Alkaline Phosphatase 124 U/L 45-117 [facility] ([facility]) Bilirubin,Total 0.4 mg/dL 0.2-1.0 [facility] ([facility]) Albumin 3.7 GM/DL 3.2-5.2 [facility] ([facility]) Total Protein 6.5 GM/DL 6.4-8.2 [facility] ([facility]) Albumin/Globulin Ratio 1.3 [facility] ([facility]) ID Date Data Source [id number] 09/29/2020 11:47:00 AM EST [facility] ([facility]) Name Value Range Interpretation Code Description Data Ximena rce(s) Supporting Document(s) White Blood Count 6.8 10 4.0-10.0 [facility] ([facility], ) Red Blood Count 4.52 10 4.30-6.10 [facility] ([facility]) Hemoglobin 12.7 g/dL 13.5-17.5 [facility] ([facility]) Hematocrit 41.2 % 42.0-52.[address] [facility] Mean Corpuscular Volume 91.2 fl 80.0-96.[address] [facility] Mean Corpuscular Hemoglobin 28.1 pg 27.0-33.0 [facility] ([facility]) Mean Corpuscular HGB Conc 30.8 g/dL 32.0-36.5 [facility] ([facility]) Platelet Count, Automated 270 10 150-450 [facility] ([facility]) Nucleated Red Blood Cell % 0.0 % 0-0 MED [facility] ([facility]) Red Cell Distribution Width 14.5 % 11.5-14.5 [facility] ([facility]) ID Date Data Source CBC - Complete Blood Count 09/29/2020 12:00:00 AM EST eCW1 ( [facility]) Name Value Range Interpretation Code Description Data Ximena rce(s) Supporting Document(s) 41.2 42.0-52.0 eCW1 ([facility]) 6.8 4.0-10.0 eCW1 ([facility]) 12.7 13.5-17.5 eCW1 ([facility]) 91.2 80.0-96.0 eCW1 ([facility]) 4.52 4.30-6.10 eCW1 ([facility]) 270 150-450 eCW1 ([facility]) 30.8 32.0-36.5 eCW1 ([facility]) 28.1 27.0-33.0 eCW1 ([facility]) 14.5 11.5-14.5 eCW1 ([facility]) ID Date Data Source [id number] 09/10/2020 02:35:00 PM EST [facility] Patient: FLORA MIJARES Observation Re [facility].VisitID: [id number] [place] [address] [phone], [facility] Date/Time: 08/25/2020 17:57 Weight:74.8 kg (S). Height/Length:61 inches (S). BMI:31.2 PAST HISTORYProblems:Coronary Artery Disease [Chronic].Heart Disease [Chronic].Hypertension [Chronic].Neuropathy [Chronic].Lung Disease [Chronic].COPD - Chronic Obstructive Pulmonary Disease [Chronic].Gastroesophageal Reflux Disease [Chronic].Myofascial Strain [Chronic].Atrial fibrillation.COPD - Chronic Obstructive Pulmonary Disease.Palpitations. Additional Surgeries:Appendectomy.Cardiac Catheterization.Cardiac Surgery. (Multiple stents)Colonoscopy.Coronary Artery Bypass Graft. (5 [id number])Endoscopy.Hernia Repair.Pacemaker.Tubal Ligation.Ventral Hernia repair . Medications:Metoprolol Tartrate [...] rce(s) Supporting Document(s) ID Date Data Source [id number] 08/25/2020 09:30:00 PM EST [facility] [...] rce(s) Supporting Document(s) ID Date Data Source [id number] 09/01/2020 08:15:00 AM EST [facility] Name Value Range Interpretation Code Description Data Ximena rce(s) Supporting Document(s) [facility] ID Date Data Source [id number] 09/01/2020 08:15:00 AM EST [facility] Name Value Range Interpretation Code Description Data Ximena rce(s) Supporting Document(s) [facility] ID Date Data Source [id number] 08/25/2020 07:35:00 PM EST [facility] Name Value Range Interpretation Code Description Data Ximena rce(s) Supporting Document(s) TSH 1.25 uIU/mL 0.36-3.74 [facility] ID Date Data Source [id number] 08/25/2020 07:24:00 PM EST [facility] Name Value Range Interpretation Code Description Data Ximena rce(s) Supporting Document(s) PARTIAL THROMBOPLASTIN TIME 22.9 SECONDS 21.2-27.3 [facility] ID Date Data Source [id number] 08/25/2020 07:24:00 PM EST [facility] Name Value Range Interpretation Code Description Data Ximena rce(s) Supporting Document(s) PROTHROMBIN TIME (PATIENT) 11.0 SECONDS 9.1-11.6 [facility] INR 1.06 0.87-1.06 [facility] ID Date Data Source [id number] 08/25/2020 07:24:00 [facility] Name Value Range Interpretation Code Description Data Ximena rce(s) Supporting Document(s) LACTIC ACID 0.7 mmol/L 0.4-2.0 [facility] ID Date Data Source [id number] 08/25/2020 07:24:00 PM [facility] Name Value Range Interpretation Code Description Data Ximena rce(s) Supporting Document(s) B-TYPE NATRIURETIC PEPTIDE 286 pg/ml 0-450 [facility] ID Date Data Source [id number] 08/25/2020 07:24:00 PM [facility] Name Value Range Interpretation Code Description Data Ximena rce(s) Supporting Document(s) MAGNESIUM 2.0 mg/dL 1.8-2.4 [facility] ID Date Data Source [id number] 08/25/2020 07:24:00 PM [facility] Name Value Range Interpretation Code Description Data Ximena rce(s) Supporting Document(s) TROPONIN I < 0.017 ng/mL 0.0-0.056 [facility] ID Date Data Source [id number] 08/25/2020 07:24:00 PM [facility] Name Value Range Interpretation Code Description Data Ximena rce(s) Supporting Document(s) LIPASE 69 U/L 73-393 L [facility] ID Date Data Source [id number] 08/25/2020 07:24:00 PM [facility] Name Value Range Interpretation Code Description Data Ximena rce(s) Supporting Document(s) GLUCOSE 93 mg/dL 74-106 [facility] BLOOD UREA NITROGEN 26 mg/dL 7-18 [facility] CREATININE 0.9 mg/dL 0.6-1.0 [facility] SODIUM 144 mmol/L 136-145 [facility] POTASSIUM 4.3 mmol/L 3.5-5.1 [facility] CHLORIDE 105 mmol/L 98-107 [facility] CO2 29 mmol/L 21-32 [facility] CALCIUM 9.2 mg/dL 8.5-10.1 [facility] ANION GAP 10.0 mmol/L 5-12 [facility] GLOMERULAR FILTRATION RATE 61 mL/min [facility] GFR IS CALCULATED IN mL/min/1.73m2 AGNIESZKA L FUNCTION: >90MILDLY DECREASED: 60-89MILDY TO MODERATELY DECREASED: 45-59 MODERATELY TO SEVERELY DECREASED: 30-44SEVERELY DECREASED: 15-29RENAL FAILURE: <15 AST 29 U/L 15-37 [facility] ALT 46 U/L 12-78 [facility] ALKALINE PHOSPHATASE 117 U/L 46-116 H [facility] TOTAL BILIRUBIN 0.5 mg/dL 0.2-1.0 [facility] TOTAL PROTEIN 7.2 g/dl 6.4-8.2 [facility] ALBUMIN 3.8 gm/dL 3.4-5.0 [facility] ID Date Data Source [id number] 08/25/2020 07:17:00 PM [facility] Name Value Range Interpretation Code Description Data Ximena rce(s) Supporting Document(s) WHITE BLOOD COUNT 7.5 K/mm3 4.0-10.0 [facility] al RED BLOOD COUNT 4.48 M/mm3 4.00-5.50 [facility] HEMOGLOBIN 13.1 gm/dL 12.0-16.0 [facility] HEMATOCRIT 40.0 % 36.0-48.8 [facility] MEAN CELL VOLUME 89.3 fl 80-96 [facility] MEAN CORPUSCULAR HEMOGLOBIN 29.2 pg 27.0-31.0 [facility] MEAN CORPUSCULAR HGB CONC 32.8 g/dl 32.0-36.0 [facility] RED CELL DISTRIBUTION WIDTH 15.6 % 10.0-14.5 H [facility] PLATELET COUNT 296 K/mm3 172-450 [facility] MEAN PLATELET VOLUME 9.3 fl 9.0-13.0 [facility] pital GRAN % 69.5 % 50-80.0 [facility] IG% 0.3 % 0.0-0.2 H [facility] LYMPH % 16.9 % 25.0-50.0 L [facility] MONO % 12.0 % 2.0-10.0 H [facility] EOS % 1.2 % 0-5.0 [facility] BASO % 0.1 % 0.0-2.0 [facility] GRAN # 5.2 K/mm3 2.0-8.00 [facility] IG# 0.0 K/mm3 0.0-0.2 [facility] LYMPH # 1.3 K/mm3 1.0-5.0 [facility] MONO # 0.9 K/mm3 0.10-1.20 [facility] EOS # 0.1 K/mm3 0.0-0.5 [facility] BASO # 0.0 K/mm3 0.0-0.2 [facility] ID Date Data Source [id number] 08/13/2020 10:29:24 AM EST [facility] Name Value Range Interpretation Code Description Data Ximena rce(s) Supporting Document(s) &PDF [facility] CPWHYj6vNwQGXtHo05/BSZrgKMMjg9TkAIezAXs3YKmxTKAyY4GctAnzYBdTEixJPM3jFTBSVY1rUGAk waW [file] AgICAgICAgICAgICAgICAgICAgICAgICAgICAgICAgICAgICAgICAgICAgICAgICAgICAgICAgICAgIC AgICAgICAgICAgICAgICAgICAgICAgDQogICAgICAgICAgICAgICAgICAgICAgICAgICAgICAgICAgIC AgICAgICAgICAgICAgICAgICAgICAgICAgICAgICAg ICAgICAgICAgICAgICAgICAgICAgICAgICAgICAgICAgDQogICAgICAgICAgICAgICAgICAgICAgICAg ICAgICAgICAgICAgICAgICAgICAgICAgICAgICAgICAgICAgICAgICAgICAgICAgICAgICAgICAgICAg ICAgICAgICAgICAgICAgDQogICAgICAgICAgICAgIC AgICAgICAgICAgICAgICAgICAgICAgICAgICAgICAgICAgICAgICAgICAgICAgICAgICAgICAgICAgIC AgICAgICAgICAgICAgICAgICAgICAgICAgDQogICAgICAgICAgICAgICAgICAgICAgICAgICAgICAgIC AgICAgICAgICAgICAgICAgICAgICAgICAgICAgICAg ICAgICAgICAgICAgICAgICAgICAgICAgICAgICAgICAgICAgDQogICAgICAgICAgICAgICAgICAgICAg ICAgICAgICAgICAgICAgICAgICAgICAgICAgICAgICAgICAgICAgICAgICAgICAgICAgICAgICAgICAg ICAgICAgICAgICAgICAgICAgDQogICAgICAgICAgIC AgICAgICAgICAgICAgICAgICAgICAgICAgICAgICAgICAgICAgICAgICAgICAgICAgICAgICAgICAgIC AgICAgICAgICAgICAgICAgICAgICAgICAgICAgDQogICAgICAgICAgICAgICAgICAgICAgICAgICAgIC AgICAgICAgICAgICAgICAgICAgICAgICAgICAgICAg ICAgICAgICAgICAgICAgICAgICAgICAgICAgICAgICAgICAgICAgDQogICAgICAgICAgICAgICAgICAg ICAgICAgICAgICAgICAgICAgICAgICAgICAgICAgICAgICAgICAgICAgICAgICAgICAgICAgICAgICAg ICAgICAgICAgICAgICAgICAgICAgDQogICAgICAgIC AgICAgICAgICAgICAgICAgICAgICAgICAgICAgICAgICAgICAgICAgICAgICAgICAgICAgICAgICAgIC RnWSWbCKIbIFLqEPLzOMWdECThJKYeQAQtVXChAXSyMXn1Y8geYMLwDMHoEN4eAZa5Lb9+DQoNCmVuZH C9mwFigD4ROW6fu3EiIFgvQQUtk9JsGMe3ZD4CVIZt FWdgUL1QPJkygx7HGYEtKOIgwBYFn4viIkBxJEN7LNTcHcsyUR5SYPIrM4usvwFfBCZkEQCGKAlgNTIC JT4ZTqLrZ2WtkU52WKFAQe0+SZqvcfYeOanTToH1XIYda3ReJMi5RA4WZLHnLWvlMS9DNEOuaE0lSVcs NV7PImYwBdFfVFOWReBsT31uwQZvWGj4O8ZzQtHkUV VkRmlsZXMgPDwvTmFtZXMgWyBdDQogID4+ID4+RPibDN6FEWbkteKwWXLqWj6SQSNhSIC2TSKutNGeSW zgMJIAPUebZD4XoVGtDPS5rJ8nDFsbGYQqLKXkU5sYIxAyhYpyDQ58aRmuwuAvbCVyBLs+Ry0XTM7fu4 GgGFn8unNwWZdjVNG2WUayKIPhFALuOWRcIFW2HSG9 PHKRRtPgKORkWBAaXJfjBHTsPSYhli1JQOErMMJqUTLuAhHuTKKaGQQxBBkuFXLkMXT8TlY3NYRbHACo ZK8URbZkCXCqGIDqKWgrHPObRPLyzi2FYPWbBVKsVfZ4GJCuNYQzAGMoCMkcKTAwHAEaDgDuAZWePSJf OP5NClSxSUNmTSY0SHGmTCNwVHCvfc2UMXHePKYsAQ LxZTRaDIZeICHpEUehRVXdDNM6BYN2ECBgDQUeKS5JOfOjWQIzMMWkAwIcEKVlYGXomn8CKZQqZBJhNS B1ENXkAYGjIURyOPhuMGFvFDK9FPXvXLKfQKXrQM2KFgHhWFDvRXY2OFRyZRBxKIEjpi8LPDUcROWiRb s1YKQlPUNvQXElXEwbELGfZTGmBUjpGLCsAQXeYT2O GoJcACNiXEW6YOOfBRTaCZHyrb9WUYOrOKAlUJhlSIBkVSRgXWAsUHinRKHzIDU0WjA8RXEhDLLqRC1M HeZkDInqIPQJXki0JXzyZ5p3QGQlXJ9NO6Crf8IzWLceCJDHEThpFB4yxvDhMSPsMs4JB5zJHks3ZrY1 ISU5HHYoZhN0NcD1ZiYxYIdiOJKfEgAvWkU6PD2lFU VmRIF2PyZ7NjX3NfYgBaC0C0Y0W2TnMmRuDKH3CNoyTwLmGS2FNg4GKeP3DEE4kZEsNq3HZHt9ARGWBp UtIR7FBEm= ID Date Data Source [id number] 07/28/2020 09:44:08 AM EST [facility] Name Value Range Interpretation Code Description Data Ximena rce(s) Supporting Document(s) EKG [facility] PLQLAh9wUeUQZbJnr2RyYaWyGDIjMN8fnpn1U4G6hYUeQ1ZacQGlx6sgH4FwA3SkIEOmOZCCHB7ToYDo jb2 [file] SpSWRiQXQKQz4Ps247BXRoKHCSGhe+BshoqSNolWnrRWBPPVV9LtYBFONDE1H= ID Date Data Source [id number] 07/28/2020 09:35:14 AM EST [facility] NT INFORMATIONPatient MRN Name Date of Age Gend*PT [id number] Flora Mijares 1940 79 years F IPPT Location Admission Date/Time Visit ID Attending [id number] 07/23/202045 --- Kai Dahl MD([id number]) EPI ID CSN Admitting Provider [id number] Pauline Hernandez MD([id number]) [facility] DISCHARGE SUMMARYPatient Name: Flora Mijares of : 1940 Age 79 yearsPrimary Physician: HELIO ZABALA MD PCP Efupdpadj Date: 07/23/2020 Discharge Date:She will be discharged from [facility] Diagnoses:Principal Problem:Symptomatic bradycardia status post PPM [...] by mouth 2 (two) times a dayUmeclidinium Manderson (INCRUSE ELLIPTA) 62.5 MCG/INH AEPB Inhale 1 [...] preserved left ventricular function by echo performed inS2018She does have history of hypertension hyperlipidemia COPD [...] mental status, speech normal, alert and oriented f5Jgrvazbuiie:Imaging:Chest x-ray post pacemaker placementIMPRESSION: No pneumothorax or [...] rce(s) Supporting Document(s) ID Date Data Source [id number] 07/28/2020 07:57:42 AM EST [facility] Name Value Range Interpretation Code Description Data Ximena rce(s) Supporting Document(s) SODIUM 138 mmol/L (136-145) [facility] POTASSIUM 4.5 mmol/L (3.6-5.2) [facility] CHLORIDE 103 mmol/L (100-108) [facility] CO2 28 mmol/L (22-31) [facility] ANION GAP 7 mmol/L (7-16) [facility] UREA NITROGEN 24 mg/dL (7-24) [facility] CREATININE 0.52 mg/dL (0.60-1.00) L [facility] BUN/CREAT RATIO 46.2 RATIO (10.0-20.0) H [facility] GLUCOSE 106 mg/dL (70-99) H [facility] CALCIUM 8.5 mg/dL (8.4-10.2) [facility] GFR >60 ml/min/1.73m2 (>59) [facility] GFR ( AMER) >60 ml/min/1.73m2 (>59) [facility] GFR INTERPRETATION [facility] --NORMAL KIDNEY FUNCTION OR MILD DISEASE - GFR >OR= 60CHRONIC KIDNEY DISEASE - GFR 15 - 59RENAL FAILURE - GFR <15 Est. GFR calculation based on the MDRDstudy equation, which assumes a steadystate for creatinine. Est. GFR should notbe used for medication dosing. ID Date Data Source [id number] 07/28/2020 07:22:26 AM EST [facility] Name Value Range Interpretation Code Description Data Ximena rce(s) Supporting Document(s) WBC 5.7 10*3/uL (4.1-11.0) [facility] RBC 3.60 10*6/uL (4.00-5.40) L [facility] HGB 10.5 g/dL (12.0-16.0) L [facility] HCT 31.0 % (36.0-47.0) L [facility] MCV 86.3 fL (80.0-95.0) [facility] MCH 29.1 pg (27.0-32.0) [facility] MCHC 33.7 g/dL (32.0-36.0) [facility] RDW 15.5 % (10.5-14.5) H [facility] PLT 207 10*3/uL (150-450) [facility] MPV 7.4 fL (7.1-10.7) [facility] ID Date Data Source [id number] 07/27/2020 12:24:10 PM EST [facility] Name Value Range Interpretation Code Description Data Ximena rce(s) Supporting Document(s) &PDF [facility] POQTMe5oZpVDHwQj80/IDQyvSHXwu7XsAXceAKd2DZfkUMGcU6TdsZkkBEmDYdkYRL6kFRFBHJ7pLMKz pYy [file] kfNvIU9zrD51igoh/vp corporate development/pr4SUqKuTJ3SedEBPHGfab9VvPH6e6CD3mTTluHdc7MT0uraGTEpAdOON9xp [file] JJmNU6/LUZ ELENA+X6KsH4PuSLBCMs1uy/4Cxi96x8yWM7inCS8SCUwPdhKvRMnCkSeOdAC6dpiJ4Ut7MlAdF [file] zPDeSdEW2OPOj= ID Date Data Source [id number] 07/27/2020 10:33:50 AM EST [facility] NT INFORMATIONPatient MRN Name Date of Age Gend*PT [id number] Flora Mijares 1940 79 years F OBSPT Location Admission Date/Time Visit ID Attending [id number] 07/23/202045 --- Kai Dahl MD([id number]) EPI ID CSN Admitting Provider [id number] Pauline Hernandez MD([id number]) [facility] DISCHARGE SUMMARYPatient Name: Flora Mijares of : 1940 Age 79 yearsPrimary Physician: HELIO ZABALA MD PCP Msrvjhmpn Date: 07/23/2020 Discharge Date:She will be discharged from [facility] Diagnoses:Principal Problem:Symptomatic bradycardia status post PPM [...] by mouth 2 (two) times a dayUmeclidinium Manderson (INCRUSE ELLIPTA) 62.5 MCG/INH AEPB Inhale 1 [...] mental status, speech normal, alert and oriented n1Cacklngfmbk:Imaging :Chest x-ray post pacemaker placementIMPRESSION: No pneumothorax [...] rce(s) Supporting Document(s) ID Date Data Source [id number] 07/27/2020 07:13:46 AM EST [facility] Name Value Range Interpretation Code Description Data Ximena rce(s) Supporting Document(s) EKG [facility] LCSPMu0lVzKAPnMnk1HlOyPsVIIpRV1xusz7P4T8nGHaQ9JhaIIjc7dgH2BdY5KmXAGsDAPCDD7XnFMk jb2 [file] fi8/Plycor Operator+HfxU+7ZB/lfgUln+MNFQX3BUgN/WXwx3GD0 6QZypoICTti1GXB47o7JCMLvo243JUmk81Rqf2FpNOsnFk7qv/LTi55ygERj29iONQx98lpGAepue3+N pP11QwRt7Hm27q9RZUiIVD6DHBpR5/CLO3Yh8TEuB6UD9f6Tg8GJbKEglr4h2gY1y1sgKSz2R7RQSlb6 Wrozjwpsei5A6qi21OA5K3Ifi2Kck3YbL+1tfb1243 n6Mz0QXwjN0h6zh4Ewd0FauwzAlmZKaCkqSdTIdbEd7yWC2d5T0UMCZ1XNoR0pWcL7eMxaxxTG6hZrgC HbjevxP+1YR/NeFfTfhXE/0HiS819B4R+FcT/bCHlaCwH02gH44Cn2BRJX6sgHr6QMhkYi8MCztyxtok mY98Keu/StyADbgDD+AJvIAhF+aZv5HcuQ0XjGVRIa +894F2P1IzEN3C2X7J/p2049E5qiLm6wz/dsq/Mn0+gCd+a1U6hCPUBunxJvSuiPQ5CgKy2Lo9sYQq3O 4cpQaumSpzlKccyopzWIjX3V5WX2tXO7H7xnDcWFmUx8L4L4uxAxq3zwDeHHkoY5vcmCjbbRtfUi81P+ 731Hx/yl7F+cN3l1DzaO5m7Pzgj/h25LX6Ud0Mzhmu fk1WX50k5ekZA/7G0vpV+TFzgDO7hcdiMB/gBzFia98XkN+vsFda+11hr+TjrbBXM/yZFfZqhW+2wl4t 6Je3Qa3cEnxgJ8dMlEBeb4KodzxN+YFfi0mqX/BtT2dt0wWeW7fFf6xqH16ugQRn2Fnd0w0qzckHohFx 83f6b0dg6CINlfvK0Xyi1yu3xtNoWo5taD1C3Pkisx 2b14TBqs2e1ElnkW0czWO+kCXw5vyOf82aYw/cIq41JV/UqqbC92AfgQSUTrEzgrQLTKRa7DOcMfxbpY 7bR81fZDq/vGSvEpf/cVeMp3e7D/WF/VuJz4XHtj31Kh7Q4/rKAIvYDY9OGrmNPoWp6C9ueWrvfjT6Xs NukWqjShUZvvCeTbuNCy6Gq+PWOrB+b6Un5Zeu02Nt 2sdl8kyGBj1GStmOR+NXdEFGvmsSV7Ct4aPlsZh5BiSNbe11cM+hx4bqVu5CwfxvYj975h4673d3+k72 Sv1+zc74j0yh0qiMGbTY1/25mA6yGQ/a8K/2U++F/BhtZ690lr8KkWI25THnazaVY3sLq8YWCa7o4aVg fQ3Kjt7jgy1Y96S/hvs13K/jaihxn4a9VYnI9sQt57 195ch3Jrzm+Jd3CKEQL/9qw7/a8K82/KsN/7vVz4cwh/ao9++bR0FPAcODJ0nmfcwvpamm4hpLYRnbT6 nnvRowxvPqwLVOuFetb+x6v5A7iEZGktmoT9HYpjMCwFN0Q+XEhEU0HD26004m9Xd/iqz228Z/8K82/K hl9S0nSr63j6+Vm0s9bm5a+VeyIafWc/Uz6E72lSmc Gd39bkLSpsCmNR9RPunXu069+Ff+STRUCTURAL RIGGER/6U/9bRd66TtsrPD4TIkgPV/AEXsCQi/A1c5FtoPaTy2HvjTeV h3FjgObBthRt8PoFtm26Xzd0f6x/Cj/KZa/c98Ap2h4zD9/QMR/9Dk6Ti78j/OeRD2ay44dXJkb+yj67 4hnive+AFsyc7GAKYO2dj67Cma+PeUSn8AMwurg0O7 [place]/IqBoqkb2q00arc4JlOn/YzA9pQ7EIuQg1t/FhdP+zVCX/bFc+ia4jdTgU8pQTBFs5K4h9L/uHwn8 [file] MCBSCgo+PfogqSYlfCpqYCMZZAXuZIIZEFUYP0Q= ID Date Data Source [id number] 07/27/2020 07:09:09 AM EST [facility] Name Value Range Interpretation Code Description Data Ximena rce(s) Supporting Document(s) SODIUM 138 mmol/L (136-145) [facility] POTASSIUM 4.1 mmol/L (3.6-5.2) [facility] CHLORIDE 102 mmol/L (100-108) [facility] CO2 28 mmol/L (22-31) [facility] ANION GAP 8 mmol/L (7-16) [facility] UREA NITROGEN 33 mg/dL (7-24) H [facility] CREATININE 0.62 mg/dL (0.60-1.00) [facility] BUN/CREAT RATIO 53.2 RATIO (10.0-20.0) [facility] GLUCOSE 116 mg/dL (70-99) H [facility] CALCIUM 8.9 mg/dL (8.4-10.2) [facility] GFR >60 ml/min/1.73m2 (>59) [facility] GFR ( AMER) >60 ml/min/1.73m2 (>59) [facility] GFR INTERPRETATION [facility] --NORMAL KIDNEY FUNCTION OR MILD DISEASE - GFR >OR= 60CHRONIC KIDNEY DISEASE - GFR 15 - 59RENAL FAILURE - GFR <15 Est. GFR calculation based on the MDRDstudy equation, which assumes a steadystate for creatinine. Est. GFR should notbe used for medication dosing. ID Date Data Source [id number] 07/27/2020 06:35:12 AM EST [facility] Name Value Range Interpretation Code Description Data Ximena e(s) Supporting Document(s) WBC 6.3 10*3/uL (4.1-11.0) [facility] [place] RBC 3.75 10*6/uL (4.00-5.40) L [facility] HGB 11.2 g/dL (12.0-16.0) L [facility] HCT 32.0 % (36.0-47.0) L [facility] [place]FORMED [place] [address] [place] [address] MCV 85.2 fL (80.0-95.0) [facility] MCH 29.7 pg (27.0-32.0) [facility] MCHC 34.9 g/dL (32.0-36.0) [facility] RDW 15.5 % (10.5-14.5) H [facility] PLT 203 10*3/uL (150-450) [facility] MPV 7.4 fL (7.1-10.7) [facility] ID Date Data Source [id number] 07/26/2020 11:33:04 AM EST [facility] Name Value Range Interpretation Code Description Data Ximena rce(s) Supporting Document(s) APTT 24.9 s (22.0-34.3) [facility] ID Date Data Source [id number] 07/26/2020 11:33:04 AM EST [facility] Name Value Range Interpretation Code Description Data Ximena rce(s) Supporting Document(s) PT 10.6 s (9.2-11.9) [facility] INR 1.01 [facility] SUGGESTED THERAPEUTIC RANGES USING INR F ORSTABILIZED ANTICOAGULATED PATIENTS:STANDARD DOSE THERAPY INR 2.0-3.0 DVT, PE, PREVENT DVT OR EMBOLISMHIGH DOSE THERAPY INR 2.5-3.5 PREVENT EMBOLISM FROM MECHANICAL HEART VALVE ID Date Data Source [id number] 07/26/2020 10:25:03 AM EST [facility]FORMATIONPatient MRN Name Date of Age Gend*PT [id number] Flora Mijares 1940 79 years F OBSPT Location Admission Date/Time Visit ID Attending ProviderD-[id number] 07/23/202045 --- Kai Dahl MD([id number]) EPI ID CSN Admitting Provider [id number] Pauline Hernandez MD([id number]) [facility] DISCHARGE SUMMARYPatient Name: Flora Mijares of : 1940 Age 79 yearsPrimary Physician: HELIO ZABALA MD PCP Kgncmhazl Date: 07/23/2020 Discharge Date:She will be discharged from [facility] Diagnoses:Principal Problem:Symptomatic bradycardia status post PPM [...] by mouth 2 (two) times a dayUmeclidinium Manderson (INCRUSE ELLIPTA) 62.5 MCG/INH AEPB Inhale 1 [...] mental status, speech normal, alert and oriented h2Fpuruowfqdv:Imaging:Chest x-ray post pacemaker placementIMPRESSION: No pneumothorax or [...] rce(s) Supporting Document(s) ID Date Data Source [id number] 07/26/2020 09:09:03 AM EST [facility]FORMATIONPatient MR[facility] Name Date of Age Gend*PT [id number] Flora Mijares 1940 79 years F OBSPT Location Admission Date/Time Visit ID Attending ProviderD-[id number] 07/23/202045 --- Kai Dahl MD([id number]) EPI ID CSN Admitting Provider [id number] Pauline Hernandez MD([id number]) [facility] DISCHARGE SUMMARYPatient Name: Flora Mijares of : 1940 Age 79 yearsPrimary Physician: HELIO ZABALA MD PCP Gaovejzgs Date: 07/23/2020 [facility] Date[facility] Diagnoses:Principal Problem:Symptomatic bradycardia status post PPM placementActive [...] by mouth 2 (two) times a dayUmeclidinium Manderson (INCRUSE ELLIPTA) 62.5 MCG/INH AEPB Inhale 1 [...] mental status, speech normal, alert and oriented f1Kgvhllsduqp:Imaging:Chest x-ray post pacemaker placementIMPRESSION: No pneumothorax or [...] rce(s) Supporting Document(s) ID Date Data Source [id number] 07/26/2020 06:49:38 AM EST [facility] Name Value Range Interpretation Code Description Data Ximena rce(s) Supporting Document(s) EKG [facility] FZLSMx4cMbNLQtXpb2AlRlWfYGPyZS9bbtz6L3X5rWCaM7CygWJgl5szB9SjA9KuUMCaJAFPIB1MsSNw jb2 [file] cJbxSUS7Yc1RbnHsHFUkLMAAKo3Tq141LZHeVLAFOda+BbbftJTkoRnaSKDNMSEfSxETBMRMT5W= ID Date Data Source [id number] 07/26/2020 08:18:22 AM EST [facility] Name Value Range Interpretation Code Description Data Ximena rce(s) Supporting Document(s) SODIUM 138 mmol/L (136-145) [facility] POTASSIUM 3.8 mmol/L (3.6-5.2) [facility] CHLORIDE 101 mmol/L (100-108) [facility] CO2 28 mmol/L (22-31) [facility] ANION GAP 9 mmol/L (7-16) [facility] UREA NITROGEN 33 mg/dL (7-24) H [facility] CREATININE 0.81 mg/dL (0.60-1.00) [facility] BUN/CREAT RATIO 40.7 RATIO (10.0-20.0) H [facility] GLUCOSE 100 mg/dL (70-99) H [facility] CALCIUM 8.6 mg/dL (8.4-10.2) [facility] GFR >60 ml/min/1.73m2 (>59) [facility] GFR ( AMER) >60 ml/min/1.73m2 (>59) [facility] GFR INTERPRETATION [facility] --NORMAL KIDNEY FUNCTION OR MILD DISEASE - GFR >OR= 60CHRONIC KIDNEY DISEASE - GFR 15 - 59RENAL FAILURE - GFR <15 Est. GFR calculation based on the MDRDstudy equation, which assumes a steadystate for creatinine. Est. GFR should notbe used for medication dosing. ID Date Data Source [id number] 07/26/2020 07:58:44 AM EST [facility] Name Value Range Interpretation Code Description Data Ximena rce(s) Supporting Document(s) WBC 6.1 10*3/uL (4.1-11.0) [facility] [place] RBC 3.69 10*6/uL (4.00-5.40) L [facility] HGB 10.8 g/dL (12.0-16.0) L [facility] HCT 31.3 % (36.0-47.0) L [facility] PERFORMED AT [address] [place] [address] [place] [address] MCV 84.8 fL (80.0-95.0) [facility] MCH 29.2 pg (27.0-32.0) [facility] MCHC 34.4 g/dL (32.0-36.0) [facility] RDW 15.3 % (10.5-14.5) H [facility] PLT 209 10*3/uL (150-450) [facility] MPV 7.3 fL (7.1-10.7) [facility] ID Date Data Source [id number] 07/26/2020 05:49:43 AM EST [facility] Name Value Range Interpretation Code Description Data Ximena rce(s) Supporting Document(s) EKG [facility] PTFLKb1rPnSQRtPpf7GiMwOuOHSnPU1eqwl4F3B6yVEwS8EqjMAnl9caV2QvV7BeCIIxCRXIET5GgFFs jb2 [file] WaIHLRO6Skd3BkZTAqPJBPHi4+DsL8ZJZ6xOIjKha5ZwipEFkhXXZHFg== ID Date Data Source [id number] 07/25/2020 04:10:21 PM EDT [facility] Name Value Range Interpretation Code Description Data Ximena rce(s) Supporting Document(s) TROPONIN I <0.05 ng/mL (<0.05) [facility] [place] Less than 0.05: Myocardial injury unlike lyGreater than or equal to 0.05: Highly suggestive of myocardial injuryCorrelation with rise and/or fall ofserial troponins, clinical symptomsand ECG changes is necessary. ID Date Data Source [id number] 07/25/2020 09:52:26 AM EDT [facility]FORMATIONPatient MRN Name Date of Age Gend*PT [id number] Flora Mijares 1940 79 years F OBSPT Location Admission Date/Time Visit ID Attending ProviderD-[id number] 07/23/202045 --- Kai Dahl MD([id number]) EPI ID CSN Admitting Provider [id number] Pauline Hernandez MD([id number]) [facility] DISCHARGE SUMMARYPatient Name: Flora Mijares of : 1940 Age 79 yearsPrimary Physician: HELIO ZABALA MD PCP Kvtgrazpq Date: 07/23/2020 [facility] Date[facility] Diagnoses:Principal Problem:Symptomatic bradycardia status post PPM placementActive [...] by mouth 2 (two) times a dayUmeclidinium Manderson (INCRUSE ELLIPTA) 62.5 MCG/INH AEPB Inhale 1 [...] mental status, speech normal, alert and oriented e2Zncrpwcxhst:Imaging:Chest x-ray post pacemaker placementIMPRESSION: No pneumothorax or [...] rce(s) Supporting Document(s) ID Date Data Source [id number] 07/25/2020 09:44:12 AM EDT [facility] Name Value Range Interpretation Code Description Data Ixmena rce(s) Supporting Document(s) [facility] SWBCWk1dJcJIYzYqs2HaJrLdIHBnCR3bddg9H2E4xXUsY9DnvESgc4kgX9CeZ3FbLIHxNCATTR5YuMWu jb2 [file] Yagcfxgqxx+O8RFMTQe7MTlotnrR352vazeDMLTBcT GPN5zmXMZtT0s+iyiNPw3QbM+jhGHUSItyJp6VyMsBBBSrsQiDBJRpfI8kMVU93uThY2tyllRhnmsnHs FTSpmEtB5IQImFbnHi/cZNxk7FUGxkwbTDtkdtZHWPOQaZ0IdM0E+TKAmG7WXVjpeGpFEnX3hrOhUo+r VQkZRDObJihotaTSiS6IPsgrmYoUVTSFTcrnQxB/pl Ap2yMaCsU0IrzJtU7TYMqazdhWCagw1oMF5/Zk7ZPWYsQdeB1j1Z4qooH/BUakZvdHQ94EJobIL6cXru XjIhymJPE+geleWQMlFmI0msrp3mPtgNcr41dnAXJpqQVuYNulOPvSQhjAktpqliPtV4yCJtE+ndal/p 3UtTiOvISu+zvZdgtGkaoVzaCBl1aGKzUUj1XOqtCN u/zv+R1A/екатерина/ItXg+4ec8M+8M70f9KxQibCv7+NaYh9w0PLkUA4LuiCY9xWRd6df3I+2+v+xgrrJ3FV [file] 6C7429R0T9gyrD7R0/mQ9n847YY8+5c04W9PnCvclejOg9aah8//aqD7w3D9wxNJAZk1q5AKf/5V4d04 /ugJ7hhJ8I1FP22BzxA5OxwIl660qm+jPwf6c+D5Bp 4v/FaOeM6Q/hyQC/9qpH+PbdmtAk2bTcdJEQ6Nl/0DW95gx5+KAvoG1Wb0K6mR1eO9u2hIm4Pj3jL9T9 edb+sJNPwZxXP+sVeR1z/2qq6f/bLqNh81AQkgJ9baKc5m5qtD3nbkQ9+/M+6L7C7t7bmB+LTzzHNOO5 /v+9dbk32pcrG53w99cpC825LTuxlTOXvAX6RDyoev Ws+6H1nf6d63rfqwjn3rW3pz3c+j0zk1ze1Q5IcNqnScp1Om5K942KPtRUirepkZ2zsU/r8W9C64SFH0 nZaqRfyZGIQgf337wXgif9/l3U96KtC35d5x++0T/tUs/yp/i527Ea1IO/2r3Ec6/mmw6511ilf/z3Ho uy93+eoz/auV+2+network services project manager/nuy12+4IeIjX902dNdn66sFZ tgQqdSrynGAgia44+Xapz92LXZlf2/Leandro/R+zgY6/ZHx1drfUTP5zvvZY2Eaptw+FtQz87rbSWdpdKPV [file] Rg== ID Date Data Source [id number] 07/25/2020 09:24:57 AM EDT [facility] Name Value Range Interpretation Code Description Data Ximena rce(s) Supporting Document(s) SODIUM 138 mmol/L (136-145) [facility] POTASSIUM 4.0 mmol/L (3.6-5.2) [facility] CHLORIDE 101 mmol/L (100-108) [facility] CO2 28 mmol/L (22-31) [facility] ANION GAP 9 mmol/L (7-16) [facility] UREA NITROGEN 18 mg/dL (7-24) [facility] CREATININE 0.61 mg/dL (0.60-1.00) [facility] BUN/CREAT RATIO 29.5 RATIO (10.0-20.0) H [facility] GLUCOSE 85 mg/dL (70-99) [facility] CALCIUM 8.9 mg/dL (8.4-10.2) [facility] GFR >60 ml/min/1.73m2 (>59) [facility] GFR ( AMER) >60 ml/min/1.73m2 (>59) [facility] GFR INTERPRETATION [facility] --NORMAL KIDNEY FUNCTION OR MILD DISEASE - GFR >OR= 60CHRONIC KIDNEY DISEASE - GFR 15 - 59RENAL FAILURE - GFR <15 Est. GFR calculation based on the MDRDstudy equation, which assumes a steadystate for creatinine. Est. GFR should notbe used for medication dosing. ID Date Data Source [id number] 07/25/2020 09:03:05 AM EDT [facility] Name Value Range Interpretation Code Description Data Ximena rce(s) Supporting Document(s) WBC 7.4 10*3/uL (4.1-11.0) [facility] [place] RBC 4.04 10*6/uL (4.00-5.40) [facility] HGB 12.2 g/dL (12.0-16.0) [facility] HCT 35.2 % (36.0-47.0) L [facility] PERFORMED AT [address] [place] [address] [place] [address] MCV 87.3 fL (80.0-95.0) [facility] MCH 30.1 pg (27.0-32.0) [facility] MCHC 34.5 g/dL (32.0-36.0) [facility] RDW 15.1 % (10.5-14.5) [facility] PLT 218 10*3/uL (150-450) [facility] MPV 7.2 fL (7.1-10.7) [facility] ID Date Data Source [id number] 07/24/2020 09:36:55 PM EDT [facility]FORMATIONPatient MRN Name Date of Age Gend*PT [id number] Flora Mijares 1940 79 years F OBSPT Location Admission Date/Time Visit ID Attending ProviderD-5107 07/23/202045 --- Kai Dahl MD([id number]) EPI ID CSN Admitting Provider [id number] Pauline Hernandez MD([id number])INPATIENT EP CONSULT NOTEPatient Name: Flora Mijares of : 1940 Age: 79 yearsGender: female Primary Physician: HELIO ZABALA, MDDate of Referral: 07/24/2020 PCP [id number] PHYSICIAN: Facundo Lockett M.D.REASON FOR REFFERAL: SSSHISTORY OF PRESENT ILLNESS:Flora [...] sleep apnea) Palpitations 04/22/2019 Peripheral vascular disease 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 Pharmacologic SPECT 05/10/2019 No [...] 07/13/2016 Seizure Spirometry 09/2017 96% FVC, 77% BBB1EURR SURGICAL HISTORY:Past Surgical History:Procedure Laterality Date APPENDECTOMY [...] normalPERTINENT LABS:Results from last 7 daysLab Units 091620MNDYNRRXHP g/dL 12.6 13.3HEMATOCRIT % 36.0 39.5PLATELETS 10*3/uL 225 251SODIUM mmol/L 136 135*POTASSIUM mmol/L 4.0 3.9CHLORIDE mmol/L 100 99*CO2 mmol/L 27 27BUN mg/dL 19 20CREATININE mg/dL 0.61 0.65GLUCOSE mg/dL 86 81CALCIUM mg/dL 8.5 9.0DIAGNOSTIC DATA:I personally reviewedEKG: denise atrial rhythm, RBBBTele: low atrial rhythm, sinus bradyFINAL DIAGNOSES:1. Pre-Syncope2. SSS3. RBBB4. CABG x5 in . hypertension, hyperlipidemia,6. COPD on home I4Vvmdfjwsnc:he patient presents with symptomatic bradycardia, as evidenced [...] heart surgery, heart attack, stroke, oreven .Facundo Lockett M.D., FACC, FHRSClinical Cardiac Vncifyruoeyxnfkbm89/30/2020 3:56 PM Name Value Range Interpretation Code Description Data Ximena rce(s) Supporting Document(s) ID Date Data Source [id number] 07/24/2020 07:11:50 PM EDT [address] [id number] Name: FLORA MIJARESDOB: 2Sex: FOrdering Provider: Rene LOCKETTAuthorialka Prov: Rene LOCKETTReferrloretta Provider: Procedure Performed: XR CHEST PORTABLEExam Date: 07/24/2020 19:08MRN: [id number] Number: [id number] Class: OutpatientAccount #: [id number] for Exam: ppmTechnique: AP portable view obtained.Comparison: July 23, 2020Findings: Pacemaker right chest wall with leads extending to the right atrium and right ventricle.No pneumothorax or pleural effusion.Poor inflation with mild left basilar atelectasis.Sternal wires and surgical clips overlie the mediastinum.The bones are osteopenic.IMPRESSION: No pneumothorax or pleural effusion detected after pacemaker placement.Report electronically signed by: KELLI MORE On 07/24/2020 7:11 PMWorkstation ID: [id number] Name Value Range Interpretation Code Description Data Ximena rce(s) Supporting Document(s) ID Date Data Source [id number] 07/24/2020 06:12:52 PM EDT [facility] Name Value Range Interpretation Code Description Data Ximena rce(s) Supporting Document(s) &PDF [facility] HQTEIz6wUpICAsKj05/BCZoyFNKlc4WxZZqyXFj4TIsfDUYrW1FolYhrFPxVRoeUJS8iGUFVQM6cVLJb waW [file] f5I10ivIHaHRoeEP4BXWO+Yvan+Ek1PDJNlZNUePXHnBqBaCYRUXqFaM3VfP7VWj2CiB0QfKF01eBmqbg ZiGOslXO9BAB6oLWPvPZGMCX1MiEItxR5zucI2FRNu TLOOPsNwL22hlZFkAHCkFPN9DJIaHl7LEZSyK4JkguErqXypdlAvRGJdSRQLRX7PBQtaedVqsZFsaBwu LV15fIfiBH7QXw4VAjEjRS4fyo7EtZKmVt4VPYU3TF2WNSNxXNYnGMVmVPB9PNMwKrHtHGbyIZZnEPRl YTD7UHPpUDTkUP6RZrUcFFMuQIW9LCufXNCoQBSocg 6OKTZvSNU6XMY0NXNtDJMgKZFgKNptKFNrAYQnZJq0TAHvMOMrQU0WGzApLJZkREM0MFVbGXTiXCAemh 1HYSUjQMB5BCd3VMSyGBSeAGYpZDoiJPGtUSH1FXOcHBRsPRYeGS9ALdUoRKOgWGhxRYYnVDNeKJLghl 5TCUCuUGP4VSX8YIEgFVHfCPHvZNvhWRUaTOT9GyO9 AJKwLEZlSM4PCoEnJCJyYEa9ZRXlCWWfHXQpsn9RKHJuCGF9OMf8ChRuXKVwMIKwIOkjCYGjXNCbJZWc RRTzDCUtZB1KFvGkRMKmPAMqMwOzIVCmYWJdkw8PAGXyJIF8EMZ4HAPsDJLiRESqASlrIWCdRSVtFeV9 VJEnFVZqYQ9PDpNmVPHpEKZ3IzHmRLEdTPUjax0LAQ QnZIX9ORb0LeSuJDEpNBTiIEbqFZRxIVChLEtqVCKwLVZdBP5EWbNbDNJnHJB0AMezACVuOOPtyb9MOL TjJGTlNdQ8IRUoMUSdLBFqZBmhQXIjBSV7Eej5XJSrACMsHK6VZyCgYLJrVKzcCtYcRMBtITItga3QYR JjGHXqADRaHOFdEESzHBVyKFyiKAKuRNAnGQq4EHNs GGJjML1YBxHrUXWsYMKuCUQmIJSfFJIxhh4YPXVyYYDeBVG2RLQhIYUdAMHzRXnzFXQlOFFfQSB6FEHq ZJYhMJ6ZEhHeRRGqNSW4MsyaPIPzYHHnbx6VPOYoVRClYNmcFpPjFTWzPUUxRMkjKUSmJXQuRUD0GXIm SHKjFB0ISwOvHIZoSpW9AXbmURBsSSUkvx7CJNXoOM BkTUAgZnSpQBPuKQKtDBwwKZHkBPY7XjK4PWPvXDHoZS3HVdHuAVZgIsO8FJVtCUKcIGIeij5FENBlQX WaHDc8UWEhQOVcHRQlAVfdXHGaSFL3HZosWWBeLDHnIT5POxWiEPPaTvFxQMacHYSpPZYmjw6CQQHoWT RvMoBcXMYhHYOdMXDdRJiiDFQqPLY0YjsfBWUgXSLs WZ6ZOvHcVTVtQzf7WSNrLPNxLAWaeh1KTIDxVIO6LkApPKWbVCOeMNRxJWdtXTDtLTE8EMw3ZHSfVOGh QB3DWvWwMCEkRXdeTUtiJZTtSVXatb4GYUNwEXH0ETlgFWFnSYAxFVLjOKrpDFBjIPO8KVfxJTUgTEWf FO7MMhNiPXXqXWXiYSrdLBNyBRZwgx2UqYKxgVqhmb 3RLNeXAm0PfWagNTR0ZOclOt4akPG9UmVlXWTQEd4IakSjCDTgDLUVOVtfSORdBNPtFbI6UFVvBaGiNT KcGQC5B6L5NovfIBSyFqZoWMc3NaV3ACR1VFs6S4EuNuL5LvH7DlY1BUXhPSObAzZxWlNiPPD+IF0gDQ o+Lu1Mc4NovoG2wtQfVUs9OQA6HR8DXFRHJ6BQYm== ID Date Data Source [id number] 07/24/2020 09:26:04 AM EDT [facility] NT INFORMATIONPatient MRN Name Date of Age Gend*PT [id number] Flora Mijares 1940 79 years F OBSPT Location Admission Date/Time Visit ID Attending [id number] 07/23/202045 --- Kai Dahl MD([id number]) EPI ID CSN Admitting Provider [id number] Pauline Hernandez MD([id number])Cardiology History and PhysicalName: Flora Mijares Gender: femaleDate of : 1940 Age: 79 yearsDate/Time of Admit: 07/23/2020 8:46 PM Code Status: DNR (Do NOT attempt CPR)Primary Care ProviderReferring Physician: Colton TANG, [facility] Complaint: Chest painReason for consult: BradycardiaHPI: 79-year-old [...] catheterization 10/2014 LV EF 55%, inferior hypokinesis.PAP 46/. PCWP 14. 30% LM. 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 Perfusion study shows infarction. Cannotrule out that small fixed defect in inferior basal is d/t attenuation. LEVF 58%.Suggestive of RV enlargement and septal wall motion abnormality. These suggestpresence of pulmonary HTN. 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 [...] file Gets together: Not on file Attends episcop[employer] service: Not on file Active member of [...] mouth 2 (two) times a day Umeclidinium [place] (INCRUSE ELLIPTA) 62.5 MCG/INH AEPB Inhale 1 [...] clubbing and no edema.DiagnosticsABGs:Lab ResultsComponent Value Date H4SFEKNT VENT 03/23/2019 POCSOURCE ARTERIAL 03/23/2019 POCFIO2 40 [...] results found for: POCTROPTSH:No results found for: M1JBKLKHQ: marked sinus bradycardia, RBBBAssessment and PlanPrincipal Problem: Chest painActive Problems: Pulmonary HTN COPD (chronic obstructive pulmonary disease) Neuropathy TODD (obstructive sleep apnea) Pulmonary hypertension Gastroesophageal reflux disease Cardiomegaly Bradycardia History of stent insertion of renal artery RBBB Supplemental oxygen dependent Seizure Xwycvxsejsgkmp65-zzau-jua lady with sick sinus syndrome new right [...] rce(s) Supporting Document(s) ID Date Data Source [id number] 07/24/2020 08:20:37 AM EDT [facility] Name Value Range Interpretation Code Description Data Ximena rce(s) Supporting Document(s) EKG [facility] YXIFTc9qTiQAEuNsk5UbCpPmNBUaVE9uqol6F6H4sZPbD3WazWNzn2bnS9BzL3GjSBFgEHLOCG6DrFVj jb2 [file] 2UcHrxOnO06v8A5cS1HBFqkPC9Okh2nfO+0v8d+ESTATE CONSERVATOR [file] icF8anMgIfCkLzA2AsQgXE7I ID Date Data Source [id number] 07/24/2020 07:47:42 AM [place]T [place], [place] [address]Patient Name: FLORA ALVINB: 2Sex: FOrdering Provider: SHERI Soni Prov: SHERI Owens Provider: Procedure Performed: XR CHEST PORTABLEExam Date: 07/23/2020 22:03MRN: [id number] Number: [id number] Class: OutpatientAccount #: [id number] for Exam: chest painTechnique: AP portable view obtained.Comparison: March 23, 2019Findings: Lungs are clear. Patient is status post median sternotomy. There are no pleural effusions. Mediastinal contours are unremarkable.IMPRESSION: No acute disease in the chest.Report electronically signed by: MARISA MCCLENDON On 07/24/2020 7:47 AMWorkstation ID: [id number] Name Value Range Interpretation Code Description Data Ximena rce(s) Supporting Document(s) ID Date Data Source [id number] 07/24/2020 06:05:39 AM EDT [facility] Name Value Range Interpretation Code Description Data Ximena rce(s) Supporting Document(s) SODIUM 136 mmol/L (136-145) [facility] POTASSIUM 4.0 mmol/L (3.6-5.2) [facility] CHLORIDE 100 mmol/L (100-108) [facility] CO2 27 mmol/L (22-31) [facility] ANION GAP 9 mmol/L (7-16) [facility] UREA NITROGEN 19 mg/dL (7-24) [facility] CREATININE 0.61 mg/dL (0.60-1.00) [facility] BUN/CREAT RATIO 31.1 RATIO (10.0-20.0) H [facility] GLUCOSE 86 mg/dL (70-99) [facility] CALCIUM 8.5 mg/dL (8.4-10.2) [facility] GFR >60 ml/min/1.73m2 (>59) [facility] GFR ( AMER) >60 ml/min/1.73m2 (>59) [facility] GFR INTERPRETATION [facility] --NORMAL KIDNEY FUNCTION OR MILD DISEASE - GFR >OR= 60CHRONIC KIDNEY DISEASE - GFR 15 - 59RENAL FAILURE - GFR <15 Est. GFR calculation based on the MDRDstudy equation, which assumes a steadystate for creatinine. Est. GFR should notbe used for medication dosing. ID Date Data Source [id number] 07/24/2020 05:31:30 AM EDT [facility] Name Value Range Interpretation Code Description Data Ximena rce(s) Supporting Document(s) WBC 6.1 10*3/uL (4.1-11.0) Lab [facility] [place] RBC 4.24 10*6/uL (4.00-5.40) [facility] HGB 12.6 g/dL (12.0-16.0) [facility] HCT 36.0 % (36.0-47.0) [facility] PERFORMED AT [address] [place] [address] [facility] [address] MCV 84.9 fL (80.0-95.0) [facility] MCH 29.8 pg (27.0-32.0) [facility] MCHC 35.1 g/dL (32.0-36.0) [facility] RDW 15.1 % (10.5-14.5) H [facility] PLT 225 10*3/uL (150-450) [facility] MPV 7.1 fL (7.1-10.7) [facility] ID Date Data Source [id number] 07/24/2020 01:36:13 AM EDT [facility] INFORMATIONPatient MRN Name Date of Age Gend*PT [id number] Flora Mijares 1940 79 years F OBSPT Location Admission Date/Time Visit ID Attending [id number] 07/23/202045 --- Kai Dahl MD([id number]) EPI ID CSN Admitting Provider [id number] Pauline Hernandez MD([id number]) Attestation signed by Pauline Hernandez MD at 07/24/2020 1:36 AMPlan of care discussed. Agree with H&P by Sheri Gama NP.Signature: FAMILIA Osullivanate: July 24, 2020Time: 1:35 AM ADMISSION HISTORY AND PHYSICALName: Flora Mijares Gender: femaleDate of : 1940 Age: 79 yearsDate/Time of Admit: 07/23/2020 8:46 PM Code Status: Full CodePrimary Care Provider / Referring Physician: ALBERT ALVARES NPInformant:Current HistoryChief Complaint: Patient transfers from [facility] for evaluation of chestpain in the setting of known CAD and multiple PCI including CABG in 2001HPI:This patient is a 79 years female with medical history of CAD (s/p multiple PCIincluding: Last [facility] October 2017 which revealed patent ESPINOSA to LAD and patentstents in the right and left circumflex and LAD; she is status post CABGX5 [id number]). Echocardiogram May 2019 showed normal LV size with mild LVH andpreserved LV systolic function. Grade 1 diastolic dysfunction, mild pulmonaryhypertension, and severe left atrial enlargement. She also has a history ofhypertension, hyperlipidemia, COPD/TODD//nocturnal oxygen, GERD and duodenalulcer bleeding s/p transfusion, obesity. [facility] of [facility]Patient reports that during [...] [facility] was as follows:Chest x-ray: No focal cons [...] in the past. 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 Perfusion study shows infarction. Cannotrule out that small fixed defect in inferior basal is d/t attenuation. LEVF 58%.Suggestive of RV enlargement and septal wall motion abnormality. These suggestpresence of pulmonary HTN. 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 [facility] unrevealing [facility].Chest painPresently offers no anginal complaint sEKG on admission is noted to marked sinus bradycardia with RBBB which appears gagan new as compared to prior EKG from 2018, ?possibly a wondering atrialpacemakerShe offers no anginal complaintsTroponin was negative in [place] and repeat here is negativeHer last pharmacologic [...] RepathaCoronary artery diseases/p multiple PCI including: Last [facility] October 2017 which revealed patent ESPINOSA toLAD [...] rce(s) Supporting Document(s) ID Date Data Source [id number] 07/24/2020 12:34:00 AM EDT [facility] Patient: FLORA MIJARES Observation Re [facility].VisitID: [id number] [place] [address] [phone], FRegistration Date/Time: 07/23/2020 15:41 Weight:74.8 kg (S). Height/Length:61 inches (S). BMI:31.2 FAMILY HISTORYFather: Cancer, Hypertension. Mother: Diabetes Mellitus. (Electronically signed by Ivory Lozada, P.AJosé Miguel 07/23/2020 19:20) Name Value Range Interpretation Code Description Data Ximena rce(s) Supporting Document(s) ID Date Data Source [id number] 07/24/2020 12:59:25 AM EDT [facility] Name Value Range Interpretation Code Description Data Ximena rce(s) Supporting Document(s) TROPONIN I <0.05 ng/mL (<0.05) [facility] [place] Less than 0.05: Myocardial injury unlike lyGreater than or equal to 0.05: Highly suggestive of myocardial injuryCorrelation with rise and/or fall ofserial troponins, clinical symptomsand ECG changes is necessary. ID Date Data Source [id number] 07/23/2020 10:13:07 PM EDT [facility] Name Value Range Interpretation Code Description Data Ximena rce(s) Supporting Document(s) HEMOGLOBIN A1C @ 5.9 % (4.0-6.0) [facility] Performed using Siemens [place] immunoassa y.Care must be taken when interpreting [id number] in patients with a hemoglobin variantor decreased erythrocyte lifespan. Values 5.7 - 6.4% suggest prediabetes.Values >=6.5% are diagnostic for diabetes.REFERENCE: DIABETES CARE 2018: 41(S13-S27).PERFORMED AT [address] [place] [address] EST AVERAGE GLUCOSE 123 mg/dL [facility] ID Date Data Source [id number] 07/23/2020 11:27:32 PM EDT [facility] Name Value Range Interpretation Code Description Data Ximena rce(s) Supporting Document(s) CHOLESTEROL @ 114 mg/dL (0-200) [facility] TRIGLYCERIDE @ 94 mg/dL (30-200) [facility] HDL CHOLESTEROL @ 46 mg/dL (>40) [facility] PER NCEP ATP III GUIDELINES:RESULTS LOWE R THAN 40 MG/DL ARE SUGGESTIVEOF INCREASED RISK FOR CORONARY ARTERYDISEASE. RESULTS > OR = TO 60 MG/DL ARECONSIDERED A NEGATIVE RISK FACTOR. CHOL/HDL RATIO 2.5 RATIO [facility] INTERPRETATION OF CHOL-HDL RATIO CHD RISK FEMALE MALEVERY HIGH >8.3 >14.3HIGH 5.6- 8.3 6.7- 14.3AVERAGE 3.7- 5.6 4.0- 6.7BELOW AVERAGE 2.5- 3.7 2.7- 4.0PROTECTED <2.5 <2.7 LDL CHOL (CALC) 49 mg/dL (<130) [facility] PER NCEP ATP III GUIDELINES: OPTIMAL < 100 NEAR OPTIMAL 100 - 129BORDERLINE HIGH 130 - 159 HIGH 160 - 189 VERY HIGH > 189 ID Date Data Source [id number] 07/23/2020 10:41:28 PM EDT Lab [facility] SPEC EXP DATE 07/26/2020PATI ENT ABO/Rh O NEGATIVEANTIBODY SCREEN NEGATIVETESTING SITE PERFORMED AT [address] [place] [address] Name Value Range Interpretation Code Description Data Ximena rce(s) Supporting Document(s) TYPE AND SCREEN [facility] PATIENT ABO/Rh O NEGATIVE ID Date Data Source [id number] 07/23/2020 10:08:32 PM EDT [facility] Name Value Range Interpretation Code Description Data Ximena rce(s) Supporting Document(s) TSH,ULTRASENSITIVE @ 1.605 mIU/L (0.360-4.170) [facility] PERFORMED AT [address] [place] [address] [place] [address] ID Date Data Source [id number] 07/23/2020 10:08:32 PM EDT [facility] Name Value Range Interpretation Code Description Data Ximena rce(s) Supporting Document(s) NT PRO BNP 399 pg/mL (0-450) [facility] ID Date Data Source [id number] 07/23/2020 10:08:32 PM EDT [facility] Name Value Range Interpretation Code Description Data Ximena rce(s) Supporting Document(s) TROPONIN I <0.05 ng/mL (<0.05) [facility] Less than 0.05: Myocardial injury unlike lyGreater than or equal to 0.05: Highly suggestive of myocardial injuryCorrelation with rise and/or fall ofserial troponins, clinical symptomsand ECG changes is necessary. ID Date Data Source [id number] 07/23/2020 10:08:32 PM EDT [facility] Name Value Range Interpretation Code Description Data Ximena rce(s) Supporting Document(s) SODIUM 135 mmol/L (136-145) L [facility] POTASSIUM 3.9 mmol/L (3.6-5.2) [facility] CHLORIDE 99 mmol/L (100-108) L [facility] CO2 27 mmol/L (22-31) [facility] ANION GAP 9 mmol/L (7-16) [facility] UREA NITROGEN 20 mg/dL (7-24) [facility] CREATININE 0.65 mg/dL (0.60-1.00) [facility] BUN/CREAT RATIO 30.8 RATIO (10.0-20.0) H [facility] GLUCOSE 81 mg/dL (70-99) [facility] CALCIUM 9.0 mg/dL (8.4-10.2) [facility] TOTAL PROTEIN 7.0 g/dL (6.4-8.2) [facility] ALBUMIN 3.9 g/dL (3.2-4.5) [facility] GLOBULIN 3.1 g/dL (2.7-4.3) [facility] ALB/GLOB RATIO 1.3 RATIO [facility] ALKALINE PHOSPHATASE 70 U/L (45-117) [facility] BILIRUBIN,TOTAL 0.5 mg/dL (0.0-1.0) [facility] PLEASE NOTE:Total bilirubin results may be falselyelevated in patients taking Eltrombopag. AST (SGOT) 23 U/L (11-39) [facility] ALT (SGPT) 31 U/L (12-78) [facility] GFR >60 ml/min/1.73m2 (>59) [facility] GFR ( AMER) >60 ml/min/1.73m2 (>59) [facility] GFR INTERPRETATION [facility] --NORMAL KIDNEY FUNCTION OR MILD DISEASE - GFR >OR= 60CHRONIC KIDNEY DISEASE - GFR 15 - 59RENAL FAILURE - GFR <15 Est. GFR calculation based on the MDRDstudy equation, which assumes a steadystate for creatinine. Est. GFR should notbe used for medication dosing. ID Date Data Source [id number] 07/23/2020 09:57:53 PM EDT [facility] Name Value Range Interpretation Code Description Data Ximena rce(s) Supporting Document(s) MAGNESIUM 2.1 mg/dL (1.7-2.4) [facility] BENITO ID Date Data Source [id number] 07/23/2020 09:45:21 PM EDT [facility] Name Value Range Interpretation Code Description Data Ximena rce(s) Supporting Document(s) APTT 24.6 s (22.0-34.3) [facility] ID Date Data Source [id number] 07/23/2020 09:45:21 PM EDT [facility] Name Value Range Interpretation Code Description Data Ximena rce(s) Supporting Document(s) PT 10.5 s (9.2-11.9) [facility] INR 1.00 [facility] SUGGESTED THERAPEUTIC RANGES USING INR F ORSTABILIZED ANTICOAGULATED PATIENTS:STANDARD DOSE THERAPY INR 2.0-3.0 DVT, PE, PREVENT DVT OR EMBOLISMHIGH DOSE THERAPY INR 2.5-3.5 PREVENT EMBOLISM FROM MECHANICAL HEART VALVE ID Date Data Source [id number] 07/23/2020 09:33:10 PM EDT [facility] Name Value Range Interpretation Code Description Data Ximena rce(s) Supporting Document(s) WBC 7.3 10*3/uL (4.1-11.0) [facility] [place] RBC 4.56 10*6/uL (4.00-5.40) [facility] HGB 13.3 g/dL (12.0-16.0) [facility] HCT 39.5 % (36.0-47.0) [facility] PERFORMED AT [address] [place] [address] [place] [address] MCV 86.6 fL (80.0-95.0) [facility] MCH 29.3 pg (27.0-32.0) [facility] MCHC 33.8 g/dL (32.0-36.0) [facility] RDW 15.3 % (10.5-14.5) H [facility] PLT 251 10*3/uL (150-450) [facility] MPV 6.9 fL (7.1-10.7) L [facility] NEUT % 67.9 % (35.0-75.0) [facility] LYMPH % 19.2 % (16.0-52.0) [facility] MONO % 10.9 % (0.0-8.0) H [facility] EOS % 1.2 % (0.0-5.0) [facility] BASO % 0.8 % (0.0-4.0) [facility] NEUT # 4.9 10*3/uL (1.8-7.7) [facility] LYMPH # 1.4 10*3/uL (1.2-4.8) [facility] MONO # 0.8 10*3/uL (0.0-0.8) [facility] Eosinophils [#/volume] in Blood by Automated count 0.1 10*3/uL (0.0-0 .5) [facility] BASO # 0.1 10*3/uL (0.0-0.2) [facility] ID Date Data Source [id number] 07/23/2020 05:01:00 PM EDT [facility] [...] rce(s) Supporting Document(s) ID Date Data Source [id number] 07/23/2020 05:00:00 PM EDT [facility] Name Value Range Interpretation Code Description Data Ximena rce(s) Supporting Document(s) COVID-19 [facility] This lab was ordered by [facility] and reported by [facility] Laboratory. ID Date Data Source [id number] 07/23/2020 05:45:00 PM EDT [facility] TSYSORDER [id number] Name Value Range Interpretation Code Description Data Ximena rce(s) Supporting Document(s) COVID-19 NEGATIVE NEGATIVE [facility] Negative results should be treated as pr [...] are for the indentification of SARS-CoV-2 RNA. [id number] RNA is generally detectable in respiratorysamples during the actue phase of infection. ID Date Data Source [id number] 07/23/2020 04:40:00 PM EDT [facility] TSYSORDER [id number] Name Value Range Interpretation Code Description Data Ximena rce(s) Supporting Document(s) TROPONIN I < 0.017 ng/mL 0.0-0.056 [facility] ID Date Data Source [id number] 07/23/2020 04:40:00 PM EDT [facility] TSYSORDER [id number] Name Value Range Interpretation Code Description Data Ximena rce(s) Supporting Document(s) LIPASE 82 U/L 73-393 [facility] ID Date Data Source [id number] 07/23/2020 04:40:00 PM EDT [facility] TSYSORDER [id number] Name Value Range Interpretation Code Description Data Ximena rce(s) Supporting Document(s) GLUCOSE 103 mg/dL 74-106 [facility] BLOOD UREA NITROGEN 21 mg/dL 7-18 H [facility] CREATININE 0.8 mg/dL 0.6-1.0 [facility] SODIUM 133 mmol/L 136-145 L [facility] POTASSIUM 4.3 mmol/L 3.5-5.1 [facility] CHLORIDE 96 mmol/L 98-107 L [facility] CO2 29 mmol/L 21-32 [facility] CALCIUM 9.1 mg/dL 8.5-10.1 [facility] ANION GAP 8.0 mmol/L 5-12 [facility] GLOMERULAR FILTRATION RATE 70 mL/min [facility] GFR IS CALCULATED IN mL/min/1.73m2 AGNIESZKA L FUNCTION: >90MILDLY DECREASED: 60-89MILDY TO MODERATELY DECREASED: 45-59 MODERATELY TO SEVERELY DECREASED: 30-44SEVERELY DECREASED: 15-29RENAL FAILURE: <15 AST 29 U/L 15-37 [facility] ALT 34 U/L 12-78 [facility] ALKALINE PHOSPHATASE 77 U/L 46-116 [facility] p[facility] TOTAL BILIRUBIN 0.4 mg/dL 0.2-1.0 [facility] TOTAL PROTEIN 7.6 g/dl 6.4-8.2 [facility] ALBUMIN 4.0 gm/dL 3.4-5.0 [facility] ID Date Data Source [id number] 07/23/2020 04:34:00 PM EDT [facility] TSYSORDER [id number] Name Value Range Interpretation Code Description Data Ximena rce(s) Supporting Document(s) PARTIAL THROMBOPLASTIN TIME 24.2 SECONDS 21.2-27.3 [facility] ID Date Data Source [id number] 07/23/2020 04:34:00 PM EDT [facility] TSYSORDER [id number] Name Value Range Interpretation Code Description Data Ximena rce(s) Supporting Document(s) PROTHROMBIN TIME (PATIENT) 9.8 SECONDS 9.1-11.6 [facility] INR 0.94 0.87-1.06 [facility] ID Date Data Source [id number] 07/23/2020 04:25:00 PM EDT [facility] TSYSORDER [id number] Name Value Range Interpretation Code Description Data Ximena rce(s) Supporting Document(s) WHITE BLOOD COUNT 7.2 K/mm3 4.0-10.0 [facility] al RED BLOOD COUNT 4.64 M/mm3 4.00-5.50 [facility] HEMOGLOBIN 13.2 gm/dL 12.0-16.0 [facility] HEMATOCRIT 40.1 % 36.0-48.8 [facility] MEAN CELL VOLUME 86.4 fl 80-96 [facility] MEAN CORPUSCULAR HEMOGLOBIN 28.4 pg 27.0-31.0 [facility] MEAN CORPUSCULAR HGB CONC 32.9 g/dl 32.0-36.0 [facility] RED CELL DISTRIBUTION WIDTH 14.8 % 10.0-14.5 H [facility] PLATELET COUNT 264 K/mm3 172-450 [facility] MEAN PLATELET VOLUME 9.4 fl 9.0-13.0 [facility]ital GRAN % 68.1 % 50-80.0 [facility] IG% 0.6 % 0.0-0.2 H [facility] LYMPH % 19.3 % 25.0-50.0 L [facility] MONO % 10.6 % 2.0-10.0 H [facility] EOS % 1.1 % 0-5.0 [facility] BASO % 0.3 % 0.0-2.0 [facility] GRAN # 4.9 K/mm3 2.0-8.00 [facility] IG# 0.0 K/mm3 0.0-0.2 [facility] LYMPH # 1.4 K/mm3 1.0-5.0 [facility] MONO # 0.8 K/mm3 0.10-1.20 [facility] EOS # 0.1 K/mm3 0.0-0.5 [facility] BASO # 0.0 K/mm3 0.0-0.2 [facility] Procedure Social History Code Duration Value Status Description Data Source(s ) Smoking 08/26/2021 12:00:00 AM EST Former Smoker completed Former Smoker eCW1 ([facility]) Smoking 08/26/2021 12:00:00 AM EST Former Smoker completed Former Smoker eCW1 ([facility]) Smoking 08/26/2021 12:00:00 AM EST Former Smoker completed Former Smoker eCW1 ([facility]) Smoking 08/12/2021 12:00:00 AM EST Former Smoker completed Former Smoker eCW1 ([facility]) Smoking 08/12/2021 12:00:00 AM EST Former Smoker completed Former Smoker eCW1 ([facility]) Smoking 05/25/2021 12:00:00 AM EDT Former Smoker completed Former Smoker eCW1 ([facility]) Smoking 05/25/2021 12:00:00 AM EDT Former Smoker completed Former Smoker eCW1 ([facility]) Smoking 05/25/2021 12:00:00 AM EDT Former Smoker completed Former Smoker eCW1 ([facility]) Smoking 05/25/2021 12:00:00 AM EDT Former Smoker completed Former Smoker eCW1 ([facility]) Smoking 05/25/2021 12:00:00 AM EDT Former Smoker completed Former Smoker eCW1 ([facility]) Smoking 05/25/2021 12:00:00 AM EDT Former Smoker completed Former Smoker eCW1 ([facility]) Smoking 05/25/2021 12:00:00 AM EDT Former Smoker completed Former Smoker eCW1 ([facility]) Smoking 05/25/2021 12:00:00 AM EDT Former Smoker completed Former Smoker eCW1 ([facility]) Smoking 05/25/2021 12:00:00 AM EDT Former Smoker completed Former Smoker eCW1 ([facility]) Smoking 05/11/2021 12:00:00 AM EDT Former Smoker completed Former Smoker eCW1 ([facility]) Smoking 05/11/2021 12:00:00 AM EDT Former Smoker completed Former Smoker eCW1 ([facility]) Smoking 05/11/2021 12:00:00 AM EDT Former Smoker completed Former Smoker eCW1 ([facility]) Smoking 05/10/2021 12:00:00 AM EDT Former Smoker completed Former Smoker eCW1 ([facility]) Smoking 04/08/2021 12:00:00 AM EDT Former Smoker completed Former Smoker eCW1 ([facility]) Smoking 04/08/2021 12:00:00 AM EDT Former Smoker completed Former Smoker eCW1 ([facility]) Smoking 04/08/2021 12:00:00 AM EDT Former Smoker completed Former Smoker eCW1 ([facility]) Smoking 04/08/2021 12:00:00 AM EDT Former Smoker completed Former Smoker eCW1 ([facility]) Smoking 04/08/2021 12:00:00 AM EDT Former Smoker completed Former Smoker eCW1 ([facility]) Smoking 04/08/2021 12:00:00 AM EDT Former Smoker completed Former Smoker eCW1 ([facility]) Alcohol intake 04/01/2021 12:00:00 AM EDT Current non-d maxx of alcohol (finding) completed Current non-drinker of alcohol (finding) [facility] Smoking 03/25/2021 12:00:00 AM EDT Former Smoker completed Former Smoker eCW1 ([facility]) Smoking 03/25/2021 12:00:00 AM EDT Former Smoker completed Former Smoker eCW1 ([facility]) Smoking 03/25/2021 12:00:00 AM EDT Former Smoker completed Former Smoker eCW1 ([facility]) Smoking 02/26/2021 12:00:00 AM EDT Former Smoker completed Former Smoker eCW1 ([facility]) Smoking 02/26/2021 12:00:00 AM EDT Former Smoker completed Former Smoker eCW1 ([facility]) Smoking 02/26/2021 12:00:00 AM EDT Former Smoker completed Former Smoker eCW1 ([facility]) Smoking 02/26/2021 12:00:00 AM EDT Former Smoker completed Former Smoker eCW1 ([facility]) Smoking 02/16/2021 12:00:00 AM EDT Former Smoker completed Former Smoker eCW1 ([facility]) Smoking 02/16/2021 12:00:00 AM EDT Former Smoker completed Former Smoker eCW1 ([facility]) Smoking 01/07/2021 12:00:00 AM EDT Former Smoker completed Former Smoker eCW1 ([facility]) Smoking 01/07/2021 12:00:00 AM EDT Former Smoker completed Former Smoker eCW1 ([facility]) Smoking 01/07/2021 12:00:00 AM EDT Former Smoker completed Former Smoker eCW1 ([facility]) Smoking 01/07/2021 12:00:00 AM EDT Former Smoker completed Former Smoker eCW1 ([facility]) Smoking 01/07/2021 12:00:00 AM EDT Former Smoker completed Former Smoker eCW1 ([facility]) Smoking 12/30/2020 12:00:00 AM EDT Former Smoker completed Former Smoker eCW1 ([facility]) Smoking 09/29/2020 12:00:00 AM EST Former Smoker completed Former Smoker eCW1 ([facility]) Smoking 09/29/2020 12:00:00 AM EST Former Smoker completed Former Smoker eCW1 ([facility]) Smoking 09/29/2020 12:00:00 AM EST Former Smoker completed Former Smoker eCW1 ([facility]) Smoking 09/29/2020 12:00:00 AM EST Former Smoker completed Former Smoker eCW1 ([facility]) Smoking 09/29/2020 12:00:00 AM EST Former Smoker completed Former Smoker eCW1 ([facility]) Smoking 09/29/2020 12:00:00 AM EST Former Smoker completed Former Smoker eCW1 ([facility]) Smoking 09/29/2020 12:00:00 AM EST Former Smoker completed Former Smoker eCW1 ([facility]) Smoking 09/29/2020 12:00:00 AM EST Former Smoker completed Former Smoker eCW1 ([facility]) Smoking 09/29/2020 12:00:00 AM EST Former Smoker completed Former Smoker eCW1 ([facility]) Smoking 07/30/2020 12:00:00 AM EST Former Smoker completed Former Smoker eCW1 ([facility]) Smoking 07/30/2020 12:00:00 AM EST Former Smoker completed Former Smoker eCW1 ([facility]) Smoking 07/30/2020 12:00:00 AM EST Former Smoker completed Former Smoker eCW1 ([facility]) Smoking 07/30/2020 12:00:00 AM EST Former Smoker completed Former Smoker eCW1 ([facility]) Smoking 07/30/2020 12:00:00 AM EST Former Smoker completed Former Smoker eCW1 ([facility]) Smoking 07/30/2020 12:00:00 AM EST Former Smoker completed Former Smoker eCW1 ([facility]) Smoking 07/30/2020 12:00:00 AM EST Former Smoker completed Former Smoker eCW1 ([facility]) Alcohol intake 07/28/2020 12:00:00 AM EST No completed [facility] Cigarette pack-years 07/28/2020 12:00:00 AM EST UNK completed [facility] Cigarettes smoked current (pack per day) - Reported 07/28/20 20 12:00:00 AM EST UNK completed [facility] Smoking 07/28/2020 12:00:00 AM EST Former smoker completed Former smoker [facility] Vital Signs ID Date Data Source UNK Name Value Range Interpretation Code Description Data Source(s) Body weight 149 [lb_av] 149 [lb_av] eCW1 ([facility]) Body height 61 [in_i] 61 [in_i] eCW1 ([facility]) Body mass index (BMI) [Ratio] 28.15 kg/m2 28.15 kg/m2 eCW1 ([facility]) Heart rate 65 /min 65 /min [facility]1 [facility]) Respiratory rate 21 /min 21 /min eCW1 ([facility]) Body temperature 98 [degF] 98 [degF] eCW1 ([facility]) Systolic blood pressure 186 mm[Hg] 186 mm[Hg] e CW1 ([facility]) Diastolic blood pressure 80 mm[Hg] 80 mm[Hg] eCW1 ([facility]) Body weight 151.4 [lb_av] 151.4 [lb_av] eCW1 ([facility]) Body weight 68.67 kg 68.67 kg eCW1 ([facility]) Body height 61 [in_i] 61 [in_i] eCW1 ([facility]) Body mass index (BMI) [Ratio] 28.60 kg/m2 28.60 kg/m2 eCW1 ([facility]) Heart rate 70 /min 70 /min eCW1 ([facility] Respiratory rate 18 /min 18 /min eCW1 ([facility]) Body temperature 99.0 [degF] 99.0 [degF] eCW1 ( [facility]) Systolic blood pressure 142 mm[Hg] 142 mm[Hg] e CW1 ([facility]) Diastolic blood pressure 66 mm[Hg] 66 mm[Hg] eCW1 ([facility]) Body weight 145 [lb_av] 145 [lb_av] eCW1 ([facility]) Body weight 65.77 kg 65.77 kg eCW1 ([facility]) Body height 61 [in_i] 61 [in_i] eCW1 ([facility]) Body mass index (BMI) [Ratio] 27.39 kg/m2 27.39 kg/m2 eCW1 ([facility]) Heart rate 65 /min 65 /min eCW1 ([facility]) Respiratory rate 18 /min 18 /min eCW1 ([facility]) Body temperature 98.6 [degF] 98.6 [degF] eCW1 ( [facility]) Systolic blood pressure 155 mm[Hg] 155 mm[Hg] e CW1 ([facility]) Diastolic blood pressure 83 mm[Hg] 83 mm[Hg] eCW1 ([facility]) Systolic blood pressure 130 mm[Hg] 130 mm[Hg] M EDENT ([facility], ) Diastolic blood pressure 80 mm[Hg] 80 mm[Hg] MEDENT ([facility], ) Heart rate 64 /min 64 /min MEDENT ([facility], ) Respiratory rate 16 /min 16 /min MEDENT ( [facility] ) Body weight 148 [lb_av] 148 [lb_av] eCW1 ([facility]) Body height 61 [in_i] 61 [in_i] eCW1 ([facility]) Body mass index (BMI) [Ratio] 27.96 kg/m2 27.96 kg/m2 eCW1 ([facility]) Heart rate 66 /min 66 /min eCW1 ([facility]) Respiratory rate 18 /min 18 /min eCW1 ([facility]) Body temperature 98 [degF] 98 [degF] eCW1 ([facility]) Systolic blood pressure 156 mm[Hg] 156 mm[Hg] e CW1 ([facility]) Diastolic blood pressure 80 mm[Hg] 80 mm[Hg] eCW1 ([facility]) Body weight 144.12 [lb_av] 144.12 [lb_av] eCW1 ([facility]) Body height 61 [in_i] 61 [in_i] eCW1 ([facility]) Body mass index (BMI) [Ratio] 27.23 kg/m2 27.23 kg/m2 eCW1 ([facility]) Heart rate 70 /min 70 /min eCW1 ([facility]) Respiratory rate 18 /min 18 /min eCW1 ([facility]) Body temperature 98 [degF] 98 [degF] eCW1 ([facility]) Systolic blood pressure 103 mm[Hg] 103 mm[Hg] e CW1 ([facility]) Diastolic blood pressure 68 mm[Hg] 68 mm[Hg] eCW1 ([facility]) Body weight 65.77 kg 65.77 kg eCW1 ([facility]) Body weight 145 [lb_av] 145 [lb_av] eCW1 ([facility]) Body height 61 [in_i] 61 [in_i] eCW1 ([facility]) Body mass index (BMI) [Ratio] 27.39 kg/m2 27.39 kg/m2 eCW1 ([facility]) Heart rate 60 /min 60 /min eCW1 ([facility]) Respiratory rate 18 /min 18 /min eCW1 ([facility]) Body temperature 97.3 [degF] 97.3 [degF] eCW1 ( [facility]) Systolic blood pressure 123 mm[Hg] 123 mm[Hg] e CW1 ([facility]) Diastolic blood pressure 58 mm[Hg] 58 mm[Hg] eCW1 ([facility]) Systolic blood pressure 130 mm[Hg] 130 mm[Hg] M EDENT ([facility], ) Diastolic blood pressure 80 mm[Hg] 80 mm[Hg] MEDENT ([facility], ) Heart rate 72 /min 72 /min MEDENT ([facility], ) Respiratory rate 16 /min 16 /min MEDENT ( [facility] ) Body weight 152 [lb_av] 152 [lb_av] eCW1 ([facility]) Body height 61 [in_i] 61 [in_i] eCW1 ([facility]) Body mass index (BMI) [Ratio] 28.72 kg/m2 28.72 kg/m2 eCW1 ([facility]) Heart rate 65 /min 65 /min eCW1 ([facility]) Respiratory rate 18 /min 18 /min eCW1 ([facility]) Body temperature 98.0 [degF] 98.0 [degF] eCW1 ( [facility]) Systolic blood pressure 142 mm[Hg] 142 mm[Hg] e CW1 ([facility]) Diastolic blood pressure 60 mm[Hg] 60 mm[Hg] eCW1 ([facility]) Systolic blood pressure 120 mm[Hg] 120 mm[Hg] [facility] Diastolic blood pressure 66 mm[Hg] 66 mm[Hg] [facility] Heart rate 68 /min 68 /min [facility] Body weight 67.132 kg 67.132 kg [facility] Body mass index (BMI) [Ratio] 27.96 kg/m2 27.96 kg/m2 [facility] Oxygen saturation in Arterial blood by Pulse oximetry 94 % 94 % [facility] Body weight 151.2 [lb_av] 151.2 [lb_av] eCW1 ([facility]) Body height 61 [in_i] 61 [in_i] eCW1 ([facility]) Body mass index (BMI) [Ratio] 28.57 kg/m2 28.57 kg/m2 eCW1 ([facility]) Heart rate 63 /min 63 /min eCW1 ([facility]) Respiratory rate 18 /min 18 /min eCW1 ([facility]) Body temperature 97.1 [degF] 97.1 [degF] eCW1 ( [facility]) Systolic blood pressure 138 mm[Hg] 138 mm[Hg] e CW1 ([facility]) Diastolic blood pressure 74 mm[Hg] 74 mm[Hg] eCW1 ([facility]) Body weight 153.4 [lb_av] 153.4 [lb_av] eCW1 ([facility]) Body weight 69.5 kg 69.5 kg eCW1 ([facility]) Body height 61 [in_i] 61 [in_i] eCW1 ([facility]) Body mass index (BMI) [Ratio] 28.98 kg/m2 28.98 kg/m2 eCW1 ([facility]) Heart rate 67 /min 67 /min eCW1 ([facility]) Respiratory rate 18 /min 18 /min eCW1 ([facility]) Body temperature 98.6 [degF] 98.6 [degF] eCW1 ( [facility]) Systolic blood pressure 134 mm[Hg] 134 mm[Hg] e CW1 ([facility]) Diastolic blood pressure 62 mm[Hg] 62 mm[Hg] eCW1 ([facility]) Body weight 156.0 [lb_av] 156.0 [lb_av] eCW1 ([facility]) Body height 61 [in_i] 61 [in_i] eCW1 ([facility]) Body mass index (BMI) [Ratio] 29.47 kg/m2 29.47 kg/m2 eCW1 ([facility]) Heart rate 66 /min 66 /min eCW1 ([facility]) Respiratory rate 18 /min 18 /min eCW1 ([facility]) Body temperature 97.3 [degF] 97.3 [degF] eCW1 ( [facility]) Systolic blood pressure 131 mm[Hg] 131 mm[Hg] e CW1 ([facility]) Diastolic blood pressure 63 mm[Hg] 63 mm[Hg] eCW1 ([facility]) Respiratory rate 16 /min 16 /min MEDENT ( [facility], ) Diastolic blood pressure 70 mm[Hg] 70 mm[Hg] MEDENT ([facility], ) Heart rate 76 /min 76 /min MEDENT ([facility], ) Systolic blood pressure 120 mm[Hg] 120 mm[Hg] M EDENT ([facility], ) Body weight 73.1 kg 73.1 kg eCW1 ([facility]) Body weight 161.2 [lb_av] 161.2 [lb_av] eCW1 ([facility]) Body mass index (BMI) [Ratio] 30.46 kg/m2 30.46 kg/m2 W1 ([facility]) Heart rate 68 /min 68 /min eCW1 ([facility]) Respiratory rate 18 /min 18 /min eCW1 ([facility]) Body temperature 99.4 [degF] 99.4 [degF] eCW1 ( [facility]) Systolic blood pressure 118 mm[Hg] 118 mm[Hg] e CW1 ([facility]) Diastolic blood pressure 62 mm[Hg] 62 mm[Hg] eCW1 ([facility]) Body height 61 [in_i] 61 [in_i] eCW1 ([facility]) Body weight 159 [lb_av] 159 [lb_av] eCW1 ([facility]) Body height 61 [in_i] 61 [in_i] eCW1 ([facility]) Body mass index (BMI) [Ratio] 30.04 kg/m2 30.04 kg/m2 eCW1 ([facility]) Heart rate 60 /min 60 /min eCW1 ([facility]) Respiratory rate 19 /min 19 /min eCW1 ([facility]) Body temperature 97.8 [degF] 97.8 [degF] eCW1 ( [facility]) Systolic blood pressure 111 mm[Hg] 111 mm[Hg] e CW1 ([facility]) Diastolic blood pressure 70 mm[Hg] 70 mm[Hg] eCW1 ([facility]) Systolic blood pressure 134 mm[Hg] 134 mm[Hg] [facility] Diastolic blood pressure 82 mm[Hg] 82 mm[Hg] [facility] Heart rate 62 /min 62 /min [facility] Body height 154.9 cm 154.9 cm [facility] Body weight 77.565 kg 77.565 kg [facility] Body mass index (BMI) [Ratio] 32.31 kg/m2 32.31 kg/m2 [facility] Oxygen saturation in Arterial blood by Pulse oximetry 94 % 94 % [facility] Body weight 169.8 [lb_av] 169.8 [lb_av] eCW1 ([facility]) Body height 61 [in_i] 61 [in_i] eCW1 ([facility]) Body mass index (BMI) [Ratio] 32.08 kg/m2 32.08 kg/m2 eCW1 ([facility]) Heart rate 74 /min 74 /min eCW1 ([facility]) Respiratory rate 18 /min 18 /min eCW1 ([facility]) Body temperature 98 [degF] 98 [degF] eCW1 ([facility]) Systolic blood pressure 152 mm[Hg] 152 mm[Hg] e CW1 ([facility]) Diastolic blood pressure 80 mm[Hg] 80 mm[Hg] eCW1 ([facility]) Systolic blood pressure 136 mm[Hg] 136 mm[Hg] [facility] Diastolic blood pressure 70 mm[Hg] 70 mm[Hg] [facility] Heart rate 76 /min 76 /min [facility] Body weight 78.2 kg 78.2 kg [facility] Body mass index (BMI) [Ratio] 32.57 kg/m2 32.57 kg/m2 [facility] Oxygen saturation in Arterial blood by Pulse oximetry 96 % 96 % [facility] Body height 154.9 cm 154.9 cm [facility] Systolic blood pressure 117 mm[Hg] 117 mm[Hg] e CW1 ([facility]) Body weight 172 [lb_av] 172 [lb_av] eCW1 ([facility]) Body height 61 [in_i] 61 [in_i] eCW1 ([facility]) Body mass index (BMI) [Ratio] 32.50 kg/m2 32.50 kg/m2 eCW1 ([facility]) Heart rate 68 /min 68 /min eCW1 ([facility]) Respiratory rate 18 /min 18 /min eCW1 ([facility]) Body temperature 98 [degF] 98 [degF] eCW1 ([facility]) Diastolic blood pressure 70 mm[Hg] 70 mm[Hg] eCW1 ([facility]) Systolic blood pressure 140 mm[Hg] 140 mm[Hg] [facility] Diastolic blood pressure 62 mm[Hg] 62 mm[Hg] [facility] Heart rate 82 /min 82 /min [facility] Body height 154.9 cm 154.9 cm [facility] Body weight 79.379 kg 79.379 kg [facility] Body mass index (BMI) [Ratio] 33.07 kg/m2 33.07 kg/m2 [facility] Oxygen saturation in Arterial blood by Pulse oximetry 88 % 88 % [facility] Systolic blood pressure 130 mm[Hg] 130 mm[Hg] [facility] Diastolic blood pressure 57 mm[Hg] 57 mm[Hg] [facility] Heart rate 67 /min 67 /min [facility] Body temperature 36.83 Kenzie 36.83 Kenzie [facility] Respiratory rate 18 /min 18 /min [facility] Oxygen saturation in Arterial blood by Pulse oximetry 95 % 95 % [facility] Body height 154.9 cm 154.9 cm [facility] Body weight 78.744 kg 78.744 kg [facility] Body mass index (BMI) [Ratio] 32.80 kg/m2 32.80 kg/m2 [facility] Patient Treatment Plan of Care Planned Activity Planned Date Details Description Data Source (s) pregabalin 150 MG Oral Capsule [Lyrica] 07/21/2021 12:00:00 AM EDT eCW1 ([facility]) pregabalin 150 MG Oral Capsule [Lyrica] 07/21/2021 12:00:00 AM EDT eCW1 ([facility]) pregabalin 150 MG Oral Capsule [Lyrica] 07/21/2021 12:00:00 AM EDT eCW1 ([facility]) pregabalin 150 MG Oral Capsule [Lyrica] 07/21/2021 12:00:00 AM EDT eCW1 ([facility]) pregabalin 150 MG Oral Capsule [Lyrica] 07/21/2021 12:00:00 AM EDT eCW1 ([facility]) pregabalin 150 MG Oral Capsule [Lyrica] 07/21/2021 12:00:00 AM EDT eCW1 ([facility]) Acetaminophen 325 MG / Hydrocodone Bitartrate 10 MG Or al Tablet 07/08/2021 12:00:00 AM EDT eCW1 ([facility]) Acetaminophen 325 MG / Hydrocodone Bitartrate 10 MG Or al Tablet 07/08/2021 12:00:00 AM EDT eCW1 ([facility]) Acetaminophen 325 MG / Hydrocodone Bitartrate 10 MG Or al Tablet 07/08/2021 12:00:00 AM EDT eCW1 ([facility]) Acetaminophen 325 MG / Hydrocodone Bitartrate 10 MG Or al Tablet 07/08/2021 12:00:00 AM EDT eCW1 ([facility]) Acetaminophen 325 MG / Hydrocodone Bitartrate 10 MG Or al Tablet 07/08/2021 12:00:00 AM EDT eCW1 ([facility]) Acetaminophen 325 MG / Hydrocodone Bitartrate 10 MG Or al Tablet 07/08/2021 12:00:00 AM EDT eCW1 ([facility]) Acetaminophen 325 MG / Hydrocodone Bitartrate 10 MG Or al Tablet 07/08/2021 12:00:00 AM EDT eCW1 ([facility]) Acetaminophen 325 MG / Hydrocodone Bitartrate 10 MG Or al Tablet 07/08/2021 12:00:00 AM EDT eCW1 ([facility]) Levofloxacin 500 MG Oral Tablet 05/11/2021 12:00:00 AM EDT eCW1 ([facility]) Levofloxacin 500 MG Oral Tablet 05/11/2021 12:00:00 AM EDT eCW1 ([facility]) Levofloxacin 500 MG Oral Tablet 05/11/2021 12:00:00 AM EDT eCW1 ([facility]) Acetaminophen 325 MG / Hydrocodone Bitartrate 10 MG Or al Tablet 05/04/2021 12:00:00 AM EDT eCW1 ([facility]) Acetaminophen 325 MG / Hydrocodone Bitartrate 10 MG Or al Tablet 05/04/2021 12:00:00 AM EDT eCW1 ([facility]) Acetaminophen 325 MG / Hydrocodone Bitartrate 10 MG Or al Tablet 05/04/2021 12:00:00 AM EDT eCW1 ([facility]) Acetaminophen 325 MG / Hydrocodone Bitartrate 10 MG Or al Tablet 05/04/2021 12:00:00 AM EDT eCW1 ([facility]) Acetaminophen 325 MG / Hydrocodone Bitartrate 10 MG Or al Tablet 05/04/2021 12:00:00 AM EDT eCW1 ([facility]) Acetaminophen 325 MG / Hydrocodone Bitartrate 10 MG Or al Tablet 05/04/2021 12:00:00 AM EDT eCW1 ([facility]) Acetaminophen 325 MG / Hydrocodone Bitartrate 10 MG Or al Tablet 05/04/2021 12:00:00 AM EDT eCW1 ([facility]) Acetaminophen 325 MG / Hydrocodone Bitartrate 10 MG Or al Tablet 05/04/2021 12:00:00 AM EDT eCW1 ([facility]) Acetaminophen 325 MG / Hydrocodone Bitartrate 10 MG Or al Tablet 05/04/2021 12:00:00 AM EDT eCW1 ([facility]) Acetaminophen 325 MG / Hydrocodone Bitartrate 10 MG Or al Tablet 03/09/2021 12:00:00 AM EDT eCW1 ([facility]) Acetaminophen 325 MG / Hydrocodone Bitartrate 10 MG Or al Tablet 03/09/2021 12:00:00 AM EDT eCW1 ([facility]) Metronidazole 500 MG Oral Tablet 02/10/2021 12:00:00 AM EDT eCW1 ([facility]) Acetaminophen 325 MG / Hydrocodone Bitartrate 10 MG Or al Tablet 12/30/2020 12:00:00 AM EDT eCW1 ([facility]) Acetaminophen 325 MG / Hydrocodone Bitartrate 10 MG Or al Tablet 10/27/2020 12:00:00 AM EST eCW1 ([facility]) Acetaminophen 325 MG / Hydrocodone Bitartrate 10 MG Or al Tablet 10/27/2020 12:00:00 AM EST eCW1 ([facility]) Acetaminophen 325 MG / Hydrocodone Bitartrate 10 MG Or al Tablet 10/27/2020 12:00:00 AM EST eCW1 ([facility]) Acetaminophen 325 MG / Hydrocodone Bitartrate 10 MG Or al Tablet 10/27/2020 12:00:00 AM EST eCW1 ([facility]) Acetaminophen 325 MG / Hydrocodone Bitartrate 10 MG Or al Tablet 10/27/2020 12:00:00 AM EST eCW1 ([facility]) Acetaminophen 325 MG / Hydrocodone Bitartrate 10 MG Or al Tablet 10/27/2020 12:00:00 AM EST eCW1 ([facility]) Lisinopril 5 MG Oral Tablet 09/29/2020 12:00:00 AM EST eCW1 ([facility]) Lisinopril 5 MG Oral Tablet 09/29/2020 12:00:00 AM EST eCW1 ([facility]) Lisinopril 5 MG Oral Tablet 09/29/2020 12:00:00 AM EST eCW1 ([facility]) Lisinopril 5 MG Oral Tablet 09/29/2020 12:00:00 AM EST eCW1 ([facility]) Lisinopril 5 MG Oral Tablet 09/29/2020 12:00:00 AM EST eCW1 ([facility]) Lisinopril 5 MG Oral Tablet 09/29/2020 12:00:00 AM EST eCW1 ([facility]) Lisinopril 5 MG Oral Tablet 09/29/2020 12:00:00 AM EST eCW1 ([facility]) Lisinopril 5 MG Oral Tablet 09/29/2020 12:00:00 AM EST eCW1 ([facility]) Lisinopril 5 MG Oral Tablet 09/29/2020 12:00:00 AM EST eCW1 ([facility]) Lisinopril 5 MG Oral Tablet 09/29/2020 12:00:00 AM EST eCW1 ([facility]) Lisinopril 5 MG Oral Tablet 09/29/2020 12:00:00 AM EST eCW1 ([facility]) Lisinopril 5 MG Oral Tablet 09/29/2020 12:00:00 AM EST eCW1 ([facility]) Lisinopril 5 MG Oral Tablet 09/29/2020 12:00:00 AM EST eCW1 ([facility]) Lisinopril 5 MG Oral Tablet 09/29/2020 12:00:00 AM EST eCW1 ([facility]) Lisinopril 5 MG Oral Tablet 09/29/2020 12:00:00 AM EST eCW1 ([facility]) Lisinopril 5 MG Oral Tablet 09/29/2020 12:00:00 AM EST [facility] Lisinopril 5 MG Oral Tablet 09/29/2020 12:00:00 AM EST eCW1 ([facility]) Lisinopril 5 MG Oral Tablet 09/29/2020 12:00:00 AM EST eCW1 ([facility]) Lisinopril 5 MG Oral Tablet 09/29/2020 12:00:00 AM EST eCW1 ([facility]) Lisinopril 5 MG Oral Tablet 09/29/2020 12:00:00 AM EST eCW1 ([facility]) Lisinopril 5 MG Oral Tablet 09/29/2020 12:00:00 AM EST eCW1 ([facility]) Lisinopril 5 MG Oral Tablet 09/29/2020 12:00:00 AM EST eCW1 ([facility]) Lisinopril 5 MG Oral Tablet 09/29/2020 12:00:00 AM EST eCW1 ([facility]) Lisinopril 5 MG Oral Tablet 09/29/2020 12:00:00 AM EST eCW1 ([facility]) Lisinopril 5 MG Oral Tablet 09/29/2020 12:00:00 AM EST eCW1 ([facility]) Lisinopril 5 MG Oral Tablet 09/29/2020 12:00:00 AM EST eCW1 ([facility]) Amlodipine 5 MG Oral Tablet 09/17/2020 12:00:00 AM EST [facility] Atenolol 50 MG Oral Tablet 09/01/2020 12:00:00 AM EST [facility] Lisinopril 5 MG Oral Tablet 07/28/2020 12:00:00 AM EST [facility] 24 HR Isosorbide Mononitrate 60 MG Extended Release Or al Tablet 07/26/2020 12:00:00 AM EDT [facility] Amlodipine 5 MG Oral Tablet 07/26/2020 12:00:00 AM EDT [facility] Metoprolol Tartrate 25 MG Oral Tablet 07/25/2020 12:00:00 AM EDT [facility] Docusate Sodium 100 MG Oral Capsule 03/26/2019 12:00:00 AM EDT [facility] POLYETHYLENE GLYCOL 3350 142 MG/ML Oral Solution 03/26/2019 12:00:0 0 AM EDT [facility] Lisinopril 20 MG Oral Tablet [facility] METOPROLOL TARTRATE PO [facility] Metronidazole 500 MG Oral Tablet [facility] Amlodipine 10 MG Oral Tablet [facility] LEVETIRACETAM ER PO [facility] 1 ML evolocumab 140 MG/ML Prefilled Syringe [facility] Lisinopril 20 MG Oral Tablet [facility] Atenolol [address] [facility] Amlodipine 10 MG Oral Tablet [facility]
[2021-08-30 14:27] VITALS: BP 183/82
--- NOTE | 2021-08-30 15:04 | REP ---
INDICATION: fall injury COMPARISON: None. TECHNIQUE: AP and lateral left lower leg. FINDINGS: There is no evidence of acute fracture, dislocation, or intrinsic bone disease.There is an old healed fracture of the distal fibula. Multiple metallic clips are seen in the medial soft tissues. IMPRESSION: No acute fracture or dislocation. <Electronically signed by Mario Brown > 08/30/21 [id number]
[2021-08-30 16:56] LABS: BASO % 0.3 % (0.0-1.0); EOS # 0.1 10^3/uL (0.0-0.5); EOS % 1.5 % (0.0-3.0); HEMATOCRIT 36.3 % (36.0-47.0); HEMOGLOBIN 11.6 g/dl (12.0-15.5); LYMPH % 10.9 % (24.0-44.0); MEAN CORPUSCULAR HEMOGLOBIN 28.9 pg (27.0-33.0); MEAN CORPUSCULAR VOLUME 90.3 fl (80.0-96.0); MONO # 1.1 10^3/uL (0.0-0.8); MONO % 12.4 % (2.0-8.0); NEUTROPHILS # 6.8 10^3/uL (1.5-8.5); NEUTROPHILS % 73.9 % (36.0-66.0); PLATELET COUNT, AUTOMATED 294 10^3/uL (150-450); RED BLOOD COUNT 4.02 10^6/uL (4.00-5.40); WHITE BLOOD COUNT 9.2 10^3/uL (4.0-10.0)
--- OUTSIDE RECORDS SUMMARY | 2021-08-30 17:00 | CCD ---
Author Author [facility] Organization [facility] Address Unknown Phone Unavailable Care Team Providers Care Lab Coordinator Name Role Phone Baljit Zabala MD Unavailable [...] Unavailable Unavailable Baljit Zabala MD Unavailable Unavailable Bajlit Zabala MD Unavailable Unavailable Baljit Zabala MD [...] Unavailable Baljit Zabala MD Unavailable Unavailable Baljit aZbala MD Unavailable Unavailable Baljit Zabala MD Unavailable [...] Zari PA Unavailable Unavailable VANESSA ALVARES ALBERT ORE FEEDER Unavailable Unavailable VANESSA ALVARES ALBERT ORE FEEDER Unavailable Unavailable VANESSA ALVARES ALBERT ORE FEEDER Unavailable Unavailable VANESSA ALVARES ALBERT ORE FEEDER Unavailable Unavailable VANESSA ALVARES ALBERT ORE FEEDER Unavailable Unavailable DIA, VANESSA ALBERT ORE FEEDER Unavailable Unavailable VANESSA ALVARES ALBERT ORE FEEDER Unavailable Unavailable DIA, VANESSA ALBERT ORE FEEDER Unavailable Unavailable DIA, VANESSA ALBERT ORE FEEDER Unavailable Unavailable DIA, VANESSA ALBERT ORE FEEDER Unavailable Unavailable DIA, VANESSA ALBERT ORE FEEDER Unavailable Unavailable DIA, VANESSA ALBERT ORE FEEDER Unavailable Unavailable DIA, VANESSA ALBERT ORE FEEDER Unavailable Unavailable DIA, VANESSA ALBERT ORE FEEDER Unavailable Unavailable ALVARES, VANESSA ALBERT ORE FEEDER Unavailable Unavailable ALVARES, VANESSA ALBERT ORE FEEDER Unavailable Unavailable ALVARES, VANESSA ALBERT ORE FEEDER Unavailable Unavailable ALVARES, VANESSA ALBERT ORE FEEDER Unavailable Unavailable ALVARES, VANESSA ALBERT ORE FEEDER Unavailable Unavailable ALVARES, VANESSA ALBERT ORE FEEDER Unavailable Unavailable ALVARES, VANESSA ALBERT ORE FEEDER Unavailable Unavailable ALVARES, VANESSA ALBERT ORE FEEDER Unavailable Unavailable ALVARES, VANESSA ALBERT ORE FEEDER Unavailable Unavailable ALVARES, VANESSA ALBERT ORE FEEDER Unavailable Unavailable ALVARES, VANESSA ALBERT ORE FEEDER Unavailable Unavailable ALVARES, VANESSA ALBERT ORE FEEDER Unavailable Unavailable ALVARES, VANESSA ALBERT ORE FEEDER Unavailable Unavailable ALVARES, VANESSA ALBERT ORE FEEDER Unavailable Unavailable ALVARES, VANESSA ALBERT ORE FEEDER Unavailable Unavailable ALVARES, VANESSA ALBERT ORE FEEDER Unavailable Unavailable ALVARES, VANESSA ALBERT ORE FEEDER Unavailable Unavailable ALVARES, VANESSA ALBERT ORE FEEDER Unavailable Unavailable ALVARES, VANESSA ALBERT ORE FEEDER Unavailable Unavailable ALVARES, VANESSA ALBERT ORE FEEDER Unavailable Unavailable ALVARES, VANESSA ALBERT ORE FEEDER Unavailable Unavailable ALVARES, VANESSA ALBERT ORE FEEDER Unavailable Unavailable ALVARES, VANESSA ALBERT ORE FEEDER Unavailable Unavailable ALVARES, VANESSA ALBERT ORE FEEDER Unavailable Unavailable ALVARES, VANESSA ALBERT ORE FEEDER Unavailable Unavailable ALVARES, VANESSA ALBERT ORE FEEDER Unavailable Unavailable ALVARES, VANESSA ALBERT ORE FEEDER Unavailable Unavailable ALVARES, VANESSA ALBERT ORE FEEDER Unavailable Unavailable ALVARES, VANESSA ALBERT ORE FEEDER Unavailable Unavailable ALVARES, VANESSA ALBERT ORE FEEDER Unavailable Unavailable ALVARES, VANESSA ALBERT ORE FEEDER Unavailable Unavailable ALVARES, VANESSA ALBERT ORE FEEDER Unavailable Unavailable ALVARES, VANESSA ALBERT ORE FEEDER Unavailable Unavailable ALVARES, VANESSA ALBERT ORE FEEDER Unavailable Unavailable ALVARES, VANESSA ALBERT ORE FEEDER Unavailable Unavailable ALVARES, VANESSA ALBERT ORE FEEDER Unavailable Unavailable ALVARES, VANESSA ALBERT ORE FEEDER Unavailable Unavailable SYMENOW, G CHRISTOPHER PA Unavailable [...] PA Unavailable Unavailable KWAME TAO JR Unavailable [phone] KWAME TAO JR Unavailable [phone] KWAME TAO JR Unavailable [phone] Franny YOUNGER Unavailable [phone] Franny YOUNGER Unavailable [phone] Franny YOUNGER Unavailable [phone] Franny YOUNGER Unavailable [phone] Franny YOUNGER Unavailable [phone] DREA BLEDSOE Unavailable Unavailable BEM, ANA MD [...] Maria Esther, V BOBY PA-C Unavailable Unavailable Bartow, V BOBY PA-C Unavailable Unavailable Bartow, V BOBY PA-C Unavailable Unavailable Bartow, V BOBY PA-C Unavailable Unavailable Bartow, V BOBY PA-C Unavailable Unavailable Bartow, V BOBY PA-C Unavailable Unavailable Maria Esther, V BOBY PA-C Unavailable Unavailable Bartow, V BOBY PA-C Unavailable Unavailable Bartow, V BOBY PA-C Unavailable Unavailable Bartow, V BOBY PA-C Unavailable Unavailable Bartow, V BOBY PA-C Unavailable Unavailable Bartow, V BOBY PA-C Unavailable Unavailable Hsu, W [...] is protected by Article 27-F of the [facility] Public Health law. If you continue you may have access to information: Regarding HIV / AIDS; Provided by facilities licensed or operated by the [facility] Office of Mental Health; or Provided by the [facility] Office for People With Developmental Disabilities. If such information is present, then the following [facility] mandated warning applies: This information has [...] may result in a fine or senior care sentence or both. A general authorization for the release of medical or other information is NOT sufficient authorization for further disc losure. Family History Family Member Name Family Member Gender Family Member Status Date o f Status Description Data Source(s) Unknown Male Problem MEDENT ([facility] ) Unknown Unknown Problem MEDENT ([facility] ) Encounters Encounter Providers Location Date Indications Data Source(s ) Unknown [address] [facility] [address] 08/27/2021 12:00:00 AM EST eCW1 ([facility]) Outpatient [address] [facility] [place] [address] 08/26/2021 12:00:00 AM EST eCW1 ([facility]) Outpatient [address] [facility] [place] [address] 08/26/2021 12:00:00 AM EST eCW1 ([facility]) Outpatient [address] [facility] [place] [address] 08/12/2021 12:00:00 AM EST eCW1 ([facility]) Unknown [address] [facility] [place] [address] 08/12/2021 12:00:00 AM EST eCW1 ([facility]) Unknown [address] [facility] [place] [address] 2021 12:00:00 AM EST eCW1 ([facility]) Outpatient Attender: Zari KATE Main office - [facility] 08/06/2021 07:45:00 AM EST MEDENT ([facility] ) Unknown [address] [facility] [place] [address] 08/04/2021 12:00:00 AM EST eCW1 ([facility]) Unknown [address] [facility] [place] [address] 07/21/2021 12:00:00 AM EDT eCW1 ([facility]) Unknown [address] [facility] [place] [address] 07/12/2021 12:00:00 AM EDT eCW1 ([facility]) Unknown [address] [facility] [address] [place] [address] 07/08/2021 12:00:00 AM EDT eCW1 ([facility]) Unknown [address] [facility] Y [address] 07/07/2021 12:00:00 AM EDT eCW1 ([facility]) Unknown [address] [facility] Y [address] 06/29/2021 12:00:00 AM EDT eCW1 ([facility]) Unknown [address] [facility] [place] [address] 06/28/2021 12:00:00 AM EDT eCW1 ([facility]) Outpatient [email or web address].CT-[email or web address].SYR 06/03/2021 11:46:37 AM EDT [facility] Outpatient [address] [facility] Y [address] 05/25/2021 12:00:00 AM EDT eCW1 ([facility]) Emergency Attender: ANTHONY Preciadoerrer: Eva ALVARES ORE FEEDER EMERGENCY ROOM-ER 05/20/2021 02:14:00 PM EDT - 05/20/2021 02:35:00 PM EDT [facility] Patient discharged. Unknown [address] [facility] [place] [address] 05/14/2021 12:00:00 AM EDT eCW1 ([facility]) Outpatient [address] [facility] [address] 05/11/2021 12:00:00 AM EDT eCW1 ([facility]) (PN Proc 60) Pain Procedure 60 [address] [place] [address] 05/10/2021 12:00:00 AM EDT eCW1 ([facility]) Unknown [address] [facility] Y [address] 05/10/2021 12:00:00 AM EDT eCW1 ([facility]) Unknown [address] [facility] Y [address] 05/07/2021 12:00:00 AM EDT eCW1 ([facility]) Outpatient Attender: Zari KATE Main office - [facility] 05/06/2021 08:00:00 AM EDT MEDENT ([facility] MIGDALIA) Unknown [address] [facility] [address] 05/04/2021 12:00:00 AM EDT eCW1 ([facility]) Unknown [address] [facility] Y [address] 04/30/2021 12:00:00 AM EDT eCW1 ([facility]) Unknown [address] [facility] Y [address] 04/12/2021 12:00:00 AM EDT eCW1 ([facility]) Unknown [address] [facility], [facility] [address] 04/08/2021 12:00:00 AM EDT eCW1 ([facility]) Outpatient [address] [facility] [address] 04/08/2021 12:00:00 AM EDT eCW1 ([facility]) Unknown [address] [facility], [facility] [address] 04/02/2021 12:00:00 AM EDT eCW1 ([facility]) Outpatient Attender: BOBY MARTINES 04/2021 12:00:00 AM EDT - 04/01/2021 01:43:23 PM EDT [facility] Unknown [address] [facility] [address] 03/26/2021 12:00:00 AM EDT eCW1 ([facility]) (PN Proc 45) Pain Procedure 45 [address] [place] [address] 03/25/2021 12:00:00 AM EDT eCW1 ([facility]) Unknown [address] [facility] [address] 03/09/2021 12:00:00 AM EDT eCW1 ([facility]) Outpatient [address] [facility] [address] 02/26/2021 12:00:00 AM EDT eCW1 ([facility]) Outpatient [email or web address].[email or web address] 02/25/2021 12:48:47 PM EDT [facility] Unknown [address] [facility] [address] 02/25/2021 12:00:00 AM EDT eCW1 ([facility]) Unknown [address] [facility] [address] 02/16/2021 12:00:00 AM EDT eCW1 ([facility]) Outpatient [address] [facility] [place] [address] 02/16/2021 12:00:00 AM EDT eCW1 ([facility]) Unknown [address] [facility] Y [address] 02/11/2021 12:00:00 AM EDT eCW1 ([facility]) Unknown [address] [facility] Y [address] 02/10/2021 12:00:00 AM EDT [facility]CW1 [facility] Outpatient Referrer: Zari KATE 01/27/2021 12:00:00 A M EDT Low back pain [facility] Low back pain Unknown [address] [facility] [place] [address] 01/25/2021 12:00:00 AM EDT eCW1 ([facility]) Outpatient Attender: Zari KATE [facility] 01/19/2021 10:45:00 AM EDT MEDENT ([facility]) Unknown [address] [facility] Y [address] 01/14/2021 12:00:00 AM EDT eCW1 ([facility]) Unknown [address] [facility] Y [address] 01/08/2021 12:00:00 AM EDT eCW1 ([facility] Outpatient [address] [facility] Y [address] 01/07/2021 12:00:00 AM EDT eCW1 ([facility]) Outpatient [address] [facility] Y [address] 12/30/2020 12:00:00 AM EDT eCW1 ([facility]) Unknown [address] [facility] Y [address] 12/29/2020 12:00:00 AM EDT eCW1 ([facility]) Outpatient SJP.GINA-ANUPAM 12/16/2020 09:19:29 PM EDT [facility] Unknown [address] [facility] [place] [address] 12/15/2020 12:00:00 AM EDT eCW1 ([facility]) Unknown [address] [facility] [place] [address] 11/20/2020 12:00:00 AM EST eCW1 ([facility]) Outpatient Attender: BOBY TORRES-SJPJosé MiguelGINA 12:00:00 AM EST - 11/19/2020 03:15:17 PM EST [facility] Outpatient TAMERASJRicGINA 11/19/2020 12:00:00 AM EST [facility] Unknown [address] [facility] Y [address] 11/12/2020 12:00:00 AM EST eCW1 ([facility]) Unknown [address] [facility] [place] [address] 10/27/2020 12:00:00 AM EST eCW1 ([facility]) Unknown [address] [facility] [place] [address] 10/27/2020 12:00:00 AM EST eCW1 ([facility]) Office Visit Attender: Zari KATE [facility] office - [facility] 10/21/2020 11:00:00 AM EST MEDENT ([facility]) Unknown [address] [facility] [place] [address] 10/08/2020 12:00:00 AM EST eCW1 ([facility]) Unknown [address] [facility] [place] [address] 10/08/2020 12:00:00 AM EST eCW1 ([facility]) Outpatient Attender: Helio LOPEZeferrer: ALBERT ALVARES NP 10/02/2020 04:30:00 PM [facility] Outpatient [address] [facility] [place] [address] 09/29/2020 12:00:00 AM EST eCW1 ([facility]) Unknown [address] [facility] Y [address] 09/23/2020 12:00:00 AM EST eCW1 ([facility]) Unknown [address] [facility] [place] [address] 09/16/2020 12:00:00 AM EST eCW1 ([facility]) Unknown [address] [facility] [place] [address] 09/04/2020 12:00:00 AM EST eCW1 ([facility]) Outpatient Attender: BOBY MUJICA.GINA 04/2020 12:00:00 AM EST - 09/01/2020 12:01:58 PM EST [facility] Unknown [address] [facility] [place] [address] 09/01/2020 12:00:00 AM EST eCW1 ([facility]) Emergency Attender: LEIGHANN Fountain PAAttender: SONALI PARIS PAReferrer: ALBERT ALVARES EMERGENCY ROOM-ER 08/25/2020 06:47:00 PM EST - 08/25/2020 08:50:00 PM [facility] Patient discharged. Outpatient Attender: LEIGHANN STAHL PAConsultant: Carissa griffin [facility] [id number] 08/25/2020 06:22:00 PM [facility] Office Visit Attender: Zari KATE Main office - [facility] 08/19/2020 09:45:00 AM EST MEDENT ([facility]) Unknown [address] [facility] [place] [address] 08/18/2020 12:00:00 AM EST eCW1 ([facility]) Outpatient BRIAN-YANGP 08/13/2020 10:30:12 AM EST [facility] Outpatient BRIAN-ANUPAM.GINA 08/13/2020 12:00:00 AM EST [facility] Outpatient Attender: BOBY TORRES-GINA 01/2020 12:00:00 AM EST - 07/30/2020 12:44:02 PM EST [facility] ([facility]) Transition of Care Visit [address] [place] [address] 07/30/2020 12:00:00 AM EST eCW1 ([facility]) Unknown [address] [facility] [place] [address] 07/27/2020 12:00:00 AM EST eCW1 ([facility]) Inpatient Attender: Kai Suggs angle: Pauline Hernandez MDAdmitter: Pauline Hernandez MDConsultant: Josie Lockett MD [id number] 07/23/2020 08:4 6:24 PM EDT - 07/28/2020 02:41:00 PM EST [facility] Patient discharged. Emergency Attender: IVORY Preciadoerrer: ASHKAN ALVARES NP EMERGENCY ROOM-ER 07/23/2020 04:11:00 PM EDT - 07/23/2020 06:42:00 PM [facility] Patient discharged. Unknown [address] [facility], [facility] [address] 07/14/2020 12:00:00 AM EDT eCW1 ([facility]) Outpatient Attender: Helio Waltoner: ALBERT ALVARES NP 05/21/2020 01:00:00 PM [facility] Emergency Attender: ANTHONY Preciadoerrer: Eva ALVARES NP EMERGENCY ROOM-ER 03/23/2019 04:00:00 AM EDT - 03/23/2019 12:15:00 PM [facility] Emergency Attender: Yajaira SHAHID Attender: SONALI Mauricio: ALBERT ALVARES NP EMERGENCY ROOM-ER 03/16/2019 07:20:00 PM EDT - 03/16/2019 09:45:00 PM [facility] Patient discharged. Inpatient Attender: KWAME TAO JR Attender: KWAME TAO JRAdmitter: DERICK Lainez: ALBERT ALVARES NP EMERGENCY ROOM-2N 04/01/2018 12:12:00 AM EDT - 04/01/2018 03:22:00 PM [facility] Emergency Attender: ANTHONY CALIXTO PAReferrer: Eva ALVARES ORE FEEDER EMERGENCY ROOM-ER 12/08/2017 08:00:00 AM EDT - 12/08/2017 11:46:00 AM [facility] Inpatient Attender: LEIGHANN Fountain PAAttender: YAJAIRA MACKAYdmitter: YAJAIRA YOUNGERReferrer: ALBERT ALVARES ORE FEEDER EMERGENCY ROOM-2N 11/08/2017 02:04:00 PM EST - 11/06/2017 11:18:00 AM [facility] Outpatient Attender: ANA HINTON MDReferrer: ALBERT Vidal P 04/12/2017 10:38:00 AM [facility] Outpatient Attender: ALBERT ALVARES NPReferrer: CANDE ALVARES ORE FEEDER EMERGENCY ROOM-CT 02/16/2017 08:00:00 AM EDT - 02/16/2017 08:00:00 AM [facility] Emergency Attender: YAJAIRA YOUNGER EMERGENCY ROOM-ER 10/23 10:27:00 AM EST - 10/23/2016 02:26:00 PM [facility] Emergency Attender: LEIGHANN KATE EMERGENCY ROOM- ER 07/26/2016 02:25:00 AM EDT - 07/26/2016 07:23:00 AM [facility] Immunizations Vaccine Date Status Description Data Source(s) Pfizer #3 dose COVID-19 (given elsewhere) SARSCOV2 VAC 30MCG/0.3ML IM 08/25/2021 02:28:00 PM EST completed [facility]CW[facility] ([facility]) Pfizer #3 dose COVID-19 (given elsewhere) SARSCOV2 VAC 30MCG/0.3ML IM 08/25/2021 02:28:00 PM EST completed eCW1 ([facility]) Pfizer #3 dose COVID-19 (given elsewhere) SARSCOV2 VAC 30MCG/0.3ML IM 08/25/2021 02:28:00 PM EST completed eCW1 ([facility]) COVID-19 VACCINE Pfizer 08/25/2021 12:00:00 AM EST completed [facility] Vaccine Series Complete: YESThis Data wa s Submitted to [facility] [employer]. COVID-19 VACC, MRNA(PFIZER)/PF 08/25/2021 12:00:00 AM EST completed [facility] COVID-19 dose #2 given elsewhere Unspecified 11/15/2020 04:0 1:00 PM EST completed eCW1 ([facility]) COVID-19 dose #2 given elsewhere Unspecified 11/15/2020 04:0 1:00 PM EST completed eCW1 ([facility]) COVID-19 dose #2 given elsewhere Unspecified 11/15/2020 04:0 1:00 PM EST completed eCW1 ([facility]) COVID-19 dose #2 given elsewhere Unspecified 11/15/2020 04:0 1:00 PM EST completed eCW1 ([facility]) COVID-19 dose #2 given elsewhere Unspecified 11/15/2020 04:0 1:00 PM EST completed eCW1 ([facility]) COVID-19 dose #2 given elsewhere Unspecified 11/15/2020 04:0 1:00 PM EST completed eCW1 ([facility]) COVID-19 dose #2 given elsewhere Unspecified 11/15/2020 04:0 1:00 PM EST completed eCW1 ([facility]) COVID-19 dose #2 given elsewhere Unspecified 11/15/2020 04:0 1:00 PM EST completed eCW1 ([facility]) COVID-19 dose #2 given elsewhere Unspecified 11/15/2020 04:0 1:00 PM EST completed eCW1 ([facility]) COVID-19 dose #2 given elsewhere Unspecified 11/15/2020 04:0 1:00 PM EST completed eCW1 ([facility]) COVID-19 dose #2 given elsewhere Unspecified 11/15/2020 04:0 1:00 PM EST completed eCW1 ([facility]) COVID-19 dose #2 given elsewhere Unspecified 11/15/2020 04:0 1:00 PM EST completed eCW1 ([facility]) COVID-19 dose #2 given elsewhere Unspecified 11/15/2020 04:0 1:00 PM EST completed eCW1 ([facility]) COVID-19 dose #2 given elsewhere Unspecified 11/15/2020 04:0 1:00 PM EST completed eCW1 ([facility]) COVID-19 dose #2 given elsewhere Unspecified 11/15/2020 04:0 1:00 PM EST completed eCW1 ([facility]) COVID-19 dose #2 given elsewhere Unspecified 11/15/2020 04:0 1:00 PM EST completed eCW1 ([facility]) COVID-19 dose #2 given elsewhere Unspecified 11/15/2020 04:0 1:00 PM EST completed eCW1 ([facility]) COVID-19 dose #2 given elsewhere Unspecified 11/15/2020 04:0 1:00 PM EST completed eCW1 ([facility]) COVID-19 dose #2 given elsewhere Unspecified 11/15/2020 04:0 1:00 PM EST completed eCW1 ([facility]) COVID-19 dose #2 given elsewhere Unspecified 11/15/2020 04:0 1:00 PM EST completed eCW1 ([facility]) COVID-19 dose #2 given elsewhere Unspecified 11/15/2020 04:0 1:00 PM EST completed eCW1 ([facility]) COVID-19 dose #2 given elsewhere Unspecified 11/15/2020 04:0 1:00 PM EST completed eCW1 ([facility]) COVID-19 dose #2 given elsewhere Unspecified 11/15/2020 04:0 1:00 PM EST completed eCW1 ([facility]) COVID-19 dose #2 given elsewhere Unspecified 11/15/2020 04:0 1:00 PM EST completed eCW1 ([facility]) COVID-19 dose #2 given elsewhere Unspecified 11/15/2020 04:0 1:00 PM EST completed eCW1 ([facility]) COVID-19 dose #2 given elsewhere Unspecified 11/15/2020 04:0 1:00 PM EST completed eCW1 ([facility]) COVID-19 dose #2 given elsewhere Unspecified 11/15/2020 04:0 1:00 PM EST completed eCW1 ([facility]) COVID-19 dose #2 given elsewhere Unspecified 11/15/2020 04:0 1:00 PM EST completed eCW1 ([facility]) COVID-19 dose #2 given elsewhere Unspecified 11/15/2020 04:0 1:00 PM EST completed eCW1 ([facility]) COVID-19 dose #2 given elsewhere Unspecified 11/15/2020 04:0 1:00 PM EST completed eCW1 ([facility]) COVID-19 dose #2 given elsewhere Unspecified 11/15/2020 04:0 1:00 PM EST completed eCW1 ([facility]) COVID-19 dose #2 given elsewhere Unspecified 11/15/2020 04:0 1:00 PM EST completed eCW1 ([facility]) COVID-19 dose #2 given elsewhere Unspecified 11/15/2020 04:0 1:00 PM EST completed eCW1 ([facility]) COVID-19 dose #2 given elsewhere Unspecified 11/15/2020 04:0 1:00 PM EST completed eCW1 ([facility]) COVID-19 dose #2 given elsewhere Unspecified 11/15/2020 04:0 1:00 PM EST completed eCW1 ([facility]) COVID-19 dose #2 given elsewhere Unspecified 11/15/2020 04:0 1:00 PM EST completed eCW1 ([facility]) COVID-19 dose #2 given elsewhere Unspecified 11/15/2020 04:0 1:00 PM EST completed eCW1 ([facility]) COVID-19 dose #2 given elsewhere Unspecified 11/15/2020 04:0 1:00 PM EST completed eCW1 ([facility]) COVID-19 dose #2 given elsewhere Unspecified 11/15/2020 04:0 1:00 PM EST completed eCW1 ([facility]) COVID-19 VACCINE Pfizer 11/15/2020 12:00:00 AM EST completed [facility] Vaccine Series Complete: YESThis Data wa s Submitted to [facility], [facility] [employer]. COVID-19 dose #1 given elsewhere Unspecified 10/25/2020 04:0 0:00 PM EST completed eCW1 ([facility]) COVID-19 dose #1 given elsewhere Unspecified 10/25/2020 04:0 0:00 PM EST completed eCW1 ([facility]) COVID-19 dose #1 given elsewhere Unspecified 10/25/2020 04:0 0:00 PM EST completed eCW1 ([facility]) COVID-19 dose #1 given elsewhere Unspecified 10/25/2020 04:0 0:00 PM EST completed eCW1 ([facility]) COVID-19 dose #1 given elsewhere Unspecified 10/25/2020 04:0 0:00 PM EST completed eCW1 ([facility]) COVID-19 dose #1 given elsewhere Unspecified 10/25/2020 04:0 0:00 PM EST completed eCW1 ([facility]) COVID-19 dose #1 given elsewhere Unspecified 10/25/2020 04:0 0:00 PM EST completed eCW1 ([facility]) COVID-19 dose #1 given elsewhere Unspecified 10/25/2020 04:0 0:00 PM EST completed eCW1 ([facility]) COVID-19 dose #1 given elsewhere Unspecified 10/25/2020 04:0 0:00 PM EST completed eCW1 ([facility]) COVID-19 dose #1 given elsewhere Unspecified 10/25/2020 04:0 0:00 PM EST completed eCW1 ([facility]) COVID-19 dose #1 given elsewhere Unspecified 10/25/2020 04:0 0:00 PM EST completed eCW1 ([facility]) COVID-19 dose #1 given elsewhere Unspecified 10/25/2020 04:0 0:00 PM EST completed eCW1 ([facility]) COVID-19 dose #1 given elsewhere Unspecified 10/25/2020 04:0 0:00 PM EST completed eCW1 ([facility]) COVID-19 dose #1 given elsewhere Unspecified 10/25/2020 04:0 0:00 PM EST completed eCW1 ([facility]) COVID-19 dose #1 given elsewhere Unspecified 10/25/2020 04:0 0:00 PM EST completed eCW1 ([facility]) COVID-19 dose #1 given elsewhere Unspecified 10/25/2020 04:0 0:00 PM EST completed eCW1 ([facility]) COVID-19 dose #1 given elsewhere Unspecified 10/25/2020 04:0 0:00 PM EST completed eCW1 ([facility]) COVID-19 dose #1 given elsewhere Unspecified 10/25/2020 04:0 0:00 PM EST completed eCW1 ([facility]) COVID-19 dose #1 given elsewhere Unspecified 10/25/2020 04:0 0:00 PM EST completed eCW1 ([facility]) COVID-19 dose #1 given elsewhere Unspecified 10/25/2020 04:0 0:00 PM EST completed eCW1 ([facility]) COVID-19 dose #1 given elsewhere Unspecified 10/25/2020 04:0 0:00 PM EST completed eCW1 ([facility]) COVID-19 dose #1 given elsewhere Unspecified 10/25/2020 04:0 0:00 PM EST completed eCW1 ([facility]) COVID-19 dose #1 given elsewhere Unspecified 10/25/2020 04:0 0:00 PM EST completed eCW1 ([facility]) COVID-19 dose #1 given elsewhere Unspecified 10/25/2020 04:0 0:00 PM EST completed eCW1 ([facility]) COVID-19 dose #1 given elsewhere Unspecified 10/25/2020 04:0 0:00 PM EST completed eCW1 ([facility]) COVID-19 dose #1 given elsewhere Unspecified 10/25/2020 04:0 0:00 PM EST completed eCW1 ([facility]) COVID-19 dose #1 given elsewhere Unspecified 10/25/2020 04:0 0:00 PM EST completed eCW1 ([facility]) COVID-19 dose #1 given elsewhere Unspecified 10/25/2020 04:0 0:00 PM EST completed eCW1 ([facility]) COVID-19 dose #1 given elsewhere Unspecified 10/25/2020 04:0 0:00 PM EST completed eCW1 ([facility]) COVID-19 dose #1 given elsewhere Unspecified 10/25/2020 04:0 0:00 PM EST completed eCW1 ([facility]) COVID-19 dose #1 given elsewhere Unspecified 10/25/2020 04:0 0:00 PM EST completed eCW1 ([facility]) COVID-19 dose #1 given elsewhere Unspecified 10/25/2020 04:0 0:00 PM EST completed eCW1 ([facility]) COVID-19 dose #1 given elsewhere Unspecified 10/25/2020 04:0 0:00 PM EST completed eCW1 ([facility]) COVID-19 dose #1 given elsewhere Unspecified 10/25/2020 04:0 0:00 PM EST completed eCW1 ([facility]) COVID-19 dose #1 given elsewhere Unspecified 10/25/2020 04:0 0:00 PM EST completed eCW1 ([facility]) COVID-19 dose #1 given elsewhere Unspecified 10/25/2020 04:0 0:00 PM EST completed eCW1 ([facility]) COVID-19 dose #1 given elsewhere Unspecified 10/25/2020 04:0 0:00 PM EST completed eCW1 ([facility]) COVID-19 dose #1 given elsewhere Unspecified 10/25/2020 04:0 0:00 PM EST completed eCW1 ([facility]) COVID-19 dose #1 given elsewhere Unspecified 10/25/2020 04:0 0:00 PM EST completed eCW1 ([facility]) COVID-19 VACCINE Pfizer 10/25/2020 12:00:00 AM EST completed [facility] Vaccine Series Complete: NOThis Data was Submitted to [facility] Via [employer] in 2011. IIV4 07/25/2020 12:00:00 AM EDT completed <t d ID="[id number]">Flu Vaccine =>6MOS Quad Pres-Free</td><td>07/25/2020</td><td></td> [facility] Medications Medication Brand Name Start Date Product [...] {capsule} active L yrica 150 MG eCW1 ([facility]) pregabalin 150 MG Oral Capsule [Lyrica] Lyrica 150 MG Lyrica 150 MG 07/21/2021 12:00:00 AM EDT 1.0 {capsule} active L yrica 150 MG eCW1 ([facility]) pregabalin 150 MG Oral Capsule [Lyrica] Lyrica 150 MG Lyrica 150 MG 07/21/2021 12:00:00 AM EDT 1.0 {capsule} active L yrica 150 MG eCW1 ([facility]) pregabalin 150 MG Oral Capsule [Lyrica] Lyrica 150 MG Lyrica 150 MG 07/21/2021 12:00:00 AM EDT 1.0 {capsule} active L yrica 150 MG eCW1 ([facility]) pregabalin 150 MG Oral Capsule [Lyrica] Lyrica 150 MG Lyrica 150 MG 07/21/2021 12:00:00 AM EDT 1.0 {capsule} active L yrica 150 MG eCW1 ([facility]) pregabalin 150 MG Oral Capsule [Lyrica] Lyrica 150 MG Lyrica 150 MG 07/21/2021 12:00:00 AM EDT 1.0 {capsule} active L yrica 150 MG eCW1 ([facility]) pregabalin 150 MG Oral Capsule [Lyrica] Lyrica 150 MG Lyrica 150 MG 07/21/2021 12:00:00 AM EDT 1.0 {capsule} active L yrica 150 MG eCW1 ([facility]) pregabalin 150 MG Oral Capsule [Lyrica] Lyrica 150 MG Lyrica 150 MG 07/21/2021 12:00:00 AM EDT 1.0 {capsule} active L yrica 150 MG eCW1 ([facility]) Acetaminophen 325 MG / Hydrocodone Bitartrate [...] {tablet_as_needed} active HYDROcodone-Acetaminophen 10- 325 MG eCW1 ([facility]) Acetaminophen 325 MG / Hydrocodone Caryl trate 10 MG Oral Tablet HYDROcodone- Acetaminophen 10-325 MG HYDROcodone-Acetaminophen 10-325 MG 07/08/2021 12:00:0 0 AM EDT 1.0 {tablet_as_needed} active HYDROcodone-Acetaminophen 10- 325 MG eCW1 ([facility]) Acetaminophen 325 MG / Hydrocodone Caryl trate 10 MG Oral Tablet HYDROcodone- Acetaminophen 10-325 MG HYDROcodone-Acetaminophen 10-325 MG 07/08/2021 12:00:0 0 AM EDT 1.0 {tablet_as_needed} active HYDROcodone-Acetaminophen 10- 325 MG eCW1 ([facility]) Acetaminophen 325 MG / Hydrocodone Caryl trate 10 MG Oral Tablet HYDROcodone- Acetaminophen 10-325 MG HYDROcodone-Acetaminophen 10-325 MG 07/08/2021 12:00:0 0 AM EDT 1.0 {tablet_as_needed} active HYDROcodone-Acetaminophen 10- 325 MG eCW1 ([facility]) Acetaminophen 325 MG / Hydrocodone Caryl trate 10 MG Oral Tablet HYDROcodone- Acetaminophen 10-325 MG HYDROcodone-Acetaminophen 10-325 MG 07/08/2021 12:00:0 0 AM EDT 1.0 {tablet_as_needed} active HYDROcodone-Acetaminophen 10- 325 MG eCW1 ([facility]) Acetaminophen 325 MG / Hydrocodone Caryl trate 10 MG Oral Tablet HYDROcodone- Acetaminophen 10-325 MG HYDROcodone-Acetaminophen 10-325 MG 07/08/2021 12:00:0 0 AM EDT 1.0 {tablet_as_needed} active HYDROcodone-Acetaminophen 10- 325 MG eCW1 ([facility]) 75 mg 07/08/2021 12:00:00 AM EDT tablet 90 TAKE ONE TABLET BY MOUTH ONCE DAILY TAKE ONE TABLET BY MOUTH ONCE DAILY SOLD: 07/09/2021 [facility] Acetaminophen 325 MG / Hydrocodone Caryl trate 10 MG Oral Tablet HYDROcodone- Acetaminophen 10-325 MG HYDROcodone-Acetaminophen 10-325 MG 07/08/2021 12:00:0 0 AM EDT 1.0 {tablet_as_needed} active HYDROcodone-Acetaminophen 10- 325 MG eCW1 ([facility]) Acetaminophen 325 MG / Hydrocodone Caryl trate 10 MG Oral Tablet HYDROcodone- Acetaminophen 10-325 MG HYDROcodone-Acetaminophen 10-325 MG 07/08/2021 12:00:0 0 AM EDT 1.0 {tablet_as_needed} active HYDROcodone-Acetaminophen 10- 325 MG eCW1 ([facility]) Acetaminophen 325 MG / Hydrocodone Caryl trate 10 MG Oral Tablet HYDROcodone- Acetaminophen 10-325 MG HYDROcodone-Acetaminophen 10-325 MG 07/08/2021 12:00:0 0 AM EDT 1.0 {tablet_as_needed} active HYDROcodone-Acetaminophen 10- 325 MG eCW1 ([facility]) Acetaminophen 325 MG / Hydrocodone Caryl trate 10 MG Oral Tablet HYDROcodone- Acetaminophen 10-325 MG HYDROcodone-Acetaminophen 10-325 MG 07/08/2021 12:00:0 0 AM EDT 1.0 {tablet_as_needed} active HYDROcodone-Acetaminophen 10- 325 MG eCW1 ([facility]) 30 mg 06/17/2021 12:00:00 AM EDT [...] 1.0 {tablet} active levoFLOXacin 500 MG eCW1 ([facility]) Levofloxacin 500 MG Oral Tablet levoFLOXacin 500 MG levoFLOX acin 500 MG 05/11/2021 12:00:00 AM EDT 1.0 {tablet} suspende d levoFLOXacin 500 MG eCW1 ([facility]) Levofloxacin 500 MG Oral Tablet levoFLOXacin 500 MG levoFLOX acin 500 MG 05/11/2021 12:00:00 AM EDT 1.0 {tablet} suspende d levoFLOXacin 500 MG eCW1 ([facility]) Levofloxacin 500 MG Oral Tablet levoFLOXacin 500 MG levoFLOX acin 500 MG 05/11/2021 12:00:00 AM EDT 1.0 {tablet} active levoFLOXacin 500 MG eCW1 ([facility]) Levofloxacin 500 MG Oral Tablet levoFLOXacin 500 MG levoFLOX acin 500 MG 05/11/2021 12:00:00 AM EDT 1.0 {tablet} suspende d levoFLOXacin 500 MG eCW1 ([facility]) 500 mg 05/11/2021 12:00:00 AM EDT tablet 10 TAKE ONE TABLET BY MOUTH EVERY DAY FOR 10 DAYS TAKE ONE TABLET BY MOUTH EVERY DAY FOR 10 DAYS SOLD: [address] Levofloxacin 500 MG Oral Tablet levoFLOXacin 500 MG levoFLOX acin 500 MG 05/11/2021 12:00:00 AM EDT 1.0 {tablet} suspende d levoFLOXacin 500 MG eCW1 ([facility]) Levofloxacin 500 MG Oral Tablet levoFLOXacin 500 MG levoFLOX acin 500 MG 05/11/2021 12:00:00 AM EDT 1.0 {tablet} suspende d levoFLOXacin 500 MG eCW1 ([facility]) Levofloxacin 500 MG Oral Tablet levoFLOXacin 500 MG levoFLOX acin 500 MG 05/11/2021 12:00:00 AM EDT 1.0 {tablet} suspende d levoFLOXacin 500 MG eCW1 ([facility]) Levofloxacin 500 MG Oral Tablet levoFLOXacin 500 MG levoFLOX acin 500 MG 05/11/2021 12:00:00 AM EDT 1.0 {tablet} suspende d levoFLOXacin 500 MG eCW1 ([facility]) Levofloxacin 500 MG Oral Tablet levoFLOXacin 500 MG levoFLOX acin 500 MG 05/11/2021 12:00:00 AM EDT 1.0 {tablet} suspende d levoFLOXacin 500 MG eCW1 ([facility]) Levofloxacin 500 MG Oral Tablet levoFLOXacin 500 MG levoFLOX acin 500 MG 05/11/2021 12:00:00 AM EDT 1.0 {tablet} suspende d levoFLOXacin 500 MG eCW1 ([facility]) Levofloxacin 500 MG Oral Tablet levoFLOXacin 500 MG levoFLOX acin 500 MG 05/11/2021 12:00:00 AM EDT 1.0 {tablet} suspende d levoFLOXacin 500 MG eCW1 ([facility]) Levofloxacin 500 MG Oral Tablet levoFLOXacin 500 MG levoFLOX acin 500 MG 05/11/2021 12:00:00 AM EDT 1.0 {tablet} suspende d levoFLOXacin 500 MG eCW1 ([facility]) Levofloxacin 500 MG Oral Tablet levoFLOXacin 500 MG levoFLOX acin 500 MG 05/11/2021 12:00:00 AM EDT 1.0 {tablet} suspende d levoFLOXacin 500 MG eCW1 ([facility]) Levofloxacin 500 MG Oral Tablet levoFLOXacin 500 MG levoFLOX acin 500 MG 05/11/2021 12:00:00 AM EDT 1.0 {tablet} suspende d levoFLOXacin 500 MG eCW1 ([facility]) Levofloxacin 500 MG Oral Tablet levoFLOXacin 500 MG levoFLOX acin 500 MG 05/11/2021 12:00:00 AM EDT 1.0 {tablet} suspende d levoFLOXacin 500 MG eCW1 ([facility]) Levofloxacin 500 MG Oral Tablet levoFLOXacin 500 MG levoFLOX acin 500 MG 05/11/2021 12:00:00 AM EDT 1.0 {tablet} active levoFLOXacin 500 MG eCW1 ([facility]) Metronidazole 500 MG Oral Tablet METRONIDAZOLE [...] {tablet_as_needed} active HYDROcodone-Acetaminophen 10- 325 MG eCW1 ([facility]) Acetaminophen 325 MG / Hydrocodone Caryl trate 10 MG Oral Tablet HYDROcodone- Acetaminophen 10-325 MG HYDROcodone-Acetaminophen 10-325 MG 05/04/2021 12:00:0 0 AM EDT 1.0 {tablet_as_needed} active HYDROcodone-Acetaminophen 10- 325 MG eCW1 ([facility]) Acetaminophen 325 MG / Hydrocodone Caryl trate 10 MG Oral Tablet HYDROcodone- Acetaminophen 10-325 MG HYDROcodone-Acetaminophen 10-325 MG 05/04/2021 12:00:0 0 AM EDT 1.0 {tablet_as_needed} active HYDROcodone-Acetaminophen 10- 325 MG eCW1 ([facility]) Acetaminophen 325 MG / Hydrocodone Caryl trate 10 MG Oral Tablet HYDROcodone- Acetaminophen 10-325 MG HYDROcodone-Acetaminophen 10-325 MG 05/04/2021 12:00:0 0 AM EDT 1.0 {tablet_as_needed} active HYDROcodone-Acetaminophen 10- 325 MG eCW1 ([facility]) Acetaminophen 325 MG / Hydrocodone Caryl trate 10 MG Oral Tablet HYDROcodone- Acetaminophen 10-325 MG HYDROcodone-Acetaminophen 10-325 MG 05/04/2021 12:00:0 0 AM EDT 1.0 {tablet_as_needed} active HYDROcodone-Acetaminophen 10- 325 MG eCW1 ([facility]) Acetaminophen 325 MG / Hydrocodone Caryl trate 10 MG Oral Tablet HYDROcodone- Acetaminophen 10-325 MG HYDROcodone-Acetaminophen 10-325 MG 05/04/2021 12:00:0 0 AM EDT 1.0 {tablet_as_needed} active HYDROcodone-Acetaminophen 10- 325 MG eCW1 ([facility]) Acetaminophen 325 MG / Hydrocodone Caryl trate 10 MG Oral Tablet HYDROcodone- Acetaminophen 10-325 MG HYDROcodone-Acetaminophen 10-325 MG 05/04/2021 12:00:0 0 AM EDT 1.0 {tablet_as_needed} active HYDROcodone-Acetaminophen 10- 325 MG eCW1 ([facility]) Acetaminophen 325 MG / Hydrocodone Bitartrate [...] {tablet_as_needed} active HYDROcodone-Acetaminophen 10- 325 MG eCW1 ([facility]) Acetaminophen 325 MG / Hydrocodone Caryl trate 10 MG Oral Tablet HYDROcodone- Acetaminophen 10-325 MG HYDROcodone-Acetaminophen 10-325 MG 05/04/2021 12:00:0 0 AM EDT 1.0 {tablet_as_needed} active HYDROcodone-Acetaminophen 10- 325 MG eCW1 ([facility]) Acetaminophen 325 MG / Hydrocodone Caryl trate 10 MG Oral Tablet HYDROcodone- Acetaminophen 10-325 MG HYDROcodone-Acetaminophen 10-325 MG 05/04/2021 12:00:0 0 AM EDT 1.0 {tablet_as_needed} active HYDROcodone-Acetaminophen 10- 325 MG eCW1 ([facility]) 25 mg 05/02/2021 12:00:00 AM EDT [...] {tablet_as_needed} active HYDROcodone-Acetaminophen 10- 325 MG eCW1 ([facility]) Acetaminophen 325 MG / Hydrocodone Caryl trate 10 MG Oral Tablet HYDROcodone- Acetaminophen 10-325 MG HYDROcodone-Acetaminophen 10-325 MG 03/09/2021 12:00:0 0 AM EDT 1.0 {tablet_as_needed} suspended HYDROcodone-Acetaminophen 10-325 MG eCW1 ([facility]) Acetaminophen 325 MG / Hydrocodone Caryl trate 10 MG Oral Tablet HYDROcodone- Acetaminophen 10-325 MG HYDROcodone-Acetaminophen 10-325 MG 03/09/2021 12:00:0 0 AM EDT 1.0 {tablet_as_needed} suspended HYDROcodone-Acetaminophen 10-325 MG eCW1 ([facility]) Acetaminophen 325 MG / Hydrocodone Caryl trate 10 MG Oral Tablet HYDROcodone- Acetaminophen 10-325 MG HYDROcodone-Acetaminophen 10-325 MG 03/09/2021 12:00:0 0 AM EDT 1.0 {tablet_as_needed} suspended HYDROcodone-Acetaminophen 10-325 MG eCW1 ([facility]) Acetaminophen 325 MG / Hydrocodone Caryl trate 10 MG Oral Tablet HYDROcodone- Acetaminophen 10-325 MG HYDROcodone-Acetaminophen 10-325 MG 03/09/2021 12:00:0 0 AM EDT 1.0 {tablet_as_needed} suspended HYDROcodone-Acetaminophen 10-325 MG eCW1 ([facility]) Acetaminophen 325 MG / Hydrocodone Caryl trate 10 MG Oral Tablet HYDROcodone- Acetaminophen 10-325 MG HYDROcodone-Acetaminophen 10-325 MG 03/09/2021 12:00:0 0 AM EDT 1.0 {tablet_as_needed} active HYDROcodone-Acetaminophen 10- 325 MG eCW1 ([facility]) Acetaminophen 325 MG / Hydrocodone Caryl trate 10 MG Oral Tablet HYDROcodone- Acetaminophen 10-325 MG HYDROcodone-Acetaminophen 10-325 MG 03/09/2021 12:00:0 0 AM EDT 1.0 {tablet_as_needed} suspended HYDROcodone-Acetaminophen 10-325 MG eCW1 ([facility]) Acetaminophen 325 MG / Hydrocodone Caryl trate 10 MG Oral Tablet HYDROcodone- Acetaminophen 10-325 MG HYDROcodone-Acetaminophen 10-325 MG 03/09/2021 12:00:0 0 AM EDT 1.0 {tablet_as_needed} suspended HYDROcodone-Acetaminophen 10-325 MG eCW1 ([facility]) Acetaminophen 325 MG / Hydrocodone Bitartrate 10 MG Or al Tablet 10-325 mg HYDROCODONE/ACETAMINOPHEN 03/09/2021 12:00:00 AM EDT tablet 28 TAKE ONE TABLET BY MOUTH FOUR TIMES A DAY NEEDED FOR PAIN MAXIMUM DAILY DOSE = 4 TAKE ONE TABLET BY MOUTH FOUR TIMES A DAY NEEDED FOR PAIN MAXIMUM DAILY DOSE = 4 SOLD: 03/09/2021 [facility] Acetaminophen 325 MG / Hydrocodone Caryl trate 10 MG Oral Tablet HYDROcodone- Acetaminophen 10-325 MG HYDROcodone-Acetaminophen 10-325 MG 03/09/2021 12:00:0 0 AM EDT 1.0 {tablet_as_needed} suspended HYDROcodone-Acetaminophen 10-325 MG eCW1 ([facility]) 30 mg 03/09/2021 12:00:00 AM EDT capsule,delayed release (DR/EC) 90 TAKE ONE CAPSULE BY MOUTH EVERY MORNING. MAXIMUM DAILY DOSE = 1CAPSULE TAKE ONE CAPSULE BY MOUTH EVERY MORNING. MAXIMUM DAILY DOSE = 1CAPSULE SOLD: 03/09/2021 [facility] Metronidazole 500 MG Oral Tablet metroNIDAZOLE 500 MG metroN IDAZOLE 500 MG 02/10/2021 12:00:00 AM EDT 1.0 {tablet} active metroNIDAZOLE 500 MG eCW1 ([facility]) Metronidazole 500 MG Oral Tablet Metronidazole 500 MG 2020 12:00:00 AM EDT 1.0 {tablet} active Metronidazo le 500 MG eCW1 ([facility]) Metronidazole 500 MG Oral Tablet metroNIDAZOLE 500 MG metroN IDAZOLE 500 MG 02/10/2021 12:00:00 AM EDT 1.0 {tablet} suspende d metroNIDAZOLE 500 MG eCW1 ([facility]) Metronidazole 500 MG Oral Tablet metroNIDAZOLE 500 MG metroN IDAZOLE 500 MG 02/10/2021 12:00:00 AM EDT 1.0 {tablet} suspende d metroNIDAZOLE 500 MG eCW1 ([facility]) Metronidazole 500 MG Oral Tablet metroNIDAZOLE 500 MG metroN IDAZOLE 500 MG 02/10/2021 12:00:00 AM EDT 1.0 {tablet} suspende d metroNIDAZOLE 500 MG eCW1 ([facility]) Metronidazole 500 MG Oral Tablet metroNIDAZOLE 500 MG metroN IDAZOLE 500 MG 02/10/2021 12:00:00 AM EDT 1.0 {tablet} suspende d metroNIDAZOLE 500 MG eCW1 ([facility]) Metronidazole 500 MG Oral Tablet Metronidazole 500 MG 2020 12:00:00 AM EDT 1.0 {tablet} active Metronidazo le 500 MG eCW1 ([facility]) Metronidazole 500 MG Oral Tablet METRONIDAZOLE 02/10/2021 12:0 0:00 AM EDT tablet 30 TAKE ONE TABLET BY MOUTH THREE T IMES A DAY TAKE ONE TABLET BY MOUTH THREE TIMES A DAY SOLD: 02/10/2021 [facility] Metronidazole 500 MG Oral Tablet metroNIDAZOLE 500 MG metroN IDAZOLE 500 MG 02/10/2021 12:00:00 AM EDT 1.0 {tablet} suspende d metroNIDAZOLE 500 MG eCW1 ([facility]) Metronidazole 500 MG Oral Tablet metroNIDAZOLE 500 MG metroN IDAZOLE 500 MG 02/10/2021 12:00:00 AM EDT 1.0 {tablet} active metroNIDAZOLE 500 MG eCW1 ([facility]) Metronidazole 500 MG Oral Tablet metroNIDAZOLE 500 MG metroN IDAZOLE 500 MG 02/10/2021 12:00:00 AM EDT 1.0 {tablet} suspende d metroNIDAZOLE 500 MG eCW1 ([facility]) Metronidazole 500 MG Oral Tablet metroNIDAZOLE 500 MG metro[facility] IDAZOLE 500 MG 02/10/2021 12:00:00 AM EDT 1.0 {tablet} suspende d metroNIDAZOLE 500 MG eCW1 ([facility]) Metronidazole 500 MG Oral Tablet metroNIDAZOLE 500 MG metroN IDAZOLE 500 MG 02/10/2021 12:00:00 AM EDT 1.0 {tablet} suspende d metroNIDAZOLE 500 MG eCW1 ([facility]) Metronidazole 500 MG Oral Tablet metroNIDAZOLE 500 MG metroN IDAZOLE 500 MG 02/10/2021 12:00:00 AM EDT 1.0 {tablet} active metroNIDAZOLE 500 MG eCW1 ([facility]) Metronidazole 500 MG Oral Tablet metroNIDAZOLE 500 MG metroN IDAZOLE 500 MG 02/10/2021 12:00:00 AM EDT 1.0 {tablet} suspende d metroNIDAZOLE 500 MG eCW1 ([facility]) Metronidazole 500 MG Oral Tablet metroNIDAZOLE 500 MG metroN IDAZOLE 500 MG 02/10/2021 12:00:00 AM EDT 1.0 {tablet} suspende d metroNIDAZOLE 500 MG eCW1 ([facility]) Metronidazole 500 MG Oral Tablet metroNIDAZOLE 500 MG metro[facility] IDAZOLE 500 MG 02/10/2021 12:00:00 AM EDT 1.0 {tablet} active metroNIDAZOLE 500 MG eCW1 ([facility]) Metronidazole 500 MG Oral Tablet metroNIDAZOLE 500 MG metroN IDAZOLE 500 MG 02/10/2021 12:00:00 AM EDT 1.0 {tablet} active metroNIDAZOLE 500 MG eCW1 ([facility]) Metronidazole 500 MG Oral Tablet metroNIDAZOLE 500 MG metroN IDAZOLE 500 MG 02/10/2021 12:00:00 AM EDT 1.0 {tablet} suspende d metroNIDAZOLE 500 MG eCW1 ([facility]) Metronidazole 500 MG Oral Tablet metroNIDAZOLE 500 MG metroN IDAZOLE 500 MG 02/10/2021 12:00:00 AM EDT 1.0 {tablet} active metroNIDAZOLE 500 MG eCW1 ([facility]) Metronidazole 500 MG Oral Tablet metroNIDAZOLE 500 MG metro[facility] IDAZOLE 500 MG 02/10/2021 12:00:00 AM EDT 1.0 {tablet} suspende d metroNIDAZOLE 500 MG eCW1 ([facility]) Metronidazole 500 MG Oral Tablet metroNIDAZOLE 500 MG metroN IDAZOLE 500 MG 02/10/2021 12:00:00 AM EDT 1.0 {tablet} active metroNIDAZOLE 500 MG eCW1 ([facility]) Metronidazole 500 MG Oral Tablet Metronidazole 500 MG 2020 12:00:00 AM EDT 1.0 {tablet} active Metronidazo le 500 MG eCW1 ([facility]) Metronidazole 500 MG Oral Tablet metroNIDAZOLE 500 MG metroN IDAZOLE 500 MG 02/10/2021 12:00:00 AM EDT 1.0 {tablet} suspende d metroNIDAZOLE 500 MG eCW1 ([facility]) Metronidazole 500 MG Oral Tablet metroNIDAZOLE 500 MG metroN IDAZOLE 500 MG 02/10/2021 12:00:00 AM EDT 1.0 {tablet} suspende d metroNIDAZOLE 500 MG eCW1 ([facility]) Metronidazole 500 MG Oral Tablet metroNIDAZOLE 500 MG metroN IDAZOLE 500 MG 02/10/2021 12:00:00 AM EDT 1.0 {tablet} active metroNIDAZOLE 500 MG eCW1 ([facility]) Metronidazole 500 MG Oral Tablet metroNIDAZOLE 500 MG metroN IDAZOLE 500 MG 02/10/2021 12:00:00 AM EDT 1.0 {tablet} active metroNIDAZOLE 500 MG eCW1 ([facility]) Metronidazole 500 MG Oral Tablet metroNIDAZOLE 500 MG metroN IDAZOLE 500 MG 02/10/2021 12:00:00 AM EDT 1.0 {tablet} suspende d metroNIDAZOLE 500 MG eCW1 ([facility]) Metronidazole 500 MG Oral Tablet Metronidazole 500 MG 2020 12:00:00 AM EDT 1.0 {tablet} active Metronidazo le 500 MG eCW1 ([facility]) Metronidazole 500 MG Oral Tablet metroNIDAZOLE 500 MG metroN IDAZOLE 500 MG 02/10/2021 12:00:00 AM EDT 1.0 {tablet} active metroNIDAZOLE 500 MG eCW1 ([facility]) Metronidazole 500 MG Oral Tablet metroNIDAZOLE 500 MG metroN IDAZOLE 500 MG 02/10/2021 12:00:00 AM EDT 1.0 {tablet} active metroNIDAZOLE 500 MG eCW1 ([facility]) Metronidazole 500 MG Oral Tablet metroNIDAZOLE 500 MG metroN IDAZOLE 500 MG 02/10/2021 12:00:00 AM EDT 1.0 {tablet} suspende d metroNIDAZOLE 500 MG eCW1 ([facility]) Metronidazole 500 MG Oral Tablet metroNIDAZOLE 500 MG metroN IDAZOLE 500 MG 02/10/2021 12:00:00 AM EDT 1.0 {tablet} active metroNIDAZOLE 500 MG eCW1 ([facility]) Metronidazole 500 MG Oral Tablet metroNIDAZOLE 500 MG metroN IDAZOLE 500 MG 02/10/2021 12:00:00 AM EDT 1.0 {tablet} suspende d metroNIDAZOLE 500 MG eCW1 ([facility]) Metronidazole 500 MG Oral Tablet metroNIDAZOLE 500 MG metroN IDAZOLE 500 MG 02/10/2021 12:00:00 AM EDT 1.0 {tablet} suspende d metroNIDAZOLE 500 MG eCW1 ([facility]) 30 mg 02/07/2021 12:00:00 AM EDT [...] {tablet_as_needed} active Hydrocodone-Acetaminophen 10- 325 MG eCW1 ([facility]) 10-325 mg 12/30/2020 12:00:00 AM EDT [...] {tablet_as_needed} active Hydrocodone-Acetaminophen 10- 325 MG eCW1 ([facility]) Acetaminophen 325 MG / Hydrocodone Caryl trate 10 MG Oral Tablet Hydrocodone- Acetaminophen 10-325 MG Hydrocodone-Acetaminophen 10-325 MG 12/30/2020 12:00:0 0 AM EDT 1.0 {tablet_as_needed} active Hydrocodone-Acetaminophen 10- 325 MG eCW1 ([facility]) Acetaminophen 325 MG / Hydrocodone Caryl trate 10 MG Oral Tablet Hydrocodone- Acetaminophen 10-325 MG Hydrocodone-Acetaminophen 10-325 MG 12/30/2020 12:00:0 0 AM EDT 1.0 {tablet_as_needed} active Hydrocodone-Acetaminophen 10- 325 MG eCW1 ([facility]) Acetaminophen 325 MG / Hydrocodone Caryl trate 10 MG Oral Tablet Hydrocodone- Acetaminophen 10-325 MG Hydrocodone-Acetaminophen 10-325 MG 12/30/2020 12:00:0 0 AM EDT 1.0 {tablet_as_needed} active Hydrocodone-Acetaminophen 10- 325 MG eCW1 ([facility]) Acetaminophen 325 MG / Hydrocodone Caryl trate 10 MG Oral Tablet Hydrocodone- Acetaminophen 10-325 MG Hydrocodone-Acetaminophen 10-325 MG 12/30/2020 12:00:0 0 AM EDT 1.0 {tablet_as_needed} active Hydrocodone-Acetaminophen 10- 325 MG eCW1 ([facility]) Acetaminophen 325 MG / Hydrocodone Caryl trate 10 MG Oral Tablet Hydrocodone- Acetaminophen 10-325 MG Hydrocodone-Acetaminophen 10-325 MG 12/30/2020 12:00:0 0 AM EDT 1.0 {tablet_as_needed} active Hydrocodone-Acetaminophen 10- 325 MG eCW1 ([facility]) Acetaminophen 325 MG / Hydrocodone Caryl trate 10 MG Oral Tablet HYDROcodone- Acetaminophen 10-325 MG HYDROcodone-Acetaminophen 10-325 MG 12/30/2020 12:00:0 0 AM EDT 1.0 {tablet_as_needed} active HYDROcodone-Acetaminophen 10- 325 MG eCW1 ([facility]) Acetaminophen 325 MG / Hydrocodone Caryl trate 10 MG Oral Tablet Hydrocodone- Acetaminophen 10-325 MG Hydrocodone-Acetaminophen 10-325 MG 12/30/2020 12:00:0 0 AM EDT 1.0 {tablet_as_needed} active Hydrocodone-Acetaminophen 10- 325 MG eCW1 ([facility]) Acetaminophen 325 MG / Hydrocodone Caryl trate 10 MG Oral Tablet Hydrocodone- Acetaminophen 10-325 MG Hydrocodone-Acetaminophen 10-325 MG 12/30/2020 12:00:0 0 AM EDT 1.0 {tablet_as_needed} active Hydrocodone-Acetaminophen 10- 325 MG eCW1 ([facility]) 150 mg 12/29/2020 12:00:00 AM EDT [...] {tablet_as_needed} active Hydrocodone-Acetaminophen 10- 325 MG eCW1 ([facility]) Acetaminophen 325 MG / Hydrocodone Caryl trate 10 MG Oral Tablet Hydrocodone- Acetaminophen 10-325 MG Hydrocodone-Acetaminophen 10-325 MG 10/27/2020 12:00:0 0 AM EST 1.0 {tablet_as_needed} active Hydrocodone-Acetaminophen 10- 325 MG eCW1 ([facility]) Acetaminophen 325 MG / Hydrocodone Caryl trate 10 MG Oral Tablet Hydrocodone- Acetaminophen 10-325 MG Hydrocodone-Acetaminophen 10-325 MG 10/27/2020 12:00:0 0 AM EST 1.0 {tablet_as_needed} active Hydrocodone-Acetaminophen 10- 325 MG eCW1 ([facility]) Acetaminophen 325 MG / Hydrocodone Caryl trate 10 MG Oral Tablet Hydrocodone- Acetaminophen 10-325 MG Hydrocodone-Acetaminophen 10-325 MG 10/27/2020 12:00:0 0 AM EST 1.0 {tablet_as_needed} active Hydrocodone-Acetaminophen 10- 325 MG eCW1 ([facility]) Acetaminophen 325 MG / Hydrocodone Caryl trate 10 MG Oral Tablet Hydrocodone- Acetaminophen 10-325 MG Hydrocodone-Acetaminophen 10-325 MG 10/27/2020 12:00:0 0 AM EST 1.0 {tablet_as_needed} active Hydrocodone-Acetaminophen 10- 325 MG eCW1 ([facility]) Acetaminophen 325 MG / Hydrocodone Caryl trate 10 MG Oral Tablet Hydrocodone- Acetaminophen 10-325 MG Hydrocodone-Acetaminophen 10-325 MG 10/27/2020 12:00:0 0 AM EST 1.0 {tablet_as_needed} active Hydrocodone-Acetaminophen 10- 325 MG eCW1 ([facility]) 10-325 mg 10/27/2020 12:00:00 AM EST [...] 1.0 {tablet} active Lisinopril 5 MG eCW1 ([facility]) Lisinopril 5 MG Oral Tablet Lisinopril 5 MG 09/29/2020 12:00:00 AM EST 1.0 {tablet} active Lisinopril 5 MG eCW1 ([facility]) Lisinopril 5 MG Oral Tablet Lisinopril 5 MG 09/29/2020 12:00:00 AM EST 1.0 {tablet} active Lisinopril 5 MG eCW1 ([facility]) Lisinopril 5 MG Oral Tablet Lisinopril 5 MG 09/29/2020 12:00:00 AM EST 1.0 {tablet} active Lisinopril 5 MG eCW1 ([facility]) Lisinopril 5 MG Oral Tablet Lisinopril 5 MG 09/29/2020 12:00:00 AM EST 1.0 {tablet} active Lisinopril 5 MG eCW1 ([facility]) Lisinopril 5 MG Oral Tablet Lisinopril 5 MG 09/29/2020 12:00:00 AM EST 1.0 {tablet} active Lisinopril 5 MG eCW1 ([facility]) Lisinopril 5 MG Oral Tablet Lisinopril 5 MG 09/29/2020 12:00:00 AM EST 1.0 {tablet} active Lisinopril 5 MG eCW1 ([facility]) Lisinopril 5 MG Oral Tablet Lisinopril 5 MG 09/29/2020 12:00:00 AM EST 1.0 {tablet} active Lisinopril 5 MG eCW1 ([facility]) Lisinopril 5 MG Oral Tablet Lisinopril 5 MG 09/29/2020 12:00:00 AM EST 1.0 {tablet} active Lisinopril 5 MG eCW1 ([facility]) Lisinopril 5 MG Oral Tablet Lisinopril 5 MG 09/29/2020 12:00:00 AM EST 1.0 {tablet} active Lisinopril 5 MG eCW1 ([facility]) Lisinopril 5 MG Oral Tablet Lisinopril 5 MG 09/29/2020 12:00:00 AM EST 1.0 {tablet} active Lisinopril 5 MG eCW1 ([facility]) Lisinopril 5 MG Oral Tablet Lisinopril 5 MG 09/29/2020 12:00:00 AM EST 1.0 {tablet} active Lisinopril 5 MG eCW1 ([facility]) 5 mg 09/29/2020 12:00:00 AM EST tablet 90 TAKE ONE TABLET BY MOUTH AT BEDTIME TAKE ONE TABLET BY MOUTH AT BEDTIME SOLD: 01/09/2021 [facility] Lisinopril 5 MG Oral Tablet Lisinopril 5 MG 09/29/2020 12:00:00 AM EST 1.0 {tablet} active Lisinopril 5 MG eCW1 ([facility]) Lisinopril 5 MG Oral Tablet Lisinopril 5 MG 09/29/2020 12:00:00 AM EST 1.0 {tablet} active Lisinopril 5 MG eCW1 ([facility]) Lisinopril 5 MG Oral Tablet Lisinopril 5 MG 09/29/2020 12:00:00 AM EST 1.0 {tablet} active Lisinopril 5 MG eCW1 ([facility]) Lisinopril 5 MG Oral Tablet Lisinopril 5 MG 09/29/2020 12:00:00 AM EST 1.0 {tablet} active Lisinopril 5 MG eCW1 ([facility]) Lisinopril 5 MG Oral Tablet Lisinopril 5 MG 09/29/2020 12:00:00 AM EST 1.0 {tablet} active Lisinopril 5 MG eCW1 ([facility]) Lisinopril 5 MG Oral Tablet lisinopril (PRINIVIL,ZESTR IL) 5 MG tablet lisinopril (PRINIVIL,ZESTRIL) 5 MG tablet 09/29/2020 12:00:00 AM EST 5 mg O ral active Take 5 mg by mouth [facility] Lisinopril 5 MG Oral Tablet Lisinopril 5 MG 09/29/2020 12:00:00 AM EST 1.0 {tablet} active Lisinopril 5 MG eCW1 ([facility]) Lisinopril 5 MG Oral Tablet Lisinopril 5 MG 09/29/2020 12:00:00 AM EST 1.0 {tablet} active Lisinopril 5 MG eCW1 ([facility]) Lisinopril 5 MG Oral Tablet Lisinopril 5 MG 09/29/2020 12:00:00 AM EST 1.0 {tablet} active Lisinopril 5 MG eCW1 ([facility]) Lisinopril 5 MG Oral Tablet Lisinopril 5 MG 09/29/2020 12:00:00 AM EST 1.0 {tablet} active Lisinopril 5 MG eCW1 ([facility]) Lisinopril 5 MG Oral Tablet Lisinopril 5 MG 09/29/2020 12:00:00 AM EST 1.0 {tablet} active Lisinopril 5 MG eCW1 ([facility]) Lisinopril 5 MG Oral Tablet Lisinopril 5 MG 09/29/2020 12:00:00 AM EST 1.0 {tablet} active Lisinopril 5 MG eCW1 ([facility]) Lisinopril 5 MG Oral Tablet Lisinopril 5 MG 09/29/2020 12:00:00 AM EST 1.0 {tablet} active Lisinopril 5 MG eCW1 ([facility]) Lisinopril 5 MG Oral Tablet Lisinopril 5 MG 09/29/2020 12:00:00 AM EST 1.0 {tablet} active Lisinopril 5 MG eCW1 ([facility]) 5 mg 09/29/2020 12:00:00 AM EST tablet 90 TAKE ONE TABLET BY MOUTH AT BEDTIME TAKE ONE TABLET BY MOUTH AT BEDTIME SOLD: 10/02/2020 [facility] Lisinopril 5 MG Oral Tablet Lisinopril 5 MG 09/29/2020 12:00:00 AM EST 1.0 {tablet} active Lisinopril 5 MG eCW1 ([facility]) Lisinopril 5 MG Oral Tablet Lisinopril 5 MG 09/29/2020 12:00:00 AM EST 1.0 {tablet} active Lisinopril 5 MG eCW1 ([facility]) Lisinopril 5 MG Oral Tablet Lisinopril 5 MG 09/29/2020 12:00:00 AM EST 1.0 {tablet} active Lisinopril 5 MG eCW1 ([facility]) Lisinopril 5 MG Oral Tablet Lisinopril 5 MG 09/29/2020 12:00:00 AM EST 1.0 {tablet} active Lisinopril 5 MG eCW1 ([facility]) Lisinopril 5 MG Oral Tablet Lisinopril 5 MG 09/29/2020 12:00:00 AM EST 1.0 {tablet} active Lisinopril 5 MG eCW1 ([facility]) Lisinopril 5 MG Oral Tablet Lisinopril 5 MG 09/29/2020 12:00:00 AM EST 1.0 {tablet} active Lisinopril 5 MG eCW1 ([facility]) Lisinopril 5 MG Oral Tablet Lisinopril 5 MG 09/29/2020 12:00:00 AM EST 1.0 {tablet} active Lisinopril 5 MG eCW1 ([facility]) Lisinopril 5 MG Oral Tablet Lisinopril 5 MG 09/29/2020 12:00:00 AM EST 1.0 {tablet} active Lisinopril 5 MG eCW1 ([facility]) Lisinopril 5 MG Oral Tablet Lisinopril 5 MG 09/29/2020 12:00:00 AM EST 1.0 {tablet} active Lisinopril 5 MG eCW1 ([facility]) Lisinopril 5 MG Oral Tablet Lisinopril 5 MG 09/29/2020 12:00:00 AM EST 1.0 {tablet} active Lisinopril 5 MG eCW1 ([facility]) Lisinopril 5 MG Oral Tablet Lisinopril 5 MG 09/29/2020 12:00:00 AM EST 1.0 {tablet} active Lisinopril 5 MG eCW1 ([facility]) Lisinopril 5 MG Oral Tablet Lisinopril 5 MG 09/29/2020 12:00:00 AM EST 1.0 {tablet} active Lisinopril 5 MG eCW1 ([facility]) Lisinopril 5 MG Oral Tablet Lisinopril 5 MG 09/29/2020 12:00:00 AM EST 1.0 {tablet} active Lisinopril 5 MG eCW1 ([facility]) Lisinopril 5 MG Oral Tablet Lisinopril 5 MG 09/29/2020 12:00:00 AM EST 1.0 {tablet} active Lisinopril 5 MG eCW1 ([facility]) Lisinopril 5 MG Oral Tablet Lisinopril 5 MG 09/29/2020 12:00:00 AM EST 1.0 {tablet} active Lisinopril 5 MG eCW1 ([facility]) Lisinopril 5 MG Oral Tablet Lisinopril 5 MG 09/29/2020 12:00:00 AM EST 1.0 {tablet} active Lisinopril 5 MG eCW1 ([facility]) Lisinopril 5 MG Oral Tablet Lisinopril 5 MG 09/29/2020 12:00:00 AM EST 1.0 {tablet} active Lisinopril 5 MG eCW1 ([facility]) Lisinopril 5 MG Oral Tablet Lisinopril 5 MG 09/29/2020 12:00:00 AM EST 1.0 {tablet} active Lisinopril 5 MG eCW1 ([facility]) Lisinopril 5 MG Oral Tablet Lisinopril 5 MG 09/29/2020 12:00:00 AM EST 1.0 {tablet} active Lisinopril 5 MG eCW1 ([facility]) Lisinopril 5 MG Oral Tablet Lisinopril 5 MG 09/29/2020 12:00:00 AM EST 1.0 {tablet} active Lisinopril 5 MG eCW1 ([facility]) Lisinopril 5 MG Oral Tablet Lisinopril 5 MG 09/29/2020 12:00:00 AM EST 1.0 {tablet} active Lisinopril 5 MG eCW1 ([facility]) Lisinopril 5 MG Oral Tablet Lisinopril 5 MG 09/29/2020 12:00:00 AM EST 1.0 {tablet} active Lisinopril 5 MG eCW1 ([facility]) 5 mg 09/29/2020 12:00:00 AM EST tablet 90 TAKE ONE TABLET BY MOUTH AT BEDTIME TAKE ONE TABLET BY MOUTH AT BEDTIME SOLD: 05/04/2021 [facility] Lisinopril 5 MG Oral Tablet Lisinopril 5 MG 09/29/2020 12:00:00 AM EST 1.0 {tablet} active Lisinopril 5 MG eCW1 ([facility]) Amlodipine 5 MG Oral Tablet amLODIPine (NORVASC) 5 MG tablet amLODIPine (NORVASC) 5 MG tablet 09/17/2020 12:00:00 AM EST 5 mg Oral aborted Take 5 mg by mouth daily [facility] 5 mg 09/17/2020 12:00:00 AM EST tablet [...] tablet (50 mg total) by mouth daily [facility] 25 mg 08/19/2020 12:00:00 AM EST tablet [...] (5 mg total) by mo uth daily [facility] 60 mg 07/28/2020 12:00:00 AM EST tablet extended release 24 hr 30 TAKE ONE TABLET BY MOUTH EVERY DAY TAKE ONE TABLET BY MOUTH EVERY DAY SOLD: 08/03/2020 [facility] Melatonin 3 MG Oral Tablet melatonin tablet 3 mg melatonin t ablet 3 mg 07/27/2020 11:00:00 PM EST 3 mg Oral completed 3 mg, Oral, Once, Mon07/27/20 at 2300, For 1 dose [facility] Medication administered onsite sodium chloride 0.9% (NS) infusion 6520-7799-56 07/27/2020 03:00:00 P M EST Intravenous completed at 100 mL/hr, Intravenous, Continuous, Starting Mon07/27/20 at 1500, For 5 hours, Post-op [facility] Medication administered onsite Nitroglycerin 0.4 MG Sublingual Tablet n itroglycerin (NITROSTAT) SL tablet 0.4 mg nitroglycerin (NITROSTAT) SL tablet 0.4 mg 07/27/2020 02:25:50 P M EST 0.4 mg Sublingual active 0.4 mg, S ublingual, Every 5 min PRN, chest pain, Starting Mon07/27/20 at 1425, Post-op
May administer every 5 minutes for 3 doses and call cardio lab MD.
[facility] Medication administered onsite clopidogrel 75 MG Oral Tablet clopidogrel (PLAVIX) tab let clopidogrel (PLAVIX) tablet 07/27/2020 12:04:55 PM EST active As needed, Starting Mon07/27/20 at 1204, Intra-Procedure [facility] Medication administered onsite 4 ML Verapamil hydrochloride 2.5 MG/ML Injection verap ninoska (ISOPTIN) injection verapamil (ISOPTIN) injection 07/27/2020 11:31:47 AM EST active As needed, Starting Mon07/27/20 at 1131, Intra-Procedure [facility] Medication administered onsite 1 ML heparin sodium, porcine 1000 UNT/ML Injection hep july (porcine) injection heparin (porcine) injection 07/27/2020 11:31:34 AM EST active As needed, Starting Mon07/27/20 at 1131, Intra-Procedure [facility] Medication administered onsite Lisinopril 5 MG Oral Tablet lisinopril (PRINIVIL,ZESTR IL) tablet 5 mg lisinopril (PRINIVIL,ZESTRIL) tablet 5 mg 07/27/2020 09:00:00 AM EST 5 mg O ral active 5 mg, Oral, Daily, First dose on 07/27/20 at 0900 [facility] Medication administered onsite Melatonin 3 MG Oral Tablet melatonin tablet 3 mg melatonin t ablet 3 mg 07/26/2020 11:00:00 PM EST 3 mg Oral completed 3 mg, Oral, Once, 07/26/20 at 2300, For 1 dose [facility] Medication administered onsite normal saline flush 0.9 % injection 3 mL [id number] 07/26/2020 02:00:00 PM EST 3 mL Intravenous active 3 mL , Intravenous, PROTOCOL, First dose on 07/26/20 at 1400, Pre-op
flush per protocol, D/C Main IV fluid if appropriate
[facility] Medication administered onsite normal saline flush 0.9 % injection 3 mL [id number] 07/26/2020 09:00:00 AM EST 3 mL Intravenous active 3 mL , Intravenous, Every 8 hours (scheduled), First dose on 07/26/20 at 0900, Pre-op
Rapid push positive pressure flushing shall be performed with a 10 cc normal saline syringe to check the PATENCY of a PIV site prior to any infusion therapy initiation unless resistance is met.
[facility] Medication administered onsite sodium chloride 0.9% (NS) infusion 7023-9783-68 07/26/2020 09:00:00 AM EST 100 mL/h Intravenous active at 100 m L/hr, 100 mL/hr, Intravenous, Continuous, Starting 07/26/20 at 0900, Pre-op
Start two hours prior to scheduled start time
[facility] Medication administered onsite normal saline flush 0.9 % injection 3 mL [id number] 07/26/2020 09:00:00 AM EST 3 mL Intravenous active 3 mL , Intravenous, Every 8 hours (scheduled), First dose on 11/1/20 at 0900, Pre-op
Rapid push positive pressure flushing shall be performed with a 10 cc normal saline syringe to check the PATENCY of a PIV site prior to any infusion therapy initiation unless resistance is met.
[facility] Medication administered onsite Diphenhydramine Hydrochloride 25 MG Oral Capsule diphenhydrAMINE (BENADRYL) capsule 25 mg diphenhydrAMINE (BENADRYL) capsule 25 mg 07/26/2020 09 :00:00 AM EST 25 mg Oral completed 25 mg, Oral, customer advisor, 07/26/20 at 0900, For 1 dose, Pre-op [facility] Medication administered onsite 24 HR Isosorbide Mononitrate 60 MG Exten ded Release Oral Tablet isosorbide mononitrate (IMDUR) 24 hr tablet 60 mg isosorbide mononitrate (IMDUR) 24 hr tablet 60 mg 07/26/2020 09:00:00 AM EST 60 mg Oral activ e 60 mg, Oral, Daily, First dose on 07/26/20 at 0900 [facility] Medication administered onsite Acetaminophen 325 MG Oral Tablet acetaminophen (TYLENO L) 325 MG tablet 650 mg acetaminophen (TYLENOL) 325 MG tablet 650 mg 07/26/2020 08:36:51 AM EST 650 mg Oral active 650 mg, Or al, Every 4 hours PRN, headaches, and non cardiac pain, Starting 07/26/20 at 0836, Pre-op
"Maximum dose of acetaminophen is 4,000 mg from all sources in 24 hours."
[facility] Medication administered onsite Amlodipine 5 MG Oral Tablet amLODIPine (NORVASC) 5 MG tablet amLODIPine (NORVASC) 5 MG tablet 07/26/2020 12:00:00 AM EDT 5 mg Oral active Take 1 tablet (5 mg total) by mouth daily [facility] 24 HR Isosorbide Mononitrate 60 MG Exten ded Release Oral Tablet isosorbide mononitrate (IMDUR) 60 MG 24 hr tablet isosorbide mononitrate (IMDUR) 60 MG 24 hr tablet 07/26/2020 12:00:00 AM EDT 60 mg Oral active Take 1 tablet (60 mg total) by mouth daily [facility] 24 HR Isosorbide Mononitrate 30 MG Exten ded Release Oral Tablet isosorbide mononitrate (IMDUR) 24 hr tablet 30 mg isosorbide mononitrate (IMDUR) 24 hr tablet 30 mg 07/25/2020 03:00:00 PM EDT 30 mg Oral abort ed 30 mg, Oral, Daily, First dose on 07/25/20 at 1500 [facility] Medication administered onsite Metoprolol Tartrate 25 MG Oral Tablet me toprolol tartrate (LOPRESSOR) tablet 12.5 mg metoprolol tartrate (LOPRESSOR) tablet 12.5 mg 020 10:00:00 AM EDT 12.5 mg Oral active 12.5 mg, Oral, 2 times daily, First dose on 07/25/20 at 1000 [facility] Medication administered onsite Metoprolol Tartrate 25 MG Oral Tablet me toprolol tartrate (LOPRESSOR) 25 MG tablet metoprolol tartrate (LOPRESSOR) 25 MG tablet 07/25/2020 12:0 0:00 AM EDT 12.5 mg Oral active Take 0.5 tablets (12.5 mg total) by mouth 2 (two) times a day [facility] Zolpidem tartrate 5 MG Oral Tablet zolpidem (AMBIEN) t ablet 2.5 mg zolpidem (AMBIEN) tablet 2.5 mg 07/24/2020 10:00:00 PM EDT 2.5 mg Oral completed 2.5 mg, Oral, Once, Mon07/24/20 at 2200, For 1 dose [facility] Medication administered onsite iodixanol (VISIPAQUE) 320 MG/ML injection [id number] 07/24/2020 04:51 :30 PM EDT active As needed, Starting Mon07/24/20 at 1651, Intra-Procedure [facility] Medication administered onsite lidocaine 1 % injection [id number] 07/24/2020 04:50:02 PM EDT active As needed, Starting Mon07/24/20 at 1650, Intra-Procedure [facility] Medication administered onsite Cefazolin 1000 MG Injection ceFAZolin (ANCEF) injectio n ceFAZolin (ANCEF) injection 07/24/2020 04:44:48 PM EDT active As needed, Starting Mon07/24/20 at 1644, Intra-Procedure [facility] Medication administered onsite fentaNYL Citrate (PF) (SUBLIMAZE) injection [id number] 07/24/2020 04:44:32 PM EDT active As neede d, Starting Mon07/24/20 at 1644, Intra-Procedure [facility] Medication administered onsite 2 ML Midazolam 1 MG/ML Injection midazolam (VERSED) in jection midazolam (VERSED) injection 07/24/2020 04:44:24 PM EDT active As needed, Starting Mon07/24/20 at 1644, Intra-Procedure [facility] Medication administered onsite Amlodipine 10 MG Oral Tablet amLODIPine (NORVASC) tabl et 10 mg amLODIPine (NORVASC) tablet 10 mg 07/24/2020 09:00:00 AM EDT 10 mg Oral aborted 10 mg, Oral, Daily, First dose on Mon07/24/20 at 0900 [facility] Medication administered onsite 60 ACTUAT formoterol fumarate 0.005 MG/A CTUAT / mometasone furoate 0.2 MG/ACTUAT Metered Dose Inhaler mometasone-formoterol (DULERA) 200-5 MCG/ACT inhaler 2 puff mometasone-formoterol (DULERA) 200-5 MCG/ACT inhaler 2 puff 07/24/2020 09:00:00 AM EDT 2 {puff} Inhalation active 2 puff, Inhalation, Daily, First dose on Mon07/24/20 at 0900 [facility] Medication administered onsite Chlorthalidone 25 MG Oral Tablet chlorthalidone (HYGRO TEN) tablet 25 mg chlorthalidone (HYGROTEN) tablet 25 mg 07/24/2020 09:00:00 AM EDT 2 5 mg Oral aborted 25 mg, Oral, Daily, First dose on Mon07/24/20 at 0900 [facility] Medication administered onsite Lisinopril 20 MG Oral Tablet lisinopril (PRINIVIL,ZEST RIL) tablet 20 mg lisinopril (PRINIVIL,ZESTRIL) tablet 20 mg 07/24/2020 09:00:00 AM EDT 20 mg Oral aborted 20 mg, Oral, Daily, First dose on Mon07/24/20 at 0900 [facility] Medication administered onsite Aspirin 81 MG Delayed Release Oral Tablet aspirin EC t ablet 81 mg aspirin EC tablet 81 mg 07/24/2020 09:00:00 AM EDT 81 mg Oral activ e 81 mg, Oral, Daily, First dose on Mon07/24/20 at 0900 [facility] Medication administered onsite clopidogrel 75 MG Oral Tablet clopidogrel (PLAVIX) tab let 75 mg clopidogrel (PLAVIX) tablet 75 mg 07/24/2020 09:00:00 AM EDT 75 mg Oral active 75 mg, Oral, Daily, First dose on Mon07/24/20 at 0900 [facility] Medication administered onsite Citalopram 20 MG Oral Tablet citalopram (CeleXA) table t 20 mg citalopram (CeleXA) tablet 20 mg 07/24/2020 09:00:00 AM EDT 20 mg Oral active 20 mg, Oral, Daily, First dose on Mon07/24/20 at 0900 [facility] Medication administered onsite Ipratropium [place] 0.2 MG/ML Inhalant S olution ipratropium (ATROVENT) 0.02 % nebulizer solution 0.5 mg ipratropium (ATROVENT) 0.02 % nebulizer solution 0.5 mg 07/24/2020 08:00:00 AM EDT 0.5 mg active 0.5 mg, Nebulization, 4 times daily, First dose on Mon07/24/20 at 0800 [facility] Medication administered onsite Influenza Vac Split Quad injection 0.5 mL [id number] 07/24/2020 0 5:00:00 AM EDT 0.5 mL Intramuscular completed 0.5 mL , Intramuscular, During hospitalization, Mon07/24/20 at 0500, For 1 dose [facility] Medication administered onsite Levetiracetam 500 MG Oral Tablet levETIRAcetam (KEPPRA ) tablet 500 mg levETIRAcetam (KEPPRA) tablet 500 mg 07/24/2020 01:00:00 AM EDT 500 m g Oral active 500 mg, Oral, 2 times daily, First dose on Mon07/24/20 at 0100 [facility] Medication administered onsite heparin (porcine) injection 5,000 Units [id number] 07/24/20 12:00:00 AM EDT 5000 U Subcutaneous active 5,000 Units , Subcutaneous, Every 12 hours (scheduled), First dose on Mon07/24/20 at 0000
If platelet count is less than 100,000 or hematocrit is less than 30, or if there is a 5 point decrease in hematocrit, do not give the dose and call physician/designee.
[facility] Medication administered onsite pregabalin 75 MG Oral Capsule pregabalin (LYRICA) caps ule 150 mg pregabalin (LYRICA) capsule 150 mg 07/23/2020 11:00:00 PM EDT 150 mg Oral active 150 mg, Oral, 2 times daily, First dose on Mon07/23/20 at 2300, For 7 days [facility] Medication administered onsite Famotidine 20 MG Oral Tablet famotidine (PEPCID) table t 20 mg famotidine (PEPCID) tablet 20 mg 07/23/2020 11:00:00 PM EDT 20 mg Oral active 20 mg, Oral, 2 times daily, First dose on Mon07/23/20 at 2300 [facility] Medication administered onsite Zolpidem tartrate 5 MG Oral Tablet zolpidem (AMBIEN) t ablet 2.5 mg zolpidem (AMBIEN) tablet 2.5 mg 07/23/2020 10:19:39 PM EDT 2.5 mg Oral completed 2.5 mg, Oral, Nightly PRN, sleep, Starting Mon 0 at 2219, For 1 dose [facility] Medication administered onsite Nitroglycerin 0.4 MG Sublingual Tablet n itroglycerin (NITROSTAT) SL tablet 0.4 mg nitroglycerin (NITROSTAT) SL tablet 0.4 mg 07/23/2020 10:17:24 P M EDT 0.4 mg Sublingual aborted 0.4 mg, S ublingual, Every 5 min PRN, chest pain, Starting Martha 07/23/20 at 2217
May administer up to 3 doses per episode.
[facility] Medication administered onsite normal saline flush 0.9 % injection 3 mL [id number] 07/23/2020 10:00:00 PM EDT 3 mL Intravenous aborted 3 mL , Intravenous, Every 8 hours (scheduled), First dose on Martha 07/23/20 at 2200
Rapid push positive pressure flushing shall be performed with a 10 cc normal saline syringe to check the PATENCY of a PIV site prior to any infusion therapy initiation unless resistance is met.
[facility] Medication administered onsite normal saline flush 0.9 % injection 3 mL [id number] 07/23/2020 10:00:00 PM EDT 3 mL Intravenous aborted 3 mL , Intravenous, Every 8 hours (scheduled), First dose on Martha 07/23/20 at 2200
flush per protocol, D/C Main IV fluid if appropriate
[facility] Medication administered onsite ondansetron (ZOFRAN) injection 4 mg [id number] 07/23/2020 08:52:1 8 PM EDT 4 mg Intravenous active 4 mg, In travenous, Every 6 hours PRN, nausea, vomiting, Starting Martha 07/23/20 at 2051 [facility] Medication administered onsite Acetaminophen 325 MG Oral Tablet acetaminophen (TYLENO L) 325 MG tablet 650 mg acetaminophen (TYLENOL) 325 MG tablet 650 mg 07/23/2020 08:52:13 PM EDT 650 mg Oral aborted 650 mg, Or al, Every 8 hours PRN, mild pain (1-3), headaches, Starting Martha 07/23/20 at 2051
"Maximum dose of acetaminophen is 4,000 mg from all sources in 24 hours."
[facility] Medication administered onsite Oxybutynin chloride 5 MG Oral Tablet oxybutynin (DITRO MAN) tablet 5 mg oxybutynin (DITROPAN) tablet 5 mg 07/23/2020 09:00:00 AM EDT 5 mg Oral active 5 mg, Oral, 2 times daily, First dose on Martha 07/23/20 at 0900 [facility] Medication administered onsite 30 ACTUAT fluticasone furoate 0.1 MG/ACT UAT / vilanterol 0.025 MG/ACTUAT Dry Powder Inhaler [Breo] 100-25 mcg/dose FLUTICASONE/VILANTEROL 07/15/2020 12:00 :00 AM EDT blister with device 180 INHALE 1 PUFF BY MOUT H ONCE A DAY INHALE 1 PUFF BY MOUTH ONCE A DAY SOLD: 04/12/2021 [facility] 100-25 mcg/dose 07/15/2020 12:00:00 AM EDT blister with lazaor ce 180 INHALE 1 PUFF BY MOUTH [...] by mouth 2 (two) times a day [facility] POLYETHYLENE GLYCOL 3350 142 MG/ML Oral Solution polyethylene glycol (GLYCOLAX) packet polyethylene glycol (GLYCOLAX) packet 03/26/2019 12:00:00 AM EDT 17 g Oral aborted Take 17 g by mouth d aily [facility] LEVETIRACETAM ER PO Oral aborted Ta ke by mouth [facility] Amlodipine 10 MG Oral Tablet amLODIPine (NORVASC) 10 M G tablet amLODIPine (NORVASC) 10 MG tablet 10 mg Oral aborted T dileep 10 mg by mouth daily [facility] Metronidazole 500 MG Oral Tablet metroNIDAZOLE (FLAGYL ) 500 MG tablet metroNIDAZOLE (FLAGYL) 500 MG tablet 500 mg Oral a borted Take 500 mg by mouth 2 (two) times a day [facility] METOPROLOL TARTRATE PO Oral aborted Take by mouth [facility] Lisinopril 20 MG Oral Tablet lisinopril (PRINIVIL,ZEST RIL) 20 MG tablet lisinopril (PRINIVIL,ZESTRIL) 20 MG tablet 20 mg Oral aborted Take 20 mg by mouth daily [facility] Lisinopril 20 MG Oral Tablet lisinopril (PRINIVIL,ZEST RIL) 20 MG tablet lisinopril (PRINIVIL,ZESTRIL) 20 MG tablet 20 mg Oral aborted Take 20 mg by mouth daily [facility] Atenolol 50 MG Oral Tablet atenolol (TENORMIN) 50 MG t ablet atenolol (TENORMIN) 50 MG tablet 50 mg Oral aborted Take 50 mg by mouth daily [facility] Amlodipine 10 MG Oral Tablet amLODIPine (NORVASC) 10 M G tablet amLODIPine (NORVASC) 10 MG tablet 10 mg Oral aborted T dileep 10 mg by mouth daily [facility] 1 ML evolocumab 140 MG/ML Prefilled Syringe Evolocumab (REPATHA) 140 MG/ML SOSY Evolocumab (REPATHA) 140 MG/ML SOSY 140 mg Subcutaneous aborted Inject 140 mg under the skin every 14 (fourteen) days [facility] Insurance Providers Payer name Policy type / Coverage type Policy ID Covered republican ID Covered republican's relationship to najera Policy Najera Plan Information UHC UNITED MEDICARE DUAL G [id number] Self [id number] [facility] [id number] SP [id number] Medicaid [place] Med[place] Part B [id number] Self [id number] [place] Med[place] [id number] Self [id number] [place] [id number] Self [id number] [place] [id number] Self [id number] [place] Med[place] [id number] Self [id number] [facility] Health Maintenance Organization (HMO) [id number] Self [id number] [facility] DUAL COMPLET [id number] S [id number] [facility] MEDICARE DUAL G [id number] Self [id number] [facility] DUAL COMPLET [id number] S [id number] [facility] MCRO [id number] SP [id number] [facility] [id number] SP [id number] [facility] MEDICARE [id number] Rebecca [id number] [facility] MEDICAID [id number] Rebecca [id number] UNITED [id number] Self [id number] [facility] MEDICARE [id number] xxxxxxxxx [id number] MEDICAID [id number] xxxxxxxx [id number] MEDICAID [id number] Rebecca [id number] MEDICAID M [id number] Self [id number] MEDICAID [id number] SP [id number] EMEDNY [id number] SP [id number] [facility] ([facility]) Commercial [id number] Self [id number] [facility] ([facility]) Commercial [id number] Self [id number] UNITED HEALTHCARE DUAL COMPLET [id number] S [id number] MEDICAID [id number] S [id number] MEDICAID [id number] S [id number] UNITED HEALTHCARE DUAL COMPLET [id number] S [id number] VNA MEDICAID MANAGED I [id number] Self [id number] Medicaid [place] [facility] Part B [id number] Self [id number] UNITED HEALTHCARE MCRHMO [id number] SP [id number] [facility]-Medicare Part B [id number] ANS-Medicare Part B [id number] ANSMedicare Part B [id number] ANS-Medicare Part B [id number] MEDICAID [id number] S [id number] [place] Primary [id number] Self UNITED HEALTHCARE MCRHMO [id number] SP [id number] MEDICARE - [place] [id number] S [id number] UNITED HEALTHCARE DUAL COMPLET [place] [id number] S [id number] UNITED HEALTHCARE DUAL COMPLET [place] [id number] S [id number] [facility] MEDICARE DIVISION [id number] S [id number] [facility] MEDICAID PI PI MEDICAID [id number] SP [id number] Medicare [facility] Medicare Primary [id number] Self [id number] MEDICAID [id number] S [id number] Medicare [facility] Medicare Primary [id number] Self [id number] Medicare [facility] Medicare Primary [id number] Self [id number] MEDICAID [id number] S [id number] Medicare [facility] Medicare Primary [id number] Self [id number] MEDICARE COMPLETE [id number] SP [id number] [facility] [id number] SP [id number] Medicare [facility] Medicare Primary [id number] [facility] MEDICAID [id number] SP [id number] MEDICARE [id number] SP [id number] A [facility] MEDICARE [place] [id number] S [id number] [facility] MEDICARE COMPLETE - O/P [id number] 18 [id number] MEDICAID [id number] Retired [id number] [facility] MEDICARE [id number] Retired [id number] MEDICAID M [id number] S [id number] [facility](MCAID) O [id number] S [id number] Problems, Conditions, and Diagnoses Code Display Name Description Problem Type Effective Dates Data Source(s) Z20.822 CONTACT WITH AND (SUSPECTED) EXPOSURE TO COVID-19 CONTACT WITH AND (SUSPECTED) EXPOSURE TO COVID-19 Diagnosis 05/20/2021 02:14:00 PM [facility] Z79.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 Diagnosis 05/20/2021 02:14:00 PM [facility] [place] Z79.02 FCI (current) use of antithromboti cs/antiplatelets LONGTERM (CURRENT) USE OF ANTITHROMBOTICS/ANTIPLA Diagnosis 05/20/2021 02:14:00 PM [facility] 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 (CU RRENT) USE OF ASPIRIN Diagnosis 05/20/2021 02:14:00 PM [facility] Z87.891 Personal history of nicotine dependence PERSONAL HISTORY OF NICOTINE DEPENDENCE Diagnosis 05/20/2021 02:14:00 PM [facility] J42 Unspecified chronic bronchitis UNSPECIFIED CHRONIC BRO NCHITIS Diagnosis 05/20/2021 02:14:00 PM [facility] I10 Essential (primary) hypertension ESSENTIAL (PRIMARY) H YPERTENSION Diagnosis 05/20/2021 02:14:00 PM [facility] R51.9 HEADACHE, UNSPECIFIED HEADACHE, UNSPECIFIED Diagnosis 05/20/2021 02:14:00 PM [facility] J43.9 Emphysema, unspecified EMPHYSEMA, UNSPECIFIED Diagnosi s 05/20/2021 02:14:00 PM [facility] R06.00 Dyspnea, unspecified DYSPNEA, UNSPECIFIED Diagnosis 05/20/2021 02:14:00 PM [facility] R00.1 Bradycardia, unspecified Bradycardia, unspecified Diag nosis 04/01/2021 12:59:07 PM EDT [facility] I27.20 Pulmonary hypertension, unspecified Pulmonary hy pertension, unspecified Diagnosis 04/01/2021 12:59:07 PM EDT [facility] I10 Essential (primary) hypertension Essential (primary) h ypertension Diagnosis 04/01/2021 12:59:07 PM EDT [facility] I34.2 Nonrheumatic mitral (valve) stenosis Nonrheumati c mitral (valve) stenosis Diagnosis 04/01/2021 12:59:07 PM EDT [facility] E78.2 Mixed hyperlipidemia Mixed hyperlipidemia Diagnosis 04/01/2021 12:59:07 PM EDT [facility] I25.10 Atherosclerotic heart diseas e of [place] coronary artery without angina pectoris Atherosclerotic heart disease of [place] Diagnosis 04/01/2021 12:59:07 PM EDT [facility] R20.2 Paresthesia of skin Paresthesia of skin Diagnosis 0 01/27/2021 11:30:16 AM [facility] M79.604 Pain in right leg Pain in right leg Diagnosis 01/27 11:30:16 AM [facility] M54.5 Low back pain Low back pain Diagnosis 01/27/2021 11:30:16 AM [facility] R00.2 Palpitations Palpitations Diagnosis 11/19/2020 02:49:15 P M [facility] 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 OCCLUSION AND STENOSIS OF BILATERAL VERTEBRAL MONTY Diagnosis 10/02/2020 03:30:00 PM [facility] R42 Dizziness and giddiness DIZZINESS AND GIDDINESS Diagno sis 10/02/2020 03:30:00 PM [facility] I25.10 Atherosclerotic heart diseas e of [place] coronary artery without angina pectoris ATHSCL HEART DISEASE OF [place] CORONARY ARTERY W/O ANG PCTRS Diagnosis 10/02/2020 03:30:00 PM [facility] I70.8 Atherosclerosis of other arteries ATHEROSCLEROSI S OF OTHER ARTERIES Diagnosis 10/02/2020 03:30:00 PM [facility] Z95.0 Presence of cardiac pacemaker PRESENCE OF CARDIAC PACE MAKER Diagnosis 08/25/2020 06:47:00 PM [facility] Z95.1 Presence of aortocoronary bypass graft P RESENCE OF AORTOCORONARY BYPASS GRAFT Diagnosis 08/25/2020 06:47:00 PM [facility] Z95.5 Presence of coronary angioplasty implant and graft PRESENCE OF CORONARY ANGIOPLASTY IMPLANT AND GRAFT Diagnosis 08/25/2020 06:47:00 PM [facility] Z79.891 FCI (current) use of opiate analge 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 (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) USE OF OPIATE ANALGESIC Diagnosis 08/25/2020 06:47:00 PM [facility] J44.9 Chronic obstructive pulmonary disease, u nspecified CHRONIC OBSTRUCTIVE PULMONARY DISEASE, UNSPECIFIED Diagnosis 08/25/2020 06:47:00 PM [facility] R00.2 Palpitations PALPITATIONS Diagnosis 08/25/2020 06:47:00 P M [facility] I20.9 Angina pectoris, unspecified Angina pectoris, unspecif ied Diagnosis 07/23/2020 08:46:24 PM EDT [facility] R07.9 Chest pain, unspecified Chest pain, unspecified Diagno sis 07/23/2020 08:46:24 PM EDT [facility] Z79.51 predatory animal exterminator (current) use of inhaled stero ids LONGTERM (CURRENT) USE OF INHALED STEROIDS Diagnosis 07/23/2020 04:11:00 PM [facility] l Z79.01 FCI (current) use of anticoagulant s LONGTERM (CURRENT) USE OF ANTICOAGULANTS Diagnosis 07/23/2020 04:11:00 PM [facility] l Z20.828 Contact with and (suspected) exposure to other viral communicable diseases CONTACT W AND EXPOSURE TO OTH VIRAL COMMUNICABLE D Diagnosis 07/23/2020 04:11:00 PM [facility] I25.2 Old myocardial infarction OLD MYOCARDIAL INFARCTION Di agnosis 07/23/2020 04:11:00 PM [facility] R07.89 Other chest pain OTHER CHEST PAIN Diagnosis 07/23/2020 04 :11:00 PM [facility] R07.9 Chest pain, unspecified CHEST PAIN, UNSPECIFIED Diagno sis 07/23/2020 04:11:00 PM [facility] I10 [id number] Primary hypertension Problem 05/25/2021 12:0 0:00 AM EDT eCW1 ([facility]) G89.29 Chronic pain Other chronic pain Problem 04/07/2021 12:0 0:00 AM EDT eCW1 ([facility]) M89.49 [id number] Primary osteoarthritis involving multiple joints Problem 01/07/2021 12:00:00 AM EDT eCW1 ([facility]) M05.79 [id number] Rheumatoid arthritis involving multiple sites with positive rheumatoid factor Problem 12/30/2020 12:00:00 AM EDT eCW1 ([facility]) I25.10 [id number] Arteriosclerotic cardiovascular disease ( ASCVD) Problem 09/29/2020 12:00:00 AM EST eCW1 ([facility]) Z95.0 [id number] Status post cardiac pacemaker procedure P roblem 09/29/2020 12:00:00 AM EST eCW1 ([facility]) 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 Pr oblem 07/30/2020 12:00:00 AM EST eCW1 ([facility]) Z95.5 [id number] S/P coronary artery stent placement Probl em 07/30/2020 12:00:00 AM EST eCW1 ([facility]) Z98.890 [id number] History of stent insertion of renal arter y Problem 07/30/2020 12:00:00 AM EST eCW1 ([facility]) J44.9 [id number] COPD (chronic obstru ctive pulmonary disease) case management patient Problem 07/30/2020 12:00:00 AM EST eCW1 ([facility]) Z87.19 [id number] History of diverticulitis Problem 07/30/2020 12:00:00 AM EST eCW1 ([facility]) Z99.81 [id number] Dependence on supplemental oxygen Problem 07/30/2020 12:00:00 AM EST eCW1 ([facility]) R00.1 Symptomatic bradycardia Symptomatic bradycardia [id number] 07/30/2020 12:00:00 AM EST [facility] K57.90 Diverticulosis Diverticulosis [id number] 07/24/2020 12:00: 00 AM EDT [facility] R56.9 Seizure Seizure [id number] 07/24/2020 12:00:00 AM ED T [facility] I51.7 Cardiomegaly Cardiomegaly [id number] 07/23/2020 12:00:00 A M EDT [facility] K21.9 Gastroesophageal reflux disease Gastroesophageal reflu x disease [id number] 07/23/2020 12:00:00 AM EDT [facility] I27.20 Pulmonary hypertension Pulmonary hypertension [id number] 07/23/2020 12:00:00 AM EDT [facility] G47.33 TODD (obstructive sleep apnea) TODD (obstructive sleep a pnea) [id number] 07/23/2020 12:00:00 AM EDT [facility] G62.9 Neuropathy Neuropathy [id number] 07/23/2020 12:00:00 AM ED T [facility] J44.9 COPD (chronic obstructive pulmonary dise ase) COPD (chronic obstructive pulmonary disease) [id number] 07/23/2020 12:00:00 AM EDT [facility] Z99.81 Supplemental oxygen dependent Supplemental oxygen depe ndent [id number] 07/23/2020 12:00:00 AM EDT [facility] 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 [id number] 07/23/2020 12:00:00 AM ED T [facility] I20.9 Angina pectoris Angina pectoris [id number] 07/23/2020 12:0 0:00 AM EDT [facility] Z98.890 History of stent insertion of renal monty ry History of stent insertion of renal artery [id number] 07/23/2020 12:00:00 AM EDT [facility] R00.1 Bradycardia Bradycardia [id number] 07/23/2020 12:00:00 AM EDT [facility] Surgeries/Procedures Procedure Description Date Indications Data Source(s) OFFICE OUTPATIENT VISIT 25 MINUTES 08/06/2021 12:00:00 AM EST [facility] ([facility]) OFFICE OUTPATIENT VISIT 25 MINUTES 05/06/2021 12:00:00 AM EDT [facility] ([facility] ) Pain Procedure Log 04/08/2021 12:00:00 AM EDT eCW1 ([facility]) Medication: Sylvia Tablet 5mg/325mg Orally (Hydrocodone/Aceta minophen) 03/25/2021 12:00:00 AM EDT eCW1 ([facility]) Unclassified drugs 03/25/2021 12:00:00 AM EDT eCW1 ([facility]) Completion of procedural visit when meets criteria 03/25/2021 12:00:00 AM EDT eCW1 ([facility]) Needle electromyography, each extremity, with related paraspinal areas, when performed, done with nerve conduction, amplitude and latency/velocity study; complete, five or more muscles studied, innervated by three or more nerves or four or more spinal levels (list separately in addition to the code for primary procedure). 02/01/2021 12:00:00 AM EDT MEDEN T ([facility] ) Needle electromyography, each extremity, with related paraspinal areas, when performed, done with nerve conduction, amplitude and latency/velocity study; complete, five or more muscles studied, innervated by three or more nerves or four or more spinal levels (list separately in addition to the code for primary procedure). 02/01/2021 12:00:00 AM EDT MEDEN T ([facility] ) [address]355 Nerve conduction studies 13 or more studies NEW 201202/01/2021 12:00:00 AM EDT [facility] ([facility] ) OFFICE OUTPATIENT VISIT 25 MINUTES 01/19/2021 12:00:00 AM EDT [facility] ([facility] ) ECG ROUTINE ECG W/LEAST 12 LDS W/I&R <td>POCT AMB EKG</td><td>Routine</td><td>09/01/2020 2:11 PM EST</td><td> Coronary artery disease involving [place] heart without angina pectoris, unspecified vessel or lesion type</td><td> </td> 09/01/2020 07:11:00 PM EST Coronary artery disease involving [place] heart without angina pectoris, unspecified vessel or lesion type [facility] Coronary artery disease involving [place] heart without angina pectoris, unspecified vessel or lesion type BLOOD COUNT COMPLETE AUTOMATED <td>CBC</td><td>Routine </td><td>07/28/2020 5:43 AM EST</td><td></td><td> </td> 07/28/2020 10:43:00 AM EST [facility] BASIC METABOLIC PANEL CALCIUM TOTAL <td>BASIC METABOLI C PANEL</td><td>Routine</td><td>07/28/2020 5:43 AM EST</td><td></td><td> </td> 07/28/2020 10:43:00 AM EST [facility] ECG ROUTINE ECG W/LEAST 12 LDS TRCG ONLY W/O I&R <td>E CG 12- LEAD</td><td>Routine</td><td>07/28/2020 3:08 AM EST</td><td></td><td></td> 07/28/2020 08:08:09 AM EST [facility] CARDIAC CATHETERIZATION <td>CARDIAC CATHETERIZATION</td><td>Routine</td><td>07/27/2020 11:58 AM EST</td><td> Angina pectoris</td><td> </td> 07/27/2020 04:58:30 PM EST Angina pectoris [facility] Angina pectoris BLOOD COUNT COMPLETE AUTOMATED <td>CBC</td><td>Routine </td><td>07/27/2020 4:15 AM EST</td><td></td><td> </td> 07/27/2020 09:15:00 AM EST [facility] BASIC METABOLIC PANEL CALCIUM TOTAL <td>BASIC METABOLI C PANEL</td><td>Routine</td><td>07/27/2020 4:15 AM EST</td><td></td><td> </td> 07/27/2020 09:15:00 AM EST [facility] ECG ROUTINE ECG W/LEAST 12 LDS W/I&R <td>ECG 12- LEAD</td><td>Routine</td><td>07/27/2020 3:29 AM EST</td><td></td><td></td> 07/27/2020 08:29:33 AM EST [facility] THROMBOPLASTIN TIME PARTIAL PLASMA/WHOLE BLOOD <td>APTT</td><td>Routine</td><td>07/26/2020 10:35 AM EST</td><td></td><td> </td> 07/26/2020 03:35:00 PM EST [facility] PROTHROMBIN TIME <td>PROTIME-INR</td><td>Rout ine</td><td>07/26/2020 10:35 AM EST</td><td></td><td> </td> 07/26/2020 03:35:00 PM EST [facility] BLOOD COUNT COMPLETE AUTOMATED <td>CBC</td><td>Routine </td><td>07/26/2020 6:06 AM EST</td><td></td><td> </td> 07/26/2020 11:06:00 AM EST [facility] BASIC METABOLIC PANEL CALCIUM TOTAL <td>BASIC METABOLI C PANEL</td><td>Routine</td><td>07/26/2020 6:06 AM EST</td><td></td><td> </td> 07/26/2020 11:06:00 AM EST [facility] ECG ROUTINE ECG W/LEAST 12 LDS TRCG ONLY W/O I&R <td>E CG 12- LEAD</td><td>Routine</td><td>07/26/2020 4:44 AM EST</td><td></td><td></td> 07/26/2020 09:44:46 AM EST [facility] TROPONIN QUANTITATIVE <td>TROPONIN I</td><td>STAT< /td><td>07/25/2020 3:22 PM EDT</td><td></td><td> </td> 07/25/2020 07:22:00 PM EDT [facility] ECG ROUTINE ECG W/LEAST 12 LDS TRCG ONLY W/O I&R <td>E CG 12- LEAD</td><td>Routine</td><td>07/25/2020 12:48 PM EDT</td><td></td><td></td> 07/25/2020 04:48:59 PM EDT [facility] ECG ROUTINE ECG W/LEAST 12 LDS TRCG ONLY W/O I&R <td>E CG 12- LEAD</td><td>Routine</td><td>07/25/2020 9:04 AM EDT</td><td></td><td></td> 07/25/2020 01:04:54 PM EDT [facility] BLOOD COUNT COMPLETE AUTOMATED <td>CBC</td><td>Timed</ td><td>07/25/2020 7:11 AM EDT</td><td></td><td> </td> 07/25/2020 11:11:00 AM EDT [facility] BASIC METABOLIC PANEL CALCIUM TOTAL <td>BASIC METABOLI C PANEL</td><td>Timed</td><td>07/25/2020 7:11 AM EDT</td><td></td><td> </td> 07/25/2020 11:11:00 AM EDT [facility] XR CHEST PORTABLE <td>XR CHEST PORTABLE</td><t d>STAT</td><td>07/24/2020 7:08 PM EDT</td><td></td><td> </td> 07/24/2020 11:08:54 PM EDT [facility] EP STUDY <td>EP STUDY</td><td>Routine </td><td>07/24/2020 5:55 PM EDT</td><td> Bradycardia</td><td> </td> 07/24/2020 09:55:02 PM EDT Bradycardia [facility] Bradycardia BLOOD COUNT COMPLETE AUTOMATED <td>CBC</td><td>Timed</ td><td>07/24/2020 4:12 AM EDT</td><td></td><td> </td> 07/24/2020 08:12:00 AM EDT [facility] BASIC METABOLIC PANEL CALCIUM TOTAL <td>BASIC METABOLI C PANEL</td><td>Timed</td><td>07/24/2020 4:12 AM EDT</td><td></td><td> </td> 07/24/2020 08:12:00 AM EDT [facility] TROPONIN QUANTITATIVE <td>TROPONIN I</td><td>Timed </td><td>07/23/2020 11:55 PM EDT</td><td></td><td> </td> 07/24/2020 03:55:00 AM EDT [facility] XR CHEST PORTABLE <td>XR CHEST PORTABLE</td><t d>Routine</td><td>07/23/2020 10:03 PM EDT</td><td></td><td> </td> 07/24/2020 02:03:46 AM EDT [facility] HEMOGLOBIN GLYCOSYLATED A1C <td>HEMOGLOBIN A1C</td><td>Routine</td><td>07/23/2020 9:08 PM EDT</td><td></td><td> </td> 07/24/2020 01:08:00 AM EDT [facility] NT PRO BNP <td>NT PRO BNP</td><td>Routi ne</td><td>07/23/2020 9:07 PM EDT</td><td></td><td> </td> 07/24/2020 01:07:00 AM EDT [facility] TROPONIN QUANTITATIVE <td>TROPONIN I</td><td>Timed </td><td>07/23/2020 9:07 PM EDT</td><td></td><td> </td> 07/24/2020 01:07:00 AM EDT [facility] THROMBOPLASTIN TIME PARTIAL PLASMA/WHOLE BLOOD <td>APTT</td><td>Routine</td><td>07/23/2020 9:07 PM EDT</td><td></td><td> </td> 07/24/2020 01:07:00 AM EDT [facility] PROTHROMBIN TIME <td>PROTIME-INR</td><td>Rout ine</td><td>07/23/2020 9:07 PM EDT</td><td></td><td> </td> 07/24/2020 01:07:00 AM EDT [facility] BLOOD COUNT COMPLETE AUTO&AUTO DIFRNTL WBC COUNT <td>C BC AND DIFFERENTIAL</td><td>Routine</td><td>07/23/2020 9:07 PM EDT</td><td></td><td> </td> 07/24/2020 01:07:00 AM EDT [facility] BLOOD TYPING ABO <td>TYPE AND SCREEN</td><td> Routine</td><td>07/23/2020 9:07 PM EDT</td><td></td><td> </td> 07/24/2020 01:07:00 AM EDT [facility] THYROID STIMULATING HORMONE TSH <td>TSH</td><td>Routin e</td><td>07/23/2020 9:07 PM EDT</td><td></td><td> </td> 07/24/2020 01:07:00 AM EDT [facility] MAGNESIUM <td>MAGNESIUM</td><td>Routin e</td><td>07/23/2020 9:07 PM EDT</td><td></td><td> </td> 07/24/2020 01:07:00 AM EDT [facility] LIPID PANEL <td>LIPID PANEL</td><td>Rout ine</td><td>07/23/2020 9:07 PM EDT</td><td></td><td> </td> 07/24/2020 01:07:00 AM EDT [facility] COMPREHENSIVE METABOLIC PANEL <td>COMPREHENSIVE METABO LIC PANEL</td><td>STAT</td><td>07/23/2020 9:07 PM EDT</td><td></td><td> </td> 07/24/2020 01:07:00 AM EDT [facility] ECG ROUTINE ECG W/LEAST 12 LDS TRCG ONLY W/O I&R <td>E CG 12- LEAD</td><td>Routine</td><td>07/23/2020 8:50 PM EDT</td><td></td><td></td> 07/24/2020 12:50:25 AM EDT [facility] Results ID Date Data Source [id number] 05/20/2021 06:56:00 PM EDT [facility] Patient: FLORA MIJARES Observation Re [facility].VisitID: [id number] [place] [address] [phone], FRegistration Date/Time: 05/20/2021 11:40 Weight:65.7 kg (S). Height/Length:61 inches (S). BMI:27.4 FAMILY HISTORYNo significant family medical history. (Electronically signed by Anthony Calixto, P.AJosé Miguel 05/20/2021 18:40) Name Value Range Interpretation Code Description Data Ximena rce(s) Supporting Document(s) ID Date Data Source [id number] 05/20/2021 01:42:00 PM EDT [facility] [...] a fine reti culonodular pattern may be welding equipment sales representative of interstitial edema.Atypical/viral pneumonia is not excluded. Electronically signed in PS360 by: Ant Perez M.D. 05/20/2021 13:36 EDT Name Value Range Interpretation Code Description Data Ximena rce(s) Supporting Document(s) ID Date Data Source [id number] 05/20/2021 01:05:00 PM EDT [facility] TSYSORDER [id number] Name Value Range Interpretation Code Description Data Ximena rce(s) Supporting Document(s) MAGNESIUM 2.0 mg/dL 1.8-2.4 [facility] ID Date Data Source [id number] 05/20/2021 01:05:00 PM EDT [facility] TSYSORDER [id number] Name Value Range Interpretation Code Description Data Ximena rce(s) Supporting Document(s) TROPONIN-HIGH SENSITIVITY 25.7 ng/L 0-60.4 [facility] ID Date Data Source [id number] 05/20/2021 01:05:00 PM EDT [facility] TSYSORDER [id number] Name Value Range Interpretation Code Description Data Ximena rce(s) Supporting Document(s) GLUCOSE 109 mg/dL 74-106 H [facility] BLOOD UREA NITROGEN 25 mg/dL 7-[address] [facility] ital CREATININE 0.69 mg/dL 0.6-1.0 [facility] SODIUM 142 mmol/L 136-145 [facility] POTASSIUM 3.7 mmol/L 3.5-5.1 [facility] CHLORIDE 105 mmol/L 98-107 [facility] CO2 30 mmol/L 21-32 [facility] CALCIUM 8.3 mg/dL 8.5-10.1 [facility] ANION GAP 7.0 mmol/L 5-12 [facility] GLOMERULAR FILTRATION RATE 82 mL/min [facility] GFR IS CALCULATED IN mL/min/1.73m2 AGNIESZKA L FUNCTION: >90MILDLY DECREASED: 60-89MILDY TO MODERATELY DECREASED: 45-59 MODERATELY TO SEVERELY DECREASED: 30-44SEVERELY DECREASED: 15-29RENAL FAILURE: <15 AST 23 U/L 15-37 [facility] ALT 31 U/L 12-78 [facility] ALKALINE PHOSPHATASE 95 U/L 46-116 [facility] TOTAL BILIRUBIN 0.5 mg/dL 0.2-1.0 [facility] TOTAL PROTEIN 6.3 g/dl 6.4-8.2 L [facility] ALBUMIN 3.1 gm/dL 3.4-5.0 [facility] ID Date Data Source [id number] 05/20/2021 12:44:00 PM EDT [facility] TSYSORDER [id number] Name Value Range Interpretation Code Description Data Ximena rce(s) Supporting Document(s) WHITE BLOOD COUNT 8.4 K/mm3 4.0-10.0 [facility] al RED BLOOD COUNT 4.17 M/mm3 4.00-5.50 [facility] HEMOGLOBIN 12.1 gm/dL 12.0-16.0 [facility] HEMATOCRIT 36.6 % 36.0-48.8 [facility] MEAN CELL VOLUME 87.8 fl 80-96 [facility] MEAN CORPUSCULAR HEMOGLOBIN 29.0 pg 27.0-31.0 [facility] MEAN CORPUSCULAR HGB CONC 33.1 g/dl 32.0-36.0 [facility] RED CELL DISTRIBUTION WIDTH 15.3 % 10.0-14.5 H [facility] PLATELET COUNT 248 K/mm3 172-450 [facility] MEAN PLATELET VOLUME 9.7 fl 9.0-13.0 [facility] pital GRAN % 76.3 % 50-80.0 [facility] IG% 0.5 % 0.0-0.2 [facility] LYMPH % 11.1 % 25.0-50.0 L [facility] MONO % 10.6 % 2.0-10.0 [facility] EOS % 1.4 % 0-5.0 [facility] BASO % 0.1 % 0.0-2.0 [facility] GRAN # 6.4 K/mm3 2.0-8.00 [facility] IG# 0.0 K/mm3 0.0-0.2 [facility] LYMPH # 0.9 K/mm3 1.0-5.0 L [facility] MONO # 0.9 K/mm3 0.10-1.20 [facility] EOS # 0.1 K/mm3 0.0-0.5 [facility] BASO # 0.0 K/mm3 0.0-0.2 [facility] ID Date Data Source [id number] 05/20/2021 12:43:00 PM EDT [facility] TSYSORDER [id number] Name Value Range Interpretation Code Description Data Ximena rce(s) Supporting Document(s) PH 7.35 7.31-7.41 [facility] VENOUS PCO2 51.8 mmHg 41-51 [facility] VENOUS PO2 37 mmHg 35-42 [facility] VENOUS BLODD O2 SATURATION 58.0 % 68-77 L [facility] VENOUS BLOOD HCO3 27.7 meq/L 24.0-25.0 [facility] trace VENOUS BASE EXCESS 1.8 -3.0-3.0 [facility] BLOOD CO2 29.3 mmol/L 23.0-32.0 [facility] trace ID Date Data Source [id number] 05/20/2021 12:55:00 PM EDT [facility] TSYSORDER [id number] Name Value Range Interpretation Code Description Data Ximena rce(s) Supporting Document(s) URINE RBC 0-2 /hpf 0-3 [facility] URINE WBC 1-3 /hpf 0-5 [facility] URINE EPITHELIAL CELLS 1+ /hpf 0 [facility] URINE BACTERIA TRACE NONE SEEN H [facility] ID Date Data Source [id number] 05/20/2021 12:54:00 PM EDT [facility] TSYSORDER [id number] Name Value Range Interpretation Code Description Data Ximena rce(s) Supporting Document(s) URINE COLOR. [facility] URINE APPEARANCE CLEAR [facility] GLUCOSE (UA) NEGATIVE mg/dL NEGATIVE [facility] URINE BILIRUBIN NEGATIVE NEGATIVE [facility] URINE KETONE NEGATIVE mg/dL [facility]GAT[facility] SPECIFIC GRAVITY,URINE 1.020 1.005-1.030 [facility] URINE BLOOD NEGATIVE NEGATIVE [facility] PH,URINE 7.0 5.0-9.0 [facility] URINE PROTEIN NEGATIVE mg/dL NEGATIVE [facility] URINE UROBILINOGEN NORMAL(0.2-1) mg/dL 0-1 [facility] URINE NITRATE NEGATIVE NEGATIVE [facility] URINE LEUKOCYTE ESTERASE TRACE NEGATIVE H [facility] ID Date Data Source [id number] 05/20/2021 11:52:00 AM EDT [facility] Name Value Range Interpretation Code Description Data Ximena rce(s) Supporting Document(s) SARS COV2 TRP Not Detected [facility] This lab was ordered by [facility] and reported by [facility]. ID Date Data Source [id number] 05/20/2021 01:11:[address] [facility] TSYSORDER [id number] Name Value Range Interpretation Code Description Data Ximena rce(s) Supporting Document(s) Adenovirus Not Detected Detected Not [facility] Coronavirus 229E Not Detected Detected Not [facility] Coronavirus HKU1 Not Detected Detected Not [facility] Coronavirus NL63 Not Detected Detected Not [facility] Coronavirus OC43 Not Detected Detected Not [facility] Sars Cov 2 Not Detected Detected Not [facility] Negative results do not preclude SARS-Co V-2 infection andshould not be used as the sole basis for treatment or otherpatient management decisions. Negative SARS-CoV-2 resultsmust be combined with clinical observations, patienthistory, and epidemiological information. Human Metapneumovirus Not Detected Detected Not [facility] Human Rhinovirus Not Detected Detected Not [facility] Influenza A Not Detected Detected [facility] Influenza B Not Detected Detected [facility] Parainfluenza Virus 1 Not Detected Detected [facility] Parainfluenza Virus 2 Not Detected Detected [facility] Parainfluenza Virus 3 Not Detected Detected [facility] Parainfluenza Virus 4 Not Detected Detected [facility] Respiratory Syncytial Virus Not Detected Detected [facility] Bordetella parapertus ([id number]) Not Detected Detected [facility] Bordetella pertussis (ptxP) Not Detected Detected Not [facility] Chlamydia pneumoniae Not Detected Detected Not [facility] Mycoplasma pneumoniae Not Detected Detected Not [facility] The results of the respiratory panel [...] results have been determined by using the [employer] system.FilmArray is an automated in vitro diagnostic system thatutilizes nested multiplex Polymerase Chain Reaction (PCR)and high-resolution melting analysis to detect and identifymultiple nucleic acid targets from clinical specimens. ID Date Data Source GASTROINTESTINAL GI PANEL (GIPANEL) 05/12/2021 12:00:00 AM EDT eCW1 ([facility]) Name Value Range Interpretation Code Description Data Ximena rce(s) Supporting Document(s) This Gastrointestinal PCR Panel detects the following bacteria, GASTROINTESTINAL (GI) PANEL eCW1 ([facility]) ID Date Data Source CBC with Auto Differential 05/11/2021 12:00:00 AM EDT eCW1 ( [facility]) Name Value Range Interpretation Code Description Data Ximena rce(s) Supporting Document(s) 7.1 4.0-10.0 WHITE BLOOD COUNT eCW1 (Critical access hospital) 39.4 36.0-47.0 HEMATOCRIT eCW1 (Critical access hospital) 4.36 4.00-5.40 RED BLOOD COUNT eCW1 ([facility]) 12.5 12.0-15.5 HEMOGLOBIN eCW1 (Critical access hospital) 28.7 27.0-33.0 MEAN CORPUSCULAR HEMOGLOB IN eCW1 ([facility]) 90.4 80.0-96.0 MEAN CORPUSCULAR VOLUME e CW1 ([facility]) 31.7 32.0-36.5 MEAN CORPUSCULAR HGB CONC eCW1 ([facility]) 14.8 11.5-14.5 RED CELL DISTRIBUTION WID TH eCW1 ([facility]) 250 150-450 PLATELET COUNT, AUTOMATED eCW1 ([facility]) 66.6 36.0-66.0 NEUTROPHILS % eCW1 ([facility]) 18.5 24.0-44.0 LYMPH % eCW1 ([facility]) 0.6 0-3.0 IMMATURE GRANULOCYTE % eCW1 ([facility]) 1.4 0.0-3.0 EOS % eCW1 ([facility]) 12.3 2.0-8.0 MONO % eCW1 ([facility]) 0.6 0.0-1.0 BASO % eCW1 ([facility]) 4.7 1.5-8.5 NEUTROPHILS # eCW1 ([facility]) 0.0 0-0 NUCLEATED RED BLOOD CELL % eCW 1 ([facility]) 1.3 1.5-5.0 LYMPH # eCW1 ([facility]) 0.1 0.0-0.5 EOS # eCW1 ([facility]) 0.0 0.0-0.2 BASO # eCW1 ([facility]) 0.9 0.0-0.8 MONO # eCW1 ([facility]) ID Date Data Source MAGNESIUM LEVEL 05/11/2021 12:00:00 AM EDT eCW1 ([facility]) Name Value Range Interpretation Code Description Data Ximena rce(s) Supporting Document(s) 1.9 1.8-2.4 MAGNESIUM LEVEL eCW1 ([facility]) ID Date Data Source FREE T4 & TSH PANEL 05/11/2021 12:00:00 AM EDT eCW1 ([facility]) Name Value Range Interpretation Code Description Data Ximena rce(s) Supporting Document(s) 2.400 0.358-3.740 THYROID STIMULATING HORM ONE eCW1 ([facility]) 0.93 0.76-1.46 FREE T4 eCW1 ([facility]) ID Date Data Source Comprehensive Metabolic Profile (CMP) 05/11/2021 12:00:00 AM EDT eCW1 ([facility]) Name Value Range Interpretation Code Description Data Ximena rce(s) Supporting Document(s) 91 70-100 GLUCOSE, FASTING eCW1 ([facility]) 0.68 0.55-1.30 CREATININE FOR GFR eCW1 (Critical access hospital) 23 7-18 BLOOD UREA NITROGEN eCW1 (Counts include 234 beds at the [facility]) 4.8 3.5-5.1 POTASSIUM SERUM eCW1 ([facility]) > 60.0 >39 GLOMERULAR FILTRATION RATE eCW 1 ([facility]) 139 136-145 SODIUM LEVEL eCW1 ([facility]) 29 21-32 CARBON DIOXIDE LEVEL eCW1 ([facility]) 105 98-107 CHLORIDE LEVEL eCW1 ([facility]) 7.9 8.8-10.2 CALCIUM LEVEL eCW1 ([facility]) 29 7-37 AST/SGOT eCW1 ([facility]) 34 12-78 ALT/SGPT eCW1 ([facility]) 0.3 0.2-1.0 BILIRUBIN,TOTAL eCW1 ([facility]) 139 45-117 ALKALINE PHOSPHATASE eCW1 ([facility]) 6.0 6.4-8.2 TOTAL PROTEIN eCW1 ([facility]) 1.3 1.2-2.2 ALBUMIN/GLOBULIN RATIO eCW1 ([facility]) 3.4 3.2-5.2 ALBUMIN eCW1 ([facility]) ID Date Data Source [id number] 03/20/2021 11:00:00 AM EDT [facility] Name Value Range Interpretation Code Description Data Ximena rce(s) Supporting Document(s) SARS-CoV-2 (COVID-19) RNA [Presence] in Respiratory specimen by GELY with probe detection Not Detected [facility] This lab was ordered by [facility] and reported by [employer]. ID Date Data Source [id number] 01/27/2021 03:49:07 PM EDT [facility] MR LUMBAR SPINE WITHOUT CONTRAST [id number] NAL RESULTInterpreted by:Hiro Fischer MDEXAMINATION: MR LUMBAR SPINE WITHOUT CONTRAST [id number] - PARESTHESIA OF SKIN, RIGHT LEG PAIN, [...] rce(s) Supporting Document(s) ID Date Data Source [facility] Foot, complete 01/09/2021 12:00:00 AM EDT eCW1 ([facility]) Name Value Range Interpretation Code Description Data Ximena rce(s) Supporting Document(s) [facility] Foot, complete eCW1 (Critical access hospital) ID Date Data Source [facility] Chest, 2 view (PA\\Lat) 01/09/2021 12:00:00 AM EDT eCW1 ( [facility]) Name Value Range Interpretation Code Description Data Ximena rce(s) Supporting Document(s) [facility] Chest, 2 view (PA\\Lat) eCW 1 ([facility]) ID Date Data Source [facility] Hand, complete 01/09/2021 12:00:00 AM EDT eCW1 ([facility]) Name Value Range Interpretation Code Description Data Ximena rce(s) Supporting Document(s) [facility] Hand, complete eCW1 (Critical access hospital) ID Date Data Source CYCLIC CITRULLINATED PEPTIDE 01/07/2021 12:00:00 AM EDT eCW1 ([facility]) Name Value Range Interpretation Code Description Data Ximena rce(s) Supporting Document(s) 3 0-19 CYCLIC CITRULLINATED PEPTIDE e CW1 ([facility]) ID Date Data Source VITAMIN D 1,25 DIHYDROXY 01/07/2021 12:00:00 AM EDT eCW1 ([facility]) Name Value Range Interpretation Code Description Data Ximena rce(s) Supporting Document(s) 49.5 19.9-79.3 VITAMIN D 1,25 DIHYDROXY eCW1 ([facility]) ID Date Data Source Hepatitis B Surf AB Quant 01/07/2021 12:00:00 AM EDT eCW1 ([facility]) Name Value Range Interpretation Code Description Data Ximena rce(s) Supporting Document(s) <3.1 Immunity>9.9 HEPATITIS B SURF AB LUDIVINA NT eCW1 ([facility]) ID Date Data Source ANTI-SJOGRENS A&B ANTIBODIES 01/07/2021 12:00:00 AM EDT eCW1 ([facility]) Name Value Range Interpretation Code Description Data Ximena rce(s) Supporting Document(s) <0.2 0.0-0.9 SSA SJOGRENS A eCW1 ([facility]) <0.2 0.0-0.9 SSB SJOGRENS B eCW1 ([facility]) ID Date Data Source HEPATITIS B CORE ANTIBODY IGG 01/07/2021 12:00:00 AM EDT eCW 1 ([facility]) Name Value Range Interpretation Code Description Data Ximena rce(s) Supporting Document(s) Negative Negative HEPATITIS B CORE ANTIBODY IGG eCW1 ([facility]) ID Date Data Source ANTI DOUBLE STRAND DNA ADDIE 01/07/2021 12:00:00 AM EDT eCW1 ( [facility]) Name Value Range Interpretation Code Description Data Ximena rce(s) Supporting Document(s) ANTI DOUBLE STRAND DNA ADDIE eCW 1 ([facility]) ID Date Data Source ANTI GERALD EXTRACTABLE NUCLEAR A 01/07/2021 12:00:00 AM EDT eC W1 ([facility]) Name Value Range Interpretation Code Description Data Ximena rce(s) Supporting Document(s) < 0.2 0.0-0.9 SMITHS ANTIBODY eCW1 ([facility]) < 0.2 0.0-0.9 JEWISH HISTORY PROFESSOR ANTIBODY eCW1 ([facility]) ID Date Data Source ANGIOTENSIN 1 CONVERTING ENZYM 01/07/2021 12:00:00 AM EDT eC W1 ([facility]) Name Value Range Interpretation Code Description Data Ximena rce(s) Supporting Document(s) 18 14-82 ANGIOTENSIN 1 CONVERTING ENZYM eCW1 ([facility]) ID Date Data Source ANCA Panel with MPO & PR3 01/07/2021 12:00:00 AM EDT eCW1 ([facility]) Name Value Range Interpretation Code Description Data Ximena rce(s) Supporting Document(s) Myeloperoxidase Ab [Units/volume] in Serum <9.0 0.0-9.0 Antimyeloperxidase(MPO) Abs eCW1 ([facility]) Proteinase 3 Ab [Units/volume] in Serum <3.5 0.0-3.5 Antiproteinase 3 (NE-3) Abs eCW1 ([facility]) Neutrophil cytoplasmic Ab.classic [Titer] in Serum by Immuno fluorescence <1:20 Neg:<1:20 Cytoplasmic (C-ANCA) eCW1 ([facility]) Neutrophil Cytoplasmic Ab atypical [Presence] in Serum by Immunofluorescence <1:20 Neg:<1:20 Atypical pANCA eCW1 ([facility]) Neutrophil cytoplasmic Ab.perinuclear [Titer] in Serum by Immunofluorescence <1:20 Neg:<1:20 Perinuclear (P-ANCA) eCW1 ([facility]) ID Date Data Source VITAMIN D 25-HYDROXY 01/07/2021 12:00:00 AM EDT eCW1 ([facility]) Name Value Range Interpretation Code Description Data Ximena rce(s) Supporting Document(s) 42.5 30.0-100.0 TOTAL 25(OH) VITAMIN D eC W1 ([facility]) ID Date Data Source HEPATITIS C ANTIBODY INDEX 01/07/2021 12:00:00 AM EDT eCW1 ( [facility]) Name Value Range Interpretation Code Description Data Ximena rce(s) Supporting Document(s) < 0.0 <0.8 HEPATITIS C VIRUS ADDIE IND EX eCW1 ([facility]) ID Date Data Source ERYTHROCYTE SEDIMENTATION RATE 01/07/2021 12:00:00 AM EDT eC W1 ([facility]) Name Value Range Interpretation Code Description Data Ximena rce(s) Supporting Document(s) 23 0-20 ERYTHROCYTE SEDIMENTATION RATE eCW1 ([facility]) ID Date Data Source C REACTIVE PROTEIN QUANTITATIV (At [facility]) 01/07/2021 12:00 :00 AM EDT eCW1 ([facility]) Name Value Range Interpretation Code Description Data Ximena rce(s) Supporting Document(s) 0.30 0.00-0.30 C REACTIVE PROTEIN QUANTI TATIV eCW1 ([facility]) ID Date Data Source CBC with Differential 01/07/2021 12:00:00 AM EDT eCW1 ([facility]) Name Value Range Interpretation Code Description Data Ximena rce(s) Supporting Document(s) 5.6 4.0-10.0 WHITE BLOOD COUNT eCW1 (Critical access hospital) 36.4 42.0-52.0 HEMATOCRIT eCW1 (Critical access hospital) 11.5 13.5-17.5 HEMOGLOBIN eCW1 (Critical access hospital) 4.00 4.30-6.10 RED BLOOD COUNT eCW1 ([facility]) 31.6 32.0-36.5 MEAN CORPUSCULAR HGB CONC eCW1 ([facility]) 28.8 27.0-33.0 MEAN CORPUSCULAR HEMOGLOB IN eCW1 ([facility]) 91.0 80.0-96.0 MEAN CORPUSCULAR VOLUME e CW1 ([facility]) 62.1 36.0-66.0 NEUTROPHILS % eCW1 ([facility]) 15.1 11.5-14.5 RED CELL DISTRIBUTION WID TH eCW1 ([facility]) 264 150-450 PLATELET COUNT, AUTOMATED eCW1 ([facility]) 1.6 0.0-3.0 EOS % eCW1 ([facility]) 22.2 24.0-44.0 LYMPH % eCW1 ([facility]) 13.2 2.0-8.0 MONO % eCW1 ([facility]) 3.5 1.5-8.5 NEUTROPHILS # eCW1 ([facility]) 0.5 0.0-1.0 BASO % eCW1 ([facility]) 1.2 1.5-5.0 LYMPH # eCW1 ([facility]) 0.1 0.0-0.5 EOS # eCW1 ([facility] Health) 0.7 0.0-0.8 MONO # [facility]CW1 ([facility]) 0.0 0.0-0.2 BASO # eCW1 ([facility]) ID Date Data Source [id number] 12/16/2020 09:16:10 PM EDT [facility] Name Value Range Interpretation Code Description Data Ximena rce(s) Supporting Document(s) &PDF [facility] MYVNCc6nAqCURrVs44/GCAuoNHKnz7KaPAmsLHt1VZyoWCSoB8LmbWxxUPlOVofIPD9vAJMWOK1oQx2v pYy [file] AgICAgICAgICAgICAgICAgICAgICAgICAgICAgICAgICAgICAgICAgICAgICAgICAgICAgICAgICAgIC AgICAgICAgDQogICAgICAgICAgICAgICAgICAgICAg ICAgICAgICAgICAgICAgICAgICAgICAgICAgICAgICAgICAgICAgICAgICAgICAgICAgICAgICAgICAg ICAgICAgICAgICAgICAgICAgDQogICAgICAgICAgICAgICAgICAgICAgICAgICAgICAgICAgICAgICAg ICAgICAgICAgICAgICAgICAgICAgICAgICAgICAgIC AgICAgICAgICAgICAgICAgICAgICAgICAgICAgDQogICAgICAgICAgICAgICAgICAgICAgICAgICAgIC AgICAgICAgICAgICAgICAgICAgICAgICAgICAgICAgICAgICAgICAgICAgICAgICAgICAgICAgICAgIC AgICAgICAgICAgDQogICAgICAgICAgICAgICAgICAg ICAgICAgICAgICAgICAgICAgICAgICAgICAgICAgICAgICAgICAgICAgICAgICAgICAgICAgICAgICAg ICAgICAgICAgICAgICAgICAgICAgDQogICAgICAgICAgICAgICAgICAgICAgICAgICAgICAgICAgICAg ICAgICAgICAgICAgICAgICAgICAgICAgICAgICAgIC AgICAgICAgICAgICAgICAgICAgICAgICAgICAgICAgDQogICAgICAgICAgICAgICAgICAgICAgICAgIC AgICAgICAgICAgICAgICAgICAgICAgICAgICAgICAgICAgICAgICAgICAgICAgICAgICAgICAgICAgIC AgICAgICAgICAgICAgDQogICAgICAgICAgICAgICAg ICAgICAgICAgICAgICAgICAgICAgICAgICAgICAgICAgICAgICAgICAgICAgICAgICAgICAgICAgICAg ICAgICAgICAgICAgICAgICAgICAgICAgDQogICAgICAgICAgICAgICAgICAgICAgICAgICAgICAgICAg ICAgICAgICAgICAgICAgICAgICAgICAgICAgICAgIC AgICAgICAgICAgICAgICAgICAgICAgICAgICAgICAgICAgDQogICAgICAgICAgICAgICAgICAgICAgIC AgICAgICAgICAgICAgICAgICAgICAgICAgICAgICAgICAgICAgICAgICAgICAgICAgICAgICAgICAgIC QqPTRvANKtMWVxFQMrLZKaFZo7I6pkXOYpYVRpZP8b EEk9Oe5+TQzGYmZnOSA5ltVeyS7FOK5ch2KmXEynKJLxs2VdIIm7UL3LWJCxVAnzWW6SEEthhv5HPVQc CQZmxLYDv1jmJrXjCSD7QEDjYvoqRO3XZMKpB5zwslKwIZJcXBCJBP7UNsAcP5XxyS56WQOERe3+DQpl amLjSnaVKuC7SSWbk0MyQNh5TK5YKOYnTGkiDA6NVB QwdL4cTJstWD8DOiVzLJHxRGLWTxRgA21fdGSbHLo5Q0LxRbMnHOIjUaknPLSoPOqtVnHxLLNdGwFcLZ ogID4+ID4+DLlhEM7CPDhdrmJsRGRwXr4TERVkLOM8LWQsiTQtDDBlUFVJQPilZY7EgIXuBSG4bY8tWY kgHGAdBLGfW0vKLhGmhJsrYA09jElakyUczZZtMGs+ Hg0XWE7mm2JyPWi0wsVnRRzmUED7UTklIBHqYAImGKJpWEZ3JHJ3ERQBVzXcQGThTRDzGLpoKBEaWLRw pd9GWEInLVKcKVV5IyErAJHpFJJwDBkeYMDbNHM5Qye7ZFToUPSjGM7AKeIbMKBeBCYzTZwkFXXqTYTk tp9PLFIwDGRmUvLzCRIwDZUlRREzRDzlEMFmMFEeNx Z9HGWtGXXtIC6RIgIdEILjATE4ZWruTVYyYDUabw3YRMWqNZLiZyg7NBLrXDRcYLIgMTyhWSPaLGKyDC r7WZByWXRcNE7QUmHnKYYtBOD3GtPgIJPxYPAnpo1ZNYBqFZZbZUMxXKLkDQDbUUNdSXbbLORcZXF8Gq UcQOSbMCMoUJ1FTgNqTDVjNGZmHMLvRKDsIZEsyc5Q MGWiZGHlIVFbWBEwSUPzQSAuLBgzGPDlHAM9OMQ9PDTmDZIfLT5ETvBfQWBbXFY7DWUxWFMcROPohv7N oPWdwBnnkw8TOGxZLt9AfGjgMUM8OWcqMm5mzABbTeLnZELUXo6GzkLyFBHpESLSXQvwLPCeHPUsPXIt PxYhB7BnC7YcCPd0EmO5AiZcDZHlJKj4LUitFfD0Nc OqWKN1MRN2LdJsUPB2VIvfOqdyERY2NTXhHakkMmN+ET9xVIn+Oi1Rg7YysfB7uaTdVAyeKbI9MJ3CTX PED3XRCv== ID Date Data Source [id number] 10/29/2020 02:38:00 PM EST [facility] ([facility]) Name Value Range Interpretation Code Description Data Ximena rce(s) Supporting Document(s) IgG P93 AB Laboratory test result [facility] ([facility], ) IgG P66 AB Laboratory test result [facility] ([facility], ) IgG P45 AB Laboratory test result [facility] ([facility]) IgG P41 AB Laboratory test result Abnormal (applies to non -numeric results) [facility] ([facility], ) IgG P58 AB Laboratory test result [facility] IgG P30 AB Laboratory test result [facility] ([facility]) IgG P39 AB Laboratory test result [facility] ([facility]) IgG P23 AB Laboratory test result [facility] ([facility], ) IgG P28 AB Laboratory test result [facility] ([facility], ) IgG P18 AB Laboratory test result [facility] ([facility]) Lyme IgG WB Interpretation Laboratory test result [facility] ([facility]) Positive: 5 of the following Borrelia-specific bands: 18,23,28,30,39,41,45,58, 66, and 93. Negative: No bands or banding patterns which do not meet positive criteria. IgM P41 AB Laboratory test result [facility] ([facility]) IgM P23 AB Laboratory test result [facility] ([facility]) IgM P39 AB Laboratory test result [facility] ([facility]) Lyme IgM WB Interpretation Laboratory test result [facility] ([facility]) Note: An equivocal or positive EIA [...] are those recommended by CDC/ASTPHLD. p23=Osp C, n68=ycfvictzk . Note: Sera from individuals with the following may cross react in the Lyme Line Blot assays: other spirochetal diseases (periodontal disease, leptospirosis, rel apsing fever, yaws, and pinta); connective autoimmune (Rheumatoid Arthritis and Systemic Lupus Erythematosus and also individuals with Antinuclear Antibody); other infections ([place] Spotted Fever; Amena-Joseph Virus, and Cytomegalovirus). . ID Date Data Source [id number] 10/29/2020 02:38:00 PM EST [facility] ([facility]) Name Value Range Interpretation Code Description Data Ximena rce(s) Supporting Document(s) Antinuclear Antibodies Direct Laboratory test result [facility] ([facility]) Performed at: RN - [facility] [address] [id number] House Painting Instructor: Zeenat Omer MD, Phone: [phone] ID Date Data Source [id number] 10/29/2020 02:38:00 PM EST [facility] ([facility]) Name Value Range Interpretation Code Description Data Ximena rce(s) Supporting Document(s) Erythrocyte sedimentation rate by 2H Westergren method 21 mm/hr 0-2 0 [facility] ([facility]) Rheumatoid factor [Units/volume] in Serum or Plasma 47.2 IU/ml [facility] ([facility], ) ID Date Data Source [id number] 10/02/2020 04:22:00 PM EST [facility] [...] rce(s) Supporting Document(s) ID Date Data Source [id number] 09/29/2020 11:47:00 AM EST [facility] ([facility], ) Name Value Range Interpretation Code Description Data Ximena rce(s) Supporting Document(s) Thyroid Stimulating Hormone 1.240 uIU/ML 0.358-3.740 [facility] ([facility], ) Free T4 1.23 ng/dL 0.76-1.46 [facility] ([facility], ) ID Date Data Source [id number] 09/29/2020 11:47:00 AM EST [facility] ([facility]) Name Value Range Interpretation Code Description Data Ximena rce(s) Supporting Document(s) Blood Urea Nitrogen 27 mg/dL 7-18 [facility] ([facility], ) Glucose, Fasting 103 mg/dL 70-100 [facility] ([facility], ) Glomerular Filtration Rate Laboratory test result [facility] ([facility]) <content>Units are mL/min/1.73 m2</content>
<content></content>
<content>Chronic Kidney Disease Staging per NKF:</content>
<content></content>
<content>Stage I & II GFR >=60 Normal to Mildly Decreased</content>
<content>Stage III GFR 30- 59 Moderately Decreased</content>
<content>Stage IV GFR 15-29 Severely Decreased</content>
<content>Stage V GFR <15 Very Little GFR Left</content>
<content>ESRD GFR <15 on AREA SECRETARY</content>
<content></content> Creatinine For GFR 0.89 mg/dL 0.70-1.30 [facility] ([facility], ) Sodium Level 141 meq/L 136-145 [facility] ([facility]) Potassium Serum 4.4 meq/L 3.5-5.1 [facility] ([facility]) Carbon Dioxide Level 30 meq/L 21-32 [facility] ([facility]) Chloride Level 107 meq/L 98-107 [facility] ([facility]) Anion Gap 4 meq/L 8-16 [facility] ([facility], ) Calcium Level 8.7 mg/dL 8.8-10.2 [facility] ([facility]) Alt/SGPT 38 U/L 12-78 [facility] ([facility]) Ast/Sgot 28 U/L 7-37 [facility] ([facility]) Alkaline Phosphatase 124 U/L 45-117 [facility] ([facility]) Bilirubin,Total 0.4 mg/dL 0.2-1.0 [facility] ([facility]) Albumin 3.7 GM/DL 3.2-5.2 [facility] ([facility]) Total Protein 6.5 GM/DL 6.4-8.2 [facility] ([facility]) Albumin/Globulin Ratio 1.3 [facility] ([facility]) ID Date Data Source [id number] 09/29/2020 11:47:00 AM EST [facility] ([facility]) Name Value Range Interpretation Code Description Data Ximena rce(s) Supporting Document(s) White Blood Count 6.8 10 4.0-10.0 [facility] ([facility], ) Red Blood Count 4.52 10 4.30-6.10 [facility] ([facility]) Hemoglobin 12.7 g/dL 13.5-17.5 [facility] ([facility]) Hematocrit 41.2 % 42.0-52.0 [facility] Mean Corpuscular Volume 91.2 fl 80.0-96.0 M [facility] Mean Corpuscular Hemoglobin 28.1 pg 27.0-33.0 [facility] ([facility]) Mean Corpuscular HGB Conc 30.8 g/dL 32.0-36.5 [facility] ([facility]) Platelet Count, Automated 270 10 150-450 [facility] ([facility]) Nucleated Red Blood Cell % 0.0 % 0-0 [facility] ([facility]) Red Cell Distribution Width 14.5 % 11.5-14.5 [facility] ([facility]) ID Date Data Source CBC - Complete Blood Count 09/29/2020 12:00:00 AM EST eCW1 ( [facility]) Name Value Range Interpretation Code Description Data Ximena rce(s) Supporting Document(s) 41.2 42.0-52.0 [facility]CW[facility] ([facility]) 6.8 4.0-10.0 eCW1 ([facility]) 12.7 13.5-17.5 eCW1 ([facility]) 91.2 80.0-96.0 eCW1 ([facility]) 4.52 4.30-6.10 eCW1 ([facility]) 270 150-450 eCW1 ([facility]) 30.8 32.0-36.5 eCW[facility] ([facility]) 28.1 27.0-33.0 eCW[facility] ([facility]) 14.5 11.5-14.5 eCW[facility] ([facility]) ID Date Data Source [id number] 09/10/2020 02:35:00 PM EST [facility] Patient: FLORA MIJARES Observation Re [facility].VisitID: [id number] [place] [address] [phone], [facility] Date/Time: 08/25/2020 17:57 Weight:74.8 kg (S). Height/Length:61 inches (S). BMI:31.2 PAST HISTORYProblems:Coronary Artery Disease [Chronic].Heart Disease [Chronic].Hypertension [Chronic].Neuropathy [Chronic].Lung Disease [Chronic].COPD - Chronic Obstructive Pulmonary Disease [Chronic].Gastroesophageal Reflux Disease [Chronic].Myofascial Strain [Chronic].Atrial fibrillation.COPD - Chronic Obstructive Pulmonary Disease.Palpitations. Additional Surgeries:Appendectomy.Cardiac Catheterization.Cardiac Surgery. (Multiple stents)Colonoscopy.Coronary Artery Bypass Graft. (5 [id number])Endoscopy.Hernia Repair.Pacemaker.Tubal Ligation.Ventral Hernia repair . Medications:Metoprolol Tartrate [...] rce(s) Supporting Document(s) ID Date Data Source [id number] 08/25/2020 09:30:00 PM EST [facility] [...] rce(s) Supporting Document(s) ID Date Data Source [id number] 09/01/2020 08:15:00 AM EST [facility] Name Value Range Interpretation Code Description Data Ximena rce(s) Supporting Document(s) [facility] ID Date Data Source [id number] 09/01/2020 08:15:00 AM EST [facility] Name Value Range Interpretation Code Description Data Ximena rce(s) Supporting Document(s) [facility] ID Date Data Source [id number] 08/25/2020 07:35:00 PM EST [facility] Name Value Range Interpretation Code Description Data Ximena rce(s) Supporting Document(s) TSH 1.25 uIU/mL 0.36-3.74 [facility] ID Date Data Source [id number] 08/25/2020 07:24:00 PM EST [facility] Name Value Range Interpretation Code Description Data Ximena rce(s) Supporting Document(s) PARTIAL THROMBOPLASTIN TIME 22.9 SECONDS 21.2-27.3 [facility] ID Date Data Source [id number] 08/25/2020 07:24:00 PM EST [facility] Name Value Range Interpretation Code Description Data Ximena rce(s) Supporting Document(s) PROTHROMBIN TIME (PATIENT) 11.0 SECONDS 9.1-11.6 [facility] INR 1.06 0.87-1.06 [facility] ID Date Data Source [id number] 08/25/2020 07:24:00 [facility] Value Range Interpretation Code Description Data Ximena rce(s) Supporting Document(s) LACTIC ACID 0.7 mmol/L 0.4-2.0 [facility] ID Date Data Source [id number] 08/25/2020 07:24:00 PM [facility] Name Value Range Interpretation Code Description Data Ximena rce(s) Supporting Document(s) B-TYPE NATRIURETIC PEPTIDE 286 pg/ml 0-450 [facility] ID Date Data Source [id number] 08/25/2020 07:24:00 PM [facility] Name Value Range Interpretation Code Description Data Ximena rce(s) Supporting Document(s) MAGNESIUM 2.0 mg/dL 1.8-2.4 [facility] ID Date Data Source [id number] 08/25/2020 07:24:00 PM [facility] Name Value Range Interpretation Code Description Data Ximena rce(s) Supporting Document(s) TROPONIN I < 0.017 ng/mL 0.0-0.056 [facility] ID Date Data Source [id number] 08/25/2020 07:24:00 PM [facility] Name Value Range Interpretation Code Description Data Ximena rce(s) Supporting Document(s) LIPASE 69 U/L 73-393 L [facility] ID Date Data Source [id number] 08/25/2020 07:24:00 PM [facility] Name Value Range Interpretation Code Description Data Ximena rce(s) Supporting Document(s) GLUCOSE 93 mg/dL 74-106 [facility] BLOOD UREA NITROGEN 26 mg/dL 7-[address] [facility] ital CREATININE 0.9 mg/dL 0.6-1.0 [facility] GLOMERULAR FILTRATION RATE 61 mL/min [facility] GFR IS CALCULATED IN mL/min/1.73m2 AGNIESZKA L FUNCTION: >90MILDLY DECREASED: 60-89MILDY TO MODERATELY DECREASED: 45-59 MODERATELY TO SEVERELY DECREASED: 30-44SEVERELY DECREASED: 15-29RENAL FAILURE: <15 AST 29 U/L 15-37 [facility] ALT 46 U/L 12-78 [facility] ALKALINE PHOSPHATASE 117 U/L 46-116 [facility] TOTAL BILIRUBIN 0.5 mg/dL 0.2-1.0 [facility] TOTAL PROTEIN 7.2 g/dl 6.4-8.2 [facility] ALBUMIN 3.8 gm/dL 3.4-5.0 [facility] ID Date Data Source [id number] 08/25/2020 07:17:00 PM [facility] Name Value Range Interpretation Code Description Data Ximena rce(s) Supporting Document(s) WHITE BLOOD COUNT 7.5 K/mm3 4.0-10.0 [facility] al RED BLOOD COUNT 4.48 M/mm3 4.00-5.50 [facility] HEMOGLOBIN 13.1 gm/dL 12.0-16.0 [facility] HEMATOCRIT 40.0 % 36.0-48.8 [facility] MEAN CELL VOLUME 89.3 fl 80-96 [facility] MEAN CORPUSCULAR HEMOGLOBIN 29.2 pg 27.0-31.0 [facility] MEAN CORPUSCULAR HGB CONC 32.8 g/dl 32.0-36.0 [facility] RED CELL DISTRIBUTION WIDTH 15.6 % 10.0-14.5 H [facility] PLATELET COUNT 296 K/mm3 172-450 [facility] MEAN PLATELET VOLUME 9.3 fl 9.0-13.0 [facility] pital GRAN % 69.5 % 50-80.0 [...] / [facility] ID Date Data Source [id number] 08/13/2020 10:29:24 AM EST [facility] Name Value Range Interpretation Code Description Data Ximena rce(s) Supporting Document(s) &PDF [facility] NQGZGa0zIkLYZjWs69/GUHddHEJew7LqNSciKSt7QArgABAbY5DcfPkdJOzOCdpFXE6fKGPTZX0aJLRz waW [file] [id number]= ID Date Data Source [id number] 07/28/2020 09:44:08 AM EST [facility] Name Value Range Interpretation Code Description Data Ximena rce(s) Supporting Document(s) EKG [facility] EUKTYs2mJlDRPxFth4JcYxQnXVMlMO1bugu1H0E7uXMeJ2NkpSJyp4gqF1XpJ2CsQYPuUQGGRY9BlKGj jb2 [file] 7vS/ZKrZPfsA4SBe/[place]/NwW5yPZh1IRblUI4hOeShV1/cL3Eev54MliJxcGjU4ORoypJ7sve18yScDz [file] QuWHBdAHKKSa7Qe937HFIcOYWVGse+QelnrZTeiBtgXBWAROC6ZaMLEMAYA7W= ID Date Data Source [id number] 07/28/2020 09:35:14 AM EST [facility] NT INFORMATIONPatient MRN Name Date of Age Gend*PT [id number] Flora Mijares 1940 79 years F IPPT Location Admission Date/Time Visit ID Attending [id number] 07/23/202045 --- Kai Dahl MD([id number]) EPI ID CSN Admitting Provider [id number] Pauline Hernandez MD([id number]) [facility] DISCHARGE SUMMARYPatient Name: Flora Mijares of : 1940 Age 79 yearsPrimary Physician: HELIO ZABALA MD PCP Kokmbnzni Date: 07/23/2020 Discharge Date:She will be discharged from [facility] to [facility] Diagnoses:Principal Problem:Symptomatic bradycardia status post PPM [...] by mouth 2 (two) times a dayUmeclidinium [place] (INCRUSE ELLIPTA) 62.5 MCG/INH AEPB Inhale 1 [...] mental status, speech normal, alert and oriented v8Iwogppkdrvg:Imaging:Chest x-ray post pacemaker placementIMPRESSION: No pneumothorax or [...] rce(s) Supporting Document(s) ID Date Data Source [id number] 07/28/2020 07:57:42 AM EST [facility] Name Value Range Interpretation Code Description Data Ximena rce(s) Supporting Document(s) SODIUM 138 mmol/L (136-145) [facility] POTASSIUM 4.5 mmol/L (3.6-5.2) [facility] CHLORIDE 103 mmol/L (100-108) [facility] CO2 28 mmol/L (22-31) [facility] ANION GAP 7 mmol/L (7-16) [facility] UREA NITROGEN 24 mg/dL (7-24) [facility] CREATININE 0.52 mg/dL (0.60-1.00) L [facility] BUN/CREAT RATIO 46.2 RATIO (10.0-20.0) H [facility] GLUCOSE 106 mg/dL (70-99) H [facility] CALCIUM 8.5 mg/dL (8.4-10.2) [facility] GFR >60 ml/min/1.73m2 (>59) [facility] GFR ( AMER) >60 ml/min/1.73m2 (>59) [facility] GFR INTERPRETATION [facility] --NORMAL KIDNEY FUNCTION OR MILD DISEASE - GFR >OR= 60CHRONIC KIDNEY DISEASE - GFR 15 - 59RENAL FAILURE - GFR <15 Est. GFR calculation based on the MDRDstudy equation, which assumes a steadystate for creatinine. Est. GFR should notbe used for medication dosing. ID Date Data Source [id number] 07/28/2020 07:22:26 AM EST [facility] Name Value Range Interpretation Code Description Data Ximena rce(s) Supporting Document(s) WBC 5.7 10*3/uL (4.1-11.0) [facility] RBC 3.60 10*6/uL (4.00-5.40) L [facility] HGB 10.5 g/dL (12.0-16.0) L [facility] HCT 31.0 % (36.0-47.0) L [facility] MCV 86.3 fL (80.0-95.0) [facility] MCH 29.1 pg (27.0-32.0) [facility] MCHC 33.7 g/dL (32.0-36.0) [facility] RDW 15.5 % (10.5-14.5) H [facility] PLT 207 10*3/uL (150-450) [facility] MPV 7.4 fL (7.1-10.7) [facility] ID Date Data Source [id number] 07/27/2020 12:24:10 PM EST [facility] Name Value Range Interpretation Code Description Data Ximena rce(s) Supporting Document(s) &PDF [facility] CLZMNu2bXiTIYtMm13/MVPnyXXNgc8YyZKrwZOv2VHyyFYMrV4EojYbmNHqNAveAUK4uBRHYJU9fGGDk pYy [file] xtZzVM6xqD51ipys/[employer]p [employer]/kv4DNzDyQK4YxkPAQWEkmy0RmMW2o9OX1mZEkjXxc5CM2qjjIBAtLiXTP0ku [file] JJmNU6/LUZ ELENA+K1HoE5DqCTCWKk0hb/7Ezm12n1fSZ3gbZE0ZTCvVlrPqJNiPhBxNfTW1mcnM2Jg8PvWrR [file] wEEtFqEH3NHVf= ID Date Data Source [id number] 07/27/2020 10:33:50 AM EST [facility] NT INFORMATIONPatient MRN Name Date of Age Gend*PT [id number] Flora Mijares 1940 79 years F OBSPT Location Admission Date/Time Visit ID Attending [id number] 07/23/202045 --- Kai Dahl MD([id number]) EPI ID CSN Admitting Provider [id number] Pauline Hernandez MD([id number]) [facility] DISCHARGE SUMMARYPatient Name: Flora Mijares of : 1940 Age 79 yearsPrimary Physician: HELIO ZABALA MD PCP Wragdwevz Date: 07/23/2020 Discharge Date:She will be discharged from [facility] to [facility] Diagnoses:Principal Problem:Symptomatic bradycardia status post PPM [...] by mouth 2 (two) times a dayUmeclidinium [place] (INCRUSE ELLIPTA) 62.5 MCG/INH AEPB Inhale 1 [...] mental status, speech normal, alert and oriented w1Xiozpdfslpx:Imaging :Chest x-ray post pacemaker placementIMPRESSION: No pneumothorax [...] rce(s) Supporting Document(s) ID Date Data Source [id number] 07/27/2020 07:13:46 AM EST [facility] Name Value Range Interpretation Code Description Data Ximena rce(s) Supporting Document(s) EKG [facility] ZJPMAq2eKkHRSvDmy9PiAdWyHZQhQM1jdvt6V0N9kVEqO4DedMTnc9zjM9PtG2CqPRYxBIMVFG2FxXTn jb2 [file] fi8/Supervisor Rework+HfxU+7ZB/lfgUln+WZYUD5KXfJ/PKuy8CL3 7DYsrlEMMeo4BTC02g8XTIUgj807SIyl65Wfu3IhSWwpSh5jy/OPc66hpHYm01kAMPv30rcVXzhgw5+N eW65LpKp5Xb92w7EZQqAOV8PVZcE8/CLG7Jf5FNcX8IB7w4Hl9DCrVRrzi8a4rB4o5wdFFz8W5DFVdf3 Icfcsvzfpq3H1pj68PS8X0Ult8Kxf1BbC+1zdo1055 z4Mv3LOazD9k4ww2Szw4SidejThuWIlZfkRcTZqiJs8sBZ2f2S7PWVR9YOwN5oEsC7hGdetvUD5jBppQ HbjevxP+1YR/NeFfTfhXE/2LuY860A8D+FcT/eYYaaJyK81sY66Lf4BTGZ8skSh9GYqzGv9EMrzyrekb sU86Lzt/StyADbgDD+AJvIAhF+vDw6VjdZ4TdDZQJj +290L0R8RkPB8Y1M5O/s0525N0gyLa8tw/dsq/Mn0+gCd+o4N2vEETCewxAwIjgSW2OxGk3An3mZCh0S 5ycFxbyEgknUzcrsnnFZeU3J1QY0sQE8Q2gyIyZQzOj8T1A1npJar8oyFoIGagL2rwcBeidWnnHc95D+ 731Hx/yl7F+wE3f8RwvD8c7Dqfr/n85DB5Xr8Ywwad td1WB09r0xjKZ/7G0vpV+JRmzWA7rlorFH/tQvKhi39VaF+vsFda+11hr+TjrbBXM/yZFfZqhW+2wl4t 8Fy1Gm0wMiwuA9wKdLDcg2OyylwW+EOak5taL/TjX1zs9vFcT5mOv9blQ92poFUp0Ulm4u3kvwsAzmCm 57p9w6xa9RJWcuxT7Vai0qd7jqAoDg2ciH1G2Qfurb 1e30UTla1r7SaruV8sdXW+yCUj3poMz75cYg/vOv26KB/LshnA09OobEBZXyZdqdCMVNFq8TWsJderbW 6iF49bFQm/vGSvEpf/lYqLn9n2Y/WF/OqLt1PHvn46Ox2B8/sWQVeNUM8NKscFPlEe2M1kkAvpyiS9Fv QjsWsiMsHVxwGiHsdTCg1Nn+PWOrB+g7Qg1Ajs98Yz 5atx4doKCb8IUmeRX+BSbPKQmkbGD8Vp4bQfyLt9XvCAzi25tF+du0woYj7MegcsJk936a9599d3+k72 Sv1+qx67v7lf5flYMwRF3/11nH1oCL/a8K/2U++F/WblJ272uu7DlTK04GEwbgzZO0dIo0TZAm4p0yIm sM4Zjo4gqt5T28G/hvs13K/lctvlw5v5USgA1uLt59 948ba5Gbao+Bh0OKRIJ/9qw7/a8K82/KsN/6nNh9xxf/ao9++kL0YTGfBXB2pynjcrlogs7ieDXLznK5 nnvRowxvPqwLVOuFetb+m8m8S5aGXRhwzyR8OLbdRSgLO9P+XDvMS9MW41649j4Yv/gee815H/8K82/K cu9P6xRz44d0+Wd6l6sq9h+VeyIafWc/Jh9S16pZev We47wsQOtwXhMT9YBhuBc603+Ff+STOCK CONTROL CLERK/6U/4vDr14NhffSH9KRgdCT/AEXsCQi/O5c9IyyTiPt5CphYyP j8AokKvZrhVh4JdHjk92Ixe2n7v/Cj/KZa/y66Hd9o0hU1/QMR/6Cf4Mw08r/NvBI2bv32pMHai+yj67 4hnive+OBmdx0NCXXM8vr22Txm+VpVGl1HNstvg2V7 [place]/RdTdpdl7c79riq3FsRo/HgH1kQ9MEaAn9n/FhdP+zVCX/bFc+mh0dmFrH2mYIZTx2Y7o0G/uHwn8 [file] MCBSCgo+FvqfbFOlyKneTCZZLKRjRENTOYEEM4Y= ID Date Data Source [id number] 07/27/2020 07:09:09 AM EST [facility] Name Value Range Interpretation Code Description Data Ximena rce(s) Supporting Document(s) SODIUM 138 mmol/L (136-145) [facility] POTASSIUM 4.1 mmol/L (3.6-5.2) [facility] CHLORIDE 102 mmol/L (100-108) [facility] CO2 28 mmol/L (22-31) [facility] ANION GAP 8 mmol/L (7-16) [facility] UREA NITROGEN 33 mg/dL (7-24) [facility] CREATININE 0.62 mg/dL (0.60-1.00) [facility] BUN/CREAT RATIO 53.2 RATIO (10.0-20.0) [facility] GLUCOSE 116 mg/dL (70-99) [facility] CALCIUM 8.9 mg/dL (8.4-10.2) [facility] GFR >60 ml/min/1.73m2 (>59) [facility] GFR ( AMER) >60 ml/min/1.73m2 (>59) [facility] GFR INTERPRETATION [facility] --NORMAL KIDNEY FUNCTION OR MILD DISEASE - GFR >OR= 60CHRONIC KIDNEY DISEASE - GFR 15 - 59RENAL FAILURE - GFR <15 Est. GFR calculation based on the MDRDstudy equation, which assumes a steadystate for creatinine. Est. GFR should notbe used for medication dosing. ID Date Data Source [id number] 07/27/2020 06:35:12 AM EST [facility] Name Value Range Interpretation Code Description Data Ximena e(s) Supporting Document(s) WBC 6.3 10*3/uL (4.1-11.0) [facility] RBC 3.75 10*6/uL (4.00-5.40) L [facility] HGB 11.2 g/dL (12.0-16.0) [facility] HCT 32.0 % (36.0-47.0) [facility] [place] [address] [place] [id number] MCV 85.2 fL (80.0-95.0) [facility] MCH 29.7 pg (27.0-32.0) [facility] MCHC 34.9 g/dL (32.0-36.0) [facility] RDW 15.5 % (10.5-14.5) [facility] PLT 203 10*3/uL (150-450) [facility] MPV 7.4 fL (7.1-10.7) [facility] ID Date Data Source [id number] 07/26/2020 11:33:04 AM EST [facility] Name Value Range Interpretation Code Description Data Ximena rce(s) Supporting Document(s) APTT 24.9 s (22.0-34.3) [facility] ID Date Data Source [id number] 07/26/2020 11:33:04 AM EST [facility] Name Value Range Interpretation Code Description Data Ximena rce(s) Supporting Document(s) PT 10.6 s (9.2-11.9) [facility] INR 1.01 [facility] SUGGESTED THERAPEUTIC RANGES USING INR F ORSTABILIZED ANTICOAGULATED PATIENTS:STANDARD DOSE THERAPY INR 2.0-3.0 DVT, PE, PREVENT DVT OR EMBOLISMHIGH DOSE THERAPY INR 2.5-3.5 PREVENT EMBOLISM FROM MECHANICAL HEART VALVE ID Date Data Source [id number] 07/26/2020 10:25:03 AM EST [facility] INFORMATIONPatient MRN Name Date of Age Gend*PT [id number] Flora Mijares 1940 79 years F OBSPT Location Admission Date/Time Visit ID Attending ProviderD-[id number] 07/23/202045 --- Kai Dahl MD([id number]) EPI ID CSN Admitting Provider [id number] Pauline Hernandez MD([id number]) [facility] DISCHARGE SUMMARYPatient Name: Flora Mijares of : 1940 Age 79 yearsPrimary Physician: HELIO ZABALA MD PCP Diatxqyib Date: 07/23/2020 Discharge Date:She will be discharged from [facility] to [facility] Diagnoses:Principal Problem:Symptomatic bradycardia status post PPM [...] by mouth 2 (two) times a dayUmeclidinium [place] (INCRUSE ELLIPTA) 62.5 MCG/INH AEPB Inhale 1 [...] mental status, speech normal, alert and oriented s4Rzwynjswzim:Imaging:Chest x-ray post pacemaker placementIMPRESSION: No pneumothorax or [...] rce(s) Supporting Document(s) ID Date Data Source [id number] 07/26/2020 09:09:03 AM EST [facility] NT INFORMATIONPatient MRN Name Date of Age Gend*PT [id number] Flora Mijares 1940 79 years F OBSPT Location Admission Date/Time Visit ID Attending ProviderD-[id number] 07/23/202045 --- Kai Dahl MD([id number]) EPI ID CSN Admitting Provider [id number] Pauline Hernandez MD([id number]) [facility] DISCHARGE SUMMARYPatient Name: Flora Mijares of : 1940 Age 79 yearsPrimary Physician: HELIO ZABALA MD PCP Obsnzbdgv Date: 07/23/2020 [facility]oses:Principal Problem:Symptomatic bradycardia status post PPM [...] by mouth 2 (two) times a dayUmeclidinium [place] (INCRUSE ELLIPTA) 62.5 MCG/INH AEPB Inhale 1 [...] mental status, speech normal, alert and oriented m4Qtnpiqmwdvu:Imaging:Chest x-ray post pacemaker placementIMPRESSION: No pneumothorax or [...] rce(s) Supporting Document(s) ID Date Data Source [id number] 07/26/2020 06:49:38 AM EST [facility] Name Value Range Interpretation Code Description Data Ximena rce(s) Supporting Document(s) EKG [facility] TOBQDs0lEuKIEgYwa3CxHlHeQMYvAF2akrk5K9C6bHMpF8PkpXKbo3xtR7GkV3JySWQoDZMMTU9HmKXl jb2 [file] maker 4kmHy41rz94wo14no82jz28qXk16Qhmo/x3pIv2CI9CYz20Na/2vBXG+tXG+tXG+nX54TVsLf3syy4Um J22D930n8vd4aT92dog/W6w3/72Svczyw8J6P7fhuD [file] sKtuNVG9Yk6DpgTsADGtCXTRAc6Cj328UJBuTALJZoz+CivgeHKnyTyiWIPWONYpNeHENTHDQ0S= ID Date Data Source [id number] 07/26/2020 08:18:22 AM EST [facility] Name Value Range Interpretation Code Description Data Ximena rce(s) Supporting Document(s) SODIUM 138 mmol/L (136-145) [facility] POTASSIUM 3.8 mmol/L (3.6-5.2) [facility] CHLORIDE 101 mmol/L (100-108) [facility] CO2 28 mmol/L (22-31) [facility] ANION GAP 9 mmol/L (7-16) [facility] UREA NITROGEN 33 mg/dL (7-24) [facility] CREATININE 0.81 mg/dL (0.60-1.00) [facility] BUN/CREAT RATIO 40.7 RATIO (10.0-20.0) [facility] GLUCOSE 100 mg/dL (70-99) [facility] CALCIUM 8.6 mg/dL (8.4-10.2) [facility] GFR >60 ml/min/1.73m2 (>59) [facility] GFR ( AMER) >60 ml/min/1.73m2 (>59) [facility] GFR INTERPRETATION [facility] --NORMAL KIDNEY FUNCTION OR MILD DISEASE - GFR >OR= 60CHRONIC KIDNEY DISEASE - GFR 15 - 59RENAL FAILURE - GFR <15 Est. GFR calculation based on the MDRDstudy equation, which assumes a steadystate for creatinine. Est. GFR should notbe used for medication dosing. ID Date Data Source [id number] 07/26/2020 07:58:44 AM EST [facility] Name Value Range Interpretation Code Description Data Ximena rce(s) Supporting Document(s) WBC 6.1 10*3/uL (4.1-11.0) [facility] RBC 3.69 10*6/uL (4.00-5.40) L [facility] HGB 10.8 g/dL (12.0-16.0) L [facility] HCT 31.3 % (36.0-47.0) [facility] PERFORMED AT [address] [place] [address] [place] [address] MCV 84.8 fL (80.0-95.0) [facility] MCH 29.2 pg (27.0-32.0) [facility] MCHC 34.4 g/dL (32.0-36.0) [facility] RDW 15.3 % (10.5-14.5) [facility] PLT 209 10*3/uL (150-450) [facility] MPV 7.3 fL (7.1-10.7) [facility] ID Date Data Source [id number] 07/26/2020 05:49:43 AM EST [facility] Name Value Range Interpretation Code Description Data Ximena rce(s) Supporting Document(s) EKG [facility] GOQBMm1oHnITXqDmw4XzUdBpBPOoEY1kghe6B3G4lIPgG2TeiEHef7scB1XnZ1IhESQpPKOSAJ7OoFZx jb2 [file] LiBXXGF6Xpw3RfAHYrWWNRPz1+FoD2HYC3gHTiTyn0VstcNAnfVVQZLt== ID Date Data Source [id number] 07/25/2020 04:10:21 PM EDT [facility] Name Value Range Interpretation Code Description Data Ximena rce(s) Supporting Document(s) TROPONIN I <0.05 ng/mL (<0.05) [facility] Less than 0.05: Myocardial injury unlike lyGreater than or equal to 0.05: Highly suggestive of myocardial injuryCorrelation with rise and/or fall ofserial troponins, clinical symptomsand ECG changes is necessary. ID Date Data Source [id number] 07/25/2020 09:52:26 AM EDT [facility] NT INFORMATIONPatient MRN Name Date of Age Gend*PT [id number] Flora Mijares 1940 79 years F OBSPT Location Admission Date/Time Visit ID Attending [id number] 07/23/202045 --- Kai Dahl MD([id number]) EPI ID CSN Admitting Provider [id number] Pauline Hernandez MD([id number]) [facility] DISCHARGE SUMMARYPatient Name: Flora Mijares of : 1940 Age 79 yearsPrimary Physician: HELIO ZABALA MD PCP Drsmyucrz Date: 07/23/2020 [facility] Diagnoses:Principal Problem:Symptomatic bradycardia status post PPM [...] by mouth 2 (two) times a dayUmeclidinium [place] (INCRUSE ELLIPTA) 62.5 MCG/INH AEPB Inhale 1 [...] mental status, speech normal, alert and oriented k5Vrwbhtlyhug:Imaging:Chest x-ray post pacemaker placementIMPRESSION: No pneumothorax or [...] rce(s) Supporting Document(s) ID Date Data Source [id number] 07/25/2020 09:44:12 AM EDT [facility] Name Value Range Interpretation Code Description Data Ximena rce(s) Supporting Document(s) [facility] MXYEPl3mNuEFOqYod4QkKvZfUXZyPC5pvxj4F7H3iUPpQ3GsuWMpr1ouZ1HzG0VzFKVfQMZWQZ8YzYPy jb2 [file] Yagcfxgqxx+C4UVOJSx7OXftdguX797alowCXUJPdS QRK8pdBVXcJ9t+xbvAYi2NoL+epXMRHOxmSy0AvHkKEMGyyFzPGSErgX2rOIM69nWdH9nsajKatrkmEy TPUqdRvW0QWNaBqjOk/yYNwr5DHYdbuyDWyrglTCBJNDuU0TqN1F+JKXzJ7UYCjcfAwEYeA2djNoVz+r CLuGHJGwIskqnuOJxG9JBanmaGyKVHPBVlosUgK/pl Vi2rBtOdI8AeaXpI5YACfnlvkMHchb4fKA5/Ei2ZLWDxVdnA4z7J2lcqW/KFfsTfmIL46TCoeGG6bKiu XjIhymJPE+jamsYUPkVbA7mzio3pIzfBbp44tiLURecIMoJMomWFaVViaNdzunurOeG5oKYhW+ndal/p 3UtTiOvISu+ijOiqfDwxhXexEPb1eSHvXOc7LDkbOD u/zv+R1A/екатерина/ItXg+4ec8M+1Y35b7ZrGrqKb1+IpEw7i0DHsUF9NicDJ7aMCa0ra7U+2+v+puqkX6VH [file] 7Y5905Y4C9osxO7W8/fO2v224EO4+4z12D4AjWcyupuBh8yus2//kjR4t1M5txNBQYj0i8WJa/5V4d04 /nyZ5piD6Z6IW34IisX6KdpNu231cy+jPwf6c+D5Bp 4v/NbNeI3U/hyQC/9qpH+UzlluBl2jTevKVK2Us/9MS68uu3+UAvbI0Bl2O0eR0nM7j7mFb0Er2qD9Z4 edb+sJNPwZxXP+sVeR1z/2qq6f/oTgJu48REhzJ7czTy7d9pqW8vtkI9+/M+4J9Q1v2lqM+LTzzHNOO5 /v+0brr44byyG70f86ffU404MUgohMFKgGT9MGjmtr Ws+5L8ko2l88ocnkpy5gW7yf9j+i8gz7ir9I0EjRqnEef2Ai0Q864RYpPAqgwpsO6anK/c8E5C21VZA9 fYqhApaAVKEml575gApjv2/p7X44WvA84y5g++0T/tUs/yp/b813Rk3YZ/2r3Ec6/pjf8860tjl/z3Ho uy93+eoz/auV+2+entertainment reporter/nuy12+8FwUqO157sAdi23mJD bnBanYiuuESsww49+Sxog18TUNbm5/Leandro/R+zgY6/LYl0trkOYE2wjuVJ8Zthdf+BuJw76inFCoozLDV [file] Rg== ID Date Data Source [id number] 07/25/2020 09:24:57 AM EDT [facility] Name Value Range Interpretation Code Description Data Ximena rce(s) Supporting Document(s) SODIUM 138 mmol/L (136-145) [facility] POTASSIUM 4.0 mmol/L (3.6-5.2) [facility] CHLORIDE 101 mmol/L (100-108) [facility] CO2 28 mmol/L (22-31) [facility] ANION GAP 9 mmol/L (7-16) [facility] UREA NITROGEN 18 mg/dL (7-24) [facility] CREATININE 0.61 mg/dL (0.60-1.00) [facility] BUN/CREAT RATIO 29.5 RATIO (10.0-20.0) [facility] GLUCOSE 85 mg/dL (70-99) [facility] CALCIUM 8.9 mg/dL (8.4-10.2) [facility] GFR >60 ml/min/1.73m2 (>59) [facility] GFR ( AMER) >60 ml/min/1.73m2 (>59) [facility] GFR INTERPRETATION [facility] --NORMAL KIDNEY FUNCTION OR MILD DISEASE - GFR >OR= 60CHRONIC KIDNEY DISEASE - GFR 15 - 59RENAL FAILURE - GFR <15 Est. GFR calculation based on the MDRDstudy equation, which assumes a steadystate for creatinine. Est. GFR should notbe used for medication dosing. ID Date Data Source [id number] 07/25/2020 09:03:05 AM EDT [facility] Name Value Range Interpretation Code Description Data Ximena rce(s) Supporting Document(s) WBC 7.4 10*3/uL (4.1-11.0) [facility] RBC 4.04 10*6/uL (4.00-5.40) [facility] HGB 12.2 g/dL (12.0-16.0) [facility] HCT 35.2 % (36.0-47.0) L [facility] PERFORMED AT [address] [place] [address] [place] [address] MCV 87.3 fL (80.0-95.0) [facility] MCH 30.1 pg (27.0-32.0) [facility] MCHC 34.5 g/dL (32.0-36.0) [facility] RDW 15.1 % (10.5-14.5) [facility] PLT 218 10*3/uL (150-450) [facility] MPV 7.2 fL (7.1-10.7) [facility] ID Date Data Source [id number] 07/24/2020 09:36:55 PM EDT [facility] NT INFORMATIONPatient MRN Name Date of Age Gend*PT [id number] Flora Mijares 1940 79 years F OBSPT Location Admission Date/Time Visit ID Attending ProviderD-[id number] 07/23/202045 --- Kai Dahl MD([id number]) EPI ID CSN Admitting Provider [id number] Pauline Hernandez MD([id number])INPATIENT EP CONSULT NOTEPatient Name: Flora Mijares of : 1940 Age: 79 yearsGender: female Primary Physician: HELIO ZABALA, MDDate of Referral: 07/24/2020 PCP [id number] PHYSICIAN: Facundo Lockett M.D.REASON FOR REFFERAL: SSSHISTORY [...] sleep apnea) Palpitations 04/22/2019 Peripheral vascular disease CARDIAC SONOGRAPHER to renal artery Pharmacologic SPECT 05/10/2019 No [...] 07/13/2016 Seizure Spirometry 09/2017 96% FVC, 77% AJK1NCKZ SURGICAL HISTORY:Past Surgical History:Procedure Laterality Date APPENDECTOMY [...] normalPERTINENT LABS:Results from last 7 daysLab Units 632669JEWLTALLSL g/dL 12.6 13.3HEMATOCRIT % 36.0 39.5PLATELETS 10*3/uL 225 251SODIUM mmol/L 136 135*POTASSIUM mmol/L 4.0 3.9CHLORIDE mmol/L 100 99*CO2 mmol/L 27 27BUN mg/dL 19 20CREATININE mg/dL 0.61 0.65GLUCOSE mg/dL 86 81CALCIUM mg/dL 8.5 9.0DIAGNOSTIC DATA:I personally reviewedEKG: denise atrial rhythm, RBBBTele: low atrial rhythm, sinus bradyFINAL DIAGNOSES:1. Pre-Syncope2. SSS3. RBBB4. CABG x5 in . hypertension, hyperlipidemia,6. COPD on home X3Jtwmzgnjic:he patient presents with symptomatic bradycardia, as evidenced [...] oreven .Facundo Lockett M.D., FACC, FHRSClinical Cardiac Cqztknzylhkvbnuxj89/30/2020 3:56 PM Name Value Range Interpretation Code Description Data Ximena rce(s) Supporting Document(s) ID Date Data Source [id number] 07/24/2020 07:11:50 PM EDT [address] [address]Jfcvuat Name: FLORA MIJARESDOB: 2Sex: FOrdering Provider: Rene LOCKETTAuthorialka Prov: Rene LOCKETTReferrloretta Provider: Procedure Performed: XR CHEST PORTABLEExam Date: 07/24/2020 19:08MRN: [id number] Number: [id number] Class: OutpatientAccount #: [id number] for Exam: ppmTechnique: AP portable view obtained.Comparison: July 23, 2020Findings: Pacemaker right chest wall with leads extending to the right atrium and right ventricle.No pneumothorax or pleural effusion.Poor inflation with mild left basilar atelectasis.Sternal wires and surgical clips overlie the mediastinum.The bones are osteopenic.IMPRESSION: No pneumothorax or pleural effusion detected after pacemaker placement.Report electronically signed by: KELLI MORE On 07/24/2020 7:11 PMWorkstation ID: [id number] Name Value Range Interpretation Code Description Data Ximena rce(s) Supporting Document(s) ID Date Data Source [id number] 07/24/2020 06:12:52 PM EDT [facility] Name Value Range Interpretation Code Description Data Ximena rce(s) Supporting Document(s) &PDF [facility] RJSUAk4pKtABUwNk27/YSWoqQNBlb2McBRjdUDu4XSqvPSSrO1SncWbyDZePRicMRH6tMZMIOR9rRPBe waW [file] a7Z07qgXUjJLvgFA5ZPLK+Yvan+Oi3WKFSuWEIpNPBqNcUhPNCZHuMsF0UbR3PSe5IqY3MaOU60aUecst TiSPpeDE1GZR1mVCPfOWPHMV0TpESrcB1pxaC3ZDZl JSKVMyZpE76kdZHtDXFjJAY1NMQjYf3HAOInP6VvdoSvoTpyybDpTZSlBHIXUO3XBQmaekPduBXrvQkl NZ10cMgiKW5PXi5SEuCzZM6cjw1HuAHdKl8PWZR9NR1PNKHeLTLbTRImQSA5QYNdTxMkPEyiIOTeAUPd YUD1TBMbZTCoZU0MEpDwPSTaCBQ5NAjhLFRaACBpgw 8YXOKcWHF9PFF4KKCjMRToYQCnGRhaVCPrTSCmHVp6NTUtWCQnXI4XFcJhLDYmQTC5RLExNVVoNEOwid 1YIEYfKLX7SRd2IYEsFHUqMXTtTDcrJOOqIEQ4VHJqYIXhAIAqHV9DVoGkAOBjRTipKVVoJTXaFUAesi 4ZPLImBHF0NCJ3ETInXFHgBZFqVZelNSJvKMA3McV7 UHXsEXCsQO1UMiCaNSAbYKj2VFZaUMSuHPPikr1UDMWhTNR6SMd7ZiShTHLxCZIuGQzgWWTwTOAzBMXj WBElVMCtYV4TQfFiEHRbVQEbMkFeXFPgOIUmey6VFYWxXMQ0JBY0APVfWOCfSBWiEPyiAAJgFRQdDnG8 UGSlFKUmQE4DPjMvCGYpKEF1YgEzGTNvUJHwpx6EBV QnKGF8CJj7XjNlCHQfTBJfRKxjNCMdCVAvMFpeNZWwFWBnMF6HXdXnNXSdVNO6NGfmXNEfKCTdoh0REC UzASWxUwJ9FOWyOYJsKEWsAKfoCBRgAFV4Fsd2TKKyTKPkTQ6ANwWjZKHeDXkqUzWqXYSoTSOyft0QCP IlYKDaWLZqDFFbDQCwWDVbEGmkBORsTDRnXVb6HIZi WBHeGW9NRpBzAZAbUNJmZYUbWLBgFUZggg4LEAHtVAExEOE0IZGmHGApQRUdLBavGIPpUIUpJQE1PBMu DVTvWR4DQkElUCUuHPO0BzoaBSAwXIKcjo1MDELiVLClXAlpDqQoXOFoLSExFBhdTKOuTVNmFLI6ZQHr MWUeMJ3ADsNwBFClQkM4NAycTKTdSWHwbj4JERZbOV PrVQHpOvImZHZjUNSdBYcdMQAjFFC3YkT5XPSnHYUxYE0OYwEvHCGrKfC0MQCcKVDpKXQczp9RQIZnLM VrBWw3DPAaQMNrZVUtJEgsFPSyUZX6OIhqRFToROQeHR9ELoZxYHTbDcCiKXciVBCxZNZsba7GSWFlMT ZtKoJoVEBmIHYzZDLmTFgyKXOsRWP9ZtanBNEqMAKk TL5AMkFqLPEhQzd1NJHtAUNvBCCddl7GADGeLEE0VmLgCZSbDUPpKUOyDHfdTBUkHOI2EAu9KCOgYHZh XW2YUhKjSSOfIZreROkbZZXwVGUsqc6DGQSzJVD2QJoyDTDiYJWfVKYaYVgyZFLbMRQ9OQcrKOFdAYEa RQ7UXsXpDKBhNZYvYJowAZXoFOWpst1JiWThwZhkca 0YRDmNBv7XyXteHDW2NZhlZx6iwRU6NjWvEEISDs8YhfVjSWZoFCJBPJepMFGlOHPdLcP9FXPcDpMwBE BdICG4I2E7LkjbVBZwPeVaTZh3MuT0AWD3JBn8V0TvAxV3KeL9RmS9ECCkFUWpCnHjSyHzGOT+IF0gDQ o+Cj7Id7NggiR2xfZaEDd2AAY5XX3PZQQYY2QOLk== ID Date Data Source [id number] 07/24/2020 09:26:04 AM EDT [facility] NT INFORMATIONPatient MRN Name Date of Age Gend*PT [id number] Flora Mijares 1940 79 years F OBSPT Location Admission Date/Time Visit ID Attending ProviderD-[id number] 07/23/202045 --- Kai Dahl MD([id number]) EPI ID CSN Admitting Provider [id number] Pauline Hernandez MD([id number])Cardiology History and PhysicalName: Flora Mijares Gender: femaleDate of : 1940 Age: 79 yearsDate/Time of Admit: 07/23/2020 8:46 PM Code Status: DNR (Do NOT attempt CPR)Primary Care ProviderReferring Physician: Colton TANG, [facility]ermahamed Complaint: Chest painReason for consult: BradycardiaHPI: 79-year-old [...] sleep apnea) Palpitations 04/22/2019 Peripheral vascular disease CARDIAC SONOGRAPHER to renal artery Pharmacologic SPECT 05/10/2019 No angina or arrhythmia with stress. Perfusion study shows infarction. Cannotrule out that small fixed defect in inferior basal is d/t attenuation. LEVF 58%.Suggestive of RV enlargement and septal wall motion abnormality. These suggestpresence of pulmonary HTN. 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 [...] file Gets together: Not on file Attends faith service: Not on file Active member of [...] mouth 2 (two) times a day Umeclidinium [place] (INCRUSE ELLIPTA) 62.5 MCG/INH AEPB Inhale 1 [...] clubbing and no edema.DiagnosticsABGs:Lab ResultsComponent Value Date G0VWMHVF VENT 03/23/2019 POCSOURCE ARTERIAL 03/23/2019 POCFIO2 40 [...] results found for: POCTROPTSH:No results found for: I8WDWJVSS: marked sinus bradycardia, RBBBAssessment and PlanPrincipal Problem: Chest painActive Problems: Pulmonary HTN COPD (chronic obstructive pulmonary disease) Neuropathy TODD (obstructive sleep apnea) Pulmonary hypertension Gastroesophageal reflux disease Cardiomegaly Bradycardia History of stent insertion of renal artery RBBB Supplemental oxygen dependent Seizure Mrqiobnfxhoczu75-iyic-kzx lady with sick sinus syndrome new right [...] rce(s) Supporting Document(s) ID Date Data Source [id number] 07/24/2020 08:20:37 AM EDT [facility] Name Value Range Interpretation Code Description Data Ximena rce(s) Supporting Document(s) EKG [facility] HSQDUr4fEbSVVfDtf5DcTbHtSMWoJD1alkh4X4S6qWOkG3TahXXix9fhM5CuX2NwIRDlUBHOOP6JlBJg jb2 [file] 2TkExiEwS58c3I2vE7EWEkqCY6Ddv5yjU+0v8d+MANAGER SOLAR [file] xgD6nfXhYnYwOdI7MlTvED9J ID Date Data Source [id number] 07/24/2020 07:47:42 AM EDT [place], [place] [address]Patient Name: FLORA ALVINB: 2Sex: FOrdering Provider: SHERI Soni Prov: SHERI Owens Provider: Procedure Performed: XR CHEST PORTABLEExam Date: 07/23/2020 22:03MRN: [id number] Number: [id number] Class: OutpatientAccount #: [id number] for Exam: chest painTechnique: AP portable view obtained.Comparison: March 23, 2019Findings: Lungs are clear. Patient is status post median sternotomy. There are no pleural effusions. Mediastinal contours are unremarkable.IMPRESSION: No acute disease in the chest.Report electronically signed by: MARISA MCCLENDON On 07/24/2020 7:47 AMWorkstation ID: [id number] Name Value Range Interpretation Code Description Data Ximena rce(s) Supporting Document(s) ID Date Data Source [id number] 07/24/2020 06:05:39 AM EDT [facility] Name Value Range Interpretation Code Description Data Ximena rce(s) Supporting Document(s) SODIUM 136 mmol/L (136-145) [facility] POTASSIUM 4.0 mmol/L (3.6-5.2) [facility] CHLORIDE 100 mmol/L (100-108) [facility] CO2 27 mmol/L (22-31) [facility] ANION GAP 9 mmol/L (7-16) [facility] UREA NITROGEN 19 mg/dL (7-24) [facility] CREATININE 0.61 mg/dL (0.60-1.00) [facility] BUN/CREAT RATIO 31.1 RATIO (10.0-20.0) [facility] GLUCOSE 86 mg/dL (70-99) [facility] CALCIUM 8.5 mg/dL (8.4-10.2) [facility] GFR >60 ml/min/1.73m2 (>59) [facility] GFR ( AMER) >60 ml/min/1.73m2 (>59) [facility] GFR INTERPRETATION [facility] --NORMAL KIDNEY FUNCTION OR MILD DISEASE - GFR >OR= 60CHRONIC KIDNEY DISEASE - GFR 15 - 59RENAL FAILURE - GFR <15 Est. GFR calculation based on the MDRDstudy equation, which assumes a steadystate for creatinine. Est. GFR should notbe used for medication dosing. ID Date Data Source [id number] 07/24/2020 05:31:30 AM EDT [facility] Name Value Range Interpretation Code Description Data Ximena rce(s) Supporting Document(s) WBC 6.1 10*3/uL (4.1-11.0) [facility] RBC 4.24 10*6/uL (4.00-5.40) [facility] HGB 12.6 g/dL (12.0-16.0) [facility] HCT 36.0 % (36.0-47.0) [facility] PER[facility] AT [address] [place] [address] [facility] [address] MCV 84.9 fL (80.0-95.0) [facility] MCH 29.8 pg (27.0-32.0) [facility] MCHC 35.1 g/dL (32.0-36.0) [facility] RDW 15.1 % (10.5-14.5) H [facility] PLT 225 10*3/uL (150-450) [facility] MPV 7.1 fL (7.1-10.7) [facility] ID Date Data Source [id number] 07/24/2020 01:36:13 AM EDT [facility] INFORMATIONPatient MRN Name Date of Age Gend*PT [id number] Flora Mijares 1940 79 years F OBSPT Location Admission Date/Time Visit ID Attending [id number] 07/23/202045 --- Kai Dahl MD([id number]) EPI ID CSN Admitting Provider [id number] Pauline Hernandez MD([id number]) Attestation signed by Pauline Hernandez MD at [...] history of CAD (s/p multiple PCIincluding: Last [facility] October 2017 which revealed patent ESPINOSA to LAD and patentstents in the right and left circumflex and LAD; she is status post CABGX5 [id number]). Echocardiogram May 2019 showed normal LV size [...] took her to the emergency room in [facility].Work-up in [facility] [...] in the past. 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 Perfusion study shows infarction. Cannotrule out that small fixed defect in inferior basal is d/t attenuation. LEVF 58%.Suggestive of RV enlargement and septal wall motion abnormality. These suggestpresence of pulmonary HTN. 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 [facility].Chest painPresently offers no anginal complaint sEKG on admission is noted to marked sinus bradycardia with RBBB which appears gagan new as compared to prior EKG from 2018, ?possibly a wondering atrialpacemakerShe offers no anginal complaintsTroponin [place] negative [place] and repeat here is negativeHer last pharmacologic [...] rce(s) Supporting Document(s) ID Date Data Source [id number] 07/24/2020 12:34:00 AM EDT [facility] Patient: FLORA MIJARES Observation Re [facility] Phys[facility].VisitID: [id number] [place] [address] [phone], FRegistration Date/Time: 07/23/2020 15:41 Weight:74.8 kg (S). Height/Length:61 inches (S). BMI:31.2 FAMILY HISTORYFather: Cancer, Hypertension. Mother: Diabetes Mellitus. (Electronically signed by Ivory Lozada, P.AJosé Miguel 07/23/2020 19:20) Name Value Range Interpretation Code Description Data Ximena rce(s) Supporting Document(s) ID Date Data Source [id number] 07/24/2020 12:59:25 AM EDT [facility] Name Value Range Interpretation Code Description Data Ximena rce(s) Supporting Document(s) TROPONIN I <0.05 ng/mL (<0.05) [facility] [place] Less than 0.05: Myocardial injury unlike lyGreater than or equal to 0.05: Highly suggestive of myocardial injuryCorrelation with rise and/or fall ofserial troponins, clinical symptomsand ECG changes is necessary. ID Date Data Source [id number] 07/23/2020 10:13:07 PM EDT [facility] Name Value Range Interpretation Code Description Data Ximena rce(s) Supporting Document(s) HEMOGLOBIN A1C @ 5.9 % (4.0-6.0) [facility] Performed using Siemens [place] immunoassa y.Care must be taken when interpreting ErC2yvrzulic in patients with a hemoglobin variantor decreased erythrocyte lifespan. Values 5.7 - 6.4% suggest prediabetes.Values >=6.5% are diagnostic for diabetes.REFERENCE: DIABETES CARE 2018: 41(S13-S27).PERFORMED AT [address] [place] [id number] [address] GLUCOSE 123 mg/dL [facility] ID Date Data Source [id number] 07/23/2020 11:27:32 PM EDT [facility] Name Value Range Interpretation Code Description Data Ximena rce(s) Supporting Document(s) CHOLESTEROL @ 114 mg/dL (0-200) [facility] of [place] TRIGLYCERIDE @ 94 mg/dL (30-200) [facility] of [facility] HDL CHOLESTEROL @ 46 mg/dL (>40) [facility] of [facility] PER NCEP ATP III GUIDELINES:RESULTS LOWE R THAN 40 MG/DL ARE SUGGESTIVEOF INCREASED RISK FOR CORONARY ARTERYDISEASE. RESULTS > OR = TO 60 MG/DL ARECONSIDERED A NEGATIVE RISK FACTOR. CHOL/HDL RATIO 2.5 RATIO [facility] INTERPRETATION OF CHOL-HDL RATIO CHD RISK FEMALE MALEVERY HIGH >8.3 >14.3HIGH 5.6- 8.3 6.7- 14.3AVERAGE 3.7- 5.6 4.0- 6.7BELOW AVERAGE 2.5- 3.7 2.7- 4.0PROTECTED <2.5 <2.7 LDL CHOL (CALC) 49 mg/dL (<130) [facility] [place] PER NCEP ATP III GUIDELINES: OPTIMAL < 100 NEAR OPTIMAL 100 - 129BORDERLINE HIGH 130 - 159 HIGH 160 - 189 VERY HIGH > 189 ID Date Data Source [id number] 07/23/2020 10:41:28 PM EDT Lab Lisa SPEC EXP DATE 07/26/2020PATI ENT ABO/Rh O NEGATIVEANTIBODY SCREEN NEGATIVETESTING SITE PERFORMED AT [address] [place] [id number] Name Value Range Interpretation Code Description Data Ximena rce(s) Supporting Document(s) TYPE AND SCREEN [facility] f [facility] PATIENT ABO/Rh O NEGATIVE ID Date Data Source [id number] 07/23/2020 10:08:32 PM EDT [facility] Name Value Range Interpretation Code Description Data Ximena rce(s) Supporting Document(s) TSH,ULTRASENSITIVE @ 1.605 mIU/L (0.360-4.170) [facility] PERFORMED AT [address] [place] [address] [place] [id number] ID Date Data Source [id number] 07/23/2020 10:08:32 PM EDT [facility] [place] Name Value Range Interpretation Code Description Data Ximena rce(s) Supporting Document(s) NT PRO BNP 399 pg/mL (0-450) [facility] ID Date Data Source [id number] 07/23/2020 10:08:32 PM EDT [facility] [place] Name Value Range Interpretation Code Description Data Ximena rce(s) Supporting Document(s) TROPONIN I <0.05 ng/mL (<0.05) [facility] of [place] Less than 0.05: Myocardial injury unlike lyGreater than or equal to 0.05: Highly suggestive of myocardial injuryCorrelation with rise and/or fall ofserial troponins, clinical symptomsand ECG changes is necessary. ID Date Data Source [id number] 07/23/2020 10:08:32 PM EDT [facility] Name Value Range Interpretation Code Description Data Ximena rce(s) Supporting Document(s) SODIUM 135 mmol/L (136-145) L [facility] POTASSIUM 3.9 mmol/L (3.6-5.2) [facility] CHLORIDE 99 mmol/L (100-108) L [facility] CO2 27 mmol/L (22-31) [facility] ANION GAP 9 mmol/L (7-16) [facility] UREA NITROGEN 20 mg/dL (7-24) [facility] CREATININE 0.65 mg/dL (0.60-1.00) [facility] BUN/CREAT RATIO 30.8 RATIO (10.0-20.0) H [facility] [place] GLUCOSE 81 mg/dL (70-99) [facility] CALCIUM 9.0 mg/dL (8.4-10.2) [facility] [place] TOTAL PROTEIN 7.0 g/dL (6.4-8.2) [facility] ALBUMIN 3.9 g/dL (3.2-4.5) [facility] GLOBULIN 3.1 g/dL (2.7-4.3) [facility] ALB/GLOB RATIO 1.3 RATIO [facility] ALKALINE PHOSPHATASE 70 U/L (45-117) [facility] n[facility] of [place] BILIRUBIN,TOTAL 0.5 mg/dL (0.0-1.0) [facility] [place] PLEASE NOTE:Total bilirubin results may be falselyelevated in patients taking Eltrombopag. AST (SGOT) 23 U/L (11-39) [facility] ALT (SGPT) 31 U/L (12-78) [facility] GFR >60 ml/min/1.73m2 (>59) [facility] [place] GFR ( AMER) >60 ml/min/1.73m2 (>59) [facility] GFR INTERPRETATION [facility] [place] --NORMAL KIDNEY FUNCTION OR MILD DISEASE - GFR >OR= 60CHRONIC KIDNEY DISEASE - GFR 15 - 59RENAL FAILURE - GFR <15 Est. GFR calculation based on the MDRDstudy equation, which assumes a steadystate for creatinine. Est. GFR should notbe used for medication dosing. ID Date Data Source [id number] 07/23/2020 09:57:53 PM EDT [facility] Name Value Range Interpretation Code Description Data Ximena rce(s) Supporting Document(s) MAGNESIUM 2.1 mg/dL (1.7-2.4) [facility] luciana BENITO ID Date Data Source [id number] 07/23/2020 09:45:21 PM EDT [facility] Name Value Range Interpretation Code Description Data Ximena rce(s) Supporting Document(s) APTT 24.6 s (22.0-34.3) [facility] [place] ID Date Data Source [id number] 07/23/2020 09:45:21 PM EDT [facility] Name Value Range Interpretation Code Description Data Ximena rce(s) Supporting Document(s) PT 10.5 s (9.2-11.9) [facility] INR 1.00 [facility] SUGGESTED THERAPEUTIC RANGES USING INR F ORSTABILIZED ANTICOAGULATED PATIENTS:STANDARD DOSE THERAPY INR 2.0-3.0 DVT, PE, PREVENT DVT OR EMBOLISMHIGH DOSE THERAPY INR 2.5-3.5 PREVENT EMBOLISM FROM MECHANICAL HEART VALVE ID Date Data Source [id number] 07/23/2020 09:33:10 PM EDT [facility] [place] Name Value Range Interpretation Code Description Data Ximena rce(s) Supporting Document(s) WBC 7.3 10*3/uL (4.1-11.0) [facility] [place] RBC 4.56 10*6/uL (4.00-5.40) [facility] HGB 13.3 g/dL (12.0-16.0) [facility] [place] HCT 39.5 % (36.0-47.0) [facility] of [place] PERFORMED AT [address] [place] [address] [place] [address] MCV 86.6 fL (80.0-95.0) [facility] [place] MCH 29.3 pg (27.0-32.0) [facility] [place] MCHC 33.8 g/dL (32.0-36.0) [facility] [place] RDW 15.3 % (10.5-14.5) H [facility] [place] PLT 251 10*3/uL (150-450) [facility] [place] MPV 6.9 fL (7.1-10.7) L [facility] NEUT % 67.9 % (35.0-75.0) [facility] [place] LYMPH % 19.2 % (16.0-52.0) [facility] [place] MONO % 10.9 % (0.0-8.0) H [facility] [place] EOS % 1.2 % (0.0-5.0) [facility] [place] BASO % 0.8 % (0.0-4.0) [facility] NEUT # 4.9 10*3/uL (1.8-7.7) [facility] [place] LYMPH # 1.4 10*3/uL (1.2-4.8) [facility] [place] MONO # 0.8 10*3/uL (0.0-0.8) [facility] [place] Eosinophils [#/volume] in Blood by Automated count 0.1 10*3/uL (0.0-0 .5) [facility] BASO # 0.1 10*3/uL (0.0-0.2) [facility] [place] ID Date Data Source [id number] 07/23/2020 05:01:00 PM EDT [facility] [...] rce(s) Supporting Document(s) ID Date Data Source [id number] 07/23/2020 05:00:00 PM EDT [facility] Name Value Range Interpretation Code Description Data Ximena rce(s) Supporting Document(s) COVID-19 [facility] This lab was ordered by [facility] and reported by [facility] Laboratory. ID Date Data Source [id number] 07/23/2020 05:45:[address] [facility] [id number] Name Value Range Interpretation Code Description Data [...] are for the indentification of SARS-CoV-2 RNA. EqoBFAM-HvD-2 RNA is generally detectable in respiratorysamples during the actue phase of infection. ID Date Data Source [id number] 07/23/2020 04:40:00 PM EDT [facility] [id number] Name Value Range Interpretation Code Description Data Ximena rce(s) Supporting Document(s) TROPONIN I < 0.017 ng/mL 0.0-0.056 [facility] ID Date Data Source [id number] 07/23/2020 04:40:00 PM EDT [facility] TSYSORDER [id number] Name Value Range Interpretation Code Description Data Ximena rce(s) Supporting Document(s) LIPASE 82 U/L 73-393 [facility] ID Date Data Source [id number] 07/23/2020 04:40:00 PM EDT [facility] TSYSORDER [id number] Name Value Range Interpretation Code Description Data Ximena rce(s) Supporting Document(s) GLUCOSE 103 mg/dL 74-106 [facility] BLOOD UREA NITROGEN 21 mg/dL 7-[address] [facility] ital CREATININE 0.8 mg/dL 0.6-1.0 [facility] GLOMERULAR FILTRATION RATE 70 mL/min [facility] GFR IS CALCULATED IN mL/min/1.73m2 AGNIESZKA L FUNCTION: >90MILDLY DECREASED: 60-89MILDY TO MODERATELY DECREASED: 45-59 MODERATELY TO SEVERELY DECREASED: 30-44SEVERELY DECREASED: 15-29RENAL FAILURE: <15 AST 29 U/L 15-37 [facility] ALT 34 U/L 12-78 [facility] ALKALINE PHOSPHATASE 77 U/L 46-116 [facility] pital TOTAL BILIRUBIN 0.4 mg/dL 0.2-1.0 [facility] TOTAL PROTEIN 7.6 g/dl 6.4-8.2 [facility] ALBUMIN 4.0 gm/dL 3.4-5.0 [facility] ID Date Data Source [id number] 07/23/2020 04:34:00 PM EDT [facility] TSYSORDER [id number] Name Value Range Interpretation Code Description Data Ximena rce(s) Supporting Document(s) PARTIAL THROMBOPLASTIN TIME 24.2 SECONDS 21.2-27.3 [facility] ID Date Data Source [id number] 07/23/2020 04:34:00 PM EDT [facility] TSYSORDER [id number] Name Value Range Interpretation Code Description Data Ximena rce(s) Supporting Document(s) PROTHROMBIN TIME (PATIENT) 9.8 SECONDS 9.1-11.6 [facility] INR 0.94 0.87-1.06 [facility] ID Date Data Source [id number] 07/23/2020 04:25:00 PM EDT [facility] TSYSORDER [id number] Name Value Range Interpretation Code Description Data Ximena rce(s) Supporting Document(s) WHITE BLOOD COUNT 7.2 K/mm3 4.0-10.0 [facility] al RED BLOOD COUNT 4.64 M/mm3 4.00-5.50 [facility] HEMOGLOBIN 13.2 gm/dL 12.0-16.0 [facility] HEMATOCRIT 40.1 % 36.0-48.8 [facility] MEAN CELL VOLUME 86.4 fl 80-96 [facility] MEAN CORPUSCULAR HEMOGLOBIN 28.4 pg 27.0-31.0 [facility] MEAN CORPUSCULAR HGB CONC 32.9 g/dl 32.0-36.0 [facility] RED CELL DISTRIBUTION WIDTH 14.8 % 10.0-14.5 H [facility] PLATELET COUNT 264 K/mm3 172-450 [facility] MEAN PLATELET VOLUME 9.4 fl 9.0-13.0 [facility] pital GRAN % 68.1 % 50-80.0 [...] EST Former Smoker completed Former Smoker eCW1 ([facility]) Smoking 08/26/2021 12:00:00 AM EST Former Smoker completed Former Smoker eCW1 ([facility]) Smoking 08/26/2021 12:00:00 AM EST Former Smoker completed Former Smoker eCW1 ([facility]) Smoking 08/12/2021 12:00:00 AM EST Former Smoker completed Former Smoker eCW1 ([facility]) Smoking 08/12/2021 12:00:00 AM EST Former Smoker completed Former Smoker eCW1 ([facility]) Smoking 05/25/2021 12:00:00 AM EDT Former Smoker completed Former Smoker eCW1 ([facility]) Smoking 05/25/2021 12:00:00 AM EDT Former Smoker completed Former Smoker eCW1 ([facility]) Smoking 05/25/2021 12:00:00 AM EDT Former Smoker completed Former Smoker eCW1 ([facility]) Smoking 05/25/2021 12:00:00 AM EDT Former Smoker completed Former Smoker eCW1 ([facility]) Smoking 05/25/2021 12:00:00 AM EDT Former Smoker completed Former Smoker eCW1 ([facility]) Smoking 05/25/2021 12:00:00 AM EDT Former Smoker completed Former Smoker eCW1 ([facility]) Smoking 05/25/2021 12:00:00 AM EDT Former Smoker completed Former Smoker eCW1 ([facility]) Smoking 05/25/2021 12:00:00 AM EDT Former Smoker completed Former Smoker eCW1 ([facility]) Smoking 05/25/2021 12:00:00 AM EDT Former Smoker completed Former Smoker eCW1 ([facility]) Smoking 05/11/2021 12:00:00 AM EDT Former Smoker completed Former Smoker eCW1 ([facility]) Smoking 05/11/2021 12:00:00 AM EDT Former Smoker completed Former Smoker eCW1 ([facility]) Smoking 05/11/2021 12:00:00 AM EDT Former Smoker completed Former Smoker eCW1 ([facility]) Smoking 05/10/2021 12:00:00 AM EDT Former Smoker completed Former Smoker eCW1 ([facility]) Smoking 04/08/2021 12:00:00 AM EDT Former Smoker completed Former Smoker eCW1 ([facility]) Smoking 04/08/2021 12:00:00 AM EDT Former Smoker completed Former Smoker eCW1 ([facility]) Smoking 04/08/2021 12:00:00 AM EDT Former Smoker completed Former Smoker eCW1 ([facility]) Smoking 04/08/2021 12:00:00 AM EDT Former Smoker completed Former Smoker eCW1 ([facility]) Smoking 04/08/2021 12:00:00 AM EDT Former Smoker completed Former Smoker eCW1 ([facility]) Smoking 04/08/2021 12:00:00 AM EDT Former Smoker completed Former Smoker eCW1 ([facility]) Alcohol intake 04/01/2021 12:00:00 AM EDT Current non-d maxx of alcohol (finding) completed Current non-drinker of alcohol (finding) [facility] Smoking 03/25/2021 12:00:00 AM EDT Former Smoker completed Former Smoker eCW1 ([facility]) Smoking 03/25/2021 12:00:00 AM EDT Former Smoker completed Former Smoker eCW1 ([facility]) Smoking 03/25/2021 12:00:00 AM EDT Former Smoker completed Former Smoker eCW1 ([facility]) Smoking 02/26/2021 12:00:00 AM EDT Former Smoker completed Former Smoker eCW1 ([facility]) Smoking 02/26/2021 12:00:00 AM EDT Former Smoker completed Former Smoker eCW1 ([facility]) Smoking 02/26/2021 12:00:00 AM EDT Former Smoker completed Former Smoker eCW1 ([facility]) Smoking 02/26/2021 12:00:00 AM EDT Former Smoker completed Former Smoker eCW1 ([facility]) Smoking 02/16/2021 12:00:00 AM EDT Former Smoker completed Former Smoker eCW1 ([facility]) Smoking 02/16/2021 12:00:00 AM EDT Former Smoker completed Former Smoker eCW1 ([facility]) Smoking 01/07/2021 12:00:00 AM EDT Former Smoker completed Former Smoker eCW1 ([facility]) Smoking 01/07/2021 12:00:00 AM EDT Former Smoker completed Former Smoker eCW1 ([facility]) Smoking 01/07/2021 12:00:00 AM EDT Former Smoker completed Former Smoker eCW1 ([facility]) Smoking 01/07/2021 12:00:00 AM EDT Former Smoker completed Former Smoker eCW1 ([facility]) Smoking 01/07/2021 12:00:00 AM EDT Former Smoker completed Former Smoker eCW1 ([facility]) Smoking 12/30/2020 12:00:00 AM EDT Former Smoker completed Former Smoker eCW1 ([facility]) Smoking 09/29/2020 12:00:00 AM EST Former Smoker completed Former Smoker eCW1 ([facility]) Smoking 09/29/2020 12:00:00 AM EST Former Smoker completed Former Smoker eCW1 ([facility]) Smoking 09/29/2020 12:00:00 AM EST Former Smoker completed Former Smoker eCW1 ([facility]) Smoking 09/29/2020 12:00:00 AM EST Former Smoker completed Former Smoker eCW1 ([facility]) Smoking 09/29/2020 12:00:00 AM EST Former Smoker completed Former Smoker eCW1 ([facility]) Smoking 09/29/2020 12:00:00 AM EST Former Smoker completed Former Smoker eCW1 ([facility]) Smoking 09/29/2020 12:00:00 AM EST Former Smoker completed Former Smoker eCW1 ([facility]) Smoking 09/29/2020 12:00:00 AM EST Former Smoker completed Former Smoker eCW1 ([facility]) Smoking 09/29/2020 12:00:00 AM EST Former Smoker completed Former Smoker eCW1 ([facility]) Smoking 07/30/2020 12:00:00 AM EST Former Smoker completed Former Smoker eCW1 ([facility]) Smoking 07/30/2020 12:00:00 AM EST Former Smoker completed Former Smoker eCW1 ([facility]) Smoking 07/30/2020 12:00:00 AM EST Former Smoker completed Former Smoker eCW1 ([facility]) Smoking 07/30/2020 12:00:00 AM EST Former Smoker completed Former Smoker eCW1 ([facility]) Smoking 07/30/2020 12:00:00 AM EST Former Smoker completed Former Smoker eCW1 ([facility]) Smoking 07/30/2020 12:00:00 AM EST Former Smoker completed Former Smoker eCW1 ([facility]) Smoking 07/30/2020 12:00:00 AM EST Former Smoker completed Former Smoker eCW1 ([facility]) Alcohol intake 07/28/2020 12:00:00 AM EST No completed [facility] Cigarette pack-years 07/28/2020 12:00:00 AM EST UNK completed [facility] Cigarettes smoked current (pack per day) - Reported 07/28/20 20 12:00:00 AM EST UNK completed [facility] Smoking 07/28/2020 12:00:00 AM EST Former smoker completed Former smoker [facility] Vital Signs ID Date Data Source UNK Name Value Range Interpretation Code Description Data Source(s) Body mass index (BMI) [Ratio] 28.15 kg/m2 28.15 kg/m2 eCW1 ([facility]) Body weight 149 [lb_av] 149 [lb_av] eCW1 ([facility] Body height 61 [in_i] 61 [in_i] eCW1 ([facility]) Heart rate 65 /min 65 /min eCW1 ([facility]) Respiratory rate 21 /min 21 /min eCW1 ([facility]) Body temperature 98 [degF] 98 [degF] eCW1 ([facility]) Systolic blood pressure 186 mm[Hg] 186 mm[Hg] e CW1 ([facility]) Diastolic blood pressure 80 mm[Hg] 80 mm[Hg] eCW1 ([facility]) Body weight 151.4 [lb_av] 151.4 [lb_av] eCW1 ([facility]) Body weight 68.67 kg 68.67 kg eCW1 ([facility]) Body height 61 [in_i] 61 [in_i] eCW1 ([facility]) Body mass index (BMI) [Ratio] 28.60 kg/m2 28.60 kg/m2 eCW1 ([facility]) Heart rate 70 /min 70 /min eCW1 ([facility]) Respiratory rate 18 /min 18 /min eCW1 ([facility]) Body temperature 99.0 [degF] 99.0 [degF] eCW1 ( [facility]) Systolic blood pressure 142 mm[Hg] 142 mm[Hg] e CW1 ([facility]) Diastolic blood pressure 66 mm[Hg] 66 mm[Hg] eCW1 ([facility]) Body weight 145 [lb_av] 145 [lb_av] eCW1 ([facility]) Body weight 65.77 kg 65.77 kg eCW1 ([facility]) Body height 61 [in_i] 61 [in_i] eCW1 ([facility]) Body mass index (BMI) [Ratio] 27.39 kg/m2 27.39 kg/m2 eCW1 ([facility]) Heart rate 65 /min 65 /min eCW1 ([facility]) Respiratory rate 18 /min 18 /min eCW1 ([facility]) Body temperature 98.6 [degF] 98.6 [degF] eCW1 ( [facility]) Systolic blood pressure 155 mm[Hg] 155 mm[Hg] e CW1 ([facility]) Diastolic blood pressure 83 mm[Hg] 83 mm[Hg] eCW1 ([facility]) Systolic blood pressure 130 mm[Hg] 130 mm[Hg] M EDENT ([facility], ) Diastolic blood pressure 80 mm[Hg] 80 mm[Hg] MEDENT ([facility], ) Heart rate 64 /min 64 /min MEDENT ([facility], ) Respiratory rate 16 /min 16 /min MEDENT ( [facility] ) Body weight 148 [lb_av] 148 [lb_av] eCW1 ([facility]) Body height 61 [in_i] 61 [in_i] eCW1 ([facility]) Body mass index (BMI) [Ratio] 27.96 kg/m2 27.96 kg/m2 eCW1 ([facility]) Heart rate 66 /min 66 /min eCW1 ([facility]) Respiratory rate 18 /min 18 /min eCW1 ([facility]) Body temperature 98 [degF] 98 [degF] eCW1 ([facility]) Systolic blood pressure 156 mm[Hg] 156 mm[Hg] e CW1 ([facility]) Diastolic blood pressure 80 mm[Hg] 80 mm[Hg] eCW1 ([facility]) Body weight 144.12 [lb_av] 144.12 [lb_av] eCW1 ([facility]) Body height 61 [in_i] 61 [in_i] eCW1 ([facility]) Body mass index (BMI) [Ratio] 27.23 kg/m2 27.23 kg/m2 eCW1 ([facility]) Heart rate 70 /min 70 /min eCW1 ([facility]) Respiratory rate 18 /min 18 /min eCW1 ([facility]) Body temperature 98 [degF] 98 [degF] eCW1 ([facility]) Systolic blood pressure 103 mm[Hg] 103 mm[Hg] e CW1 ([facility]) Diastolic blood pressure 68 mm[Hg] 68 mm[Hg] eCW1 ([facility]) Body weight 65.77 kg 65.77 kg eCW1 ([facility]) Body mass index (BMI) [Ratio] 27.39 kg/m2 27.39 kg/m2 eCW1 ([facility]) Heart rate 60 /min 60 /min eCW1 ([facility]) Body weight 145 [lb_av] 145 [lb_av] eCW1 ([facility]) Body temperature 97.3 [degF] 97.3 [degF] eCW1 ( [facility]) Respiratory rate 18 /min 18 /min eCW1 ([facility]) Systolic blood pressure 123 mm[Hg] 123 mm[Hg] e CW1 ([facility]) Diastolic blood pressure 58 mm[Hg] 58 mm[Hg] eCW1 ([facility]) Body height 61 [in_i] 61 [in_i] eCW1 ([facility]) Systolic blood pressure 130 mm[Hg] 130 mm[Hg] M EDENT ([facility], ) Diastolic blood pressure 80 mm[Hg] 80 mm[Hg] MEDENT ([facility], ) Heart rate 72 /min 72 /min MEDENT ([facility], ) Respiratory rate 16 /min 16 /min MEDENT ( [facility], ) Body weight 152 [lb_av] 152 [lb_av] eCW1 ([facility]) Body height 61 [in_i] 61 [in_i] eCW1 ([facility]) Body mass index (BMI) [Ratio] 28.72 kg/m2 28.72 kg/m2 eCW1 ([facility]) Heart rate 65 /min 65 /min eCW1 ([facility]) Respiratory rate 18 /min 18 /min eCW1 ([facility]) Body temperature 98.0 [degF] 98.0 [degF] eCW1 ( [facility]) Systolic blood pressure 142 mm[Hg] 142 mm[Hg] e CW1 ([facility]) Diastolic blood pressure 60 mm[Hg] 60 mm[Hg] eCW1 ([facility]) Systolic blood pressure 120 mm[Hg] 120 mm[Hg] [facility] Diastolic blood pressure 66 mm[Hg] 66 mm[Hg] [facility] Heart rate 68 /min 68 /min [facility] Body weight 67.132 kg 67.132 kg [facility] Body mass index (BMI) [Ratio] 27.96 kg/m2 27.96 kg/m2 [facility] Oxygen saturation in Arterial blood by Pulse oximetry 94 % 94 % [facility] Body weight 151.2 [lb_av] 151.2 [lb_av] eCW1 ([facility]) Body height 61 [in_i] 61 [in_i] eCW1 ([facility]) Body mass index (BMI) [Ratio] 28.57 kg/m2 28.57 kg/m2 eCW1 ([facility]) Heart rate 63 /min 63 /min eCW1 ([facility]) Respiratory rate 18 /min 18 /min eCW1 ([facility]) Body temperature 97.1 [degF] 97.1 [degF] eCW1 ( [facility]) Systolic blood pressure 138 mm[Hg] 138 mm[Hg] e CW1 ([facility]) Diastolic blood pressure 74 mm[Hg] 74 mm[Hg] eCW1 ([facility]) Body weight 153.4 [lb_av] 153.4 [lb_av] eCW1 ([facility]) Body weight 69.5 kg 69.5 kg [facility] [place] Body height 61 [in_i] 61 [in_i] eCW1 ([facility]) Body mass index (BMI) [Ratio] 28.98 kg/m2 28.98 kg/m2 eCW1 ([facility]) Heart rate 67 /min 67 /min eCW1 ([facility]) Respiratory rate 18 /min 18 /min eCW1 ([facility]) Body temperature 98.6 [degF] 98.6 [degF] eCW1 ( [facility]) Systolic blood pressure 134 mm[Hg] 134 mm[Hg] e CW1 ([facility]) Diastolic blood pressure 62 mm[Hg] 62 mm[Hg] eCW1 ([facility]) Body weight 156.0 [lb_av] 156.0 [lb_av] eCW1 ([facility]) Body height 61 [in_i] 61 [in_i] eCW1 ([facility]) Body mass index (BMI) [Ratio] 29.47 kg/m2 29.47 kg/m2 eCW1 ([facility]) Heart rate 66 /min 66 /min eCW1 ([facility]) Respiratory rate 18 /min 18 /min eCW1 ([facility]) Body temperature 97.3 [degF] 97.3 [degF] eCW1 ( [facility]) Systolic blood pressure 131 mm[Hg] 131 mm[Hg] e CW1 ([facility]) Diastolic blood pressure 63 mm[Hg] 63 mm[Hg] eCW1 ([facility]) Respiratory rate 16 /min 16 /min MEDENT ( [facility] ) Diastolic blood pressure 70 mm[Hg] 70 mm[Hg] MEDENT ([facility], ) Heart rate 76 /min 76 /min MEDENT ([facility] ) Systolic blood pressure 120 mm[Hg] 120 mm[Hg] M EDENT ([facility], ) Body mass index (BMI) [Ratio] 30.46 kg/m2 30.46 kg/m2 eCW1 ([facility]) Body weight 73.1 kg 73.1 kg eCW1 ([facility]) Body weight 161.2 [lb_av] 161.2 [lb_av] eCW1 ([facility]) Heart rate 68 /min 68 /min eCW1 ([facility]) Body height 61 [in_i] 61 [in_i] eCW1 ([facility]) Respiratory rate 18 /min 18 /min eCW1 ([facility]) Body temperature 99.4 [degF] 99.4 [degF] eCW1 ( [facility]) Systolic blood pressure 118 mm[Hg] 118 mm[Hg] e CW1 ([facility]) Diastolic blood pressure 62 mm[Hg] 62 mm[Hg] eCW1 ([facility]) Body weight 159 [lb_av] 159 [lb_av] eCW1 ([facility]) Body height 61 [in_i] 61 [in_i] eCW1 ([facility]) Body mass index (BMI) [Ratio] 30.04 kg/m2 30.04 kg/m2 W1 ([facility]) Heart rate 60 /min 60 /min eCW1 ([facility]) Respiratory rate 19 /min 19 /min eCW1 ([facility]) Body temperature 97.8 [degF] 97.8 [degF] eCW1 ( [facility]) Systolic blood pressure 111 mm[Hg] 111 mm[Hg] e CW1 ([facility]) Diastolic blood pressure 70 mm[Hg] 70 mm[Hg] eCW1 ([facility]) Systolic blood pressure 134 mm[Hg] 134 mm[Hg] [facility] Diastolic blood pressure 82 mm[Hg] 82 mm[Hg] [facility] Heart rate 62 /min 62 /min [facility] Body height 154.9 cm 154.9 cm [facility] Body weight 77.565 kg 77.565 kg [facility] Body mass index (BMI) [Ratio] 32.31 kg/m2 32.31 kg/m2 [facility] Oxygen saturation in Arterial blood by Pulse oximetry 94 % 94 % [facility] Body height 61 [in_i] 61 [in_i] eCW1 ([facility]) Body mass index (BMI) [Ratio] 32.08 kg/m2 32.08 kg/m2 W1 ([facility]) Body weight 169.8 [lb_av] 169.8 [lb_av] eCW1 ([facility]) Heart rate 74 /min 74 /min eCW1 ([facility]) Respiratory rate 18 /min 18 /min eCW1 ([facility]) Body temperature 98 [degF] 98 [degF] eCW1 ([facility]) Systolic blood pressure 152 mm[Hg] 152 mm[Hg] e CW1 ([facility]) Diastolic blood pressure 80 mm[Hg] 80 mm[Hg] eCW1 ([facility]) Systolic blood pressure 136 mm[Hg] 136 mm[Hg] [facility] Diastolic blood pressure 70 mm[Hg] 70 mm[Hg] [facility] Body height 154.9 cm 154.9 cm [facility] Body mass index (BMI) [Ratio] 32.57 kg/m2 32.57 kg/m2 [facility] Heart rate 76 /min 76 /min [facility] Oxygen saturation in Arterial blood by Pulse oximetry 96 % 96 % [facility] Body weight 78.2 kg 78.2 kg [facility] Systolic blood pressure 117 mm[Hg] 117 mm[Hg] e CW1 ([facility]) Diastolic blood pressure 70 mm[Hg] 70 mm[Hg] eCW1 ([facility]) Body weight 172 [lb_av] 172 [lb_av] eCW1 ([facility]) Body height 61 [in_i] 61 [in_i] eCW1 ([facility]) Body mass index (BMI) [Ratio] 32.50 kg/m2 32.50 kg/m2 W1 ([facility]) Heart rate 68 /min 68 /min eCW1 ([facility]) Respiratory rate 18 /min 18 /min eCW1 ([facility]) Body temperature 98 [degF] 98 [degF] eCW1 ([facility]) Systolic blood pressure 140 mm[Hg] 140 mm[Hg] [facility] Diastolic blood pressure 62 mm[Hg] 62 mm[Hg] [facility] Heart rate 82 /min 82 /min [facility] Body height 154.9 cm 154.9 cm [facility] Body weight 79.379 kg 79.379 kg [facility] Body mass index (BMI) [Ratio] 33.07 kg/m2 33.07 kg/m2 [facility] Oxygen saturation in Arterial blood by Pulse oximetry 88 % 88 % [facility] Systolic blood pressure 130 mm[Hg] 130 mm[Hg] [facility] Diastolic blood pressure 57 mm[Hg] 57 mm[Hg] [facility] Heart rate 67 /min 67 /min [facility] Body temperature 36.83 Ken[place] 36.83 Kenzie [facility] Respiratory rate 18 /min 18 /min [facility] Oxygen saturation in Arterial blood by Pulse oximetry 95 % 95 % [facility] Body height 154.9 cm 154.9 cm [facility] Body weight 78.744 kg 78.744 kg [facility] Body mass index (BMI) [Ratio] 32.80 kg/m2 32.80 kg/m2 [facility] Patient Treatment Plan of Care Planned Activity Planned Date Details Description Data Source (s) pregabalin 150 MG Oral Capsule [Lyrica] 07/21/2021 12:00:00 AM EDT eCW1 ([facility]) pregabalin 150 MG Oral Capsule [Lyrica] 07/21/2021 12:00:00 AM EDT eCW1 ([facility]) pregabalin 150 MG Oral Capsule [Lyrica] 07/21/2021 12:00:00 AM EDT eCW1 ([facility]) pregabalin 150 MG Oral Capsule [Lyrica] 07/21/2021 12:00:00 AM EDT eCW1 ([facility]) pregabalin 150 MG Oral Capsule [Lyrica] 07/21/2021 12:00:00 AM EDT eCW1 ([facility]) pregabalin 150 MG Oral Capsule [Lyrica] 07/21/2021 12:00:00 AM EDT eCW1 ([facility]) Acetaminophen 325 MG / Hydrocodone Bitartrate 10 MG Or al Tablet 07/08/2021 12:00:00 AM EDT eCW1 ([facility]) Acetaminophen 325 MG / Hydrocodone Bitartrate 10 MG Or al Tablet 07/08/2021 12:00:00 AM EDT eCW1 ([facility]) Acetaminophen 325 MG / Hydrocodone Bitartrate 10 MG Or al Tablet 07/08/2021 12:00:00 AM EDT eCW1 ([facility]) Acetaminophen 325 MG / Hydrocodone Bitartrate 10 MG Or al Tablet 07/08/2021 12:00:00 AM EDT eCW1 ([facility]) Acetaminophen 325 MG / Hydrocodone Bitartrate 10 MG Or al Tablet 07/08/2021 12:00:00 AM EDT eCW1 ([facility]) Acetaminophen 325 MG / Hydrocodone Bitartrate 10 MG Or al Tablet 07/08/2021 12:00:00 AM EDT eCW1 ([facility]) Acetaminophen 325 MG / Hydrocodone Bitartrate 10 MG Or al Tablet 07/08/2021 12:00:00 AM EDT eCW1 ([facility]) Acetaminophen 325 MG / Hydrocodone Bitartrate 10 MG Or al Tablet 07/08/2021 12:00:00 AM EDT eCW1 ([facility]) Levofloxacin 500 MG Oral Tablet 05/11/2021 12:00:00 AM EDT eCW1 ([facility]) Levofloxacin 500 MG Oral Tablet 05/11/2021 12:00:00 AM EDT eCW1 ([facility]) Levofloxacin 500 MG Oral Tablet 05/11/2021 12:00:00 AM EDT eCW1 ([facility]) Acetaminophen 325 MG / Hydrocodone Bitartrate 10 MG Or al Tablet 05/04/2021 12:00:00 AM EDT eCW1 ([facility]) Acetaminophen 325 MG / Hydrocodone Bitartrate 10 MG Or al Tablet 05/04/2021 12:00:00 AM EDT eCW1 ([facility]) Acetaminophen 325 MG / Hydrocodone Bitartrate 10 MG Or al Tablet 05/04/2021 12:00:00 AM EDT eCW1 ([facility]) Acetaminophen 325 MG / Hydrocodone Bitartrate 10 MG Or al Tablet 05/04/2021 12:00:00 AM EDT eCW1 ([facility]) Acetaminophen 325 MG / Hydrocodone Bitartrate 10 MG Or al Tablet 05/04/2021 12:00:00 AM EDT eCW1 ([facility]) Acetaminophen 325 MG / Hydrocodone Bitartrate 10 MG Or al Tablet 05/04/2021 12:00:00 AM EDT eCW1 ([facility]) Acetaminophen 325 MG / Hydrocodone Bitartrate 10 MG Or al Tablet 05/04/2021 12:00:00 AM EDT eCW1 ([facility]) Acetaminophen 325 MG / Hydrocodone Bitartrate 10 MG Or al Tablet 05/04/2021 12:00:00 AM EDT eCW1 ([facility]) Acetaminophen 325 MG / Hydrocodone Bitartrate 10 MG Or al Tablet 05/04/2021 12:00:00 AM EDT eCW1 ([facility]) Acetaminophen 325 MG / Hydrocodone Bitartrate 10 MG Or al Tablet 03/09/2021 12:00:00 AM EDT eCW1 ([facility]) Acetaminophen 325 MG / Hydrocodone Bitartrate 10 MG Or al Tablet 03/09/2021 12:00:00 AM EDT eCW1 ([facility]) Metronidazole 500 MG Oral Tablet 02/10/2021 12:00:00 AM EDT eCW1 ([facility]) Acetaminophen 325 MG / Hydrocodone Bitartrate 10 MG Or al Tablet 12/30/2020 12:00:00 AM EDT eCW1 ([facility]) Acetaminophen 325 MG / Hydrocodone Bitartrate 10 MG Or al Tablet 10/27/2020 12:00:00 AM EST eCW1 ([facility]) Acetaminophen 325 MG / Hydrocodone Bitartrate 10 MG Or al Tablet 10/27/2020 12:00:00 AM EST eCW1 ([facility]) Acetaminophen 325 MG / Hydrocodone Bitartrate 10 MG Or al Tablet 10/27/2020 12:00:00 AM EST eCW1 ([facility]) Acetaminophen 325 MG / Hydrocodone Bitartrate 10 MG Or al Tablet 10/27/2020 12:00:00 AM EST eCW1 ([facility]) Acetaminophen 325 MG / Hydrocodone Bitartrate 10 MG Or al Tablet 10/27/2020 12:00:00 AM EST eCW1 ([facility]) Acetaminophen 325 MG / Hydrocodone Bitartrate 10 MG Or al Tablet 10/27/2020 12:00:00 AM EST eCW1 ([facility]) Lisinopril 5 MG Oral Tablet 09/29/2020 12:00:00 AM EST eCW1 ([facility]) Lisinopril 5 MG Oral Tablet 09/29/2020 12:00:00 AM EST eCW1 ([facility]) Lisinopril 5 MG Oral Tablet 09/29/2020 12:00:00 AM EST eCW1 ([facility]) Lisinopril 5 MG Oral Tablet 09/29/2020 12:00:00 AM EST eCW1 ([facility]) Lisinopril 5 MG Oral Tablet 09/29/2020 12:00:00 AM EST eCW1 ([facility]) Lisinopril 5 MG Oral Tablet 09/29/2020 12:00:00 AM EST eCW1 ([facility]) Lisinopril 5 MG Oral Tablet 09/29/2020 12:00:00 AM EST eCW1 ([facility]) Lisinopril 5 MG Oral Tablet 09/29/2020 12:00:00 AM EST eCW1 ([facility]) Lisinopril 5 MG Oral Tablet 09/29/2020 12:00:00 AM EST eCW1 ([facility]) Lisinopril 5 MG Oral Tablet 09/29/2020 12:00:00 AM EST eCW1 ([facility]) Lisinopril 5 MG Oral Tablet 09/29/2020 12:00:00 AM EST eCW1 ([facility]) Lisinopril 5 MG Oral Tablet 09/29/2020 12:00:00 AM EST eCW1 ([facility]) Lisinopril 5 MG Oral Tablet 09/29/2020 12:00:00 AM EST eCW1 ([facility]) Lisinopril 5 MG Oral Tablet 09/29/2020 12:00:00 AM EST eCW1 ([facility]) Lisinopril 5 MG Oral Tablet 09/29/2020 12:00:00 AM EST eCW1 ([facility]) Lisinopril 5 MG Oral Tablet 09/29/2020 12:00:00 AM EST [facility] Lisinopril 5 MG Oral Tablet 09/29/2020 12:00:00 AM EST eCW1 ([facility]) Lisinopril 5 MG Oral Tablet 09/29/2020 12:00:00 AM EST eCW1 ([facility]) Lisinopril 5 MG Oral Tablet 09/29/2020 12:00:00 AM EST eCW1 ([facility]) Lisinopril 5 MG Oral Tablet 09/29/2020 12:00:00 AM EST eCW1 ([facility]) Lisinopril 5 MG Oral Tablet 09/29/2020 12:00:00 AM EST eCW1 ([facility]) Lisinopril 5 MG Oral Tablet 09/29/2020 12:00:00 AM EST eCW1 ([facility]) Lisinopril 5 MG Oral Tablet 09/29/2020 12:00:00 AM EST eCW1 ([facility]) Lisinopril 5 MG Oral Tablet 09/29/2020 12:00:00 AM EST eCW1 ([facility]) Lisinopril 5 MG Oral Tablet 09/29/2020 12:00:00 AM EST eCW1 ([facility]) Lisinopril 5 MG Oral Tablet 09/29/2020 12:00:00 AM EST eCW1 ([facility]) Amlodipine 5 MG Oral Tablet 09/17/2020 12:00:00 AM EST [facility] Atenolol 50 MG Oral Tablet 09/01/2020 12:00:00 AM EST [facility] Lisinopril 5 MG Oral Tablet 07/28/2020 12:00:00 AM EST [facility] 24 HR Isosorbide Mononitrate 60 MG Extended Release Or al Tablet 07/26/2020 12:00:00 AM EDT [facility] Amlodipine 5 MG Oral Tablet 07/26/2020 12:00:00 AM EDT [facility] Metoprolol Tartrate 25 MG Oral Tablet 07/25/2020 12:00:00 AM EDT [facility] Docusate Sodium 100 MG Oral Capsule 03/26/2019 12:00:00 AM EDT [facility] POLYETHYLENE GLYCOL 3350 142 MG/ML Oral Solution 03/26/2019 12:00:0 0 AM EDT [facility] Lisinopril 20 MG Oral Tablet [facility] METOPROLOL TARTRATE PO [facility] Metronidazole 500 MG Oral Tablet [facility] Amlodipine 10 MG Oral Tablet [facility] LEVETIRACETAM ER PO [facility] 1 ML evolocumab 140 MG/ML Prefilled Syringe [facility] Lisinopril 20 MG Oral Tablet [facility] Atenolol 50 MG Oral Tablet [facility] Amlodipine 10 MG Oral Tablet [facility]
== END 2021-08-30 17:47 | disposition home or self-care (01) ==
LOC: M ED 14:14
DX: M79.662 Pain in left lower leg (principal); I25.10 Atherosclerotic heart disease of native coronary artery without angina pectoris; I25.2 Old myocardial infarction; E78.5 Hyperlipidemia, unspecified; J44.9 Chronic obstructive pulmonary disease, unspecified; Z86.718 Personal history of other venous thrombosis and embolism; Z95.0 Presence of cardiac pacemaker; Z95.1 Presence of aortocoronary bypass graft